=== PATIENT | male | born 1970 | race Caucasian/White ===

== ENCOUNTER 2016-12-21 15:11 | Inpatient (IN) ==
[2016-12-21] MEDS ORDERED: Naloxone 0.4 MG/ML INJ IVP PRN (16:50)
--- NOTE | 2016-12-21 17:09 | Podiatry History & Physical ---
History of Present Illness HPI: Mr. Parish is a 46 year old male who has been admitted to [facility] after being seen in wound care clinic yesterday by . Patient has a non healing ulceration to plantar distal first metatarsal left foot. Cultures were previously obtained from wound which were positive for MRSA only sensitive to linezolid and vancomycin. Patient cannot take linezolid due to SSRI use and alcohol ingestion on daily basis and therefore will be admitted for PICC placement, administration of vancomycin IV and evaluation for osteomyelitis. Patient has a medical hx sig for DM2 and states that blood glucose ranges 200- 250, CHLOE, tobacco abuse, Etoh abuse, htn, copd, neuropathy, depression, GERD, DLD, elevated LFTs. Patient presents today in stable condition. awake alert and oriented and seeking care. Patient denies any fevers, chills, n/v or flu like symptoms. Denies any pain. States there is occasionally drainage to foot. All Systems Reviewed: A 10-system review of systems was performed and is negative for pertinent findings except as documented above in the HPI. Past Med Surg Social Fam HX - Past Medical History Medical history: arthritis, COPD, diabetes, GERD, hypertension Psychiatric history: anxiety, depression - Past Surgical History Surgical History: orthopedic, other, other - Social History Smoking Status: Current every day smoker Packs per day: 1 Smokeless Tobacco Status: No Alcohol use: occasionally Drug use: none - Family History Father Living Status: Hx Family Cardiac Disorders: Yes Hx Family Respiratory Disorders: Yes Hx Family Cancer: Yes (lymphnodes) Hx Family Endocrine Disorder: Yes (DM type II) Medications and Allergies Albuterol Sulfate [Albuterol Inhaler] 2 puff IH Q4HR PRN 04/06/16 [History] Citalopram Hydrobromide [Celexa] 40 mg PO DAILY 04/06/16 [History] Metformin HCl [Glucophage] 1,000 mg PO BID 04/06/16 [History] Metoprolol Succinate 100 mg PO BID 04/06/16 [History] Multivitamin [Multi-Day Vitamins] 1 tab PO DAILY 04/06/16 [History] Pierz-3/Dha/Epa/Fish Oil [Fish Oil 1,000 mg Softgel] 2 cap PO BID 04/06/16 [ History] Omeprazole [PriLOSEC] 40 mg PO DAILY 04/06/16 [History] Quinapril HCl [Accupril] 40 mg PO DAILY 04/06/16 [History] glipiZIDE [Glipizide] 10 mg PO BID 04/06/16 [History] hydroCHLOROthiazide [Hydrochlorothiazide] 25 mg PO DAILY 04/06/16 [History] Meloxicam 15 mg PO DAILY 06/01/16 [History] Ibuprofen [Motrin] 600 mg PO BID PRN 12/21/16 [History] Ipratropium/Albuterol Neb [Duoneb] 3 ml IH Q6H PRN 12/21/16 [History] Loratadine [Claritin] 10 mg PO DAILY 12/21/16 [History] Pregabalin [Lyrica] 150 mg PO TID 12/21/16 [History] Allergies hydrocodone [From Vicodin] Adverse Reaction (Severe, Verified 04/06/16 11:59) Nausea cephalexin [From Keflex] Adverse Reaction (Verified 04/21/16 11:26) Vomiting codeine Adverse Reaction (Verified 04/21/16 11:26) Confusion morphine Adverse Reaction (Verified 04/06/16 11:59) Rash Physical Exam - Constitutional General appearance: no acute distress - Head Head exam: Present: normal inspection - Eye Eye exam: Present: PERRL Pupils: Present: normal accommodation - Neck Neck exam: Present: full ROM, normal inspection - Respiratory Additional comments: No acute distress. Breath sounds coarse to auscultation throughout. COPD and tobacco us. - Cardiovascular Cardiovascular exam: Present: +S1, +S2 - GI/Abdominal GI/Abdominal exam: Present: normal bowel sounds, soft - Extremities Exam Extremities exam: Present: full ROM, normal capillary refill, normal inspection Additional comments: There is an ulceration of the distal first met, great toe measuring 1.8cmx2.3cmx0.5cm. Diabetic full thickness wound. 20% granulation 80% fibrous tissue. Wound is surrounded by hyperkeratotic skin. There is scant serous drainage. There is pain with palpation although patient has limited sensation to entire foot due to neuropathy. There is slight erythema and edema. There is no streaking. There is mild warmth. No odor. There is no probe to bone noted. There is no sinus tracts or undermining. There is no fluctuance consistent with abscess. - Expanded Lower Extremities Exam Neuro vascular tendon exam: Present: no vascular compromise Gait: Present: antalgic, observed and normal Results - Labs Labs: All other labs normal. Assessment and Plan (1) Foot ulcer with fat layer exposed Current visit: No Status: Acute Will admit for antibiotic therapy and evaluation for osteomyelitis Orders for lab work, imaging studies and dressing changes placed Please change dressing daily - wet to dry PICC placement for administration of vancomycin per pharmacy dosing- patient positive for MRSA - placed in isolation Patient to limit ambulation- post op shoe if ambulating Diabetic diet Hospitalist services input is appreciated for medical management Will plan on sharp debridement of all hyperkeratotic skin tomorrow Will have further plan tomorrow after labwork and imaging studies have been completed Call with any issues or concerns Qualifiers: Laterality: left Qualified Code(s): L97.522 - Non-pressure chronic ulcer of other part of left foot with fat layer exposed (2) Alcohol abuse Current visit: No Status: Acute please monitor for withdrawl and possible DTs (3) Diabetes mellitus Current visit: No Status: Acute ACHS glucose monitoring Diabetic diet Strict glucose control Qualifiers: Diabetes mellitus type: type 2 Diabetes mellitus complication status: with skin complications Diabetes mellitus complication detail: with foot ulcer Diabetes mellitus nursing home insulin use: without nursing home use Qualified Code( s): E11.621 - Type 2 diabetes mellitus with foot ulcer; L97.509 - Non-pressure chronic ulcer of other part of unspecified foot with unspecified severity (4) HTN (hypertension) Current visit: No Status: Acute medical management Qualifiers: Hypertension type: essential hypertension Qualified Code(s): I10 - Essential (primary) hypertension (5) Tobacco abuse Current visit: No Status: Acute Please administer nicotine patch as requested per patient
[2016-12-21 17:40] LABS: Basophils % 0.6 %; Eosinophils # 0.1 K/mcL (0.0-0.6); Eosinophils % 0.9 %; Hematocrit 42.7 % (37.5-50.1); Hemoglobin 13.9 g/dL (12.9-16.9); Immature Granulocytes % 0.1 % (0-4); Lymphocytes # 2.2 K/mcL (0.6-4.6); Lymphocytes % 31.7 %; Mean Corpuscular HGB Conc 32.6 g/dL (31.6-35.5); Mean Corpuscular Hemoglobin 31.8 pg (28.0-33.3); Mean Corpuscular Volume 97.7 fL (83.0-100.0); Mean Platelet Volume 9.3 fL (9.4-12.4); Monocytes # 0.9 K/mcL (0.0-1.3); Monocytes % 12.7 %; Neutrophils # 3.7 K/mcL (1.6-8.9); Platelet Count 186 K/mcL (140-400); Red Blood Count 4.37 M/mcL (4.19-5.50); Red Cell Distribution Width 13.5 % (11.5-14.5)
[2016-12-21 17:57] LABS: Alanine Aminotransferase 47 Units/L (0-55); Albumin 3.2 g/dL (3.5-5.0); Albumin/Globulin Ratio 0.7 (1.1-2.2); Alkaline Phosphatase 160 Units/L (38-126); Aspartate Amino Transferase 41 Units/L (5-34); BUN/Creatinine Ratio 13 (6-26); Bilirubin,Total 0.8 mg/dL (0.2-1.2); Blood Urea Nitrogen 11 mg/dL (8-26); Calcium 9.1 mg/dL (8.6-10.8); Carbon Dioxide 27 mEq/L (19-29); Chloride 101 mEq/L (98-109); Globulin 4.5 g/dL (2.4-3.5); Glucose 144 mg/dL (70-99); Osmolality,Calculated 282 (280-300); Potassium 3.9 mEq/L (3.5-4.5); Sodium 135 mEq/L (136-145); Total Protein 7.7 g/dL (6.0-8.3); eGFR For African Americans > 60 (> 60); eGFR For Non-African Americans > 60 (> 60)
[2016-12-21] MEDS ORDERED: Vancomycin 2,000 MG in D5% in Water 250 ML IVPB SCH (18:00)
[2016-12-21] MEDS: Vancomycin 2,000 MG in D5% in Water 500 ML IVPB SCH (18:33)
[2016-12-21] MEDS ORDERED: Ipratropium/Albuterol Neb 3 ML IH PRN (18:34)
[2016-12-21] MEDS ORDERED: *HR* Dextrose 50 % in Water (Syg) 50 ML SYRINGE IVP PRN (18:35)
[2016-12-21] MEDS ORDERED: Dextrose Gel 15 GM PO PRN ×2 (18:35)
[2016-12-21] MEDS ORDERED: D5% in Water 1,000 ML IVC PRN (18:35)
--- NOTE | 2016-12-21 18:45 | Internal Medicine Consult Note ---
Date of Encounter: 12/21/16 Time of Encounter: 18:30 - Assessment and Plan (1) Foot ulcer with fat layer exposed Current Visit: No Status: Acute Assessment and plan: Chronic left foot ulcer - will need evaluation for osteomyelitis Cultures positive for MRSA - continue IV Vancomycin via PICC line Dr. Taylor is planning for debridement Plan as per primary team Thank you for the consult Qualifiers: Laterality: left Qualified Code(s): L97.522 - Non-pressure chronic ulcer of other part of left foot with fat layer exposed (2) Diabetes mellitus Current Visit: Yes Status: Chronic Assessment and plan: Diabetes mellitus type 2, [id number], hyperglycemia - with peripheral neuropathy Glucose checks, insulin sliding scale, A1c pending Hold metformin and glipizide for now Continue Lyrica Qualifiers: Diabetes mellitus type: type 2 Diabetes mellitus complication status: with skin complications Diabetes mellitus complication detail: with foot ulcer 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 Qualified Code( s): E11.621 - Type 2 diabetes mellitus with foot ulcer; L97.509 - Non-pressure chronic ulcer of other part of unspecified foot with unspecified severity (3) HTN (hypertension) Current Visit: No Status: Chronic Assessment and plan: Essential hypertension, controlled, continue home meds, monitor Qualifiers: Hypertension type: essential hypertension Qualified Code(s): I10 - Essential (primary) hypertension (4) COPD (chronic obstructive pulmonary disease) Current Visit: No Status: Chronic Assessment and plan: Stable, not in exacerbation - DuoNeb breathing treatment as needed for shortness of breath or wheezing Qualifiers: COPD type: unspecified COPD Qualified Code(s): J44.9 - Chronic obstructive pulmonary disease, unspecified (5) Tobacco abuse Current Visit: No Status: Chronic Assessment and plan: Patient smokes about half a pack of cigarettes daily and has smoked for greater than 20 years Smoking cessation counseling, nicotine patch (6) Depression with anxiety Current Visit: Yes Status: Chronic Assessment and plan: Stable, continue Celexa (7) Alcohol abuse Current Visit: No Status: Chronic Assessment and plan: Patient states he drinks about 20-30 beers daily and drinks liquor occasionally Counseled about alcohol abuse CIWA protocol, IV Ativan 1 mg as needed for withdrawal symptoms Continue IV thiamine, folic acid, multivitamin tablet (8) DVT prophylaxis Current Visit: Yes Status: Acute Assessment and plan: Continue heparin subcutaneous Internal Medicine - CN: HPI - Data of Consult Patient: new to practice Requesting Physician: Sanford Taylor, - Consult Narrative Reason for consult: Medical management History of present illness: Mr. Parish is a 46 year old male with past medical history of COPD, diabetes, GERD, hypertension, arthritis, anxiety, depression and history of alcohol abuse. Patient was admitted by podiatry today for a nonhealing ulceration to plantar distal first metatarsal of the left foot. Examined on the [facility] floor. Patient is awake and alert. Not in any distress. In provide HISTORY. No family members at bedside. Patient states he followed up with Dr. Taylor yesterday in the clinic and he had cultures positive for MRSA. This was sensitive to Zyvox and vancomycin only. Podiatry wanted to admit him for IV antibiotics, PICC line insertion and possible debridement and evaluation of osteomyelitis. Patient states he has chronic left foot pain which is been going on for almost 2 months. He states he has had surgery on debridement over his left foot and toes in the past. Patient denies fever, chills or nausea or vomiting. He denies chest pain or shortness of breath. He states there is occasional drainage of the foot. Patient states he takes all his medications regularly. He does smoke about half pack cigarettes daily and also drinks about 20-30 peers daily. Patient has a remote history of erosive drug use. Initial labs are fairly benign. Cultures as mentioned are positive for MRSA. He will require IV vancomycin. A bone scan has been ordered by podiatry which will be done in the a.m. Hospitalist service has been consulted by Dr. Taylor for medical management. Patient will be on insulin sliding scale, CIWA protocol , nicotine patch and we will continue his home medications. Patient has been explained about his condition and plan of care. He understood and agreed. No unanswered questions. CODE STATUS full code. Thank you for the consult. We will follow up on the patient. Past Med Surg Social Fam HX - Past Medical History Medical history: arthritis, COPD, diabetes, GERD, hypertension Psychiatric history: anxiety, depression - Past Surgical History Surgical History: orthopedic, other, other - Social History Smoking Status: Current every day smoker Packs per day: 1 Alcohol use: occasionally Drug use: none, cocaine (History of cocaine use about 20 years ago) Activity Level: Independent ambulation - Family History Father Living Status: Hx Family Cardiac Disorders: Yes ([place] ) Hx Family Respiratory Disorders: Yes Hx Family Cancer: Yes (lymphnodes) Hx Family Endocrine Disorder: Yes (DM type II) - Constitutional Constitutional: no fatigue, no fever(s), no weakness - EENT Eyes: no blurry vision - Cardiovascular Cardiovascular ROS IM: no chest pain, no dyspnea, no dyspnea on exertion, no orthopnea, no syncope - Respiratory Respiratory: no cough, no dyspnea, no wheezing, no chest congestion - Gastrointestinal Gastrointestinal: no abdominal pain, no belching, no bloating, no cramping, no diarrhea, no melena, no nausea, no vomiting - Genitourinary Genitourinary ROS male: no dysuria - Musculoskeletal Additional comments: Left foot pain and swelling - Neurological Neurological ROS: no abnormal gait, no dizziness, no focal weakness, no numbness , no tingling Internal Medicine - CN: Meds Albuterol Sulfate [Albuterol Inhaler] 2 puff IH Q4HR PRN 04/06/16 [History] Citalopram Hydrobromide [Celexa] 40 mg PO DAILY 04/06/16 [History] Metformin HCl [Glucophage] 1,000 mg PO BID 04/06/16 [History] Metoprolol Succinate 100 mg PO BID 04/06/16 [History] Multivitamin [Multi-Day Vitamins] 1 tab PO DAILY 04/06/16 [History] [place]-3/Dha/Epa/Fish Oil [Fish Oil 1,000 mg Softgel] 2 cap PO BID 04/06/16 [ History] Omeprazole [PriLOSEC] 40 mg PO DAILY 04/06/16 [History] Quinapril HCl [Accupril] 40 mg PO DAILY 04/06/16 [History] glipiZIDE [Glipizide] 10 mg PO BID 04/06/16 [History] hydroCHLOROthiazide [Hydrochlorothiazide] 25 mg PO DAILY 04/06/16 [History] Meloxicam 15 mg PO DAILY 06/01/16 [History] Ibuprofen [Motrin] 600 mg PO BID PRN 12/21/16 [History] Ipratropium/Albuterol Neb [Duoneb] 3 ml IH Q6H PRN 12/21/16 [History] Loratadine [Claritin] 10 mg PO DAILY 12/21/16 [History] Pregabalin [Lyrica] 150 mg PO TID 12/21/16 [History] Allergies hydrocodone [From Vicodin] Adverse Reaction (Severe, Verified 04/06/16 11:59) Nausea cephalexin [From Keflex] Adverse Reaction (Verified 04/21/16 11:26) Vomiting codeine Adverse Reaction (Verified 04/21/16 11:26) Confusion morphine Adverse Reaction (Verified 04/06/16 11:59) Rash Internal Medicine - CN: Exam - Constitutional Vitals: Temp Pulse Resp BP Pulse Ox 98.2 F 61 16 131/66 98 12/21/16 17:08 12/21/16 17:08 12/21/16 17:08 12/21/16 17:08 12/21/16 17:08 General appearance IM: Present: A&O X 3, morbidly obese, pleasant, no acute distress, answers questions appropriately - Head Head exam: Present: atraumatic - Eye Eye exam: Present: EOMI - ENT ENT exam: Present: mucous membranes moist - Neck Neck exam general surgery: Present: supple - Respiratory Respiratory exam: Present: CTAB. Absent: rales, rhonchi, stridor, wheezes, tachypnea - Cardiovascular Cardiovascular exam IM: Present: RRR, +S1, +S2 - GI/Abdominal GI/Abdominal exam IM: Present: distended (Obese ), soft. Absent: firm, guarding , rigid, tenderness - Extremities Exam Extremities exam IM: Present: radial pulses palpable and symetrical. Absent: cyanotic Additional comments: Ulceration of distal first metatarsal and great toe on the left foot, diabetic wound, no drainage, mild edema of the left lower leg and left foot - Neurological Exam Neurological exam: Present: alert, oriented X3, no focal deficits Internal Medicine - CN: Reslt - Labs CBC & Chem 7: 12/21/16 17:09 12/21/16 17:09 Labs: Short CBC 12/21/16 Range/Units 17:09 WBC 6.8 (4.3-11.1) K/mcL Hgb 13.9 (12.9-16.9) g/dL Hct 42.7 (37.5-50.1) % Plt Count 186 (140-400) K/mcL Neutrophils # 3.7 (1.6-8.9) K/mcL BMP 12/21/16 17:09 Sodium 135 L Potassium 3.9 Chloride 101 Carbon Dioxide 27 BUN 11 Creatinine 0.87 Glucose 144 H Calcium 9.1 Liver Function 12/21/16 Range/Units 17:09 Total Bilirubin 0.8 (0.2-1.2) mg/dL AST 41 H (5-34) Units/L ALT 47 (0-55) Units/L Alkaline Phosphatase 160 H (38-126) Units/L Albumin 3.2 L (3.5-5.0) g/dL - Impressions Impressions Foot X-Ray 12/21/16 17:04 IMPRESSION: Soft tissue ulceration along the plantar aspect of the forefoot likely at the level of the 1st digit. 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 Lucency in the 1st proximal phalanx increased in prominence. This may represent erosion from osteomyelitis. D/ / Delvis Mcclendon MD / Delvis Mcclendon MD Interpreting Provider: Delvis Mcclendon MD Consult Discharge Plan - Plan Referrals: Froylan Guido MD [Primary Care Provider] -
[2016-12-21] MEDS: Thiamine (B-1) 100 MG in D5% in Water 50 ML IVPB SCH (19:49)
[2016-12-21] MEDS: *HR* Heparin 5,000 UNIT/ML VIAL SQ SCH (19:50)
[2016-12-21 19:53] LABS: Hemoglobin A1C 5.4 %
[2016-12-21] MEDS: (Omega-3/Dha/Epa/Fish Oil [Fish Oil 1,000 Mg Softgel]) PO SCH (19:53)
[2016-12-21] MEDS: Folic Acid 1 MG TABLET PO SCH (19:53)
[2016-12-21] MEDS: Nicotine 21 MG PATCH.TD24 TD SCH (19:53)
[2016-12-21] MEDS: Pregabalin 75 MG CAPSULE PO SCH (19:53)
[2016-12-21] MEDS: Metoprolol XL (24 HR) Succ 50 MG TAB.ER.24H PO SCH (19:53)
[2016-12-21] MEDS: Insulin LISPRO 300 UNITS/3 ML VIAL SQ SCH (22:09)
[2016-12-21 22:47] LABS: C-Reactive Protein 15 mg/L (Less than 5)
[2016-12-22] MEDS: *HR* Heparin 5,000 UNIT/ML VIAL SQ SCH ×2 (05:49→17:34)
[2016-12-22] MEDS: Vancomycin 2,000 MG in D5% in Water 500 ML IVPB SCH ×2 (05:53→17:35)
[2016-12-22 06:44] LABS: Chol/HDL Ratio 4.9 (0-4.9)
[2016-12-22 07:06] LABS: Thyroid Stimulating Hormone 3.216 mcIU/mL (0.350-4.840)
[2016-12-22] MEDS: Loratadine 10 MG TABLET PO SCH (08:29)
[2016-12-22] MEDS: Insulin LISPRO 300 UNITS/3 ML VIAL SQ SCH ×4 (08:29→21:58)
[2016-12-22] MEDS: Pregabalin 75 MG CAPSULE PO SCH ×3 (08:30→20:19)
[2016-12-22] MEDS: Multivit/Ca/Min/Fe/FA 1 TAB TABLET PO SCH (08:30)
[2016-12-22] MEDS: Metoprolol XL (24 HR) Succ 50 MG TAB.ER.24H PO SCH ×2 (08:30→20:19)
[2016-12-22] MEDS: Nicotine 21 MG PATCH.TD24 TD SCH (08:30)
[2016-12-22] MEDS: Lisinopril 20 MG TABLET PO SCH (08:30)
[2016-12-22] MEDS: Folic Acid 1 MG TABLET PO SCH (08:30)
[2016-12-22] MEDS: hydroCHLOROthiazide 25 MG TABLET PO SCH (08:30)
[2016-12-22] MEDS: (Omega-3/Dha/Epa/Fish Oil [Fish Oil 1,000 Mg Softgel]) PO SCH ×2 (08:31→20:20)
[2016-12-22] MEDS: Thiamine (B-1) 100 MG in D5% in Water 50 ML IVPB SCH (08:47)
--- NOTE | 2016-12-22 14:01 | Podiatry Progress Note ---
Date of Encounter: 12/22/16 Time of Encounter: 12:00 - Assessment and Plan (1) Foot ulcer with fat layer exposed Current Visit: No Status: Acute Patient will remain admitted for antibiotic therapy and evaluation for osteomyelitis labs are remotely benign at this time Xray and bone scan were completed and are concerning for osteomyelitis- will order indium bone scan for further evaluation Sharp debridement of hyperkeratotic skin surrounding ulceration completed at bedside- no complications- tolerated well Please continue to change dressing daily - wet to dry powerglide was placed until blood cultures are negative, then will have PICC placement for administration of vancomycin per pharmacy dosing- patient positive for MRSA - placed in isolation Patient to limit ambulation- post op shoe if ambulating Hospitalist services input is appreciated for medical management Will plan on sharp debridement of all hyperkeratotic skin tomorrow Patient will have indium scan on sunday or sunday Bone Scan Nuclear Medicine 12/21/16 17:04 IMPRESSION: Findings concerning for osteomyelitis in the remnant proximal phalanx of the left great toe and possibly in the left distal 1st metatarsal. D/ / 12/22/2016 11:42:50 Joe Seals MD / kitty Interpreting Provider: Joe Seals MD Foot X-Ray 12/21/16 17:04 IMPRESSION: Soft tissue ulceration along the plantar aspect of the forefoot likely at the level of the 1st digit. 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 Lucency in the 1st proximal phalanx increased in prominence. This may represent erosion from osteomyelitis. D/ / Delvis Mcclendon MD / Delvis Mcclendon MD Interpreting Provider: Delvis Mcclendon MD Qualifiers: Laterality: left Qualified Code(s): L97.522 - Non-pressure chronic ulcer of other part of left foot with fat layer exposed (2) Alcohol abuse Current Visit: No Status: Chronic please monitor for withdrawl and possible DTs (3) Diabetes mellitus Current Visit: Yes Status: Chronic ACHS glucose monitoring Diabetic diet Strict glucose control Qualifiers: Diabetes mellitus type: type 2 Diabetes mellitus complication status: with skin complications Diabetes mellitus complication detail: with foot ulcer 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 Patient was admitted yesterday and started on vancomycin for MRSA which was isolated in the wound. On arrival today patient is resting comfortably. Patient underwent an xray yesterday and bone scan today. Lab work is relatively benign at this time. Patient denies any pain. Patient denies any fevers chill n/v or flu like symptoms overnight Objective - Vital Signs Vital Signs: Vital Signs Temp Pulse Resp BP Pulse Ox 12/22/16 11:08 98.4 F 52 16 129/65 96 12/22/16 07:14 98.0 F 57 18 115/66 98 12/22/16 04:39 98.2 F 57 17 122/69 96 12/21/16 22:33 23 97 12/21/16 22:32 98.3 F 58 18 121/67 97 12/21/16 20:13 98.3 F 57 18 135/84 97 12/21/16 17:08 98.2 F 61 16 131/66 98 Intake and Output 12/21/16 12/22/16 12/22/16 23:59 07:59 15:59 Intake Total 941 / 941 1031 / 1031 Output Total 0 / 0 Balance 941 / 941 1031 / 1031 Intake: IV Fluids 551 / 551 551 / 551 Vitamin B-1 100 MG In 51 / 51 51 / 51 Dextrose 5% 50 ML @ 50 mls/hr IVPB DAILY [facility] Rx# :[id number] Vancocin 2,000 MG In 500 / 500 500 / 500 Dextrose 5% 500 ML @ 250 mls/hr IVPB Q12H [facility] Rx#: [id number] Oral 390 / 390 480 / 480 Output: Urine 0 / 0 Other: Meal Breakfast Percent of Meal Consumed 75% # Voids 1 1 Weight 140.614 kg Blood Glucose* 189 167 148 - Exam Exam: Ulceration of plantar aspect of left foot distal 1st met remains, surrounded by hyperkeratosis Debrided at bedside, tolerated well, no complications Scant serous drainage No pain with palpation Pulses remain palpable bilaterally Cap refill <3 seconds Sensation intact to moderate touch No calf pain with manual compression Movement intact - Lab Result Diagrams: 12/21/16 17:09 12/21/16 17:09 Labs: Abnormal lab results MPV 9.3 fL (9.4-12.4) L 12/21/16 17:09 ESR 49 mm/hr (0-10) H 12/21/16 17:11 Sodium 135 mEq/L (136-145) L 12/21/16 17:09 Glucose 144 mg/dL (70-99) H 12/21/16 17:09 POC Glucose 148 (58-89) H 12/21/16 17:07 AST 41 Units/L (5-34) H 12/21/16 17:09 Alkaline Phosphatase 160 Units/L (38-126) H 12/21/16 17:09 C-Reactive Protein 15 mg/L (Less than 5) H 12/21/16 17:09 Albumin 3.2 g/dL (3.5-5.0) L 12/21/16 17:09 Globulin 4.5 g/dL (2.4-3.5) H 12/21/16 17:09 Albumin/Globulin Ratio 0.7 (1.1-2.2) L 12/21/16 17:09 Triglycerides 222 mg/dL (< 150) H 12/22/16 05:25 VLDL Cholesterol, Calc 44 mg/dL (< 31) H 12/22/16 05:25 HDL Cholesterol 35 mg/dL (40-59) L 12/22/16 05:25 Consult Discharge Plan - Plan Referrals: Froylan Guido MD [Primary Care Provider] -
--- NOTE | 2016-12-22 15:26 | Internal Med Progress Note ---
Date of Encounter: 12/22/16 Time of Encounter: 07:45 - Assessment and plan (1) Foot ulcer with fat layer exposed Current Visit: No Status: Acute Assessment and plan: Chronic left foot ulcer - probable osteomyelitis Cultures positive for MRSA - continue IV Vancomycin via PICC line Bone scan results pending Dr. Taylor is planning for debridement probably tomorrow, Plan as per primary team Thank you for the consult. We will follow up on the patient. Qualifiers: Laterality: left Qualified Code(s): L97.522 - Non-pressure chronic ulcer of other part of left foot with fat layer exposed (2) Diabetes mellitus Current Visit: Yes Status: Chronic Assessment and plan: Diabetes mellitus type 2, [id number], hyperglycemia - with peripheral neuropathy Glucose checks ACHS, insulin sliding scale HbA1c - 5.4 Hold metformin and glipizide for now, restart home meds when patient is discharged Continue Lyrica Qualifiers: Diabetes mellitus type: type 2 Diabetes mellitus complication status: with skin complications Diabetes mellitus complication detail: with foot ulcer Diabetes mellitus usp insulin use: without usp use Qualified Code( s): E11.621 - Type 2 diabetes mellitus with foot ulcer; L97.509 - Non-pressure chronic ulcer of other part of unspecified foot with unspecified severity (3) HTN (hypertension) Current Visit: No Status: Chronic Assessment and plan: Essential hypertension, controlled, continue home meds, monitor Qualifiers: Hypertension type: essential hypertension Qualified Code(s): I10 - Essential (primary) hypertension (4) COPD (chronic obstructive pulmonary disease) Current Visit: No Status: Chronic Assessment and plan: Stable, not in exacerbation - DuoNeb breathing treatment as needed for shortness of breath or wheezing Qualifiers: COPD type: unspecified COPD Qualified Code(s): J44.9 - Chronic obstructive pulmonary disease, unspecified (5) Tobacco abuse Current Visit: No Status: Chronic Assessment and plan: Patient smokes about half a pack of cigarettes daily and has smoked for greater than 20 years Smoking cessation counseling, nicotine patch (6) Depression with anxiety Current Visit: Yes Status: Chronic Assessment and plan: Stable, continue Celexa (7) Alcohol abuse Current Visit: No Status: Chronic Assessment and plan: Patient states he drinks about 20-30 beers daily and drinks liquor occasionally Counseled about alcohol abuse CIWA protocol, IV Ativan 1 mg as needed for withdrawal symptoms Continue IV thiamine, folic acid, multivitamin tablet (8) DVT prophylaxis Current Visit: Yes Status: Acute Assessment and plan: Continue heparin subcutaneous - Time Spent With Patient 25 - 35 minutes - Subjective Interval history: Examined this morning. Patient is awake and alert. Not in any distress. Tolerating oral diet. Denies chest pain or shortness of breath. Patient complains of left foot pain. Worse with weightbearing. Says it is sharp at times. Improves with pain meds. Patient also complains of tremors and anxiety. Patient is probably having early alcohol withdrawal symptoms. IV antibiotics continued for osteomyelitis. Debridement scheduled for tomorrow. No fever. No other acute events or complaints. - Constitutional Vitals: Temp Pulse Resp BP Pulse Ox 98.4 F 52 16 129/65 96 12/22/16 11:08 12/22/16 11:08 12/22/16 11:08 12/22/16 11:08 12/22/16 11:08 General appearance: Present: A&O X 3, morbidly obese, pleasant, no acute distress, answers questions appropriately Exam: anxiety - Head Head exam: Present: atraumatic - Eye Eye exam: Present: EOMI - ENT ENT exam: Present: mucous membranes moist - Neck Neck exam general surgery: Present: supple - Respiratory Respiratory exam: Present: CTAB. Absent: rales, rhonchi, stridor, wheezes, tachypnea - Cardiovascular Cardiovascular exam: Present: RRR, +S1, +S2 - GI/Abdominal GI/Abdominal exam: Present: distended (obese), soft. Absent: firm, guarding, rigid, tenderness - Extremities Exam Extremities exam: Present: radial pulses palpable and symetrical. Absent: cyanotic Additional comments: Ulceration of distal first metatarsal and great toe on the left foot, diabetic wound, no drainage, mild edema of the left lower leg and left foot - Neurological Exam Neurological exam: Present: alert, oriented X3, no focal deficits Internal Medicine: Result - Labs CBC & Chem 7: 12/21/16 17:09 12/21/16 17:09 Labs: Short CBC 12/21/16 Range/Units 17:09 WBC 6.8 (4.3-11.1) K/mcL Hgb 13.9 (12.9-16.9) g/dL Hct 42.7 (37.5-50.1) % Plt Count 186 (140-400) K/mcL Neutrophils # 3.7 (1.6-8.9) K/mcL BMP 12/21/16 17:09 Sodium 135 L Potassium 3.9 Chloride 101 Carbon Dioxide 27 BUN 11 Creatinine 0.87 Glucose 144 H Calcium 9.1 Liver Function 12/21/16 Range/Units 17:09 Total Bilirubin 0.8 (0.2-1.2) mg/dL AST 41 H (5-34) Units/L ALT 47 (0-55) Units/L Alkaline Phosphatase 160 H (38-126) Units/L Albumin 3.2 L (3.5-5.0) g/dL - Impressions Impressions Bone Scan Nuclear Medicine 12/21/16 17:04 IMPRESSION: Findings concerning for osteomyelitis in the remnant proximal phalanx of the left great toe and possibly in the left distal 1st metatarsal. D/ / 12/22/2016 11:42:50 Joe Seals MD / kitty Interpreting Provider: Joe Seals MD Foot X-Ray 12/21/16 17:04 IMPRESSION: Soft tissue ulceration along the plantar aspect of the forefoot likely at the level of the 1st digit. 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 Lucency in the 1st proximal phalanx increased in prominence. This may represent erosion from osteomyelitis. D/ / Delvis Mcclendon MD / Delvis Mcclendon MD Interpreting Provider: Delvis Mcclendon MD Consult Discharge Plan - Plan Referrals: Froylan Guido MD [Primary Care Provider] -
[2016-12-23 05:27] LABS: BUN/Creatinine Ratio 13 (6-26); Blood Urea Nitrogen 12 mg/dL (8-26); Calcium 9.2 mg/dL (8.6-10.8); Carbon Dioxide 28 mEq/L (19-29); Chloride 102 mEq/L (98-109); Glucose 159 mg/dL (70-99); Osmolality,Calculated 287 (280-300); Potassium 3.9 mEq/L (3.5-4.5); Sodium 137 mEq/L (136-145); eGFR For African Americans > 60 (> 60); eGFR For Non-African Americans > 60 (> 60)
[2016-12-23] MEDS ORDERED: Vancomycin 1,500 MG in D5% in Water 250 ML IVPB SCH (06:00)
[2016-12-23] MEDS: *HR* Heparin 5,000 UNIT/ML VIAL SQ SCH ×2 (06:05→16:51)
[2016-12-23] MEDS: Vancomycin 2,000 MG in D5% in Water 500 ML IVPB SCH (06:06)
[2016-12-23] MEDS: Insulin LISPRO 300 UNITS/3 ML VIAL SQ SCH ×4 (07:45→20:59)
[2016-12-23] MEDS: Loratadine 10 MG TABLET PO SCH (07:46)
[2016-12-23] MEDS: Pregabalin 75 MG CAPSULE PO SCH ×3 (07:46→19:38)
[2016-12-23] MEDS: Folic Acid 1 MG TABLET PO SCH (07:46)
[2016-12-23] MEDS: Multivit/Ca/Min/Fe/FA 1 TAB TABLET PO SCH (07:46)
[2016-12-23] MEDS: Lisinopril 20 MG TABLET PO SCH (07:46)
[2016-12-23] MEDS: hydroCHLOROthiazide 25 MG TABLET PO SCH (07:46)
[2016-12-23] MEDS: Nicotine 21 MG PATCH.TD24 TD SCH (07:47)
[2016-12-23] MEDS: Thiamine (B-1) 100 MG in D5% in Water 50 ML IVPB SCH (07:47)
[2016-12-23] MEDS: Metoprolol XL (24 HR) Succ 50 MG TAB.ER.24H PO SCH ×2 (07:47→19:38)
[2016-12-23] MEDS: (Omega-3/Dha/Epa/Fish Oil [Fish Oil 1,000 Mg Softgel]) PO SCH ×2 (07:47→19:41)
--- NOTE | 2016-12-23 09:15 | Podiatry Progress Note ---
Date of Encounter: 12/22/16 Time of Encounter: 18:00 - Assessment and Plan (1) Cellulitis of left foot due to methicillin-resistant Staphylococcus aureus Current Visit: Yes Status: Acute Assessment: #1 MRSA cellulitis associated with diabetic foot ulcer left #2 we will review 3-phase bone scan. No definitive diagnosis at this time because of the altered biomechanics due to previous surgical intervention. If the 3-phase bone scan were completely negative we would no longer need an indium labeled cell scan but due to the positive nature of these 3-phase scan will need to proceed with the indium labeled cell scan to determine if our index of suspicion of osteomyelitis is proven #3 history of diabetes with neuropathy and multiple comorbidities as outlined in history Plan: #1 continue vancomycin monitor kidney function #2 daily wound care #3 pending indium labeled white blood cell scan for Sunday, December 25 #4 showed blood cultures be negative then we can proceed with use of PICC line and IV antibiotics outpatient/vancomycin (2) Toe ulcer Current Visit: No Status: Acute Qualifiers: Laterality: left Non-pressure ulcer stage: limited to breakdown of skin Qualified Code(s): L97.521 - Non-pressure chronic ulcer of other part of left foot limited to breakdown of skin Subjective Principal diagnosis: MRSA cellulitis left foot, with diabetic foot ulcer Interval history: Patient recently underwent three-phase bone scan with impending indium labeled white cell scan on Sunday. Proven MRSA sensitive to Zyvox, vancomycin and rifampin and clindamycin. Because the patient's SSI use and alcohol abuse patient will continue on vancomycin as the antibiotic of choice. Stable no complaints of chest pain nausea vomiting fever chills Objective - Vital Signs Vital Signs: Vital Signs Temp Pulse Resp BP Pulse Ox 12/23/16 07:57 97 12/23/16 07:29 98.0 F 58 16 133/69 97 12/23/16 04:14 97.6 F 58 16 138/77 98 12/22/16 23:31 14 96 12/22/16 23:17 98.0 F 56 16 106/62 97 12/22/16 20:34 98 12/22/16 20:32 98.2 F 58 18 131/57 96 12/22/16 16:51 97.7 F 56 14 144/78 96 12/22/16 15:21 97.7 F 57 16 128/72 96 12/22/16 11:08 98.4 F 52 16 129/65 96 Intake and Output 12/22/16 12/23/16 12/23/16 23:59 07:59 15:59 Intake Total 500 / 500 0 / 0 Output Total 700 / 700 Balance 500 / 500 -700 / -700 Intake: IV Fluids 500 / 500 Vancocin 2,000 MG In 500 / 500 Dextrose 5% 500 ML @ 250 mls/hr IVPB Q12H [facility] Rx#: [id number] Oral 0 / 0 Output: Urine 700 / 700 Other: Weight 133.719 kg Blood Glucose* 147 246 Patient Weight 12/23/16 23:59 Weight 133.719 kg - Exam Exam: Slow resolution of cellulitis and edema/erythema of the right distal medial forefoot and wound without evidence of fluctuance abscess ascending cellulitis or lymphangitis at this time - Lab Result Diagrams: 12/21/16 17:09 12/23/16 04:59 Labs: Abnormal lab results MPV 9.3 fL (9.4-12.4) L 12/21/16 17:09 ESR 49 mm/hr (0-10) H 12/21/16 17:11 Glucose 159 mg/dL (70-99) H 12/23/16 04:59 POC Glucose 246 (58-89) H 12/23/16 07:34 AST 41 Units/L (5-34) H 12/21/16 17:09 Alkaline Phosphatase 160 Units/L (38-126) H 12/21/16 17:09 C-Reactive Protein 15 mg/L (Less than 5) H 12/21/16 17:09 Albumin 3.2 g/dL (3.5-5.0) L 12/21/16 17:09 Globulin 4.5 g/dL (2.4-3.5) H 12/21/16 17:09 Albumin/Globulin Ratio 0.7 (1.1-2.2) L 12/21/16 17:09 Triglycerides 222 mg/dL (< 150) H 12/22/16 05:25 VLDL Cholesterol, Calc 44 mg/dL (< 31) H 12/22/16 05:25 HDL Cholesterol 35 mg/dL (40-59) L 12/22/16 05:25 Microbiology, Last 48 Hours 12/21/16 19:22 Blood Culture - Preliminary Peripheral Venipuncture No growth. 12/21/16 19:22 Blood Culture - Preliminary Peripheral Venipuncture No growth. Consult Discharge Plan - Plan Referrals: Froylan Guido MD [Primary Care Provider] -
--- NOTE | 2016-12-23 11:22 | Internal Med Progress Note ---
Date of Encounter: 12/23/16 Time of Encounter: 11:20 - Assessment and plan (1) Cellulitis of left foot due to methicillin-resistant Staphylococcus aureus Current Visit: Yes Status: Acute Assessment and plan: Sof ar blood cx - no growth Cont continue vancomycin IV Cont close monitoring renal function Cont local daily wound care Scheduled for indium labeled white blood cell scan for December 25 (2) Osteomyelitis of toe of left foot Current Visit: Yes Status: Acute (3) Alcohol abuse Current Visit: No Status: Chronic Assessment and plan: Patient stated he drinks about 20-30 beers daily and drinks liquor occasionally Counseled about alcohol abuse [place] protocol, IV Ativan 1 mg as needed for withdrawal symptoms Continue thiamine, folic acid, multivitamin tablet Dr. Taylor started him 3 beers with each meal today (4) HTN (hypertension) Current Visit: No Status: Chronic Assessment and plan: Essential hypertension, controlled, continue home meds, monitor Qualifiers: Hypertension type: essential hypertension Qualified Code(s): I10 - Essential (primary) hypertension (5) COPD (chronic obstructive pulmonary disease) Current Visit: No Status: Chronic Assessment and plan: Stable, not in exacerbation - DuoNeb breathing treatment as needed for shortness of breath or wheezing Qualifiers: COPD type: unspecified COPD Qualified Code(s): J44.9 - Chronic obstructive pulmonary disease, unspecified (6) Tobacco abuse Current Visit: No Status: Chronic Assessment and plan: Patient smokes about half a pack of cigarettes daily and has smoked for greater than 20 years Smoking cessation counseling, nicotine patch (7) DVT prophylaxis Current Visit: Yes Status: Acute Assessment and plan: Continue heparin subcutaneous - Subjective Interval history: Mr. Parish is a 46 year old male who has been admitted to [facility] after being seen in wound care clinic by . Patient has a non healing ulceration to plantar distal first metatarsal left foot. Cultures were previously obtained from wound which were positive for MRSA only sensitive to linezolid and vancomycin. Patient cannot take linezolid due to SSRI use and alcohol ingestion on daily basis and therefore pt was admitted for PICC placement, administration of vancomycin IV and evaluation for osteomyelitis. Pt denied any CP / SOB. He does drink 12-20 beers every day. He had his last alcohol 3 days ago. today he c /o mild tremors. - Constitutional Vitals: Temp Pulse Resp BP Pulse Ox 98.0 F 58 16 133/69 97 12/23/16 07:29 12/23/16 07:29 12/23/16 07:29 12/23/16 07:29 12/23/16 07:57 General appearance: Present: A&O X 3, morbidly obese, pleasant, no acute distress, answers questions appropriately - Head Head exam: Present: atraumatic, normal inspection - Respiratory Respiratory exam: Present: decreased breath sounds, wheezes. Absent: rales, respiratory distress, rhonchi - Cardiovascular Cardiovascular exam: Present: RRR, +S1, +S2. Absent: systolic murmur - GI/Abdominal GI/Abdominal exam: Present: distended, normal bowel sounds, soft. Absent: rebound, tenderness - Extremities Exam Additional comments: non healing 1 cm size ulcer over Left great toe planter region at 1st MTP proximal base region noticed. Pulses are palpable and diminished - Psychiatric Psychiatric exam: Present: normal affect, normal mood Internal Medicine: Result - Labs CBC & Chem 7: 12/21/16 17:09 12/23/16 04:59 Labs: BMP 12/23/16 04:59 Sodium 137 Potassium 3.9 Chloride 102 Carbon Dioxide 28 BUN 12 Creatinine 0.92 Glucose 159 H Calcium 9.2 - Impressions Impressions Bone Scan Nuclear Medicine 12/21/16 17:04 IMPRESSION: Findings concerning for osteomyelitis in the remnant proximal phalanx of the left great toe and possibly in the left distal 1st metatarsal. D/ / 12/22/2016 11:42:50 Joe Seals MD / kitty Interpreting Provider: Joe Seals MD Consult Discharge Plan - Plan Referrals: Froylan Guido MD [Primary Care Provider] -
[2016-12-23] MEDS: Beer can PO SCH ×2 (11:55→16:48)
[2016-12-23] MEDS: Vancomycin 1,250 MG in D5% in Water 250 ML IVPB SCH (16:48)
[2016-12-24 03:33] LABS: BUN/Creatinine Ratio 12 (6-26); Blood Urea Nitrogen 11 mg/dL (8-26); eGFR For African Americans > 60 (> 60); eGFR For Non-African Americans > 60 (> 60)
[2016-12-24] MEDS: Vancomycin 1,250 MG in D5% in Water 250 ML IVPB SCH ×2 (05:32→18:45)
[2016-12-24] MEDS: *HR* Heparin 5,000 UNIT/ML VIAL SQ SCH ×2 (05:32→18:45)
[2016-12-24] MEDS: Pregabalin 75 MG CAPSULE PO SCH ×3 (09:28→21:04)
[2016-12-24] MEDS: Beer can PO SCH ×3 (09:28→17:30)
[2016-12-24] MEDS: Lisinopril 20 MG TABLET PO SCH (09:29)
[2016-12-24] MEDS: Loratadine 10 MG TABLET PO SCH (09:29)
[2016-12-24] MEDS: Metoprolol XL (24 HR) Succ 50 MG TAB.ER.24H PO SCH ×2 (09:29→21:11)
[2016-12-24] MEDS: hydroCHLOROthiazide 25 MG TABLET PO SCH (09:29)
[2016-12-24] MEDS: Thiamine (B-1) 100 MG in D5% in Water 50 ML IVPB SCH (09:29)
[2016-12-24] MEDS: Multivit/Ca/Min/Fe/FA 1 TAB TABLET PO SCH (09:29)
[2016-12-24] MEDS: Nicotine 21 MG PATCH.TD24 TD SCH (09:29)
[2016-12-24] MEDS: Folic Acid 1 MG TABLET PO SCH (09:30)
[2016-12-24] MEDS: (Omega-3/Dha/Epa/Fish Oil [Fish Oil 1,000 Mg Softgel]) PO SCH ×2 (09:30→21:58)
[2016-12-24] MEDS: Insulin LISPRO 300 UNITS/3 ML VIAL SQ SCH ×4 (09:31→21:11)
--- NOTE | 2016-12-24 10:30 | Internal Med Progress Note ---
Date of Encounter: 12/24/16 Time of Encounter: 10:28 - Assessment and plan (1) Cellulitis of left foot due to methicillin-resistant Staphylococcus aureus Current Visit: Yes Status: Acute Assessment and plan: So far blood cx - no growth Cont continue vancomycin IV Cont close monitoring renal function Cont local daily wound care Scheduled for indium labeled white blood cell scan for December 25 (2) Osteomyelitis of toe of left foot Current Visit: Yes Status: Acute (3) Alcohol abuse Current Visit: No Status: Chronic Assessment and plan: Patient stated he drinks about 20-30 beers daily and drinks liquor occasionally Counseled about alcohol abuse [facility] protocol, IV Ativan 1 mg as needed for withdrawal symptoms Continue thiamine, folic acid, multivitamin tablet Dr. Taylor started him 1 beer with each meal will give him librium 25mg TID (4) HTN (hypertension) Current Visit: No Status: Chronic Assessment and plan: Essential hypertension, controlled, continue home meds, monitor Qualifiers: Hypertension type: essential hypertension Qualified Code(s): I10 - Essential (primary) hypertension (5) COPD (chronic obstructive pulmonary disease) Current Visit: No Status: Chronic Assessment and plan: Stable, not in exacerbation - DuoNeb breathing treatment as needed for shortness of breath or wheezing Qualifiers: COPD type: unspecified COPD Qualified Code(s): J44.9 - Chronic obstructive pulmonary disease, unspecified (6) Tobacco abuse Current Visit: No Status: Chronic Assessment and plan: Patient smokes about half a pack of cigarettes daily and has smoked for greater than 20 years Smoking cessation counseling, nicotine patch (7) DVT prophylaxis Current Visit: Yes Status: Acute Assessment and plan: Continue heparin subcutaneous - Subjective Interval history: Mr. Parish is a 46 year old male who has been admitted to [facility] after being seen in wound care clinic by . Patient has a non healing ulceration to plantar distal first metatarsal left foot. Cultures were previously obtained from wound which were positive for MRSA only sensitive to linezolid and vancomycin. Patient cannot take linezolid due to SSRI use and alcohol ingestion on daily basis and therefore pt was admitted for PICC placement, administration of vancomycin IV and evaluation for osteomyelitis. Pt denied any CP / SOB. He does drink 20 - 30 beers every day. He had his last alcohol the night before he got admitted here. His tremors / shakiness are better today - Constitutional Vitals: Temp Pulse Resp BP Pulse Ox 97.7 F 54 16 104/58 97 12/24/16 04:30 12/24/16 04:30 12/24/16 04:30 12/24/16 04:30 12/24/16 09:00 General appearance: Present: A&O X 3, morbidly obese, pleasant, no acute distress, answers questions appropriately - Head Head exam: Present: atraumatic, normal inspection - Neck Neck exam general surgery: Present: supple. Absent: tenderness - Respiratory Respiratory exam: Present: decreased breath sounds, wheezes. Absent: rales, respiratory distress, rhonchi - Cardiovascular Cardiovascular exam: Present: RRR, +S1, +S2. Absent: diastolic murmur, gallop, rubs, systolic murmur - GI/Abdominal GI/Abdominal exam: Present: distended, normal bowel sounds, soft. Absent: rebound, rigid - Extremities Exam Extremities exam: Present: pedal edema. Absent: calf tenderness, tenderness Additional comments: non healing 1 cm size ulcer over Left great toe planter region at 1st MTP proximal base region noticed. Pulses are palpable and diminished - Neurological Exam Neurological exam: Present: alert, oriented X3 - Psychiatric Psychiatric exam: Present: normal affect, normal mood Internal Medicine: Result - Labs CBC & Chem 7: 12/21/16 17:09 12/24/16 03:10 Labs: BMP 12/24/16 03:10 BUN 11 Creatinine 0.92 Consult Discharge Plan - Plan Referrals: Froylan Guido MD [Primary Care Provider] - (web request sent on 12/23/16)
[2016-12-25] MEDS ORDERED: Acetaminophen 325 MG TABLET PO PRN (02:53)
[2016-12-25 05:52] LABS: INR 1.2
[2016-12-25 06:03] LABS: Basophils % 0.6 %; Eosinophils # 0.1 K/mcL (0.0-0.6); Eosinophils % 1.8 %; Hemoglobin 13.7 g/dL (12.9-16.9); Immature Granulocytes % 0.5 % (0-4); Lymphocytes # 2.3 K/mcL (0.6-4.6); Lymphocytes % 34.3 %; Mean Corpuscular HGB Conc 32.6 g/dL (31.6-35.5); Mean Corpuscular Hemoglobin 31.9 pg (28.0-33.3); Mean Corpuscular Volume 97.9 fL (83.0-100.0); Mean Platelet Volume 9.6 fL (9.4-12.4); Monocytes # 0.8 K/mcL (0.0-1.3); Monocytes % 12.5 %; Neutrophils # 3.4 K/mcL (1.6-8.9); Platelet Count 174 K/mcL (140-400); Red Blood Count 4.29 M/mcL (4.19-5.50); Red Cell Distribution Width 13.5 % (11.5-14.5); Segmented Neutrophils % 50.3 %
[2016-12-25 06:05] LABS: BUN/Creatinine Ratio 15 (6-26); Blood Urea Nitrogen 16 mg/dL (8-26); eGFR For African Americans > 60 (> 60); eGFR For Non-African Americans > 60 (> 60)
[2016-12-25 06:07] LABS: Alanine Aminotransferase 57 Units/L (0-55); Albumin 3.2 g/dL (3.5-5.0); Albumin/Globulin Ratio 0.8 (1.1-2.2); Alkaline Phosphatase 135 Units/L (38-126); Aspartate Amino Transferase 65 Units/L (5-34); BUN/Creatinine Ratio 14 (6-26); Bilirubin,Total 1.2 mg/dL (0.2-1.2); Blood Urea Nitrogen 15 mg/dL (8-26); Calcium 9.2 mg/dL (8.6-10.8); Carbon Dioxide 28 mEq/L (19-29); Chloride 98 mEq/L (98-109); Glucose 179 mg/dL (70-99); Magnesium 1.7 mg/dL (1.6-2.6); Osmolality,Calculated 281 (280-300); Potassium 3.8 mEq/L (3.5-4.5); Sodium 133 mEq/L (136-145); Total Protein 7.2 g/dL (6.0-8.3); eGFR For African Americans > 60 (> 60); eGFR For Non-African Americans > 60 (> 60)
[2016-12-25] MEDS: Vancomycin 1,250 MG in D5% in Water 250 ML IVPB SCH ×2 (06:07→12:32)
[2016-12-25] MEDS: *HR* Heparin 5,000 UNIT/ML VIAL SQ SCH ×2 (06:08→17:26)
[2016-12-25] MEDS: Insulin LISPRO 300 UNITS/3 ML VIAL SQ SCH ×4 (08:28→21:14)
[2016-12-25] MEDS: Beer can PO SCH ×3 (08:29→17:27)
[2016-12-25] MEDS: Pregabalin 75 MG CAPSULE PO SCH ×3 (08:29→21:13)
[2016-12-25] MEDS: Folic Acid 1 MG TABLET PO SCH (08:29)
[2016-12-25] MEDS: Metoprolol XL (24 HR) Succ 50 MG TAB.ER.24H PO SCH ×2 (08:30→21:14)
[2016-12-25] MEDS: Nicotine 21 MG PATCH.TD24 TD SCH (08:30)
[2016-12-25] MEDS: hydroCHLOROthiazide 25 MG TABLET PO SCH (08:30)
[2016-12-25] MEDS: Loratadine 10 MG TABLET PO SCH (08:30)
[2016-12-25] MEDS: Multivit/Ca/Min/Fe/FA 1 TAB TABLET PO SCH (08:30)
[2016-12-25] MEDS: Lisinopril 20 MG TABLET PO SCH (08:30)
[2016-12-25] MEDS: (Omega-3/Dha/Epa/Fish Oil [Fish Oil 1,000 Mg Softgel]) PO SCH (08:31)
[2016-12-25] MEDS: Thiamine (B-1) 100 MG in D5% in Water 50 ML IVPB SCH (11:59)
[2016-12-25] MEDS ORDERED: Lidocaine -MPF 1% 5 ML AMPUL INFILT ONE (12:14)
[2016-12-25] MEDS ORDERED: Lidocaine -MPF 1% 2 ML VIAL INFILT ONE (13:30)
--- NOTE | 2016-12-25 17:53 | Podiatry Progress Note ---
Date of Encounter: 12/25/16 Time of Encounter: 17:44 - Assessment and Plan (1) Cellulitis of left foot due to methicillin-resistant Staphylococcus aureus Current Visit: Yes Status: Acute Assessment: #1 MRSA cellulitis associated with diabetic foot ulcer left #2 we will review 3-phase bone scan. No definitive diagnosis at this time because of the altered biomechanics due to previous surgical intervention. If the 3-phase bone scan were completely negative we would no longer need an indium labeled cell scan but due to the positive nature of these 3-phase scan will need to proceed with the indium labeled cell scan to determine if our index of suspicion of osteomyelitis is proven #3 history of diabetes with neuropathy and multiple comorbidities as outlined in history Plan: #1 continue vancomycin monitor kidney function #2 daily wound care #3 pending indium labeled white blood cell scan for Sunday, #4 showed blood cultures be negative then we can proceed with use of PICC line and IV antibiotics outpatient/vancomycin Dictation for 12/25/2016 Assessment: #1 3-phase bone scan positive but nonspecific x-rays are equivocal for osteomyelitis no obvious erosion or changes #2 white blood cell scan/indium label scan performed today results pending. Results of scan, will help determine course of action either amputation of toe or debridement with placement of skin graft. #3 continue IV vancomycin for obvious MRSA infection (2) Toe ulcer Current Visit: No Status: Acute Qualifiers: Laterality: left Non-pressure ulcer stage: limited to breakdown of skin Qualified Code(s): L97.521 - Non-pressure chronic ulcer of other part of left foot limited to breakdown of skin Subjective Principal diagnosis: MRSA cellulitis left foot, with diabetic foot ulcer Interval history: Patient without fever or chills nausea vomiting. No overt symptoms of alcohol withdrawal. No chest pain shortness of breath. Patient somewhat anxious. Objective - Vital Signs Vital Signs: Vital Signs Temp Pulse Resp BP Pulse Ox 12/25/16 16:10 97.5 F L 54 17 97/50 95 12/25/16 10:55 97.4 F L 58 18 107/54 94 12/25/16 08:49 96 12/25/16 07:29 97.6 F 58 18 124/64 96 12/25/16 00:29 18 96/59 94 12/24/16 23:23 21 96/59 94 12/24/16 23:10 97.7 F 59 17 96/59 93 12/24/16 20:17 97.8 F 53 17 108/57 96 Intake and Output 12/25/16 12/25/16 12/25/16 07:59 15:59 23:59 Intake Total 0 / 0 240 / 240 Output Total 1800 / 1800 0 / 0 Balance -1800 / -1800 240 / 240 Intake: IV Fluids 0 / 0 Vancocin 1,250 MG In 0 / 0 Dextrose 5% 250 ML @ 166. 67 mls/hr IVPB Q12H [facility] Rx#:[id number] Oral 0 / 0 240 / 240 Output: Urine 1800 / 1800 0 / 0 Other: Meal Breakfast Percent of Meal Consumed 100% Blood Glucose* 157 188 166 - Exam Exam: Wound unchanged although we see significant reduction in edema and erythema as of inspection on December 24, 2016. Incision: Present: healing, inflamed, clean and dry - Lab Result Diagrams: 12/25/16 04:46 12/25/16 04:46 Labs: Abnormal lab results ESR 49 mm/hr (0-10) H 12/21/16 17:11 PT 13.0 Seconds (9.4-12.1) H 12/25/16 04:46 Sodium 133 mEq/L (136-145) L 12/25/16 04:46 Glucose 179 mg/dL (70-99) H 12/25/16 04:46 POC Glucose 188 (58-89) H 12/25/16 11:06 AST 65 Units/L (5-34) H 12/25/16 04:46 ALT 57 Units/L (0-55) H 12/25/16 04:46 Alkaline Phosphatase 135 Units/L (38-126) H 12/25/16 04:46 C-Reactive Protein 15 mg/L (Less than 5) H 12/21/16 17:09 Albumin 3.2 g/dL (3.5-5.0) L 12/25/16 04:46 Globulin 4.0 g/dL (2.4-3.5) H 12/25/16 04:46 Albumin/Globulin Ratio 0.8 (1.1-2.2) L 12/25/16 04:46 Triglycerides 222 mg/dL (< 150) H 12/22/16 05:25 VLDL Cholesterol, Calc 44 mg/dL (< 31) H 12/22/16 05:25 HDL Cholesterol 35 mg/dL (40-59) L 12/22/16 05:25 Consult Discharge Plan - Plan Referrals: Froylan Guido MD [Primary Care Provider] - 12/29/16 9:45 am (web request sent on 12/23/16)
--- NOTE | 2016-12-25 18:11 | Internal Med Progress Note ---
Date of Encounter: 12/25/16 Time of Encounter: 18:10 - Assessment and plan (1) Cellulitis of left foot due to methicillin-resistant Staphylococcus aureus Current Visit: Yes Status: Acute Assessment and plan: So far blood cx - no growth Cont continue vancomycin IV Cont close monitoring renal function Cont local daily wound care Had indium labeled white blood cell scan done today - results are pending (2) Osteomyelitis of toe of left foot Current Visit: Yes Status: Acute (3) Alcohol abuse Current Visit: No Status: Chronic Assessment and plan: Patient stated he drinks about 20-30 beers daily and drinks liquor occasionally Counseled about alcohol abuse WA protocol, IV Ativan 1 mg as needed for withdrawal symptoms Continue thiamine, folic acid, multivitamin tablet Dr. Taylor started him 1 beer with each meal Cnt librium 25mg TID PRN (4) HTN (hypertension) Current Visit: No Status: Chronic Assessment and plan: Essential hypertension, controlled, continue home meds, monitor Qualifiers: Hypertension type: essential hypertension Qualified Code(s): I10 - Essential (primary) hypertension (5) COPD (chronic obstructive pulmonary disease) Current Visit: No Status: Chronic Assessment and plan: Stable, not in exacerbation - DuoNeb breathing treatment as needed for shortness of breath or wheezing Qualifiers: COPD type: unspecified COPD Qualified Code(s): J44.9 - Chronic obstructive pulmonary disease, unspecified (6) Tobacco abuse Current Visit: No Status: Chronic Assessment and plan: Patient smokes about half a pack of cigarettes daily and has smoked for greater than 20 years Smoking cessation counseling, nicotine patch (7) DVT prophylaxis Current Visit: Yes Status: Acute Assessment and plan: Continue heparin subcutaneous - Subjective Interval history: Mr. Parish is a 46 year old male who has been admitted to [facility] after being seen in wound care clinic by . Patient has a non healing ulceration to plantar distal first metatarsal left foot. Cultures were previously obtained from wound which were positive for MRSA only sensitive to linezolid and vancomycin. Patient cannot take linezolid due to SSRI use and alcohol ingestion on daily basis and therefore pt was admitted for PICC placement, administration of vancomycin IV and evaluation for osteomyelitis. Pt denied any CP / SOB. He does drink 20 - 30 beers every day. He had his last alcohol the night before he got admitted here. His tremors / shakiness are better now. No new complaints. - Constitutional Vitals: Temp Pulse Resp BP Pulse Ox 97.5 F L 54 17 97/50 95 12/25/16 16:10 12/25/16 16:10 12/25/16 16:10 12/25/16 16:10 12/25/16 16:10 General appearance: Present: A&O X 3, morbidly obese, pleasant, no acute distress, answers questions appropriately - Head Head exam: Present: atraumatic, normal inspection - Respiratory Respiratory exam: Present: decreased breath sounds, wheezes. Absent: rales, respiratory distress, rhonchi - Cardiovascular Cardiovascular exam: Present: RRR, +S1, +S2. Absent: diastolic murmur, gallop, rubs, systolic murmur - GI/Abdominal GI/Abdominal exam: Present: normal bowel sounds, soft. Absent: distended, guarding, tenderness - Extremities Exam Extremities exam: Absent: calf tenderness, pedal edema, tenderness Additional comments: non healing 1 cm size ulcer over Left great toe planter region at 1st MTP proximal base region noticed. Pulses are palpable and diminished - Psychiatric Psychiatric exam: Present: normal affect, normal mood Internal Medicine: Result - Labs CBC & Chem 7: 12/25/16 04:46 12/25/16 04:46 Labs: Short CBC 12/25/16 Range/Units 04:46 WBC 6.7 (4.3-11.1) K/mcL Hgb 13.7 (12.9-16.9) g/dL Hct 42.0 (37.5-50.1) % Plt Count 174 (140-400) K/mcL Neutrophils # 3.4 (1.6-8.9) K/mcL BMP 12/25/16 12/25/16 04:46 04:46 Sodium 133 L Potassium 3.8 Chloride 98 Carbon Dioxide 28 BUN 16 15 Creatinine 1.04 1.06 Glucose 179 H Calcium 9.2 Liver Function 12/25/16 Range/Units 04:46 Total Bilirubin 1.2 (0.2-1.2) mg/dL AST 65 H (5-34) Units/L ALT 57 H (0-55) Units/L Alkaline Phosphatase 135 H (38-126) Units/L Albumin 3.2 L (3.5-5.0) g/dL - ABG Interpretation ABG results: PT/INR, D-dimer PT 13.0 Seconds (9.4-12.1) H 12/25/16 04:46 Consult Discharge Plan - Plan Referrals: Froylan Guido MD [Primary Care Provider] - 12/29/16 9:45 am (web request sent on 12/23/16)
[2016-12-25] MEDS: *HR* LORazepam 2 MG/ML VIAL IVP PRN (18:55)
[2016-12-26] MEDS: Vancomycin 1,250 MG in D5% in Water 250 ML IVPB SCH ×2 (00:08→12:39)
[2016-12-26] MEDS: Nicotine 21 MG PATCH.TD24 TD SCH (08:40)
[2016-12-26] MEDS: Lisinopril 20 MG TABLET PO SCH (08:41)
[2016-12-26] MEDS: Multivit/Ca/Min/Fe/FA 1 TAB TABLET PO SCH (08:41)
[2016-12-26] MEDS: Thiamine (B-1) 100 MG TABLET PO SCH (08:41)
[2016-12-26] MEDS: Beer can PO SCH ×3 (08:41→17:18)
[2016-12-26] MEDS: Pregabalin 75 MG CAPSULE PO SCH ×3 (08:41→21:56)
[2016-12-26] MEDS: Folic Acid 1 MG TABLET PO SCH (08:41)
[2016-12-26] MEDS: Loratadine 10 MG TABLET PO SCH (08:41)
[2016-12-26] MEDS: Metoprolol XL (24 HR) Succ 50 MG TAB.ER.24H PO SCH ×2 (08:41→21:58)
[2016-12-26] MEDS: hydroCHLOROthiazide 25 MG TABLET PO SCH (08:41)
[2016-12-26] MEDS: Insulin LISPRO 300 UNITS/3 ML VIAL SQ SCH ×4 (08:42→20:53)
[2016-12-26] MEDS: *HR* Heparin 5,000 UNIT/ML VIAL SQ SCH ×2 (08:42→18:01)
--- NOTE | 2016-12-26 18:12 | Internal Med Progress Note ---
Date of Encounter: 12/26/16 Time of Encounter: 18:10 - Assessment and plan (1) Cellulitis of left foot due to methicillin-resistant Staphylococcus aureus Current Visit: Yes Status: Acute Assessment and plan: So far blood cx - no growth Cont continue vancomycin IV Cont close monitoring renal function Cont local daily wound care Had indium labeled white blood cell scan done today -No signs of osteomyelitis Spoke to Dr. Taylor, planning on taking him to OR in AM (2) Osteomyelitis of toe of left foot Current Visit: Yes Status: Acute (3) Alcohol abuse Current Visit: No Status: Chronic Assessment and plan: Patient stated he drinks about 20-30 beers daily and drinks liquor occasionally Counseled about alcohol abuse CIWA protocol, IV Ativan 1 mg as needed for withdrawal symptoms Continue thiamine, folic acid, multivitamin tablet Dr. Taylor started him 1 beer with each meal Cnt librium 25mg TID PRN (4) HTN (hypertension) Current Visit: No Status: Chronic Assessment and plan: Essential hypertension, controlled, continue home meds, monitor Qualifiers: Hypertension type: essential hypertension Qualified Code(s): I10 - Essential (primary) hypertension (5) COPD (chronic obstructive pulmonary disease) Current Visit: No Status: Chronic Qualifiers: COPD type: unspecified COPD Qualified Code(s): J44.9 - Chronic obstructive pulmonary disease, unspecified (6) Tobacco abuse Current Visit: No Status: Chronic (7) DVT prophylaxis Current Visit: Yes Status: Acute - Subjective Interval history: Mr. Parish is a 46 year old male who has been admitted to [facility] after being seen in wound care clinic by . Patient has a non healing ulceration to plantar distal first metatarsal left foot. Cultures were previously obtained from wound which were positive for MRSA only sensitive to linezolid and vancomycin. Patient cannot take linezolid due to SSRI use and alcohol ingestion on daily basis and therefore pt was admitted for PICC placement, administration of vancomycin IV and evaluation for osteomyelitis. Pt denied any CP / SOB. He does drink 20 - 30 beers every day. He had his last alcohol the night before he got admitted here. His tremors / shakiness are better now. No new complaints. - Constitutional Vitals: Temp Pulse Resp BP Pulse Ox 97.7 F 57 18 124/76 97 12/26/16 12:40 12/26/16 12:40 12/26/16 12:40 12/26/16 12:40 12/26/16 12:40 General appearance: Present: A&O X 3, morbidly obese, pleasant, no acute distress, answers questions appropriately - Head Head exam: Present: atraumatic, normal inspection - Respiratory Respiratory exam: Present: CTAB. Absent: accessory muscle use, rales, rhonchi, wheezes - Cardiovascular Cardiovascular exam: Present: RRR, +S1, +S2. Absent: diastolic murmur, gallop, rubs, systolic murmur - GI/Abdominal GI/Abdominal exam: Present: normal bowel sounds, soft, no peritoneal signs. Absent: distended, tenderness - Extremities Exam Extremities exam: Absent: calf tenderness, pedal edema, tenderness - Psychiatric Psychiatric exam: Present: normal affect, normal mood Internal Medicine: Result - Labs CBC & Chem 7: 12/25/16 04:46 12/25/16 04:46 - ABG Interpretation ABG results: PT/INR, D-dimer PT 13.0 Seconds (9.4-12.1) H 12/25/16 04:46 - Impressions Impressions Bone Marrow Scan Nuclear Medicine 12/25/16 06:00 IMPRESSION: No abnormal white blood cell accumulation to localize active infection. D/ / Bernardo Valle MD / Bernardo Valle MD Interpreting Provider: Bernardo Valle MD Indium Scan Nuclear Medicine 12/25/16 06:00 IMPRESSION: No abnormal white blood cell accumulation to localize active infection. D/ / Bernardo Valle MD / Bernardo Valle MD Interpreting Provider: Bernardo Valle MD Consult Discharge Plan - Plan Referrals: Froylan Guido MD [Primary Care Provider] - 12/29/16 9:45 am (web request sent on 12/23/16)
[2016-12-26] MEDS: *HR* LORazepam 2 MG/ML VIAL IVP PRN (21:55)
[2016-12-27] MEDS: Vancomycin 1,250 MG in D5% in Water 250 ML IVPB SCH ×2 (00:52→11:51)
[2016-12-27] MEDS: *HR* Heparin 5,000 UNIT/ML VIAL SQ SCH ×2 (06:12→17:42)
[2016-12-27] MEDS: Beer can PO SCH ×3 (09:21→17:42)
[2016-12-27] MEDS: hydroCHLOROthiazide 25 MG TABLET PO SCH (09:22)
[2016-12-27] MEDS: Insulin LISPRO 300 UNITS/3 ML VIAL SQ SCH ×4 (09:22→21:13)
[2016-12-27] MEDS: Folic Acid 1 MG TABLET PO SCH (09:22)
[2016-12-27] MEDS: Pregabalin 75 MG CAPSULE PO SCH ×3 (09:23→21:06)
[2016-12-27] MEDS: Loratadine 10 MG TABLET PO SCH (09:23)
[2016-12-27] MEDS: Lisinopril 20 MG TABLET PO SCH (09:23)
[2016-12-27] MEDS: Metoprolol XL (24 HR) Succ 50 MG TAB.ER.24H PO SCH ×2 (09:23→21:06)
[2016-12-27] MEDS: Multivit/Ca/Min/Fe/FA 1 TAB TABLET PO SCH (09:23)
[2016-12-27] MEDS: Thiamine (B-1) 100 MG TABLET PO SCH (09:23)
[2016-12-27] MEDS: Nicotine 21 MG PATCH.TD24 TD SCH (09:23)
--- NOTE | 2016-12-27 10:39 | Podiatry Progress Note ---
Date of Encounter: 12/27/16 Time of Encounter: 10:35 - Assessment and Plan (1) Cellulitis of left foot due to methicillin-resistant Staphylococcus aureus Current Visit: Yes Status: Acute Assessment: #1 MRSA cellulitis associated with diabetic foot ulcer left #2 we will review 3-phase bone scan. No definitive diagnosis at this time because of the altered biomechanics due to previous surgical intervention. If the 3-phase bone scan were completely negative we would no longer need an indium labeled cell scan but due to the positive nature of these 3-phase scan will need to proceed with the indium labeled cell scan to determine if our index of suspicion of osteomyelitis is proven #3 history of diabetes with neuropathy and multiple comorbidities as outlined in history Plan: #1 continue vancomycin monitor kidney function #2 daily wound care #3 pending indium labeled white blood cell scan for Sunday, #4 showed blood cultures be negative then we can proceed with use of PICC line and IV antibiotics outpatient/vancomycin Dictation for 12/25/2016 Assessment: #1 3-phase bone scan positive but nonspecific x-rays are equivocal for osteomyelitis no obvious erosion or changes #2 white blood cell scan/indium label scan performed today results pending. Results of scan, will help determine course of action either amputation of toe or debridement with placement of skin graft. #3 continue IV vancomycin for obvious MRSA infection Dictation for 12/27/2016 Assessment: #1 indium labeled white blood cell scan negative for overt osteomyelitis of the left foot/great toe #2 we will proceed with debridement with application of graft jacket and capsulotomy tenotomy #3 continue vancomycin plan on 2 week post discharge course of vancomycin Plan: #1 surgical intervention tomorrow 12/28/2016 sedation local anesthetic #2 arrangements for 2 week course of post discharge antibiotics #3 discussed the risks versus benefits as well as alternatives to surgical intervention. Risks include but are not limited to loss of toe toes footling or life. DVT blood clots. He for further surgery. Failure procedure produce desired results. All questions are answered to his satisfaction. (2) Toe ulcer Current Visit: No Status: Acute Qualifiers: Laterality: left Non-pressure ulcer stage: limited to breakdown of skin Qualified Code(s): L97.521 - Non-pressure chronic ulcer of other part of left foot limited to breakdown of skin Subjective Principal diagnosis: MRSA cellulitis left foot, with diabetic foot ulcer Interval history: Patient in good spirits. Alert oriented calm. Patient without fever or chills nausea vomiting. No overt symptoms of alcohol withdrawal. No chest pain shortness of breath. Objective - Vital Signs Vital Signs: Vital Signs Temp Pulse Resp BP Pulse Ox 12/27/16 04:38 97.5 F L 61 17 94/53 98 12/26/16 19:35 98 F 66 16 106/60 96 12/26/16 12:40 97.7 F 57 18 124/76 97 Intake and Output 12/26/16 12/27/16 12/27/16 23:59 07:59 15:59 Intake Total 490 / 490 250 / 250 0 / 0 Output Total 0 / 0 Balance 490 / 490 250 / 250 0 / 0 Intake: IV Fluids 250 / 250 250 / 250 Vancocin 1,250 MG In 250 / 250 250 / 250 Dextrose 5% 250 ML @ 166. 67 mls/hr IVPB Q12H [facility] Rx#:[id number] Oral 240 / 240 0 / 0 Output: Urine 0 / 0 Other: Meal npo Percent of Meal Consumed 0% Weight 135.312 kg Blood Glucose* 184 215 Patient Weight 12/27/16 23:59 Weight 135.312 kg - Exam Exam: Continuing resolution of edema and erythema. Indium labeled white blood cell scan negative for overt ostial myelitis of the left great toe Incision: Present: healing, inflamed, clean and dry - Lab Result Diagrams: 12/25/16 04:46 12/25/16 04:46 Labs: Abnormal lab results ESR 49 mm/hr (0-10) H 12/21/16 17:11 PT 13.0 Seconds (9.4-12.1) H 12/25/16 04:46 Sodium 133 mEq/L (136-145) L 12/25/16 04:46 Glucose 179 mg/dL (70-99) H 12/25/16 04:46 POC Glucose 184 (58-89) H 12/26/16 20:40 AST 65 Units/L (5-34) H 12/25/16 04:46 ALT 57 Units/L (0-55) H 12/25/16 04:46 Alkaline Phosphatase 135 Units/L (38-126) H 12/25/16 04:46 C-Reactive Protein 15 mg/L (Less than 5) H 12/21/16 17:09 Albumin 3.2 g/dL (3.5-5.0) L 12/25/16 04:46 Globulin 4.0 g/dL (2.4-3.5) H 12/25/16 04:46 Albumin/Globulin Ratio 0.8 (1.1-2.2) L 12/25/16 04:46 Triglycerides 222 mg/dL (< 150) H 12/22/16 05:25 VLDL Cholesterol, Calc 44 mg/dL (< 31) H 12/22/16 05:25 HDL Cholesterol 35 mg/dL (40-59) L 12/22/16 05:25 Microbiology, Last 48 Hours 12/21/16 19:22 Blood Culture - Final Peripheral Venipuncture No growth. 12/21/16 19:22 Blood Culture - Final Peripheral Venipuncture No growth. Consult Discharge Plan - Plan Referrals: Froylan Guido MD [Primary Care Provider] - 12/29/16 9:45 am (web request sent on 12/23/16)
--- NOTE | 2016-12-27 11:47 | Internal Med Progress Note ---
Date of Encounter: 12/27/16 Time of Encounter: 11:10 - Assessment and plan (1) Cellulitis of left foot due to methicillin-resistant Staphylococcus aureus Current Visit: Yes Status: Acute Assessment and plan: So far blood cx - no growth Cont vancomycin IV Cont close monitoring renal function Cont local daily wound care Indium labeled white blood cell scan -No signs of osteomyelitis Spoke to Dr. Taylor, planning on taking him to OR in AM ( ) Need 2 more weeks of IV Vancomycin due to his soft tissue infection unable to use Linezolid due to his heavy alcoholic dependence Already had PICC line placed Pharmacy will coordinate with infusion clinic for vanco dosing and frequent renal function check up Will sign off on his care since he is medically stable. Please call us if you need any assistance for discharge planning (2) Osteomyelitis of toe of left foot Current Visit: Yes Status: Acute (3) Alcohol abuse Current Visit: No Status: Chronic Assessment and plan: Patient stated he drinks about 20-30 beers daily and drinks liquor occasionally Counseled about alcohol abuse CIWA protocol, IV Ativan 1 mg as needed for withdrawal symptoms Continue thiamine, folic acid, multivitamin tablet Dr. Taylor started him 1 beer with each meal Cnt librium 25mg TID PRN (4) HTN (hypertension) Current Visit: No Status: Chronic Assessment and plan: Essential hypertension, controlled, continue home meds, monitor Qualifiers: Hypertension type: essential hypertension Qualified Code(s): I10 - Essential (primary) hypertension (5) COPD (chronic obstructive pulmonary disease) Current Visit: No Status: Chronic Assessment and plan: Stable, not in exacerbation - DuoNeb breathing treatment as needed for shortness of breath or wheezing Qualifiers: COPD type: unspecified COPD Qualified Code(s): J44.9 - Chronic obstructive pulmonary disease, unspecified (6) Tobacco abuse Current Visit: No Status: Chronic Assessment and plan: Patient smokes about half a pack of cigarettes daily and has smoked for greater than 20 years Smoking cessation counseling, nicotine patch (7) DVT prophylaxis Current Visit: Yes Status: Acute Assessment and plan: Continue heparin subcutaneous - Subjective Interval history: Mr. Parish is a 46 year old male who has been admitted to [facility] after being seen in wound care clinic by . Patient has a non healing ulceration to plantar distal first metatarsal left foot. Cultures were previously obtained from wound which were positive for MRSA only sensitive to linezolid and vancomycin. Patient cannot take linezolid due to SSRI use and alcohol ingestion on daily basis and therefore pt was admitted for PICC placement, administration of vancomycin IV and evaluation for osteomyelitis. Pt denied any CP / SOB. He does drink 20 - 30 beers every day. He had his last alcohol the night before he got admitted here. His tremors / shakiness are better now. No new complaints. - Constitutional Vitals: Temp Pulse Resp BP Pulse Ox 97.7 F 66 16 115/66 96 12/27/16 11:10 12/27/16 11:10 12/27/16 11:10 12/27/16 11:10 12/27/16 11:10 General appearance: Present: A&O X 3, morbidly obese, pleasant, no acute distress, answers questions appropriately - Head Head exam: Present: atraumatic, normal inspection - Respiratory Respiratory exam: Present: decreased breath sounds, respiratory distress. Absent: rhonchi, wheezes - Cardiovascular Cardiovascular exam: Present: RRR, +S1, +S2. Absent: diastolic murmur, gallop, rubs, systolic murmur - GI/Abdominal GI/Abdominal exam: Present: normal bowel sounds, soft, no peritoneal signs. Absent: distended, tenderness - Extremities Exam Extremities exam: Absent: calf tenderness, pedal edema, tenderness Additional comments: nonhealing ulcer over Left great toe plantar region - Psychiatric Psychiatric exam: Present: normal affect, normal mood Internal Medicine: Result - Labs CBC & Chem 7: 12/25/16 04:46 12/25/16 04:46 - ABG Interpretation ABG results: PT/INR, D-dimer PT 13.0 Seconds (9.4-12.1) H 12/25/16 04:46 - Impressions Impressions Bone Marrow Scan Nuclear Medicine 12/25/16 06:00 IMPRESSION: No abnormal white blood cell accumulation to localize active infection. D/ / Bernardo Valle MD / Bernardo Valle MD Interpreting Provider: Bernardo Valle MD Indium Scan Nuclear Medicine 12/25/16 06:00 IMPRESSION: No abnormal white blood cell accumulation to localize active infection. D/ / Bernardo Valle MD / Bernardo Valle MD Interpreting Provider: Bernardo Valle MD Consult Discharge Plan - Plan Referrals: Froylan Guido MD [Primary Care Provider] - 12/29/16 9:45 am (web request sent on 12/23/16)
[2016-12-27] MEDS: *HR* LORazepam 2 MG/ML VIAL IVP PRN (21:08)
[2016-12-28] MEDS: Vancomycin 1,250 MG in D5% in Water 250 ML IVPB SCH ×2 (01:01→13:54)
[2016-12-28] MEDS: *HR* Heparin 5,000 UNIT/ML VIAL SQ SCH ×2 (06:27→18:07)
[2016-12-28] MEDS: Pregabalin 75 MG CAPSULE PO SCH ×2 (08:34→14:07)
[2016-12-28] MEDS: Thiamine (B-1) 100 MG TABLET PO SCH (08:34)
[2016-12-28] MEDS: Metoprolol XL (24 HR) Succ 50 MG TAB.ER.24H PO SCH (08:34)
[2016-12-28] MEDS: Lisinopril 20 MG TABLET PO SCH (08:34)
[2016-12-28] MEDS: Loratadine 10 MG TABLET PO SCH (08:35)
[2016-12-28] MEDS: hydroCHLOROthiazide 25 MG TABLET PO SCH (08:35)
[2016-12-28] MEDS: Nicotine 21 MG PATCH.TD24 TD SCH (08:35)
[2016-12-28] MEDS: Multivit/Ca/Min/Fe/FA 1 TAB TABLET PO SCH (08:35)
[2016-12-28] MEDS: Insulin LISPRO 300 UNITS/3 ML VIAL SQ SCH ×3 (08:36→17:21)
[2016-12-28] MEDS: Beer can PO SCH ×3 (11:18→22:39)
[2016-12-28] MEDS: Folic Acid 1 MG TABLET PO SCH (11:19)
[2016-12-28] MEDS: *HR* LORazepam 2 MG/ML VIAL IVP PRN (14:08)
--- NOTE | 2016-12-28 18:24 | Anesthesia Evaluation PreOp ---
Date of Encounter: 12/28/16 Time of Encounter: 18:51 - Past History Planned Operation: Left toe I&D #1, pos amputation Cardiac History: HTN, Hyperlipidemia Pulmonary History: Smoker, COPD [employer] History: Denies Any Significant HX Other Medical History: Diabetes Type II, GERD, Other (BMI 43) Anesthesia History: No Prior Anesthetic Complications Alcohol Use: occasionally Drug use: none, cocaine (History of cocaine use about 20 years ago) Medications and Allergies Albuterol Sulfate [Albuterol Inhaler] 2 puff IH Q4HR PRN 04/06/16 [History] Citalopram Hydrobromide [Celexa] 40 mg PO DAILY 04/06/16 [History] Metformin HCl [Glucophage] 1,000 mg PO BID 04/06/16 [History] Metoprolol Succinate 100 mg PO BID 04/06/16 [History] Multivitamin [Multi-Day Vitamins] 1 tab PO DAILY 04/06/16 [History] Grubbs-3/Dha/Epa/Fish Oil [Fish Oil 1,000 mg Softgel] 2 cap PO BID 04/06/16 [ History] Omeprazole [PriLOSEC] 40 mg PO DAILY 04/06/16 [History] Quinapril HCl [Accupril] 40 mg PO DAILY 04/06/16 [History] glipiZIDE [Glipizide] 10 mg PO BID 04/06/16 [History] hydroCHLOROthiazide [Hydrochlorothiazide] 25 mg PO DAILY 04/06/16 [History] Meloxicam 15 mg PO DAILY 06/01/16 [History] Ibuprofen [Motrin] 600 mg PO BID PRN 12/21/16 [History] Ipratropium/Albuterol Neb [Duoneb] 3 ml IH Q6H PRN 12/21/16 [History] Loratadine [Claritin] 10 mg PO DAILY 12/21/16 [History] Pregabalin [Lyrica] 150 mg PO TID 12/21/16 [History] Allergies hydrocodone [From Vicodin] Adverse Reaction (Severe, Verified 04/06/16 11:59) Nausea cephalexin [From Keflex] Adverse Reaction (Verified 04/21/16 11:26) Vomiting codeine Adverse Reaction (Verified 04/21/16 11:26) Confusion morphine Adverse Reaction (Verified 04/06/16 11:59) Rash - Meds/Allergy Pre-op Review Medications Reviewed: Yes Allergies Reviewed: Yes Beta Blockers on Current Med List: Yes If Beta Blockers taken, Date/Time (Last Dose taken): 12-28-16 metoprolol 8:34 Anesthesia Results - Labs 12/25/16 04:46 12/25/16 04:46 - Imaging EKG: report reviewed, image reviewed (SR) Anesthesia Exam Last Vital Signs Temp 97.6 F 12/28/16 16:55 Pulse 61 12/28/16 16:55 Resp 16 12/28/16 16:55 BP 111/67 12/28/16 16:55 Pulse Ox 94 12/28/16 16:55 Weight: 137 kg - HEENT Mallampati: III Teeth: Poor dentition - [employer] LOC: Oriented - Cardiac Rhythm: Regular Murmur: None - Pulmonary Breath Sounds: bilateral Clear Respiratory Effort: Symmetrical Anesthesia Assess/Plan ASA Score: 3 Modified Toya Scale for Level of Consciousness: Cooperative, oriented, and tranquil Anesthetic Plan: MAC Monitoring Plan: Standard Monitors Recovery Plan: PACU
[2016-12-28] MEDS ORDERED: *HR* FentaNYL (PF) 100 MCG/2 ML VIAL ONE ×2 (19:14→19:55)
[2016-12-28] MEDS ORDERED: Propofol 500 MG/50 ML INFUS..BTL ONE (19:14)
[2016-12-28] MEDS ORDERED: Famotidine 20 MG/2 ML VIAL ONE (19:18)
[2016-12-28] MEDS ORDERED: Bupivacaine/Clonidine Syringe 1 EACH SYRINGE ONE (19:22)
--- NOTE | 2016-12-28 20:53 | Orthopedic Operative Note ---
Date of procedure: 12/28/16 Pre-op diagnosis: #1 extension, deformity of toe #1 left.#2 foot ulcer plantar # 1 metatarsal Post-op diagnosis: same Procedure: 12/28/16 20:48 #1 revision capsulotomy and tenotomy MTPJ 1 left #2 surgical wound bed preparation #3 application of graft jacket Implants: None Complications: None Anesthesia: MAC, local Local Anesthetics: 0.25% Sensorcaine HCL SubQ (cc) Surgeon: Sanford Taylor Estimated blood loss (cc): 5 Tourniquet Time (Minutes): 0 Specimen: None Condition: stable Disposition: floor Procedure in Detail: 12/28/16 20:49 Details in summary of procedure: Patient brought to the surgical suite. A sign in procedure was performed. Patient was then transferred to the surgical table and placed properly safely securely with elevating the left foot on a foam block. No tourniquet was used. The left foot was then prepped with alcohol at the base of the first metatarsal. Anesthetic timeout was taken. Modified Dunn block was then carried out without difficulty or complication using local anesthetic. Left foot was then prepped and draped in usual sterile manner using Hibiclens. Surgical timeout was taken. A lazy S incision was placed over the dorsal aspect of left great toe and brought proximally along the course of the EHL tendon and obliquely at the distal aspect of the first metatarsal. Sharp dissection was continued down to the deep fascia. The capsule was of the first metatarsal joint joint was then released dorsally medially and laterally. EHL tendon was then identified and transected with a tenectomy being performed. Release of the extensor deformity was achieved. The wound was flushed with copious amounts sterile saline. Skin was then repaired with interrupted sutures of 3-0 Prolene. Attention was then turned to the plantar aspect of the first distal metatarsal where a OpSite was placed prior to making the dorsal incision the OpSite was removed the ulceration was then prepped with Hibiclens and water again and rinsed with saline. That juncture of the wound bed was prepared using an ultrasonic [employer] debrider pickup and scissors to remove all devitalized tissue leaving a 95% granular wound bed. A graft jacket was prepared properly rehydrated using warm saline and then PRP. Was then applied accordingly to the wound and sutured in place using 3-0 running lock suture of chromic. Satisfied we had corrected the deformity as well as prepared the surgical wound bed and application of the graft appropriately the wounds were dressed with multiple layers of Adaptic 4 x 4's Kerlix and Medipore tape and a stockinette. Patient tolerated the procedure well estimated blood loss less than 5 mL complications none patient was then transported to the holding room and onto the floor in good condition with vital signs stable
--- NOTE | 2016-12-28 20:54 | Anesthesia Evaluation Post Op ---
Date of Encounter: 12/28/16 Time of Encounter: 20:50 - Vital Signs Vital Signs: Vital Signs/O2 Sat/Glucose, Most Current Temp Pulse Resp BP Pulse Ox 12/28/16 16:55 97.6 F 61 16 111/67 94 - Lungs Lungs: Clear Ascult./Percussion - Airway Airway: Non-obstructed - Cardiovascular Regular Rate - Mental Status Mental Status: Alert & Oriented, Answers Appropriately - Pain Pain Scale: 0 - Nausea Vomiting Nausea Vomiting: Not Present - Hydration Hydration: NPO - Discharge PostOp Status: Transfer Patient to floor
[2016-12-28] MEDS ORDERED: Ipratropium/Albuterol Neb 3 ML IH PRN (21:02)
[2016-12-28] MEDS ORDERED: *HR* LORazepam 2 MG/ML VIAL IVP PRN (21:02)
[2016-12-28] MEDS ORDERED: Naloxone 0.4 MG/ML INJ IVP PRN (21:02)
[2016-12-28] MEDS ORDERED: *HR* Dextrose 50 % in Water (Syg) 50 ML SYRINGE IVP PRN (21:02)
[2016-12-28] MEDS ORDERED: D5% in Water 1,000 ML IVC PRN (21:02)
[2016-12-28] MEDS ORDERED: Dextrose Gel 15 GM PO PRN ×2 (21:02)
[2016-12-28] MEDS ORDERED: Beer can PO ONE (21:28)
[2016-12-28] MEDS: *HR* OxyCODONE/APAP 5/325 TABLET PO PRN (22:39)
[2016-12-29] MEDS ORDERED: *HR* LORazepam 2 MG/ML VIAL IVP PRN (00:39)
[2016-12-29] MEDS: Vancomycin 1,250 MG in D5% in Water 250 ML IVPB SCH ×2 (01:31→11:22)
[2016-12-29] MEDS ORDERED: *HR* Heparin 5,000 UNIT/ML VIAL SQ SCH (06:00)
[2016-12-29] MEDS: Beer can PO SCH ×2 (08:26→11:23)
[2016-12-29] MEDS: Insulin LISPRO 300 UNITS/3 ML VIAL SQ SCH ×2 (08:30→12:13)
[2016-12-29] MEDS: *HR* OxyCODONE/APAP 5/325 TABLET PO PRN ×2 (08:36→13:48)
--- NOTE | 2016-12-29 08:37 | Physician Discharge Referral ---
Home Health/Hosp Referral Info Attending Provider: Claudia Provider in Charge Post Discharge: PCP (Dr. Taylor) - Diagnosis (1) Cellulitis of left foot due to methicillin-resistant Staphylococcus aureus Priority: Primary Status: Acute (2) Toe ulcer Status: Acute - Respiratory Orders Smoking Cessation: Smoking cessation has been advised. For more information, call the [employer] Tobacco Quit Line at 4-396-NEKL-NOW. - Dressing/Wound Care Site: Left foot Type of Dressing/Treatments w/Frequency: Apply thin layer of Gentamician ointment on Adaptic over wound plantar 1st metatarsal left foot and then 4x4 and kerlix daily - Diet/Nutrition Diet/Nutrition Orders: No Concentrated Sweets - Activity Activity Orders: Ambulate (In diabetic boot only) - Services Needed Following services are medically necessary services: Nursing, Home Infusion Other Treatments: To wear diabetic cast boot at all times. - Transfer Medications Prescriptions: Vancomycin/0.9 % Sod Chloride [Vanco 1.25 gm/250 ml-0.9% NaCl] 1.25 gm IV Q12HR #30 plast..bag Home Medications: Albuterol Sulfate [Albuterol Inhaler] 2 puff IH Q4HR PRN 04/06/16 [History] Citalopram Hydrobromide [Celexa] 40 mg PO DAILY 04/06/16 [History] Metformin HCl [Glucophage] 1,000 mg PO BID 04/06/16 [History] Metoprolol Succinate 100 mg PO BID 04/06/16 [History] Multivitamin [Multi-Day Vitamins] 1 tab PO DAILY 04/06/16 [History] [place]-3/Dha/Epa/Fish Oil [Fish Oil 1,000 mg Softgel] 2 cap PO BID 04/06/16 [ History] Omeprazole [PriLOSEC] 40 mg PO DAILY 04/06/16 [History] Quinapril HCl [Accupril] 40 mg PO DAILY 04/06/16 [History] glipiZIDE [Glipizide] 10 mg PO BID 04/06/16 [History] hydroCHLOROthiazide [Hydrochlorothiazide] 25 mg PO DAILY 04/06/16 [History] Meloxicam 15 mg PO DAILY 06/01/16 [History] Ibuprofen [Motrin] 600 mg PO BID PRN 12/21/16 [History] Ipratropium/Albuterol Neb [Duoneb] 3 ml IH Q6H PRN 12/21/16 [History] Loratadine [Claritin] 10 mg PO DAILY 12/21/16 [History] Pregabalin [Lyrica] 150 mg PO TID 12/21/16 [History] Vancomycin/0.9 % Sod Chloride [Vanco 1.25 gm/250 ml-0.9% NaCl] 1.25 gm IV Q12HR #30 plast..bag 12/29/16 [Rx] Allergies/Adverse Reactions: Allergies hydrocodone [From Vicodin] Adverse Reaction (Severe, Verified 04/06/16 11:59) Nausea cephalexin [From Keflex] Adverse Reaction (Verified 04/21/16 11:26) Vomiting codeine Adverse Reaction (Verified 04/21/16 11:26) Confusion morphine Adverse Reaction (Verified 04/06/16 11:59) Rash Certification: Further, I certify that my clinical findings support that this patient is homebound (i.e. absences from home require considerable and taxing effort and are for medical reasons or sikh services or infrequently or short duration when for other reasons) because: Homebound Reason: Patient requires assistance of a person or device to safely leave home Attestation: My signature below is to certify that this patient is under my care and that I, or nurse practitioner, or a physician's equal opportunity assistant working with me, has a face-to -face encounter with this patient.
[2016-12-29] MEDS ORDERED: Nicotine 21 MG PATCH.TD24 TD SCH (09:00)
[2016-12-29] MEDS ORDERED: hydroCHLOROthiazide 25 MG TABLET PO SCH (09:00)
[2016-12-29] MEDS ORDERED: Multivit/Ca/Min/Fe/FA 1 TAB TABLET PO SCH (09:00)
[2016-12-29] MEDS ORDERED: Thiamine (B-1) 100 MG TABLET PO SCH (09:00)
[2016-12-29] MEDS ORDERED: Metoprolol XL (24 HR) Succ 50 MG TAB.ER.24H PO SCH (09:00)
[2016-12-29] MEDS ORDERED: Folic Acid 1 MG TABLET PO SCH (09:00)
[2016-12-29] MEDS ORDERED: Loratadine 10 MG TABLET PO SCH (09:00)
[2016-12-29] MEDS ORDERED: Pregabalin 75 MG CAPSULE PO SCH (09:00)
[2016-12-29] MEDS ORDERED: Lisinopril 20 MG TABLET PO SCH (09:00)
[2016-12-29 12:06] VITALS: BP 133/73
--- NOTE | 2016-12-29 12:50 | Discharge Summary ---
Date of Encounter: 12/29/16 Time of Encounter: 12:48 - Discharge Diagnosis (1) Cellulitis of left foot due to methicillin-resistant Staphylococcus aureus Priority: Primary Status: Acute (2) Toe ulcer Priority: Primary Status: Acute Qualifiers: Laterality: left Non-pressure ulcer stage: limited to breakdown of skin Qualified Code(s): L97.521 - Non-pressure chronic ulcer of other part of left foot limited to breakdown of skin - Discharge Medications Prescriptions: Vancomycin/0.9 % Sod Chloride [Vanco 1.25 gm/250 ml-0.9% NaCl] 1.25 gm IV Q12HR #30 plast..bag Home Medications: Albuterol Sulfate [Albuterol Inhaler] 2 puff IH Q4HR PRN 04/06/16 [History] Citalopram Hydrobromide [Celexa] 40 mg PO DAILY 04/06/16 [History] Metformin HCl [Glucophage] 1,000 mg PO BID 04/06/16 [History] Metoprolol Succinate 100 mg PO BID 04/06/16 [History] Multivitamin [Multi-Day Vitamins] 1 tab PO DAILY 04/06/16 [History] [place]-3/Dha/Epa/Fish Oil [Fish Oil 1,000 mg Softgel] 2 cap PO BID 04/06/16 [ History] Omeprazole [PriLOSEC] 40 mg PO DAILY 04/06/16 [History] Quinapril HCl [Accupril] 40 mg PO DAILY 04/06/16 [History] glipiZIDE [Glipizide] 10 mg PO BID 04/06/16 [History] hydroCHLOROthiazide [Hydrochlorothiazide] 25 mg PO DAILY 04/06/16 [History] Meloxicam 15 mg PO DAILY 06/01/16 [History] Ibuprofen [Motrin] 600 mg PO BID PRN 12/21/16 [History] Ipratropium/Albuterol Neb [Duoneb] 3 ml IH Q6H PRN 12/21/16 [History] Loratadine [Claritin] 10 mg PO DAILY 12/21/16 [History] Pregabalin [Lyrica] 150 mg PO TID 12/21/16 [History] Vancomycin/0.9 % Sod Chloride [Vanco 1.25 gm/250 ml-0.9% NaCl] 1.25 gm IV Q12HR #30 plast..bag 12/29/16 [Rx] Allergies/Adverse Reactions: Allergies hydrocodone [From Vicodin] Adverse Reaction (Severe, Verified 04/06/16 11:59) Nausea cephalexin [From Keflex] Adverse Reaction (Verified 04/21/16 11:26) Vomiting codeine Adverse Reaction (Verified 04/21/16 11:26) Confusion morphine Adverse Reaction (Verified 04/06/16 11:59) Rash Procedures and tests throughout hospitalization: #1 3-phase bone scan #2 indium labeled white blood cell scan #3 surgical intervention debridement of wound and application of graft, PICC line placement with vancomycin pharmacy dosed Labs on day of discharge: Labs from last 24 hours 12/28/16 12/28/16 12/28/16 21:32 16:56 12:11 POC Glucose 152 H 180 H 191 H 12/28/16 12/27/16 07:41 21:00 POC Glucose 209 H 236 H - Impressions ITS Impressions Bone Scan Nuclear Medicine 12/21/16 17:04 IMPRESSION: Findings concerning for osteomyelitis in the remnant proximal phalanx of the left great toe and possibly in the left distal 1st metatarsal. D/ / 12/22/2016 11:42:50 Joe Seals MD / kitty Interpreting Provider: Joe Seals MD Foot X-Ray 12/21/16 17:04 IMPRESSION: Soft tissue ulceration along the plantar aspect of the forefoot likely at the level of the 1st digit. 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 Lucency in the 1st proximal phalanx increased in prominence. This may represent erosion from osteomyelitis. D/ / Delvis Mcclendon MD / Delvis Mcclendon MD Interpreting Provider: Delvis Mcclendon MD Bone Marrow Scan Nuclear Medicine 12/25/16 06:00 IMPRESSION: No abnormal white blood cell accumulation to localize active infection. D/ / Bernardo Valle MD / Bernardo Valle MD Interpreting Provider: Bernardo Valle MD Indium Scan Nuclear Medicine 12/25/16 06:00 IMPRESSION: No abnormal white blood cell accumulation to localize active infection. D/ / Bernardo Valle MD / Bernardo Valle MD Interpreting Provider: Bernardo Valle MD Date of admission: 12/21/16 17:44 Primary care physician: Froylan Guido MD Consults: 12/21/16 16:58 Consult to Hospitalist [CONS] Routine Consulting Provider: Hospitalcinda Dutton Reason for Consult: Medical management of patient for comorbid conditions and medications Call Completed: Yes 12/21/16 17:00 Consult to Invasive Line Access Team [CONS] Routine Reason for Consult: Patient will need meterman vancomycin therapy Line Type: PICC PICC line indications: continuous churn buttermaker Med/Antibiotic 12/21/16 19:03 Consult to [place] Compounder [CONS] Routine Reason for SW Consult: Alcohol withdrawl 12/25/16 12:14 Consult to Invasive Line Access Team [CONS] Routine Reason for Consult: Picc Line Insertion Line Type: PICC Discharging clinician: Sanford Taylor Anticipated date of discharge: 12/29/16 - Patient Status Disposition: Home Health Service Condition: Good Functional capacity at discharge: uses cane/walker (Patient to wear cast boot/ diabetic boot use of crutches to offload) Overall status at discharge: patient is progressing back to baseline - Discharge Instructions Instructions: Cellulitis (DC) Follow Up With: Froylan Guido MD [Primary Care Provider] - 01/04/17 1:15 pm () Sanford Taylor DPM [Partnered Physician] - Additional Instructions: #1 Follow-up Dr. Taylor wound care clinic this January 03. Call [phone] for appointment time. #2 please draw CBC ESR and creatinine weekly - Diet and Activity Activity: other (Must use diabetic boot to ambulate with crutches) - Hospital Course Hospital course: Mr. Parish is a 46 year old male, culture positive for MRSA left foot ulceration. Patient underwent radiographic imaging to determine whether or not he had osteomyelitis. Indium white blood cell scan negative for ostial. Plain films consistent with no obvious evidence of erosion brought to myelitis of the great toe. Patient continued to slowly improve cellulitis resolving. He went to the operating room and underwent debridement of wound and application of graft and capsulotomy to correct extensor deformity of left great toe. - Time Spent with Patient Total time spent providing and/or coordinating discharge services: Greater than 30 minutes
--- NOTE | 2016-12-29 13:28 | Discharge Summary ---
Date of Encounter: 12/29/16 Time of Encounter: 13:28 - Discharge Diagnosis (1) Cellulitis of left foot due to methicillin-resistant Staphylococcus aureus Priority: Primary Status: Acute (2) Toe ulcer Priority: Primary Status: Acute Qualifiers: Laterality: left Non-pressure ulcer stage: limited to breakdown of skin Qualified Code(s): L97.521 - Non-pressure chronic ulcer of other part of left foot limited to breakdown of skin - Discharge Medications Prescriptions: Vancomycin/0.9 % Sod Chloride [Vanco 1.25 gm/250 ml-0.9% NaCl] 1.25 gm IV Q12HR #30 plast..bag Home Medications: Albuterol Sulfate [Albuterol Inhaler] 2 puff IH Q4HR PRN 04/06/16 [History] Citalopram Hydrobromide [Celexa] 40 mg PO DAILY 04/06/16 [History] Metformin HCl [Glucophage] 1,000 mg PO BID 04/06/16 [History] Metoprolol Succinate 100 mg PO BID 04/06/16 [History] Multivitamin [Multi-Day Vitamins] 1 tab PO DAILY 04/06/16 [History] [place]-3/Dha/Epa/Fish Oil [Fish Oil 1,000 mg Softgel] 2 cap PO BID 04/06/16 [ History] Omeprazole [PriLOSEC] 40 mg PO DAILY 04/06/16 [History] Quinapril HCl [Accupril] 40 mg PO DAILY 04/06/16 [History] glipiZIDE [Glipizide] 10 mg PO BID 04/06/16 [History] hydroCHLOROthiazide [Hydrochlorothiazide] 25 mg PO DAILY 04/06/16 [History] Meloxicam 15 mg PO DAILY 06/01/16 [History] Ibuprofen [Motrin] 600 mg PO BID PRN 12/21/16 [History] Ipratropium/Albuterol Neb [Duoneb] 3 ml IH Q6H PRN 12/21/16 [History] Loratadine [Claritin] 10 mg PO DAILY 12/21/16 [History] Pregabalin [Lyrica] 150 mg PO TID 12/21/16 [History] Vancomycin/0.9 % Sod Chloride [Vanco 1.25 gm/250 ml-0.9% NaCl] 1.25 gm IV Q12HR #30 plast..bag 12/29/16 [Rx] Allergies/Adverse Reactions: Allergies hydrocodone [From Vicodin] Adverse Reaction (Severe, Verified 04/06/16 11:59) Nausea cephalexin [From Keflex] Adverse Reaction (Verified 04/21/16 11:26) Vomiting codeine Adverse Reaction (Verified 04/21/16 11:26) Confusion morphine Adverse Reaction (Verified 04/06/16 11:59) Rash Labs on day of discharge: Labs from last 24 hours 12/28/16 12/28/16 12/28/16 21:32 16:56 12:11 POC Glucose 152 H 180 H 191 H 12/28/16 12/27/16 07:41 21:00 POC Glucose 209 H 236 H - Impressions ITS Impressions Bone Scan Nuclear Medicine 12/21/16 17:04 IMPRESSION: Findings concerning for osteomyelitis in the remnant proximal phalanx of the left great toe and possibly in the left distal 1st metatarsal. D/ / 12/22/2016 11:42:50 Joe Seals MD / kitty Interpreting Provider: Joe Seals MD Foot X-Ray 12/21/16 17:04 IMPRESSION: Soft tissue ulceration along the plantar aspect of the forefoot likely at the level of the 1st digit. 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 Lucency in the 1st proximal phalanx increased in prominence. This may represent erosion from osteomyelitis. D/ / Delvis Mcclendon MD / Delvis Mcclendon MD Interpreting Provider: Delvis Mcclendon MD Bone Marrow Scan Nuclear Medicine 12/25/16 06:00 IMPRESSION: No abnormal white blood cell accumulation to localize active infection. D/ / Bernardo Valle MD / Bernardo Valle MD Interpreting Provider: Bernardo Valle MD Indium Scan Nuclear Medicine 12/25/16 06:00 IMPRESSION: No abnormal white blood cell accumulation to localize active infection. D/ / Bernardo Valle MD / Bernardo Valle MD Interpreting Provider: Bernardo Valle MD Date of admission: 12/21/16 17:44 Primary care physician: Froylan Guido MD Consults: 12/21/16 16:58 Consult to Hospitalist [CONS] Routine Consulting Provider: Hospitalist Marija Reason for Consult: Medical management of patient for comorbid conditions and medications Call Completed: Yes 12/21/16 17:00 Consult to Invasive Line Access Team [CONS] Routine Reason for Consult: Patient will need terminal make up operator vancomycin therapy Line Type: PICC PICC line indications: terminal make up operator Med/Antibiotic 12/21/16 19:03 Consult to Clock Assembler [CONS] Routine Reason for SW Consult: Alcohol withdrawl 12/25/16 12:14 Consult to Invasive Line Access Team [CONS] Routine Reason for Consult: Picc Line Insertion Line Type: PICC - Patient Status Disposition: Home Health Service Condition: Good - Discharge Instructions Instructions: Cellulitis (DC) Follow Up With: Froylan Guido MD [Primary Care Provider] - 01/04/17 1:15 pm () Sanford Taylor DPM [Partnered Physician] - Additional Instructions: #1 Follow-up Dr. Taylor wound care clinic this January 03. Call for appointment time. #2 please draw CBC ESR and creatinine weekly - Hospital Course Hospital course: Mr. Parish is a 46 year old male - Time Spent with Patient Total time spent providing and/or coordinating discharge services:
[2016-12-29] MEDS ORDERED: Aminoglycoside Consult 1 EACH MC ONE (13:55)
[2016-12-29] MEDS ORDERED: Insulin LISPRO 300 UNITS/3 ML VIAL SQ SCH (21:00)
== END 2016-12-29 13:56 | disposition home health service (06) | DRG 361 ==
LOC: 3NENU → 2ANU 12-22 16:44
PROVIDERS: ADMIT Podiatrist Foot Surgery; ATTEND Podiatrist Foot Surgery

== ENCOUNTER 2018-03-13 11:12 | Inpatient (IN) ==
[2018-03-13] MEDS ORDERED: Piperacillin/Tazobactam 3.375 GM in 0.9 % Sodium Chloride Mini Bag 100 ML IVPB ONE (12:36)
[2018-03-13 12:54] LABS: Basophils % 0.2 %; Eosinophils % 0.4 %; Hematocrit 40.5 % (37.5-50.1); Hemoglobin 13.4 g/dL (12.9-16.9); Immature Granulocytes % 0.4 % (0-4); Mean Corpuscular HGB Conc 33.1 g/dL (31.6-35.5); Mean Corpuscular Hemoglobin 32.9 pg (28.0-33.3); Mean Corpuscular Volume 99.5 fL (83.0-100.0); Mean Platelet Volume 9.3 fL (9.4-12.4); Monocytes # 1.3 K/mcL (0.0-1.3); Monocytes % 13.9 %; Platelet Count 146 K/mcL (140-400); Red Blood Count 4.07 M/mcL (4.19-5.50); Red Cell Distribution Width 13.1 % (11.5-14.5); Segmented Neutrophils % 64.1 %
--- NOTE | 2018-03-13 12:58 | Emergency Department Note ---
Disposition Clinical Impression: Heel ulcer due to DM Qualifiers: Diabetes mellitus type: type 2 Laterality: left Non-pressure ulcer stage: unspecified non-pressure ulcer stage Qualified Code(s): E11.621 - Type 2 diabetes mellitus with foot ulcer Disposition: Admitted As Inpatient Condition: Fair Referrals: Froylan Guido MD [Primary Care Provider] - Forms: ED Satisfaction Letter Time of Disposition: 14:58 General Adult HPI - General Chief complaint: ED Wound/Laceration Stated complaint: Bi-lateral heel ulcers Time Seen by Provider: 03/13/18 11:39 Source: patient - History of Present Illness Pain Scale: 9 - Related Data Home Medications Medication Instructions Recorded Confirmed Albuterol Sulfate [Albuterol 2 puff IH Q4HR PRN 04/06/16 09/05/17 Inhaler] Metoprolol Succinate 100 mg PO BID 04/06/16 09/05/17 Multivitamin [Multi-Day Vitamins] 1 tab PO DAILY 04/06/16 09/05/17 [place]-3/Dha/Epa/Fish Oil [Fish Oil 2 cap PO BID 04/06/16 09/05/17 1,000 mg Softgel] Omeprazole [PriLOSEC] 40 mg PO DAILY 04/06/16 09/05/17 Quinapril HCl [Accupril] 40 mg PO DAILY 04/06/16 09/05/17 glipiZIDE [Glipizide] 10 mg PO BID 04/06/16 09/05/17 hydroCHLOROthiazide 25 mg PO DAILY 04/06/16 09/05/17 [Hydrochlorothiazide] Meloxicam 15 mg PO DAILY 06/01/16 09/05/17 Ibuprofen [Motrin] 600 mg PO BID PRN 12/21/16 09/05/17 Loratadine [Claritin] 10 mg PO DAILY 12/21/16 09/05/17 Pregabalin [Lyrica] 150 mg PO TID 12/21/16 09/05/17 diazePAM [Valium] 10 mg PO Q6HR PRN 09/05/17 09/05/17 Atorvastatin [Lipitor] 40 mg PO HS 03/13/18 03/13/18 Collagenase Oint [Santyl] 1 appl TP DAILY 03/13/18 03/13/18 DULoxetine [Cymbalta] 30 mg PO BID 03/13/18 03/13/18 Fluticasone Propionate Nasal 1 spr NS DAILY 03/13/18 03/13/18 [Flonase] metFORMIN [Glucophage] 500 mg PO BIDWM 03/13/18 03/13/18 risperiDONE [Risperdal] 2 mg PO BID 03/13/18 03/13/18 traZODone [TraZODone] 50 mg PO HS 03/13/18 03/13/18 Previous Rx's Medication Instructions Recorded OxyCODONE/APAP 5/325 [Percocet 1 each PO Q6HR PRN 2 Days #8 tablet 02/25/18 5/325 MG] Allergies Allergy/AdvReac Type Severity Reaction Status Date / Time hydrocodone [From Vicodin] AdvReac Severe Nausea Verified 02/25/18 14:08 cephalexin [From Keflex] AdvReac Vomiting Verified 02/25/18 14:08 codeine AdvReac Confusion Verified 02/25/18 14:08 morphine AdvReac Rash Verified 02/25/18 14:08 Past Medical History - Past Medical History Medical history: Reports: arthritis, COPD, diabetes, GERD, hypertension Surgical history: Reports: orthopedic, other, other Psychiatric history: Reports: anxiety, depression - Social History Smoking Status: Current every day smoker Smokeless Tobacco Status: No Alcohol use: Reports: heavy Drug use: Reports: none Physical Exam - General General appearance: alert Course Vital Signs Temperature 98 F 03/13/18 11:29 Pulse Rate 60 03/13/18 11:29 Respiratory Rate 18 03/13/18 11:29 Blood Pressure 143/84 03/13/18 11:29 O2 Sat by Pulse Oximetry 97 03/13/18 11:29 Temperature 98 F 03/13/18 11:44 Pulse Rate 64 03/13/18 13:56 Respiratory Rate 18 03/13/18 13:56 Blood Pressure 150/64 03/13/18 13:56 O2 Sat by Pulse Oximetry 96 03/13/18 13:56 Oxygen Delivery Oxygen Delivery Room Air Medical Decision Making - Lab Data Result diagrams: 03/13/18 12:35 03/13/18 12:35 Lab Results 03/13/18 03/13/18 03/13/18 Range/Units 12:35 12:35 12:35 WBC 9.4 (4.3-11.1) K/mcL RBC 4.07 L (4.19-5.50) M/mcL Hgb 13.4 (12.9-16.9) g/dL Hct 40.5 (37.5-50.1) % MCV 99.5 (83.0-100.0) fL MCH 32.9 (28.0-33.3) pg MCHC 33.1 (31.6-35.5) g/dL RDW 13.1 (11.5-14.5) % Plt Count 146 (140-400) K/mcL MPV 9.3 L (9.4-12.4) fL Immature Gran % 0.4 (0-4) % Seg Neutrophils % 64.1 % Lymphocytes % 21.0 % Monocytes % 13.9 % Eosinophils % 0.4 % Basophils % 0.2 % Neutrophils # 6.0 (1.6-8.9) K/mcL Lymphocytes # 2.0 (0.6-4.6) K/mcL Monocytes # 1.3 (0.0-1.3) K/mcL Eosinophils # 0.0 (0.0-0.6) K/mcL Basophils # 0.0 (0.0-0.2) K/mcL ESR 80 H (0-10) mm/hr Sodium (136-145) mEq/L Potassium (3.5-5.1) mEq/L Chloride (98-107) mEq/L Carbon Dioxide (23-29) mEq/L BUN (6-20) mg/dL Creatinine (0.70-1.30) mg/dL Est GFR ( Amer) (> 60) Est GFR (Non-Af Amer) (> 60) BUN/Creatinine Ratio (6-26) Glucose (70-105) mg/dL Calculated Osmolality (280-300) Calcium (8.6-10.3) mg/dL C-Reactive Protein 54 H (Less than 10) mg/L 03/13/18 Range/Units 12:35 WBC (4.3-11.1) K/mcL RBC (4.19-5.50) M/mcL Hgb (12.9-16.9) g/dL Hct (37.5-50.1) % MCV (83.0-100.0) fL MCH (28.0-33.3) pg MCHC (31.6-35.5) g/dL RDW (11.5-14.5) % Plt Count (140-400) K/mcL MPV (9.4-12.4) fL Immature Gran % (0-4) % Seg Neutrophils % % Lymphocytes % % Monocytes % % Eosinophils % % Basophils % % Neutrophils # (1.6-8.9) K/mcL Lymphocytes # (0.6-4.6) K/mcL Monocytes # (0.0-1.3) K/mcL Eosinophils # (0.0-0.6) K/mcL Basophils # (0.0-0.2) K/mcL ESR (0-10) mm/hr Sodium 139 (136-145) mEq/L Potassium 4.3 (3.5-5.1) mEq/L Chloride 103 (98-107) mEq/L Carbon Dioxide 30 H (23-29) mEq/L BUN 16 (6-20) mg/dL Creatinine 0.76 (0.70-1.30) mg/dL Est GFR ( Amer) > 60 (> 60) Est GFR (Non-Af Amer) > 60 (> 60) BUN/Creatinine Ratio 21 (6-26) Glucose 48 L (70-105) mg/dL Calculated Osmolality 286 (280-300) Calcium 9.5 (8.6-10.3) mg/dL C-Reactive Protein (Less than 10) mg/L Attestation Statement - Attestation Attestation: I, Hang Madsen DO, examined this patient [id number] and my medical decision-making was reviewed with Dr. Tasneem Young, Resident Physician. I agree with the documented findings, disposition and treatment plan as described except to the extent set forth below. Please see my progress notes for details. 47-year-old male presents emergency room at the request of podiatry for evaluation of bilateral heel ulcers. Patient does have poorly controlled diabetes. Has been managing the wound care clinic and podiatry for several weeks now. They are concerned about possible gangrene. Patient has had intermittent chills but denies chest pain shortness of breath headache vision changes nausea vomiting or diarrhea. Denies any fevers. Denies any new medications. Denies any falls trauma or injury. Patient otherwise is not a very good historian and does not take care of himself very well. Patient is resting in the bed. Lungs are clear heart is regular abdomen is soft. Vital signs are stable. Bilateral ulcers are noted on the base of the heels. There is no redness warmth or swelling noted. No crepitus to the extremities. He has full range of motion of the hips knees and ankles bilaterally with appreciable pulses in the DP and PT distribution. They are difficult to picking machine operator helper secondary to the patient's body habitus. He has no specific history of coronary artery disease or peripheral vascular disease that is noted at this time. Patient will have x-rays of the feet CBC chemistry blood cultures and cultures ESR and CRP could completed here in the emergency room. First doses of IV vancomycin and Zosyn will be given an admission process will be established. Patient is otherwise clinically stable in no distress. Appropriate consultation will podia try will be placed. Physical exam, medical intervention, medical decision- making disposition the resident physician's note. [id number] Patient found to have stable appearing bilateral heels. No visible signs of osteomyelitis or bony deterioration. No free air noted. Antibiotic regimen was started. Labs otherwise unremarkable except for elevated ESR and CRP. The certified addiction counselor Dr. Mejia was contacted and no other recommendations at this time. Patient will be admitted to the hospitalist service for continuation of care management of diabetes. Patient is otherwise clinically stable. Disposition has been established. The hospitalist Dr. Tellez reviewed the case and has no other concerns or issues. Patient is otherwise stable admission process to be established
--- NOTE | 2018-03-13 13:07 | Emergency Department Note ---
Disposition Clinical Impression: Heel ulcer due to DM Disposition: Admitted As Inpatient Condition: Good Time of Disposition: 15:08 Wound/Laceration HPI - General Chief Complaint: ED Wound/Laceration Stated Complaint: Bi-lateral heel ulcers Time Seen by Provider: 03/13/18 11:39 Source: patient Nursing Notes Reviewed: Yes Vital Signs Reviewed: Yes - History of Present Illness HPI Narrative: Patient's a 47-year-old male with history of diabetes, negative by neuropathy and diabetic foot ulcers who presents to the emergency department from wound care with complaints of bilateral heel ulcers. He states he was seen today by the nurse and was told that there is concern for gangrene. He has long history of chronic pressure ulcers and osteomyelitis. He otherwise complains of chills at home and left-sided rib pain which is been present for weeks after a fall for which he has been treated. He otherwise denies any fever, chest pain, shortness breath, abdominal pain, nausea, vomiting, diarrhea. - Related Data Home Medications Medication Instructions Recorded Confirmed Albuterol Sulfate [Albuterol 2 puff IH Q4HR PRN 04/06/16 03/13/18 Inhaler] Multivitamin [Multi-Day Vitamins] 1 tab PO DAILY 04/06/16 03/13/18 [place]-3/Dha/Epa/Fish Oil [Fish Oil 2 cap PO BID 04/06/16 03/13/18 1,000 mg Softgel] Omeprazole [PriLOSEC] 40 mg PO DAILY 04/06/16 03/13/18 Quinapril HCl [Accupril] 40 mg PO DAILY 04/06/16 03/13/18 RX: Metoprolol Succinate 100 mg PO BID 04/06/16 03/13/18 RX: glipiZIDE [Glipizide] 10 mg PO BID 04/06/16 03/13/18 RX: hydroCHLOROthiazide 25 mg PO DAILY 04/06/16 03/13/18 [Hydrochlorothiazide] RX: Meloxicam 15 mg PO DAILY 06/01/16 03/13/18 Pregabalin [Lyrica] 150 mg PO TID 12/21/16 03/13/18 RX: Ibuprofen [Motrin] 600 mg PO BID PRN 12/21/16 03/13/18 RX: Loratadine [Claritin] 10 mg PO DAILY 12/21/16 03/13/18 RX: diazePAM [Valium] 10 mg PO Q6HR PRN 09/05/17 03/13/18 Atorvastatin [Lipitor] 40 mg PO HS 03/13/18 03/13/18 Collagenase Oint [Santyl] 1 appl TP DAILY 03/13/18 03/13/18 DULoxetine [Cymbalta] 30 mg PO BID 03/13/18 03/13/18 RX: Fluticasone Propionate Nasal 1 spr NS DAILY 03/13/18 03/13/18 [Flonase] RX: traZODone [TraZODone] 50 mg PO HS 03/13/18 03/13/18 metFORMIN [Glucophage] 500 mg PO BIDWM 03/13/18 03/13/18 risperiDONE [Risperdal] 2 mg PO BID 03/13/18 03/13/18 Previous Rx's Medication Instructions Recorded RX: OxyCODONE/APAP 5/325 [Percocet 1 each PO Q6HR PRN 2 Days #8 tablet 02/25/18 5/325 MG] Allergies Allergy/AdvReac Type Severity Reaction Status Date / Time hydrocodone [From Vicodin] AdvReac Severe Nausea Verified 02/25/18 14:08 cephalexin [From Keflex] AdvReac Vomiting Verified 02/25/18 14:08 codeine AdvReac Confusion Verified 02/25/18 14:08 morphine AdvReac Rash Verified 02/25/18 14:08 Review of Systems: As Per HPI Limitations: ROS unobtainable due to patients medical condition Past Medical History - Past Medical History Medical history: Reports: arthritis, COPD, diabetes, GERD, hypertension Surgical history: Reports: orthopedic, other, other Psychiatric history: Reports: anxiety, depression - Social History Smoking Status: Current every day smoker Smokeless Tobacco Status: No Alcohol use: Reports: heavy Drug use: Reports: none Physical Exam - General Limitations: no limitations General appearance: alert, in no apparent distress, obese - Head Head exam: atraumatic, normocephalic - Eye Eye exam: Present: normal appearance - Chest Chest inspection: Present: normal inspection - Expanded Chest Exam Trauma: Present: ecchymosis (Significant area of ecchymosis on left lower chest wall, well-healing) - Respiratory Respiratory exam: Present: normal lung sounds bilaterally. Absent: respiratory distress, accessory muscle use - Cardiovascular Cardiovascular exam: Present: regular rate, normal rhythm, normal heart sounds - Abdominal Exam Abdominal exam: Present: soft, Non-Tender, normal bowel sounds - Expanded Lower Extremity Exam Lower leg exam: Present: normal inspection, full ROM. Absent: tenderness, swelling Ankle exam: Present: full ROM, tenderness Foot/toe exam: Present: swelling (Dorsum of left foot). Absent: crepitus 1 - Small 0.5 x 0.5 cm ulcer, well-healing. No purulence no erythema or warmth 1 - 3 x 3 cm stage II pressure ulcer no surrounding erythema or warmth 2 - 4 x 2 cm states she pressure ulcer with significant soft tissue swelling surrounding. No crepitus area also erythema and warmth. Small green purulent drainage at periphery of wound. Neurovascular/Tendon exam: Present: normal capillary refill. Absent: pulse deficit, pallor - Neurological Exam Neurological exam: Present: alert, oriented X3 - Psychiatric Psychiatric exam: Present: normal affect, normal mood Course Course Narrative: 47-year-old male with certain for acute worsening of chronic diabetic foot ulcers primarily on the left. We will obtain bilateral foot x-rays as well as inflammatory markers of CRP, sedimentation rate, blood cultures, wound cultures, CBC, BMP. Will likely require admission for IV antibiotics and debridement of wound. Vital Signs Temperature 98 F 03/13/18 11:29 Pulse Rate 60 03/13/18 11:29 Respiratory Rate 18 03/13/18 11:29 Blood Pressure 143/84 03/13/18 11:29 O2 Sat by Pulse Oximetry 97 03/13/18 11:29 Temperature 98 F 03/13/18 11:44 Pulse Rate 64 03/13/18 13:56 Respiratory Rate 18 03/13/18 13:56 Blood Pressure 150/64 03/13/18 13:56 O2 Sat by Pulse Oximetry 96 03/13/18 13:56 Oxygen Delivery Oxygen Delivery Room Air Wound/Laceration - MDM Narrative Medical decision making narrative: 47-year-old diabetic male with bilateral pressure ulcers now progressing to infectious ulcers primarily on the left heel. ESR elevated at 80. No evidence of leukocytosis. Bilateral foot x-rays show no evidence of gas producing organisms or osteomyelitis. Patient started on IV vancomycin and Zosyn. Patient will be admitted to internal medicine with consult to podiatry for possible debridement and continuance of antibiotic therapy - Medical Records Medical records reviewed: Yes I reviewed the patient's medical records. - Lab Data Lab results reviewed: Yes I reviewed the patient's lab results. Result diagrams: 03/13/18 12:35 03/13/18 12:35 Lab Results 03/13/18 03/13/18 03/13/18 Range/Units 12:35 12:35 12:35 WBC 9.4 (4.3-11.1) K/mcL RBC 4.07 L (4.19-5.50) M/mcL Hgb 13.4 (12.9-16.9) g/dL Hct 40.5 (37.5-50.1) % MCV 99.5 (83.0-100.0) fL MCH 32.9 (28.0-33.3) pg MCHC 33.1 (31.6-35.5) g/dL RDW 13.1 (11.5-14.5) % Plt Count 146 (140-400) K/mcL MPV 9.3 L (9.4-12.4) fL Immature Gran % 0.4 (0-4) % Seg Neutrophils % 64.1 % Lymphocytes % 21.0 % Monocytes % 13.9 % Eosinophils % 0.4 % Basophils % 0.2 % Neutrophils # 6.0 (1.6-8.9) K/mcL Lymphocytes # 2.0 (0.6-4.6) K/mcL Monocytes # 1.3 (0.0-1.3) K/mcL Eosinophils # 0.0 (0.0-0.6) K/mcL Basophils # 0.0 (0.0-0.2) K/mcL ESR 80 H (0-10) mm/hr Sodium (136-145) mEq/L Potassium (3.5-5.1) mEq/L Chloride (98-107) mEq/L Carbon Dioxide (23-29) mEq/L BUN (6-20) mg/dL Creatinine (0.70-1.30) mg/dL Est GFR ( Amer) (> 60) Est GFR (Non-Af Amer) (> 60) BUN/Creatinine Ratio (6-26) Glucose (70-105) mg/dL Calculated Osmolality (280-300) Calcium (8.6-10.3) mg/dL C-Reactive Protein 54 H (Less than 10) mg/L 03/13/18 Range/Units 12:35 WBC (4.3-11.1) K/mcL RBC (4.19-5.50) M/mcL Hgb (12.9-16.9) g/dL Hct (37.5-50.1) % MCV (83.0-100.0) fL MCH (28.0-33.3) pg MCHC (31.6-35.5) g/dL RDW (11.5-14.5) % Plt Count (140-400) K/mcL MPV (9.4-12.4) fL Immature Gran % (0-4) % Seg Neutrophils % % Lymphocytes % % Monocytes % % Eosinophils % % Basophils % % Neutrophils # (1.6-8.9) K/mcL Lymphocytes # (0.6-4.6) K/mcL Monocytes # (0.0-1.3) K/mcL Eosinophils # (0.0-0.6) K/mcL Basophils # (0.0-0.2) K/mcL ESR (0-10) mm/hr Sodium 139 (136-145) mEq/L Potassium 4.3 (3.5-5.1) mEq/L Chloride 103 (98-107) mEq/L Carbon Dioxide 30 H (23-29) mEq/L BUN 16 (6-20) mg/dL Creatinine 0.76 (0.70-1.30) mg/dL Est GFR ( Amer) > 60 (> 60) Est GFR (Non-Af Amer) > 60 (> 60) BUN/Creatinine Ratio 21 (6-26) Glucose 48 L (70-105) mg/dL Calculated Osmolality 286 (280-300) Calcium 9.5 (8.6-10.3) mg/dL C-Reactive Protein (Less than 10) mg/L - Radiology Data Radiology results reviewed: Yes I reviewed the patient's radiology results. Attestation Statement - Attestation Attestation: I, Hang Madsen DO, examined this patient [id number] and my medical decision-making was reviewed with Dr. Tasneem Young, Resident Physician. I agree with the documented findings, disposition and treatment plan as described except to the extent set forth below. Please see my progress notes for details.
[2018-03-13 13:17] LABS: BUN/Creatinine Ratio 21 (6-26); Blood Urea Nitrogen 16 mg/dL (6-20); Calcium 9.5 mg/dL (8.6-10.3); Carbon Dioxide 30 mEq/L (23-29); Chloride 103 mEq/L (98-107); Glucose 48 mg/dL (70-105); Osmolality,Calculated 286 (280-300); Potassium 4.3 mEq/L (3.5-5.1); Sodium 139 mEq/L (136-145); eGFR For Non-African Americans > 60 (> 60)
[2018-03-13] MEDS ORDERED: *HR* OxyCODONE/APAP 5/325 TABLET PO ONE (13:21)
[2018-03-13] MEDS: Nicotine 21 MG PATCH.TD24 TD SCH (13:50)
[2018-03-13] MEDS ORDERED: D5% in Water 1,000 ML IVC PRN (15:53)
[2018-03-13] MEDS ORDERED: *HR* Dextrose 50 % in Water (Syg) 50 ML SYRINGE IVP PRN (15:53)
[2018-03-13] MEDS ORDERED: Naloxone 0.4 MG/ML INJ IVP PRN (15:53)
[2018-03-13] MEDS ORDERED: Dextrose Gel 15 GM/37.5 ML TUBE PO PRN ×2 (15:53)
[2018-03-13] MEDS ORDERED: *HR* LORazepam 2 MG/ML VIAL IVP PRN ×3 (15:53)
[2018-03-13] MEDS ORDERED: Acetaminophen 325 MG TABLET PO PRN (15:53)
--- NOTE | 2018-03-13 16:11 | Internal Med History&Physical ---
Date of Encounter: 03/13/18 Time of Encounter: 15:20 Internal Medicine - H&P: HPI Chief complaint: Foot ulcer Admitted From: Home Plans for Post Hospital Care: Home History of present illness: Mr. Parish is a 47 year old male present to ER for B/L feet ulcer on the heels area. PMH is significant for DM with neuropathy, HTN, COPD, CHLOE on CPAP, GERD, tobacco abuse, alcohol abuse. Pt said he start to have b/l heel ulcer since about 2 months ago. He can see them but cannot feel them. Since about 2 weeks ago, he start to feel pain on left heel and intermittent pain on right heel, when he walks. Pt denies fever but feel chills occassionally. Pt denies headache, SOB, chest pain, abd pain, nausea or vomiting, diarrhea or urination symptoms. Pt had mechanical fall 2 weeks ago with left side rib fracture. 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 Psychiatric history: anxiety, depression - Past Surgical History Surgical History: orthopedic, other, other Additional surgical history: graft placement to left plantar foot X5 - Social History Smoking Status: Current every day smoker Smokeless Tobacco Status: No Alcohol use: heavy Drug use: none - Family History Mother Adopted: No Living Status: Still Living Hx Family Cardiac Disorders: Yes Hx Family Respiratory Disorders: Yes Hx Family Cancer: No Hx Family GI Disorders: No Hx Family Endocrine Disorder: No Hx Family Neuromuscular Disorders: No Hx Family Neurologic Disorders: No Hx Family HEENT Disorders: No Hx Family Autoimmune Disorders: No Father Adopted: No Family Member Ethnicity: Non- Living Status: Hx Family Cardiac Disorders: Yes Hx Family Respiratory Disorders: Yes Hx Family Cancer: Yes Hx Family GI Disorders: No Hx Family Endocrine Disorder: Yes Hx Family Neuromuscular Disorders: No Hx Family Neurologic Disorders: No Hx Family HEENT Disorders: No Hx Family Autoimmune Disorders: No Internal Medicine - H&P: Meds Albuterol Sulfate [Albuterol Inhaler] 2 puff IH Q4HR PRN 04/06/16 [History] Metoprolol Succinate 100 mg PO BID 04/06/16 [History] Multivitamin [Multi-Day Vitamins] 1 tab PO DAILY 04/06/16 [History] [place]-3/Dha/Epa/Fish Oil [Fish Oil 1,000 mg Softgel] 2 cap PO BID 04/06/16 [History] Omeprazole [PriLOSEC] 40 mg PO DAILY 04/06/16 [History] Quinapril HCl [Accupril] 40 mg PO DAILY 04/06/16 [History] glipiZIDE [Glipizide] 10 mg PO BID 04/06/16 [History] hydroCHLOROthiazide [Hydrochlorothiazide] 25 mg PO DAILY 04/06/16 [History] Meloxicam 15 mg PO DAILY 06/01/16 [History] Ibuprofen [Motrin] 600 mg PO BID PRN 12/21/16 [History] Loratadine [Claritin] 10 mg PO DAILY 12/21/16 [History] Pregabalin [Lyrica] 150 mg PO TID 12/21/16 [History] diazePAM [Valium] 10 mg PO Q6HR PRN 09/05/17 [History] OxyCODONE/APAP 5/325 [Percocet 5/325 MG] 1 each PO Q6HR PRN 2 Days #8 tablet 02/25/18 [Rx] Atorvastatin [Lipitor] 40 mg PO HS 03/13/18 [History] Collagenase Oint [Santyl] 1 appl TP DAILY 03/13/18 [History] DULoxetine [Cymbalta] 30 mg PO BID 03/13/18 [History] Fluticasone Propionate Nasal [Flonase] 1 spr NS DAILY 03/13/18 [History] metFORMIN [Glucophage] 500 mg PO BIDWM 03/13/18 [History] risperiDONE [Risperdal] 2 mg PO BID 03/13/18 [History] traZODone [TraZODone] 50 mg PO HS 03/13/18 [History] Allergy/AdvReac Type Severity Reaction Status Date / Time hydrocodone [From Vicodin] AdvReac Severe Nausea Verified 02/25/18 14:08 cephalexin [From Keflex] AdvReac Vomiting Verified 02/25/18 14:08 codeine AdvReac Confusion Verified 02/25/18 14:08 morphine AdvReac Rash Verified 02/25/18 14:08 All Systems PM: A 10-system review of systems was performed and is negative for pertinent findings except as documented above in the HPI. - Constitutional Vitals: Temp Pulse Resp BP Pulse Ox 98 F 69 20 132/63 96 03/13/18 11:44 03/13/18 15:06 03/13/18 15:06 03/13/18 15:06 03/13/18 13:56 General appearance: Present: A&O X 3, pleasant, no acute distress, answers questions appropriately Exam: in NAD - Head Head exam: Present: atraumatic, normocephalic - Eye Eye exam: Present: PERRL, conjuntiva pink, sclera anicteric Pupils: Present: PERRL - Neck Neck exam general surgery: Present: supple, trachea midline. Absent: lymp hadenopathy - Respiratory Respiratory exam: Present: CTAB. Absent: accessory muscle use, rales, rhonchi, wheezes - Cardiovascular Cardiovascular exam: Present: RRR, +S1, +S2. Absent: diastolic murmur, gallop, rubs, systolic murmur - GI/Abdominal GI/Abdominal exam: Present: normal bowel sounds, soft, no peritoneal signs. Absent: distended, tenderness - Extremities Exam Extremities exam: Present: warm, radial pulses palpable and symmetrical. Absent: calf tenderness, cyanotic, pedal edema Additional comments: B/L heel has big ulcer on the lateral side, around 5 x 5 cm, with black crust. - Neurological Exam Neurological exam: Present: CN II-XII intact, motor sensory deficit (Decreased sensition on b/l feet), oriented X3, no focal deficits. Absent: pronater drift, facial droop, speech deficit - Skin Skin exam: Present: dry, intact Internal Med - H&P Results - Labs CBC & Chem 7: 03/13/18 12:35 03/13/18 12:35 Labs: Short CBC 03/13/18 Range/Units 12:35 WBC 9.4 (4.3-11.1) K/mcL Hgb 13.4 (12.9-16.9) g/dL Hct 40.5 (37.5-50.1) % Plt Count 146 (140-400) K/mcL Neutrophils # 6.0 (1.6-8.9) K/mcL BMP 03/13/18 12:35 Sodium 139 Potassium 4.3 Chloride 103 Carbon Dioxide 30 H BUN 16 Creatinine 0.76 Glucose 48 L Calcium 9.5 - Impressions ITS Impressions Foot X-Ray 03/13/18 12:34 IMPRESSION: Chronic changes within the left great toe. Nonspecific soft tissue swelling about the foot and heel without definite gas collection, foreign body, or evident deep skin ulceration. Cellulitis is suspected. No plain film evidence to suggest osteomyelitis. D/ / Ryan Mai MD / Ryan Mai MD Interpreting Provider: Ryan Mai MD Foot X-Ray 03/13/18 12:35 IMPRESSION: No discrete heel ulcer is visualized and likely related to technique.. Mild dorsal soft tissue swelling. No other acute osseous abnormality. D/ / 03/13/2018 13:27:55 Vira Muhammad MD / lizeth Interpreting Provider: Vira Muhammad MD - Assessment and plan (1) CHLOE (obstructive sleep apnea) Current Visit: Yes Status: Acute Assessment and plan: Cont CPAP during night (2) Morbid obesity Current Visit: Yes Status: Acute Assessment and plan: Need lifestyle modification as outpatient. (3) Heel ulcer Current Visit: Yes Status: Acute Assessment and plan: Pt has DM neuropathy. Has b/l heels ulcer. Consider DM foot ulcer. - Pt doesn't show systemic symptoms, no fever or leukocytosis. - X-ray shows cellulitis, no gas identified. - Place pt on vanco and zosyn - Blood and wound culture seend by ER - Consult podiatry, informed by ER. - Not meet sepsis criteria now. Qualifiers: Laterality: right Non-pressure ulcer stage: limited to breakdown of skin Qualified Code(s): L97.411 - Non-pressure chronic ulcer of right heel and midfoot limited to breakdown of skin (4) DVT prophylaxis Current Visit: No Status: Acute Assessment and plan: Heparin SC (5) Fracture of three ribs of left side Current Visit: No Status: Acute Assessment and plan: Cont pain control as needed. Qualifiers: Encounter type: subsequent encounter Fracture type: closed Fracture healing: with routine healing Qualified Code(s): S22.42XD - Multiple fractures of ribs, left side, subsequent encounter for fracture with routine healing (6) Alcohol abuse Current Visit: No Status: Chronic Assessment and plan: Pt said he drinks 18-[address] pt on CIWA protocol. Closely monitor withdraw symptoms. (7) COPD (chronic obstructive pulmonary disease) Current Visit: No Status: Chronic Assessment and plan: Stable, no wheezing, cont home meds. 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 Qualifiers: Hypertension type: essential hypertension Qualified Code(s): I10 - Essent ial (primary) hypertension (10) Tobacco abuse Current Visit: No Status: Chronic Assessment and plan: Smoking cessation education. Place pt on nicotine patch. - Time Spent With Patient Total time spent is greater than 50% in coordination of care (as documented) at patient's floor/unit and/or counseling patient: 40 min Greater than 35 minutes
[2018-03-13] MEDS: Insulin LISPRO 300 UNITS/3 ML VIAL SQ SCH ×2 (17:09→20:02)
[2018-03-13] MEDS: *HR* Heparin 5,000 UNIT/ML VIAL SQ SCH (17:43)
[2018-03-13] MEDS: Thiamine (B-1) 100 MG, Folic Acid 1 MG, MVI, adult with vitamin K 10 ML in 0.9 % Sodi... IVPB SCH (17:44)
[2018-03-13] MEDS: Pregabalin 75 MG CAPSULE PO SCH (19:48)
[2018-03-13] MEDS: *HR* OxyCODONE/APAP 5/325 TABLET PO PRN (19:48)
[2018-03-13] MEDS: traZODone 50 MG TABLET PO SCH (19:48)
[2018-03-13] MEDS: risperiDONE 1 MG TABLET PO SCH (19:49)
[2018-03-13] MEDS ORDERED: NON-FORMULARY MEDICATION 1 EACH EACH (Omega-3/Dha/Epa/Fish Oil [Fish Oil 1,000 Mg Softgel] PO SCH (21:00)
[2018-03-13] MEDS: Piperacillin/Tazobactam 3.375 GM in 0.9 % Sodium Chloride Mini Bag 100 ML IVPB SCH (22:27)
[2018-03-14 04:26] LABS: Basophils % 0.4 %; Eosinophils # 0.1 K/mcL (0.0-0.6); Hematocrit 36.2 % (37.5-50.1); Immature Granulocytes % 0.4 % (0-4); Lymphocytes # 1.9 K/mcL (0.6-4.6); Lymphocytes % 23.6 %; Mean Corpuscular HGB Conc 32.6 g/dL (31.6-35.5); Mean Corpuscular Hemoglobin 32.7 pg (28.0-33.3); Mean Corpuscular Volume 100.3 fL (83.0-100.0); Mean Platelet Volume 9.4 fL (9.4-12.4); Monocytes # 1.3 K/mcL (0.0-1.3); Monocytes % 15.7 %; Neutrophils # 4.8 K/mcL (1.6-8.9); Platelet Count 119 K/mcL (140-400); Red Blood Count 3.61 M/mcL (4.19-5.50); Red Cell Distribution Width 13.1 % (11.5-14.5); Segmented Neutrophils % 58.9 %
[2018-03-14 04:32] LABS: Hemoglobin 11.8 g/dL (12.9-16.9)
[2018-03-14 04:34] LABS: INR 1.4; Prothrombin Time 15.2 Seconds (9.4-12.1)
[2018-03-14 04:41] LABS: BUN/Creatinine Ratio 20 (6-26); Blood Urea Nitrogen 15 mg/dL (6-20); Calcium 9.1 mg/dL (8.6-10.3); Carbon Dioxide 27 mEq/L (23-29); Chloride 103 mEq/L (98-107); Glucose 112 mg/dL (70-105); Magnesium 2.1 mg/dL (1.6-2.6); Osmolality,Calculated 282 (280-300); Sodium 135 mEq/L (136-145); eGFR For Non-African Americans > 60 (> 60)
[2018-03-14] MEDS: *HR* Heparin 5,000 UNIT/ML VIAL SQ SCH ×2 (04:54→17:44)
[2018-03-14] MEDS: Piperacillin/Tazobactam 3.375 GM in 0.9 % Sodium Chloride Mini Bag 100 ML IVPB SCH ×3 (04:54→20:44)
[2018-03-14] MEDS ORDERED: 0.9 % Sodium Chloride 1,000 ML IVC SCH (08:00)
[2018-03-14] MEDS: Insulin LISPRO 300 UNITS/3 ML VIAL SQ SCH ×4 (08:08→20:41)
[2018-03-14] MEDS: hydroCHLOROthiazide 25 MG TABLET PO SCH (08:19)
[2018-03-14] MEDS: risperiDONE 1 MG TABLET PO SCH ×2 (08:20→20:40)
[2018-03-14] MEDS: Lisinopril 20 MG TABLET PO SCH (08:20)
[2018-03-14] MEDS: Pregabalin 75 MG CAPSULE PO SCH ×3 (08:20→20:40)
[2018-03-14] MEDS: Fluticasone Propionate Nasal 50 MCG/SPRAY BOTTLE NS SCH (08:21)
[2018-03-14] MEDS: *HR* OxyCODONE/APAP 5/325 TABLET PO PRN ×2 (08:33→22:16)
--- NOTE | 2018-03-14 10:51 | Podiatry Consult Note ---
Date of Encounter: 03/14/18 Time of Encounter: 09:36 Assessment and Plan (1) Heel ulcer due to DM Current visit: Yes Status: Acute Bilateral heel ulcer noted Right ulcer measuring 3.3 x 4 x 0.3 cm, scar noted to wound bed, maceration noted around wound bed Left heel ulcer measuring 2.3 x 3.8 x 0.4, eschar noted to wound bed, malodorous, maceration noted around wound bed Lateral left ulcer measuring 1 x 1 x 0.4 cm X-ray evaluated, at this time no signs of osteomyelitis or gas gangrene, right foot visual limited due to d/t imaging Old dressing removed with serosanguineous drainage noted to bilateral dressings Applied Adaptic, abdominal pad, Kerlix, and tape to bilateral heel ulcers. ESR 80, CRP 54 -concerning for osteomyelitis Limited weight bearing. Plan for surgery tomorrow. NPO after midnight Qualifiers: Diabetes mellitus type: type 2 Laterality: left Non-pressure ulcer stage: unspecified non-pressure ulcer stage Qualified Code(s): E11.621 - Type 2 diabetes mellitus with foot ulcer; L97.429 - Non-pressure chronic ulcer of left heel and midfoot with unspecified severity History of Present Illness HPI: Mr. Parish is a 47 year old male is well known to the podiatry clinic. PMH of H [place], DM with neuropathy, COPD with CHLOE, arthritis, tarsal tunnel syndrome, carpal tunnel syndrome, ETOH abuse reporting 5-6 beers 2-3 times a week, and 1 PPD smoker. Patient follows in wound clinic on Wednesdays weekly for right diabetic heel ulcer and left diabetic heel ulcer. ABIs were completed on 02/28/18. PT 1.17, and right DP 1.13, left PT 1.14, left DP 1.07. TC PO2 levels on 02/28/18 consistent with wound healing, right ankle 72, right foot 70, left ankle 63, left foot 60. Was then seen on 03/02 in the ED for fall at home. Patient reports falling and bathroom on 02/28. X-ray at that time revealed nondisplaced fracture of left lateral ribs #6, 7, 8. Patient was seen in wound center yesterday 03/13 4 ulcer care, wound nurse sent patient to ED with concerns of gangrene. Again, Mr. Parish is a 47-year-old male who presented last evening to the ED, per wound care recommendations. Patient reports pain when ambulating to bilateral lateral aspects of heel. Reports worsening odor of left foot ulcer. He reports home care has been coming and changing bilateral heel ulcers daily and placing Santyl on wound bed. Reports worsening eschar to wound bed. Left foot x-ray on admission showed no gas, no osteomyelitis, but possible cellulitis. Right foot x-ray showed mild tissue swelling but unable to visualize ulcer due to imaging. Denies N/V/D, fevers, chills. 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 Psychiatric history: anxiety, depression - Past Surgical History Surgical History: orthopedic, other, other Additional surgical history: graft placement to left plantar foot X5 - Social History Smoking Status: Current every day smoker Smokeless Tobacco Status: No Alcohol use: heavy Drug use: none - Family History Mother Adopted: No Living Status: Still Living Hx Family Cardiac Disorders: Yes Hx Family Respiratory Disorders: Yes Hx Family Cancer: No Hx Family GI Disorders: No Hx Family Endocrine Disorder: No Hx Family Neuromuscular Disorders: No Hx Family Neurologic Disorders: No Hx Family HEENT Disorders: No Hx Family Autoimmune Disorders: No Father Adopted: No Family Member Ethnicity: Non- Living Status: Hx Family Cardiac Disorders: Yes Hx Family Respiratory Disorders: Yes Hx Family Cancer: Yes Hx Family GI Disorders: No Hx Family Endocrine Disorder: Yes Hx Family Neuromuscular Disorders: No Hx Family Neurologic Disorders: No Hx Family HEENT Disorders: No Hx Family Autoimmune Disorders: No Medications and Allergies Albuterol Sulfate [Albuterol Inhaler] 2 puff IH Q4HR PRN 04/06/16 [History] Metoprolol Succinate 100 mg PO BID 04/06/16 [History] Multivitamin [Multi-Day Vitamins] 1 tab PO DAILY 04/06/16 [History] [place]-3/Dha/Epa/Fish Oil [Fish Oil 1,000 mg Softgel] 2 cap PO BID 04/06/16 [History] Omeprazole [PriLOSEC] 40 mg PO DAILY 04/06/16 [History] Quinapril HCl [Accupril] 40 mg PO DAILY 04/06/16 [History] glipiZIDE [Glipizide] 10 mg PO BID 04/06/16 [History] hydroCHLOROthiazide [Hydrochlorothiazide] 25 mg PO DAILY 04/06/16 [History] Meloxicam 15 mg PO DAILY 06/01/16 [History] Ibuprofen [Motrin] 600 mg PO BID PRN 12/21/16 [History] Loratadine [Claritin] 10 mg PO DAILY 12/21/16 [History] Pregabalin [Lyrica] 150 mg PO TID 12/21/16 [History] diazePAM [Valium] 10 mg PO Q6HR PRN 09/05/17 [History] OxyCODONE/APAP 5/325 [Percocet 5/325 MG] 1 each PO Q6HR PRN 2 Days #8 tablet 02/25/18 [Rx] Atorvastatin [Lipitor] 40 mg PO HS 03/13/18 [History] Collagenase Oint [Santyl] 1 appl TP DAILY 03/13/18 [History] DULoxetine [Cymbalta] 30 mg PO BID 03/13/18 [History] Fluticasone Propionate Nasal [Flonase] 1 spr NS DAILY 03/13/18 [History] metFORMIN [Glucophage] 500 mg PO BIDWM 03/13/18 [History] risperiDONE [Risperdal] 2 mg PO BID 03/13/18 [History] traZODone [TraZODone] 50 mg PO HS 03/13/18 [History] Allergy/AdvReac Type Severity Reaction Status Date / Time hydrocodone [From Vicodin] AdvReac Severe Nausea Verified 02/25/18 14:08 cephalexin [From Keflex] AdvReac Vomiting Verified 02/25/18 14:08 codeine AdvReac Confusion Verified 02/25/18 14:08 morphine AdvReac Rash Verified 02/25/18 14:08 All Systems Reviewed: The remainder of the systems were reviewed and are negative - Constitutional Constitutional: frequent falls, no fever(s) - Cardiovascular Cardiovascular: leg edema, leg ulcers, pedal edema, no chest pain, no irregular heart rhythm - Respiratory Respiratory: as per HPI - Musculoskeletal Musculoskeletal: muscle weakness, numbness Physical Exam - Constitutional Vitals: Temp Pulse Resp BP Pulse Ox 98.5 F 80 15 158/79 92 03/14/18 06:42 03/14/18 06:42 03/14/18 06:42 03/14/18 06:42 03/14/18 06:42 Exam: Constitiutional: Alert and oriented x 3. Morbidly obese Vascular: doppler pulses DP/PT bilaterally, CFT <3 sec to all digits, warm to warm from tibia to toes bilaterally, 1/4 edema noted bilaterally Neurologic: Absent light touch and pinprick test, normal plantar response, Abnormal position sense dorsiflexion/plantar flexion Dermatologic: Left heel ulcer measuring 2.3 x 3.8 x 0.4 cm, eschar noted to wound bed, maceration noted around wound bed, right heel ulcer measuring 3.3 x 4 x 0.3 cm, eschar noted to wound bed, maceration noted around wound bed Musculoskeletal: 4/5 muscle strength and normal tone bilaterally. Results - Labs Result Diagrams: 03/14/18 03:54 03/14/18 03:54 Labs: Abnormal lab results RBC 3.61 M/mcL (4.19-5.50) L 03/14/18 03:54 Hgb 11.8 g/dL (12.9-16.9) L D 03/14/18 03:54 Hct 36.2 % (37.5-50.1) L 03/14/18 03:54 MCV 100.3 fL (83.0-100.0) H 03/14/18 03:54 Plt Count 119 K/mcL (140-400) L 03/14/18 03:54 ESR 80 mm/hr (0-10) H 03/13/18 12:35 PT 15.2 Seconds (9.4-12.1) H 03/14/18 03:54 Sodium 135 mEq/L (136-145) L 03/14/18 03:54 Glucose 112 mg/dL (70-105) H 03/14/18 03:54 POC Glucose 113 mg/dL (70-99) H 03/14/18 05:33 C-Reactive Protein 54 mg/L (Less than 10) H 03/13/18 12:35 H & H 03/13/18 03/14/18 Range/Units 12:35 03:54 Hgb 13.4 11.8 L D (12.9-16.9) g/dL Hct 40.5 36.2 L (37.5-50.1) % All other labs normal. - Diagnostic results Ankle/Foot x-ray: report reviewed Consult Discharge Plan - Plan Referrals: Froylan Guido MD [Primary Care Provider] -
--- NOTE | 2018-03-14 12:30 | Internal Med Progress Note ---
Hospitalist Progress Note - Encounter Date of Encounter: 03/14/18 Time of Encounter: 09:00 - Subjective Interval History: Pt laying on bed comfortably. C/O left rib pain. No fever. Denies headache/nausea/tremor. - Exam Vitals: Temp Pulse Resp BP Pulse Ox 98.9 F 78 15 124/71 93 03/14/18 10:07 03/14/18 10:07 03/14/18 10:07 03/14/18 10:07 03/14/18 10:07 Exam: AAO x 3, in NAD HEENT: NC/AT, PERRL Neck: Supple, no JVD Lungs: CTA b/l, left chest wall tenderness d/t rib fracture Heart: S1S2, RRR Abd: Soft, NT Ext: B/L heel ulcer Neuro: Decreased sensation on both feet. - Assessment and Plan (1) CHOLE (obstructive sleep apnea) Current Visit: Yes Status: Acute Assessment and Plan: Cont CPAP during night (2) Morbid obesity Current Visit: Yes Status: Acute Assessment and Plan: Need lifestyle modification as outpatient. (3) Heel ulcer Current Visit: Yes Status: Acute Assessment and Plan: Pt has DM neuropathy. Has b/l heels ulcer. Consider DM foot ulcer. - Pt doesn't show systemic symptoms, no fever or leukocytosis. - X-ray shows cellulitis, no gas identified. - Place pt on vanco and zosyn - Blood and wound culture send by ER - Podiatry saw pt, will follow further recommendation. - Not meet sepsis criteria now. (4) DVT prophylaxis Current Visit: No Status: Acute Assessment and Plan: Heparin SC (5) Fracture of three ribs of left side Current Visit: No Status: Acute Assessment and Plan: Cont pain control as needed. (6) Alcohol abuse Current Visit: No Status: Chronic Assessment and Plan: No signs of withdraw, cont CIWA protocol. Banana bags iv x 3 (7) COPD (chronic obstructive pulmonary disease) Current Visit: No Status: Chronic Assessment and Plan: Stable, no wheezing, cont home meds. (8) Diabetes mellitus Current Visit: No Status: Chronic Assessment and Plan: Place pt on SSI (9) HTN (hypertension) Current Visit: No Status: Chronic Assessment and Plan: Cont home meds. (10) Tobacco abuse Current Visit: No Status: Chronic Assessment and Plan: Smoking cessation education. Place pt on nicotine patch. DVT Prophylaxis: Heparin SC - Time Spent with Patient Total time spent is greater than 50% in coordination of care (as documented) at patient's floor/unit and/or counseling patient: 40 min Greater than 35 minutes Plan of Care Discussed with: patient Internal Medicine: Result - Labs CBC & Chem 7: 03/14/18 03:54 03/14/18 03:54 Labs: Short CBC 03/13/18 03/14/18 Range/Units 12:35 03:54 WBC 9.4 8.1 (4.3-11.1) K/mcL Hgb 13.4 11.8 L D (12.9-16.9) g/dL Hct 40.5 36.2 L (37.5-50.1) % Plt Count 146 119 L (140-400) K/mcL Neutrophils # 6.0 4.8 (1.6-8.9) K/mcL BMP 03/13/18 03/14/18 12:35 03:54 Sodium 139 135 L Potassium 4.3 4.0 Chloride 103 103 Carbon Dioxide 30 H 27 BUN 16 15 Creatinine 0.76 0.74 Glucose 48 L 112 H Calcium 9.5 9.1 - ABG Interpretation ABG results: PT/INR, D-dimer PT 15.2 Seconds (9.4-12.1) H 03/14/18 03:54 - Impressions Impressions Foot X-Ray 03/13/18 12:34 IMPRESSION: Chronic changes within the left great toe. Nonspecific soft tissue swelling about the foot and heel without definite gas collection, foreign body, or evident deep skin ulceration. Cellulitis is suspected. No plain film evidence to suggest osteomyelitis. D/ / Ryan Mai MD / Ryan Mai MD Interpreting Provider: Ryan Mai MD Foot X-Ray 03/13/18 12:35 IMPRESSION: No discrete heel ulcer is visualized and likely related to technique.. Mild dorsal soft tissue swelling. No other acute osseous abnormality. D/ / 03/13/2018 13:27:55 Vira Muhammad MD / lizeth Interpreting Provider: Vira Muhammad MD Consult Discharge Plan - Plan Referrals: Froylan Guido MD [Primary Care Provider] - (3) Heel ulcer Qualifiers: Laterality: right Non-pressure ulcer stage: limited to breakdown of skin Qualified Code(s): L97.411 - Non-pressure chronic ulcer of right heel and midfoot limited to breakdown of skin (5) Fracture of three ribs of left side Qualifiers: Encounter type: subsequent encounter Fracture type: closed Fracture healing: with routine healing Qualified Code(s): S22.42XD - Multiple fractures of ribs, left side, subsequent encounter for fracture with routine healing (7) COPD (chronic obstructive pulmonary disease) Qualifiers: COPD type: unspecified COPD Qualified Code(s): J44.9 - Chronic obstructive pulmonary disease, unspecified (8) Diabetes mellitus Qualifiers: Diabetes mellitus type: type 2 Diabetes mellitus sausage wrapper insulin use: without residential use Diabetes mellitus complication status: with skin complications Diabetes mellitus complication detail: with foot ulcer Qualified Code(s): E11.621 - Type 2 diabetes mellitus with foot ulcer; L97.509 - Non- pressure chronic ulcer of other part of unspecified foot with unspecified severity (9) HTN (hypertension) Qualifiers: Hypertension type: essential hypertension Qualified Code(s): I10 - Essential (primary) hypertension
[2018-03-14] MEDS: Nicotine 21 MG PATCH.TD24 TD SCH (14:37)
[2018-03-14] MEDS: Thiamine (B-1) 100 MG, Folic Acid 1 MG, MVI, adult with vitamin K 10 ML in 0.9 % Sodi... IVPB SCH (17:45)
[2018-03-14] MEDS: traZODone 50 MG TABLET PO SCH (20:39)
--- NOTE | 2018-03-14 23:15 | Anesthesia Evaluation PreOp ---
<Sue Puente - Last Filed: 03/14/18 23:13> Date of Encounter: 03/14/18 Time of Encounter: 23:13 - Past History Planned Operation: Alonso heel prep, wound vac and graft Cardiac History: HTN, Hyperlipidemia Pulmonary History: Smoker, COPD [employer] History: Denies Any Significant HX Other Medical History: Diabetes Type II, GERD, Other (BMI 44) Anesthesia History: No Prior Anesthetic Complications, Past Anesthesia (L toe I and D) Alcohol Use: heavy Drug use: none Medications and Allergies Albuterol Sulfate [Albuterol Inhaler] 2 puff IH Q4HR PRN 04/06/16 [History] Metoprolol Succinate 100 mg PO BID 04/06/16 [History] Multivitamin [Multi-Day Vitamins] 1 tab PO DAILY 04/06/16 [History] [place]-3/Dha/Epa/Fish Oil [Fish Oil 1,000 mg Softgel] 2 cap PO BID 04/06/16 [History] Omeprazole [PriLOSEC] 40 mg PO DAILY 04/06/16 [History] Quinapril HCl [Accupril] 40 mg PO DAILY 04/06/16 [History] glipiZIDE [Glipizide] 10 mg PO BID 04/06/16 [History] hydroCHLOROthiazide [Hydrochlorothiazide] 25 mg PO DAILY 04/06/16 [History] Meloxicam 15 mg PO DAILY 06/01/16 [History] Ibuprofen [Motrin] 600 mg PO BID PRN 12/21/16 [History] Loratadine [Claritin] 10 mg PO DAILY 12/21/16 [History] Pregabalin [Lyrica] 150 mg PO TID 12/21/16 [History] diazePAM [Valium] 10 mg PO Q6HR PRN 09/05/17 [History] OxyCODONE/APAP 5/325 [Percocet 5/325 MG] 1 each PO Q6HR PRN 2 Days #8 tablet 02/25/18 [Rx] Atorvastatin [Lipitor] 40 mg PO HS 03/13/18 [History] Collagenase Oint [Santyl] 1 appl TP DAILY 03/13/18 [History] DULoxetine [Cymbalta] 30 mg PO BID 03/13/18 [History] Fluticasone Propionate Nasal [Flonase] 1 spr NS DAILY 03/13/18 [History] metFORMIN [Glucophage] 500 mg PO BIDWM 03/13/18 [History] risperiDONE [Risperdal] 2 mg PO BID 03/13/18 [History] traZODone [TraZODone] 50 mg PO HS 03/13/18 [History] Allergy/AdvReac Type Severity Reaction Status Date / Time hydrocodone [From Vicodin] AdvReac Severe Nausea Verified 02/25/18 14:08 cephalexin [From Keflex] AdvReac Vomiting Verified 02/25/18 14:08 codeine AdvReac Confusion Verified 02/25/18 14:08 morphine AdvReac Rash Verified 02/25/18 14:08 - Meds/Allergy Pre-op Review Medications Reviewed: Yes Allergies Reviewed: Yes Beta Blockers on Current Med List: Yes Anesthesia Results - Labs 03/14/18 03:54 03/14/18 03:54 Anesthesia Exam Vital Signs/O2 Sat, Most Current Temp Pulse Resp BP Pulse Ox 98.1 F 84 16 109/57 93 03/14/18 19:20 03/14/18 19:20 03/14/18 19:20 03/14/18 19:20 03/14/18 19:20 Weight: 139kg NPO (# of Hours): MN - HEENT Pupil (Motor): Pupils equal, EOMI Mallampati: III Teeth: Poor dentition Oral Opening: Greater than 3 - [employer] LOC: Oriented [employer] Motor: Normal RUE, Normal LUE, Normal RLE, Normal LLE, Normal Face - Cardiac Rhythm: Regular - Pulmonary Breath Sounds: bilateral Clear Respiratory Effort: Symmetrical Anesthesia Assess/Plan ASA Score: 3 Modified Toya Scale for Level of Consciousness: Cooperative, oriented, and tranquil Anesthetic Plan: General, MAC Monitoring Plan: Standard Monitors Recovery Plan: PACU <Barron Salamanca - Last Filed: 03/15/18 14:47> - Past History Pulmonary History: CHLOE Dx (CPAP 16), Other (3 cracked ribs on right) Anesthesia Results - Labs 03/15/18 01:12 03/15/18 01:12 - Imaging EKG: report reviewed Anesthesia Exam - Cardiac Murmur: None - Pulmonary Breath Sounds: bilateral Clear Respiratory Effort: Symmetrical
[2018-03-15 01:39] LABS: Basophils % 0.5 %; Eosinophils # 0.1 K/mcL (0.0-0.6); Eosinophils % 1.1 %; Hematocrit 34.9 % (37.5-50.1); Hemoglobin 11.5 g/dL (12.9-16.9); Immature Granulocytes % 0.2 % (0-4); Lymphocytes % 24.7 %; Mean Corpuscular Hemoglobin 32.3 pg (28.0-33.3); Mean Platelet Volume 9.6 fL (9.4-12.4); Monocytes # 1.3 K/mcL (0.0-1.3); Monocytes % 16.1 %; Neutrophils # 4.7 K/mcL (1.6-8.9); Platelet Count 127 K/mcL (140-400); Red Blood Count 3.56 M/mcL (4.19-5.50); Red Cell Distribution Width 12.9 % (11.5-14.5); Segmented Neutrophils % 57.4 %
[2018-03-15 01:58] LABS: BUN/Creatinine Ratio 15 (6-26); Blood Urea Nitrogen 11 mg/dL (6-20); Calcium 8.9 mg/dL (8.6-10.3); Carbon Dioxide 27 mEq/L (23-29); Chloride 99 mEq/L (98-107); Glucose 141 mg/dL (70-105); Osmolality,Calculated 286 (280-300); Potassium 3.7 mEq/L (3.5-5.1); Sodium 137 mEq/L (136-145); eGFR For Non-African Americans > 60 (> 60)
[2018-03-15] MEDS: Piperacillin/Tazobactam 3.375 GM in 0.9 % Sodium Chloride Mini Bag 100 ML IVPB SCH ×3 (05:08→22:18)
[2018-03-15] MEDS ORDERED: Vancomycin 1,000 MG, 0.9 % Sodium Chloride 1,000 ML IR ONE ×2 (06:00→18:16)
[2018-03-15] MEDS: *HR* Heparin 5,000 UNIT/ML VIAL SQ SCH (06:12)
[2018-03-15] MEDS: Insulin LISPRO 300 UNITS/3 ML VIAL SQ SCH ×3 (07:59→21:35)
[2018-03-15] MEDS: hydroCHLOROthiazide 25 MG TABLET PO SCH (08:32)
[2018-03-15] MEDS: Pregabalin 75 MG CAPSULE PO SCH ×3 (08:32→21:34)
[2018-03-15] MEDS: risperiDONE 1 MG TABLET PO SCH ×2 (08:32→21:32)
[2018-03-15] MEDS: Lisinopril 20 MG TABLET PO SCH (08:32)
[2018-03-15] MEDS: Fluticasone Propionate Nasal 50 MCG/SPRAY BOTTLE NS SCH (08:33)
[2018-03-15] MEDS: *HR* OxyCODONE/APAP 5/325 TABLET PO PRN ×2 (08:41→18:48)
[2018-03-15] MEDS ORDERED: 0.9 % Sodium Chloride 1,000 ML IVC SCH (13:15)
[2018-03-15] MEDS: Nicotine 21 MG PATCH.TD24 TD SCH (13:47)
[2018-03-15] MEDS ORDERED: Bupivacaine/EPI 1:200k 0.25%PF 30 ML VIAL ONE (14:08)
[2018-03-15] MEDS ORDERED: *HR* FentaNYL (PF) 100 MCG/2 ML VIAL ONE (14:22)
[2018-03-15] MEDS ORDERED: *HR* Midazolam HCl 2 MG/2 ML VIAL ONE (14:22)
[2018-03-15] MEDS ORDERED: *HR* Propofol 200 MG/20 ML VIAL IVP ONE (14:23)
[2018-03-15] MEDS ORDERED: *HR* Succinylcholine 200 MG/10 ML VIAL IVP ONE (14:26)
[2018-03-15] MEDS ORDERED: Propofol 500 MG/50 ML INFUS..BTL ONE (15:02)
[2018-03-15] MEDS ORDERED: KETAMINE HCL 50 MG/ML SYRINGE IV ONE (15:09)
[2018-03-15] MEDS ORDERED: Naloxone 0.4 MG/ML INJ IVP PRN (18:16)
[2018-03-15] MEDS ORDERED: *HR* Dextrose 50 % in Water (Syg) 50 ML SYRINGE IVP PRN (18:16)
[2018-03-15] MEDS ORDERED: Dextrose Gel 15 GM/37.5 ML TUBE PO PRN ×2 (18:16)
[2018-03-15] MEDS ORDERED: *HR* LORazepam 2 MG/ML VIAL IVP PRN ×3 (18:16)
[2018-03-15] MEDS ORDERED: D5% in Water 1,000 ML IVC PRN (18:16)
[2018-03-15] MEDS ORDERED: Acetaminophen 325 MG TABLET PO PRN (18:16)
[2018-03-15] MEDS: 0.9 % Sodium Chloride 1,000 ML IVC SCH (18:48)
[2018-03-15] MEDS ORDERED: Thiamine (B-1) 100 MG, Folic Acid 1 MG, MVI, adult with vitamin K 10 ML in 0.9 % Sodi... IVPB SCH (19:00)
--- NOTE | 2018-03-15 19:20 | Podiatry Progress Note ---
Date of Encounter: 03/15/18 Time of Encounter: 06:30 - Assessment and Plan (1) Heel ulcer due to DM Current Visit: Yes Status: Acute Reviewed with patient his condition, my findings, and his treatment options. We discussed the wounds and wound healing and importance of nutrition as well as control of his diabetes and smoking cessation. Encouraged smoking cessation and discussed the detrimental effects of smoking on wound healing. Discussed longer he has open wounds the more risky is for developing infection which could get into the bone or travel up his leg and cause him to have to have an amputation of his leg. Patient wants to proceed with surgical intervention to try to help these wounds to heal. Nature of the procedure, risks versus benefits potential complications consequences of surgery and his condition discussed at length. No guarantees made as to the outcome. Patient understood he will still have a wound to heal. Patient being brought to the operating room for surgical preparation of wound bed of bilateral heels for graft placement, placement of graft possible application of wound VAC and bone biopsy of bilateral heels. All his questions have been answered and informed consent was signed patient scheduled for OR later today. Qualifiers: Diabetes mellitus type: type 2 Laterality: left Non-pressure ulcer stage: unspecified non-pressure ulcer stage Qualified Code(s): E11.621 - Type 2 diabetes mellitus with foot ulcer; L97.429 - Non-pressure chronic ulcer of left heel and midfoot with unspecified severity Subjective Interval history: 47 year old diabetic male patient known to dr. daly admitted with bilateral heel wounds. says wounds have been present for more than a month. receiving IV antibiotics. patient is reported to be alcoholic. Objective - Vital Signs Vital Signs: Vital Signs Temp Pulse Resp BP Pulse Ox 03/15/18 11:20 98.7 F 93 18 156/90 93 03/15/18 08:08 84 18 161/90 90 03/15/18 04:30 98.7 F 69 15 124/69 94 03/15/18 04:21 16 93 03/14/18 23:54 21 94 03/14/18 19:20 98.1 F 84 16 109/57 93 03/14/18 13:57 98.0 F 83 16 129/79 92 Intake and Output 03/14/18 03/15/18 03/15/18 23:59 07:59 15:59 Intake Total 840 / 840 1111.2 / 1111.2 Output Total 1000 / 1000 650 / 650 Balance -160 / -160 461.2 / 461.2 Intake: IV Fluids 600 / 600 1111.2 / 1111.2 Zosyn 3.375 GM In 0.9 % Sodium 100 / 100 100 / 100 Chloride (Mini-Bag +) 100 ML @ 25 mls/hr IVPB Q8H [facility] Rx#: [id number] Vitamin B-1 100 MG Folvite 1 MG 511.2 / 511.2 M.v.i. Adult 10 ml In 0.9 % Sodium Chloride 500 ML @ 85.2 mls/hr IVPB DAILY@1800 [facility] Rx#: [id number] Vancocin 2,000 MG In 0.9 % 500 / 500 500 / 500 Sodium Chloride 500 ML @ 250 mls/hr IVPB Q12H [facility] Rx#: [id number] Oral 240 / 240 0 / 0 Output: Urine 1000 / 1000 650 / 650 Other: Meal Dinner NPO LUNCH Percent of Meal Consumed 75% # Voids 1 Weight 139.3 kg Blood Glucose* 154 121 161 Patient Weight 03/15/18 23:59 Weight 139.3 kg - Exam Exam: b/l heel wounds with eschar. feet warm to to touch. CFT less than 3 seconds of digits on bilateral feet. pain with palpation bilateral heels. Diminished protective sensation. - Lab Result Diagrams: 03/15/18 01:12 03/15/18 01:12 Labs: Abnormal lab results RBC 3.56 M/mcL (4.19-5.50) L 03/15/18 01:12 Hgb 11.5 g/dL (12.9-16.9) L 03/15/18 01:12 Hct 34.9 % (37.5-50.1) L 03/15/18 01:12 Plt Count 127 K/mcL (140-400) L 03/15/18 01:12 ESR 80 mm/hr (0-10) H 03/13/18 12:35 PT 15.2 Seconds (9.4-12.1) H 03/14/18 03:54 Glucose 141 mg/dL (70-105) H 03/15/18 01:12 POC Glucose 154 mg/dL (70-99) H 03/14/18 20:36 C-Reactive Protein 54 mg/L (Less than 10) H 03/13/18 12:35 Vancomycin Trough 15 mcg/mL (5-10) H 03/15/18 01:12 Microbiology, Last 48 Hours 03/13/18 12:35 Blood Culture - Preliminary Peripheral Venipuncture Culture is incubating and being continuously monitored for growth. Final report to follow. 03/13/18 13:00 Blood Culture - Preliminary Peripheral Venipuncture Culture is incubating and being continuously monitored for growth. Final report to follow. Consult Discharge Plan - Plan Referrals: Froylan Guido MD [Primary Care Provider] -
--- NOTE | 2018-03-15 19:30 | Internal Med Progress Note ---
Hospitalist Progress Note - Encounter Date of Encounter: 03/15/18 Time of Encounter: 09:00 - Subjective Interval History: Pt laying on bed comfortably. C/O lmouth dry (on NPO for surgery). No fever. Denies headache/nausea/tremor. - Exam Vitals: Temp Pulse Resp BP Pulse Ox 98.7 F 93 18 156/90 93 03/15/18 11:20 03/15/18 11:20 03/15/18 11:20 03/15/18 11:20 03/15/18 11:20 Exam: AAO x 3, in NAD HEENT: NC/AT, PERRL Neck: Supple, no JVD Lungs: CTA b/l, left chest wall tenderness d/t rib fracture Heart: S1S2, RRR Abd: Soft, NT Ext: B/L heel ulcer Neuro: Decreased sensation on both feet. - Assessment and Plan (1) CHLOE (obstructive sleep apnea) Current Visit: Yes Status: Acute Assessment and Plan: Cont CPAP during night (2) Morbid obesity Current Visit: Yes Status: Acute Assessment and Plan: Need lifestyle modification as outpatient. (3) Heel ulcer Current Visit: Yes Status: Acute Assessment and Plan: Pt has DM neuropathy. Has b/l heels ulcer. Consider DM foot ulcer. - Pt doesn't show systemic symptoms, no fever or leukocytosis. - X-ray shows cellulitis, no gas identified. - Place pt on vanco and zosyn - Blood and wound culture send by ER - Podiatry saw pt, will follow further recommendation. - Not meet sepsis criteria now. (4) DVT prophylaxis Current Visit: No Status: Acute Assessment and Plan: Heparin SC (5) Fracture of three ribs of left side Current Visit: No Status: Acute Assessment and Plan: Cont pain control as needed. (6) Alcohol abuse Current Visit: No Status: Chronic Assessment and Plan: No signs of withdraw, cont CIWA protocol. Banana bags iv x 3 (7) COPD (chronic obstructive pulmonary disease) Current Visit: No Status: Chronic Assessment and Plan: Stable, no wheezing, cont home meds. (8) Diabetes mellitus Current Visit: No Status: Chronic Assessment and Plan: Place pt on SSI (9) HTN (hypertension) Current Visit: No Status: Chronic Assessment and Plan: Cont home meds. (10) Tobacco abuse Current Visit: No Status: Chronic Assessment and Plan: Smoking cessation education. Place pt on nicotine patch. DVT Prophylaxis: Heparin SC - Time Spent with Patient Total time spent is greater than 50% in coordination of care (as documented) at patient's floor/unit and/or counseling patient: 40 min Greater than 35 minutes Plan of Care Discussed with: patient Internal Medicine: Result - Labs CBC & Chem 7: 03/15/18 01:12 03/15/18 01:12 Labs: Short CBC 03/15/18 Range/Units 01:12 WBC 8.3 (4.3-11.1) K/mcL Hgb 11.5 L (12.9-16.9) g/dL Hct 34.9 L (37.5-50.1) % Plt Count 127 L (140-400) K/mcL Neutrophils # 4.7 (1.6-8.9) K/mcL BMP 03/15/18 01:12 Sodium 137 Potassium 3.7 Chloride 99 Carbon Dioxide 27 BUN 11 Creatinine 0.71 Glucose 141 H Calcium 8.9 - ABG Interpretation ABG results: PT/INR, D-dimer PT 15.2 Seconds (9.4-12.1) H 03/14/18 03:54 Consult Discharge Plan - Plan Referrals: Froylan Guido MD [Primary Care Provider] - (3) Heel ulcer Qualifiers: Laterality: right Non-pressure ulcer stage: limited to breakdown of skin Qualified Code(s): L97.411 - Non-pressure chronic ulcer of right heel and midfoot limited to breakdown of skin (5) Fracture of three ribs of left side Qualifiers: Encounter type: subsequent encounter Fracture type: closed Fracture healing: with routine healing Qualified Code(s): S22.42XD - Multiple fractures of ribs, left side, subsequent encounter for fracture with routine healing (7) COPD (chronic obstructive pulmonary disease) Qualifiers: COPD type: unspecified COPD Qualified Code(s): J44.9 - Chronic obstructive pulmonary disease, unspecified (8) Diabetes mellitus Qualifiers: Diabetes mellitus type: type 2 Diabetes mellitus fdc insulin use: without fdc use Diabetes mellitus complication status: with skin complications Diabetes mellitus complication detail: with foot ulcer Qualified Code(s): E11.621 - Type 2 diabetes mellitus with foot ulcer; L97.509 - Non- pressure chronic ulcer of other part of unspecified foot with unspecified severity (9) HTN (hypertension) Qualifiers: Hypertension type: essential hypertension Qualified Code(s): I10 - Essential (primary) hypertension
--- NOTE | 2018-03-15 19:35 | Operative Note ---
Date of procedure: 03/15/18 Pre-op diagnosis: bilateral heel wounds Post-op diagnosis: same Procedure: surgical preparation of bilateral heel wounds for graft application of graft bone biopsy bilateral calcaneus application of PRP Implants: PuraPly 5x5cm graft x 2 Complications: none Anesthesia: GETA Local Anesthetics: 1% Lidocaine HCL SubQ (cc) Surgeon: Tomas Bower Was there an social services assistant present: No Estimated blood loss (cc): 100 Specimen: micro- right and left heel ulcer and bone, path- Condition: stable Disposition: PACU Procedure in Detail: Indications: 47-year-old alcoholic diabetic male with bilateral heel wounds with cellulitis admitted to the hospital, the left measuring 7 cm x 4 cm x 0.4 cm and the right measuring 5 cm x 4 cm x 0.4 cm. At the time of the surgery and cellulitis had significantly decreased. Patient being brought to the operating room for preparation of wounds for graft and graft placement as well as bone biopsy. Patient refused wound VAC at the time of the surgery and preoperative holding. Nature of the above procedures, risks versus benefits potential complications consequences of surgery and his condition were discussed at length. The effusion team obtain the patient's blood preoperatively in the holding area and was spun to PRP to be utilized on the wounds. All of his questions have been answered and the informed consent was signed. Patient was brought [facility] operating room placed on operating room table in the supine position. Feet were appropriately bumped and scrubbed prepped and draped in the usual sterile fashion. 1% lidocaine plain was injected into the right and left foot. Following procedures then began. Surgical preparation of wound bed for graft and application of graft right and left foot. Attention was directed to the patient's left lateral heel are #15 blade was used to sharply excise the eschar and prepare the wound bed for graft. A curet and Misonex was also utilized to prepare the wound bed for the graft u ntil all the eschar was removed and the base was without any devitalized tissue and all tissue at the wound base was viable. There was adequate hemostasis present. The same preparation for the graft was used for the right heel wound removing eschar and nonviable tissue until healthy viable tissue was present in the wound was adequately prepared for graft placement. Tissue removed from the right and left heel ulcerations was sent to microbiology. The pulse lavage with vancomycin was utilized to irrigate the prepared wound bed sites. Next 5 x 5 cm PuraPly graft was applied to the left and right heel wounds and PRP applied to the wounds as well. Adequate hemostasis was present at the time of application of the graft. The graft was anchored with Steri-Strips to the wound and covered with Adaptic. The graft was in excellent approximation with the wound bed. Bone biopsy right and left calcaneus. The [facility] needle was inserted at a site dorsal to the wound in an area where no cellulitis was present 3 small stab incision and bone from the calcaneus was obtained and sent to microbiology and pathology. Adequate hemostasis was present. Postoperative bandaging included 4 x 4 gauze Kerlix and Ranjit wraps on both heels. Continue with heel protector offloading boots. A she will return to the floor where he will continue IV antibiotics.
[2018-03-15] MEDS ORDERED: Metoprolol XL (24 HR) Succ 50 MG TAB.ER.24H PO SCH (21:00)
[2018-03-15] MEDS: traZODone 50 MG TABLET PO SCH (21:33)
[2018-03-15] MEDS: Metoprolol XL (24 HR) Succ 50 MG TAB.ER.24H PO SCH (21:33)
[2018-03-16 04:09] LABS: Basophils % 0.4 %; Eosinophils # 0.1 K/mcL (0.0-0.6); Hematocrit 33.1 % (37.5-50.1); Immature Granulocytes % 0.3 % (0-4); Lymphocytes # 1.6 K/mcL (0.6-4.6); Lymphocytes % 17.7 %; Mean Corpuscular HGB Conc 33.2 g/dL (31.6-35.5); Mean Corpuscular Hemoglobin 32.8 pg (28.0-33.3); Mean Corpuscular Volume 98.8 fL (83.0-100.0); Mean Platelet Volume 9.6 fL (9.4-12.4); Monocytes # 1.5 K/mcL (0.0-1.3); Monocytes % 16.6 %; Neutrophils # 5.8 K/mcL (1.6-8.9); Platelet Count 116 K/mcL (140-400); Red Blood Count 3.35 M/mcL (4.19-5.50)
[2018-03-16 04:33] LABS: Calcium 8.4 mg/dL (8.6-10.3); Potassium 4.1 mEq/L (3.5-5.1)
[2018-03-16] MEDS: 0.9 % Sodium Chloride 1,000 ML IVC SCH (05:58)
[2018-03-16] MEDS: Piperacillin/Tazobactam 3.375 GM in 0.9 % Sodium Chloride Mini Bag 100 ML IVPB SCH ×2 (05:59→17:32)
[2018-03-16] MEDS: *HR* Heparin 5,000 UNIT/ML VIAL SQ SCH ×3 (06:00→17:34)
[2018-03-16] MEDS ORDERED: Aminoglycoside Consult 1 EACH MC ONE (07:16)
[2018-03-16] MEDS: *HR* OxyCODONE/APAP 5/325 TABLET PO PRN ×3 (08:11→21:22)
[2018-03-16] MEDS: Insulin LISPRO 300 UNITS/3 ML VIAL SQ SCH ×5 (08:12→22:37)
[2018-03-16] MEDS: Pregabalin 75 MG CAPSULE PO SCH ×3 (08:13→21:21)
[2018-03-16] MEDS: risperiDONE 1 MG TABLET PO SCH ×2 (08:13→21:21)
[2018-03-16] MEDS: Metoprolol XL (24 HR) Succ 50 MG TAB.ER.24H PO SCH ×2 (08:13→21:21)
[2018-03-16] MEDS: Multivit/Ca/Min/Fe/FA 1 TAB TABLET PO SCH (08:13)
[2018-03-16] MEDS: Fluticasone Propionate Nasal 50 MCG/SPRAY BOTTLE NS SCH (08:14)
[2018-03-16] MEDS ORDERED: hydroCHLOROthiazide 25 MG TABLET PO SCH (09:00)
[2018-03-16] MEDS ORDERED: Lisinopril 20 MG TABLET PO SCH (09:00)
[2018-03-16] MEDS ORDERED: Multivit/Ca/Min/Fe/FA 1 TAB TABLET PO SCH (09:00)
--- NOTE | 2018-03-16 14:15 | Internal Med Progress Note ---
Hospitalist Progress Note - Encounter Date of Encounter: 03/16/18 Time of Encounter: 09:00 - Subjective Interval History: Pt sitting in chair comfortably. Had grafting/biopsy by podiatry yesterday. Low fever 99.9 in the morning. Denies headache/nausea/tremor. - Exam Vitals: Temp Pulse Resp BP Pulse Ox 98.4 F 74 18 107/65 92 03/16/18 11:00 03/16/18 11:00 03/16/18 11:00 03/16/18 11:00 03/16/18 11:00 Exam: AAO x 3, in NAD HEENT: NC/AT, PERRL Neck: Supple, no JVD Lungs: CTA b/l, left chest wall tenderness d/t rib fracture Heart: S1S2, RRR Abd: Soft, NT Ext: B/L heel ulcer Neuro: Decreased sensation on both feet. - Assessment and Plan (1) CHLOE (obstructive sleep apnea) Current Visit: Yes Status: Acute Assessment and Plan: Cont CPAP during night (2) Morbid obesity Current Visit: Yes Status: Acute Assessment and Plan: Need lifestyle modification as outpatient. (3) Heel ulcer Current Visit: Yes Status: Acute Assessment and Plan: Pt has DM neuropathy. Has b/l heels ulcer. Consider DM foot ulcer. - Pt doesn't show systemic symptoms, no fever or leukocytosis. - X-ray shows cellulitis, no gas identified. - Cont zosyn, change vanco to linezolid as renal function getting worse. - Blood and wound culture send by ER - Bone biopsy sent by podiatry - Podiatry saw pt, will follow further recommendation. - Not meet sepsis criteria now. (4) DVT prophylaxis Current Visit: No Status: Acute Assessment and Plan: Heparin SC (5) Fracture of three ribs of left side Current Visit: No Status: Acute Assessment and Plan: Cont pain control as needed. (6) Alcohol abuse Current Visit: No Status: Chronic Assessment and Plan: No signs of withdraw, cont CIWA protocol. Banana bags iv x 3 (7) COPD (chronic obstructive pulmonary disease) Current Visit: No Status: Chronic Assessment and Plan: Stable, no wheezing, cont home meds. (8) Diabetes mellitus Current Visit: No Status: Chronic Assessment and Plan: Place pt on SSI (9) HTN (hypertension) Current Visit: No Status: Chronic Assessment and Plan: Cont home meds. Hold lisinopril and HCTZ b/o BETH (10) Tobacco abuse Current Visit: No Status: Chronic Assessment and Plan: Smoking cessation education. Place pt on nicotine patch. (11) Acute renal failure Current Visit: Yes Status: Acute Assessment and Plan: Increased Cr to 2.13. Possibly multiple factorial including vanco use, infection, on ACEI and HCTZ. - Hold vanco, change to linezolid - Dosing zosyn per renal function. - Hold lisinopril and HCTZ - Cont ivf with NS at 100ml per hour. - Avoid nephrotoxic medications. - Closely follow up renal function, if no improve or getting worse, consider n ephro consult. - Strict I/O DVT Prophylaxis: Heparin SC - Time Spent with Patient Total time spent is greater than 50% in coordination of care (as documented) at patient's floor/unit and/or counseling patient: 30 min 25 - 35 minutes Plan of Care Discussed with: patient Internal Medicine: Result - Labs CBC & Chem 7: 03/16/18 03:38 03/16/18 03:38 Labs: Short CBC 03/16/18 Range/Units 03:38 WBC 9.0 (4.3-11.1) K/mcL Hgb 11.0 L (12.9-16.9) g/dL Hct 33.1 L (37.5-50.1) % Plt Count 116 L (140-400) K/mcL Neutrophils # 5.8 (1.6-8.9) K/mcL BMP 03/16/18 03:38 Sodium 136 Potassium 4.1 Chloride 104 Carbon Dioxide 25 BUN 20 Creatinine 2.13 H Glucose 139 H Calcium 8.4 L - ABG Interpretation ABG results: PT/INR, D-dimer PT 15.2 Seconds (9.4-12.1) H 03/14/18 03:54 - Impressions Impressions Foot X-Ray 03/13/18 12:35 IMPRESSION: No discrete heel ulcer is visualized and likely related to technique.. Mild dorsal soft tissue swelling. No other acute osseous abnormality. D/ / 03/13/2018 13:27:55 Vira Muhammad MD / lizeth Interpreting Provider: Vira Muhammad MD Consult Discharge Plan - Plan Referrals: Froylan Guido MD [Primary Care Provider] - (3) Heel ulcer Qualifiers: Laterality: unspecified laterality Non-pressure ulcer stage: limited to breakdown of skin Qualified Code(s): L97.401 - Non-pressure chronic ulcer of unspecified heel and midfoot limited to breakdown of skin (5) Fracture of three ribs of left side Qualifiers: Encounter type: subsequent encounter Fracture type: closed Fracture healing: with routine healing Qualified Code(s): S22.42XD - Multiple fractures of ribs, left side, subsequent encounter for fracture with routine healing (7) COPD (chronic obstructive pulmonary disease) Qualifiers: COPD type: unspecified COPD Qualified Code(s): J44.9 - Chronic obstructive pulmonary disease, unspecified (8) Diabetes mellitus Qualifiers: Diabetes mellitus type: type 2 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 mellitus terminal operations manager insulin use: without long-term use Diabetes mellitus complication status: with skin complications Diabetes mellitus complication detail: with foot ulcer Qualified Code(s): E11.621 - Type 2 diabetes mellitus with foot ulcer; L97.509 - Non- pressure chronic ulcer of other part of unspecified foot with unspecified kiana rity (9) HTN (hypertension) Qualifiers: Hypertension type: essential hypertension Qualified Code(s): I10 - Essential (primary) hypertension (11) Acute renal failure Qualifiers: Acute renal failure type: with other specified pathological lesion Qualified Code(s): N17.8 - Other acute kidney failure
[2018-03-16] MEDS: Nicotine 21 MG PATCH.TD24 TD SCH (14:48)
[2018-03-16] MEDS: Thiamine (B-1) 100 MG, Folic Acid 1 MG, MVI, adult with vitamin K 10 ML in 0.9 % Sodi... IVPB SCH (15:29)
[2018-03-16] MEDS: traZODone 50 MG TABLET PO SCH (21:21)
[2018-03-17 04:50] LABS: Basophils % 0.4 %; Eosinophils # 0.2 K/mcL (0.0-0.6); Eosinophils % 1.9 %; Hematocrit 33.9 % (37.5-50.1); Hemoglobin 11.2 g/dL (12.9-16.9); Mean Corpuscular Hemoglobin 32.7 pg (28.0-33.3); Mean Corpuscular Volume 99.1 fL (83.0-100.0); Mean Platelet Volume 9.9 fL (9.4-12.4); Monocytes # 1.6 K/mcL (0.0-1.3); Monocytes % 17.1 %; Neutrophils # 5.2 K/mcL (1.6-8.9); Platelet Count 118 K/mcL (140-400); Red Blood Count 3.42 M/mcL (4.19-5.50); Red Cell Distribution Width 13.2 % (11.5-14.5); Segmented Neutrophils % 57.6 %
[2018-03-17 05:00] LABS: Calcium 8.5 mg/dL (8.6-10.3); Potassium 4.8 mEq/L (3.5-5.1)
[2018-03-17] MEDS: Piperacillin/Tazobactam 3.375 GM in 0.9 % Sodium Chloride Mini Bag 100 ML IVPB SCH ×2 (05:43→17:48)
[2018-03-17] MEDS: 0.9 % Sodium Chloride 1,000 ML IVC SCH ×4 (05:45→20:31)
[2018-03-17] MEDS: *HR* Heparin 5,000 UNIT/ML VIAL SQ SCH ×2 (05:46→17:49)
[2018-03-17] MEDS: *HR* OxyCODONE/APAP 5/325 TABLET PO PRN ×2 (08:18→16:07)
[2018-03-17] MEDS: Pregabalin 75 MG CAPSULE PO SCH (08:19)
[2018-03-17] MEDS: Multivit/Ca/Min/Fe/FA 1 TAB TABLET PO SCH (08:19)
[2018-03-17] MEDS: risperiDONE 1 MG TABLET PO SCH ×2 (08:19→20:32)
[2018-03-17] MEDS: Metoprolol XL (24 HR) Succ 50 MG TAB.ER.24H PO SCH ×2 (08:19→20:32)
[2018-03-17] MEDS: Insulin LISPRO 300 UNITS/3 ML VIAL SQ SCH ×4 (08:25→20:33)
[2018-03-17] MEDS: Fluticasone Propionate Nasal 50 MCG/SPRAY BOTTLE NS SCH (09:12)
--- NOTE | 2018-03-17 13:09 | Nephrology Consult Note ---
Date of Encounter: 03/17/18 Time of Encounter: 12:15 Assessment and Plan (1) Acute renal failure Current Visit: Yes Status: Acute Nonoliguric rapid BETH with most likely etiology being a nephrotoxicity with vanco, in the setting of b/l heal wounds, recent fall/rib fractures, obesity, alcohoholism, diabetes. Recommend checking retroperitoneal U/S, starting a renal work up including UA with micro to screen for ATN. Ideally avoid vanco as able, and I also recommend following a renal protective strategy by dosing renally cleared Rx by GFR/CrCl, strict I/Os, daily weights. No urgent HD needed today (Sunday). Will continue to follow with you. Thank you for consulting the [facility]. My colleague Dr. Marin will be on-call starting tomorrow, and I'll be sure to provide a thorough sign-out. Thank you. Qualifiers: Acute renal failure type: with other specified pathological lesion Quali fied Code(s): N17.8 - Other acute kidney failure (2) Cellulitis of left foot due to methicillin-resistant Staphylococcus aureus Current Visit: No Status: Acute per podiatry team (3) Alcohol abuse Current Visit: No Status: Chronic per primary team. He may need an alcohol WD protocol, but I'll defer to the primary team. (4) Diabetes mellitus Current Visit: No Status: Chronic Qualifiers: Diabetes mellitus type: type 2 Diabetes mellitus fpc insulin use: without long term care pharmacist use Diabetes mellitus complication status: with skin complications Diabetes mellitus complication detail: with foot ulcer Qualified Code(s): E11.621 - Type 2 diabetes mellitus with foot ulcer; L97.509 - Non-pressure chronic ulcer of other part of unspecified foot with unspecified severity (5) HTN (hypertension) Current Visit: No Status: Chronic Hold any MARIS or ARB d/t the BETH. Qualifiers: Hypertension type: essential hypertension Qualified Code(s): I10 - Essential (primary) hypertension History of Present Illness - Reason for Consult Consult date: 03/17/18 Acute Kidney Injury Requesting physician: Jewel Russ - Chief Complaint BETH - History of Present Illness Ryan Parish is a 47 y/o morbidly obese WM with a pmh of chronic heavy / daily beer consumption who presented earlier in the week. He has been treated with broad spectrum Abx for his wounds and also has been suffered pain from a recent set of rib fractures s/p fall in a wet bathroom. Nephrology was consulted on Sunday for rapidly worsening SCr. 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 He affirmed that he does drink most beer about "12-15" per day. He denied taking OTC NSAIDs on routine basis. He did not not affirm having a new tremor and has denied N/V/D or dysuria or confusion. FHx: he denied having relatives with ESRD. 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 Psychiatric history: anxiety, depression - Past Surgical History Surgical History: orthopedic, other, other Additional surgical history: graft placement to left plantar foot X5 - Social History Smoking Status: Current every day smoker Smokeless Tobacco Status: No Alcohol use: heavy Drug use: none - Family History Mother Adopted: No Living Status: Still Living Hx Family Cardiac Disorders: Yes Hx Family Respiratory Disorders: Yes Hx Family Cancer: No Hx Family GI Disorders: No Hx Family Endocrine Disorder: No Hx Family Neuromuscular Disorders: No Hx Family Neurologic Disorders: No Hx Family HEENT Disorders: No Hx Family Autoimmune Disorders: No Father Adopted: No Family Member Ethnicity: Non- Living Status: Hx Family Cardiac Disorders: Yes Hx Family Respiratory Disorders: Yes Hx Family Cancer: Yes Hx Family GI Disorders: No Hx Family Endocrine Disorder: Yes Hx Family Neuromuscular Disorders: No Hx Family Neurologic Disorders: No Hx Family HEENT Disorders: No Hx Family Autoimmune Disorders: No Medications and Allergies Albuterol Sulfate [Albuterol Inhaler] 2 puff IH Q4HR PRN 04/06/16 [History] Metoprolol Succinate 100 mg PO BID 04/06/16 [History] Multivitamin [Multi-Day Vitamins] 1 tab PO DAILY 04/06/16 [History] [place]-3/Dha/Epa/Fish Oil [Fish Oil 1,000 mg Softgel] 2 cap PO BID 04/06/16 [History] Omeprazole [PriLOSEC] 40 mg PO DAILY 04/06/16 [History] Quinapril HCl [Accupril] 40 mg PO DAILY 04/06/16 [History] glipiZIDE [Glipizide] 10 mg PO BID 04/06/16 [History] hydroCHLOROthiazide [Hydrochlorothiazide] 25 mg PO DAILY 04/06/16 [History] Meloxicam 15 mg PO DAILY 06/01/16 [History] Ibuprofen [Motrin] 600 mg PO BID PRN 12/21/16 [History] Loratadine [Claritin] 10 mg PO DAILY 12/21/16 [History] Pregabalin [Lyrica] 150 mg PO TID 12/21/16 [History] diazePAM [Valium] 10 mg PO Q6HR PRN 09/05/17 [History] OxyCODONE/APAP 5/325 [Percocet 5/325 MG] 1 each PO Q6HR PRN 2 Days #8 tablet 02/25/18 [Rx] Atorvastatin [Lipitor] 40 mg PO HS 03/13/18 [History] Collagenase Oint [Santyl] 1 appl TP DAILY 03/13/18 [History] DULoxetine [Cymbalta] 30 mg PO BID 03/13/18 [History] Fluticasone Propionate Nasal [Flonase] 1 spr NS DAILY 03/13/18 [History] metFORMIN [Glucophage] 500 mg PO BIDWM 03/13/18 [History] risperiDONE [Risperdal] 2 mg PO BID 03/13/18 [History] traZODone [TraZODone] 50 mg PO HS 03/13/18 [History] Allergy/AdvReac Type Severity Reaction Status Date / Time hydrocodone [From Vicodin] AdvReac Severe Nausea Verified 02/25/18 14:08 cephalexin [From Keflex] AdvReac Vomiting Verified 02/25/18 14:08 codeine AdvReac Confusion Verified 02/25/18 14:08 morphine AdvReac Rash Verified 02/25/18 14:08 Review of Systems All Systems: reviewed and no additional remarkable complaints except as stated Exam - Vital Signs Vital signs: Initial Vital Signs Temp Pulse Resp BP Pulse Ox 98 F 60 18 143/84 97 03/13/18 11:29 03/13/18 11:29 03/13/18 11:29 03/13/18 11:29 03/13/18 11:29 Vital Signs - Last 8 Hours Temp Pulse Resp BP Pulse Ox 03/17/18 10:12 98.2 F 75 16 102/64 90 03/17/18 07:37 98.3 F 84 18 135/64 92 Intake and Output 03/16/18 03/17/18 03/17/18 23:59 07:59 15:59 Intake Total 880 / 880 1711.2 / 1711.2 810 / 810 Output Total 0 / 0 200 / 200 Balance 880 / 880 1511.2 / 1511.2 810 / 810 Intake: IV Fluids 400 / 400 1711.2 / 1711.2 400 / 400 Zyvox Premix 600mg/300mL 600 mg 300 / 300 300 / 300 In 300 ml @ 150 mls/hr IVPB Q12HR [facility] Rx#:[id number] Zosyn 3.375 GM In 0.9 % Sodium 100 / 100 100 / 100 Chloride (Mini-Bag +) 100 ML @ 25 mls/hr IVPB Q12H [facility] Rx#: [id number] Oral 480 / 480 0 / 0 410 / 410 Output: Urine 0 / 0 200 / 200 Other: Meal Dinner Breakfast Percent of Meal Consumed 75% 100% # Voids 1 1 # Bowel Movements 0 0 0 Weight 140.2 kg Blood Glucose* 136 197 185 Patient Weight 03/17/18 23:59 Weight 140.2 kg - General Appearance General appearance: well-developed, well-nourished, appears started age, obese, fatigue EENT: ATNC, PERRL, mucous membranes moist Neck: supple Respiratory: course breath sounds Cardiology: no murmurs, edema (trace ankle edema b/l), regular rate, regular rhythm, normal S1, normal S2 Gastrointestinal: normoactive bowel sounds, no tenderness, no guarding, obese Integumentary: warm and dry Neurologic: no focal deficit, alert and oriented x3 (but slowed thinking) Musculoskeletal: no deformities, no erythema, no cyanosis, no clubbing Psychiatric: mood/affect appropriate, cooperative Results - Lab Results 03/18/18 05:35 03/18/18 05:35 Most recent lab results Calcium 8.5 mg/dL (8.6-10.3) L 03/17/18 04:28 Magnesium 2.1 mg/dL (1.6-2.6) 03/14/18 03:54 I reviewed the labs, vitals, progress notes, imaging and med list. Consult Discharge Plan - Plan Additional Instructions: Follow with Dr. Taylor in wound center. Please call and make appointment prior to D/C. Referrals: Froylan Guido MD [Primary Care Provider] - Sanford Taylor DPM [Partnered Physician] -
--- NOTE | 2018-03-17 13:27 | Internal Med Progress Note ---
Hospitalist Progress Note - Encounter Date of Encounter: 03/17/18 Time of Encounter: 09:00 - Subjective Interval History: Pt sitting in chair comfortably. C/O left rib pain. Had grafting/biopsy by podiatry. No fever overnight. Denies headache/nausea/tremor. - Exam Vitals: Temp Pulse Resp BP Pulse Ox 98.2 F 75 16 102/64 90 03/17/18 10:12 03/17/18 10:12 03/17/18 10:12 03/17/18 10:12 03/17/18 10:12 Exam: AAO x 3, in NAD HEENT: NC/AT, PERRL Neck: Supple, no JVD Lungs: CTA b/l, left chest wall tenderness d/t rib fracture Heart: S1S2, RRR Abd: Soft, NT Ext: B/L heel ulcer, mild leg edema Neuro: Decreased sensation on both feet. - Assessment and Plan (1) CHLOE (obstructive sleep apnea) Current Visit: Yes Status: Acute Assessment and Plan: Cont CPAP during night (2) Morbid obesity Current Visit: Yes Status: Acute Assessment and Plan: Need lifestyle modification as outpatient. (3) Heel ulcer Current Visit: Yes Status: Acute Assessment and Plan: Pt has DM neuropathy. Has b/l heels ulcer. Consider DM foot ulcer. - Pt doesn't show systemic symptoms, no fever or leukocytosis. - X-ray shows cellulitis, no gas identified. - Cont zosyn, change vanco to linezolid as renal function getting worse. - Blood and wound culture send by ER - Bone biopsy sent by podiatry - Podiatry saw pt, will follow further recommendation. - Not meet sepsis criteria now. - Consider consult ID on Sunday for terminal supervisor abx plan (4) DVT prophylaxis Current Visit: No Status: Acute Assessment and Plan: Heparin SC (5) Fracture of three ribs of left side Current Visit: No Status: Acute Assessment and Plan: Cont pain control as needed. (6) Alcohol abuse Current Visit: No Status: Chronic Assessment and Plan: No signs of withdraw, cont CIWA protocol. (7) COPD (chronic obstructive pulmonary disease) Current Visit: No Status: Chronic Assessment and Plan: Stable, no wheezing, cont home meds. (8) Diabetes mellitus Current Visit: No Status: Chronic Assessment and Plan: Place pt on SSI (9) HTN (hypertension) Current Visit: No Status: Chronic Assessment and Plan: Cont home meds. Hold lisinopril and HCTZ b/o BETH. BP is not high. (10) Tobacco abuse Current Visit: No Status: Chronic Assessment and Plan: Smoking cessation education. Place pt on nicotine patch. (11) Acute renal failure Current Visit: Yes Status: Acute Assessment and Plan: Increased Cr to 3.13. Possibly multiple factorial including vanco use, infecti on, on ACEI and HCTZ. - Hold vanco, change to linezolid - Dosing zosyn per renal function. Dose lyrica and risperidone as well per renal function - Hold lisinopril and HCTZ - Cont ivf with NS at 100ml per hour. - Avoid nephrotoxic medications. - Closely follow up renal function. - Strict I/O - Nephro consult appreciated. DVT Prophylaxis: Heparin SC - Time Spent with Patient Total time spent is greater than 50% in coordination of care (as documented) at patient's floor/unit and/or counseling patient: 30 min 25 - 35 minutes Plan of Care Discussed with: patient Internal Medicine: Result - Labs CBC & Chem 7: 03/17/18 04:28 03/17/18 04:28 Labs: Short CBC 03/17/18 Range/Units 04:28 WBC 9.1 (4.3-11.1) K/mcL Hgb 11.2 L (12.9-16.9) g/dL Hct 33.9 L (37.5-50.1) % Plt Count 118 L (140-400) K/mcL Neutrophils # 5.2 (1.6-8.9) K/mcL BMP 03/17/18 04:28 Sodium 138 Potassium 4.8 Chloride 107 Carbon Dioxide 23 BUN 25 H Creatinine 3.13 H Glucose 112 H Calcium 8.5 L - ABG Interpretation ABG results: PT/INR, D-dimer PT 15.2 Seconds (9.4-12.1) H 03/14/18 03:54 Consult Discharge Plan - Plan Referrals: Froylan Guido MD [Primary Care Provider] - (3) Heel ulcer Qualifiers: Laterality: unspecified laterality Non-pressure ulcer stage: limited to breakdown of skin Qualified Code(s): L97.401 - Non-pressure chronic ulcer of unspecified heel and midfoot limited to breakdown of skin (5) Fracture of three ribs of left side Qualifiers: Encounter type: subsequent encounter Fracture type: closed Fracture healing: with routine healing Qualified Code(s): S22.42XD - Multiple fractures of ribs, left side, subsequent encounter for fracture with routine healing (7) COPD (chronic obstructive pulmonary disease) Qualifiers: COPD type: unspecified COPD Qualified Code(s): J44.9 - Chronic obstructive pulmonary disease, unspecified (8) Diabetes mellitus Qualifiers: Diabetes mellitus type: type 2 Diabetes mellitus long-term insulin use: without terminal supervisor use Diabetes mellitus complication status: with skin complications Diabetes mellitus complication detail: with foot ulcer Qualified Code(s): E11.621 - Type 2 diabetes mellitus with foot ulcer; L97.509 - Non- pressure chronic ulcer of other part of unspecified foot with unspecified severity (9) HTN (hypertension) Qualifiers: Hypertension type: essential hypertension Qualified Code(s): I10 - Essential (primary) hypertension (11) Acute renal failure Qualifiers: Acute renal failure type: with other specified pathological lesion Qualified Code(s): N17.8 - Other acute kidney failure
[2018-03-17] MEDS: Nicotine 21 MG PATCH.TD24 TD SCH (16:06)
[2018-03-17] MEDS: traZODone 50 MG TABLET PO SCH (20:34)
[2018-03-18] MEDS: 0.9 % Sodium Chloride 1,000 ML IVC SCH (05:39)
[2018-03-18] MEDS: Piperacillin/Tazobactam 3.375 GM in 0.9 % Sodium Chloride Mini Bag 100 ML IVPB SCH ×2 (05:40→18:34)
[2018-03-18] MEDS: *HR* Heparin 5,000 UNIT/ML VIAL SQ SCH ×2 (05:40→18:34)
[2018-03-18] MEDS: *HR* OxyCODONE/APAP 5/325 TABLET PO PRN ×3 (06:39→20:57)
[2018-03-18 06:42] LABS: Basophils % 0.4 %; Eosinophils # 0.1 K/mcL (0.0-0.6); Eosinophils % 1.7 %; Hematocrit 31.6 % (37.5-50.1); Hemoglobin 10.4 g/dL (12.9-16.9); Immature Granulocytes % 0.4 % (0-4); Lymphocytes # 1.6 K/mcL (0.6-4.6); Lymphocytes % 21.5 %; Mean Corpuscular HGB Conc 32.9 g/dL (31.6-35.5); Mean Corpuscular Hemoglobin 32.9 pg (28.0-33.3); Monocytes # 1.2 K/mcL (0.0-1.3); Monocytes % 16.4 %; Neutrophils # 4.3 K/mcL (1.6-8.9); Platelet Count 129 K/mcL (140-400); Red Blood Count 3.16 M/mcL (4.19-5.50); Red Cell Distribution Width 12.9 % (11.5-14.5); Segmented Neutrophils % 59.6 %
[2018-03-18 06:49] LABS: INR 1.4; Prothrombin Time 15.5 Seconds (9.4-12.1)
[2018-03-18 07:01] LABS: Albumin 2.9 g/dL (3.5-5.7); Calcium 8.7 mg/dL (8.6-10.3); Magnesium 1.9 mg/dL (1.6-2.6); Phosphorous 3.6 mg/dL (2.7-4.5); Potassium 4.6 mEq/L (3.5-5.1); Uric Acid 7.1 mg/dL (2.3-7.6)
[2018-03-18] MEDS: Pregabalin 75 MG CAPSULE PO SCH (08:42)
[2018-03-18] MEDS: risperiDONE 1 MG TABLET PO SCH ×2 (08:43→20:57)
[2018-03-18] MEDS: Metoprolol XL (24 HR) Succ 50 MG TAB.ER.24H PO SCH ×2 (08:43→20:56)
[2018-03-18] MEDS: Multivit/Ca/Min/Fe/FA 1 TAB TABLET PO SCH (08:43)
[2018-03-18] MEDS: Insulin LISPRO 300 UNITS/3 ML VIAL SQ SCH ×4 (08:46→22:46)
--- NOTE | 2018-03-18 11:03 | Nephrology Progress Note ---
Addendum entered and electronically signed by Kody Marin MD 03/18/18 23:18: I examined this patient and discussed the medical decision-making with CLEMENTINE Teague. I agree with the documented findings, disposition and treatment plan as described except to the extent set forth below. Patient is interested in a nicotine patch whenever he is discharged home. He also is interested in signing up for AA. Consider reconsult again social work for counseling regarding alcohol dependence. Original Note: Date of Encounter: 03/18/18 Time of Encounter: 10:58 - Assessment and Plan (1) Acute renal failure Current Visit: Yes Status: Acute BETH with most likely etiology being a nephrotoxicity with vanco, in the setting of b/l heal wounds, recent fall/rib fractures, obesity, alcohoholism, diabetes. Scr 3.42, GFR 19 Renal ultrasound and labs pending for BETH workup Agree with holding Lisinopril, HCTZ, and Vanco (held yesterday) UOP only 200ml however patient states he is peeing a lot and filled up a 1 liter canister--suspect UOP not being recorded correctly Qualifiers: Acute renal failure type: with other specified pathological lesion Qualified Code(s): N17.8 - Other acute kidney failure (2) Alcohol abuse Current Visit: No Status: Chronic per primary team (3) Cellulitis of left foot due to methicillin-resistant Staphylococcus aureus Current Visit: No Status: Acute per podiatry team Subjective Principal diagnosis: BETH, cellulitis of left foot Interval history: Patient seen and examined, sitting up in chair at bedside; states he is feeling 'ok'. Objective - Vital Signs Vital signs: Vital Signs Temp Pulse Resp BP Pulse Ox 03/18/18 06:29 98.0 F 93 16 133/70 91 03/18/18 04:36 97.6 F 87 16 127/72 92 03/18/18 00:14 12 156/82 94 03/18/18 00:12 97.8 F 78 16 105/57 99 03/17/18 20:31 90 03/17/18 19:20 98.7 F 98 14 156/82 90 03/17/18 15:19 98.3 F 90 18 159/78 92 Intake and Output 03/17/18 03/18/18 03/18/18 23:59 07:59 15:59 Intake Total 1400 / 1400 1000 / 1000 0 / 0 Output Total 0 / 0 0 / 0 Balance 1400 / 1400 1000 / 1000 0 / 0 Intake: IV Fluids 1400 / 1400 1000 / 1000 0.9 % Sodium Chloride 1,000 ML 1000 / 1000 1000 / 1000 @ 100 mls/hr IVC .Q10H [facility] Rx#: [id number] Zyvox Premix 600mg/300mL 600 mg 300 / 300 In 300 ml @ 150 mls/hr IVPB Q12HR [facility] Rx#:[id number] Zosyn 3.375 GM In 0.9 % Sodium 100 / 100 Chloride (Mini-Bag +) 100 ML @ 25 mls/hr IVPB Q12H [facility] Rx#: [id number] Oral 0 / 0 0 / 0 0 / 0 Output: Urine 0 / 0 0 / 0 Other: Meal Dinner Breakfast Percent of Meal Consumed 5% 10% Stool Size Large Stool Consistency formed Stool Color Brown # Voids 1 # Bowel Movements 1 Weight 97.6 kg Blood Glucose* 146 180 Patient Weight 03/18/18 23:59 Weight 97.6 kg - General Appearance General appearance: Present: obese EENT: Present: ATNC, mucous membranes moist, hearing intact, vision intact Neck: Present: supple Respiratory: Present: clear Cardiology: Present: edema, normal S1, normal S2 Gastrointestinal: Present: no tenderness, no guarding, obese Integumentary: Present: warm and dry (jaundice) Neurologic: Present: alert and oriented x3 Psychiatric: Present: mood/affect appropriate, cooperative - Lab 03/18/18 05:35 03/18/18 05:35 Most recent lab results Calcium 8.7 mg/dL (8.6-10.3) 03/18/18 05:35 Phosphorus 3.6 mg/dL (2.7-4.5) 03/18/18 05:35 Magnesium 1.9 mg/dL (1.6-2.6) 03/18/18 05:35 Consult Discharge Plan - Plan Referrals: Froylan Guido MD [Primary Care Provider] -
[2018-03-18] MEDS ORDERED: Ipratropium/Albuterol Neb 3 ML IH PRN (12:04)
--- NOTE | 2018-03-18 13:34 | Podiatry Progress Note ---
Date of Encounter: 03/18/18 Time of Encounter: 09:50 - Assessment and Plan (1) Heel ulcer due to DM Current Visit: Yes Status: Acute Bilateral heel ulcer noted Right ulcer measuring 3.3 x 4 x 0.3 cm, Right lateral calcaneous with dressing in place. Removed with large amount of serosanguineous drainage noted. Puraply graft noted to wound bed. Surgicel noted to proximal wound bed. Maceration noted to outer edges. Expected postop erythema and edema noted to outlying wound bed. Applied Adaptic, 4 x 4 dry gauze, Kerlix, and Ranjit bandage. Reapplied surgical shoe. Left heel ulcer measuring 2.3 x 3.8 x 0.4, Left lateral calcaneous with dressing in place. Removed old dressing with large amount of serosanguineous drainage noted. Puraply graft noted to wound bed. Expected postop erythema and edema noted to outlying area. Applied Adaptic, 4 x 4 dry gauze, Kerlix, and Ranjit bandage. Reapplied diabetic shoe. Lateral left ulcer measuring 1 x 1 x 0.4 cm, Left dorsal lateral ulcer noted with red beefy wound bed. Applied Adaptic, 4 x 4 dry gauze, Kerlix and Ranjit bandage. Reapplied diabetic shoe. Pathology from OR pending. Tissue cultures from the OR pending. Blood cultures pending. Consider ID consult if cultures come back positive. Qualifiers: Diabetes mellitus type: type 2 Laterality: left Non-pressure ulcer stage: unspecified non-pressure ulcer stage Qualified Code(s): E11.621 - Type 2 diabetes mellitus with foot ulcer; L97.429 - Non-pressure chronic ulcer of left heel and midfoot with unspecified severity (2) Diabetes mellitus type 2 in obese Current Visit: Yes Status: Acute Last hemoglobin A1c in 2013 6.7 Currently on sliding-scale insulin and hospital. Blood glucose levels 160s. Diabetic diet Continue to control blood glucose to promote wound healing. Primary following Subjective Principal diagnosis: BETH, cellulitis of left foot Interval history: Patient sitting up in chair. Alert and oriented 3. Wearing surgical shoe and diabetic boot. Able to ambulate to bed without difficulty. Denies any overnight events. Objective - Vital Signs Vital Signs: Vital Signs Temp Pulse Resp BP Pulse Ox 03/18/18 10:58 98.4 F 75 16 111/53 92 10/29/18 06:29 98.0 F 93 16 133/70 91 03/18/18 04:36 97.6 F 87 16 127/72 92 03/18/18 00:14 12 156/82 94 03/18/18 00:12 97.8 F 78 16 105/57 99 03/17/18 20:31 90 03/17/18 19:20 98.7 F 98 14 156/82 90 03/17/18 15:19 98.3 F 90 18 159/78 92 Intake and Output 03/17/18 03/18/18 03/18/18 23:59 07:59 15:59 Intake Total 1400 / 1400 1000 / 1000 480 / 480 Output Total 0 / 0 0 / 0 Balance 1400 / 1400 1000 / 1000 480 / 480 Intake: IV Fluids 1400 / 1400 1000 / 1000 0.9 % Sodium Chloride 1,000 ML 1000 / 1000 1000 / 1000 @ 100 mls/hr IVC .Q10H [facility] Rx#: [id number] Zyvox Premix 600mg/300mL 600 mg 300 / 300 In 300 ml @ 150 mls/hr IVPB Q12HR [facility] Rx#:[id number] Zosyn 3.375 GM In 0.9 % Sodium 100 / 100 Chloride (Mini-Bag +) 100 ML @ 25 mls/hr IVPB Q12H [facility] Rx#: [id number] Oral 0 / 0 0 / 0 480 / 480 Output: Urine 0 / 0 0 / 0 Other: Meal Dinner Lunch Percent of Meal Consumed 5% 100% Stool Size Large Stool Consistency formed Stool Color Brown # Voids 1 # Bowel Movements 1 Weight 97.6 kg Blood Glucose* 146 180 165 Patient Weight 03/18/18 23:59 Weight 97.6 kg - Exam Exam: Constitiutional: Alert and oriented x 3. Vascular: 1/4 DP/PT bilaterally, CFT <3 sec to all digits, warm to warm from tibia to toes bilaterally, 2+/4 edema noted bilaterally Neurologic: Diminished sensation to touch, normal plantar response Dermatologic: Right lateral calcaneous with dressing in place. Removed. Puraply graft noted to wound bed. Surgicel noted to proximal wound bed. Maceration noted to outer edges. Expected postop erythema and edema noted to outlying wound bed. Left lateral calcaneous with Puraply graft noted to wound bed. Expected postop erythema and edema noted to outlying area. Left dorsal lateral ulcer noted with red beefy wound bed. Musculoskeletal: 3/5 muscle strength and normal tone bilaterally. - Lab Result Diagrams: 03/18/18 05:35 03/18/18 05:35 Labs: Abnormal lab results RBC 3.16 M/mcL (4.19-5.50) L 03/18/18 05:35 Hgb 10.4 g/dL (12.9-16.9) L 03/18/18 05:35 Hct 31.6 % (37.5-50.1) L 03/18/18 05:35 Plt Count 129 K/mcL (140-400) L 03/18/18 05:35 ESR 80 mm/hr (0-10) H 03/13/18 12:35 PT 15.5 Seconds (9.4-12.1) H 03/18/18 05:35 Carbon Dioxide 22 mEq/L (23-29) L 03/18/18 05:35 BUN 26 mg/dL (6-20) H 03/18/18 05:35 Creatinine 3.42 mg/dL (0.70-1.30) H 03/18/18 05:35 Est GFR ( Amer) 23 (> 60) L 03/18/18 05:35 Est GFR (Non-Af Amer) 19 (> 60) L 03/18/18 05:35 Glucose 119 mg/dL (70-105) H 03/18/18 05:35 POC Glucose 165 mg/dL (70-99) H 03/18/18 10:53 Creatine Kinase 17 Units/L (30-223) L 03/18/18 05:35 C-Reactive Protein 54 mg/L (Less than 10) H 03/13/18 12:35 Albumin 2.9 g/dL (3.5-5.7) L 03/18/18 05:35 Vancomycin Trough 15 mcg/mL (5-10) H 03/15/18 01:12 Consult Discharge Plan - Plan Additional Instructions: Follow with Dr. Taylor in wound center. Please call and make appointment prior to D/C. Referrals: Froylan Guido MD [Primary Care Provider] - Sanford Taylor DPM [Partnered Physician] -
[2018-03-18] MEDS: Ipratropium/Albuterol Neb 3 ML IH SCH ×2 (15:41→22:10)
--- NOTE | 2018-03-18 15:44 | Infectious Disease Consult ---
Date of Encounter: 03/18/18 Time of Encounter: 10:25 Assessment and Plan (1) Heel ulcer due to DM Status: Acute Assessment and plan: - Patient meant 0/4 sirs criteria on admission - Has been afebrile with no leukocytosis, WBC of 7.2 this morning with normal differentiation - Postoperative day #3 from bilateral heel surgical graft - Clinically patient is complaining of no pain, discharge, erythema - ESR 80, CRP 54 on 03/13 - Creatinine kinase 17 - Wound cultures from OR pending - Tissue cultures from OR pending - Blood cultures from 03/13 no growth 2 final - Patient does have a past history of wound cultures of left first toe including positive growth for Pseudomonas, MRSA, MSSA, group B strep - X-ray of bilateral foot on 03/13 shows mild soft tissue swelling and likely cellulitis with no obvious osteomyelitis findings. - Was initially started on vancomycin and Zosyn in the emergency department. Vancomycin was stopped on 03/15 due to acute kidney injury after 3 day course. - Current regimen includes Zosyn, day 6 and Zyvox, day 3 Plan - Change Zyvox to daptomycin 500 mg q48 hours (day1) due to interactions with trazodone as well as potential duration of treatment for up to 6 weeks. - Monitor CK - Continue Zosyn, day 6 - Await culture and pathology results from OR - If culture results return negative, we will consider oral versus discontinuing antibiotics. This will be discussed with Dr. Bower -At this time, there is no indication for repeating CRP/ESR or MRI as they will likely be positive given recent surgical procedure Qualifiers: Diabetes mellitus type: type 2 Laterality: left Non-pressure ulcer stage: unspecified non-pressure ulcer stage Qualified Code(s): E11.621 - Type 2 diabetes mellitus with foot ulcer; L97.429 - Non-pressure chronic ulcer of left heel and midfoot with unspecified severity (2) Acute renal failure Status: Acute Assessment and plan: - BUNs/creatinine of /3.42 - Baseline creatinine appears to be around 0.7-1.0 - Possibly secondary to vancomycin use - Continue to monitor renal function, renally dose antibiotics - Further management per primary team, nephrology following Qualifiers: Acute renal failure type: with other specified pathological lesion Qualified Code(s): N17.8 - Other acute kidney failure (3) Diabetes mellitus type 2 in obese Status: Chronic Assessment and plan: Well-controlled diabetes with most recent A1c of 5.4% in October 2017 Blood sugars have been well-controlled since admission Further management per primary team (4) Alcohol abuse Status: Chronic Assessment and plan: Patient is on CIWA protocol Discussed with nursing staff Infectious Disease HPI - Data of Consult Patient: new to practice Consult date: 03/18/18 Requesting Physician: Barbie Tellez Primary Care Provider: Froylan Guido MD - Consult Narrative Reason for consult: Diabetic Foot ulcer History of present illness: Mr. Parish is a 47 year old male who presents to [place] ED with wound laceration on 03/13 as well as fall resulting in left-sided chest wall pain. Infectious diseases was consulted on 03/18 for "diabetic foot ulcer ". Patient has a past medical history of type 2 diabetes with neuropathy, hyperte nsion, COPD, CHLOE on CPAP, GERD, tobacco and alcohol abuse, left-sided rib fracture, and bilateral heel ulcers for which he is a patient of Dr. Taylor. Upon coming to [facility] ED patient had normal vitals and had a WBC of 9.4 with normal differential. ESR and CRP are 80 and 54 respectively on 03/13. B UN/creatinine of 26/3.42 which is increased from admission from 16/0.76. He was initially started on vancomycin and Zosyn in the emergency department. Vancomycin was changed to Zyvox due to acute kidney injury. We will culture obtained on is negative. X-rays of bilateral foot were obtained emergency department. X-ray of left foot showed nonspecific soft tissue swelling with no evidence of osteomyelitis. X-ray of right foot showed mild soft tissue swelling no osteomyelitis. Surgery was performed on 03/15 including bilateral heel graft, bone biopsy of bilateral calcaneus. Intraoperative cultures and pathology are still pending. Patient was seen and examined up at since morning. Overall, he states he is doing well with no complaints. He describes that he presented to the emergency department after a fall and having left chest wall pain. He is also noticed for the past week he has had some serosanguineous drainage from his left heel as well as a foul smell. He had followed up with his cupola man in the last week prior to admission. Today, he states he is having no symptoms of nausea, vomiting, diarrhea, abdominal pain as well as no fevers, chills, fatigue, night sweats. He denies any symptoms shortness breath but does admit to a nonproductive wet sounding cough. He does state that he is a chronic diabetic and does check his blood sugars at home. He normally runs between 125 and 190 and has had a well-controlled A1c since then of 5.9%. CC: Barbie Tellez 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 Psychiatric history: anxiety, depression - Past Surgical History Surgical History: orthopedic, other, other Additional surgical history: graft placement to left plantar foot X5 - Social History Smoking Status: Current every day smoker Smokeless Tobacco Status: No Alcohol use: heavy Drug use: none - Family History Father Adopted: No Family Member Ethnicity: Non- Living Status: Hx Family Cardiac Disorders: Yes Hx Family Respiratory Disorders: Yes Hx Family Cancer: Yes Hx Family GI Disorders: No Hx Family Endocrine Disorder: Yes Hx Family Neuromuscular Disorders: No Hx Family Neurologic Disorders: No Hx Family HEENT Disorders: No Hx Family Autoimmune Disorders: No Mother Adopted: No Living Status: Still Living Hx Family Cardiac Disorders: Yes Hx Family Respiratory Disorders: Yes Hx Family Cancer: No Hx Family GI Disorders: No Hx Family Endocrine Disorder: No Hx Family Neuromuscular Disorders: No Hx Family Neurologic Disorders: No Hx Family HEENT Disorders: No Hx Family Autoimmune Disorders: No Infectious Disease-CN:Meds Albuterol Sulfate [Albuterol Inhaler] 2 puff IH Q4HR PRN 04/06/16 [History] Multivitamin [Multi-Day Vitamins] 1 tab PO DAILY 04/06/16 [History] [place]-3/Dha/Epa/Fish Oil [Fish Oil 1,000 mg Softgel] 2 cap PO BID 04/06/16 [History] Omeprazole [PriLOSEC] 40 mg PO DAILY 04/06/16 [History] Quinapril HCl [Accupril] 40 mg PO DAILY 04/06/16 [History] RX: Metoprolol Succinate 100 mg PO BID 04/06/16 [History] RX: glipiZIDE [Glipizide] 10 mg PO BID 04/06/16 [History] RX: hydroCHLOROthiazide [Hydrochlorothiazide] 25 mg PO DAILY 04/06/16 [History] RX: Meloxicam 15 mg PO DAILY 06/01/16 [History] Pregabalin [Lyrica] 150 mg PO TID 12/21/16 [History] RX: Ibuprofen [Motrin] 600 mg PO BID PRN 12/21/16 [History] RX: Loratadine [Claritin] 10 mg PO DAILY 12/21/16 [History] RX: diazePAM [Valium] 10 mg PO Q6HR PRN 09/05/17 [History] RX: OxyCODONE/APAP 5/325 [Percocet 5/325 MG] 1 each PO Q6HR PRN 2 Days #8 tablet 02/25/18 [Rx] Atorvastatin [Lipitor] 40 mg PO HS 03/13/18 [History] Collagenase Oint [Santyl] 1 appl TP DAILY 03/13/18 [History] DULoxetine [Cymbalta] 30 mg PO BID 03/13/18 [History] RX: Fluticasone Propionate Nasal [Flonase] 1 spr NS DAILY 03/13/18 [History] RX: traZODone [TraZODone] 50 mg PO HS 03/13/18 [History] metFORMIN [Glucophage] 500 mg PO BIDWM 03/13/18 [History] risperiDONE [Risperdal] 2 mg PO BID 03/13/18 [History] Allergy/AdvReac Type Severity Reaction Status Date / Time hydrocodone [From Vicodin] AdvReac Severe Nausea Verified 02/25/18 14:08 cephalexin [From Keflex] AdvReac Vomiting Verified 02/25/18 14:08 codeine AdvReac Confusion Verified 02/25/18 14:08 morphine AdvReac Rash Verified 02/25/18 14:08 Review of systems: - Constitutional: Denies fevers, chills, weight loss, generalized fatigue - CVS: Admits to pleuritic chest pain over left chest wall. Denies palpitations, SOLIMAN, orthopnea, edema, PND, - Pulm: Admits to non productive cough. Denies SOB, hematemesis, wheezing - GI: Denies abdominal pain, anorexia, nausea, vomiting, diarrhea, constipation, melena - MSK: Admits to serosanguineous drainage from left heel. Denies joint pain, limited ROM - Skin: Admits to bilateral heel ulcers with foul smelling discharge, chronic. Denies rashes, color changes, - Neuro: Admits to chronic paresthesias of bilateral lower extremities. Denies ENGL[place], paresthesias, focal deficits, ataxia, Exam - Constitutional Vitals: Temp Pulse Resp BP Pulse Ox 98.0 F 84 16 108/67 94 03/18/18 14:14 03/18/18 14:14 03/18/18 14:14 03/18/18 14:14 03/18/18 14:14 Exam: Gen.: Vitals noted. No acute distress. AAOx3, resting comfortably at bedside chair HEENT: PERRL/EOMI, oropharynx clear, Normocephalic, atraumatic, MMM Cardiac: RRR, no murmur, +S1/S2 Pulmonary: CTA bilaterally, no wheezes, rales or rhonchi, equal chest expansion Abdomen: soft, nontender, BS noted, no guarding, no rebound, mildly distended MSK: ROM intact, no joint swelling noted Extremities: Bilateral lower extremities with soft cast and Ranjit bandaging. Right leg with 1+ pitting edema and what appears to be chronic venous stasis with surgical stroke covering wound. Left leg with surgical boot to knee. No obvious signs of spreading infection including erythema, discharge, foul smell Neuro: A&Ox3, moves all extremities, no focal deficits Psych: Appropriate mood and behavior Infectious Disease CN: Results - Labs CBC & Chem 7: 03/18/18 05:35 03/18/18 05:35 Cultures: Cultures 03/13/18 12:35 Blood Culture - Final Peripheral Venipuncture No growth. Final report. 03/13/18 13:00 Blood Culture - Final Peripheral Venipuncture No growth. Final report. Serology: Serology 03/17/18 Range/Units 18:00 Ur Eosinophil Smear 0 (None Seen) % Consult Discharge Plan - Plan Additional Instructions: Follow with Dr. Taylor in wound center. Please call and make appointment prior to D/C. Referrals: Froylan Guido MD [Primary Care Provider] - Sanford Taylor DPM [Partnered Physician] - - Attending Attestation I examined this patient and my medical decision-making was reviewed with the Resident Physician. I agree with the documented findings, disposition and treatment plan as described except to the extent set forth below. This is an addendum to original report dictated by resident physician. Please refer to resident's note for full detail. Patient is a 47-year-old gentleman with past medical history mentioned below presented to [facility] on 03/13/2018 with a fall resulting in left-sided chest wall pain. We were consult at for diabetic foot ulcer. On further questions patient apparently is a heavy drinker and drinks almost a 6 pack per day. Patient's review of system is positive only for lower extremity pain. Otherwise he denies any headache no chest pain or shortness of breath no nausea or vomiting diarrhea constipation or urinary symptoms. Patient underwent surgery on 03/15/2018 including bone biopsy of the bilateral calcanei. Pathology and Intra-Op cultures were all no growth to date. I did speak with Dr. Bower who did the procedure and he stated that there was significant foul-smelling purulence. Was also cellulitis-like picture. He did not think there was any osteomyelitis. Assessment and plan: Diabetic heel ulcer with grossly infected. Concern for osteomyelitis is there but less likely. Await pathology report to finalize. Causative organism still not clear. The patient is on broad-spectrum ant ibiotics. Patient had multiple organisms grown the past including pseudomonas aeruginosa, MRSA, MSSA, group B streptococcus and Enterobacter in the past. Patient's also had Peptostreptococcus and multiple anaerobes in the past. Patient was started on vancomycin and Zosyn but it looks like patient went acute kidney injury likely secondary to vancomycin toxicity Patient was switched to Zyvox. Recommendations: DC Zyvox since patient is on trazodone and if he needs a prolonged treatment course I would be concerned for Zyvox toxicity Start Daptomycin about 6 mg/kg every 8 hours based on the creatinine clearance less than 30 Continue Zosyn for now until cultures finalize If the pathology report is nonconclusive we might have to consider doing an MRI Monitor labs and for drug toxicity Duration of treatment depends on the clinical picture but at least 2 weeks
[2018-03-18] MEDS: Nicotine 21 MG PATCH.TD24 TD SCH (16:04)
--- NOTE | 2018-03-18 16:31 | Internal Med Progress Note ---
Hospitalist Progress Note - Encounter Date of Encounter: 03/18/18 Time of Encounter: 09:00 - Subjective Interval History: Pt sitting in chair comfortably. C/O left rib pain. Had grafting/biopsy by podiatry. No fever overnight. Denies headache/nausea/tremor. Denies SOB, mild cough. - Exam Vitals: Temp Pulse Resp BP Pulse Ox 98.0 F 84 16 108/67 94 03/18/18 14:14 03/18/18 14:14 03/18/18 15:41 03/18/18 14:14 03/18/18 15:41 Exam: AAO x 3, in NAD HEENT: NC/AT, PERRL Neck: Supple, no JVD Lungs: CTA b/l, left chest wall tenderness d/t rib fracture, scattered wheezes b/l Heart: S1S2, RRR Abd: Soft, NT Ext: B/L heel ulcer, mild leg edema Neuro: Decreased sensation on both feet. - Assessment and Plan (1) CHLOE (obstructive sleep apnea) Current Visit: Yes Status: Acute Assessment and Plan: Cont CPAP during night (2) Morbid obesity Current Visit: Yes Status: Acute Assessment and Plan: Need lifestyle modification as outpatient. (3) Heel ulcer Current Visit: Yes Status: Acute Assessment and Plan: Pt has DM neuropathy. Has b/l heels ulcer. Consider DM foot ulcer. - Pt doesn't show systemic symptoms, no fever or leukocytosis. - X-ray shows cellulitis, no gas identified. - Cont zosyn, change linezolid to daptomycin per ID. - Blood and wound culture send by ER - Bone biopsy sent by podiatry - ID consult appreciated. (4) DVT prophylaxis Current Visit: No Status: Acute Assessment and Plan: Heparin SC (5) Fracture of three ribs of left side Current Visit: No Status: Acute Assessment and Plan: Cont pain control as needed. (6) Alcohol abuse Current Visit: No Status: Chronic Assessment and Plan: No signs of withdraw, cont CIWA protocol. (7) COPD (chronic obstructive pulmonary disease) Current Visit: No Status: Chronic Assessment and Plan: Stable, scatter wheezing, cont home meds, add scheduled and PRN duoneb, dc IVF.. (8) Diabetes mellitus Current Visit: No Status: Chronic Assessment and Plan: Place pt on SSI (9) HTN (hypertension) Current Visit: No Status: Chronic Assessment and Plan: Cont home meds. Hold lisinopril and HCTZ b/o BETH. BP is not high. (10) Tobacco abuse Current Visit: No Status: Chronic Assessment and Plan: Smoking cessation education. Place pt on nicotine patch. (11) Acute renal failure Current Visit: Yes Status: Acute Assessment and Plan: Increased Cr to 3.42 today. Possibly multiple factorial including vanco use, infection, on ACEI and HCTZ. - Hold vanco, change to daptomycin now. - Dosing zosyn per renal function. Dose lyrica and risperidone as well per renal function - Hold lisinopril and HCTZ - Hold ivf now as pt has increased wheezes. Pt eat and drinking well - Avoid nephrotoxic medications. - Closely follow up renal function. - Strict I/O - Nephro consult appreciated. Retroperitoneal US pending DVT Prophylaxis: Heparin SC - Time Spent with Patient Total time spent is greater than 50% in coordination of care (as documented) at patient's floor/unit and/or counseling patient: 25 - 35 minutes Plan of Care Discussed with: patient Internal Medicine: Result - Labs CBC & Chem 7: 03/18/18 05:35 03/18/18 05:35 Labs: Short CBC 03/18/18 Range/Units 05:35 WBC 7.2 (4.3-11.1) K/mcL Hgb 10.4 L (12.9-16.9) g/dL Hct 31.6 L (37.5-50.1) % Plt Count 129 L (140-400) K/mcL Neutrophils # 4.3 (1.6-8.9) K/mcL BMP 03/18/18 05:35 Sodium 137 Potassium 4.6 Chloride 107 Carbon Dioxide 22 L BUN 26 H Creatinine 3.42 H Glucose 119 H Calcium 8.7 Liver Function 03/18/18 Range/Units 05:35 Albumin 2.9 L (3.5-5.7) g/dL - ABG Interpretation ABG results: PT/INR, D-dimer PT 15.5 Seconds (9.4-12.1) H 03/18/18 05:35 Consult Discharge Plan - Plan Additional Instructions: Follow with Dr. Taylor in wound center. Please call and make appointment prior to D/C. Referrals: Froylan Guido MD [Primary Care Provider] - Sanford Taylor DPM [Partnered Physician] - (3) Heel ulcer Qualifiers: Laterality: unspecified laterality Non-pressure ulcer stage: limited to breakdown of skin Qualified Code(s): L97.401 - Non-pressure chronic ulcer of unspecified heel and midfoot limited to breakdown of skin (5) Fracture of three ribs of left side Qualifiers: Encounter type: subsequent encounter Fracture type: closed Fracture healing: with routine healing Qualified Code(s): S22.42XD - Multiple fractures of ribs, left side, subsequent encounter for fracture with routine healing (7) COPD (chronic obstructive pulmonary disease) Qualifiers: COPD type: unspecified COPD Qualified Code(s): J44.9 - Chronic obstructive pulmonary disease, unspecified (8) Diabetes mellitus Qualifiers: Diabetes mellitus type: type 2 Diabetes mellitus rail layer insulin use: without rail layer use Diabetes mellitus complication status: with skin complications Diabetes mellitus complication detail: with foot ulcer Qualified Code(s): E11.621 - Type 2 diabetes mellitus with foot ulcer; L97.509 - Non- pressure chronic ulcer of other part of unspecified foot with unspecified severity (9) HTN (hypertension) Qualifiers: Hypertension type: essential hypertension Qualified Code(s): I10 - Essential (primary) hypertension (11) Acute renal failure Qualifiers: Acute renal failure type: with other specified pathological lesion Qualified Code(s): N17.8 - Other acute kidney failure
[2018-03-18] MEDS: Fluticasone Propionate Nasal 50 MCG/SPRAY BOTTLE NS SCH (18:27)
[2018-03-18] MEDS: DAPTOmycin 500 MG in 0.9 % Sodium Chloride 100 ML IVPB SCH (18:35)
[2018-03-18] MEDS: traZODone 50 MG TABLET PO SCH (20:57)
[2018-03-19] MEDS: *HR* OxyCODONE/APAP 5/325 TABLET PO PRN ×5 (02:20→21:57)
[2018-03-19 04:22] LABS: Basophils % 0.4 %; Eosinophils # 0.1 K/mcL (0.0-0.6); Eosinophils % 1.9 %; Hematocrit 33.9 % (37.5-50.1); Hemoglobin 10.8 g/dL (12.9-16.9); Immature Granulocytes % 0.3 % (0-4); Lymphocytes # 1.4 K/mcL (0.6-4.6); Lymphocytes % 21.3 %; Mean Corpuscular HGB Conc 31.9 g/dL (31.6-35.5); Mean Corpuscular Hemoglobin 32.3 pg (28.0-33.3); Mean Corpuscular Volume 101.5 fL (83.0-100.0); Mean Platelet Volume 10.1 fL (9.4-12.4); Monocytes % 14.5 %; Neutrophils # 4.1 K/mcL (1.6-8.9); Red Blood Count 3.34 M/mcL (4.19-5.50); Red Cell Distribution Width 12.9 % (11.5-14.5); Segmented Neutrophils % 61.6 %
[2018-03-19] MEDS: Ipratropium/Albuterol Neb 3 ML IH SCH ×4 (04:28→21:45)
[2018-03-19 04:30] LABS: Calcium 8.7 mg/dL (8.6-10.3); Potassium 4.4 mEq/L (3.5-5.1)
[2018-03-19] MEDS: Piperacillin/Tazobactam 3.375 GM in 0.9 % Sodium Chloride Mini Bag 100 ML IVPB SCH ×2 (05:02→16:49)
[2018-03-19] MEDS: *HR* Heparin 5,000 UNIT/ML VIAL SQ SCH ×2 (05:14→16:49)
[2018-03-19 05:23] LABS: Platelet Count 120 K/mcL (140-400)
[2018-03-19] MEDS: Fluticasone Propionate Nasal 50 MCG/SPRAY BOTTLE NS SCH (08:00)
[2018-03-19] MEDS: Insulin LISPRO 300 UNITS/3 ML VIAL SQ SCH ×4 (08:02→22:00)
[2018-03-19] MEDS: risperiDONE 1 MG TABLET PO SCH ×2 (08:03→21:58)
[2018-03-19] MEDS: Metoprolol XL (24 HR) Succ 50 MG TAB.ER.24H PO SCH ×2 (08:04→21:58)
[2018-03-19] MEDS: Pregabalin 75 MG CAPSULE PO SCH (08:04)
[2018-03-19] MEDS: Multivit/Ca/Min/Fe/FA 1 TAB TABLET PO SCH (08:04)
[2018-03-19] MEDS: Nicotine 21 MG PATCH.TD24 TD SCH (12:39)
--- NOTE | 2018-03-19 15:00 | Infectious Disease Progress No ---
Date of Encounter: 03/19/18 Time of Encounter: 15:47 - Assessment and Plan (1) Heel ulcer due to DM Current Visit: Yes Status: Acute - Patient meant 0/4 sirs criteria on admission - Has been afebrile with no leukocytosis, WBC of 6.7 this morning with normal differentiation - Postoperative day #4 from bilateral heel surgical graft - Clinically patient is complaining of no pain, discharge, erythema - ESR 80, CRP 54 on 03/13 - Creatinine kinase 17 - Blood cultures from 03/13 no growth 2 final - Patient does have a past history of wound cultures of left first toe including positive growth for Pseudomonas, MRSA, MSSA, group B strep - X-ray of bilateral foot on 03/13 shows mild soft tissue swelling and likely cellulitis with no obvious osteomyelitis findings. - Was initially started on vancomycin and Zosyn in the emergency department. Vancomycin was stopped on 03/15 due to acute kidney injury after 3 day course. Zyvox was stopped due to interactions with trazodone as well as potential duration of treament possibly 6 weeks. Left foot culture wounds have come back positive for gram negative rods and gram positive cocci. Right foot culture wounds have come back positive for gram positive cocci. Bone Biopsy taken on 03/15 still pending. Plan: -Continue antibiotic treatment of Zoysn (day 7) and daptomycin (day 2) for coverage of the foot wounds bilaterally -monitor CK -At this time, there is no indication for repeating CRP/ESR or MRI as they will likely be positive given recent surgical procedure -Podiatry following, appreciate recommendations Qualifiers: Diabetes mellitus type: type 2 Laterality: left Non-pressure ulcer stage: unspecified non-pressure ulcer stage Qualified Code(s): E11.621 - Type 2 diabetes mellitus with foot ulcer; L97.429 - Non-pressure chronic ulcer of left heel and midfoot with unspecified severity (2) Acute renal failure Current Visit: Yes Status: Acute BUN today is 27 and Creatnine is 3.5 which is similar to yesterday 26/3.42 respectively. Baseline creatinine is around 0.7-1.0 Could possibly be secondary to vancomycin treatment. Continue to monitor renal function, renally dose antibiotics. Managment per primary team, nephorology is following Qualifiers: Acute renal failure type: with other specified pathological lesion Qualified Code(s): N17.8 - Other acute kidney failure (3) Diabetes mellitus Current Visit: No Status: Chronic well-controlled diabetes with most recent A1C of 5.4% on October 2017. blood sugars are under control since admission further management per primary team Qualifiers: Diabetes mellitus type: type 2 Diabetes mellitus residential insulin use: without terminal operator use Diabetes mellitus complication status: with skin complications Diabetes mellitus complication detail: with foot ulcer Qualified Code(s): E11.621 - Type 2 diabetes mellitus with foot ulcer; L97.509 - Non-pressure chronic ulcer of other part of unspecified foot with unspecified severity (4) Alcohol abuse Current Visit: No Status: Chronic Patient is on CIWA protocol. Discussed with nursing staff. - Subjective Interval history: Patient is seen. Appears comfortable and in no acute distress. Upon questioning denies fever, chills, night sweats and myalgia's. Denies SOB and chest pain. Admits to productive cough with brown sputum which he states is normal for him. Denies hemoptysis. Denies nausea, vomiting, diarrhea or abdom inal pain. Denies other joint pain. Denies pain in left and right legs, most likely due to pain medications. Denies Radiation of pain. Reports no other skin lesions or oral thrush. Infect Dis PN-Objective Data - Labs CBC & Chem 7: 03/19/18 04:04 03/19/18 04:04 Labs: Laboratory Results - last 24 hr 03/19/18 03/19/18 04:04 04:04 WBC 6.7 RBC 3.34 L Hgb 10.8 L Hct 33.9 L MCV 101.5 H MCH 32.3 MCHC 31.9 RDW 12.9 Plt Count 120 L MPV 10.1 Immature Gran % 0.3 Seg Neutrophils % 61.6 Lymphocytes % 21.3 Monocytes % 14.5 Eosinophils % 1.9 Basophils % 0.4 Neutrophils # 4.1 Lymphocytes # 1.4 Monocytes # 1.0 Eosinophils # 0.1 Basophils # 0.0 Sodium 139 Potassium 4.4 Chloride 106 Carbon Dioxide 23 BUN 27 H Creatinine 3.50 H Est GFR ( Amer) 23 L Est GFR (Non-Af Amer) 19 L BUN/Creatinine Ratio 8 Glucose 143 H Calculated Osmolality 296 Calcium 8.7 Cultures: Cultures 03/15/18 15:43 Wound Culture - Preliminary Left Foot Gram Negative Roosevelt Gram Positive Cocci 03/15/18 15:30 Wound Culture - Preliminary Right Foot Gram Positive Cocci 03/15/18 15:43 Surgical Biopsy Culture - Preliminary Left Foot 03/15/18 15:43 Surgical Biopsy Culture - Preliminary Right Foot 03/13/18 12:35 Blood Culture - Final Peripheral Venipuncture No growth. Final report. 03/13/18 13:00 Blood Culture - Final Peripheral Venipuncture No growth. Final report. Serology 03/17/18 Range/Units 18:00 Ur Eosinophil Smear 0 (None Seen) % - Impressions Impressions Retroperitoneum Ultrasound 03/18/18 15:00 IMPRESSION: Normal renal echotexture in size. Simple cyst in the upper pole the left kidney. D/ / Cm Aleman MD / Cm Aleman MD Interpreting Provider: Cm Aleman MD Exam - Constitutional Vitals: Temp Pulse Resp BP Pulse Ox 98 F 79 16 146/66 93 03/19/18 12:30 03/19/18 12:30 03/19/18 12:30 03/19/18 12:30 03/19/18 12:30 General appearance: no acute distress Exam: alert and oriented x3 - Head Head exam: Present: atraumatic, normocephalic - ENT ENT exam: Present: normal exam - Respiratory Respiratory exam: Present: CTAB. Absent: rhonchi, wheezes - Cardiovascular Cardiovascular exam: Present: RRR - GI/Abdominal GI/Abdominal exam: Present: normal bowel sounds, soft - Expanded Lower Extremity Exam Lower Leg exam: Present: swelling (Bilateral lower extremities with soft cast and sherine bandaging to protect heel ulcers bilaterally. Right leg with +2 pitting edema and chronic venous stasis appearance. Left leg has boot up to knee. No signs of crepitus or foul smelling discharge.) - Skin Skin exam: Present: normal color Consult Discharge Plan - Plan Additional Instructions: Follow with Dr. Taylor in wound center. Please call and make appointment prior to D/C. Referrals: Froylan Guido MD [Primary Care Provider] - Sanford Taylor DPM [Partnered Physician] - - Attending Attestation I examined this patient and my medical decision-making was reviewed with the Resident Physician. I agree with the documented findings, disposition and tr eatment plan as described except to the extent set forth below.
--- NOTE | 2018-03-19 16:21 | Podiatry Progress Note ---
Date of Encounter: 03/19/18 Time of Encounter: 14:25 - Assessment and Plan (1) Heel ulcer due to DM Current Visit: Yes Status: Acute Bilateral heel ulcer noted with surgical shoe and diabetic boot in place. Pathology from OR negative for OM bilaterally. Wound culture left calcaneous positive for gram - rods and gram + cocci, right calcaneous positive for gram + cocci Blood cultures pending. ID following for ATB treatment. Do not change dressing until seen in wound clinic. Will continue to follow. Patient to follow in the wound clinic with Dr. Taylor upon D/C. Qualifiers: Diabetes mellitus type: type 2 Laterality: left Non-pressure ulcer stage: unspecified non-pressure ulcer stage Qualified Code(s): E11.621 - Type 2 diabetes mellitus with foot ulcer; L97.429 - Non-pressure chronic ulcer of left heel and midfoot with unspecified severity (2) Diabetes mellitus type 2 in obese Current Visit: Yes Status: Chronic Last hemoglobin A1c in 2013 6.7 Currently on sliding-scale insulin and hospital. Blood glucose levels 140s. Diabetic diet Continue to control blood glucose to promote wound healing. Primary following Subjective Principal diagnosis: BETH, cellulitis of left foot Interval history: Patient asleep upon entering room. Objective - Vital Signs Vital Signs: Vital Signs Temp Pulse Resp BP Pulse Ox 03/19/18 16:09 18 94 03/19/18 15:30 98.6 F 72 18 127/75 94 03/19/18 12:30 98 F 79 16 146/66 93 03/19/18 10:56 16 95 03/19/18 07:30 96.5 F L 75 16 150/93 95 03/19/18 04:28 12 97 03/19/18 04:23 97.5 F L 73 13 110/66 97 03/18/18 22:10 15 94 03/18/18 21:05 92 03/18/18 18:25 98.0 F 82 16 144/81 92 Intake and Output 03/19/18 03/19/18 03/19/18 07:59 15:59 23:59 Intake Total 0 / 0 480 / 480 Output Total 1500 / 1500 Balance 0 / 0 -1020 / -1020 Intake: Oral 0 / 0 480 / 480 Output: Urine 1500 / 1500 Other: Meal Lunch Percent of Meal Consumed 100% # Voids 2 # Bowel Movements 0 Weight 142 kg Blood Glucose* 227 Patient Weight 03/19/18 23:59 Weight 142 kg - Lab Result Diagrams: 03/19/18 04:04 03/19/18 04:04 Labs: Abnormal lab results RBC 3.34 M/mcL (4.19-5.50) L 03/19/18 04:04 Hgb 10.8 g/dL (12.9-16.9) L 03/19/18 04:04 Hct 33.9 % (37.5-50.1) L 03/19/18 04:04 MCV 101.5 fL (83.0-100.0) H 03/19/18 04:04 Plt Count 120 K/mcL (140-400) L 03/19/18 04:04 ESR 80 mm/hr (0-10) H 03/13/18 12:35 PT 15.5 Seconds (9.4-12.1) H 03/18/18 05:35 BUN 27 mg/dL (6-20) H 03/19/18 04:04 Creatinine 3.50 mg/dL (0.70-1.30) H 03/19/18 04:04 Est GFR ( Amer) 23 (> 60) L 03/19/18 04:04 Est GFR (Non-Af Amer) 19 (> 60) L 03/19/18 04:04 Glucose 143 mg/dL (70-105) H 03/19/18 04:04 POC Glucose 165 mg/dL (70-99) H 03/18/18 10:53 Creatine Kinase 17 Units/L (30-223) L 03/18/18 05:35 C-Reactive Protein 54 mg/L (Less than 10) H 03/13/18 12:35 Albumin 2.9 g/dL (3.5-5.7) L 03/18/18 05:35 Vancomycin Trough 15 mcg/mL (5-10) H 03/15/18 01:12 Microbiology, Last 48 Hours 03/15/18 15:43 Wound Culture - Preliminary Left Foot Gram Negative Roosevelt Gram Positive Cocci 03/15/18 15:30 Wound Culture - Preliminary Right Foot Gram Positive Cocci 03/15/18 15:43 Surgical Biopsy Culture - Preliminary Left Foot 03/15/18 15:43 Surgical Biopsy Culture - Preliminary Right Foot 03/13/18 12:35 Blood Culture - Final Peripheral Venipuncture No growth. Final report. 03/13/18 13:00 Blood Culture - Final Peripheral Venipuncture No growth. Final report. Consult Discharge Plan - Plan Additional Instructions: Follow with Dr. Taylro in wound center. Please call and make appointment prior to D/C. Referrals: Froylan Guido MD [Primary Care Provider] - Sanford Taylor DPM [Partnered Physician] -
--- NOTE | 2018-03-19 16:54 | Internal Med Progress Note ---
Hospitalist Progress Note - Encounter Date of Encounter: 03/19/18 Time of Encounter: 16:51 - Subjective Interval History: Pt denies fever, chills, N/V, abdominal pain or diarrhea. She denies CP or SOB. - Exam Vitals: Temp Pulse Resp BP Pulse Ox 98.6 F 72 18 127/75 94 03/19/18 15:30 03/19/18 15:30 03/19/18 16:09 03/19/18 15:30 03/19/18 16:09 Exam: AAO x 3, in NAD HEENT: NC/AT, PERRL Neck: Supple, no JVD Lungs: CTA b/l, left chest wall tenderness d/t rib fracture, scattered wheezes b/l Heart: S1S2, RRR Abd: Soft, NT Ext: B/L heel ulcer, mild leg edema Neuro: Decreased sensation on both feet. - Assessment and Plan (1) Heel ulcer Current Visit: Yes Status: Acute Assessment and Plan: Pt has DM neuropathy. Has b/l heels ulcer. - Pt seen by podiatry and s/p bone bx B/L calcaneus - X-ray shows cellulitis, no gas identified. - Cont Zosyn, change linezolid to daptomycin per ID. - Blood no growth. Wound culture so far growing Gram neg venu and gram + cocci. - Bone biopsy sent by podiatry and results pending. - ID consulting and awaiting on final culture results to aide in appropriate antibiotic therapy at discharge. (2) HTN (hypertension) Current Visit: No Status: Chronic Assessment and Plan: Cont home meds. Holding lisinopril and HCTZ due to BETH. BP stable (3) Diabetes mellitus Current Visit: No Status: Chronic Assessment and Plan: Placed pt on SSI and glucose stable (4) COPD (chronic obstructive pulmonary disease) Current Visit: No Status: Chronic Assessment and Plan: Stable, cont home meds, add scheduled and PRN duoneb, dc IVF.. (5) Fracture of three ribs of left side Current Visit: No Status: Acute Assessment and Plan: Cont pain control as needed. (6) CHLOE (obstructive sleep apnea) Current Visit: Yes Status: Acute Assessment and Plan: Cont CPAP during night (7) Morbid obesity Current Visit: Yes Status: Acute Assessment and Plan: Need lifestyle modification such as diet and exercise as outpatient. (8) Acute renal failure Current Visit: Yes Status: Acute Assessment and Plan: Increased Cr to 3.42 today. Possibly multiple factorial including vanco use, in fection, on ACEI and HCTZ. - Vancomycin changed to daptomycin. - Dosing Zosyn per renal function. Dose Lyrica and Risperidone as well per renal function - Holding lisinopril and HCTZ - Fluids held as pt has increased wheezes. - Avoid nephrotoxic medications. - Closely follow up renal function. - Strict I/O - Nephro consulting. Retroperitoneal US normal (9) Tobacco abuse Current Visit: No Status: Chronic Assessment and Plan: Smoking cessation education. Place pt on nicotine patch. (10) Alcohol abuse Current Visit: No Status: Chronic Assessment and Plan: No signs of withdraw, CIWA protocol ordered on admission but had been asymptomatic. DVT Prophylaxis: Heparin SC - Summary of Assessment and Plan Summary of Assessment and Plan: Mr. Parish is a 47 year old male present to ER for B/L feet ulcer on the heels area. PMH is significant for DM with neuropathy, HTN, COPD, CHLOE on CPAP, GERD, tobacco abuse, alcohol abuse. Pt said he start to have b/l heel ulcer since about 2 months ago. He can see them but cannot feel them. Since about 2 weeks ago, he start to feel pain on left heel and intermittent pain on right heel, when he walks. Pt denies fever but feel chills occassionally. Pt denies headache, SOB, chest pain, abd pain, nausea or vomiting, diarrhea or urination symptoms. Pt had mechanical fall 2 weeks ago with left side rib fracture. - Time Spent with Patient Total time spent is greater than 50% in coordination of care (as documented) at patient's floor/unit and/or counseling patient: less than 15 minutes Plan of Care Discussed with: patient Internal Medicine: Result - Labs CBC & Chem 7: 03/19/18 04:04 03/19/18 04:04 Labs: Short CBC 03/19/18 Range/Units 04:04 WBC 6.7 (4.3-11.1) K/mcL Hgb 10.8 L (12.9-16.9) g/dL Hct 33.9 L (37.5-50.1) % Plt Count 120 L (140-400) K/mcL Neutrophils # 4.1 (1.6-8.9) K/mcL BMP 03/19/18 04:04 Sodium 139 Potassium 4.4 Chloride 106 Carbon Dioxide 23 BUN 27 H Creatinine 3.50 H Glucose 143 H Calcium 8.7 - ABG Interpretation ABG results: PT/INR, D-dimer PT 15.5 Seconds (9.4-12.1) H 03/18/18 05:35 Consult Discharge Plan - Plan Additional Instructions: Follow with Dr. Taylor in wound center. Please call and make appointment prior to D/C. Referrals: Froylan Guido MD [Primary Care Provider] - Sanford Taylor DPM [Partnered Physician] - (1) Heel ulcer Qualifiers: Laterality: unspecified laterality Non-pressure ulcer stage: limited to breakdown of skin Qualified Code(s): L97.401 - Non-pressure chronic ulcer of unspecified heel and midfoot limited to breakdown of skin (2) HTN (hypertension) Qualifiers: Hypertension type: essential hypertension Qualified Code(s): I10 - Essential (primary) hypertension (3) Diabetes mellitus Qualifiers: Diabetes mellitus type: type 2 Diabetes mellitus prison insulin use: without prison use Diabetes mellitus complication status: with skin complications Diabetes mellitus complication detail: with foot ulcer Qualified Code(s): E11.621 - Type 2 diabetes mellitus with foot ulcer; L97.509 - Non- pressure chronic ulcer of other part of unspecified foot with unspecified severity (4) COPD (chronic obstructive pulmonary disease) Qualifiers: COPD type: unspecified COPD Qualified Code(s): J44.9 - Chronic obstructive pulmonary disease, unspecified (5) Fracture of three ribs of left side Qualifiers: Encounter type: subsequent encounter Fracture type: closed Fracture healing: with routine healing Qualified Code(s): S22.42XD - Multiple fractures of ribs, left side, subsequent encounter for fracture with routine healing (8) Acute renal failure Qualifiers: Acute renal failure type: with other specified pathological lesion Qualified Code(s): N17.8 - Other acute kidney failure
[2018-03-19] MEDS: traZODone 50 MG TABLET PO SCH (21:57)
[2018-03-20] MEDS: Ipratropium/Albuterol Neb 3 ML IH SCH ×4 (03:25→22:32)
[2018-03-20] MEDS: Piperacillin/Tazobactam 3.375 GM in 0.9 % Sodium Chloride Mini Bag 100 ML IVPB SCH ×2 (05:37→17:25)
[2018-03-20] MEDS: *HR* Heparin 5,000 UNIT/ML VIAL SQ SCH ×2 (05:38→17:26)
[2018-03-20] MEDS: *HR* OxyCODONE/APAP 5/325 TABLET PO PRN ×3 (07:04→18:32)
[2018-03-20] MEDS: Insulin LISPRO 300 UNITS/3 ML VIAL SQ SCH ×4 (08:12→21:42)
[2018-03-20] MEDS: risperiDONE 1 MG TABLET PO SCH ×2 (08:13→21:50)
[2018-03-20] MEDS: Metoprolol XL (24 HR) Succ 50 MG TAB.ER.24H PO SCH ×2 (08:13→21:50)
[2018-03-20] MEDS: Pregabalin 75 MG CAPSULE PO SCH (08:13)
[2018-03-20] MEDS: Multivit/Ca/Min/Fe/FA 1 TAB TABLET PO SCH (08:14)
[2018-03-20] MEDS: Fluticasone Propionate Nasal 50 MCG/SPRAY BOTTLE NS SCH (08:14)
--- NOTE | 2018-03-20 10:19 | Infectious Disease Progress No ---
Date of Encounter: 03/20/18 Time of Encounter: 10:16 - Assessment and Plan (1) Heel ulcer due to DM Current Visit: Yes Status: Acute - Patient has meant 0/4 sirs criteria on admission -CBC not completed today - Postoperative day #5 from bilateral heel surgical graft - Clinically patient is complaining of no pain, discharge, erythema - ESR 80, CRP 54 on 03/13 - Creatinine kinase 17 on 03/18 - Blood cultures from 03/13 no growth 2 final - Patient does have a past history of wound cultures of left first toe including positive growth for Pseudomonas, MRSA, MSSA, group B strep - X-ray of bilateral foot on 03/13 shows mild soft tissue swelling and likely cellulitis with no obvious osteomyelitis findings. - Was initially started on vancomycin and Zosyn in the emergency department. Vancomycin was stopped on 03/15 due to acute kidney injury after 3 day course. Zyvox was stopped due to interactions with trazodone as well as potential duration of treament possibly 6 weeks. Left foot culture wounds have come back positive for gram positive cocci and psuedomonas fluorescens. The psuedomonas fluorescens is susceptible to cefepime, ceftazidime, ciprofloxacin, gentamicin, and zoysn amongst others. Right foot culture wounds have come back positive for gram positive cocci. Surgical Bone Biopsy taken on 03/15 has come back for gram positive rods, awaiting susceptibility report. Surgical pathology report has come back with the following results: Right foot bone biopsy shows benign bone, cartilage, adipose tissue and negative for osteomyelitis. Left bone biospy: portion of benign bone and negative for osteomyelitis Plan: -Continue antibiotic treatment of Zoysn (day 8) and daptomycin (day 3) for coverage of the foot wounds bilaterally -monitor CK -Podiatry following, appreciate recommendations Qualifiers: Diabetes mellitus type: type 2 Laterality: left Non-pressure ulcer stage: unspecified non-pressure ulcer stage Qualified Code(s): E11.621 - Type 2 diabetes mellitus with foot ulcer; L97.429 - Non-pressure chronic ulcer of left heel and midfoot with unspecified severity (2) Acute renal failure Current Visit: Yes Status: Acute BMP ordered and in process. Baseline creatinine is around 0.7-1.0 Could possibly be secondary to vancomycin treatment. Continue to monitor renal function, renally dose antibiotics. Managment per primary team, nephorology is following Qualifiers: Acute renal failure type: with other specified pathological lesion Qualified Code(s): N17.8 - Other acute kidney failure (3) Diabetes mellitus Current Visit: No Status: Chronic well-controlled diabetes with most recent A1C of 5.4% on October 2017. blood sugars are under control since admission further management per primary team Qualifiers: Diabetes mellitus type: type 2 Diabetes mellitus rat exterminator insulin use: without rat exterminator use Diabetes mellitus complication status: with skin complications Diabetes mellitus complication detail: with foot ulcer Qualified Code(s): E11.621 - Type 2 diabetes mellitus with foot ulcer; L97.509 - Non-pressure chronic ulcer of other part of unspecified foot with unspecified severity (4) Alcohol abuse Current Visit: No Status: Chronic Patient is on CIWA protocol. Discussed with nursing staff. - Subjective Interval history: Patient is seen. Appears comfortable and in no acute distress. Upon questioning denies fever, chills, night sweats and myalgia's. Denies SOB and chest pain. Denies hemoptysis. Denies nausea, vomiting, diarrhea or abdominal pain. Admits to left sided flank pain which is expected due to left rib fracture. Denies other joint pain. Denies pain in left and right legs, most likely due to pain medications. Denies Radiation of pain. Reports no other skin lesions or oral thrush. Infect Dis PN-Objective Data - Labs CBC & Chem 7: 03/22/18 03:30 03/22/18 03:30 Labs: Laboratory Results - last 24 hr 03/17/18 03/17/18 03/18/18 12:03 16:10 16:14 POC Glucose 185 H 167 H 173 H 03/18/18 03/19/18 03/19/18 20:17 16:11 20:07 POC Glucose 171 H 184 H 151 H 03/20/18 07:46 POC Glucose 171 H Cultures: Cultures 03/15/18 15:43 Surgical Biopsy Culture - Preliminary Left Foot Gram Positive Rods 03/15/18 15:43 Wound Culture - Preliminary Left Foot Pseudomonas fluorescens Gram Positive Cocci 03/15/18 15:30 Wound Culture - Preliminary Right Foot Gram Positive Cocci 03/15/18 15:43 Surgical Biopsy Culture - Preliminary Right Foot 03/13/18 12:35 Blood Culture - Final Peripheral Venipuncture No growth. Final report. 03/13/18 13:00 Blood Culture - Final Peripheral Venipuncture No growth. Final report. Serology 03/17/18 Range/Units 18:00 Ur Eosinophil Smear 0 (None Seen) % Exam - Constitutional Vitals: Temp Pulse Resp BP Pulse Ox 98.7 F 84 16 134/78 93 03/20/18 06:25 03/20/18 06:25 03/20/18 06:25 03/20/18 06:25 03/20/18 06:25 General appearance: no acute distress, obese - Head Head exam: Present: normal inspection, normocephalic - ENT ENT exam: Present: normal exam - Respiratory Respiratory exam: Present: CTAB - Cardiovascular Cardiovascular exam: Present: RRR - GI/Abdominal GI/Abdominal exam: Present: normal bowel sounds, soft. Absent: tenderness - Expanded Lower Extremity Exam Hip exam: Absent: swelling (wer) Lower Leg exam: Present: swelling (swelling (Bilateral lower extremities with soft cast and sherine bandaging to protect heel ulcers bilaterally. Right leg with +2 pitting edema and chronic venous stasis appearance. Left leg has boot up to knee. No signs of crepitus or foul smelling discharge.) - Skin Skin exam: Present: normal color Consult Discharge Plan - Plan Instructions: Acute Kidney Injury (DC), Diabetes Mellitus Type 2 in Adults (DC) Additional Instructions: Follow with Dr. Taylor in wound center on Sunday. Please call and make appointment prior to D/C. Follow up with ID and Nephrology Referrals: Froylan Guido MD [Primary Care Provider] - Sanford Taylor DPM [Partnered Physician] - Prescriptions: OxyCODONE/APAP 5/325 [Percocet 5/325 MG] 1 each PO Q6HR PRN 5 Days #15 tablet PRN Reason: Pain RX: GlipiZIDE XL (24 HR) [Glucotrol XL] 2.5 mg PO DAILY #30 tab.er.[id number] Cdeutirvfluo-Aegd-Neogdmym,Iso [Zosyn 4.5 gm/100 ml Galaxy Bag] 4.5 gm IV Q8H #42 [email or web address] - Attending Attestation I examined this patient and my medical decision-making was reviewed with the Resident Physician. I agree with the documented findings, disposition and treatment plan as described except to the extent set forth below.
--- NOTE | 2018-03-20 11:56 | Podiatry Progress Note ---
Date of Encounter: 03/20/18 Time of Encounter: 10:15 - Assessment and Plan (1) Heel ulcer due to DM Current Visit: Yes Status: Acute Bilateral heel ulcer noted with surgical shoe and diabetic boot in place. Pathology from OR negative for OM bilaterally. Wound culture left calcaneous positive for psuedomonas and gram + cocci, right calcaneous positive for gram + cocci Surgical culture left foot positive for gram + cocci, right foot preliminary negative Blood cultures pending. ID following for ATB treatment. Do not change dressing until seen in wound clinic. OK to D/C once cleared with ID and Internal Medicine. Patient to follow in the wound clinic with Dr. Taylor upon D/C. Qualifiers: Diabetes mellitus type: type 2 Laterality: left Non-pressure ulcer stage: unspecified non-pressure ulcer stage Qualified Code(s): E11.621 - Type 2 diabe chago mellitus with foot ulcer; L97.429 - Non-pressure chronic ulcer of left heel and midfoot with unspecified severity (2) Diabetes mellitus type 2 in obese Current Visit: Yes Status: Chronic Last hemoglobin A1c in 2013 6.7 Currently on sliding-scale insulin and hospital. Blood glucose levels 190s. Diabetic diet Continue to control blood glucose to promote wound healing. Instructed the patient to continue blood glucose control at home to promote wound healing Primary following (3) Tobacco abuse Current Visit: No Status: Chronic Educated patient on risks of tobacco abuse. Educated patient of impaired wound healing due to tobacco abuse. Patient states he would like nicotine patches to go home with upon discharge. Internal med to evaluate Subjective Principal diagnosis: BETH, cellulitis of left foot Interval history: Patient asleep upon entering room. Awakens to voice. Reports wanting to go home today. Denies pain. Objective - Vital Signs Vital Signs: Vital Signs Temp Pulse Resp BP Pulse Ox 03/20/18 06:25 98.7 F 84 16 134/78 93 03/20/18 03:26 13 98 03/20/18 02:54 98.3 F 75 13 118/68 98 03/19/18 22:14 92 03/19/18 21:45 18 92 03/19/18 18:21 98.5 F 89 16 162/79 93 03/19/18 16:09 18 94 03/19/18 15:30 98.6 F 72 18 127/75 94 03/19/18 12:30 98 F 79 16 146/66 93 Intake and Output 03/19/18 03/20/18 03/20/18 23:59 07:59 15:59 Intake Total 100 / 100 0 / 0 220 / 220 Output Total 600 / 600 Balance -500 / -500 0 / 0 220 / 220 Intake: IV Fluids 100 / 100 100 / 100 Zosyn 3.375 GM In 0.9 % Sodium 100 / 100 100 / 100 Chloride (Mini-Bag +) 100 ML @ 25 mls/hr IVPB Q12H [facility] Rx#: [id number] Oral 0 / 0 120 / 120 Output: Urine 600 / 600 Other: Meal Breakfast Percent of Meal Consumed 25% # Voids 2 Weight 143.2 kg Blood Glucose* 151 171 Patient Weight 03/20/18 23:59 Weight 143.2 kg - Exam Exam: Constitiutional: Alert and oriented x 3. Vascular: 1/4 DP/PT bilaterally, CFT <3 sec to all digits, warm to warm from tibia to toes bilaterally, 2+/4 edema noted bilaterally Neurologic: Diminished sensation to touch, normal plantar response Dermatologic: Right lateral calcaneous with dressing in place and surgical shoe. Left lateral calcaneous with dressing in place with diabetic boot in place. Musculoskeletal: 3/5 muscle strength and normal tone bilaterally. - Lab Result Diagrams: 03/19/18 04:04 03/19/18 04:04 Labs: Abnormal lab results RBC 3.34 M/mcL (4.19-5.50) L 03/19/18 04:04 Hgb 10.8 g/dL (12.9-16.9) L 03/19/18 04:04 Hct 33.9 % (37.5-50.1) L 03/19/18 04:04 MCV 101.5 fL (83.0-100.0) H 03/19/18 04:04 Plt Count 120 K/mcL (140-400) L 03/19/18 04:04 ESR 80 mm/hr (0-10) H 03/13/18 12:35 PT 15.5 Seconds (9.4-12.1) H 03/18/18 05:35 BUN 27 mg/dL (6-20) H 03/19/18 04:04 Creatinine 3.50 mg/dL (0.70-1.30) H 03/19/18 04:04 Est GFR ( Amer) 23 (> 60) L 03/19/18 04:04 Est GFR (Non-Af Amer) 19 (> 60) L 03/19/18 04:04 Glucose 143 mg/dL (70-105) H 03/19/18 04:04 POC Glucose 171 mg/dL (70-99) H 03/20/18 07:46 Creatine Kinase 17 Units/L (30-223) L 03/18/18 05:35 C-Reactive Protein 54 mg/L (Less than 10) H 03/13/18 12:35 Albumin 2.9 g/dL (3.5-5.7) L 03/18/18 05:35 Vancomycin Trough 15 mcg/mL (5-10) H 03/15/18 01:12 Microbiology, Last 48 Hours 03/15/18 15:43 Surgical Biopsy Culture - Preliminary Left Foot Gram Positive Rods 03/15/18 15:43 Wound Culture - Preliminary Left Foot Pseudomonas fluorescens Gram Positive Cocci 03/15/18 15:30 Wound Culture - Preliminary Right Foot Gram Positive Cocci 03/15/18 15:43 Surgical Biopsy Culture - Preliminary Right Foot 03/13/18 12:35 Blood Culture - Final Peripheral Venipuncture No growth. Final report. 03/13/18 13:00 Blood Culture - Final Peripheral Venipuncture No growth. Final report. Consult Discharge Plan - Plan Additional Instructions: Follow with Dr. Taylor in wound center on Sunday. Please call and make appointment prior to D/C. Referrals: Froylan Guido MD [Primary Care Provider] - Sanford Taylor DPM [Partnered Physician] -
[2018-03-20] MEDS: Nicotine 21 MG PATCH.TD24 TD SCH (12:39)
[2018-03-20 12:42] LABS: Calcium 8.7 mg/dL (8.6-10.3); Potassium 4.6 mEq/L (3.5-5.1)
[2018-03-20 14:08] LABS: Kappa Qnt Free Light Chains 14.2 mg/dL (0.33-1.94); Lambda Qnt Free Light Chains 8.56 mg/dL (0.57-2.63)
[2018-03-20] MEDS: DAPTOmycin 500 MG in 0.9 % Sodium Chloride 100 ML IVPB SCH (15:12)
--- NOTE | 2018-03-20 16:32 | Internal Med Progress Note ---
Hospitalist Progress Note - Encounter Date of Encounter: 03/20/18 Time of Encounter: 16:28 - Subjective Interval History: Pt denies fever, chills, N/V, abdominal pain or diarrhea. She denies CP or SOB. - Exam Vitals: Temp Pulse Resp BP Pulse Ox 98.2 F 79 18 116/69 93 03/20/18 11:58 03/20/18 11:58 03/20/18 11:58 03/20/18 11:58 03/20/18 11:58 Exam: Physical exam: AAO x 3, in NAD HEENT: NC/AT, PERRL Neck: Supple, no JVD Lungs: CTA b/l, left chest wall tenderness d/t rib fracture, scattered wheezes b/l Heart: S1S2, RRR Abd: Soft, NT Ext: B/L heel ulcer, mild leg edema Neuro: Decreased sensation on both feet. - Assessment and Plan (1) Heel ulcer Current Visit: Yes Status: Acute Assessment and Plan: Pt has DM neuropathy. Has b/l heels ulcer. - Pt seen by podiatry and s/p bone bx B/L calcaneus - X-ray shows cellulitis, no gas identified. - Cont Zosyn, change linezolid to daptomycin per ID. - Blood no growth. Wound culture so far growing Gram neg venu and gram + cocci. - Bone biopsy sent by podiatry and results pending. - ID consulting and final culture results still pending but so far showing pseudomonas and gram positive cocci. - ID recommending continue antibiotic treatment of Zoysn (day 8) and daptomycin (day 3) for coverage of the foot wounds bilaterally -monitor CK. - Pt would probably DC in am once [facility] set up for IV antibiotic infusion management. (2) HTN (hypertension) Current Visit: No Status: Chronic Assessment and Plan: Cont home meds. Holding lisinopril and HCTZ due to BETH. BP stable. Nephrology on board (3) Diabetes mellitus Current Visit: No Status: Chronic Assessment and Plan: Placed pt on SSI and glucose stable (4) COPD (chronic obstructive pulmonary disease) Current Visit: No Status: Chronic Assessment and Plan: Stable, cont home meds, add scheduled and PRN duoneb, DC IVF. (5) Fracture of three ribs of left side Current Visit: No Status: Acute Assessment and Plan: Cont pain control as needed. (6) CHLOE (obstructive sleep apnea) Current Visit: Yes Status: Acute Assessment and Plan: Cont CPAP during night (7) Morbid obesity Current Visit: Yes Status: Acute Assessment and Plan: Need lifestyle modification such as diet and exercise as outpatient. (8) Acute renal failure Current Visit: Yes Status: Acute Assessment and Plan: Increased Cr to 3.42 today. Possibly multiple factorial including vanco use, infection, on ACEI and HCTZ. - Vancomycin changed to daptomycin. - Dosing Zosyn per renal function. Dose Lyrica and Risperidone as well per renal function - Holding lisinopril and HCTZ - Fluids held as pt has increased wheezes. - Avoid nephrotoxic medications. - Closely follow up renal function. - Strict I/O - Nephro consulting. Retroperitoneal US normal (9) Tobacco abuse Current Visit: No Status: Chronic Assessment and Plan: Smoking cessation education. Place pt on nicotine patch. (10) Alcohol abuse Current Visit: No Status: Chronic Assessment and Plan: No signs of withdraw, CIWA protocol ordered on admission but had been asymptomatic. DVT Prophylaxis: Heparin SC - Summary of Assessment and Plan Summary of Assessment and Plan: Mr. Parish is a 47 year old male present to ER for B/L feet ulcer on the heels area. PMH is significant for DM with neuropathy, HTN, COPD, CHLOE on CPAP, GERD, tobacco abuse, alcohol abuse. Pt said he start to have b/l heel ulcer since about 2 months ago. He can see them but cannot feel them. Since about 2 weeks ago, he start to feel pain on left heel and intermittent pain on right heel, when he walks. Pt denies fever but feel chills occassionally. Pt denies headache, SOB, chest pain, abd pain, nausea or vomiting, diarrhea or urination symptoms. Pt had mechanical fall 2 weeks ago with left side rib fracture. - Time Spent with Patient Total time spent is greater than 50% in coordination of care (as documented) at patient's floor/unit and/or counseling patient: less than 15 minutes Internal Medicine: Result - Labs CBC & Chem 7: 03/19/18 04:04 03/20/18 09:26 Labs: BMP 03/20/18 09:26 Sodium 139 Potassium 4.6 Chloride 108 H Carbon Dioxide 21 L BUN 27 H Creatinine 3.54 H Glucose 176 H Calcium 8.7 - ABG Interpretation ABG results: PT/INR, D-dimer PT 15.5 Seconds (9.4-12.1) H 03/18/18 05:35 Consult Discharge Plan - Plan Additional Instructions: Follow with Dr. Taylor in wound center on Sunday. Please call and make appointment prior to D/C. Referrals: Froylan Guido MD [Primary Care Provider] - Sanford Taylor DPM [Partnered Physician] - (1) Heel ulcer Qualifiers: Laterality: unspecified laterality Non-pressure ulcer stage: limited to breakdown of skin Qualified Code(s): L97.401 - Non-pressure chronic ulcer of unspecified heel and midfoot limited to breakdown of skin (2) HTN (hypertension) Qualifiers: Hypertension type: essential hypertension Qualified Code(s): I10 - Essential (primary) hypertension (3) Diabetes mellitus Qualifiers: Diabetes mellitus type: type 2 Diabetes mellitus group home insulin use: without color control operator use Diabetes mellitus complication status: with skin complications Diabetes mellitus complication detail: with foot ulcer Qualified Code(s): E11.621 - Type 2 diabetes mellitus with foot ulcer; L97.509 - Non- pressure chronic ulcer of other part of unspecified foot with unspecified severity (4) COPD (chronic obstructive pulmonary disease) Qualifiers: COPD type: unspecified COPD Qualified Code(s): J44.9 - Chronic obstructive pulmonary disease, unspecified (5) Fracture of three ribs of left side Qualifiers: Encounter type: subsequent encounter Fracture type: closed Fracture healing: with routine healing Qualified Code(s): S22.42XD - Multiple fractures of ribs, left side, subsequent encounter for fracture with routine healing (8) Acute renal failure Qualifiers: Acute renal failure type: with other specified pathological lesion Qualified Code(s): N17.8 - Other acute kidney failure
[2018-03-20] MEDS: traZODone 50 MG TABLET PO SCH (21:50)
--- NOTE | 2018-03-20 23:08 | Nephrology Progress Note ---
Date of Encounter: 03/20/18 Time of Encounter: 23:08 - Assessment and Plan (1) Diabetes mellitus Current Visit: No Status: Chronic Qualifiers: Diabetes mellitus type: type 2 Diabetes mellitus prison insulin use: without petroleum terminal plant operator use Diabetes mellitus complication status: with skin complications Diabetes mellitus complication detail: with foot ulcer Qualified Code(s): E11.621 - Type 2 diabetes mellitus with foot ulcer; L97.509 - Non-pressure chronic ulcer of other part of unspecified foot with unspecified severity (2) HTN (hypertension) Current Visit: No Status: Chronic Qualifiers: Hypertension type: essential hypertension Qualified Code(s): I10 - Essential (primary) hypertension (3) Alcohol abuse Current Visit: No Status: Chronic (4) Cellulitis of left foot due to methicillin-resistant Staphylococcus aureus Current Visit: No Status: Acute (5) Acute renal failure Current Visit: Yes Status: Acute Qualifiers: Acute renal failure type: with other specified pathological lesion Qualified Code(s): N17.8 - Other acute kidney failure Subjective Principal diagnosis: BETH, cellulitis of left foot Objective - Vital Signs Vital signs: Vital Signs Temp Pulse Resp BP Pulse Ox 03/20/18 22:32 12 98 03/20/18 20:39 97 03/20/18 20:38 16 97 03/20/18 19:35 98.6 F 79 15 166/85 91 03/20/18 17:07 97.9 F 80 16 148/81 94 03/20/18 11:58 98.2 F 79 18 116/69 93 03/20/18 11:05 72 92 03/20/18 06:25 98.7 F 84 16 134/78 93 03/20/18 03:26 13 98 03/20/18 02:54 98.3 F 75 13 118/68 98 Intake and Output 03/20/18 03/20/18 03/20/18 07:59 15:59 23:59 Intake Total 0 / 0 220 / 220 100 / 100 Output Total 550 / 550 0 / 0 Balance 0 / 0 -330 / -330 100 / 100 Intake: IV Fluids 100 / 100 100 / 100 Cubicin 500 MG In 0.9 % Sodium 100 / 100 Chloride 100 ML @ 200 mls/hr IVPB Q48H [facility] Rx#:[id number] Zosyn 3.375 GM In 0.9 % Sodium 100 / 100 Chloride (Mini-Bag +) 100 ML @ 25 mls/hr IVPB Q12H [facility] Rx#: [id number] Oral 0 / 0 120 / 120 0 / 0 Output: Urine 550 / 550 0 / 0 Other: Meal Breakfast Percent of Meal Consumed 25% # Voids 2 Weight 143.2 kg Blood Glucose* 171 191 165 Patient Weight 03/20/18 23:59 Weight 143.2 kg - Lab 03/19/18 04:04 03/20/18 09:26 Most recent lab results Calcium 8.7 mg/dL (8.6-10.3) 03/20/18 09:26 Phosphorus 3.6 mg/dL (2.7-4.5) 03/18/18 05:35 Magnesium 1.9 mg/dL (1.6-2.6) 03/18/18 05:35 Consult Discharge Plan - Plan Additional Instructions: Follow with Dr. Taylor in wound center on Sunday. Please call and make appoint ment prior to D/C. Referrals: Froylan Guido MD [Primary Care Provider] - Sanford Taylor DPM [Partnered Physician] -
[2018-03-20] MEDS ORDERED: Sodium Bicarbonate 75 MEQ in 0.45 % Sodium Chloride 1,000 ML IVC SCH (23:15)
[2018-03-21] MEDS: *HR* OxyCODONE/APAP 5/325 TABLET PO PRN ×5 (00:45→22:26)
[2018-03-21 01:18] LABS: Hematocrit 32.6 % (37.5-50.1); Hemoglobin 10.7 g/dL (12.9-16.9); Mean Corpuscular HGB Conc 32.8 g/dL (31.6-35.5); Mean Corpuscular Hemoglobin 32.6 pg (28.0-33.3); Mean Corpuscular Volume 99.4 fL (83.0-100.0); Red Blood Count 3.28 M/mcL (4.19-5.50); Red Cell Distribution Width 12.9 % (11.5-14.5)
[2018-03-21 01:19] LABS: Basophils % 0.4 %; Eosinophils # 0.1 K/mcL (0.0-0.6); Eosinophils % 1.9 %; Immature Granulocytes % 0.3 % (0-4); Lymphocytes # 1.6 K/mcL (0.6-4.6); Lymphocytes % 23.6 %; Mean Platelet Volume 9.4 fL (9.4-12.4); Monocytes # 0.9 K/mcL (0.0-1.3); Neutrophils # 4.1 K/mcL (1.6-8.9); Platelet Count 156 K/mcL (140-400); Segmented Neutrophils % 60.8 %
[2018-03-21] MEDS: Ipratropium/Albuterol Neb 3 ML IH SCH ×4 (05:09→22:49)
[2018-03-21] MEDS: Piperacillin/Tazobactam 3.375 GM in 0.9 % Sodium Chloride Mini Bag 100 ML IVPB SCH ×2 (05:16→17:59)
[2018-03-21] MEDS: *HR* Heparin 5,000 UNIT/ML VIAL SQ SCH ×2 (05:16→17:59)
[2018-03-21 06:08] LABS: Alpha 2 Globulin (PEP) 0.73 g/dL (0.48-1.05); Beta Globulin (PEP) 1.01 g/dL (0.48-1.10)
[2018-03-21 06:13] LABS: Calcium 8.9 mg/dL (8.6-10.3); Phosphorous 4.1 mg/dL (2.7-4.5); Potassium 4.6 mEq/L (3.5-5.1)
[2018-03-21 08:12] LABS: Complement Component 3 129 mg/dL (88-201)
[2018-03-21 08:13] LABS: Complement Component 4 22 mg/dL (10-40)
[2018-03-21] MEDS: Insulin LISPRO 300 UNITS/3 ML VIAL SQ SCH ×4 (08:13→21:47)
[2018-03-21 08:20] LABS: IFE Reflexed NOT DONE; Myeloperoxidase Ab 0 AU/mL (0-19); Serine Protease-3 Antibody 1 AU/mL (0-19)
[2018-03-21] MEDS: risperiDONE 1 MG TABLET PO SCH ×2 (08:21→21:46)
[2018-03-21] MEDS: Metoprolol XL (24 HR) Succ 50 MG TAB.ER.24H PO SCH ×2 (08:21→21:46)
[2018-03-21] MEDS: Fluticasone Propionate Nasal 50 MCG/SPRAY BOTTLE NS SCH (08:21)
[2018-03-21] MEDS: Multivit/Ca/Min/Fe/FA 1 TAB TABLET PO SCH (08:21)
[2018-03-21] MEDS: Pregabalin 75 MG CAPSULE PO SCH (08:21)
[2018-03-21] MEDS: Nicotine 21 MG PATCH.TD24 TD SCH (12:30)
--- NOTE | 2018-03-21 13:00 | Nephrology Progress Note ---
Date of Encounter: 03/21/18 Time of Encounter: 12:58 - Assessment and Plan (1) Acute renal failure Current Visit: Yes Status: Acute Scr 3.57, GFR 18-slowing trending worse UOP 550ml recorded however patient states his is urinating a lot; yesterday he had 2100ml urine output Patient is wanting to be discharged today Will obtain the following labs: UA, urine culture, BARBARA, ANCA, urine sodium, urine creatinine, urine eosinophils, CPK, uric acid, protein/creatinine ratio, rheumatoid factor, PT, PTT. Consider getting a biopsy tomorrow if patient refuses to stay in hospital; may need to go on temp dialysis. Recommend patient stay in hospital until kidney function improved. If patient leaves hospital he needs very close follow up. Qualifiers: Acute renal failure type: with other specified pathological lesion Qualified Code(s): N17.8 - Other acute kidney failure (2) Alcohol abuse Current Visit: No Status: Chronic per primary team (3) Cellulitis of left foot due to methicillin-resistant Staphylococcus aureus Current Visit: No Status: Acute per podiatry team Subjective Principal diagnosis: BETH, cellulitis of left foot Interval history: Patient seen and examined, sitting up on side of bed eating lunch, wants to go home today Objective - Vital Signs Vital signs: Vital Signs Temp Pulse Resp BP Pulse Ox 03/21/18 10:39 14 94 03/21/18 10:07 97.7 F 75 16 132/73 95 03/21/18 07:10 98.7 F 75 14 131/75 92 03/21/18 03:28 98.6 F 68 15 109/67 98 03/20/18 22:32 12 98 03/20/18 20:39 97 03/20/18 20:38 16 97 03/20/18 19:35 98.6 F 79 15 166/85 91 03/20/18 17:07 97.9 F 80 16 148/81 94 Intake and Output 03/20/18 03/21/18 03/21/18 23:59 07:59 15:59 Intake Total 200 / 200 0 / 0 220 / 220 Output Total 0 / 0 350 / 350 Balance 200 / 200 -350 / -350 220 / 220 Intake: IV Fluids 200 / 200 100 / 100 Cubicin 500 MG In 0.9 % Sodium 100 / 100 Chloride 100 ML @ 200 mls/hr IVPB Q48H [facility] Rx#:[id number] Zosyn 3.375 GM In 0.9 % Sodium 100 / 100 100 / 100 Chloride (Mini-Bag +) 100 ML @ 25 mls/hr IVPB Q12H [facility] Rx#: [id number] Oral 0 / 0 0 / 0 120 / 120 Output: Urine 0 / 0 350 / 350 Other: Meal Breakfast Percent of Meal Consumed 25% # Voids 1 Weight 143.3 kg Blood Glucose* 165 123 181 Patient Weight 03/21/18 23:59 Weight 143.3 kg - General Appearance General appearance: Present: well-developed, well-nourished, obese EENT: Present: ATNC, mucous membranes moist, hearing intact, vision intact Neck: Present: supple Respiratory: Present: clear Cardiology: Present: edema, normal S1, normal S2 Gastrointestinal: Present: no tenderness, no guarding, obese Integumentary: Present: warm and dry Neurologic: Present: alert and oriented x3 Psychiatric: Present: mood/affect appropriate, cooperative - Lab 03/21/18 00:58 03/21/18 05:25 Most recent lab results Calcium 8.9 mg/dL (8.6-10.3) 03/21/18 05:25 Phosphorus 4.1 mg/dL (2.7-4.5) 03/21/18 05:25 Magnesium 1.9 mg/dL (1.6-2.6) 03/18/18 05:35 Consult Discharge Plan - Plan Additional Instructions: Follow with Dr. Taylor in wound center on Sunday. Please call and make a ppointment prior to D/C. Referrals: Froylan Guido MD [Primary Care Provider] - Sanford Taylor DPM [Partnered Physician] -
--- NOTE | 2018-03-21 14:13 | Internal Med Progress Note ---
Hospitalist Progress Note - Encounter Date of Encounter: 03/21/18 Time of Encounter: 13:00 - Subjective Interval History: Pt was seen and examined at bed side. he is resting comfortably. Wants to go home today. Denied any CP / SOB. No fever / chills. - Exam Vitals: Temp Pulse Resp BP Pulse Ox 98.2 F 72 17 125/73 92 03/21/18 14:04 03/21/18 14:04 03/21/18 14:04 03/21/18 14:04 03/21/18 14:04 Exam: Gen: Alert, awake, Oriented to time,place and person Chest: Diminished breath sounds B/L, No wheezing, No crackles, No rales Heart: S1S2+ RRR No murmurs Abd: Soft, NT, BS +, No organomegaly Ext: No calf tenderness, dressing placed on both heels.. No tenderness noticed. JASON boot on Rt foot Neuro : Benign findings Skin: No rash. - Assessment and Plan (1) Heel ulcer Current Visit: Yes Status: Acute Assessment and Plan: s/p bone bx B/L calcaneus X-ray shows cellulitis, no gas identified. Wound cx - Pesudomonas, Enterococcus and G+ve rods still waiting on final susceptibility Cont Zosyn # 9 daptomycin # 4 Appreicate ID recommendations Bone biopsy sent by podiatry and results pending. Pt would probably DC in am once [facility] set up for IV antibiotic infusion management Talked to pt about this plan (2) Acute renal failure Current Visit: Yes Status: Acute Assessment and Plan: Cr still trending high .. Today @ 3.57 Mostly due to Abx induced ATN / AIN Non oliguric cont close monitoring avoid nephro toxic meds Appreciate Nephrology recommendations Urine out put 550 CC y/d strict I & O (3) Fracture of three ribs of left side Current Visit: No Status: Acute Assessment and Plan: Cont pain control as needed. (4) Diabetes mellitus Current Visit: No Status: Chronic Assessment and Plan: ADA diet HbA1C 5.4 from 11/05 Cont ISS (5) HTN (hypertension) Current Visit: No Status: Chronic Assessment and Plan: Stable with current regimen Holding lisinopril and HCTZ due to BETH. (6) COPD (chronic obstructive pulmonary disease) Current Visit: No Status: Chronic Assessment and Plan: Not in exacerbation cont current INH regimen (7) Tobacco abuse Current Visit: No Status: Chronic Assessment and Plan: Smoking cessation education. on nicotine patch. (8) Alcohol abuse Current Visit: No Status: Chronic Assessment and Plan: No signs of withdraw, CIWA protocol ordered on admission but had been asymptomatic. (9) CHLOE (obstructive sleep apnea) Current Visit: Yes Status: Acute Assessment and Plan: Cont CPAP during night (10) Morbid obesity Current Visit: Yes Status: Acute Assessment and Plan: Need lifestyle modification such as diet and exercise as outpatient. - Time Spent with Patient Total time spent is greater than 50% in coordination of care (as documented) at patient's floor/unit and/or counseling patient: Internal Medicine: Result - Labs CBC & Chem 7: 03/21/18 00:58 03/21/18 05:25 Labs: Short CBC 03/21/18 Range/Units 00:58 WBC 6.8 (4.3-11.1) K/mcL Hgb 10.7 L (12.9-16.9) g/dL Hct 32.6 L (37.5-50.1) % Plt Count 156 (140-400) K/mcL Neutrophils # 4.1 (1.6-8.9) K/mcL BMP 03/21/18 05:25 Sodium 138 Potassium 4.6 Chloride 107 Carbon Dioxide 22 L BUN 25 H Creatinine 3.57 H Glucose 106 H Calcium 8.9 Liver Function 03/21/18 Range/Units 05:25 Albumin 3.0 L (3.5-5.7) g/dL - ABG Interpretation ABG results: PT/INR, D-dimer PT 15.5 Seconds (9.4-12.1) H 03/18/18 05:35 - Impressions Impressions Chest X-Ray 03/21/18 23:57 IMPRESSION: Bilateral patchy interstitial and alveolar opacities which could represent mild edema or multifocal pneumonia. D/ : / 03/21/2018 07:26:43 Alexandru Kiser MD / popeye Interpreting Provider: Alexandru Kiser MD Consult Discharge Plan - Plan Additional Instructions: Follow with Dr. Taylor in wound center on Wednesday. Please call and make appointment prior to D/C. Referrals: Froylan Guido MD [Primary Care Provider] - Sanford Taylor DPM [Partnered Physician] - (1) Heel ulcer Qualifiers: Laterality: unspecified laterality Non-pressure ulcer stage: limited to breakdown of skin Qualified Code(s): L97.401 - Non-pressure chronic ulcer of unspecified heel and midfoot limited to breakdown of skin (2) Acute renal failure Qualifiers: Acute renal failure type: with other specified pathological lesion Qualified Code(s): N17.8 - Other acute kidney failure (3) Fracture of three ribs of left side Qualifiers: Encounter type: subsequent encounter Fracture type: closed Fracture healing: with routine healing Qualified Code(s): S22.42XD - Multiple fractures of ribs, left side, subsequent encounter for fracture with routine healing (4) Diabetes mellitus Qualifiers: Diabetes mellitus type: type 2 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: without remote computer terminal operator use Diabetes mellitus complication status: with skin complications Diabetes mellitus complication detail: with foot ulcer Qualified Code(s): E11.621 - Type 2 diabetes mellitus with foot ulcer; L97.509 - Non-pressure chronic ulcer of other part of unspecified foot with unspecified severity (5) HTN (hypertension) Qualifiers: Hypertension type: essential hypertension Qualified Code(s): I10 - Essential (primary) hypertension (6) COPD (chronic obstructive pulmonary disease) Qualifiers: COPD type: unspecified COPD Qualified Code(s): J44.9 - Chronic obstructive pulmonary disease, unspecified
[2018-03-21 14:28] LABS: Adenovirus Not Detected (Not Detect); Bordetella Pertussis Not Detected (Not Detect); Chlamydophila pneumoniae Not Detected (Not Detect); Coronavirus 229E Not Detected (Not Detect); Coronavirus HKU1 Not Detected (Not Detect); Coronavirus NL63 Not Detected (Not Detect); Coronavirus OC43 Not Detected (Not Detect); Human Metapneumovirus Not Detected (Not Detect); Human Rhinovirus/Enterovirus Not Detected (Not Detect); Influenza A Subtype 2009 H1 Not Detected (Not Detect); Influenza A Untypeable Not Detected (Not Detect); Influenza B Not Detected (Not Detect); Mycoplasma pneumoniae Not Detected (Not Detect); Parainfluenza Virus 1 Not Detected (Not Detect); Parainfluenza Virus 2 Not Detected (Not Detect); Parainfluenza Virus 3 Not Detected (Not Detect); Parainfluenza Virus 4 Not Detected (Not Detect); Respiratory Syncytial Virus Not Detected (Not Detect)
--- NOTE | 2018-03-21 14:31 | Infectious Disease Progress No ---
Date of Encounter: 03/20/18 Time of Encounter: 12:30 - Assessment and Plan (1) Heel ulcer due to DM Current Visit: Yes Status: Acute - Patient has meant 0/4 sirs criteria on admission -WBC is 6.8 with normal differentiation - Postoperative day #6 from bilateral heel surgical graft - Clinically patient is complaining of no pain, discharge, erythema - ESR 80, CRP 54 on 03/13 - Creatinine kinase 17 on 03/18 - Blood cultures from 03/13 no growth 2 final - Patient does have a past history of wound cultures of left first toe including positive growth for Pseudomonas, MRSA, MSSA, group B strep - X-ray of bilateral foot on 03/13 shows mild soft tissue swelling and likely cellulitis with no obvious osteomyelitis findings. - Was initially started on vancomycin and Zosyn in the emergency department. Vancomycin was stopped on 03/15 due to acute kidney injury after 3 day course. Zyvox was stopped due to interactions with trazodone as well as potential duration of treament possibly 6 weeks. Left foot culture wounds have come back positive for enterococcus avium, awaiting susceptiblity and psuedomonas fluorescens. The psuedomonas fluorescens is susceptible to cefepime, ceftazidime, ciprofloxacin, gentamicin, and zoysn amongst others. Right foot culture wounds have come back positive for Enterococcus avium, awaiting susceptibility. Surgical Bone Biopsy taken on 03/15 has come back for gram positive rods, awaiting susceptibility report. Surgical pathology report has come back with the following results: Right foot bone biopsy shows benign bone, cartilage, adipose tissue and negative for osteomyelitis. Left bone biospy: portion of benign bone and negative for osteomyelitis Plan: -Continue antibiotic treatment of Zoysn (day 9) and daptomycin (day 4) for coverage of the foot wounds bilaterally -monitor CK -Podiatry following, appreciate recommendations Qualifiers: Diabetes mellitus type: type 2 Laterality: left Non-pressure ulcer stage: unspecified non-pressure ulcer stage Qualified Code(s): E11.621 - Type 2 diabetes mellitus with foot ulcer; L97.429 - Non-pressure chronic ulcer of left heel and midfoot with unspecified severity (2) Acute renal failure Current Visit: Yes Status: Acute BUN/ Cr is 25/3.57 respectively Baseline creatinine is around 0.7-1.0 Could possibly be secondary to vancomycin treatment. Continue to monitor renal function, renally dose antibiotics. Managment per primary team, nephorology is following Qualifiers: Acute renal failure type: with other specified pathological lesion Qualified Code(s): N17.8 - Other acute kidney failure (3) Diabetes mellitus Current Visit: No Status: Chronic well-controlled diabetes with most recent A1C of 5.4% on October 2017. blood sugars are under control since admission further management per primary team Qualifiers: Diabetes mellitus type: type 2 Diabetes mellitus custodial insulin use: without custodial use Diabetes mellitus complication status: with skin complications Diabetes mellitus complication detail: with foot ulcer Qualified Code(s): E11.621 - Type 2 diabetes mellitus with foot ulcer; L97.509 - Non-pressure chronic ulcer of other part of unspecified foot with unspecified severity (4) Alcohol abuse Current Visit: No Status: Chronic Patient is on CIWA protocol. Discussed with nursing staff. - Subjective Interval history: Patient is seen. Appears comfortable and in no acute distress. Upon questioning denies fever, chills, night sweats and myalgia's. Denies SOB and ch est pain. Admits to cough with brown sputum discharge. Admits to a small amount of pain upon coughing. Denies hemoptysis. Denies nausea, vomiting, diarrhea or abdominal pain. Admits to left sided flank pain which is expected due to left rib fracture. Denies other joint pain. Denies pain in left and right legs, most likely due to pain medications. Denies Radiation of pain. Reports no other skin lesions or oral thrush. -CXR done on 03/21/18 is indefinite. Urinary antigen test for strep pneumo and legionella as well as sputum culture ordered for further testing. Infect Dis PN-Objective Data - Labs CBC & Chem 7: 03/22/18 03:30 03/22/18 03:30 Labs: Laboratory Results - last 24 hr 03/17/18 03/17/18 03/17/18 13:52 13:52 13:52 WBC RBC Hgb Hct MCV MCH MCHC RDW Plt Count MPV Immature Gran % Seg Neutrophils % Lymphocytes % Monocytes % Eosinophils % Basophils % Neutrophils # Lymphocytes # Monocytes # Eosinophils # Basophils # Sodium Potassium Chloride Carbon Dioxide BUN Creatinine Est GFR ( Amer) Est GFR (Non-Af Amer) BUN/Creatinine Ratio Glucose POC Glucose Calculated Osmolality Calcium Phosphorus Prot Electrophor EER SEE NOTE Total Protein (PEP) 6.70 Albumin Albumin (PEP) 2.98 L Rckez-9-Acknvxxyd 0.44 Olcst-5-Oqqlmjhur 0.73 Beta Globulins 1.01 Gamma Globulins 1.54 H PEP Interpretation SEE NOTE Serum Immunofix Reflex NOT DONE IgG TNP IgA TNP IgM TNP Myeloperoxidase Ab Serine Protease 3 Ab Complement C3 129 Complement C4 22 Free [place] LC, Quant 14.20 H Free Lambda LC, Quant 8.56 H Free [place]/Lambda Ratio 1.66 H Chlamy pneumoniae PCR Adenovirus (PCR) B. pertussis DNA (PCR) B.parapertussis DNA PCR Coronavirus OC43 (PCR) Coronavirus HKU1 (PCR) Coronavirus 229E (PCR) Coronavirus NL63 (PCR) Human Metapneumovir PCR Influenza A (H1) PCR Influ A (H1N1/) PCR Influenza A (H3) PCR Influenza A Untype (PCR) Influenza Type B (PCR) M.pneumoniae DNA (PCR) Parainfluenza 1 (PCR) Parainfluenza 2 (PCR) Parainfluenza 3 (PCR) Parainfluenza 4 (PCR) RSV (PCR) Entero/Rhino (PCR) 03/17/18 03/19/18 03/19/18 13:52 07:58 12:25 WBC RBC Hgb Hct MCV MCH MCHC RDW Plt Count MPV Immature Gran % Seg Neutrophils % Lymphocytes % Monocytes % Eosinophils % Basophils % Neutrophils # Lymphocytes # Monocytes # Eosinophils # Basophils # Sodium Potassium Chloride Carbon Dioxide BUN Creatinine Est GFR ( Amer) Est GFR (Non-Af Amer) BUN/Creatinine Ratio Glucose POC Glucose 138 H 227 H Calculated Osmolality Calcium Phosphorus Prot Electrophor EER Total Protein (PEP) Albumin Albumin (PEP) Lfrsa-7-Nyaekmwkt Bywab-2-Gqmdrifff Beta Globulins Gamma Globulins PEP Interpretation Serum Immunofix Reflex IgG IgA IgM Myeloperoxidase Ab 0 Serine Protease 3 Ab 1 Complement C3 Complement C4 Free [place] LC, Quant Free Lambda LC, Quant Free [place]/Lambda Ratio Chlamy pneumoniae PCR Adenovirus (PCR) B. pertussis DNA (PCR) B.parapertussis DNA PCR Coronavirus OC43 (PCR) Coronavirus HKU1 (PCR) Coronavirus 229E (PCR) Coronavirus NL63 (PCR) Human Metapneumovir PCR Influenza A (H1) PCR Influ A (H1N1/09) PCR Influenza A (H3) PCR Influenza A Untype (PCR) Influenza Type B (PCR) M.pneumoniae DNA (PCR) Parainfluenza 1 (PCR) Parainfluenza 2 (PCR) Parainfluenza 3 (PCR) Parainfluenza 4 (PCR) RSV (PCR) Entero/Rhino (PCR) 03/20/18 03/20/18 03/21/18 17:07 21:18 00:58 WBC 6.8 RBC 3.28 L Hgb 10.7 L Hct 32.6 L MCV 99.4 MCH 32.6 MCHC 32.8 RDW 12.9 Plt Count 156 MPV 9.4 Immature Gran % 0.3 Seg Neutrophils % 60.8 Lymphocytes % 23.6 Monocytes % 13.0 Eosinophils % 1.9 Basophils % 0.4 Neutrophils # 4.1 Lymphocytes # 1.6 Monocytes # 0.9 Eosinophils # 0.1 Basophils # 0.0 Sodium Potassium Chloride Carbon Dioxide BUN Creatinine Est GFR ( Amer) Est GFR (Non-Af Amer) BUN/Creatinine Ratio Glucose POC Glucose 176 H 165 H Calculated Osmolality Calcium Phosphorus Prot Electrophor EER Total Protein (PEP) Albumin Albumin (PEP) Zkrrm-2-Tfjyfffwa Btvpq-9-Lcpyylftp Beta Globulins Gamma Globulins PEP Interpretation Serum Immunofix Reflex IgG IgA IgM Myeloperoxidase Ab Serine Protease 3 Ab Complement C3 Complement C4 Free [place] LC, Quant Free Lambda LC, Quant Free [place]/Lambda Ratio Chlamy pneumoniae PCR Adenovirus (PCR) B. pertussis DNA (PCR) B.parapertussis DNA PCR Coronavirus OC43 (PCR) Coronavirus HKU1 (PCR) Coronavirus 229E (PCR) Coronavirus NL63 (PCR) Human Metapneumovir PCR Influenza A (H1) PCR Influ A (H1N1/09) PCR Influenza A (H3) PCR Influenza A Untype (PCR) Influenza Type B (PCR) M.pneumoniae DNA (PCR) Parainfluenza 1 (PCR) Parainfluenza 2 (PCR) Parainfluenza 3 (PCR) Parainfluenza 4 (PCR) RSV (PCR) Entero/Rhino (PCR) 03/21/18 03/21/18 03/21/18 05:25 07:15 12:22 WBC RBC Hgb Hct MCV MCH MCHC RDW Plt Count MPV Immature Gran % Seg Neutrophils % Lymphocytes % Monocytes % Eosinophils % Basophils % Neutrophils # Lymphocytes # Monocytes # Eosinophils # Basophils # Sodium 138 Potassium 4.6 Chloride 107 Carbon Dioxide 22 L BUN 25 H Creatinine 3.57 H Est GFR ( Amer) 22 L Est GFR (Non-Af Amer) 18 L BUN/Creatinine Ratio 7 Glucose 106 H POC Glucose 123 H Calculated Osmolality 291 Calcium 8.9 Phosphorus 4.1 Prot Electrophor EER Total Protein (PEP) Albumin 3.0 L Albumin (PEP) Nvzru-5-Alihnidec Rvedy-7-Wjpwyujqi Beta Globulins Gamma Globulins PEP Interpretation Serum Immunofix Reflex IgG IgA IgM Myeloperoxidase Ab Serine Protease 3 Ab Complement C3 Complement C4 Free [place] LC, Quant Free Lambda LC, Quant Free [place]/Lambda Ratio Chlamy pneumoniae PCR Not Detected Adenovirus (PCR) Not Detected B. pertussis DNA (PCR) Not Detected B.parapertussis DNA PCR Not Detected Coronavirus OC43 (PCR) Not Detected Coronavirus HKU1 (PCR) Not Detected Coronavirus 229E (PCR) Not Detected Coronavirus NL63 (PCR) Not Detected Human Metapneumovir PCR Not Detected Influenza A (H1) PCR Not Detected Influ A (H1N1/09) PCR Not Detected Influenza A (H3) PCR Not Detected Influenza A Untype (PCR) Not Detected Influenza Type B (PCR) Not Detected M.pneumoniae DNA (PCR) Not Detected Parainfluenza 1 (PCR) Not Detected Parainfluenza 2 (PCR) Not Detected Parainfluenza 3 (PCR) Not Detected Parainfluenza 4 (PCR) Not Detected RSV (PCR) Not Detected Entero/Rhino (PCR) Not Detected Cultures: Cultures 03/15/18 15:43 Wound Culture - Preliminary Left Foot Pseudomonas fluorescens Enterococcus avium 03/15/18 15:30 Wound Culture - Preliminary Right Foot Enterococcus avium 03/15/18 15:43 Surgical Biopsy Culture - Final Right Foot 03/15/18 15:43 Surgical Biopsy Culture - Preliminary Left Foot Gram Positive Rods 03/13/18 12:35 Blood Culture - Final Peripheral Venipuncture No growth. Final report. 03/13/18 13:00 Blood Culture - Final Peripheral Venipuncture No growth. Final report. Serology 03/21/18 03/17/18 Range/Units 12:22 18:00 Ur Eosinophil Smear 0 (None Seen) % Chlamy pneumoniae PCR Not Detected (Not Detect) Adenovirus (PCR) Not Detected (Not Detect) B. pertussis DNA (PCR) Not Detected (Not Detect) B.parapertussis DNA PCR Not Detected (Not Detect) Coronavirus OC43 (PCR) Not Detected (Not Detect) Coronavirus HKU1 (PCR) Not Detected (Not Detect) Coronavirus 229E (PCR) Not Detected (Not Detect) Coronavirus NL63 (PCR) Not Detected (Not Detect) Human Metapneumovir PCR Not Detected (Not Detect) Influenza A (H1) PCR Not Detected (Not Detect) Influ A (H1N1/09) PCR Not Detected (Not Detect) Influenza A (H3) PCR Not Detected (Not Detect) Influenza A Untype (PCR) Not Detected (Not Detect) Influenza Type B (PCR) Not Detected (Not Detect) M.pneumoniae DNA (PCR) Not Detected (Not Detect) Parainfluenza 1 (PCR) Not Detected (Not Detect) Parainfluenza 2 (PCR) Not Detected (Not Detect) Parainfluenza 3 (PCR) Not Detected (Not Detect) Parainfluenza 4 (PCR) Not Detected (Not Detect) RSV (PCR) Not Detected (Not Detect) Entero/Rhino (PCR) Not Detected (Not Detect) - Impressions Impressions Chest X-Ray 03/21/18 23:57 IMPRESSION: Bilateral patchy interstitial and alveolar opacities which could represent mild edema or multifocal pneumonia. D/ : / 03/21/2018 07:26:43 Alexandru Kiser MD / popeye Interpreting Provider: Alexandru Kiser MD Exam - Constitutional Vitals: Temp Pulse Resp BP Pulse Ox 98.2 F 72 17 125/73 92 03/21/18 14:04 03/21/18 14:04 03/21/18 14:04 03/21/18 14:04 03/21/18 14:04 General appearance: no acute distress, obese - Head Head exam: Present: normal inspection, normocephalic - Respiratory Respiratory exam: Present: CTAB. Absent: rales, respiratory distress, rhonchi - Cardiovascular Cardiovascular exam: Present: RRR - GI/Abdominal GI/Abdominal exam: Present: normal bowel sounds, soft. Absent: tenderness - Extremities Exam Extremities exam: Present: pedal edema Additional comments: Bilateral lower extremities with soft cast and sherine bandaging to protect heel ulcers bilaterally. Right leg with +2 pitting edema and chronic venous stasis appearance. Left leg has boot up to knee. No signs of crepitus or foul smelling discharge - Neurological Exam Neurological exam: Present: alert, oriented X3 - Psychiatric Psychiatric exam: Present: normal affect, normal mood - Skin Skin exam: Present: normal color Consult Discharge Plan - Plan Instructions: Acute Kidney Injury (DC), Diabetes Mellitus Type 2 in Adults (DC) Additional Instructions: Follow with Dr. Taylor in wound center on Sunday. Please call and make appointment prior to D/C. Follow up with ID and Nephrology Referrals: Froylan Guido MD [Primary Care Provider] - Sanford Taylor DPM [Partnered Physician] - Prescriptions: OxyCODONE/APAP 5/325 [Percocet 5/325 MG] 1 each PO Q6HR PRN 5 Days #15 tablet PRN Reason: Pain RX: GlipiZIDE XL (24 HR) [Glucotrol XL] 2.5 mg PO DAILY #30 tab.er.24 Ckymtecotrqo-Xogi-Cidyictm,Iso [Zosyn 4.5 gm/100 ml Galaxy Bag] 4.5 gm IV Q8H #42 [email or web address] - Attending Attestation I examined this patient and my medical decision-making was reviewed with the Resident Physician. I agree with the documented findings, disposition and treatment plan as described except to the extent set forth below. I spoke with microbiology myself and the cultures susceptibility for the enterococcus not back to see if we can stop the daptomycin. Patient very eager to go home I explained to him that we need the culture susceptibility to know what antibiotics send him home on. He stated that he is willing to wait another 24 hours. Other than that patient clinically is doing okay. Continue current antibiotics with daptomycin and Zosyn. Monitor labs closely. Continue to watch kidney function. Most recent creatinine clearance around 30. Last pharmacy to dose adjust antibiotics.
[2018-03-21 15:29] LABS: Uric Acid 7.2 mg/dL (2.3-7.6)
[2018-03-21 15:35] LABS: Bilirubin,Urine Negative (Negative); Blood,Urine Negative (Negative); Clarity,Urine Clear (Clear); Color,Urine Yellow (Yellow); Glucose,Urine (UA) Normal (Normal); Ketones,Urine Negative (Negative); Leukocyte Esterase,Urine Trace (Negative); Nitrite,Urine Negative (Negative); Protein,Urine Negative (Neg-Trace); Specific Gravity,Urine < 1.005 (1.010-1.025); Urobilinogen,Urine Normal (Normal)
[2018-03-21 15:37] LABS: INR 1.3; Prothrombin Time 14.5 Seconds (9.4-12.1)
[2018-03-21 15:38] LABS: Bacteria,Urine None Seen per hpf (None-Few); Hyaline Casts,Urine None Seen per lpf (None-Few); RBC,Urine 0-3 per hpf (0-3); Squamous Epithelial Cell,Urine Moderate per lpf (None-Few)
[2018-03-21 15:39] LABS: Activated Partial Thrombo Time 59.7 Seconds (26.0-36.0)
[2018-03-21 15:57] LABS: Protein/Creatinine Ratio,Urine 0.47 mg/mg (0.00-0.20)
[2018-03-21] MEDS: traZODone 50 MG TABLET PO SCH (21:46)
[2018-03-22 03:53] LABS: Basophils % 0.4 %; Eosinophils # 0.1 K/mcL (0.0-0.6); Eosinophils % 2.1 %; Hematocrit 30.8 % (37.5-50.1); Hemoglobin 9.9 g/dL (12.9-16.9); Immature Granulocytes % 0.3 % (0-4); Lymphocytes # 1.5 K/mcL (0.6-4.6); Lymphocytes % 22.3 %; Mean Corpuscular HGB Conc 32.1 g/dL (31.6-35.5); Mean Corpuscular Hemoglobin 32.1 pg (28.0-33.3); Mean Platelet Volume 9.1 fL (9.4-12.4); Monocytes % 14.7 %; Neutrophils # 4.1 K/mcL (1.6-8.9); Platelet Count 157 K/mcL (140-400); Red Blood Count 3.08 M/mcL (4.19-5.50); Red Cell Distribution Width 12.8 % (11.5-14.5); Segmented Neutrophils % 60.2 %
[2018-03-22 04:12] LABS: Calcium 8.8 mg/dL (8.6-10.3); Potassium 4.5 mEq/L (3.5-5.1)
[2018-03-22] MEDS: Ipratropium/Albuterol Neb 3 ML IH SCH ×2 (05:16→10:25)
[2018-03-22] MEDS: Piperacillin/Tazobactam 3.375 GM in 0.9 % Sodium Chloride Mini Bag 100 ML IVPB SCH (06:17)
[2018-03-22] MEDS: *HR* Heparin 5,000 UNIT/ML VIAL SQ SCH (06:23)
[2018-03-22] MEDS: Insulin LISPRO 300 UNITS/3 ML VIAL SQ SCH ×2 (07:29→11:47)
[2018-03-22] MEDS: *HR* OxyCODONE/APAP 5/325 TABLET PO PRN ×2 (07:57→12:30)
[2018-03-22] MEDS: Multivit/Ca/Min/Fe/FA 1 TAB TABLET PO SCH (07:58)
[2018-03-22] MEDS: Pregabalin 75 MG CAPSULE PO SCH (07:58)
[2018-03-22] MEDS: Fluticasone Propionate Nasal 50 MCG/SPRAY BOTTLE NS SCH (07:58)
[2018-03-22] MEDS: Metoprolol XL (24 HR) Succ 50 MG TAB.ER.24H PO SCH (07:58)
[2018-03-22] MEDS: risperiDONE 1 MG TABLET PO SCH (07:58)
--- NOTE | 2018-03-22 08:37 | Nephrology Progress Note ---
Date of Encounter: 03/22/18 Time of Encounter: 10:00 - Assessment and Plan (1) Acute renal failure Status: Acute Stable BETH with eGFR in the upper teens that most likely ATN but not severe enough for dialysis. He has decline renal biopsy at this time, though if he continues to fail to recover while being monitored as an outpt, then renal biopsy should be re- considered. Given his stability, it is reasonable to arrange discharge from a Nephrology perspective and to have weekly BMPs checked and cc'd to me and I'd be happy to see him in clinic. I do not recommend that he stay just to daily monitor/watch SCr that has now demonstrated to be stable. I describe the pros/cons and Red Flags to monitor for as an outpt. I counseled him for >50% of the approx 30-35 min encounter to avoid all NSAIDs (he was taking not just IBU, but also Mobic and a powered NSAID called BC Powder), adequate water, to cut back on alcohol and to be sure to have weekly labs checked to monitor his ATN. Discussed in detail with the pt and the floor RN. I also had my team work in my clinic to arrange a hospital follow up appt in about 2-4 weeks. Thank you. Qualifiers: Acute renal failure type: with other specified pathological lesion Qualified Code(s): N17.8 - Other acute kidney failure (2) Alcohol abuse Status: Chronic per primary team, and I also helped associate professor of counseling him to cut back (see above) (3) Cellulitis of left foot due to methicillin-resistant Staphylococcus aureus Status: Acute per podiatry team. The Vanco likely contributed to the BETH. (4) Morbid obesity Status: Chronic I counseled him on lifestyle modifications (see above) (5) Diabetes mellitus Status: Chronic He should not be treated with metformin until his eGFR improves to >30 (or safer when >45, if he were to ever see this much renal recovery). Qualifiers: Diabetes mellitus type: type 2 Diabetes mellitus ep tech insulin use: without ep tech use Diabetes mellitus complication status: with skin complications Diabetes mellitus complication detail: with foot ulcer Qualified Code(s): E11.621 - Type 2 diabetes mellitus with foot ulcer; L97.509 - Non-pressure chronic ulcer of other part of unspecified foot with unspecified severity Subjective Principal diagnosis: BETH, cellulitis of left foot Interval history: The patient was seen and examined in his 3A room. He was wearing history close and sitting upright on the side of the bed. He did not affirm nausea, vomiting, diminished appetite, or other uremic symptoms. He said that he could very easily undergo frequent blood work to monitor his kidneys and promised to follow up in the clinic; and he voiced that he strongly wants to discharge today and did not want to leave AMA. He also reported recently consuming more NSAIDs than he had told me earlier in this admission. In addition to the Mobic and ibuprofen, he was taking a powdered NSAID called BC powders. I suspect the NSAIDs strongly contributed to this BETH. Objective - Vital Signs Vital signs: Vital Signs Temp Pulse Resp BP Pulse Ox 03/22/18 07:01 97.6 F 71 15 137/75 94 03/22/18 03:56 97.4 F L 73 16 132/69 95 03/21/18 22:49 12 96 03/21/18 19:03 98.5 F 78 15 131/71 95 03/21/18 15:39 16 94 03/21/18 14:04 98.2 F 72 17 125/73 92 03/21/18 10:39 14 94 03/21/18 10:07 97.7 F 75 16 132/73 95 Intake and Output 03/21/18 03/22/18 03/22/18 23:59 07:59 15:59 Intake Total 100 / 100 0 / 0 Output Total 0 / 0 500 / 500 Balance 100 / 100 -500 / -500 Intake: IV Fluids 100 / 100 Zosyn 3.375 GM In 0.9 % Sodium 100 / 100 Chloride (Mini-Bag +) 100 ML @ 25 mls/hr IVPB Q12H [facility] Rx#: [id number] Oral 0 / 0 0 / 0 Output: Urine 0 / 0 500 / 500 Other: Meal Dinner Percent of Meal Consumed 10% # Voids 1 Weight 143.5 kg Blood Glucose* 148 118 Patient Weight 03/22/18 23:59 Weight 143.5 kg - General Appearance General appearance: Present: well-developed, well-nourished, obese EENT: Present: ATNC, PERRL, mucous membranes moist Neck: Present: supple Respiratory: Present: clear Cardiology: Present: no edema, regular rate, regular rhythm, normal S1, normal S2 Gastrointestinal: Present: normoactive bowel sounds, no tenderness, no guarding, obese Integumentary: Present: no rash, warm and dry Neurologic: Present: no focal deficit, no asterixis, alert and oriented x3 Additional Comments: left foot in a medical boot. Psychiatric: Present: mood/affect appropriate, cooperative - Lab 03/22/18 03:30 03/22/18 03:30 Most recent lab results Calcium 8.8 mg/dL (8.6-10.3) 03/22/18 03:30 Phosphorus 4.1 mg/dL (2.7-4.5) 03/21/18 05:25 Magnesium 1.9 mg/dL (1.6-2.6) 03/18/18 05:35 Urine Creatinine 43 mg/dL 03/21/18 15:09 Urine Total Protein 20 mg/dL (1-14) H 03/21/18 15:09 Consult Discharge Plan - Plan Instructions: Acute Kidney Injury (DC), Diabetes Mellitus Type 2 in Adults (DC) Additional Instructions: Follow with Dr. Taylor in wound center on Sunday. Please call and make appointment prior to D/C. Follow up with ID and Nephrology Referrals: Froylan Guido MD [Primary Care Provider] - (Web-requested, will call patient to schedule. ) Sanford Taylor DPM [Partnered Physician] - (Web-requested, will call patient to schedule ) Umer Sanz DO [Partnered Physician] - (Web-requested, will call patient to schedule. ) Prescriptions: OxyCODONE/APAP 5/325 [Percocet 5/325 MG] 1 each PO Q6HR PRN 5 Days #15 tablet PRN Reason: Pain GlipiZIDE XL (24 HR) [Glucotrol XL] 2.5 mg PO DAILY #30 tab.er.24 Igyjrljaiqxh-Hdhx-Ouzlsbqz,Iso [Zosyn 4.5 gm/100 ml Galaxy Bag] 4.5 gm IV Q8H #42 [email or web address]
--- NOTE | 2018-03-22 09:33 | Infectious Disease Progress No ---
Date of Encounter: 03/22/18 Time of Encounter: 09:30 - Assessment and Plan (1) Heel ulcer due to DM Status: Acute - Patient has meant 0/4 sirs criteria on admission -WBC is 6.7 with normal differentiation - Postoperative day #7 from bilateral heel surgical graft - Clinically patient is complaining of no pain, discharge, erythema - ESR 80, CRP 54 on 03/13 - Creatinine kinase 17 on 03/18 - Blood cultures from 03/13 no growth 2 final - Patient does have a past history of wound cultures of left first toe including positive growth for Pseudomonas, MRSA, MSSA, group B strep - X-ray of bilateral foot on 03/13 shows mild soft tissue swelling and likely cellulitis with no obvious osteomyelitis findings. - Was initially started on vancomycin and Zosyn in the emergency department. Vancomycin was stopped on 03/15 due to acute kidney injury after 3 day course. Zyvox was stopped due to interactions with trazodone as well as potential duration of treament possibly 6 weeks. Left foot culture wounds have come back positive for enterococcus avium and psuedomonas fluorescens. The enterococcus avium is susceptible to ampicillin, ciprofloxacin, linezolid and vancomycin. The psuedomonas fluorescens is susceptible to cefepime, ceftazidime, ciprofloxacin, gentamicin, and zoysn amongst others. Right foot culture wounds have come back positive for Enterococcus avium, susceptible to ampicillin, ciprofloxacin, linezolid and vancomycin. Surgical Bone Biopsy taken on 03/15 has come back for gram positive rods on left heel, awaiting susceptibility report. Right heel has come back negative for growth, final. Surgical pathology report has come back with the following results: Right foot bone biopsy shows benign bone, cartilage, adipose tissue and negative for osteomyelitis. Left bone biospy: portion of benign bone and negative for osteomyelitis Plan: -Upon discharge patient is to remain on zoysn 4.5g q8 for 2 weeks for coverage of the foot wounds bilaterally -Patient is to see Dr. Becerra in office for follow up on antibiotics on 04/02/18 at 10:30 am Qualifiers: Diabetes mellitus type: type 2 Laterality: left Non-pressure ulcer stage: unspecified non-pressure ulcer stage Qualified Code(s): E11.621 - Type 2 diabetes mellitus with foot ulcer; L97.429 - Non-pressure chronic ulcer of left heel and midfoot with unspecified severity (2) Acute renal failure Status: Acute BUN/ Cr is 23/3.41 today respectively Baseline creatinine is around 0.7-1.0 Could possibly be secondary to vancomycin treatment. Continue to monitor renal function, renally dose antibiotics. Managment per primary team, nephorology is following Qualifiers: Acute renal failure type: with other specified pathological lesion Qualified Code(s): N17.8 - Other acute kidney failure (3) Diabetes mellitus Status: Chronic well-controlled diabetes with most recent A1C of 5.4% on October 2017. blood sugars are under control since admission further management per primary team Qualifiers: Diabetes mellitus type: type 2 Diabetes mellitus keno terminal operator insulin use: without fci use Diabetes mellitus complication status: with skin complications Diabetes mellitus complication detail: with foot ulcer Qualified Code(s): E11.621 - Type 2 diabetes mellitus with foot ulcer; L97.509 - Non-pressure chronic ulcer of other part of unspecified foot with unspecified severity (4) Alcohol abuse Status: Chronic Patient is on CIWA protocol. Discussed with nursing staff. - Subjective Interval history: Patient is seen. Appears comfortable sitting up in bedside chair. Upon questioning denies fever, chills, night sweats and myalgia's. Denies SOB and chest pain. Admits to cough with brown sputum discharge. Admits to a small amount of pain upon coughing. Denies hemoptysis. Denies nausea, vomiting, diarrhea or abdominal pain. Admits to left sided flank pain which is expected due to left rib fracture. Denies other joint pain. Denies pain in left and right legs, most likely due to pain medications. Denies Radiation of pain. Reports no other skin lesions or oral thrush. -Urinary antigen test for strep pneumo and legionella has come back negative for both organisms. -sputum culture from yesterday is still pending. Infect Dis PN-Objective Data - Labs CBC & Chem 7: 03/22/18 03:30 03/22/18 03:30 Labs: Laboratory Results - last 24 hr 03/17/18 03/17/18 03/21/18 13:52 13:52 12:22 WBC RBC Hgb Hct MCV MCH MCHC RDW Plt Count MPV Immature Gran % Seg Neutrophils % Lymphocytes % Monocytes % Eosinophils % Basophils % Neutrophils # Lymphocytes # Monocytes # Eosinophils # Basophils # PT INR APTT Sodium Potassium Chloride Carbon Dioxide BUN Creatinine Est GFR ( Amer) Est GFR (Non-Af Amer) BUN/Creatinine Ratio Glucose POC Glucose Calculated Osmolality Uric Acid Calcium Creatine Kinase Prot Electrophor EER SEE NOTE Total Protein (PEP) 6.70 Albumin (PEP) 2.98 L Sfunr-1-Ylawsgwbn 0.44 Inrig-9-Esgzqxpjp 0.73 Beta Globulins 1.01 Gamma Globulins 1.54 H PEP Interpretation SEE NOTE Serum Immunofix Reflex NOT DONE Urine Color Urine Clarity Urine pH Ur Specific [place] Urine Protein Urine Glucose (UA) Urine Ketones Urine Blood Urine Nitrite Urine Bilirubin Urine Urobilinogen Ur Leukocyte Esterase Urine Microscopic RBC Urine Microscopic WBC Ur Eosinophil Smear Ur Squamous Epith Cells Urine Bacteria Hyaline Casts Urine Creatinine Protein/Creatinin Ratio Urine Total Protein IgG TNP IgA TNP IgM TNP Rheumatoid Factor BARBARA Titer 1:160 H Chlamy pneumoniae PCR Not Detected Adenovirus (PCR) Not Detected B. pertussis DNA (PCR) Not Detected B.parapertussis DNA PCR Not Detected Coronavirus OC43 (PCR) Not Detected Coronavirus HKU1 (PCR) Not Detected Coronavirus 229E (PCR) Not Detected Coronavirus NL63 (PCR) Not Detected Human Metapneumovir PCR Not Detected Influenza A (H1) PCR Not Detected Influ A (H1N1/09) PCR Not Detected Influenza A (H3) PCR Not Detected Influenza A Untype (PCR) Not Detected Influenza Type B (PCR) Not Detected M.pneumoniae DNA (PCR) Not Detected Parainfluenza 1 (PCR) Not Detected Parainfluenza 2 (PCR) Not Detected Parainfluenza 3 (PCR) Not Detected Parainfluenza 4 (PCR) Not Detected RSV (PCR) Not Detected Entero/Rhino (PCR) Not Detected 03/21/18 03/21/18 03/21/18 14:58 14:58 14:58 WBC RBC Hgb Hct MCV MCH MCHC RDW Plt Count MPV Immature Gran % Seg Neutrophils % Lymphocytes % Monocytes % Eosinophils % Basophils % Neutrophils # Lymphocytes # Monocytes # Eosinophils # Basophils # PT 14.5 H INR 1.3 APTT 59.7 H Sodium Potassium Chloride Carbon Dioxide BUN Creatinine Est GFR ( Amer) Est GFR (Non-Af Amer) BUN/Creatinine Ratio Glucose POC Glucose Calculated Osmolality Uric Acid 7.2 Calcium Creatine Kinase 19 L Prot Electrophor EER Total Protein (PEP) Albumin (PEP) Bplnc-9-Yhqsmadnl Axpdy-3-Ykdbgkaep Beta Globulins Gamma Globulins PEP Interpretation Serum Immunofix Reflex Urine Color Urine Clarity Urine pH Ur Specific [place] Urine Protein Urine Glucose (UA) Urine Ketones Urine Blood Urine Nitrite Urine Bilirubin Urine Urobilinogen Ur Leukocyte Esterase Urine Microscopic RBC Urine Microscopic WBC Ur Eosinophil Smear Ur Squamous Epith Cells Urine Bacteria Hyaline Casts Urine Creatinine Protein/Creatinin Ratio Urine Total Protein IgG IgA IgM Rheumatoid Factor < 10 BARBARA Titer Chlamy pneumoniae PCR Adenovirus (PCR) B. pertussis DNA (PCR) B.parapertussis DNA PCR Coronavirus OC43 (PCR) Coronavirus HKU1 (PCR) Coronavirus 229E (PCR) Coronavirus NL63 (PCR) Human Metapneumovir PCR Influenza A (H1) PCR Influ A (H1N1/09) PCR Influenza A (H3) PCR Influenza A Untype (PCR) Influenza Type B (PCR) M.pneumoniae DNA (PCR) Parainfluenza 1 (PCR) Parainfluenza 2 (PCR) Parainfluenza 3 (PCR) Parainfluenza 4 (PCR) RSV (PCR) Entero/Rhino (PCR) 03/21/18 03/21/18 03/21/18 15:09 15:09 15:09 WBC RBC Hgb Hct MCV MCH MCHC RDW Plt Count MPV Immature Gran % Seg Neutrophils % Lymphocytes % Monocytes % Eosinophils % Basophils % Neutrophils # Lymphocytes # Monocytes # Eosinophils # Basophils # PT INR APTT Sodium Potassium Chloride Carbon Dioxide BUN Creatinine Est GFR ( Amer) Est GFR (Non-Af Amer) BUN/Creatinine Ratio Glucose POC Glucose Calculated Osmolality Uric Acid Calcium Creatine Kinase Prot Electrophor EER Total Protein (PEP) Albumin (PEP) Yekio-5-Bgnehzsls Stgso-1-Mickaetzq Beta Globulins Gamma Globulins PEP Interpretation Serum Immunofix Reflex Urine Color Yellow Urine Clarity Clear Urine pH 6.0 Ur Specific [place] < 1.005 L Urine Protein Negative Urine Glucose (UA) Normal Urine Ketones Negative Urine Blood Negative Urine Nitrite Negative Urine Bilirubin Negative Urine Urobilinogen Normal Ur Leukocyte Esterase Trace H Urine Microscopic RBC 0-3 Urine Microscopic WBC 3-5 H Ur Eosinophil Smear 0 Ur Squamous Epith Cells Moderate H Urine Bacteria None Seen Hyaline Casts None Seen Urine Creatinine 43 Protein/Creatinin Ratio 0.47 H Urine Total Protein 20 H IgG IgA IgM Rheumatoid Factor BARBARA Titer Chlamy pneumoniae PCR Adenovirus (PCR) B. pertussis DNA (PCR) B.parapertussis DNA PCR Coronavirus OC43 (PCR) Coronavirus HKU1 (PCR) Coronavirus 229E (PCR) Coronavirus NL63 (PCR) Human Metapneumovir PCR Influenza A (H1) PCR Influ A (H1N1) PCR Influenza A (H3) PCR Influenza A Untype (PCR) Influenza Type B (PCR) M.pneumoniae DNA (PCR) Parainfluenza 1 (PCR) Parainfluenza 2 (PCR) Parainfluenza 3 (PCR) Parainfluenza 4 (PCR) RSV (PCR) Entero/Rhino (PCR) 03/21/18 03/22/18 03/22/18 16:46 03:30 03:30 WBC 6.7 RBC 3.08 L Hgb 9.9 L Hct 30.8 L MCV 100.0 MCH 32.1 MCHC 32.1 RDW 12.8 Plt Count 157 MPV 9.1 L Immature Gran % 0.3 Seg Neutrophils % 60.2 Lymphocytes % 22.3 Monocytes % 14.7 Eosinophils % 2.1 Basophils % 0.4 Neutrophils # 4.1 Lymphocytes # 1.5 Monocytes # 1.0 Eosinophils # 0.1 Basophils # 0.0 PT INR APTT Sodium 138 Potassium 4.5 Chloride 106 Carbon Dioxide 25 BUN 23 H Creatinine 3.41 H Est GFR ( Amer) 23 L Est GFR (Non-Af Amer) 19 L BUN/Creatinine Ratio 7 Glucose 102 POC Glucose 120 H Calculated Osmolality 290 Uric Acid Calcium 8.8 Creatine Kinase Prot Electrophor EER Total Protein (PEP) Albumin (PEP) Ykmyu-6-Dxuphekjf Tefgz-4-Sdtrixxmj Beta Globulins Gamma Globulins PEP Interpretation Serum Immunofix Reflex Urine Color Urine Clarity Urine pH Ur Specific [place] Urine Protein Urine Glucose (UA) Urine Ketones Urine Blood Urine Nitrite Urine Bilirubin Urine Urobilinogen Ur Leukocyte Esterase Urine Microscopic RBC Urine Microscopic WBC Ur Eosinophil Smear Ur Squamous Epith Cells Urine Bacteria Hyaline Casts Urine Creatinine Protein/Creatinin Ratio Urine Total Protein IgG IgA IgM Rheumatoid Factor BARBARA Titer Chlamy pneumoniae PCR Adenovirus (PCR) B. pertussis DNA (PCR) B.parapertussis DNA PCR Coronavirus OC43 (PCR) Coronavirus HKU1 (PCR) Coronavirus 229E (PCR) Coronavirus NL63 (PCR) Human Metapneumovir PCR Influenza A (H1) PCR Influ A (H1N1) PCR Influenza A (H3) PCR Influenza A Untype (PCR) Influenza Type B (PCR) M.pneumoniae DNA (PCR) Parainfluenza 1 (PCR) Parainfluenza 2 (PCR) Parainfluenza 3 (PCR) Parainfluenza 4 (PCR) RSV (PCR) Entero/Rhino (PCR) Cultures: Cultures 03/15/18 15:30 Wound Culture - Final Right Foot Enterococcus avium 03/15/18 15:43 Wound Culture - Final Left Foot Pseudomonas fluorescens Enterococcus avium 03/22/18 01:12 Sputum Culture - Preliminary Sputum 03/21/18 15:09 Legionella Antigen - Final Urine,Clean Catch Streptococcus pneumoniae Antigen (M - Final 03/15/18 15:43 Surgical Biopsy Culture - Final Right Foot 03/15/18 15:43 Surgical Biopsy Culture - Preliminary Left Foot Gram Positive Rods 03/13/18 12:35 Blood Culture - Final Peripheral Venipuncture No growth. Final report. 03/13/18 13:00 Blood Culture - Final Peripheral Venipuncture No growth. Final report. Serology 03/21/18 03/21/18 03/21/18 Range/Units 15:09 15:09 15:09 Urine Color Yellow (Yellow) Urine Clarity Clear (Clear) Urine pH 6.0 (5.0-8.0) pH Units Ur Specific [place] < 1.005 L (1.010-1.025) Urine Protein Negative (Neg-Trace) mg/dL Urine Glucose (UA) Normal (Normal) mg/dL Urine Ketones Negative (Negative) mg/dL Urine Blood Negative (Negative) Urine Nitrite Negative (Negative) Urine Bilirubin Negative (Negative) Urine Urobilinogen Normal (Normal) mg/dL Ur Leukocyte Esterase Trace H (Negative) Urine Microscopic RBC 0-3 (0-3) per hpf Urine Microscopic WBC 3-5 H (0-3) per hpf Ur Eosinophil Smear 0 (None Seen) % Ur Squamous Epith Cells Moderate H (None-Few) per lpf Urine Bacteria None Seen (None-Few) per hpf Hyaline Casts None Seen (None-Few) per lpf Urine Creatinine 43 mg/dL Protein/Creatinin Ratio 0.47 H (0.00-0.20) mg/mg Urine Total Protein 20 H (1-14) mg/dL Chlamy pneumoniae PCR (Not Detect) Adenovirus (PCR) (Not Detect) B. pertussis DNA (PCR) (Not Detect) B.parapertussis DNA PCR (Not Detect) Coronavirus OC43 (PCR) (Not Detect) Coronavirus HKU1 (PCR) (Not Detect) Coronavirus 229E (PCR) (Not Detect) Coronavirus NL63 (PCR) (Not Detect) Human Metapneumovir PCR (Not Detect) Influenza A (H1) PCR (Not Detect) Influ A (H1N1/09) PCR (Not Detect) Influenza A (H3) PCR (Not Detect) Influenza A Untype (PCR) (Not Detect) Influenza Type B (PCR) (Not Detect) M.pneumoniae DNA (PCR) (Not Detect) Parainfluenza 1 (PCR) (Not Detect) Parainfluenza 2 (PCR) (Not Detect) Parainfluenza 3 (PCR) (Not Detect) Parainfluenza 4 (PCR) (Not Detect) RSV (PCR) (Not Detect) Entero/Rhino (PCR) (Not Detect) 03/21/18 03/17/18 Range/Units 12:22 18:00 Urine Color (Yellow) Urine Clarity (Clear) Urine pH (5.0-8.0) pH Units Ur Specific [place] (1.010-1.025) Urine Protein (Neg-Trace) mg/dL Urine Glucose (UA) (Normal) mg/dL Urine Ketones (Negative) mg/dL Urine Blood (Negative) Urine Nitrite (Negative) Urine Bilirubin (Negative) Urine Urobilinogen (Normal) mg/dL Ur Leukocyte Esterase (Negative) Urine Microscopic RBC (0-3) per hpf Urine Microscopic WBC (0-3) per hpf Ur Eosinophil Smear 0 (None Seen) % Ur Squamous Epith Cells (None-Few) per lpf Urine Bacteria (None-Few) per hpf Hyaline Casts (None-Few) per lpf Urine Creatinine mg/dL Protein/Creatinin Ratio (0.00-0.20) mg/mg Urine Total Protein (1-14) mg/dL Chlamy pneumoniae PCR Not Detected (Not Detect) Adenovirus (PCR) Not Detected (Not Detect) B. pertussis DNA (PCR) Not Detected (Not Detect) B.parapertussis DNA PCR Not Detected (Not Detect) Coronavirus OC43 (PCR) Not Detected (Not Detect) Coronavirus HKU1 (PCR) Not Detected (Not Detect) Coronavirus 229E (PCR) Not Detected (Not Detect) Coronavirus NL63 (PCR) Not Detected (Not Detect) Human Metapneumovir PCR Not Detected (Not Detect) Influenza A (H1) PCR Not Detected (Not Detect) Influ A (H1N1/09) PCR Not Detected (Not Detect) Influenza A (H3) PCR Not Detected (Not Detect) Influenza A Untype (PCR) Not Detected (Not Detect) Influenza Type B (PCR) Not Detected (Not Detect) M.pneumoniae DNA (PCR) Not Detected (Not Detect) Parainfluenza 1 (PCR) Not Detected (Not Detect) Parainfluenza 2 (PCR) Not Detected (Not Detect) Parainfluenza 3 (PCR) Not Detected (Not Detect) Parainfluenza 4 (PCR) Not Detected (Not Detect) RSV (PCR) Not Detected (Not Detect) Entero/Rhino (PCR) Not Detected (Not Detect) - Impressions Impressions Chest X-Ray 03/21/18 23:57 IMPRESSION: Bilateral patchy interstitial and alveolar opacities which could represent mild edema or multifocal pneumonia. D/ : / 03/21/2018 07:26:43 Alexandru Kiser MD / popeye Interpreting Provider: Alexandru Kiser MD Exam - Constitutional Vitals: Temp Pulse Resp BP Pulse Ox 97.6 F 71 15 137/75 94 03/22/18 07:01 03/22/18 07:01 03/22/18 07:01 03/22/18 07:01 03/22/18 07:01 General appearance: no acute distress, obese - Head Head exam: Present: normal inspection, normocephalic - Respiratory Respiratory exam: Present: CTAB, wheezes - Cardiovascular Cardiovascular exam: Present: RRR - GI/Abdominal GI/Abdominal exam: Present: normal bowel sounds, soft. Absent: tenderness - Extremities Exam Extremities exam: Present: pedal edema Additional comments: Bilateral lower extremities with soft cast and sherine bandaging to protect heel ulcers bilaterally. Right leg with +2 pitting edema and chronic venous stasis appearance. Left leg has boot up to knee. No signs of crepitus or foul smelling discharge - Psychiatric Psychiatric exam: Present: normal affect, normal mood - Skin Skin exam: Present: normal color Consult Discharge Plan - Plan Instructions: Acute Kidney Injury (DC), Diabetes Mellitus Type 2 in Adults (DC) Additional Instructions: Follow with Dr. Taylor in wound center on Sunday. Please call and make appointment prior to D/C. Follow up with ID and Nephrology Referrals: Froylan Guido MD [Primary Care Provider] - (Web-requested, will call patient to schedule. ) Sanford Taylor DPM [Partnered Physician] - (Web-requested, will call patient to schedule ) Umer Sanz DO [Partnered Physician] - (Web-requested, will call patient to schedule. ) Prescriptions: OxyCODONE/APAP 5/325 [Percocet 5/325 MG] 1 each PO Q6HR PRN 5 Days #15 tablet PRN Reason: Pain RX: GlipiZIDE XL (24 HR) [Glucotrol XL] 2.5 mg PO DAILY #30 tab.er.24 Rwuylpkxhdqx-Mvzf-Fvqfhaja,Iso [Zosyn 4.5 gm/100 ml Galaxy Bag] 4.5 gm IV Q8H #42 [email or web address] - Attending Attestation I examined this patient and my medical decision-making was reviewed with the Resident Physician. I agree with the documented findings, disposition and treatment plan as described except to the extent set forth below.
[2018-03-22 10:38] VITALS: BP 159/87
[2018-03-22] MEDS: Nicotine 21 MG PATCH.TD24 TD SCH (12:30)
--- NOTE | 2018-03-22 13:18 | Discharge Summary ---
- NOTES TO OUTPATIENT PROVIDER Notes to Outpatient Provider: Patient was admitted for bilateral heel ulcers. Wound culture growing P. fluorescens and Enterococcus avium. Treated with zosyn/daptomycin and will be discharged on zosyn with home health. Bone bx done by podiatry and prelim was growing GPR at the time of discharge. Of note, he also developed non-oliguric BETH, likely due to abx. He was offered kidney bx for definitive dx but declined. He will need close follow up with ID and nephrology. Due to BETH, lisinopril, HCTZ, and metformin were d/nely. Glipizide dosing was adjusted to 2.5mg daily to avoid hypoglycemia. 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 mellitus hydraulic jack adjuster insulin use: without hydraulic jack adjuster use Diabetes mellitus complication status: with skin complications Diabetes mellitus complication detail: with foot ulcer Qualified Code(s): E11.621 - Type 2 diabetes mellitus with foot ulcer; L97.509 - Non-pressure chronic ulcer of other part of unspecified foot with unspecified severity (2) HTN (hypertension) Priority: Secondary Status: Chronic Qualifiers: Hypertension type: essential hypertension Qualified Code(s): I10 - Essential (primary) hypertension (3) COPD (chronic obstructive pulmonary disease) Priority: Secondary Status: Chronic Qualifiers: COPD type: unspecified COPD Qualified Code(s): J44.9 - Chronic obstructive pulmonary disease, unspecified (4) Tobacco abuse Priority: Secondary Status: Chronic (5) Alcohol abuse Priority: Secondary Status: Chronic (6) Heel ulcer Priority: Primary Status: Acute Qualifiers: Laterality: unspecified laterality Non-pressure ulcer stage: limited to breakdown of skin Qualified Code(s): L97.401 - Non-pressure chronic ulcer of unspecified heel and midfoot limited to breakdown of skin (7) Fracture of three ribs of left side Priority: Secondary Status: Acute Qualifiers: Encounter type: subsequent encounter Fracture type: closed Fracture healing: with routine healing Qualified Code(s): S22.42XD - Multiple fractures of ribs, left side, subsequent encounter for fracture with routine healing (8) CHLOE (obstructive sleep apnea) Priority: Secondary Status: Acute (9) Morbid obesity Priority: Secondary Status: Acute (10) Acute renal failure Priority: Secondary Status: Acute Qualifiers: Acute renal failure type: with other specified pathological lesion Qualified Code(s): N17.8 - Other acute kidney failure Hospital course: Mr. Parish is a 47 year old male with his tory of DM was admitted for bilateral heel ulcers. Wound culture growing P. fluorescens and Enterococcus avium. Treated with zosyn/daptomycin and will be discharged on zosyn with home health. Bone bx done by podiatry and prelim was growing GPR at the time of discharge. Of note, he also developed non-oliguric BETH, likely due to abx. He was offered kidney bx for definitive dx but declined. He will need close follow up with ID and nephrology. Due to BETH, lisinopril, HCTZ, and metformin were d/nely. Glipizide dosing was adjusted to 2.5mg daily to avoid hypoglycemia. - Time Spent with Patient Total time spent providing and/or coordinating discharge services: - Discharge Medications Prescriptions: OxyCODONE/APAP 5/325 [Percocet 5/325 MG] 1 each PO Q6HR PRN 2 Days #8 tablet PRN Reason: Pain GlipiZIDE XL (24 HR) [Glucotrol XL] 2.5 mg PO DAILY #30 tab.er.24 Lcaodbjcyntj-Zgui-Djewfdke,Iso [Zosyn 3.375 gm/50 ml Galaxy] 3.375 gm IV Q8H #42 froz.piggy Home Medications: Albuterol Sulfate [Albuterol Inhaler] 2 puff IH Q4HR PRN 04/06/16 [History] Metoprolol Succinate 100 mg PO BID 04/06/16 [History] Multivitamin [Multi-Day Vitamins] 1 tab PO DAILY 04/06/16 [History] [employer]-3/Dha/Epa/Fish Oil [Fish Oil 1,000 mg Softgel] 2 cap PO BID 04/06/16 [History] Omeprazole [PriLOSEC] 40 mg PO DAILY 04/06/16 [History] Loratadine [Claritin] 10 mg PO DAILY 12/21/16 [History] Pregabalin [Lyrica] 150 mg PO TID 12/21/16 [History] diazePAM [Valium] 10 mg PO Q6HR PRN 09/05/17 [History] Atorvastatin [Lipitor] 40 mg PO HS 03/13/18 [History] Collagenase Oint [Santyl] 1 appl TP DAILY 03/13/18 [History] DULoxetine [Cymbalta] 30 mg PO BID 03/13/18 [History] Fluticasone Propionate Nasal [Flonase] 1 spr NS DAILY 03/13/18 [History] risperiDONE [Risperdal] 2 mg PO BID 03/13/18 [History] traZODone [TraZODone] 50 mg PO HS 03/13/18 [History] GlipiZIDE XL (24 HR) [Glucotrol XL] 2.5 mg PO DAILY #30 tab.er.24 03/22/18 [Rx] OxyCODONE/APAP 5/325 [Percocet 5/325 MG] 1 each PO Q6HR PRN 2 Days #8 tablet 03/22/18 [Rx] Wkblztdcxmvv-Msqt-Zoljpryr,Iso [Zosyn 3.375 gm/50 ml Galaxy] 3.375 gm IV Q8H #42 froz.piggy 03/22/18 [Rx] Allergies/Adverse Reactions: Allergy/AdvReac Type Severity Reaction Status Date / Time hydrocodone [From Vicodin] AdvReac Severe Nausea Verified 02/25/18 14:08 cephalexin [From Keflex] AdvReac Vomiting Verified 02/25/18 14:08 codeine AdvReac Confusion Verified 02/25/18 14:08 morphine AdvReac Rash Verified 02/25/18 14:08 Date of admission: 03/16/18 10:59 Primary care physician: Froylan Guido MD Consults: 03/13/18 14:53 Consult to Podiatry [CONS] Stat Consulting Provider: [facility] Reason for Consult: diabetic foot ulcer Call Completed: Yes 03/13/18 15:53 Consult to Broth Setter [CONS] Routine Reason for SW Consult: Alcoholism 03/17/18 07:53 Consult to Nephrology [CONS] Routine Consulting Provider: [facility]IMITIVO/MANDO/DIGNA Reason for Consult: BETH, possibly due to vanco use Call Completed: No 03/17/18 15:24 Consult to Infectious Diseases [CONS] Routine Consulting Provider: [facility] [place] Reason for Consult: DM foot ulcer Call Completed: No - Constitutional Vitals: Temp Pulse Resp BP Pulse Ox 98.0 F 77 15 159/87 95 03/22/18 10:00 03/22/18 10:00 03/22/18 10:25 03/22/18 10:00 03/22/18 10:25 General appearance: Present: A&O X 3, pleasant, no acute distress, answers questions appropriately Exam: Gen: Alert, awake, Oriented to time,place and person Chest: Diminished breath sounds B/L, No wheezing, No crackles, No rales Heart: S1S2+ RRR No murmurs Abd: Soft, NT, BS +, No organomegaly Ext: No calf tenderness, boots on both feet Neuro :non-focal Skin: No rash. - Patient Status Disposition: Home Health Service Condition: Good Overall status at discharge: patient is progressing back to baseline - Discharge Instructions Instructions: Acute Kidney Injury (DC), Diabetes Mellitus Type 2 in Adults (DC) Follow Up With: Froylan Guido MD [Primary Care Provider] - Sanford Taylor DPM [Partnered Physician] - Additional Instructions: Follow with Dr. Taylor in wound center on Sunday. Please call and make appointment prior to D/C. Follow up with ID and Nephrology - Diet and Activity Activity: as per physical therapy Diet: diabetic diet
--- NOTE | 2018-03-22 13:31 | Physician Discharge Referral ---
Home Health/Hosp Referral Info Transfer to: Home Health - Diagnosis (1) Diabetes mellitus Priority: Secondary Status: Chronic (2) HTN (hypertension) Priority: Secondary Status: Chronic (3) COPD (chronic obstructive pulmonary disease) Priority: Secondary Status: Chronic (4) Tobacco abuse Priority: Secondary Status: Chronic (5) Alcohol abuse Priority: Secondary Status: Chronic (6) Heel ulcer Priority: Primary Status: Acute (7) Fracture of three ribs of left side Priority: Secondary Status: Acute (8) CHLOE (obstructive sleep apnea) Priority: Secondary Status: Acute (9) Morbid obesity Priority: Secondary Status: Acute (10) Acute renal failure Priority: Secondary Status: Acute - Respiratory Orders Smoking Cessation: Smoking cessation has been advised. For more information, call the [place] Tobacco Quit Line at 2-909-[facility]-NOW. Other Treatments: zosyn q8 - Transfer Medications Prescriptions: OxyCODONE/APAP 5/325 [Percocet 5/325 MG] 1 each PO Q6HR PRN 2 Days #8 tablet PRN Reason: Pain GlipiZIDE XL (24 HR) [Glucotrol XL] 2.5 mg PO DAILY #30 tab.er.24 Xsuswzkjkjyx-Nrxp-Touekcph,Iso [Zosyn 4.5 gm/100 ml Galaxy Bag] 4.5 gm IV Q8H #42 froz.piggy Home Medications: Albuterol Sulfate [Albuterol Inhaler] 2 puff IH Q4HR PRN 04/06/16 [History] Metoprolol Succinate 100 mg PO BID 04/06/16 [History] Multivitamin [Multi-Day Vitamins] 1 tab PO DAILY 04/06/16 [History] [place]-3/Dha/Epa/Fish Oil [Fish Oil 1,000 mg Softgel] 2 cap PO BID 04/06/16 [History] Omeprazole [PriLOSEC] 40 mg PO DAILY 04/06/16 [History] Loratadine [Claritin] 10 mg PO DAILY 12/21/16 [History] Pregabalin [Lyrica] 150 mg PO TID 12/21/16 [History] diazePAM [Valium] 10 mg PO Q6HR PRN 09/05/17 [History] Atorvastatin [Lipitor] 40 mg PO HS 03/13/18 [History] Collagenase Oint [Santyl] 1 appl TP DAILY 03/13/18 [History] DULoxetine [Cymbalta] 30 mg PO BID 03/13/18 [History] Fluticasone Propionate Nasal [Flonase] 1 spr NS DAILY 03/13/18 [History] risperiDONE [Risperdal] 2 mg PO BID 03/13/18 [History] traZODone [TraZODone] 50 mg PO HS 03/13/18 [History] GlipiZIDE XL (24 HR) [Glucotrol XL] 2.5 mg PO DAILY #30 tab.er.24 03/22/18 [Rx] OxyCODONE/APAP 5/325 [Percocet 5/325 MG] 1 each PO Q6HR PRN 2 Days #8 tablet 03/22/18 [Rx] Fccoqywajuoq-Ioxk-Yvutiugc,Iso [Zosyn 4.5 gm/100 ml Galaxy Bag] 4.5 gm IV Q8H #42 froz.piggy 03/22/18 [Rx] Allergies/Adverse Reactions: Allergy/AdvReac Type Severity Reaction Status Date / Time hydrocodone [From Vicodin] AdvReac Severe Nausea Verified 02/25/18 14:08 cephalexin [From Keflex] AdvReac Vomiting Verified 02/25/18 14:08 codeine AdvReac Confusion Verified 02/25/18 14:08 morphine AdvReac Rash Verified 02/25/18 14:08 Certification: Further, I certify that my clinical findings support that this patient is homebound (i.e. absences from home require considerable and taxing effort and are for medical reasons or [employer] services or infrequently or short duration when for other reasons) because: Homebound Reason: Patient requires assistance of a person or device to safely leave home Attestation: My signature below is to certify that this patient is under my care and that I, or nurse practitioner, or a physician's high school assistant football coach working with me, has a cejw-hy-egio encounter with this patient.
[2018-03-25 13:53] LABS: ANA IgG by ELISA NONE DETECTED (None Detected); Myeloperoxidase Ab 0 AU/mL (0-19); Serine Protease-3 Antibody 3 AU/mL (0-19)
== END 2018-03-22 14:35 | disposition home health service (06) | DRG 361 ==
LOC: 3ANU 11:12 → EMEROOARM 11:12 → 3ANU 17:18 → SUATTDRO 03-16 10:59
PROVIDERS: ADMIT Internal Medicine Nephrology; ATTEND Internal Medicine

== ENCOUNTER 2018-10-07 14:33 | Inpatient (IN) ==
[2018-10-07] MEDS ORDERED: *HR* FentaNYL (PF) 100 MCG/2 ML VIAL IVP ONE ×2 (15:15→18:35)
--- NOTE | 2018-10-07 15:18 | Emergency Department Note ---
Disposition Clinical Impression: Leg wound, left Qualifiers: Encounter type: initial encounter Qualified Code(s): S81.802A - Unspecified open wound, left lower leg, initial encounter Disposition: Admitted As Inpatient Condition: Fair Referrals: Froylan Guido MD [Primary Care Provider] - Forms: ED Satisfaction Letter Time of Disposition: 16:48 General Adult HPI - General Chief complaint: ED Wound/Laceration Stated complaint: Wound Infected from Wound Care Time Seen by Provider: 10/07/18 14:41 Source: patient Limitations: no limitations - History of Present Illness Pain Scale: 9 - Related Data Home Medications Medication Instructions Recorded Confirmed Albuterol Sulfate [Albuterol 2 puff IH Q4HR PRN 04/06/16 03/13/18 Inhaler] Metoprolol Succinate 100 mg PO BID 04/06/16 03/13/18 Multivitamin [Multi-Day Vitamins] 1 tab PO DAILY 04/06/16 03/13/18 [place]-3/Dha/Epa/Fish Oil [Fish Oil 2 cap PO BID 04/06/16 03/13/18 1,000 mg Softgel] Omeprazole [PriLOSEC] 40 mg PO DAILY 04/06/16 03/13/18 Loratadine [Claritin] 10 mg PO DAILY 12/21/16 03/13/18 Pregabalin [Lyrica] 150 mg PO TID 12/21/16 03/13/18 diazePAM [Valium] 10 mg PO Q6HR PRN 09/05/17 03/13/18 Atorvastatin [Lipitor] 40 mg PO HS 03/13/18 03/13/18 Collagenase Oint [Santyl] 1 appl TP DAILY 03/13/18 03/13/18 DULoxetine [Cymbalta] 30 mg PO BID 03/13/18 03/13/18 Fluticasone Propionate Nasal 1 spr NS DAILY 03/13/18 03/13/18 [Flonase] risperiDONE [Risperdal] 2 mg PO BID 03/13/18 03/13/18 traZODone [TraZODone] 50 mg PO HS 03/13/18 03/13/18 Previous Rx's Medication Instructions Recorded GlipiZIDE XL (24 HR) [Glucotrol XL] 2.5 mg PO DAILY #30 tab.er.24 03/22/18 Allergies Allergy/AdvReac Type Severity Reaction Status Date / Time hydrocodone [From Vicodin] AdvReac Severe Nausea Verified 02/25/18 14:08 cephalexin [From Keflex] AdvReac Vomiting Verified 02/25/18 14:08 codeine AdvReac Confusion Verified 02/25/18 14:08 morphine AdvReac Rash Verified 02/25/18 14:08 Past Medical History - Past Medical History Medical history: Reports: arthritis, COPD, diabetes, GERD, hypertension Surgical history: Reports: orthopedic, other, other Psychiatric history: Reports: anxiety, depression - Social History Smoking Status: Current every day smoker Smokeless Tobacco Status: No Alcohol use: Reports: heavy Drug use: Reports: none Physical Exam - General Limitations: no limitations General appearance: alert, in no apparent distress Course Vital Signs Temperature 97.4 F L 10/07/18 14:34 Pulse Rate 72 10/07/18 14:34 Respiratory Rate 18 10/07/18 14:34 Blood Pressure 118/75 10/07/18 14:34 O2 Sat by Pulse Oximetry 97 10/07/18 14:34 Temperature 97.4 F L 10/07/18 14:34 Pulse Rate 72 10/07/18 14:34 Respiratory Rate 18 10/07/18 14:34 Blood Pressure 118/75 10/07/18 14:34 O2 Sat by Pulse Oximetry 97 10/07/18 14:34 Oxygen Delivery Oxygen Delivery Room Air Medical Decision Making - Lab Data Result diagrams: 10/07/18 15:22 10/07/18 15:22 Lab Results 10/07/18 10/07/18 10/07/18 Range/Units 15:22 15:22 15:22 WBC 5.7 (4.3-11.1) K/mcL RBC 3.97 L (4.19-5.50) M/mcL Hgb 12.7 L (12.9-16.9) g/dL Hct 37.5 (37.5-50.1) % MCV 94.5 (83.0-100.0) fL MCH 32.0 (28.0-33.3) pg MCHC 33.9 (31.6-35.5) g/dL RDW 13.2 (11.5-14.5) % Plt Count 123 L (140-400) K/mcL MPV 9.5 (9.4-12.4) fL Immature Gran % 0.3 (0-4) % Seg Neutrophils % 58.0 % Lymphocytes % 27.1 % Monocytes % 13.1 % Eosinophils % 1.2 % Basophils % 0.3 % Neutrophils # 3.3 (1.6-8.9) K/mcL Lymphocytes # 1.6 (0.6-4.6) K/mcL Monocytes # 0.8 (0.0-1.3) K/mcL Eosinophils # 0.1 (0.0-0.6) K/mcL Basophils # 0.0 (0.0-0.2) K/mcL Sodium 136 (136-145) mEq/L Potassium 4.7 (3.5-5.1) mEq/L Chloride 102 (98-107) mEq/L Carbon Dioxide 26 (23-29) mEq/L BUN 23 H (6-20) mg/dL Creatinine 0.82 (0.70-1.30) mg/dL Est GFR ( Amer) > 60 (> 60) Est GFR (Non-Af Amer) > 60 (> 60) BUN/Creatinine Ratio 28 H (6-26) Glucose 130 H (70-105) mg/dL Calculated Osmolality 287 (280-300) Lactic Acid 1.5 (0.5-2.2) mmol/L Calcium 9.3 (8.6-10.3) mg/dL Attestation Statement - Attestation Attestation: I examined this patient and my medical decision-making was reviewed with the Resident Physician. I agree with the documented findings, disposition and treatment plan as described except to the extent set forth below. Patient presents to the ED with a chief complaint of leg when. Onset last week. He has been seen by wound care. He has been taking Levaquin and clindamycin. He followed up today and was sent to the ED. No fevers. No vomiting. He was either one of the bottom of his foot that is healing nicely. On examination the patient has an open wound to the left lateral leg distally. There is visualized tendon. Plan. Cultures were sent from wound care. Septic workup. IV antibiotics. X-ray and admit. No fever. Normal white count. Patient is admitted for IV antibiotics. Dr. Tellez accepts.. Tibia/Fibula X-Ray 10/07/18 15:06 IMPRESSION: Deep soft tissue ulcer along the distal lateral calf, without radiographic evidence of osteomyelitis. A bone scan or MRI would be a more sensitive exam. D/ / Sinan Arredondo MD / Sinan Arredondo MD Interpreting Provider: Sinan Arredondo MD
[2018-10-07 15:36] LABS: Basophils % 0.3 %; Eosinophils # 0.1 K/mcL (0.0-0.6); Eosinophils % 1.2 %; Hematocrit 37.5 % (37.5-50.1); Hemoglobin 12.7 g/dL (12.9-16.9); Immature Granulocytes % 0.3 % (0-4); Lymphocytes # 1.6 K/mcL (0.6-4.6); Lymphocytes % 27.1 %; Mean Corpuscular HGB Conc 33.9 g/dL (31.6-35.5); Mean Corpuscular Volume 94.5 fL (83.0-100.0); Mean Platelet Volume 9.5 fL (9.4-12.4); Monocytes # 0.8 K/mcL (0.0-1.3); Monocytes % 13.1 %; Neutrophils # 3.3 K/mcL (1.6-8.9); Platelet Count 123 K/mcL (140-400); Red Blood Count 3.97 M/mcL (4.19-5.50); Red Cell Distribution Width 13.2 % (11.5-14.5)
[2018-10-07 15:58] LABS: BUN/Creatinine Ratio 28 (6-26); Blood Urea Nitrogen 23 mg/dL (6-20); Calcium 9.3 mg/dL (8.6-10.3); Carbon Dioxide 26 mEq/L (23-29); Chloride 102 mEq/L (98-107); Glucose 130 mg/dL (70-105); Osmolality,Calculated 287 (280-300); Potassium 4.7 mEq/L (3.5-5.1); Sodium 136 mEq/L (136-145); eGFR For Non-African Americans > 60 (> 60)
[2018-10-07] MEDS ORDERED: Piperacillin/Tazobactam 3.375 GM in 0.9 % Sodium Chloride Mini Bag 100 ML IVPB ONE (16:02)
[2018-10-07] MEDS ORDERED: Naloxone 0.4 MG/ML INJ IVP PRN (16:51)
[2018-10-07] MEDS ORDERED: Dextrose Gel 15 GM/37.5 ML TUBE PO PRN ×2 (16:52)
[2018-10-07] MEDS ORDERED: *HR* Dextrose 50 % in Water (Syg) 50 ML SYRINGE IVP PRN (16:52)
[2018-10-07] MEDS ORDERED: D5% in Water 1,000 ML IVC PRN (16:52)
--- NOTE | 2018-10-07 17:15 | Emergency Department Note ---
Disposition Clinical Impression: Leg wound, left Qualifiers: Encounter type: initial encounter Qualified Code(s): S81.802A - Unspecified open wound, left lower leg, initial encounter Disposition: Admitted As Inpatient Condition: Fair Time of Disposition: 16:30 General Adult HPI - General Chief complaint: ED Wound/Laceration Stated complaint: Wound Infected from Wound Care Time Seen by Provider: 10/07/18 14:41 Source: patient Mode of arrival: ambulatory Limitations: no limitations Nursing Notes Reviewed: Yes Vital Signs Reviewed: Yes - History of Present Illness HPI Narrative: Patient is a 48-year-old male with past medical history of diabetes as well as chronic foot ulcers that are followed by wound clinic presents to the ED for evaluation of a worsening left sided foot wound. He was sent here by the wound. Clinic after there is concern for exposed tendon on the left lateral portion of his lower leg. Patient himself denies any fevers, chills, nausea, vomiting or any drainage from the affected area. Pain Scale: 9 - Related Data Home Medications Medication Instructions Recorded Confirmed Albuterol Sulfate [Albuterol 2 puff IH Q4HR PRN 04/06/16 03/13/18 Inhaler] Metoprolol Succinate 100 mg PO BID 04/06/16 03/13/18 Multivitamin [Multi-Day Vitamins] 1 tab PO DAILY 04/06/16 03/13/18 [place]-3/Dha/Epa/Fish Oil [Fish Oil 2 cap PO BID 04/06/16 03/13/18 1,000 mg Softgel] Omeprazole [PriLOSEC] 40 mg PO DAILY 04/06/16 03/13/18 Loratadine [Claritin] 10 mg PO DAILY 12/21/16 03/13/18 Pregabalin [Lyrica] 150 mg PO TID 12/21/16 03/13/18 diazePAM [Valium] 10 mg PO Q6HR PRN 09/05/17 03/13/18 Atorvastatin [Lipitor] 40 mg PO HS 03/13/18 03/13/18 Collagenase Oint [Santyl] 1 appl TP DAILY 03/13/18 03/13/18 DULoxetine [Cymbalta] 30 mg PO BID 03/13/18 03/13/18 Fluticasone Propionate Nasal 1 spr NS DAILY 03/13/18 03/13/18 [Flonase] risperiDONE [Risperdal] 2 mg PO BID 03/13/18 03/13/18 traZODone [TraZODone] 50 mg PO HS 03/13/18 03/13/18 Previous Rx's Medication Instructions Recorded GlipiZIDE XL (24 HR) [Glucotrol XL] 2.5 mg PO DAILY #30 tab.er.24 03/22/18 Allergies Allergy/AdvReac Type Severity Reaction Status Date / Time hydrocodone [From Vicodin] AdvReac Severe Nausea Verified 02/25/18 14:08 cephalexin [From Keflex] AdvReac Vomiting Verified 02/25/18 14:08 codeine AdvReac Confusion Verified 02/25/18 14:08 morphine AdvReac Rash Verified 02/25/18 14:08 All systems ED: reviewed and negative except as stated. Review of Systems: As Per HPI Constitutional: Denies: fever, chills Integumentary: Reports: other (Wounds to bilateral lower extremities.). Denies: rash Past Medical History - Past Medical History Attestation: Yes The following information was validated with the patient. Medical history: Reports: arthritis, COPD, diabetes, GERD, hypertension Surgical history: Reports: orthopedic, other, other Psychiatric history: Reports: anxiety, depression - Social History Smoking Status: Current every day smoker Smokeless Tobacco Status: No Alcohol use: Reports: heavy Drug use: Reports: none Physical Exam - General Limitations: no limitations General appearance: alert, in no apparent distress - Head Head exam: atraumatic, normocephalic, normal inspection - Eye Eye exam: Present: normal appearance, PERRL, EOMI - ENT ENT exam: normal exam, normal oropharynx, mucous membranes moist - Neck Neck exam: Present: normal inspection, full ROM, trachea midline - Chest Chest inspection: Present: normal inspection, symmetric chest wall rise - Respiratory Respiratory exam: Present: normal lung sounds bilaterally - Cardiovascular Cardiovascular exam: Present: regular rate, normal rhythm, normal heart sounds, +S1, +S2 - Abdominal Exam Abdominal exam: Present: soft, Non-Tender. Absent: tenderness, distention, guarding, rebound, rigidity - Expanded Lower Extremity Exam Foot/toe exam: Present: other (Multiple ulcers of the left lower extremity including a well healing ulcer on the posterior aspect of the ankle. Patient has a 3 x 5 cm ulceration to the left lateral lower leg that does have exposed tendon but no surrounding erythema or drainage at this time. No crepitance.) - Skin Skin exam: Present: warm, dry, normal color, other (Refer to lower extremity exam) Course Course Narrative: Patient was sent in by the wound clinic for admission for IV antibiotics. I discussed the patient's case with the foreign policy officer, Dr. Mancia and he agrees to see the patient in consultation with admission to the hospitalist. He states that the patient will need an MRI on admission. Recommended vancomycin. Vital Signs Temperature 97.4 F L 10/07/18 14:34 Pulse Rate 72 10/07/18 14:34 Respiratory Rate 18 10/07/18 14:34 Blood Pressure 118/75 10/07/18 14:34 O2 Sat by Pulse Oximetry 97 10/07/18 14:34 Temperature 97.4 F L 10/07/18 14:34 Pulse Rate 72 10/07/18 14:34 Respiratory Rate 18 10/07/18 14:34 Blood Pressure 118/75 10/07/18 14:34 O2 Sat by Pulse Oximetry 97 10/07/18 14:34 Oxygen Delivery Oxygen Delivery Room Air Medical Decision Making - Medical Records Medical records reviewed: Yes I reviewed the patient's medical records. - Lab Data Lab results reviewed: Yes I reviewed the patient's lab results. Result diagrams: 10/07/18 15:22 10/07/18 15:22 Lab Results 10/07/18 10/07/18 10/07/18 Range/Units 15:22 15:22 15:22 WBC 5.7 (4.3-11.1) K/mcL RBC 3.97 L (4.19-5.50) M/mcL Hgb 12.7 L (12.9-16.9) g/dL Hct 37.5 (37.5-50.1) % MCV 94.5 (83.0-100.0) fL MCH 32.0 (28.0-33.3) pg MCHC 33.9 (31.6-35.5) g/dL RDW 13.2 (11.5-14.5) % Plt Count 123 L (140-400) K/mcL MPV 9.5 (9.4-12.4) fL Immature Gran % 0.3 (0-4) % Seg Neutrophils % 58.0 % Lymphocytes % 27.1 % Monocytes % 13.1 % Eosinophils % 1.2 % Basophils % 0.3 % Neutrophils # 3.3 (1.6-8.9) K/mcL Lymphocytes # 1.6 (0.6-4.6) K/mcL Monocytes # 0.8 (0.0-1.3) K/mcL Eosinophils # 0.1 (0.0-0.6) K/mcL Basophils # 0.0 (0.0-0.2) K/mcL Sodium 136 (136-145) mEq/L Potassium 4.7 (3.5-5.1) mEq/L Chloride 102 (98-107) mEq/L Carbon Dioxide 26 (23-29) mEq/L BUN 23 H (6-20) mg/dL Creatinine 0.82 (0.70-1.30) mg/dL Est GFR ( Amer) > 60 (> 60) Est GFR (Non-Af Amer) > 60 (> 60) BUN/Creatinine Ratio 28 H (6-26) Glucose 130 H (70-105) mg/dL Calculated Osmolality 287 (280-300) Lactic Acid 1.5 (0.5-2.2) mmol/L Calcium 9.3 (8.6-10.3) mg/dL - Radiology Data Radiology results reviewed: Yes I reviewed the patient's radiology results. Tibia/Fibula X-Ray 10/07/18 15:06 IMPRESSION: Deep soft tissue ulcer along the distal lateral calf, without radiographic evidence of osteomyelitis. A bone scan or MRI would be a more sensitive exam. D/ / Sinan Arredondo MD / Sinan Arredondo MD Interpreting Provider: Sinan Arredondo MD
[2018-10-07] MEDS ORDERED: *HR* LORazepam 2 MG/ML VIAL IVP PRN ×3 (17:36)
[2018-10-07] MEDS ORDERED: Nicotine 2 MG GUM BC PRN (17:37)
[2018-10-07] MEDS ORDERED: OXYCODONE Oral CONC 10 MG/0.5 ML ORAL.SYG SL PRN (17:39)
--- NOTE | 2018-10-07 17:46 | Internal Med History&Physical ---
Date of Encounter: 10/07/18 Time of Encounter: 17:30 Internal Medicine - H&P: HPI Chief complaint: Left leg wound infection Admitted From: Emergency Dept Plans for Post Hospital Care: Home History of present illness: Mr. Parish is a 48 year old male patient with history of diabetes and chronic heel ulcers in both lower extremities feet, diabetes who presented to the ER from wound care clinic for infection involving an ulcer on his left lower extremity just above the lateral malleolus with an exposed tendon. Patient has been having worsening pain. His symptoms began 2 months back at this site. During that time he was being treated with the wound VAC for an ulcer on his left heel. He states due to pressure on the wound VAC he developed a blister which then transition to an ulcer. This was also being managed with a wound VAC but was removed recently. During a follow-up to the wound care clinic today, he was advised to come to the ER for further management due to worsening infection. He denies any fevers or chills. Patient is a chronic alcoholic and drinks up to 20-24 drinks every day. He is also a chronic smoker. Past Med Surg Social Fam HX - Past Medical History Attestation: Yes The following information was validated with the patient. Source: patient Medical history: arthritis, COPD, diabetes, GERD, hypertension Additional medical history: history of MRSA in left foot Psychiatric history: anxiety, depression - Past Surgical History Surgical History: orthopedic, other, other Additional surgical history: graft placement to left plantar foot X5 - Social History Smoking Status: Current every day smoker Smokeless Tobacco Status: No Alcohol use: heavy Drug use: none - Family History Mother Adopted: No Living Status: Still Living Hx Family Cardiac Disorders: Yes Hx Family Respiratory Disorders: Yes Hx Family Cancer: No Hx Family GI Disorders: No Hx Family Endocrine Disorder: No Hx Family Neuromuscular Disorders: No Hx Family Neurologic Disorders: No Hx Family HEENT Disorders: No Hx Family Autoimmune Disorders: No Father Adopted: No Family Member Ethnicity: Non- Living Status: Hx Family Cardiac Disorders: Yes Hx Family Respiratory Disorders: Yes Hx Family Cancer: Yes Hx Family GI Disorders: No Hx Family Endocrine Disorder: Yes Hx Family Neuromuscular Disorders: No Hx Family Neurologic Disorders: No Hx Family HEENT Disorders: No Hx Family Autoimmune Disorders: No Internal Medicine - H&P: Meds Albuterol Sulfate [Albuterol Inhaler] 2 puff IH Q4HR PRN 04/06/16 [History] Metoprolol Succinate 100 mg PO BID 04/06/16 [History] Multivitamin [Multi-Day Vitamins] 1 tab PO DAILY 04/06/16 [History] [place]-3/Dha/Epa/Fish Oil [Fish Oil 1,000 mg Softgel] 2 cap PO BID 04/06/16 [History] Omeprazole [PriLOSEC] 40 mg PO DAILY 04/06/16 [History] Loratadine [Claritin] 10 mg PO DAILY 12/21/16 [History] Pregabalin [Lyrica] 150 mg PO TID 12/21/16 [History] diazePAM [Valium] 10 mg PO Q6HR PRN 09/05/17 [History] Atorvastatin [Lipitor] 40 mg PO HS 03/13/18 [History] Collagenase Oint [Santyl] 1 appl TP DAILY 03/13/18 [History] DULoxetine [Cymbalta] 30 mg PO BID 03/13/18 [History] Fluticasone Propionate Nasal [Flonase] 1 spr NS DAILY 03/13/18 [History] risperiDONE [Risperdal] 2 mg PO BID 03/13/18 [History] traZODone [TraZODone] 50 mg PO HS 03/13/18 [History] GlipiZIDE XL (24 HR) [Glucotrol XL] 2.5 mg PO DAILY #30 tab.er.24 03/22/18 [Rx] Allergy/AdvReac Type Severity Reaction Status Date / Time hydrocodone [From Vicodin] AdvReac Severe Nausea Verified 02/25/18 14:08 cephalexin [From Keflex] AdvReac Vomiting Verified 02/25/18 14:08 codeine AdvReac Confusion Verified 02/25/18 14:08 morphine AdvReac Rash Verified 02/25/18 14:08 All Systems PM: A 10-system review of systems was performed and is negative for pertinent findings except as documented above in the HPI. - Constitutional Constitutional: no chills, no fever(s), no night sweats - EENT Eyes: no change in vision, no discharge, no pain, no photophobia Ears: no ear discharge, no ear pain, no tinnitus Nose, mouth and throat: no dysphagia, no nasal discharge, no neck pain, no sore throat - Cardiovascular Cardiovascular ROS IM: no chest pain, no diaphoresis, no dyspnea, no lightheadedness, no palpitations, no syncope - Respiratory Respiratory: no cough, no dyspnea, no wheezing, no excessive phlegm production - Gastrointestinal Gastrointestinal: no abdominal pain, no diarrhea, no hematemesis, no hematochezia, no melena, no nausea, no vomiting - Musculoskeletal Musculoskeletal ROS IM: no numbness, no tingling - Integumentary Integumentary IM: rash, skin ulcer, no unusual bruising - Neurological Neurological ROS: no confusion, no convulsions, no focal weakness, no numbness, no tingling, no tremor(s) - Hematologic/Lymphatic Hematologic/Lymphatic: no easy bruising - Constitutional Vitals: Temp Pulse Resp BP Pulse Ox 97.4 F L 72 18 118/75 97 10/07/18 14:34 10/07/18 14:34 10/07/18 14:34 10/07/18 14:34 10/07/18 14:34 General appearance: Present: cooperative, A&O X 3, pleasant, answers questions appropriately Exam: General: Patient is alert, no acute distress, oriented x 3 Head: atraumatic, normocephalic, ENT: Mucous membranes moist Eye: normal appearance, PERRL, no scleral icterus, no conjunctival injection Neck: normal inspection, trachea midline, full ROM, no carotid bruits Chest: normal inspection, symmetric chest rise Respiratory: Good respiratory effort. Normal breath sounds. No wheezing or crackles. Cardiovascular: Regular rate and rhythm. s1 and s2 normal No clicks, rubs, gallops, or murmurs. No pedal edema Abdomen: Abdomen is soft, nontender. Bowel sounds are present Musculoskeletal: Spontaneously moving all extremities; patient has an ulcer over his lateral lower leg with visible tendon measuring 3 x 5 cm in size. Patient also has a healing ulcer on the left heel. There is another ulcer on the right heel with bandage on top. Skin: warm, dry, intact. Neuro: Alert oriented x 3 normal cranial nerves, no focal deficits Psych: Patient's affect is normal Internal Med - H&P Results - Labs CBC & Chem 7: 10/07/18 15:22 10/07/18 15:22 Labs: Short CBC 10/07/18 Range/Units 15:22 WBC 5.7 (4.3-11.1) K/mcL Hgb 12.7 L (12.9-16.9) g/dL Hct 37.5 (37.5-50.1) % Plt Count 123 L (140-400) K/mcL Neutrophils # 3.3 (1.6-8.9) K/mcL BMP 10/07/18 15:22 Sodium 136 Potassium 4.7 Chloride 102 Carbon Dioxide 26 BUN 23 H Creatinine 0.82 Glucose 130 H Calcium 9.3 - Impressions ITS Impressions Tibia/Fibula X-Ray 10/07/18 15:06 IMPRESSION: Deep soft tissue ulcer along the distal lateral calf, without radiographic evidence of osteomyelitis. A bone scan or MRI would be a more sensitive exam. D/ / Sinan Arredondo MD / Sinan Arredondo MD Interpreting Provider: Sinan Arredondo MD - Assessment and Plan (1) Leg wound, left Current Visit: Yes Status: Acute Assessment and plan: Patient with acute infection involving the left lower extremity with open wound and visible tendon. Will treat patient with intravenous IV antibiotics. Obtain MRI to look for tenosynovitis and underlying osteomyelitis. Consult podiatry for evaluation as patient may need debridement. Follow wound cultures that were sent recently. Follow blood cultures. Most recent wound cultures grew Proteus which was ESBL. Will place patient on ertapenem and also add Flagyl for anaerobic coverage. Consult infectious disease for evaluation and recommenda tion of antibiotics. High risk for complications. Qualifiers: Encounter type: initial encounter Qualified Code(s): S81.802A - Unspecified open wound, left lower leg, initial encounter (2) Diabetes mellitus Current Visit: Yes Status: Chronic Assessment and plan: Monitor blood sugars. Sliding scale insulin. Diabetic diet when patient is able to eat. Qualifiers: Diabetes mellitus type: type 2 Diabetes mellitus jail insulin use: without intermodal customer service use Diabetes mellitus complication status: with skin complications Diabetes mellitus complication detail: with foot ulcer Qualified Code(s): E11.621 - Type 2 diabetes mellitus with foot ulcer; L97.509 - Non-pressure chronic ulcer of other part of unspecified foot with unspecified severity (3) COPD (chronic obstructive pulmonary disease) Current Visit: Yes Status: Chronic Assessment and plan: Will place patient on bronchodilators as needed. Currently not in acute exacerbation. Qualifiers: COPD type: unspecified COPD Qualified Code(s): J44.9 - Chronic obstructive pulmonary disease, unspecified (4) Heel ulcer Current Visit: Yes Status: Acute Assessment and plan: Bilateral heel ulcers. Will consult podiatry for evaluation. Qualifiers: Laterality: unspecified laterality Non-pressure ulcer stage: with fat layer exposed Qualified Code(s): L97.402 - Non-pressure chronic ulcer of unspecified heel and midfoot with fat layer exposed (5) HTN (hypertension) Current Visit: Yes Status: Chronic Assessment and plan: Monitor blood pressure. Resume home medications. Qualifiers: Hypertension type: essential hypertension Qualified Code(s): I10 - Essential (primary) hypertension (6) Tobacco abuse Current Visit: Yes Status: Acute Assessment and plan: Patient with chronic smoking history. We will place him on nicotine patch. (7) Alcohol abuse Current Visit: Yes Status: Chronic Assessment and plan: Operative for withdrawal. We will place patient on CIWA protocol. - Time Spent With Patient Total time spent is greater than 50% in coordination of care (as documented) at patient's floor/unit and/or counseling patient:
[2018-10-07] MEDS ORDERED: Vancomycin 0 MG in 0.9 % Sodium Chloride 250 ML IVPB SCH (18:00)
[2018-10-07] MEDS ORDERED: Ertapenem 1,000 MG in 0.9 % Sodium Chloride Mini Bag 100 ML IVPB SCH (19:00)
[2018-10-07] MEDS: Metoprolol XL (24 HR) Succ 50 MG TAB.ER.24H PO SCH (23:32)
[2018-10-07] MEDS: OXYCODONE Oral CONC 10 MG/0.5 ML ORAL.SYG SL PRN (23:32)
[2018-10-07] MEDS: *HR* Heparin 5,000 UNIT/ML VIAL SQ SCH (23:33)
[2018-10-07] MEDS: Nicotine 21 MG PATCH.TD24 TD SCH (23:33)
[2018-10-07] MEDS: Insulin LISPRO 300 UNITS/3 ML VIAL SQ SCH (23:49)
[2018-10-08] MEDS ORDERED: Piperacillin/Tazobactam 3.375 GM in 0.9 % Sodium Chloride Mini Bag 100 ML IVPB SCH
[2018-10-08] MEDS: MetroNIDAZOLE 500 MG/100 ML 500 MG/100 ML BAG IVPB SCH ×2 (00:09→08:25)
[2018-10-08] MEDS: OXYCODONE Oral CONC 10 MG/0.5 ML ORAL.SYG SL PRN ×5 (03:55→20:58)
[2018-10-08 05:50] LABS: Basophils % 0.6 %; Eosinophils # 0.1 K/mcL (0.0-0.6); Eosinophils % 1.2 %; Hematocrit 35.3 % (37.5-50.1); Hemoglobin 11.5 g/dL (12.9-16.9); Immature Granulocytes % 0.4 % (0-4); Lymphocytes # 0.7 K/mcL (0.6-4.6); Lymphocytes % 13.8 %; Mean Corpuscular HGB Conc 32.6 g/dL (31.6-35.5); Mean Corpuscular Hemoglobin 31.3 pg (28.0-33.3); Mean Corpuscular Volume 96.2 fL (83.0-100.0); Mean Platelet Volume 9.4 fL (9.4-12.4); Monocytes # 0.8 K/mcL (0.0-1.3); Monocytes % 16.5 %; Neutrophils # 3.3 K/mcL (1.6-8.9); Platelet Count 119 K/mcL (140-400); Red Blood Count 3.67 M/mcL (4.19-5.50); Red Cell Distribution Width 13.3 % (11.5-14.5); Segmented Neutrophils % 67.5 %
[2018-10-08] MEDS: *HR* Heparin 5,000 UNIT/ML VIAL SQ SCH ×2 (06:05→17:25)
[2018-10-08 06:11] LABS: BUN/Creatinine Ratio 25 (6-26); Blood Urea Nitrogen 20 mg/dL (6-20); Carbon Dioxide 25 mEq/L (23-29); Chloride 104 mEq/L (98-107); Glucose 97 mg/dL (70-105); Osmolality,Calculated 287 (280-300); Potassium 4.4 mEq/L (3.5-5.1); Sodium 137 mEq/L (136-145); eGFR For Non-African Americans > 60 (> 60)
[2018-10-08] MEDS: Insulin LISPRO 300 UNITS/3 ML VIAL SQ SCH ×4 (07:20→20:50)
[2018-10-08] MEDS: Thiamine (B-1) 100 MG TABLET PO SCH (08:25)
[2018-10-08] MEDS: Folic Acid 1 MG TABLET PO SCH (08:25)
[2018-10-08] MEDS: Metoprolol XL (24 HR) Succ 50 MG TAB.ER.24H PO SCH ×2 (08:26→20:51)
[2018-10-08] MEDS: Nicotine 21 MG PATCH.TD24 TD SCH (08:26)
--- NOTE | 2018-10-08 09:44 | Podiatry Consult Note ---
Date of Encounter: 10/08/18 Time of Encounter: 09:00 Assessment and Plan (1) Ulcer of right heel and midfoot with fat layer exposed Current visit: Yes Status: Acute Assessment: -Antonio stage II ulcer noted right lateral calncaneus with granular and fibrin tissue noted to wound base. Some erythema is noted around the ulcer. Minimal serosangineous drainage. No odor. No lympangitis. -2/4 PT/DP pulse noted -WBC 4.9 -ESR 6, CRP pending -Blood cultures pending -Patient receiving IV Vancomysin, Zosyn, Ertapenem, and Flagyl, ID consulted Plan: -Area cleaned with sterile saline and pat dry -Covered with adaptic, 4x4, and Kerlix, secured with medipore tape -Patient may eat today -NPO after midnight -Patient to OR tomorrow with Dr. Bower for preparation of bilateral wounds for graft, application of graft, removal of non-viable tissue left leg wound -Nature of the procedure, risk versus benefits, potential complications, consequences of surgery, and condition discussed. All questions and concerns addressed. Consent signed and placed in chart (2) Leg wound, left Current visit: Yes Status: Acute Assessment -Antonio stage IV ulcer noted left lateral distal extremity measuring 5 x 3.7 cm and tendon exposed. Wound base with necrotic tissue. Minimal serosangineous drainage -2/4 PT/DP pulse noted -WBC 4.9 -ESR 6, CRP pending -Blood cultures pending -Final wound cultures from 10/03/2018 Proteus mirabilis -Patient receiving IV Vancomysin, Zosyn, Ertapenem, and Flagyl, ID consulted -MRI showed evidence of a wound on the lateral aspect of the distal left leg measures 3 x 2.7 cm exposing the peroneus longus and brevis tendons. Extensive myositis throughout the peroneal compartment with tenosynovitis of the peroneal tendons in the retromalleolar region. Extensive myositis in the anterior compartment throughout the leg. Mild myositis in the posterior tibialis and flexor hallucis longus musculature of the mid-distal leg. No soft tissue abscess. No change of acute osteomyelitis. Plan: -Area cleaned with sterile saline and pat dry -Covered with adaptic, 4x4, and Kerlix, secured with medipore tape -Scabbed area to left foot covered with 4x4 and Kerlix and healing ulcer to left calcaneus covered with adaptic, 4x4, and Kerlix -Patient may eat today -NPO after midnight -Patient to OR tomorrow with Dr. Bower for preparation of bilateral wounds for graft, application of graft, removal of non-viable tissue left leg wound -Nature of the procedure, risk versus benefits, potential complications, consequences of surgery, and condition discussed. All questions and concerns addressed. Consent signed and placed in chart. Qualifiers: Encounter type: initial encounter Qualified Code(s): S81.802A - Unspecified open wound, left lower leg, initial encounter (3) Diabetes mellitus Current visit: Yes Status: Chronic Assessment: -Blood sugar 97 -Hgb A1c 5.3 on 09/02/2018 Plan: -Tight glycemic control to prevent further complication and promote healing - primary managing Qualifiers: Diabetes mellitus type: type 2 Diabetes mellitus custodial insulin use: without termite control representative use Diabetes mellitus complication status: with skin complications Diabetes mellitus complication detail: with foot ulcer Qualified Code(s): E11.621 - Type 2 diabetes mellitus with foot ulcer; L97.509 - Non-pressure chronic ulcer of other part of unspecified foot with unspecified severity (4) Tobacco abuse Current visit: No Status: Chronic Assessment: -Patient does report chronic tobacco use Plan: -Smoking cessation to promote wound healing and prevent further complication History of Present Illness HPI: Mr. Parish is a 48 year old male who presents to the hospital with an infected ulcer left lower extremity and ulcer right heel. Patient does have a past medical history that includes arthritis, COPD, diabetes, GERD, and hypertension. Patient reports that he developed the ulcer to his left lateral lower extremity 2-3 months ago and it started as a small blister that was caused from the tubing being used in conjunction with his wound vac. He reports the right heel ulcer started in February. Patient has been receiving treatment for the ulcers [facility] by [facility] and was told to go to the Emergency Room yesterday due to the worsening of the infection and ulcer. Patient does report that Dr. Taylor saw him last and debrided the area on his left lower extremity, took cultures, and recommended he have surgery. Wound cultures from 10/03/2018 are final for Proteus mirabilis. While in the ER he did have labs drawn and CBC showed a WBC of 5.7 and ESR of 66. He underwent an MRI of the left ankle and lower extremity that showed evidence of a wound on the lateral aspect of the distal left leg measures 3 x 2.7 cm exposing the peroneus longus and brevis tendons. Extensive myositis throughout the peroneal compartment with tenosynovitis of the peroneal tendons in the retromalleolar region. Extensive myositis in the anterior compartment throughout the leg. Mild myositis in the posterior tibialis and flexor hallucis longus musculature of the mid-distal leg. No soft tissue abscess. No change of acute osteomyelitis. Upon meeting with patient is an alert and oriented x 3 male sitting in bed with no acute distress noted. He does report pain to the left lower extremity that he rates as a 9.5. Patient denies any fever, chills, n/v/d. He denies any chest pain or shortness of breath. Patient does report occasional calf tenderness left calf. Patient reports he drinks 24-30 beers per day and is a smoker. He denies any illicit drug use except states he does take a Percocet that has not been prescribed for him occasionally for pain. 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 Psychiatric history: anxiety, depression - Past Surgical History Surgical History: orthopedic, other, other Additional surgical history: graft placement to left plantar foot X5 - Social History Smoking Status: Current every day smoker Smokeless Tobacco Status: No Alcohol use: heavy Drug use: none - Family History Mother Adopted: No Living Status: Still Living Hx Family Cardiac Disorders: Yes Hx Family Respiratory Disorders: Yes Hx Family Cancer: No Hx Family GI Disorders: No Hx Family Endocrine Disorder: No Hx Family Neuromuscular Disorders: No Hx Family Neurologic Disorders: No Hx Family HEENT Disorders: No Hx Family Autoimmune Disorders: No Father Adopted: No Family Member Ethnicity: Non- Living Status: Hx Family Cardiac Disorders: Yes Hx Family Respiratory Disorders: Yes Hx Family Cancer: Yes Hx Family GI Disorders: No Hx Family Endocrine Disorder: Yes Hx Family Neuromuscular Disorders: No Hx Family Neurologic Disorders: No Hx Family HEENT Disorders: No Hx Family Autoimmune Disorders: No Medications and Allergies Albuterol Sulfate [Albuterol Inhaler] 2 puff IH Q4HR PRN 04/06/16 [History] [place]-3/Dha/Epa/Fish Oil [Fish Oil 1,000 mg Softgel] 2,000 mg PO BID 04/06/16 [History] Omeprazole [PriLOSEC] 40 mg PO DAILY 04/06/16 [History] Loratadine [Claritin] 10 mg PO DAILY 12/21/16 [History] Pregabalin [Lyrica] 150 mg PO TID 12/21/16 [History] diazePAM [Valium] 10 mg PO 2-3XD PRN 09/05/17 [History] Atorvastatin [Lipitor] 40 mg PO HS 03/13/18 [History] Collagenase Oint [Santyl] 1 appl TP BID 03/13/18 [History] Fluticasone Propionate Nasal [Flonase] 1 spr NS BID 03/13/18 [History] risperiDONE [Risperdal] 2 mg PO QAM 03/13/18 [History] Clindamycin HCl 300 mg PO QID 10/08/18 [History] Ibuprofen [Motrin] 600 mg PO BID PRN 10/08/18 [History] Meloxicam [Mobic] 15 mg PO DAILY 10/08/18 [History] Metformin HCl 500 mg PO BIDWM 10/08/18 [History] Metoprolol Succinate [Toprol Xl] 100 mg PO BID 10/08/18 [History] Multivitamin [One Daily] 1 tab PO QAM 10/08/18 [History] Quinapril HCl [Accupril] 40 mg PO DAILY 10/08/18 [History] Sennosides/Docusate Sodium [Senna Plus] 1 tab PO DAILY PRN 10/08/18 [History] glipiZIDE [Glipizide] 10 mg PO BID 10/08/18 [History] hydroCHLOROthiazide [Hydrochlorothiazide] 25 mg PO DAILY 10/08/18 [History] levoFLOXacin [Levofloxacin] 500 mg PO DAILY 10/08/18 [History] risperiDONE [Risperdal] 3 mg PO HS 10/08/18 [History] Allergy/AdvReac Type Severity Reaction Status Date / Time hydrocodone [From Vicodin] AdvReac Severe Nausea Verified 10/08/18 12:59 cephalexin [From Keflex] AdvReac Vomiting Verified 10/08/18 12:59 codeine AdvReac Confusion Verified 10/08/18 12:59 morphine AdvReac Rash Verified 10/08/18 12:59 All Systems Reviewed: The remainder of the systems were reviewed and are negative Review of systems: As per HPI. - Constitutional Constitutional: no fever(s) - Cardiovascular Cardiovascular: no chest pain - Respiratory Respiratory: no dyspnea Physical Exam - Constitutional Vitals: Temp Pulse Resp BP Pulse Ox 98.1 F 78 15 105/72 96 10/08/18 07:09 10/08/18 07:09 10/08/18 07:09 10/08/18 07:09 10/08/18 07:09 Exam: Constitutional: Alert and oriented male, no acute distress noted, well nourished Vascular: 2/4 PT/DP pulse noted bilaterally, cap refill less than 3 seconds to all digits, no pain with calf squeeze bilaterally, skin warm from tibia to toes Neurological: Absent protective sensation, abnormal prioproception, abnormal dorsal reflex Dermatological: Antonio stage IV ulcer noted left lateral distal extremity measuring 5 x 3.7 cm and tendon exposed. Wound base with necrotic tissue. Minimal serosangineous drainage. Healing ulcer noted to left lateral calcaneus, wound base granular and pink and edges pink with scaly skin around area. No lympangitis, no cellulitis, no drainage. Small scabbed area noted to left plantar asect of proximal midfoot that is healing. Antonio stage II ulcer noted right lateral calncaneus with granular and fibrin tissue noted to wound base. Some erythema is noted around the ulcer. Minimal serosangineous drainage. No od or. No lympangitis. Musculoskeletal: 4/5 muscle strength, normal tone Results - Labs Result Diagrams: 10/08/18 05:07 10/08/18 05:07 Labs: Abnormal lab results RBC 3.67 M/mcL (4.19-5.50) L 10/08/18 05:07 Hgb 11.5 g/dL (12.9-16.9) L 10/08/18 05:07 Hct 35.3 % (37.5-50.1) L 10/08/18 05:07 Plt Count 119 K/mcL (140-400) L 10/08/18 05:07 ESR 66 mm/hr (0-10) H 10/08/18 05:07 BUN 23 mg/dL (6-20) H 10/07/18 15:22 28 (6-26) H 10/07/18 15:22 Glucose 130 mg/dL (70-105) H 10/07/18 15:22 H & H 10/07/18 10/08/18 Range/Units 15:22 05:07 Hgb 12.7 L 11.5 L (12.9-16.9) g/dL Hct 37.5 35.3 L (37.5-50.1) % All other labs normal. Consult Discharge Plan - Plan Referrals: Froylan Guido MD [Primary Care Provider] -
[2018-10-08 11:03] LABS: C-Reactive Protein 22 mg/L (Less than 10)
--- NOTE | 2018-10-08 11:49 | Internal Med Progress Note ---
Hospitalist Progress Note - Encounter Date of Encounter: 10/08/18 Time of Encounter: 09:35 - Subjective Interval History: Patient is awake and alert. Lying down in bed. He reports that he has continued to have pain in his left leg especially overnight. The current pain medication regimen has been helping him but he does need more frequent dosing at night. Denies any fevers or chills. No nausea or vomiting. He did develop some tremors from alcohol withdrawal earlier today but feels better now. - Exam Vitals: Temp Pulse Resp BP Pulse Ox 97.9 F 75 15 116/74 94 10/08/18 10:04 10/08/18 10:04 10/08/18 10:04 10/08/18 10:04 10/08/18 10:04 Exam: General: Patient is alert, mild distress, oriented x 3 ENT: Mucous membranes moist Respiratory: Good respiratory effort. Normal breath sounds. No wheezing or crackles. Cardiovascular: Regular rate and rhythm. s1 and s2 normal No clicks, rubs, gallops, or murmurs. No pedal edema Abdomen: Abdomen is soft, nontender. Bowel sounds are present Musculoskeletal: Spontaneously moving all extremities Skin: Ulcers on both feet and in the left lower lateral leg bandaged. Neuro: Alert oriented x 3 normal cranial nerves, no focal deficits - Assessment and Plan (1) Leg wound, left Current Visit: Yes Status: Acute Assessment and Plan: Acute left lower extremity wound infection with tenosynovitis involving the peroneal compartment. No signs of osteomyelitis. Continue IV antibiotics. Prior wound cultures were positive for multidrug resistant Proteus. As such patient has been on ertapenem in addition to vancomycin and Flagyl. Podiatry consulted. Plan to take patient to the OR tomorrow. Moderate risk for complications. (2) Diabetes mellitus Current Visit: Yes Status: Chronic Assessment and Plan: Blood sugars are well controlled. Continue current insulin regimen. (3) COPD (chronic obstructive pulmonary disease) Current Visit: Yes Status: Chronic Assessment and Plan: Not in acute exacerbation. Continue bronchodilators as needed. (4) Heel ulcer Current Visit: Yes Status: Acute Assessment and Plan: Continue follow-up with podiatry. (5) HTN (hypertension) Current Visit: Yes Status: Chronic Assessment and Plan: Blood pressure is well controlled (6) Tobacco abuse Current Visit: Yes Status: Acute Assessment and Plan: Continue nicotine patch. (7) Alcohol abuse Current Visit: Yes Status: Chronic Assessment and Plan: Continue to monitor for withdrawal symptoms. On CIWA protocol - Time Spent with Patient Total time spent is greater than 50% in coordination of care (as documented) at patient's floor/unit and/or counseling patient: Internal Medicine: Result - Labs CBC & Chem 7: 10/08/18 05:07 10/08/18 05:07 Labs: Short CBC 10/07/18 10/08/18 Range/Units 15:22 05:07 WBC 5.7 4.9 (4.3-11.1) K/mcL Hgb 12.7 L 11.5 L (12.9-16.9) g/dL Hct 37.5 35.3 L (37.5-50.1) % Plt Count 123 L 119 L (140-400) K/mcL Neutrophils # 3.3 3.3 (1.6-8.9) K/mcL BMP 10/07/18 10/08/18 15:22 05:07 Sodium 136 137 Potassium 4.7 4.4 Chloride 102 104 Carbon Dioxide 26 25 BUN 23 H 20 Creatinine 0.82 0.79 Glucose 130 H 97 Calcium 9.3 9.0 - Impressions Impressions Foreign Body Localization X-Ray 10/07/18 00:00 IMPRESSION: No evidence of metallic foreign body within the orbits. D/ / Flash Pinon MD / Flash Pinon MD Interpreting Provider: Flash Pinon MD Lower Extremity MRI 10/07/18 00:00 IMPRESSION: 1. Wound on the lateral aspect of the distal left leg measures 3 x 2.7 cm exposing the peroneus longus and brevis tendons. 2. Extensive myositis throughout the peroneal compartment with tenosynovitis of the peroneal tendons in the retromalleolar region. 3. Extensive myositis in the anterior compartment throughout the leg. 4. Mild myositis in the posterior tibialis and flexor hallucis longus musculature of the mid-distal leg. 5. No soft tissue abscess. 6. No changes of acute osteomyelitis. D/ /07/2018 21:40:33 Joe Seals MD / heaven Interpreting Provider: Joe Seals MD Tibia/Fibula X-Ray 10/07/18 15:06 IMPRESSION: Deep soft tissue ulcer along the distal lateral calf, without radiographic evidence of osteomyelitis. A bone scan or MRI would be a more sensitive exam. D/ / Sinan Arredondo MD / Sinan Arrdeondo MD Interpreting Provider: Sinan Arredondo MD Ankle MRI 10/07/18 17:40 IMPRESSION: 1. Wound on the lateral aspect of the distal left leg measures 3 x 2.7 cm exposing the peroneus longus and brevis tendons. 2. Extensive myositis throughout the peroneal compartment with tenosynovitis of the peroneal tendons in the retromalleolar region. 3. Extensive myositis in the anterior compartment throughout the leg. 4. Mild myositis in the posterior tibialis and flexor hallucis longus musculature of the mid-distal leg. 5. No soft tissue abscess. 6. No changes of acute osteomyelitis. 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 insulin use: without fpc use Diabetes mellitus complication status: with skin complications Diabetes mellitus complication detail: with foot ulcer Qualified Code(s): E11.621 - Type 2 diabetes mellitus with foot ulcer; L97.509 - Non- pressure chronic ulcer of other part of unspecified foot with unspecified severity (3) COPD (chronic obstructive pulmonary disease) Qualifiers: COPD type: unspecified COPD Qualified Code(s): J44.9 - Chronic obstructive pulmonary disease, unspecified (4) Heel ulcer Qualifiers: Laterality: unspecified laterality Non-pressure ulcer stage: with fat layer exposed Qualified Code(s): L97.402 - Non-pressure chronic ulcer of unspecified heel and midfoot with fat layer exposed (5) HTN (hypertension) Qualifiers: Hypertension type: essential hypertension Qualified Code(s): I10 - Essential (primary) hypertension
[2018-10-08] MEDS ORDERED: Ipratropium/Albuterol Neb 3 ML IH PRN (12:02)
[2018-10-08] MEDS ORDERED: OXYCODONE Oral CONC 10 MG/0.5 ML ORAL.SYG SL PRN (12:05)
--- NOTE | 2018-10-08 12:52 | Infectious Disease Consult ---
Infectious Disease-Consult - Encounter Date/Time Date of Encounter: 10/08/18 Time of Encounter: 12:28 - Data of Consult Patient: known to practice within the last 3 years Reason for consult: Left ankle infection Consult date: 10/08/18 Requesting Physician: Barbie Tellez Primary Care Provider: Froylan Guido MD - HPI HPI: Mr. Parish is a 48 year old male with a past medical history of knee, diabetes, GERD, hypertension, chronic diabetic foot ulcers bilateral feet. The patient was admitted to the hospital 10/07/18 for left ankle infection. We are consulted 10/08/18 for antibiotic recommendations for left ankle infection. Briefly, the patient is a 48-year-old male, known to the infectious disease service as we have been consulted on this case in the past at which time he had bilateral foot ulcer infections. He completed a prolonged course of IV Zosyn and has continued to follow-up in the wound clinic with Dr. Mancia. He tells me that his bilateral heel ulcers started back in February. He states the left heel ulcer is nearly healed, but the right one persists. He states the left ankle ulceration developed 2-3 months ago after had a wound VAC to the left heel and he is not sure if the tubing rubbed or how exactly it happened. He has been following with Dr. Mancia in the wound clinic and was advised to come to the ER yesterday when he went for a nurse visit and there was concern for worsening infection. He states he does not know if it was more red or had any drainage, but eats it did appear somewhat black. Upon arrival to the ER, he was afebrile hemodynamically stable. CBC, lactic acid, and renal function were normal. Tib- fib x-ray was negative for abscess or osteoarthritis. MRI of the left lower extremity showed the wound on the lateral aspect of the distal left leg exposing the peroneal longus and previous tendons with extensive myositis throughout the peroneal compartment with tenosynovitis of the peroneal tendons in the retromalleolar region. There is extensive myositis in the anterior compartment throughout the left leg with mild myositis in the posterior tibialis and flexor hallucis longus musculature of the mid to distal leg. There is no soft tissue abscess or osteomyelitis. Blood cultures were obtained x 2 sets and are pending. He was started on Vanc, Zosyn, and Flagyl and was admitted to the hospital for further evaluation. Since admission, the patient has been afebrile and hemodynamically stable. He has no SIRS criteria. ESR is elevated at 66, CRP 22. Podiatry was consulted and is planning operative debridement tomorrow. Previous wound cultures obtained 10/03/18 are positive for P. mirabilis, sensitive for carbapenems, Zosyn, Gentamicin, and Tobramycin.Currently, the patient is on IV Ertapenem, IV Vancomycin, and Flagyl. We have been consulted to evaluate and make further recommendations. During my exam today, the patient endorses a history as stated above. He denies any fevers, chills, rigors. Denies headache or neck pain. Denies congestion, earache, or sore throat. Denies chest pain, shortness of breath, or cough. Denies nausea, vomiting, diarrhea, constipation. Denies abdominal pain or urinary complaints. Denies oral thrush or skin rashes. States he was on oral antibiotics for about a week prior to admission, but he is unsure which ones. According to the records, it appears she was on oral clindamycin and Levaquin. He reports chronic pain to the bilateral lower extremities that as a baseline. The patient was at home with family. He does not work outside the home. He drinks 24-30 beers per day. Reports a remote history of illicit drug use, but nothing in the past 20 years. States he smokes 1-1/2-2 packs of cigarettes per day. Denies recent travel. Denies pet or animal exposures. Denies chronic infectious diseases. - ROS Review of Systems: All systems reviewed and no additional remarkable complaints except as stated. - Results CBC & Chem 7: 10/09/18 03:06 10/09/18 03:06 - Exam Vitals: Temp Pulse Resp BP Pulse Ox 97.9 F 75 15 116/74 94 10/08/18 10:04 10/08/18 10:04 10/08/18 10:04 10/08/18 10:04 10/08/18 10:04 Exam: Head: Atraumatic, normal inspection, normocephalic. Eye: EOMI, PERRLA, no scleral icterus noted. ENT: Mucous membranes moist. No odontogenic infection noted. Neck: Normal inspection, no meningismus. Respiratory: Clear to auscultation. No rales, respiratory distress, rhonchi, or wheezes noted. Cardiovascular: Regular rate and rhythm, S1 and S2 audible. No murmurs, rubs, or gallops. GI: Soft, obese, normal bowel sounds. Extremities: Venous stasis dermatitis noted bilateral lower extremities. 1+ delilah ma noted to the bilateral lower extremities. Bilateral feet and ankle dressings are clean, dry, and intact. Back: Normal inspection. No vertebral tenderness noted. Neurological: Alert, oriented 3, no focal deficits. Psychiatric: normal affect, normal mood. Skin: Dry, intact, warm. Normal color. No rashes. Albuterol Sulfate [Albuterol Inhaler] 2 puff IH Q4HR PRN 04/06/16 [History] [place]-3/Dha/Epa/Fish Oil [Fish Oil 1,000 mg Softgel] 2,000 mg PO BID 04/06/16 [History] Omeprazole [PriLOSEC] 40 mg PO DAILY 04/06/16 [History] Loratadine [Claritin] 10 mg PO DAILY 12/21/16 [History] Pregabalin [Lyrica] 150 mg PO TID 12/21/16 [History] diazePAM [Valium] 10 mg PO 2-3XD PRN 09/05/17 [History] Atorvastatin [Lipitor] 40 mg PO HS 03/13/18 [History] Collagenase Oint [Santyl] 1 appl TP BID 03/13/18 [History] Fluticasone Propionate Nasal [Flonase] 1 spr NS BID 03/13/18 [History] risperiDONE [Risperdal] 2 mg PO QAM 03/13/18 [History] Clindamycin HCl 300 mg PO QID 10/08/18 [History] Ibuprofen [Motrin] 600 mg PO BID PRN 10/08/18 [History] Meloxicam [Mobic] 15 mg PO DAILY 10/08/18 [History] Metformin HCl 500 mg PO BIDWM 10/08/18 [History] Metoprolol Succinate [Toprol Xl] 100 mg PO BID 10/08/18 [History] Multivitamin [One Daily] 1 tab PO QAM 10/08/18 [History] Quinapril HCl [Accupril] 40 mg PO DAILY 10/08/18 [History] Sennosides/Docusate Sodium [Senna Plus] 1 tab PO DAILY PRN 10/08/18 [History] glipiZIDE [Glipizide] 10 mg PO BID 10/08/18 [History] hydroCHLOROthiazide [Hydrochlorothiazide] 25 mg PO DAILY 10/08/18 [History] levoFLOXacin [Levofloxacin] 500 mg PO DAILY 10/08/18 [History] risperiDONE [Risperdal] 3 mg PO HS 10/08/18 [History] Allergy/AdvReac Type Severity Reaction Status Date / Time hydrocodone [From Vicodin] AdvReac Severe Nausea Verified 10/08/18 12:59 cephalexin [From Keflex] AdvReac Vomiting Verified 10/08/18 12:59 codeine AdvReac Confusion Verified 10/08/18 12:59 morphine AdvReac Rash Verified 10/08/18 12:59 - Assessment and Plan (1) Leg wound, left Current Visit: Yes Status: Acute Location: Left lateral ankle. Etiology: Unclear. Patient states that he noticed a blister there are 2-3 months ago and thinks it might be related to wound VAC tubing from his left heel dressing. Has been following with wound clinic 2 times a week and had regression of the wounds and was advised to come to the ER for evaluation. MRI of the left lower extremity shows findings consistent with myositis and tenosynovitis, but no osteomyelitis or abscess. ESR 66, CRP 22. Previous wound cultures obtained 10/03/18 were positive for Proteus mirabilis. Podiatry consult it. Planning surgical debridement tomorrow. Currently on ertapenem, Flagyl, and vancomycin. Qualifiers: Encounter type: initial encounter Qualified Code(s): S81.802A - Unspecified open wound, left lower leg, initial encounter SNOMED Code(s): 740050606, 461757592 (2) Foot ulcer, limited to breakdown of skin Current Visit: No Status: Acute Location: Left heel. Ongoing since February. Clinically does not appear infected. Podiatry consult and following. Qualifiers: Laterality: left Qualified Code(s): L97.521 - Non-pressure chronic ulcer of other part of left foot limited to breakdown of skin SNOMED Code(s): 95502477, 63581329, 818143165 (3) Foot ulcer with fat layer exposed Current Visit: No Status: Acute Location: Right heel. Chronic and ongoing since February. Clinically does not appear infected. Podiatry consult and following. Qualifiers: Laterality: right Qualified Code(s): L97.512 - Non-pressure chronic ulcer of other part of right foot with fat layer exposed SNOMED Code(s): 25374386, 87667342 (4) Morbid obesity Current Visit: No Status: Chronic SNOMED Code(s): 046419825 (5) Diabetes mellitus Current Visit: Yes Status: Chronic Recommend aggressive glucose monitoring and control to promote wound healing and prevent reinfection. Management per the primary team. Qualifiers: Diabetes mellitus type: type 2 Diabetes mellitus terminologist insulin use: without terminologist use Diabetes mellitus complication status: with skin complications Diabetes mellitus complication detail: with foot ulcer Qualified Code(s): E11.621 - Type 2 diabetes mellitus with foot ulcer; L97.509 - Non-pressure chronic ulcer of other part of unspecified foot with unspecified severity SNOMED Code(s): 90028198 (6) HTN (hypertension) Current Visit: Yes Status: Chronic Qualifiers: Hypertension type: essential hypertension Qualified Code(s): I10 - Essential (primary) hypertension SNOMED Code(s): 95164886 (7) Alcohol abuse Current Visit: Yes Status: Chronic The patient states he drinks 24-30 beers per day. CIWA protocol per the primary team. SNOMED Code(s): 24129716 (8) COPD (chronic obstructive pulmonary disease) Current Visit: Yes Status: Chronic Qualifiers: COPD type: unspecified COPD Qualified Code(s): J44.9 - Chronic obstructive pulmonary disease, unspecified SNOMED Code(s): 76246312 (9) Tobacco abuse Current Visit: No Status: Chronic NRT per the primary team. SNOMED Code(s): 080508652 - Recommendations Recommendations: Await intraoperative findings and cultures. Wound care per the podiatry team. No sepsis criteria and the patient does not appear toxic. Discontinue antibiotics for now until cultures can be obtained intra-op. Postop, restart IV vancomycin, pharmacy to dose, goal trough approximately 15 and Zosyn 3.375 g IV every 8 hours. Duration of treatment depends on the clinical picture. Monitor renal function for drug toxicity and dose adjust antibiotics. Contact precautions per hospital policy for multidrug resistant Proteus. 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 Psychiatric history: anxiety, depression - Past Surgical History Surgical History: orthopedic, other, other Additional surgical history: graft placement to left plantar foot X5 - Social History Smoking Status: Current every day smoker Smokeless Tobacco Status: No Alcohol use: heavy Drug use: none - Family History Mother Adopted: No Living Status: Still Living Hx Family Cardiac Disorders: Yes Hx Family Respiratory Disorders: Yes Hx Family Cancer: No Hx Family GI Disorders: No Hx Family Endocrine Disorder: No Hx Family Neuromuscular Disorders: No Hx Family Neurologic Disorders: No Hx Family HEENT Disorders: No Hx Family Autoimmune Disorders: No Father Adopted: No Family Member Ethnicity: Non- Living Status: Hx Family Cardiac Disorders: Yes Hx Family Respiratory Disorders: Yes Hx Family Cancer: Yes Hx Family GI Disorders: No Hx Family Endocrine Disorder: Yes Hx Family Neuromuscular Disorders: No Hx Family Neurologic Disorders: No Hx Family HEENT Disorders: No Hx Family Autoimmune Disorders: No Consult Discharge Plan - Plan Referrals: Froylan Guido MD [Primary Care Provider] - - Attending Attestation I have personally performed a face to face evaluation on this patient. I have reviewed and agree with the care plan. History and Exam by me shows: Assessment and plan: 1.Leg wound on the left with no osteomyelitis or abscess on the MRI findings consistent with myositis and 15 no synovitis. Cultures from 10/03/2018 positive for Proteus mirabilis 2.Foot ulcer left heel ongoing since February treated by me for 11 weeks with Zosyn. Causative organism was Pseudomonas fluorescence, enterococcus avium and corynebacterium species 3.Diabetes mellitus type 2 4.Hypertension 5.Morbid obesity 6.Tobacco abuse 7.EtOH abuse drinks about 24 cans of beer daily Recommendations: I will stop all antibiotics until we see what Intra-Op cultures reveal Post op we will start empiric vancomycin and ertapenem Patient might need plastic surgery to evaluate Patient really has a nicotine patch on On CIWA protocol and he's doing fine blood sugar adequately controlled
[2018-10-08] MEDS ORDERED: Aminoglycoside Consult 1 EACH MC ONE (16:59)
--- NOTE | 2018-10-08 18:02 | Anesthesia Evaluation PreOp ---
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 Heel prep. for wound graft, L toe I and D) Alcohol Use: heavy Drug use: none Medications and Allergies Albuterol Sulfate [Albuterol Inhaler] 2 puff IH Q4HR PRN 04/06/16 [History] [place]-3/Dha/Epa/Fish Oil [Fish Oil 1,000 mg Softgel] 2,000 mg PO BID 04/06/16 [History] Omeprazole [PriLOSEC] 40 mg PO DAILY 04/06/16 [History] Loratadine [Claritin] 10 mg PO DAILY 12/21/16 [History] Pregabalin [Lyrica] 150 mg PO TID 12/21/16 [History] diazePAM [Valium] 10 mg PO 2-3XD PRN 09/05/17 [History] Atorvastatin [Lipitor] 40 mg PO HS 03/13/18 [History] Collagenase Oint [Santyl] 1 appl TP BID 03/13/18 [History] Fluticasone Propionate Nasal [Flonase] 1 spr NS BID 03/13/18 [History] risperiDONE [Risperdal] 2 mg PO QAM 03/13/18 [History] Clindamycin HCl 300 mg PO QID 10/08/18 [History] Ibuprofen [Motrin] 600 mg PO BID PRN 10/08/18 [History] Meloxicam [Mobic] 15 mg PO DAILY 10/08/18 [History] Metformin HCl 500 mg PO BIDWM 10/08/18 [History] Metoprolol Succinate [Toprol Xl] 100 mg PO BID 10/08/18 [History] Multivitamin [One Daily] 1 tab PO QAM 10/08/18 [History] Quinapril HCl [Accupril] 40 mg PO DAILY 10/08/18 [History] Sennosides/Docusate Sodium [Senna Plus] 1 tab PO DAILY PRN 10/08/18 [History] glipiZIDE [Glipizide] 10 mg PO BID 10/08/18 [History] hydroCHLOROthiazide [Hydrochlorothiazide] 25 mg PO DAILY 10/08/18 [History] levoFLOXacin [Levofloxacin] 500 mg PO DAILY 10/08/18 [History] risperiDONE [Risperdal] 3 mg PO HS 10/08/18 [History] Allergy/AdvReac Type Severity Reaction Status Date / Time hydrocodone [From Vicodin] AdvReac Severe Nausea Verified 10/08/18 12:59 cephalexin [From Keflex] AdvReac Vomiting Verified 10/08/18 12:59 codeine AdvReac Confusion Verified 10/08/18 12:59 morphine AdvReac Rash Verified 10/08/18 12:59 - Meds/Allergy Pre-op Review Medications Reviewed: Yes Allergies Reviewed: Yes Beta Blockers on Current Med List: Yes Anesthesia Results - Labs 10/08/18 05:07 10/08/18 05:07 - Imaging EKG: report reviewed (SR) Anesthesia Exam Vital Signs/O2 Sat, Most Current Temp Pulse Resp BP Pulse Ox 98.1 F 78 15 105/68 95 10/08/18 14:27 10/08/18 14:27 10/08/18 14:27 10/08/18 14:27 10/08/18 14:27 NPO (# of Hours): > 8 hrs Pain Scale: 0 Pain Scale Used: Numeric (1 - 10) - HEENT Pupil (Motor): Pupils equal, EOMI Mallampati: III Teeth: Poor dentition Oral Opening: Greater than 3 - CHILLER OPERATOR LOC: Oriented CHILLER OPERATOR Motor: Normal RUE, Normal LUE, Normal RLE, Normal LLE, Normal Face CHILLER OPERATOR Sensory: Normal: RUE, LUE, RLE, LLE, Face - Cardiac Rhythm: Regular Murmur: None JVD: No Carotid Bruit: No - Pulmonary Breath Sounds: bilateral Clear Respiratory Effort: Symmetrical Anesthesia Assess/Plan ASA Score: 3 Level of consciousness: Cooperative Anesthetic Plan: General Autologous Blood: Yes Monitoring Plan: Standard Monitors Recovery Plan: PACU
[2018-10-08] MEDS: Fluticasone Propionate Nasal 50 MCG/SPRAY BOTTLE NS SCH (20:51)
[2018-10-08] MEDS: Pregabalin 75 MG CAPSULE PO SCH (20:51)
[2018-10-08] MEDS ORDERED: RisperiDAL 3 MG TABLET PO SCH (21:00)
[2018-10-09 03:22] LABS: Basophils % 0.6 %; Eosinophils # 0.2 K/mcL (0.0-0.6); Eosinophils % 2.8 %; Hematocrit 34.9 % (37.5-50.1); Hemoglobin 11.5 g/dL (12.9-16.9); Immature Granulocytes % 0.4 % (0-4); Lymphocytes # 1.4 K/mcL (0.6-4.6); Lymphocytes % 25.6 %; Mean Corpuscular Hemoglobin 31.6 pg (28.0-33.3); Mean Corpuscular Volume 95.9 fL (83.0-100.0); Mean Platelet Volume 9.3 fL (9.4-12.4); Monocytes # 0.7 K/mcL (0.0-1.3); Monocytes % 13.8 %; Neutrophils # 3.1 K/mcL (1.6-8.9); Platelet Count 107 K/mcL (140-400); Red Blood Count 3.64 M/mcL (4.19-5.50); Red Cell Distribution Width 13.3 % (11.5-14.5); Segmented Neutrophils % 56.8 %
[2018-10-09 03:39] LABS: BUN/Creatinine Ratio 18 (6-26); Blood Urea Nitrogen 12 mg/dL (6-20); Calcium 9.2 mg/dL (8.6-10.3); Carbon Dioxide 27 mEq/L (23-29); Chloride 104 mEq/L (98-107); Glucose 121 mg/dL (70-105); Osmolality,Calculated 283 (280-300); Potassium 4.3 mEq/L (3.5-5.1); Sodium 136 mEq/L (136-145); eGFR For Non-African Americans > 60 (> 60)
[2018-10-09] MEDS: *HR* Heparin 5,000 UNIT/ML VIAL SQ SCH ×2 (05:32→17:32)
[2018-10-09] MEDS: OXYCODONE Oral CONC 10 MG/0.5 ML ORAL.SYG SL PRN ×3 (05:38→17:30)
[2018-10-09] MEDS ORDERED: Vancomycin 1,000 MG, Sodium Chloride IRRigation 1,000 ML IR ONE ×2 (06:00→14:46)
[2018-10-09] MEDS: Insulin LISPRO 300 UNITS/3 ML VIAL SQ SCH ×4 (08:35→21:12)
[2018-10-09] MEDS: Nicotine 21 MG PATCH.TD24 TD SCH (08:49)
[2018-10-09] MEDS: Folic Acid 1 MG TABLET PO SCH (08:50)
[2018-10-09] MEDS: Thiamine (B-1) 100 MG TABLET PO SCH (08:50)
[2018-10-09] MEDS: Pregabalin 75 MG CAPSULE PO SCH ×3 (08:50→21:11)
[2018-10-09] MEDS: Metoprolol XL (24 HR) Succ 50 MG TAB.ER.24H PO SCH ×2 (08:50→21:11)
[2018-10-09] MEDS: Fluticasone Propionate Nasal 50 MCG/SPRAY BOTTLE NS SCH ×2 (08:54→21:10)
[2018-10-09] MEDS ORDERED: hydroCHLOROthiazide 25 MG TABLET PO SCH (09:00)
[2018-10-09] MEDS ORDERED: risperiDONE 1 MG TABLET PO SCH (09:00)
[2018-10-09] MEDS ORDERED: Lisinopril 20 MG TABLET PO SCH (09:00)
--- NOTE | 2018-10-09 10:04 | Infectious Disease Progress No ---
ID Progress Note Date of Encounter: 10/09/18 Time of Encounter: 09:00 - Subjective Subjective: Patient seen and examined. No acute events noted overnight. Patient states overall he feels well. Reports pain side of the left ankle ulceration. Denies fevers, chills, rigors. Denies chest pain, shortness of breath, or cough. Denies nausea, vomiting, diarrhea, or constipation. Denies abdominal pain or urinary complaints. States his appetite is good, but he does not like the food here. Denies oral thrush or new skin lesions. - Objective CBC & Chem 7: 10/09/18 03:06 10/09/18 03:06 - Exam Vitals: Temp Pulse Resp BP Pulse Ox 98.2 F 72 12 106/68 94 10/09/18 06:29 10/09/18 06:29 10/09/18 06:29 10/09/18 06:29 10/09/18 06:29 Exam: Head: Atraumatic, normal inspection, normocephalic. Eye: EOMI, PERRLA, no scleral icterus noted. ENT: Mucous membranes moist. No odontogenic infection noted. Neck: Normal inspection, no meningismus. Respiratory: Clear to auscultation. No rales, respiratory distress, rhonchi, or wheezes noted. Cardiovascular: Regular rate and rhythm, S1 and S2 audible. No murmurs, rubs, or gallops. GI: Soft, obese, normal bowel sounds. Extremities: Venous stasis dermatitis noted bilateral lower extremities. 1+ edema noted to the bilateral lower extremities. Bilateral feet and ankle dressings are clean, dry, and intact. Back: Normal inspection. No vertebral tenderness noted. Neurological: Alert, oriented 3, no focal deficits. Psychiatric: normal affect, normal mood. Skin: Dry, intact, warm. Normal color. No rashes. - Assessment and Plan (1) Leg wound, left Current Visit: Yes Status: Acute Location: Left lateral ankle. Etiology: Unclear. Patient states that he noticed a blister there are 2-3 months ago and thinks it might be related to wound VAC tubing from his left heel dressing. Has been following with wound clinic 2 times a week and had regression of the wounds and was advised to come to the ER for evaluation. MRI of the left lower extremity shows findings consistent with myositis and tenosynovitis, but no osteomyelitis or abscess. ESR 66, CRP 22. Previous wound cultures obtained 10/03/18 were positive for Proteus mirabilis. Podiatry consult it. Planning surgical debridement later today. Antibiotics currently on hold. Qualifiers: Encounter type: initial encounter Qualified Code(s): S81.802A - Unspecified open wound, left lower leg, initial encounter SNOMED Code(s): 565957087, 667683440 (2) Foot ulcer, limited to breakdown of skin Current Visit: No Status: Acute Location: Left heel. Ongoing since February. Clinically does not appear infected. Podiatry consult and following. Qualifiers: Laterality: left Qualified Code(s): L97.521 - Non-pressure chronic ulcer of other part of left foot limited to breakdown of skin SNOMED Code(s): 25195984, 17585215, 990392961 (3) Foot ulcer with fat layer exposed Current Visit: No Status: Acute Location: Right heel. Chronic and ongoing since February. Clinically does not appear infected. Podiatry consult and following. Qualifiers: Laterality: right Qualified Code(s): L97.512 - Non-pressure chronic ulcer of other part of right foot with fat layer exposed SNOMED Code(s): 37826554, 07373091 (4) Morbid obesity Current Visit: No Status: Chronic SNOMED Code(s): 054467386 (5) Diabetes mellitus Current Visit: Yes Status: Chronic Recommend aggressive glucose monitoring and control to promote wound healing and prevent reinfection. Management per the primary team. 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 bale stacker use Diabetes mellitus complication status: with skin complications Diabetes mellitus complication detail: with foot ulcer Qualified Code(s): E11.621 - Type 2 diabetes mellitus with foot ulcer; L97.509 - Non-pressure chronic ulcer of other part of unspecified foot with unspecified severity SNOMED Code(s): 23841475 (6) HTN (hypertension) Current Visit: Yes Status: Chronic Qualifiers: Hypertension type: essential hypertension Qualified Code(s): I10 - Essential (primary) hypertension SNOMED Code(s): 55601950 (7) Alcohol abuse Current Visit: Yes Status: Chronic The patient states he drinks 24-30 beers per day. CIWA protocol per the primary team. SNOMED Code(s): 81308412 (8) COPD (chronic obstructive pulmonary disease) Current Visit: Yes Status: Chronic Qualifiers: COPD type: unspecified COPD Qualified Code(s): J44.9 - Chronic obstructive pulmonary disease, unspecified SNOMED Code(s): 75021073 (9) Tobacco abuse Current Visit: No Status: Chronic NRT per the primary team. SNOMED Code(s): 196639631 - Recommendations Recommendations: Await intraoperative findings and cultures. Wound care per the podiatry team. No sepsis criteria and the patient does not appear toxic. Continue to hold antibiotics until after surgery. Postop, restart IV vancomycin, pharmacy to dose, goal trough approximately 15 and Zosyn 3.375 g IV every 8 hours. Duration of treatment depends on the clinical picture. Monitor renal function for drug toxicity and dose adjust antibiotics. Contact precautions per hospital policy for multidrug resistant Proteus. Consult Discharge Plan - Plan Referrals: Froylan Guido MD [Primary Care Provider] - - Attending Attestation I have personally performed a face to face evaluation on this patient. I have reviewed and agree with the care plan. History and Exam by me shows: Assessment and plan: 1.Leg wound on the left with no osteomyelitis or abscess on the MRI findings consistent with myositis and 15 no synovitis. Cultures from 10/03/2018 positive for Proteus mirabilis 2.Foot ulcer left heel ongoing since February treated by me for 11 weeks with Zosyn. Causative organism was Pseudomonas fluorescence, enterococcus avium and corynebacterium species 3.Diabetes mellitus type 2 4.Hypertension 5.Morbid obesity 6.Tobacco abuse 7.EtOH abuse drinks about 24 cans of beer daily
[2018-10-09] MEDS ORDERED: *HR* Rocuronium Bromide 50 MG/5 ML VIAL ONE (10:25)
[2018-10-09] MEDS ORDERED: *HR* Midazolam HCl 2 MG/2 ML VIAL ONE (10:25)
[2018-10-09] MEDS ORDERED: *HR* FentaNYL (PF) 100 MCG/2 ML VIAL ONE (10:25)
[2018-10-09] MEDS ORDERED: Ondansetron 4 MG/2 ML VIAL ONE (10:25)
[2018-10-09] MEDS ORDERED: *HR* Succinylcholine 200 MG/10 ML VIAL IVP ONE (10:25)
[2018-10-09] MEDS ORDERED: Lidocaine -MPF 2% 2 ML VIAL ONE (10:25)
[2018-10-09] MEDS ORDERED: Dexamethasone 4 MG/ML VIAL ONE (10:25)
[2018-10-09] MEDS ORDERED: *HR* Propofol 200 MG/20 ML VIAL IVP ONE (10:26)
[2018-10-09] MEDS ORDERED: Bupivacaine/EPI 1:200k 0.25%PF 10 ML VIAL INFILT ONE (10:57)
--- NOTE | 2018-10-09 12:54 | Operative Note ---
Date of procedure: 10/09/18 Pre-op diagnosis: bilateral heel ulcerations, left lateral leg ulceration Post-op diagnosis: same Procedure: preparation of right heel wound for graft application of graft to right heel wound excisional debridement left foot wound into subq left lateral leg wound Implants: amniox graft Complications: none Anesthesia: GETA Local Anesthetics: 0.25% Sensorcaine HCL with Epinephrine 1:200,000 SubQ (cc) Surgeon: Tomas Bower Was there an respiratory therapy assistant present: No Estimated blood loss (cc): 10 Specimen: none Condition: stable Disposition: PACU Procedure in Detail: Indications: 48-year-old diabetic alcoholic male with neuropathy and wounds on bilateral lower extremities big brought to the operating room for the above procedures after having the nature of the procedures, risks first benefits potential complications consequences of surgery and his condition discussed at length. No guarantees made as to the outcome of any procedure he understood that he could end up with an amputation of the leg. All of his questions were answered and informed consent was signed patient understood he is at risk for limb loss. It was also explained to him that he will likely need multiple procedures if his legs are even salvageable. Wound measurements are as follows: Left lateral leg 5 cm x 3.5 cm x 0.5 cm with exposed tendon and necrotic tissue left lateral heel for 0.2 cm x 1 cm x 0.3 cm and right lateral heel 4.6 cm x 3.5 cm x 0.3 cm. The right lower extremity was scrubbed prepped and draped in the usual sterile fashion no tourniquet was utilized during the entire procedure. 0.25% Marcaine with epinephrine was given into the common peroneal and posterior tibial nerve. Right foot preparation of wound bed for graft, application of graft. Attention was directed to the patient's right heel where sharp instrumentation was utilized to prepare the right foot wound for graft. At the conclusion wound base is completely granular with adequate hemostasis. There were no signs of erythema fluctuance or signs of infection. Amniotic graft was thawed and 15 blade used to fenestrate the graft and the amniox 5ipx5bm graft was applied to the right foot wound. The graft was anchored into place with lizabeth. Wound bed and graft had been sprayed with PRP. Dressing was applied and the graft was in excellent apposition to the wound bed. Excisional debridement left lateral foot wound into subcutaneous tissue. The Misonex debridement was used to excisionally debride the wound into subcutaneous tissue until the wound base was completely granular. Adequate hemostasis was present. PRP was applied. Attention was then directed to the lateral leg. Excisional debridement of left leg wound muscle/tendon. Attention was directed to the lateral aspect of the patient's left leg and a #15 blade was used to excisionally debride fibrotic and necrotic tissue from the wound which had exposed tendon and peroneal muscle. Misonex debridement wand was also utilized her remove fibronecrotic tissue from the lateral wound until a bone base was more granular. The site was flushed with normal sterile saline no fibronecrotic tissue was present at the conclusion and adequate hemostasis was present after pressure was held for a couple of minutes. PRP was applied to the wound followed by Adaptic 4 x 4 gauze Kerlix and an Ranjit wrap. Patient tolerated the anesthesia and the procedure well escorted the recovery room vital signs stable and vascular status intact to both feet. Patient will return to the floor.
[2018-10-09] MEDS ORDERED: *HR* PHENYLEPHRINE 1,000 MCG/10 ML SYRINGE IVP ONE (13:18)
[2018-10-09] MEDS ORDERED: *HR* Promethazine 25 MG/ML VIAL IVP PRN ×2 (13:19→14:46)
[2018-10-09] MEDS ORDERED: *HR* OxyCODONE Immed Rel 5 MG TABLET PO PRN (13:19)
[2018-10-09] MEDS ORDERED: *HR* HYDROmorphone (PF) 1 MG/ML SYRINGE IVP PRN (13:19)
[2018-10-09] MEDS ORDERED: Albuterol 2.5 MG/3 ML NEBULIZER IH ONE ×2 (13:19→14:46)
[2018-10-09] MEDS ORDERED: Ondansetron 4 MG/2 ML VIAL IVP ONE ×2 (13:19→14:46)
[2018-10-09] MEDS ORDERED: Lacri-Lube 3.5 GM TUBE ONE (13:51)
--- NOTE | 2018-10-09 14:37 | Anesthesia Evaluation Post Op ---
Date of Encounter: 10/09/18 Time of Encounter: 14:25 - Discharge PostOp Status: Transfer Patient to floor (Patient's vital signs have been reviewed. Patient is stable postoperatively and has adequately recovered from anesthesia. Patient is determined to have stable airway patency and respiratory function including respiratory rate and oxygen saturation. Patient has a stable heart rate, blood pressure and adequate hydration. Patients mental status is acceptable. Patients temperature is appropriate. Pain and nausea are adequately controlled.)
[2018-10-09] MEDS ORDERED: Dextrose Gel 15 GM/37.5 ML TUBE PO PRN ×2 (14:46)
[2018-10-09] MEDS ORDERED: *HR* LORazepam 2 MG/ML VIAL IVP PRN ×3 (14:46)
[2018-10-09] MEDS ORDERED: Ipratropium/Albuterol Neb 3 ML IH PRN (14:46)
[2018-10-09] MEDS ORDERED: Nicotine 2 MG GUM BC PRN (14:46)
[2018-10-09] MEDS ORDERED: Naloxone 0.4 MG/ML INJ IVP PRN (14:46)
[2018-10-09] MEDS ORDERED: *HR* Dextrose 50 % in Water (Syg) 50 ML SYRINGE IVP PRN (14:46)
[2018-10-09] MEDS ORDERED: OXYCODONE Oral CONC 10 MG/0.5 ML ORAL.SYG SL PRN (14:46)
[2018-10-09] MEDS ORDERED: D5% in Water 1,000 ML IVC PRN (14:46)
--- NOTE | 2018-10-09 16:33 | Internal Med Progress Note ---
Hospitalist Progress Note - Encounter Date of Encounter: 10/09/18 Time of Encounter: 16:00 - Subjective Interval History: Patient is a 48-year-old male past medical history significant for diabetes and chronic heel ulcer to both lower extremities who presented to the ER from wound clinic due to concerns for infection involving all started in the left lower extremity just above the lateral malleolus with an exposed tendon. Patient has returned today and is postop day 0 for preparation of bilateral wounds for graft, application of graft, removal of non-viable tissue left leg wound - Exam Vitals: Temp Pulse Resp BP Pulse Ox 98.2 F 63 18 123/80 96 10/09/18 16:01 10/09/18 16:01 10/09/18 16:01 10/09/18 16:01 10/09/18 16:01 Exam: Gen.: Nonacute distress, alert and oriented 3 ENT: Mucosal membranes moist Respiratory: Lungs are clear to auscultation bilaterally without any wheezing rhonchi or rales Cardiovascular: Normal S1 and S2 regular rate rhythm no murmurs rubs or gallops Abdomen: Soft, nontender and nondistended with positive bowel sounds Extremities: No lower extremity edema Skin: Normal color - Assessment and Plan (1) Ulcer of right heel and midfoot with fat layer exposed Current Visit: Yes Status: Acute Assessment and Plan: Patient noted to have stage II ulcer noted right lateral calncaneus with granular and fibrin tissue noted to wound base. Patient postop day 0 for preparation of bilateral wounds for graft, application of graft, removal of non-viable tissue left leg wound Patient infectious disease following with recommendations for IV antibiotics with IV vancomycin and IV Zosyn (2) Leg wound, left Current Visit: Yes Status: Acute Assessment and Plan: Podiatry following and patient noted to have documented stage IV ulcer noted left lateral distal extremity measuring 5 x 3.7 cm and tendon exposed with necrotic tissue at wound base. Final wound cultures from 10/03/2018 Proteus mirabilis MRI showed evidence of a wound on the lateral aspect of the distal left leg measures 3 x 2.7 cm exposing the peroneus longus and brevis tendons in adddition to extensive myositis throughout the peroneal compartment with tenosynovitis of the peroneal tendons in the retromalleolar region. Patient postop day 0 for preparation of bilateral wounds for graft, application of graft, removal of non-viable tissue left leg wound (3) Diabetes mellitus Current Visit: Yes Status: Chronic Assessment and Plan: Blood sugars are well controlled. Continue current insulin regimen. (4) HTN (hypertension) Current Visit: Yes Status: Chronic Assessment and Plan: Continue home dose of hydrochlorothiazide, lisinopril and metoprolol (5) COPD (chronic obstructive pulmonary disease) Current Visit: Yes Status: Chronic Assessment and Plan: Not in acute exacerbation. Continue bronchodilators as needed. (6) Alcohol abuse Current Visit: Yes Status: Chronic Assessment and Plan: Continue to monitor for withdrawal symptoms. On CIWA protocol (7) Tobacco abuse Current Visit: Yes Status: Acute Assessment and Plan: Continue nicotine patch. DVT Prophylaxis: Subcutaneous heparin - Time Spent with Patient Total time spent is greater than 50% in coordination of care (as documented) at patient's floor/unit and/or counseling patient: Internal Medicine: Result - Labs CBC & Chem 7: 10/09/18 03:06 10/09/18 03:06 Labs: Short CBC 10/09/18 Range/Units 03:06 WBC 5.4 (4.3-11.1) K/mcL Hgb 11.5 L (12.9-16.9) g/dL Hct 34.9 L (37.5-50.1) % Plt Count 107 L (140-400) K/mcL Neutrophils # 3.1 (1.6-8.9) K/mcL BMP 10/09/18 03:06 Sodium 136 Potassium 4.3 Chloride 104 Carbon Dioxide 27 BUN 12 Creatinine 0.68 L Glucose 121 H Calcium 9.2 - Impressions Impressions Lower Extremity MRI 10/07/18 00:00 IMPRESSION: 1. Wound on the lateral aspect of the distal left leg measures 3 x 2.7 cm exposing the peroneus longus and brevis tendons. 2. Extensive myositis throughout the peroneal compartment with tenosynovitis of the peroneal tendons in the retromalleolar region. 3. Extensive myositis in the anterior compartment throughout the leg. 4. Mild myositis in the posterior tibialis and flexor hallucis longus musculature of the mid-distal leg. 5. No soft tissue abscess. 6. No changes of acute osteomyelitis. D/ / 10/07/2018 21:40:33 Joe Seals MD / [facility] Interpreting Provider: Joe Seals MD Ankle MRI 10/07/18 17:40 IMPRESSION: 1. Wound on the lateral aspect of the distal left leg measures 3 x 2.7 cm exposing the peroneus longus and brevis tendons. 2. Extensive myositis throughout the peroneal compartment with tenosynovitis of the peroneal tendons in the retromalleolar region. 3. Extensive myositis in the anterior compartment throughout the leg. 4. Mild myositis in the posterior tibialis and flexor hallucis longus musculature of the mid-distal leg. 5. No soft tissue abscess. 6. No changes of acute osteomyelitis. 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
[2018-10-09] MEDS: Piperacillin/Tazobactam 3.375 GM in 0.9 % Sodium Chloride Mini Bag 100 ML IVPB SCH (17:31)
[2018-10-09] MEDS ORDERED: Vancomycin 1 EACH in 0.9 % Sodium Chloride 250 ML IVPB SCH (18:00)
[2018-10-09] MEDS ORDERED: Piperacillin/Tazobactam 3.375 GM in 0.9 % Sodium Chloride Mini Bag 100 ML IVPB SCH (18:00)
[2018-10-09] MEDS: RisperiDAL 3 MG TABLET PO SCH (21:11)
[2018-10-10] MEDS: Piperacillin/Tazobactam 3.375 GM in 0.9 % Sodium Chloride Mini Bag 100 ML IVPB SCH ×3 (03:16→18:05)
[2018-10-10] MEDS: OXYCODONE Oral CONC 10 MG/0.5 ML ORAL.SYG SL PRN ×3 (05:20→14:38)
[2018-10-10] MEDS: *HR* Heparin 5,000 UNIT/ML VIAL SQ SCH ×2 (05:22→18:05)
[2018-10-10] MEDS: Lisinopril 20 MG TABLET PO SCH (09:02)
[2018-10-10] MEDS: hydroCHLOROthiazide 25 MG TABLET PO SCH (09:02)
[2018-10-10] MEDS: risperiDONE 1 MG TABLET PO SCH (09:02)
[2018-10-10] MEDS: Pregabalin 75 MG CAPSULE PO SCH ×3 (09:02→20:11)
[2018-10-10] MEDS: Thiamine (B-1) 100 MG TABLET PO SCH (09:02)
[2018-10-10] MEDS: Metoprolol XL (24 HR) Succ 50 MG TAB.ER.24H PO SCH ×2 (09:02→20:11)
[2018-10-10] MEDS: Folic Acid 1 MG TABLET PO SCH (09:03)
[2018-10-10] MEDS: Fluticasone Propionate Nasal 50 MCG/SPRAY BOTTLE NS SCH ×2 (09:03→20:12)
[2018-10-10] MEDS: Insulin LISPRO 300 UNITS/3 ML VIAL SQ SCH ×4 (09:03→20:55)
[2018-10-10] MEDS: Nicotine 21 MG PATCH.TD24 TD SCH (09:04)
--- NOTE | 2018-10-10 09:37 | Infectious Disease Progress No ---
ID Progress Note Date of Encounter: 10/10/18 Time of Encounter: 09:35 - Subjective Subjective: Patient seen and examined. No acute events noted overnight. POD #1. Patient states overall he feels well. Reports pain side of the left ankle ulceration. Denies fevers, chills, rigors. Denies chest pain, shortness of breath, or cough. Denies nausea, vomiting, diarrhea, or constipation. Denies abdominal pain or urinary complaints. States his appetite is good, but he does not like the food here. Denies oral thrush or new skin lesions. - Objective CBC & Chem 7: 10/11/18 02:46 10/11/18 02:46 - Exam Vitals: Temp Pulse Resp BP Pulse Ox 97.9 F 72 17 112/70 92 10/10/18 06:24 10/10/18 06:24 10/10/18 06:24 10/10/18 06:24 10/10/18 06:24 Exam: Head: Atraumatic, normal inspection, normocephalic. Eye: EOMI, PERRLA, no scleral icterus noted. ENT: Mucous membranes moist. No odontogenic infection noted. Neck: Normal inspection, no meningismus. Respiratory: Clear to auscultation. No rales, respiratory distress, rhonchi, or wheezes noted. Cardiovascular: Regular rate and rhythm, S1 and S2 audible. No murmurs, rubs, or gallops. GI: Soft, obese, normal bowel sounds. Extremities: Venous stasis dermatitis noted bilateral lower extremities. 1+ edema noted to the bilateral lower extremities. Bilateral feet and ankle dressings are clean, dry, and intact. Back: Normal inspection. No vertebral tenderness noted. Neurological: Alert, oriented 3, no focal deficits. Psychiatric: normal affect, normal mood. Skin: Dry, intact, warm. Normal color. No rashes. - Assessment and Plan (1) Leg wound, left Current Visit: Yes Status: Acute Location: Left lateral ankle. Etiology: Unclear. Patient states that he noticed a blister there are 2-3 months ago and thinks it might be related to wound VAC tubing from his left heel dressing. Has been following with wound clinic 2 times a week and had regression of the wounds and was advised to come to the ER for evaluation. MRI of the left lower extremity shows findings consistent with myositis and tenosynovitis, but no osteomyelitis or abscess. ESR 66, CRP 22. Previous wound cultures obtained 10/03/18 were positive for Proteus mirabilis. Podiatry consulted. At his post-perforation of right heel wound for graft, application of graft to right heel wound, excisional debridement left foot wound to subcutaneous tissue, and left lateral leg wound 10/09/[address] Mancia. Operative note reviewed. No cultures were sent. Currently on Vanco and Zosyn. Qualifiers: Encounter type: initial encounter Qualified Code(s): S81.802A - Unspecified open wound, left lower leg, initial encounter SNOMED Code(s): 188255545, 028306951 (2) Foot ulcer, limited to breakdown of skin Current Visit: No Status: Acute Location: Left heel. Ongoing since February. Clinically does not appear infected. Podiatry consult and following. Qualifiers: Laterality: left Qualified Code(s): L97.521 - Non-pressure chronic ulcer of other part of left foot limited to breakdown of skin SNOMED Code(s): 16505378, 56319222, 637037343 (3) Foot ulcer with fat layer exposed Current Visit: No Status: Acute Location: Right heel. Chronic and ongoing since February. Clinically does not appear infected. Podiatry consult and following. Status post preparation right wound for graft, and application of right heel wound graft 10/09/[address] Mancia. Qualifiers: Laterality: right Qualified Code(s): L97.512 - Non-pressure chronic ulcer of other part of right foot with fat layer exposed SNOMED Code(s): 00396382, 27690111 (4) Morbid obesity Current Visit: No Status: Chronic SNOMED Code(s): 083410007 (5) Diabetes mellitus Current Visit: Yes Status: Chronic Recommend aggressive glucose monitoring and control to promote wound healing and prevent reinfection. Management per the primary team. 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 Diabetes mellitus complication status: with skin complications Diabetes mellitus complication detail: with foot ulcer Qualified Code(s): E11.621 - Type 2 diabetes mellitus with foot ulcer; L97.509 - Non-pressure chronic ulcer of other part of unspecified foot with unspecified severity SNOMED Code(s): 37800613 (6) HTN (hypertension) Current Visit: Yes Status: Chronic Qualifiers: Hypertension type: essential hypertension Qualified Code(s): I10 - Essential (primary) hypertension SNOMED Code(s): 73256681 (7) Alcohol abuse Current Visit: Yes Status: Chronic The patient states he drinks 24-30 beers per day. CIWA protocol per the primary team. SNOMED Code(s): 50179684 (8) COPD (chronic obstructive pulmonary disease) Current Visit: Yes Status: Chronic Qualifiers: COPD type: unspecified COPD Qualified Code(s): J44.9 - Chronic obstructive pulmonary disease, unspecified SNOMED Code(s): 53003658 (9) Tobacco abuse Current Visit: No Status: Chronic NRT per the primary team. SNOMED Code(s): 319654685 - Recommendations Recommendations: Wound care per the podiatry team. No sepsis criteria and the patient does not appear toxic. Continue vancomycin IV. Pharmacy to dose. Goal Approximately 15. Continue Zosyn 3.375 g IV every 8 hours. Duration of treatment depends on the clinical picture. We will discuss with the podiatry team. Monitor renal function for drug toxicity and dose adjust antibiotics. Contact precautions per hospital policy for multidrug resistant Proteus. Consult Discharge Plan - Plan Referrals: Froylan Guido MD [Primary Care Provider] - Cristina Avila CNP [Advanced Practice Nurse] - 10/29/18 2:00 pm Prescriptions: Ertapenem [INVanz] 1,000 mg IVPB DAILY #28 vial - Attending Attestation I have personally performed a face to face evaluation on this patient. I have reviewed and agree with the care plan. History and Exam by me shows: Assessment and plan: 1.Leg wound on the left with no osteomyelitis or abscess on the MRI findings consistent with myositis and 15 no synovitis. Cultures from 10/03/2018 positive for Proteus mirabilis 2.Foot ulcer left heel ongoing since February treated by me for 11 weeks with Zosyn. Causative organism was Pseudomonas fluorescence, enterococcus avium and corynebacterium species 3.Diabetes mellitus type 2 4.Hypertension 5.Morbid obesity 6.Tobacco abuse 7.EtOH abuse drinks about 24 cans of beer daily Recommendations: Continue to observe off antibiotics until surgery Patient itching to go home and he is threatening to sign out AMA I told him that we would like to get cultures back before we make further recommendations
--- NOTE | 2018-10-10 10:16 | Internal Med Progress Note ---
Hospitalist Progress Note - Encounter Date of Encounter: 10/10/18 Time of Encounter: 11:00 - Subjective Interval History: Patient is a 48-year-old male past medical history significant for diabetes and chronic heel ulcer to both lower extremities who presented to the ER from wound clinic due to concerns for infection involving all started in the left lower extremity just above the lateral malleolus with an exposed tendon. Patient has returned today and is postop day 1 for preparation of bilateral wounds for graft, application of graft, removal of non-viable tissue left leg wound - Exam Vitals: Temp Pulse Resp BP Pulse Ox 97.9 F 72 17 112/70 92 10/10/18 06:24 10/10/18 06:24 10/10/18 06:24 10/10/18 06:24 10/10/18 06:24 Exam: Gen.: Nonacute distress, alert and oriented 3 ENT: Mucosal membranes moist Respiratory: Lungs are clear to auscultation bilaterally without any wheezing rhonchi or rales Cardiovascular: Normal S1 and S2 regular rate rhythm no murmurs rubs or gallops Abdomen: Soft, nontender and nondistended with positive bowel sounds Extremities: No lower extremity edema Skin: Normal color - Assessment and Plan (1) Ulcer of right heel and midfoot with fat layer exposed Current Visit: Yes Status: Acute Assessment and Plan: Patient noted to have stage II ulcer noted right lateral calncaneus with granular and fibrin tissue noted to wound base. Patient postop day 1 for preparation of bilateral wounds for graft, application of graft, removal of non-viable tissue left leg wound Patient infectious disease following with recommendations for IV antibiotics with IV vancomycin and IV Zosyn (2) Leg wound, left Current Visit: Yes Status: Acute Assessment and Plan: Podiatry following and patient noted to have documented stage IV ulcer noted left lateral distal extremity measuring 5 x 3.7 cm and tendon exposed with necrotic tissue at wound base. Final wound cultures from 10/03/2018 Proteus mirabilis MRI showed evidence of a wound on the lateral aspect of the distal left leg measures 3 x 2.7 cm exposing the peroneus longus and brevis tendons in adddition to extensive myositis throughout the peroneal compartment with tenosynovitis of the peroneal tendons in the retromalleolar region. Patient postop day 1 for preparation of bilateral wounds for graft, application of graft, removal of non-viable tissue left leg wound (3) Diabetes mellitus Current Visit: Yes Status: Chronic Assessment and Plan: Blood sugars are well controlled. Continue current insulin regimen. (4) HTN (hypertension) Current Visit: Yes Status: Chronic Assessment and Plan: Continue home dose of hydrochlorothiazide, lisinopril and metoprolol (5) COPD (chronic obstructive pulmonary disease) Current Visit: Yes Status: Chronic Assessment and Plan: Not in acute exacerbation. Continue bronchodilators as needed. (6) Alcohol abuse Current Visit: Yes Status: Chronic Assessment and Plan: Continue to monitor for withdrawal symptoms. On CIWA protocol (7) Tobacco abuse Current Visit: Yes Status: Acute Assessment and Plan: Continue nicotine patch. DVT Prophylaxis: Subcutaneous heparin - Time Spent with Patient Total time spent is greater than 50% in coordination of care (as documented) at patient's floor/unit and/or counseling patient: Internal Medicine: Result - Labs CBC & Chem 7: 10/10/18 12:08 10/10/18 12:08 Consult Discharge Plan - Plan Referrals: Froylan Guido MD [Primary Care Provider] - (2) Leg wound, left Qualifiers: Encounter type: initial encounter Qualified Code(s): S81.802A - Unspecified open wound, left lower leg, initial encounter (3) Diabetes mellitus Qualifiers: Diabetes mellitus type: type 2 Diabetes mellitus senior living insulin use: without senior living use Diabetes mellitus complication status: with skin complications Diabetes mellitus complication detail: with foot ulcer Qualified Code(s): E11.621 - Type 2 diabetes mellitus with foot ulcer; L97.509 - Non- pressure chronic ulcer of other part of unspecified foot with unspecified severity (4) HTN (hypertension) Qualifiers: Hypertension type: essential hypertension Qualified Code(s): I10 - Essential (primary) hypertension (5) COPD (chronic obstructive pulmonary disease) Qualifiers: COPD type: unspecified COPD Qualified Code(s): J44.9 - Chronic obstructive pulmonary disease, unspecified
--- NOTE | 2018-10-10 10:55 | Podiatry Progress Note ---
Date of Encounter: 10/10/18 Time of Encounter: 09:40 - Assessment and Plan (1) Ulcer of right heel and midfoot with fat layer exposed Current Visit: Yes Status: Acute Assessment: -Post op day #1: Preparation of right heel wound for graft, application of graft to right heel wound, excisional debridement left foot wound into subq left lateral leg wound by Dr. Bower on 09/09/2018 -2/4 PT/DP pulse noted -WBC 5.4 -ESR 66, CRP 22 -Blood cultures pending -Patient receiving IV Vancomysin, Zosyn Plan: -Area flushed thoroughly with sterile saline and pat dry -Wound vac placed. Adaptic was placed over the graft and black granulofoam was placed, draped with tegaderm in usual fashion, bridge to medial aspect of leg. The tubing was off loaded using ABD pads and Kerlix, secured with MARIS. Tubing connected to y-connector for KCI vac. Good seal was noted and suction was at 150 mmHG high intensity continuous. -Limited weight bearing, use post op surgical shoe for ambulation -Please make arrangements for patient to be evaluated in [facility] Sunday, Sunday, and Sunday for wound vac dressing changes -Follow up with Dr. Bower in [facility] one week after discharge, schedule appointment prior to discharge -Will continue to monitor (2) Leg wound, left Current Visit: Yes Status: Acute Assessment -Post op day #1: Preparation of right heel wound for graft, application of graft to right heel wound, excisional debridement left foot wound into subq left lateral leg wound by Dr. Bower on 09/09/2018 -2/4 PT/DP pulse noted -WBC 5.4 -ESR 66, CRP 22 -Blood cultures pending -Patient receiving IV Vancomysin, Zosyn - ID following Plan: -Area flushed thoroughly with sterile saline and pat dry -Wound cultures and anaerobic cultures obtained -Wound vac placed. White foam was placed over the site and covered with black granulofoam, draped with tegaderm in usual fashion, bridge to lateral aspect of leg. The tubing was off loaded using ABD pads and Kerlix, secured with MARIS. Tubing connected to y-connector for KCI vac. Good seal was noted and suction was at 150 mmHG high intensity continuous. -Limited weight bearing, use post op surgical shoe for ambulation -Please make arrangements for patient to be evaluated in [facility] Sunday, Sunday, and Sunday for wound vac dressing changes -Follow up with Dr. Bower in [facility] one week after discharge, schedule appointment prior to discharge Qualifiers: Encounter type: initial encounter Qualified Code(s): S81.802A - Unspecified open wound, left lower leg, initial encounter (3) Diabetes mellitus Current Visit: Yes Status: Chronic Assessment: -Blood sugar 121 -Hgb A1c 5.3 on 09/02/2018 Plan: -Tight glycemic control to prevent further complication and promote healing - primary managing Qualifiers: Diabetes mellitus type: type 2 Diabetes mellitus intermediate accountant insulin use: without longterm use Diabetes mellitus complication status: with skin complications Diabetes mellitus complication detail: with foot ulcer Qualified Code(s): E11.621 - Type 2 diabetes mellitus with foot ulcer; L97.509 - Non-pressure chronic ulcer of other part of unspecified foot with unspecified severity (4) Tobacco abuse Current Visit: No Status: Chronic Assessment: -Patient does report chronic tobacco use Plan: -Smoking cessation to promote wound healing and prevent further complication Subjective Interval history: Post op day #1: Preparation of right heel wound for graft, application of graft to right heel wound, excisional debridement left foot wound into subq left lateral leg wound by Dr. Bower on 09/09/2018 Patient is alert and oriented, sitting on side of bed insistent that he walks to the restroom. No acute distress noted. Discussed with patient that it is best he remain NWB and he is adamant that he walks and states he is going to anyway. He denies any chest pain, shortness of breath, or calf pain. Patient denies any fever, chills, n/v/d. He does report some mild discomfort to left lower leg. No acute overnight events reported. Objective - Vital Signs Vital Signs: Vital Signs Temp Pulse Resp BP Pulse Ox 10/10/18 06:24 97.9 F 72 17 112/70 92 10/10/18 03:55 97.9 F 81 17 102/66 90 10/10/18 00:08 98.5 F 86 16 107/68 91 10/09/18 17:10 98.1 F 79 14 117/80 96 10/09/18 16:01 98.2 F 63 18 123/80 96 10/09/18 15:25 98.0 F 84 16 123/76 95 10/09/18 14:50 97.5 F L 83 14 149/83 94 10/09/18 14:27 97.5 F L 77 12 144/78 96 10/09/18 14:17 77 12 132/71 93 10/09/18 14:07 81 16 140/78 93 10/09/18 13:57 97.3 F L 78 16 132/74 100 Intake and Output 10/09/18 10/10/18 10/10/18 23:59 07:59 15:59 Intake Total 350 / 350 460 / 460 Output Total 550 / 550 Balance 350 / -885 -550 / -90 460 / -90 Intake: IV Fluids 350 / 350 100 / 100 Zosyn 3.375 GM In 0.9 % Sodium 100 / 100 100 / 100 Chloride (Mini-Bag +) 100 ML @ 25 mls/hr IVPB Q8H [facility] Rx#: [id number] Vancocin 1,500 MG In 0.9 % 250 / 250 Sodium Chloride 250 ML @ 166.67 mls/hr IVPB Q12H [facility] Rx#: [id number] Oral 360 / 360 Output: Urine 550 / 550 Other: Meal Dinner Percent of Meal Consumed 80% Weight 126.2 kg Blood Glucose* 240 145 Patient Weight 10/10/18 23:59 Weight 126.2 kg - Exam Exam: Constitutional: Alert and oriented male, no acute distress noted, well nourished Vascular: 2/4 PT/DP pulse noted bilaterally, cap refill less than 3 seconds to all digits, no pain with calf squeeze bilaterally, skin warm from tibia to toes Neurological: Absent protective sensation, abnormal prioproception, abnormal dorsal reflex Dermatological: Surgical wound to left lateral lower extremity with tendon exposed. No drainage noted. Healing ulcer noted to left lateral calcaneus, wound base granular and pink and edges pink. No lympangitis, no cellulitis, no drainage. Small scabbed area noted to left dorsal aspect of proximal midfoot that is healing. Surgical wound to right calcaneus with graft in place and lizabeth intact. No drainage. No odor. No lympangitis. Musculoskeletal: 4/5 muscle strength, normal tone - Lab Result Diagrams: 10/10/18 12:08 10/10/18 12:08 Labs: Abnormal lab results RBC 3.64 M/mcL (4.19-5.50) L 10/09/18 03:06 Hgb 11.5 g/dL (12.9-16.9) L 10/09/18 03:06 Hct 34.9 % (37.5-50.1) L 10/09/18 03:06 Plt Count 107 K/mcL (140-400) L 10/09/18 03:06 MPV 9.3 fL (9.4-12.4) L 10/09/18 03:06 ESR 66 mm/hr (0-10) H 10/08/18 05:07 BUN 23 mg/dL (6-20) H 10/07/18 15:22 0.68 mg/dL (0.70-1.30) L 10/09/18 03:06 28 (6-26) H 10/07/18 15:22 Glucose 121 mg/dL (70-105) H 10/09/18 03:06 POC Glucose 214 mg/dL (70-99) H 10/09/18 15:51 22 mg/L (Less than 10) H 10/08/18 05:07 Consult Discharge Plan - Plan Referrals: Froylan Guido MD [Primary Care Provider] -
[2018-10-10 12:28] LABS: Basophils % 0.2 %; Eosinophils % 0.2 %; Hematocrit 38.8 % (37.5-50.1); Hemoglobin 12.6 g/dL (12.9-16.9); Immature Granulocytes % 0.3 % (0-4); Lymphocytes # 1.2 K/mcL (0.6-4.6); Lymphocytes % 14.3 %; Mean Corpuscular HGB Conc 32.5 g/dL (31.6-35.5); Mean Corpuscular Hemoglobin 31.7 pg (28.0-33.3); Mean Corpuscular Volume 97.7 fL (83.0-100.0); Mean Platelet Volume 9.4 fL (9.4-12.4); Monocytes % 11.3 %; Neutrophils # 6.4 K/mcL (1.6-8.9); Platelet Count 114 K/mcL (140-400); Red Blood Count 3.97 M/mcL (4.19-5.50); Segmented Neutrophils % 73.7 %
[2018-10-10 12:47] LABS: BUN/Creatinine Ratio 13 (6-26); Blood Urea Nitrogen 11 mg/dL (6-20); Calcium 9.4 mg/dL (8.6-10.3); Carbon Dioxide 28 mEq/L (23-29); Chloride 102 mEq/L (98-107); Glucose 158 mg/dL (70-105); Osmolality,Calculated 287 (280-300); Potassium 4.2 mEq/L (3.5-5.1); Sodium 137 mEq/L (136-145); eGFR For Non-African Americans > 60 (> 60)
[2018-10-10] MEDS ORDERED: *HR* OxyCODONE Immed Rel 5 MG TABLET PO PRN (15:53)
[2018-10-10] MEDS: *HR* OxyCODONE Immed Rel 5 MG TABLET PO PRN ×2 (18:10→22:30)
[2018-10-10] MEDS: RisperiDAL 3 MG TABLET PO SCH (20:11)
[2018-10-11] MEDS: Piperacillin/Tazobactam 3.375 GM in 0.9 % Sodium Chloride Mini Bag 100 ML IVPB SCH ×2 (01:38→09:12)
[2018-10-11 03:58] LABS: Basophils % 0.5 %; Eosinophils # 0.1 K/mcL (0.0-0.6); Eosinophils % 1.7 %; Hematocrit 36.1 % (37.5-50.1); Hemoglobin 11.6 g/dL (12.9-16.9); Immature Granulocytes % 0.4 % (0-4); Lymphocytes # 1.5 K/mcL (0.6-4.6); Mean Corpuscular HGB Conc 32.1 g/dL (31.6-35.5); Mean Corpuscular Hemoglobin 31.4 pg (28.0-33.3); Mean Corpuscular Volume 97.8 fL (83.0-100.0); Mean Platelet Volume 9.7 fL (9.4-12.4); Monocytes # 1.1 K/mcL (0.0-1.3); Monocytes % 14.5 %; Neutrophils # 4.9 K/mcL (1.6-8.9); Platelet Count 134 K/mcL (140-400); Red Blood Count 3.69 M/mcL (4.19-5.50); Red Cell Distribution Width 13.2 % (11.5-14.5); Segmented Neutrophils % 62.9 %
[2018-10-11 04:06] LABS: BUN/Creatinine Ratio 19 (6-26); Blood Urea Nitrogen 17 mg/dL (6-20); Calcium 9.2 mg/dL (8.6-10.3); Carbon Dioxide 27 mEq/L (23-29); Chloride 102 mEq/L (98-107); Glucose 116 mg/dL (70-105); Osmolality,Calculated 293 (280-300); Potassium 3.9 mEq/L (3.5-5.1); Sodium 140 mEq/L (136-145); eGFR For Non-African Americans > 60 (> 60)
[2018-10-11] MEDS: *HR* Heparin 5,000 UNIT/ML VIAL SQ SCH (05:11)
[2018-10-11] MEDS: Nicotine 21 MG PATCH.TD24 TD SCH (09:08)
[2018-10-11] MEDS: Metoprolol XL (24 HR) Succ 50 MG TAB.ER.24H PO SCH (09:08)
[2018-10-11] MEDS: Thiamine (B-1) 100 MG TABLET PO SCH (09:08)
[2018-10-11] MEDS: Pregabalin 75 MG CAPSULE PO SCH ×2 (09:08→15:17)
[2018-10-11] MEDS: *HR* OxyCODONE Immed Rel 5 MG TABLET PO PRN ×2 (09:09→13:29)
[2018-10-11] MEDS: Lisinopril 20 MG TABLET PO SCH (09:09)
[2018-10-11] MEDS: Folic Acid 1 MG TABLET PO SCH (09:09)
[2018-10-11] MEDS: risperiDONE 1 MG TABLET PO SCH (09:10)
[2018-10-11] MEDS: hydroCHLOROthiazide 25 MG TABLET PO SCH (09:10)
[2018-10-11] MEDS: Fluticasone Propionate Nasal 50 MCG/SPRAY BOTTLE NS SCH (09:10)
[2018-10-11] MEDS: Insulin LISPRO 300 UNITS/3 ML VIAL SQ SCH ×2 (09:11→13:05)
--- NOTE | 2018-10-11 10:08 | Podiatry Progress Note ---
Date of Encounter: 10/11/18 Time of Encounter: 08:30 - Assessment and Plan (1) Ulcer of right heel and midfoot with fat layer exposed Current Visit: Yes Status: Acute Assessment: -Post op day #2: Preparation of right heel wound for graft, application of graft to right heel wound, excisional debridement left foot wound into subq left lateral leg wound by Dr. Bower on 09/09/2018 -2/4 PT/DP pulse noted -WBC 7.7 -ESR 66, CRP 22 -Blood cultures pending -Patient receiving IV Vancomysin, Zosyn Plan: -Dressing to lower extremity dry and intact. -Wound vac working properly, less than 50cc of serosanguineous drainage noted. -Orders to for wound vac changes placed for every Sunday, , and Sunday -Limited weight bearing, use post op surgical shoe for ambulation -Please make arrangements for patient to be evaluated in [facility] , Sunday, and Sunday for wound vac dressing changes -Follow up with Dr. Bower in [facility] one week after discharge, schedule appointment prior to discharge (2) Leg wound, left Current Visit: Yes Status: Acute Assessment -Post op day #2: Preparation of right heel wound for graft, application of graft to right heel wound, excisional debridement left foot wound into subq left lateral leg wound by Dr. Bower on 09/09/2018 -2/4 PT/DP pulse noted -WBC 7.7 -ESR 66, CRP 22 -Blood cultures pending -Wound cultures pending -Patient receiving IV Vancomysin, Zosyn - ID following Plan: -Dressing to lower extremity dry and intact. -Wound vac working properly, less than 50cc of serosanguineous drainage noted. -Orders to for wound vac changes placed for every Sunday, , and Sunday -Limited weight bearing, use post op surgical shoe for ambulation -Please make arrangements for patient to be evaluated in [facility] Sunday, Sunday, and Sunday for wound vac dressing changes -Follow up with Dr. Bower in [facility] one week after discharge, schedule appointment prior to discharge Qualifiers: Encounter type: initial encounter Qualified Code(s): S81.802A - Unspecified open wound, left lower leg, initial encounter (3) Diabetes mellitus Current Visit: Yes Status: Chronic Assessment: -Blood sugar 116 -Hgb A1c 5.3 on 09/02/2018 Plan: -Tight glycemic control to prevent further complication and promote healing - primary managing Qualifiers: Diabetes mellitus type: type 2 Diabetes mellitus terminal worker insulin use: without terminal worker use Diabetes mellitus complication status: with skin complications Diabetes mellitus complication detail: with foot ulcer Qualified Code(s): E11.621 - Type 2 diabetes mellitus with foot ulcer; L97.509 - Non-pressure chronic ulcer of other part of unspecified foot with unspecified severity (4) Tobacco abuse Current Visit: No Status: Chronic Assessment: -Patient does report chronic tobacco use Plan: -Smoking cessation to promote wound healing and prevent further complication Subjective Interval history: Post op day #2: Preparation of right heel wound for graft, application of graft to right heel wound, excisional debridement left foot wound into subq left lateral leg wound by Dr. Bower on 09/09/2018 Patient is alert and oriented, no acute distress noted. No acute overnight events noted. Patient denies any chest pain, shortness of breath, or calf pain. He denies any fever, chills, n/v/d. . Objective - Vital Signs Vital Signs: Vital Signs Temp Pulse Resp BP Pulse Ox 10/11/18 07:23 98.1 F 72 16 124/78 97 10/11/18 03:50 97.7 F 57 16 103/65 93 10/11/18 00:45 97.8 F 60 15 106/62 95 10/10/18 18:27 98.1 F 76 16 132/75 93 10/10/18 14:18 97.3 F L 73 15 115/74 92 10/10/18 10:57 97.8 F 73 16 124/75 94 Intake and Output 10/10/18 10/11/18 10/11/18 23:59 07:59 15:59 Intake Total 830 / 1640 950 / 950 Output Total 0 / 1360 0 / 0 Balance 830 / 280 950 / 950 Intake: IV Fluids 350 / 800 350 / 350 Zosyn 3.375 GM In 0.9 % Sodium 100 / 300 100 / 100 Chloride (Mini-Bag +) 100 ML @ 25 mls/hr IVPB Q8H [facility] Rx#: [id number] Vancocin 1,250 MG In 0.9 % 250 / 500 250 / 250 Sodium Chloride 250 ML @ 166.67 mls/hr IVPB Q12H [facility] Rx#: [id number] Oral 480 / 840 600 / 600 Output: Urine 0 / 1350 0 / 0 Other: # Voids 1 # Bowel Movements 0 0 Weight 126.8 kg Blood Glucose* 155 144 Patient Weight 10/11/18 23:59 Weight 126.8 kg - Exam Exam: Constitutional: Alert and oriented male, no acute distress noted, well nourished Vascular: 2/4 PT/DP pulse noted bilaterally, cap refill less than 3 seconds to all digits, no pain with calf squeeze bilaterally, skin warm from tibia to toes Neurological: Absent protective sensation, abnormal prioproception, abnormal dorsal reflex Dermatological: Dressings dry and intact, no sttrike through noted. No swelling above or below dressing. Musculoskeletal: Movement of toes noted, normal tone - Lab Result Diagrams: 10/11/18 02:46 10/11/18 02:46 Labs: Abnormal lab results RBC 3.69 M/mcL (4.19-5.50) L 10/11/18 02:46 Hgb 11.6 g/dL (12.9-16.9) L 10/11/18 02:46 Hct 36.1 % (37.5-50.1) L 10/11/18 02:46 Plt Count 134 K/mcL (140-400) L 10/11/18 02:46 MPV 9.3 fL (9.4-12.4) L 10/09/18 03:06 ESR 66 mm/hr (0-10) H 10/08/18 05:07 BUN 23 mg/dL (6-20) H 10/07/18 15:22 0.68 mg/dL (0.70-1.30) L 10/09/18 03:06 28 (6-26) H 10/07/18 15:22 Glucose 116 mg/dL (70-105) H 10/11/18 02:46 POC Glucose 155 mg/dL (70-99) H 10/10/18 20:22 22 mg/L (Less than 10) H 10/08/18 05:07 Vancomycin Trough 20 mcg/mL (5-10) H 10/11/18 02:46 Microbiology, Last 48 Hours 10/10/18 09:55 Wound Culture - Preliminary Left Leg Culture is incubating. 10/10/18 09:55 Anaerobic Culture - Preliminary Left Leg Culture is incubating. Consult Discharge Plan - Plan Referrals: Froylan Guido MD [Primary Care Provider] -
--- NOTE | 2018-10-11 13:06 | Infectious Disease Progress No ---
ID Progress Note Date of Encounter: 10/11/18 Time of Encounter: 11:30 - Subjective Subjective: Patient seen and examined. No acute events noted overnight. POD #2. Patient states overall he feels well. Reports pain side of the left ankle ulceration. Denies fevers, chills, rigors. Denies chest pain, shortness of breath, or cough. Denies nausea, vomiting, diarrhea, or constipation. Reports stool is a little loose this morning. Denies abdominal pain or urinary complaints. States his appetite is good, but he does not like the food here. Denies oral thrush or new skin lesions. - Objective CBC & Chem 7: 10/11/18 02:46 10/11/18 02:46 - Exam Vitals: Temp Pulse Resp BP Pulse Ox 98.3 F 70 16 120/74 93 10/11/18 10:14 10/11/18 10:14 10/11/18 10:14 10/11/18 10:14 10/11/18 10:14 Exam: Head: Atraumatic, normal inspection, normocephalic. Eye: EOMI, PERRLA, no scleral icterus noted. ENT: Mucous membranes moist. No odontogenic infection noted. Neck: Normal inspection, no meningismus. Respiratory: Clear to auscultation. No rales, respiratory distress, rhonchi, or wheezes noted. Cardiovascular: Regular rate and rhythm, S1 and S2 audible. No murmurs, rubs, or gallops. GI: Soft, obese, normal bowel sounds. Extremities: Venous stasis dermatitis noted bilateral lower extremities. 1+ edema noted to the bilateral lower extremities. Bilateral feet and ankle wound VAC dressings are clean, dry, and intact. Scant drainage noted in the canister. Back: Normal inspection. No vertebral tenderness noted. Neurological: Alert, oriented 3, no focal deficits. Psychiatric: normal affect, normal mood. Skin: Dry, intact, warm. Normal color. No rashes. - Assessment and Plan (1) Leg wound, left Current Visit: Yes Status: Acute Location: Left lateral ankle. Etiology: Unclear. Patient states that he noticed a blister there are 2-3 months ago and thinks it might be related to wound VAC tubing from his left heel dressing. Has been following with wound clinic 2 times a week and had regression of the wounds and was advised to come to the ER for evaluation. MRI of the left lower extremity shows findings consistent with myositis and tenosynovitis, but no osteomyelitis or abscess. ESR 66, CRP 22. Previous wound cultures obtained 10/03/18 were positive for Proteus mirabilis. Podiatry consulted. Status post-perforation of right heel wound for graft, application of graft to right heel wound, excisional debridement left foot wound to subcutaneous tissue, and left lateral leg wound 10/09/[address] Bower. Operative note reviewed. No cultures were sent. Currently on Vanco and Zosyn. Qualifiers: Encounter type: initial encounter Qualified Code(s): S81.802A - Unspecified open wound, left lower leg, initial encounter SNOMED Code(s): 018331676, 440939940 (2) Foot ulcer, limited to breakdown of skin Current Visit: No Status: Acute Location: Left heel. Ongoing since February. Clinically does not appear infected. Podiatry consult and following. Qualifiers: Laterality: left Qualified Code(s): L97.521 - Non-pressure chronic ulcer of other part of left foot limited to breakdown of skin SNOMED Code(s): 78317832, 81419811, 977786468 (3) Foot ulcer with fat layer exposed Current Visit: No Status: Acute Location: Right heel. Chronic and ongoing since February. Clinically does not appear infected. Podiatry consult and following. Qualifiers: Laterality: right Qualified Code(s): L97.512 - Non-pressure chronic ulcer of other part of right foot with fat layer exposed SNOMED Code(s): 32686338, 74970429 (4) Morbid obesity Current Visit: No Status: Chronic SNOMED Code(s): 436132093 (5) Diabetes mellitus Current Visit: Yes Status: Chronic Recommend aggressive glucose monitoring and control to promote wound healing and prevent reinfection. Management per the primary team. 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 insulin use: without penitentiary use Diabetes mellitus complication status: with skin complications Diabetes mellitus complication detail: with foot ulcer Qualified Code(s): E11.621 - Type 2 diabetes mellitus with foot ulcer; L97.509 - Non-pressure chronic ulcer of other part of unspecified foot with unspecified severity SNOMED Code(s): 26232982 (6) HTN (hypertension) Current Visit: Yes Status: Chronic Qualifiers: Hypertension type: essential hypertension Qualified Code(s): I10 - Essential (primary) hypertension SNOMED Code(s): 51249325 (7) Alcohol abuse Current Visit: Yes Status: Chronic The patient states he drinks 24-30 beers per day. CIWA protocol per the primary team. SNOMED Code(s): 31852540 (8) COPD (chronic obstructive pulmonary disease) Current Visit: Yes Status: Chronic Qualifiers: COPD type: unspecified COPD Qualified Code(s): J44.9 - Chronic obstructive pulmonary disease, unspecified SNOMED Code(s): 99305512 (9) Tobacco abuse Current Visit: No Status: Chronic NRT per the primary team. SNOMED Code(s): 861450281 - Recommendations Recommendations: Wound care per the podiatry team. No sepsis criteria and the patient does not appear toxic. Discontinue Vanc and Zosyn. Start Ertapenem 1 gram IV daily. Duration of treatment depends on the clinical picture, but likely 2-4 weeks. Monitor renal function for drug toxicity and dose adjust antibiotics. Contact precautions per hospital policy for multidrug resistant Proteus. VAT consult for midline placement. Will need weekly CBC, BUN/Cr, ESR, CRP. Will need weekly midline care per protocol. Follow up with ID 10/29/18 at 1400. Consult Discharge Plan - Plan Referrals: Froylan Guido MD [Primary Care Provider] - Cristina Avila CNP [Advanced Practice Nurse] - 10/29/18 2:00 pm Prescriptions: Ertapenem [INVanz] 1,000 mg IVPB DAILY #28 vial OxyCODONE Immed Rel [Roxicodone 5 MG] 5 mg PO Q8H PRN 7 Days #21 tablet PRN Reason: Mild To Moderate Pain - Attending Attestation I have personally performed a face to face evaluation on this patient. I have reviewed and agree with the care plan. History and Exam by me shows: Assessment and plan: 1.Leg wound on the left with no osteomyelitis or abscess on the MRI findings consistent with myositis and 15 no synovitis. Cultures from 10/03/2018 positive for Proteus mirabilis 2.Foot ulcer left heel ongoing since February treated by me for 11 weeks with Zosyn. Causative organism was Pseudomonas fluorescence, enterococcus avium and corynebacterium species 3.Diabetes mellitus type 2 4.Hypertension 5.Morbid obesity 6.Tobacco abuse 7.EtOH abuse drinks about 24 cans of beer daily Recommendations: Wound care per the podiatry team. No sepsis criteria and the patient does not appear toxic. Discontinue Vanc and Zosyn. Start Ertapenem 1 gram IV daily. Duration of treatment depends on the clinical picture, but likely 2-4 weeks. Monitor renal function for drug toxicity and dose adjust antibiotics. Contact precautions per hospital policy for multidrug resistant Proteus. VAT consult for midline placement. Will need weekly CBC, BUN/Cr, ESR, CRP. Will need weekly midline care per protocol. Follow up with ID 10/29/18 at 1400.
[2018-10-11 13:30] LABS: C-Reactive Protein 23 mg/L (Less than 10)
[2018-10-11] MEDS ORDERED: Ertapenem 1,000 MG in 0.9 % Sodium Chloride Mini Bag 100 ML IVPB SCH (14:00)
[2018-10-11 14:39] VITALS: BP 122/76
--- NOTE | 2018-10-11 15:23 | Discharge Summary ---
Orders not resulted at time of discharge: Pending orders 10/07/18 15:44 Culture,Blood [BC] Stat 10/10/18 09:55 Culture,Anaerobic [RM] Routine Culture,Wound [RM] Routine 10/12/18 04:00 Basic Metabolic Panel AM 0400 Complete Blood Count [HEME] AM 0400 10/13/18 04:00 Basic Metabolic Panel AM 0400 Complete Blood Count [HEME] AM 0400 10/14/18 04:00 Basic Metabolic Panel AM 0400 Complete Blood Count [HEME] AM 0400 10/15/18 04:00 Basic Metabolic Panel AM 0400 Complete Blood Count [HEME] AM 0400 Date of Encounter: 10/11/18 Time of Encounter: 11:00 - Discharge Diagnosis (1) Ulcer of right heel and midfoot with fat layer exposed Priority: Primary Status: Acute (2) Leg wound, left Priority: Secondary Status: Acute Qualifiers: Encounter type: initial encounter Qualified Code(s): S81.802A - Unspecified open wound, left lower leg, initial encounter (3) Diabetes mellitus Priority: Secondary Status: Chronic Qualifiers: Diabetes mellitus type: type 2 Diabetes mellitus longterm insulin use: without terminal gauger supervisor use Diabetes mellitus complication status: with skin complications Diabetes mellitus complication detail: with foot ulcer Qualified Code(s): E11.621 - Type 2 diabetes mellitus with foot ulcer; L97.509 - Non-pressure chronic ulcer of other part of unspecified foot with unspecified severity (4) HTN (hypertension) Priority: Secondary Status: Chronic Qualifiers: Hypertension type: essential hypertension Qualified Code(s): I10 - Essential (primary) hypertension (5) COPD (chronic obstructive pulmonary disease) Priority: Secondary Status: Chronic Qualifiers: COPD type: unspecified COPD Qualified Code(s): J44.9 - Chronic obstructive pulmonary disease, unspecified (6) Alcohol abuse Priority: Secondary Status: Chronic (7) Tobacco abuse Priority: Secondary Status: Acute Hospital course: Patient is a 48-year-old male past medical history significant for diabetes and chronic heel ulcer to both lower extremities who presented to the ER from wound clinic due to concerns for infection involving all started in the left lower extremity just above the lateral malleolus with an exposed tendon. During patients hospital stay podiatry was consulted for bilateral wounds for graft, application of graft, removal of non-viable tissue left leg wound. Infectious disease is also consulted with recommendations for IV antibiotics with ertapenem - Time Spent with Patient Total time spent providing and/or coordinating discharge services: Time spent: Less than 30 minutes - Discharge Medications Prescriptions: New Ertapenem [INVanz] 1,000 mg IVPB DAILY #28 vial OxyCODONE Immed Rel [Roxicodone 5 MG] 5 mg PO Q8H PRN 7 Days #21 tablet PRN Reason: Mild To Moderate Pain Continued Omeprazole [PriLOSEC] 40 mg PO DAILY [place]-3/Dha/Epa/Fish Oil [Fish Oil 1,000 mg Softgel] 2,000 mg PO BID Albuterol Sulfate [Albuterol Inhaler] 2 puff IH Q4HR PRN PRN Reason: Shortness Of Breath Pregabalin [Lyrica] 150 mg PO TID Loratadine [Claritin] 10 mg PO DAILY diazePAM [Valium] 10 mg PO 2-3XD PRN PRN Reason: Anxiety. Atorvastatin [Lipitor] 40 mg PO HS Collagenase Oint [Santyl] 1 appl TP BID Fluticasone Propionate Nasal [Flonase] 1 spr NS BID risperiDONE [Risperdal] 2 mg PO QAM Meloxicam [Mobic] 15 mg PO DAILY glipiZIDE [Glipizide] 10 mg PO BID hydroCHLOROthiazide [Hydrochlorothiazide] 25 mg PO DAILY Ibuprofen [Motrin] 600 mg PO BID PRN PRN Reason: Pain Metformin HCl 500 mg PO BIDWM Metoprolol Succinate [Toprol Xl] 100 mg PO BID Multivitamin [One Daily] 1 tab PO QAM Quinapril HCl [Accupril] 40 mg PO DAILY risperiDONE [Risperdal] 3 mg PO HS Sennosides/Docusate Sodium [Senna Plus] 1 tab PO DAILY PRN PRN Reason: Constipation Discontinued Clindamycin HCl 300 mg PO QID levoFLOXacin [Levofloxacin] 500 mg PO DAILY Home Medications: Albuterol Sulfate [Albuterol Inhaler] 2 puff IH Q4HR PRN 04/06/16 [History] [place]-3/Dha/Epa/Fish Oil [Fish Oil 1,000 mg Softgel] 2,000 mg PO BID 04/06/16 [History] Omeprazole [PriLOSEC] 40 mg PO DAILY 04/06/16 [History] Loratadine [Claritin] 10 mg PO DAILY 12/21/16 [History] Pregabalin [Lyrica] 150 mg PO TID 12/21/16 [History] diazePAM [Valium] 10 mg PO 2-3XD PRN 09/05/17 [History] Atorvastatin [Lipitor] 40 mg PO HS 03/13/18 [History] Collagenase Oint [Santyl] 1 appl TP BID 03/13/18 [History] Fluticasone Propionate Nasal [Flonase] 1 spr NS BID 03/13/18 [History] risperiDONE [Risperdal] 2 mg PO QAM 03/13/18 [History] Ibuprofen [Motrin] 600 mg PO BID PRN 10/08/18 [History] Meloxicam [Mobic] 15 mg PO DAILY 10/08/18 [History] Metformin HCl 500 mg PO BIDWM 10/08/18 [History] Metoprolol Succinate [Toprol Xl] 100 mg PO BID 10/08/18 [History] Multivitamin [One Daily] 1 tab PO QAM 10/08/18 [History] Quinapril HCl [Accupril] 40 mg PO DAILY 10/08/18 [History] Sennosides/Docusate Sodium [Senna Plus] 1 tab PO DAILY PRN 10/08/18 [History] glipiZIDE [Glipizide] 10 mg PO BID 10/08/18 [History] hydroCHLOROthiazide [Hydrochlorothiazide] 25 mg PO DAILY 10/08/18 [History] risperiDONE [Risperdal] 3 mg PO HS 10/08/18 [History] Ertapenem [INVanz] 1,000 mg IVPB DAILY #28 vial 10/11/18 [Rx] OxyCODONE Immed Rel [Roxicodone 5 MG] 5 mg PO Q8H PRN 7 Days #21 tablet 10/11/18 [Rx] Allergies/Adverse Reactions: Allergy/AdvReac Type Severity Reaction Status Date / Time hydrocodone [From Vicodin] AdvReac Severe Nausea Verified 10/08/18 12:59 cephalexin [From Keflex] AdvReac Vomiting Verified 10/08/18 12:59 codeine AdvReac Confusion Verified 10/08/18 12:59 morphine AdvReac Rash Verified 10/08/18 12:59 Date of admission: 10/07/18 16:57 Primary care physician: Froylan Guido MD Consults: 10/07/18 16:48 Consult to Podiatry [CONS] Stat Consulting Provider: [facility] Reason for Consult: leg wound Time Notified: 16:48 Call Completed: Yes 10/07/18 17:36 Consult to [place] [CONS] Routine Reason for SW Consult: Alcohol abuse 10/07/18 18:15 Consult to Infectious Diseases [CONS] Routine Consulting Provider: Infectious Disease [facility] Reason for Consult: Left leg wound infecction concern for tenosynovitits/ osteomyelitis Time Notified: 18:15 Call Completed: Yes 10/08/18 00:48 Consult to Nutrition [CONS] Routine Comment: Consulting Provider: NUTRITION Reason for Dietary Consult: MST Score - Constitutional Vitals: Temp Pulse Resp BP Pulse Ox 98.1 F 68 16 122/76 93 10/11/18 14:38 10/11/18 14:38 10/11/18 14:38 10/11/18 14:38 10/11/18 14:38 General appearance: Present: cooperative, A&O X 3, pleasant, answers questions appropriately Exam: Gen.: Nonacute distress, alert and oriented 3 Skin: Normal color - Patient Status Disposition: Home Health Service Condition: Fair - Discharge Instructions Instructions: Oxycodone, Rapid Release (By mouth), Ertapenem (Injection) Follow Up With: Froylan Guido MD [Primary Care Provider] - (Office will call with appointment.) Cristina Avila, ETCH OPERATOR [employer] [Advanced Practice Nurse] - 10/29/18 2:00 pm
--- NOTE | 2018-10-11 15:24 | Physician Discharge Referral ---
Home Health/Hosp Referral Info Transfer to: Home Health - Diagnosis (1) Ulcer of right heel and midfoot with fat layer exposed Status: Acute (2) Leg wound, left Status: Acute (3) Diabetes mellitus Status: Chronic (4) HTN (hypertension) Status: Chronic (5) COPD (chronic obstructive pulmonary disease) Status: Chronic (6) Alcohol abuse Status: Chronic (7) Tobacco abuse Status: Acute - Respiratory Orders Smoking Cessation: Smoking cessation has been advised. For more information, call the [place] Tobacco Quit Line at 9-636-MLRD-NOW. - Services Needed Following services are medically necessary services: Nursing, Home Health Aide, Home Infusion - Transfer Medications Prescriptions: Ertapenem [INVanz] 1,000 mg IVPB DAILY #28 vial OxyCODONE Immed Rel [Roxicodone 5 MG] 5 mg PO Q8H PRN 7 Days #21 tablet PRN Reason: Mild To Moderate Pain Home Medications: Albuterol Sulfate [Albuterol Inhaler] 2 puff IH Q4HR PRN 04/06/16 [History] [place]-3/Dha/Epa/Fish Oil [Fish Oil 1,000 mg Softgel] 2,000 mg PO BID 04/06/16 [History] Omeprazole [PriLOSEC] 40 mg PO DAILY 04/06/16 [History] Loratadine [Claritin] 10 mg PO DAILY 12/21/16 [History] Pregabalin [Lyrica] 150 mg PO TID 12/21/16 [History] diazePAM [Valium] 10 mg PO 2-3XD PRN 09/05/17 [History] Atorvastatin [Lipitor] 40 mg PO HS 03/13/18 [History] Collagenase Oint [Santyl] 1 appl TP BID 03/13/18 [History] Fluticasone Propionate Nasal [Flonase] 1 spr NS BID 03/13/18 [History] risperiDONE [Risperdal] 2 mg PO QAM 03/13/18 [History] Ibuprofen [Motrin] 600 mg PO BID PRN 10/08/18 [History] Meloxicam [Mobic] 15 mg PO DAILY 10/08/18 [History] Metformin HCl 500 mg PO BIDWM 10/08/18 [History] Metoprolol Succinate [Toprol Xl] 100 mg PO BID 10/08/18 [History] Multivitamin [One Daily] 1 tab PO QAM 10/08/18 [History] Quinapril HCl [Accupril] 40 mg PO DAILY 10/08/18 [History] Sennosides/Docusate Sodium [Senna Plus] 1 tab PO DAILY PRN 10/08/18 [History] glipiZIDE [Glipizide] 10 mg PO BID 10/08/18 [History] hydroCHLOROthiazide [Hydrochlorothiazide] 25 mg PO DAILY 10/08/18 [History] risperiDONE [Risperdal] 3 mg PO HS 10/08/18 [History] Ertapenem [INVanz] 1,000 mg IVPB DAILY #28 vial 10/11/18 [Rx] OxyCODONE Immed Rel [Roxicodone 5 MG] 5 mg PO Q8H PRN 7 Days #21 tablet 10/11/18 [Rx] Allergies/Adverse Reactions: Allergy/AdvReac Type Severity Reaction Status Date / Time hydrocodone [From Vicodin] AdvReac Severe Nausea Verified 10/08/18 12:59 cephalexin [From Keflex] AdvReac Vomiting Verified 10/08/18 12:59 codeine AdvReac Confusion Verified 10/08/18 12:59 morphine AdvReac Rash Verified 10/08/18 12:59 Certification: Further, I certify that my clinical findings support that this patient is homebound (i.e. absences from home require considerable and taxing effort and are for medical reasons or alevism services or infrequently or short duration when for other reasons) because: Homebound Reason: Patient requires assistance of a person or device to safely leave home Attestation: My signature below is to certify that this patient is under my care and that I, or nurse practitioner, or a physician's events and promotions assistant working with me, has a [id number] encounter with this patient.
[2018-10-11] MEDS ORDERED: Aminoglycoside Consult 1 EACH MC ONE (16:59)
== END 2018-10-11 17:00 | disposition home health service (06) | DRG 361 ==
LOC: 3ANU 14:33 → EMEROOARM 14:33 → SUATTDRO 16:57 → 3ANU 19:12
PROVIDERS: ADMIT Internal Medicine Nephrology; ATTEND Hospitalist

== ENCOUNTER 2018-12-09 11:05 | Inpatient (IN) ==
--- NOTE | 2018-12-09 11:32 | Emergency Department Note ---
Disposition Clinical Impression: Diabetic ulcer of left lower leg Diabetic ulcer of right heel Qualifiers: Diabetes mellitus type: type 2 Non-pressure ulcer stage: unspecified non- pressure ulcer stage Qualified Code(s): E11.621 - Type 2 diabetes mellitus with foot ulcer; L97.419 - Non-pressure chronic ulcer of right heel and midfoot with unspecified severity Disposition: Admitted As Inpatient Condition: Good Referrals: Froylan Guido MD [Primary Care Provider] - Time of Disposition: 13:24 General Adult HPI - General Chief complaint: ED General Medical Stated complaint: BLE necrosis Time Seen by Provider: 12/09/18 11:18 Source: patient Limitations: no limitations Nursing Notes Reviewed: Yes Vital Signs Reviewed: Yes - History of Present Illness HPI Narrative: 48yo male presents from wound clinic for continued evaluation. Patient had surgery 3d ago on LLE lateral aspect, wound vac was in place until removed today by the wound clinic. Since surgery, he has had progressive LLE pain, worse today. He presented to the outpatient wound clinic for evaluation who referred him to the ED for IV antibiotics, admission, and surgical debridement. Patient has history of difficulties with wound healing previously requiring PICC line for outpatient IV antibodies. PMH: DM, BLE chronic wounds. Hx LLE MRSA. Wound care physician: Dr. Bower ROS: Positive: Pain in the left lateral lower extremity Negative: Fever, chills, nausea, vomiting, chest pain, palpitations, dyspnea, diaphoresis, trauma to the wound Pain Scale: 9 - Related Data Home Medications Medication Instructions Recorded Confirmed Albuterol Sulfate [Proventil 2 puff IH Q4HR PRN 04/06/16 12/05/18 Inhaler] [place]-3/Dha/Epa/Fish Oil [Fish Oil 2,000 mg PO BID 04/06/16 12/05/18 1,000 mg Softgel] Omeprazole [PriLOSEC] 40 mg PO DAILY 04/06/16 12/05/18 Loratadine [Claritin] 10 mg PO DAILY 12/21/16 12/05/18 Pregabalin [Lyrica] 150 mg PO TID 12/21/16 12/05/18 diazePAM [Valium] 10 mg PO 2-3XD PRN 09/05/17 12/05/18 Atorvastatin [Lipitor] 40 mg PO HS 03/13/18 12/05/18 Collagenase Oint [Santyl] 1 appl TP BID 03/13/18 11/06/18 Fluticasone Propionate Nasal 1 spr NS BID 03/13/18 12/05/18 [Flonase] risperiDONE [Risperdal] 2 mg PO QAM 03/13/18 12/05/18 Ibuprofen [Motrin] 600 mg PO BID PRN 10/08/18 12/05/18 Meloxicam [Mobic] 15 mg PO DAILY 10/08/18 12/05/18 Metformin HCl 500 mg PO BIDWM 10/08/18 12/05/18 Metoprolol Succinate [Toprol Xl] 100 mg PO BID 10/08/18 12/05/18 Multivitamin [One Daily] 1 tab PO QAM 10/08/18 12/05/18 Quinapril HCl [Accupril] 40 mg PO DAILY 10/08/18 12/05/18 Sennosides/Docusate Sodium [Senna 1 tab PO DAILY PRN 10/08/18 12/05/18 Plus] glipiZIDE [Glipizide] 10 mg PO BID 10/08/18 12/05/18 hydroCHLOROthiazide 25 mg PO DAILY 10/08/18 12/05/18 [Hydrochlorothiazide] risperiDONE [Risperdal] 3 mg PO HS 10/08/18 12/05/18 Previous Rx's Medication Instructions Recorded Ertapenem [INVanz] 1,000 mg IVPB DAILY #28 vial 10/11/18 Ondansetron ODT [Zofran ODT] 4 mg SL Q8HR PRN #12 tab.rapdis 12/05/18 Oxycodone HCl/Acetaminophen 1 each PO Q4-6H PRN 2 Days #8 12/05/18 [Percocet 5-325 mg Tablet] tablet Allergies Allergy/AdvReac Type Severity Reaction Status Date / Time hydrocodone [From Vicodin] AdvReac Severe Nausea, Verified 11/06/18 12:51 Vomiting, Hives Amoxicillin AdvReac Vomiting Verified 11/06/18 12:51 cephalexin [From Keflex] AdvReac Vomiting Verified 11/06/18 12:51 codeine AdvReac Confusion, Verified 11/06/18 12:51 GI Upset morphine AdvReac Rash, Verified 11/05/18 11:09 Hives, Vomiting All systems ED: reviewed and negative except as stated. Review of Systems: As Per HPI Past Medical History - Past Medical History Medical history: Reports: arthritis, COPD, diabetes, GERD, hypertension Surgical history: Reports: orthopedic, other, other Psychiatric history: Reports: anxiety, depression - Social History Smoking Status: Current every day smoker Smokeless Tobacco Status: No Alcohol use: Reports: heavy Drug use: Reports: none Physical Exam Vital Signs Reviewed General: Patient is alert, oriented, and in no acute distress. Head: atraumatic, normocephalic Eye: normal appearance, PERRL, EOMI, no scleral icterus, no conjunctival injection ENT: mucous membranes moist, normal external ear exam Neck: normal inspection, trachea midline, full ROM Chest: normal inspection, symmetric chest rise Respiratory: Good respiratory effort. Bilateral breath sounds are clear without wheezing, crackles, or rhonchi. Cardiovascular: Regular rate and rhythm. No clicks, rubs, gallops, or murmors. Normal heart sounds. Bilateral dorsalis pedis pulses 2/4 equal. Brisk capillary refill in bilateral toes. Abdomen: Bowel sounds present normoactive. Abdomen is soft, nondistended, and nontender. No guarding or rebound. No organomegaly noted. Musculoskeletal: Spontaneously moving all extremities. Skin: warm. Right heel has approximate 5 cm diameter ulcer with central necrosis. Left lateral mid to distal leg has approximate 6 x 10 cm ulceration with central necrosis, foul odor. Neuro: GCS 15. No focal neurologic deficits observed. Psych: Patient's affect is appropriate for situation. - General Limitations: no limitations General appearance: alert, in no apparent distress Course Course Narrative: Operative note from 12/05/18 for excisional debridement of left wound with debridement of peroneal tendon with application of graft and neox pham/PRP injection, performed by Dr. Bower. Discharged home with percocet 5/235 and zofran. Discussed the patient with application systems engineer Podiatry, Dr. Gilliam. He will speak with Dr. Bower. Consult placed. I do not know if there surgical debridement planned for today. Will place NPO with maintenance fluids to protect the option for OR today. Serum hematology shows no leukocytosis or leukocytopenia. Serum chemistry shows normal renal function. Patient has mild elevation in ESR and CRP. X-ray right foot and left tib-fib show no suspicion for osteomyelitis and no subcutaneous gas. Patient has received fentanyl 50 g followed by fentanyl 100 g for pain control. He received empiric antibiotics of vancomycin and Zosyn; concern for MRSA, pseudomonas, anaerobes I discussed the above with the admitting physician, Dr. Potter, who agrees to accept the patient with continued evaluation with podiatry following. Foot X-Ray 12/09/18 12:02 IMPRESSION: No acute bony abnormality. If there is high clinical concern for acute osteomyelitis, consider further evaluation with MRI. D/ / Bryan Fuentes / Bryan Fuentes Interpreting Provider: Bryan Fuentes Tibia/Fibula X-Ray 12/09/18 12:02 IMPRESSION: No osteomyelitis is identified. Degenerative changes seen at the ankle joint with calcaneal spurring noted. Degenerative changes in the knees as well. D/ / Cm Aleman MD / Cm Aleman MD Interpreting Provider: Cm Aleman MD Vital Signs Temperature 98.5 F 12/09/18 11:13 Pulse Rate 95 12/09/18 11:13 Respiratory Rate 20 12/09/18 11:13 Blood Pressure 122/80 12/09/18 11:13 O2 Sat by Pulse Oximetry 95 12/09/18 11:13 Temperature 98.5 F 12/09/18 11:13 Pulse Rate 64 12/09/18 13:20 Respiratory Rate 14 12/09/18 13:20 Blood Pressure 127/61 12/09/18 13:20 O2 Sat by Pulse Oximetry 100 12/09/18 13:20 Oxygen Delivery Oxygen Delivery Room Air Medical Decision Making - Lab Data Result diagrams: 12/09/18 11:34 12/09/18 11:34 Lab Results 12/09/18 12/09/18 12/09/18 Range/Units 11:34 11:34 11:55 WBC 7.7 (4.3-11.1) K/mcL RBC 3.54 L (4.19-5.50) M/mcL Hgb 11.6 L (12.9-16.9) g/dL Hct 35.5 L (37.5-50.1) % MCV 100.3 H (83.0-100.0) fL MCH 32.8 (28.0-33.3) pg MCHC 32.7 (31.6-35.5) g/dL RDW 13.9 (11.5-14.5) % Plt Count 121 L (140-400) K/mcL MPV 9.7 (9.4-12.4) fL Immature Gran % 0.3 (0-4) % Seg Neutrophils % 61.5 % Lymphocytes % 23.2 % Monocytes % 13.2 % Eosinophils % 1.4 % Basophils % 0.4 % Neutrophils # 4.7 (1.6-8.9) K/mcL Lymphocytes # 1.8 (0.6-4.6) K/mcL Monocytes # 1.0 (0.0-1.3) K/mcL Eosinophils # 0.1 (0.0-0.6) K/mcL Basophils # 0.0 (0.0-0.2) K/mcL ESR 55 H (0-10) mm/hr Sodium 139 (136-145) mEq/L Potassium 4.1 (3.5-5.1) mEq/L Chloride 106 (98-107) mEq/L Carbon Dioxide 28 (23-29) mEq/L BUN 14 (6-20) mg/dL Creatinine 0.89 (0.70-1.30) mg/dL Est GFR ( Amer) > 60 (> 60) Est GFR (Non-Af Amer) > 60 (> 60) BUN/Creatinine Ratio 16 (6-26) Glucose 110 H (70-105) mg/dL Calculated Osmolality 289 (280-300) Lactic Acid (0.5-2.2) mmol/L Calcium 8.8 (8.6-10.3) mg/dL C-Reactive Protein 34 H (Less than 10) mg/L 12/09/18 Range/Units 11:55 WBC (4.3-11.1) K/mcL RBC (4.19-5.50) M/mcL Hgb (12.9-16.9) g/dL Hct (37.5-50.1) % MCV (83.0-100.0) fL MCH (28.0-33.3) pg MCHC (31.6-35.5) g/dL RDW (11.5-14.5) % Plt Count (140-400) K/mcL MPV (9.4-12.4) fL Immature Gran % (0-4) % Seg Neutrophils % % Lymphocytes % % Monocytes % % Eosinophils % % Basophils % % Neutrophils # (1.6-8.9) K/mcL Lymphocytes # (0.6-4.6) K/mcL Monocytes # (0.0-1.3) K/mcL Eosinophils # (0.0-0.6) K/mcL Basophils # (0.0-0.2) K/mcL ESR (0-10) mm/hr Sodium (136-145) mEq/L Potassium (3.5-5.1) mEq/L Chloride (98-107) mEq/L Carbon Dioxide (23-29) mEq/L BUN (6-20) mg/dL Creatinine (0.70-1.30) mg/dL Est GFR ( Amer) (> 60) Est GFR (Non-Af Amer) (> 60) BUN/Creatinine Ratio (6-26) Glucose (70-105) mg/dL Calculated Osmolality (280-300) Lactic Acid 1.4 (0.5-2.2) mmol/L Calcium (8.6-10.3) mg/dL C-Reactive Protein (Less than 10) mg/L
[2018-12-09] MEDS ORDERED: *HR* FentaNYL (PF) 100 MCG/2 ML VIAL IVP ONE ×2 (11:34→12:50)
--- NOTE | 2018-12-09 12:07 | Emergency Department Note ---
Disposition Clinical Impression: Diabetic ulcer of left lower leg Diabetic ulcer of right heel Qualifiers: Diabetes mellitus type: type 2 Non-pressure ulcer stage: unspecified non- pressure ulcer stage Qualified Code(s): E11.621 - Type 2 diabetes mellitus with foot ulcer Disposition: Admitted As Inpatient Condition: Good Referrals: Froylan Guido MD [Primary Care Provider] - Time of Disposition: 13:11 General Adult HPI - General Chief complaint: ED General Medical Stated complaint: BLE necrosis Time Seen by Provider: 12/09/18 11:18 Source: patient Limitations: no limitations - History of Present Illness Pain Scale: 9 - Related Data Home Medications Medication Instructions Recorded Confirmed Albuterol Sulfate [Proventil 2 puff IH Q4HR PRN 04/06/16 12/09/18 Inhaler] [place]-3/Dha/Epa/Fish Oil [Fish Oil 2,000 mg PO BID 04/06/16 12/09/18 1,000 mg Softgel] Omeprazole [PriLOSEC] 40 mg PO DAILY 04/06/16 12/09/18 Loratadine [Claritin] 10 mg PO DAILY 12/21/16 12/09/18 Pregabalin [Lyrica] 150 mg PO TID 12/21/16 12/09/18 diazePAM [Valium] 10 mg PO 2-3XD PRN 09/05/17 12/09/18 Atorvastatin [Lipitor] 40 mg PO HS 03/13/18 12/09/18 Collagenase Oint [Santyl] 1 appl TP BID 03/13/18 12/09/18 Fluticasone Propionate Nasal 1 spr NS BID 03/13/18 12/09/18 [Flonase] risperiDONE [Risperdal] 2 mg PO QAM 03/13/18 12/09/18 Ibuprofen [Motrin] 600 mg PO BID PRN 10/08/18 12/09/18 Meloxicam [Mobic] 15 mg PO DAILY 10/08/18 12/09/18 Metformin HCl 500 mg PO BIDWM PRN 10/08/18 12/09/18 Metoprolol Succinate [Toprol Xl] 100 mg PO BID 10/08/18 12/09/18 Multivitamin [One Daily] 1 tab PO QAM 10/08/18 12/09/18 Quinapril HCl [Accupril] 40 mg PO DAILY 10/08/18 12/09/18 Sennosides/Docusate Sodium [Senna 1 tab PO DAILY PRN 10/08/18 12/09/18 Plus] glipiZIDE [Glipizide] 10 mg PO BID 10/08/18 12/09/18 hydroCHLOROthiazide 25 mg PO DAILY 10/08/18 12/09/18 [Hydrochlorothiazide] risperiDONE [Risperdal] 3 mg PO HS 10/08/18 12/09/18 Previous Rx's Medication Instructions Recorded Ertapenem [INVanz] 1,000 mg IVPB DAILY #28 vial 10/11/18 Ondansetron ODT [Zofran ODT] 4 mg SL Q8HR PRN #12 tab.rapdis 12/05/18 Oxycodone HCl/Acetaminophen 1 each PO Q4-6H PRN 2 Days #8 12/05/18 [Percocet 5-325 mg Tablet] tablet Allergies Allergy/AdvReac Type Severity Reaction Status Date / Time hydrocodone [From Vicodin] AdvReac Severe Nausea, Verified 11/06/18 12:51 Vomiting, Hives Amoxicillin AdvReac Vomiting Verified 11/06/18 12:51 cephalexin [From Keflex] AdvReac Vomiting Verified 11/06/18 12:51 codeine AdvReac Confusion, Verified 11/06/18 12:51 GI Upset morphine AdvReac Rash, Verified 11/05/18 11:09 Hives, Vomiting Past Medical History - Past Medical History Medical history: Reports: arthritis, COPD, diabetes, GERD, hypertension Surgical history: Reports: orthopedic, other, other Psychiatric history: Reports: anxiety, depression - Social History Smoking Status: Current every day smoker Smokeless Tobacco Status: No Alcohol use: Reports: heavy Drug use: Reports: none Physical Exam - General Limitations: no limitations General appearance: alert, in no apparent distress Course Vital Signs Temperature 98.5 F 12/09/18 11:13 Pulse Rate 95 12/09/18 11:13 Respiratory Rate 20 12/09/18 11:13 Blood Pressure 122/80 12/09/18 11:13 O2 Sat by Pulse Oximetry 95 12/09/18 11:13 Temperature 98.5 F 12/09/18 11:13 Pulse Rate 64 12/09/18 13:20 Respiratory Rate 14 12/09/18 13:20 Blood Pressure 127/61 12/09/18 13:20 O2 Sat by Pulse Oximetry 100 12/09/18 13:20 Oxygen Delivery Oxygen Delivery Room Air Medical Decision Making - Lab Data Result diagrams: 12/09/18 11:34 12/09/18 11:34 Lab Results 12/09/18 12/09/18 12/09/18 Range/Units 11:34 11:34 11:55 WBC 7.7 (4.3-11.1) K/mcL RBC 3.54 L (4.19-5.50) M/mcL Hgb 11.6 L (12.9-16.9) g/dL Hct 35.5 L (37.5-50.1) % MCV 100.3 H (83.0-100.0) fL MCH 32.8 (28.0-33.3) pg MCHC 32.7 (31.6-35.5) g/dL RDW 13.9 (11.5-14.5) % Plt Count 121 L (140-400) K/mcL MPV 9.7 (9.4-12.4) fL Immature Gran % 0.3 (0-4) % Seg Neutrophils % 61.5 % Lymphocytes % 23.2 % Monocytes % 13.2 % Eosinophils % 1.4 % Basophils % 0.4 % Neutrophils # 4.7 (1.6-8.9) K/mcL Lymphocytes # 1.8 (0.6-4.6) K/mcL Monocytes # 1.0 (0.0-1.3) K/mcL Eosinophils # 0.1 (0.0-0.6) K/mcL Basophils # 0.0 (0.0-0.2) K/mcL ESR 55 H (0-10) mm/hr Sodium 139 (136-145) mEq/L Potassium 4.1 (3.5-5.1) mEq/L Chloride 106 (98-107) mEq/L Carbon Dioxide 28 (23-29) mEq/L BUN 14 (6-20) mg/dL Creatinine 0.89 (0.70-1.30) mg/dL Est GFR ( Amer) > 60 (> 60) Est GFR (Non-Af Amer) > 60 (> 60) BUN/Creatinine Ratio 16 (6-26) Glucose 110 H (70-105) mg/dL Calculated Osmolality 289 (280-300) Lactic Acid (0.5-2.2) mmol/L Calcium 8.8 (8.6-10.3) mg/dL C-Reactive Protein 34 H (Less than 10) mg/L 12/09/18 Range/Units 11:55 WBC (4.3-11.1) K/mcL RBC (4.19-5.50) M/mcL Hgb (12.9-16.9) g/dL Hct (37.5-50.1) % MCV (83.0-100.0) fL MCH (28.0-33.3) pg MCHC (31.6-35.5) g/dL RDW (11.5-14.5) % Plt Count (140-400) K/mcL MPV (9.4-12.4) fL Immature Gran % (0-4) % Seg Neutrophils % % Lymphocytes % % Monocytes % % Eosinophils % % Basophils % % Neutrophils # (1.6-8.9) K/mcL Lymphocytes # (0.6-4.6) K/mcL Monocytes # (0.0-1.3) K/mcL Eosinophils # (0.0-0.6) K/mcL Basophils # (0.0-0.2) K/mcL ESR (0-10) mm/hr Sodium (136-145) mEq/L Potassium (3.5-5.1) mEq/L Chloride (98-107) mEq/L Carbon Dioxide (23-29) mEq/L BUN (6-20) mg/dL Creatinine (0.70-1.30) mg/dL Est GFR ( Amer) (> 60) Est GFR (Non-Af Amer) (> 60) BUN/Creatinine Ratio (6-26) Glucose (70-105) mg/dL Calculated Osmolality (280-300) Lactic Acid 1.4 (0.5-2.2) mmol/L Calcium (8.6-10.3) mg/dL C-Reactive Protein (Less than 10) mg/L Attestation Statement - Attestation Attestation: I examined this patient and my medical decision-making was reviewed with the Resident Physician. I agree with the documented findings, disposition and treatment plan as described except to the extent set forth below. Patient presents to the ED with a chief complaint leg wounds. Patient has a burn to the left lateral malhotra. He had a private performed last . Become more painful. He went to wound care today and they took the wound VAC off. They sent him to the ED for admission. On examination is a large open wound to the left inferior, lateral malhotra. Purulent drainage and necrotic tissue. Foul-smelling. Plan. Wound culture sent. An aerobic culture sent. IV antibiotics. Basic labs. X-ray to rule out subcutaneous gas. Admit. Imaging shows no osteomyelitis or subcutaneous gas. Sedimentation rate in the 50s. IV antibiotics started. He is admitted to medicine with a podiatry consult. Foot X-Ray 12/09/18 12:02 IMPRESSION: No acute bony abnormality. If there is high clinical concern for acute osteomyelitis, consider further evaluation with MRI. D/ / Bryan Fuentes / Bryan Fuentes Interpreting Provider: Bryan Fuentes Tibia/Fibula X-Ray 12/09/18 12:02 IMPRESSION: No osteomyelitis is identified. Degenerative changes seen at the ankle joint with calcaneal spurring noted. Degenerative changes in the knees as well. D/ / Cm Aleman MD / Cm Aleman MD Interpreting Provider: Cm Aleman MD
[2018-12-09 12:27] LABS: BUN/Creatinine Ratio 16 (6-26); Blood Urea Nitrogen 14 mg/dL (6-20); C-Reactive Protein 34 mg/L (Less than 10); Calcium 8.8 mg/dL (8.6-10.3); Carbon Dioxide 28 mEq/L (23-29); Chloride 106 mEq/L (98-107); Glucose 110 mg/dL (70-105); Osmolality,Calculated 289 (280-300); Potassium 4.1 mEq/L (3.5-5.1); Sodium 139 mEq/L (136-145); eGFR For African Americans > 60 (> 60); eGFR For Non-African Americans > 60 (> 60)
[2018-12-09 12:29] LABS: Basophils % 0.4 %; Eosinophils # 0.1 K/mcL (0.0-0.6); Eosinophils % 1.4 %; Hematocrit 35.5 % (37.5-50.1); Hemoglobin 11.6 g/dL (12.9-16.9); Immature Granulocytes % 0.3 % (0-4); Lymphocytes # 1.8 K/mcL (0.6-4.6); Lymphocytes % 23.2 %; Mean Corpuscular HGB Conc 32.7 g/dL (31.6-35.5); Mean Corpuscular Hemoglobin 32.8 pg (28.0-33.3); Mean Corpuscular Volume 100.3 fL (83.0-100.0); Mean Platelet Volume 9.7 fL (9.4-12.4); Monocytes % 13.2 %; Neutrophils # 4.7 K/mcL (1.6-8.9); Platelet Count 121 K/mcL (140-400); Red Blood Count 3.54 M/mcL (4.19-5.50); Red Cell Distribution Width 13.9 % (11.5-14.5); Segmented Neutrophils % 61.5 %; White Blood Count 7.7 K/mcL (4.3-11.1)
[2018-12-09] MEDS ORDERED: Piperacillin/Tazobactam 3.375 GM in 0.9 % Sodium Chloride Mini Bag 100 ML IVPB ONE (13:00)
[2018-12-09] MEDS: 0.9 % Sodium Chloride 1,000 ML IVC SCH (13:19)
[2018-12-09] MEDS ORDERED: Naloxone 0.4 MG/ML INJ IVP PRN (14:46)
[2018-12-09] MEDS ORDERED: Ondansetron 4 MG/2 ML VIAL IVP PRN (14:51)
[2018-12-09] MEDS ORDERED: Acetaminophen 325 MG TABLET PO PRN (14:51)
[2018-12-09] MEDS ORDERED: Sennosides/Docusate Sodium TABLET PO PRN (14:58)
[2018-12-09] MEDS ORDERED: Gadolinium Contrast Agent (WT Based) IV PRN (15:04)
--- NOTE | 2018-12-09 15:17 | Internal Med History&Physical ---
<Valentino Stewart - Last Filed: 12/09/18 16:31> Date of Encounter: 12/09/18 Internal Medicine - H&P: HPI History of present illness: Mr. Parish is a 48 year old male Internal Medicine - H&P: Meds Albuterol Sulfate [Proventil Inhaler] 2 puff IH Q4HR PRN 04/06/16 [History] [place]-3/Dha/Epa/Fish Oil [Fish Oil 1,000 mg Softgel] 2,000 mg PO BID 04/06/16 [History] Omeprazole [PriLOSEC] 40 mg PO DAILY 04/06/16 [History] Loratadine [Claritin] 10 mg PO DAILY 12/21/16 [History] Pregabalin [Lyrica] 150 mg PO TID 12/21/16 [History] diazePAM [Valium] 10 mg PO 2-3XD PRN 09/05/17 [History] Atorvastatin [Lipitor] 40 mg PO HS 03/13/18 [History] Collagenase Oint [Santyl] 1 appl TP BID 03/13/18 [History] Fluticasone Propionate Nasal [Flonase] 1 spr NS BID 03/13/18 [History] risperiDONE [Risperdal] 2 mg PO QAM 03/13/18 [History] Ibuprofen [Motrin] 600 mg PO BID PRN 10/08/18 [History] Meloxicam [Mobic] 15 mg PO DAILY 10/08/18 [History] Metformin HCl 500 mg PO BIDWM PRN 10/08/18 [History] Metoprolol Succinate [Toprol Xl] 100 mg PO BID 10/08/18 [History] Multivitamin [One Daily] 1 tab PO QAM 10/08/18 [History] Quinapril HCl [Accupril] 40 mg PO DAILY 10/08/18 [History] Sennosides/Docusate Sodium [Senna Plus] 1 tab PO DAILY PRN 10/08/18 [History] glipiZIDE [Glipizide] 10 mg PO BID 10/08/18 [History] hydroCHLOROthiazide [Hydrochlorothiazide] 25 mg PO DAILY 10/08/18 [History] risperiDONE [Risperdal] 3 mg PO HS 10/08/18 [History] Ertapenem [INVanz] 1,000 mg IVPB DAILY #28 vial 10/11/18 [Rx] Ondansetron ODT [Zofran ODT] 4 mg SL Q8HR PRN #12 tab.rapdis 12/05/18 [Rx] Oxycodone HCl/Acetaminophen [Percocet 5-325 mg Tablet] 1 each PO Q4-6H PRN 2 Days #8 tablet 12/05/18 [Rx] Allergy/AdvReac Type Severity Reaction Status Date / Time hydrocodone [From Vicodin] AdvReac Severe Nausea, Verified 11/06/18 12:51 Vomiting, Hives Amoxicillin AdvReac Vomiting Verified 11/06/18 12:51 cephalexin [From Keflex] AdvReac Vomiting Verified 11/06/18 12:51 codeine AdvReac Confusion, Verified 11/06/18 12:51 GI Upset morphine AdvReac Rash, Verified 11/05/18 11:09 Hives, Vomiting All Systems PM: A 10-system review of systems was performed and is negative for pertinent findings except as documented above in the HPI. - Constitutional Vitals: Temp Pulse Resp BP Pulse Ox 98.5 F 64 14 127/61 100 12/09/18 11:13 12/09/18 13:20 12/09/18 13:20 12/09/18 13:20 12/09/18 13:20 Internal Med - H&P Results - Labs CBC & Chem 7: 12/09/18 11:34 12/09/18 11:34 Labs: Short CBC 12/09/18 Range/Units 11:34 WBC 7.7 (4.3-11.1) K/mcL Hgb 11.6 L (12.9-16.9) g/dL Hct 35.5 L (37.5-50.1) % Plt Count 121 L (140-400) K/mcL Neutrophils # 4.7 (1.6-8.9) K/mcL BMP 12/09/18 11:34 Sodium 139 Potassium 4.1 Chloride 106 Carbon Dioxide 28 BUN 14 Creatinine 0.89 Glucose 110 H Calcium 8.8 - Impressions ITS Impressions Foot X-Ray 12/09/18 12:02 IMPRESSION: No acute bony abnormality. If there is high clinical concern for acute osteomyelitis, consider further evaluation with MRI. D/ / Bryan Fuentes / Bryan Fuentes Interpreting Provider: Bryan Fuentes Tibia/Fibula X-Ray 12/09/18 12:02 IMPRESSION: No osteomyelitis is identified. Degenerative changes seen at the ankle joint with calcaneal spurring noted. Degenerative changes in the knees as well. D/ / Cm Aleman MD / Cm Aleman MD Interpreting Provider: Cm Aleman MD - Time Spent With Patient Total time spent is greater than 50% in coordination of care (as documented) at patient's floor/unit and/or counseling patient: - Attending Attestation I have seen and independently assessed this patient ad I agree with plan as documented Plan Foot ulcer r/o ostepmyelitis. ER and CRP elevated. Obtain foot MRI to r/o osteomyelitis. Continue vanc and zosyn. Obtain blood and wound cultures Alcohol abuse. [facility] protocol <Jerry Drummond L - Last Filed: 12/09/18 18:23> Date of Encounter: 12/09/18 Time of Encounter: 15:11 (\) Internal Medicine - H&P: HPI Chief complaint: Diabetic foot ulcer History of present illness: Mr. Parish is a 48 year old male with a past medical history of diabetes, hypertension, GERD. Presented today from wound clinic for continued evaluation. Patient had surgery on his left lower extremity, lateral aspect of his ankle on 12/05/18. Surgery was for a nonhealing diabetic ankle ulcer. After surgery he was sent home with wound VAC in place. He reports that pain increased in his ankle from time of surgery until today. He presented to outpatient clinic earlier today where he was evaluated and sent to the emergency room to be admitted for further treatment. He has had multiple issues with poorly healing ulcers on both feet and left ankle in the past. Previously requiring PICC line for outpatient IV antibiotics, and skin grafts for poorly healing ulcers. He de nies any systemic symptoms such as fever or chills. When seen in the emergency department patient was sitting comfortably in bed. States that he is still able to ambulate on his own. 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 Psychiatric history: anxiety, depression - Past Surgical History Surgical History: orthopedic, other, other Additional surgical history: graft placement to left plantar foot X5 - Social History Smoking Status: Current every day smoker Smokeless Tobacco Status: No Alcohol use: heavy Drug use: none - Family History Mother Adopted: No Living Status: Still Living Hx Family Cardiac Disorders: Yes Hx Family Respiratory Disorders: Yes Hx Family Cancer: No Hx Family GI Disorders: No Hx Family Endocrine Disorder: No Hx Family Neuromuscular Disorders: No Hx Family Neurologic Disorders: No Hx Family HEENT Disorders: No Hx Family Autoimmune Disorders: No Father Adopted: No Family Member Ethnicity: Non- Living Status: Hx Family Cardiac Disorders: Yes Hx Family Respiratory Disorders: Yes Hx Family Cancer: Yes Hx Family GI Disorders: No Hx Family Endocrine Disorder: Yes Hx Family Neuromuscular Disorders: No Hx Family Neurologic Disorders: No Hx Family HEENT Disorders: No Hx Family Autoimmune Disorders: No All Systems PM: A 10-system review of systems was performed and is negative for pertinent findings except as documented above in the HPI. Review of systems: Constitutional: Denies fevers, chills, weight loss, generalized fatigue Head/Neck: Denies [place], neck stiffness EENT: Denies vision changes/blurriness, rhinorrhea, congestion, sore throat CVS: Denies chest pain, palpitations, [place], orthopnea, edema, PND Pulm: Denies SOB, cough, sputum, hemoptysis, wheezing GI: Denies abdominal pain, nausea, vomiting, diarrhea, constipation, melena, hematemasis : Denies dysuria, increased frequency, urgency, hematuria Heme: Denies ease of bleeding or bruising MSK: Denies joint pain, limited ROM Skin: Reports dry scaly skin below the knee, multiple ulcers on his feet Neuro: Denies [place], paresthesias, focal deficits, ataxia - Constitutional Vitals: Temp Pulse Resp BP Pulse Ox 98.5 F 64 14 127/61 100 12/09/18 11:13 12/09/18 13:20 12/09/18 13:20 12/09/18 13:20 12/09/18 13:20 Exam: Gen: Vitals noted. No acute distress. Eyes: anicteric sclerae, moist conjunctivae; no lid-lag; Pupils equal and reactive to light HENT: Atraumatic, normocephalic; oropharynx clear with moist mucous membranes and no mucosal ulcerations Neck: Trachea midline; supple, no thyromegaly or lymphadenopathy Cardiac: RRR, no murmurs, rubs or gallops, S1/S2 Pulmonary: CTA bilaterally, no wheezes, rales or rhonchi, equal chest expansion Abdomen: soft, nontender, no rigidity or guarding. No masses or hepatosplenomegaly MSK: ROM intact, no joint swelling noted Extremities: no BLE edema, nontender calf, no cyanosis or clubbing. L ankle, lateral side: 10x3 cm open ulcer, sunken, erythemtous, some black tissue, foul- smelling. R heel: 3-4cm round, slwoly healing ulcer, erythemetous edges, black center. Skin: Normal temperature, turgor and texture; no rash, ulcers or subcutaneous nodules. Multiple spider angiomata noted on chest. Neuro: moves all extremities, no focal deficits. Psych: Appropriate mood and behavior. A&Ox3 Internal Med - H&P Results - Labs CBC & Chem 7: 12/09/18 11:34 12/09/18 11:34 Labs: Short CBC 12/09/18 Range/Units 11:34 WBC 7.7 (4.3-11.1) K/mcL Hgb 11.6 L (12.9-16.9) g/dL Hct 35.5 L (37.5-50.1) % Plt Count 121 L (140-400) K/mcL Neutrophils # 4.7 (1.6-8.9) K/mcL BMP 12/09/18 11:34 Sodium 139 Potassium 4.1 Chloride 106 Carbon Dioxide 28 BUN 14 Creatinine 0.89 Glucose 110 H Calcium 8.8 - Impressions ITS Impressions Foot X-Ray 12/09/18 12:02 IMPRESSION: No acute bony abnormality. If there is high clinical concern for acute osteomyelitis, consider further evaluation with MRI. D/ / Bryan Fuentes / Bryan Fuentes Interpreting Provider: Bryan Fuentes Tibia/Fibula X-Ray 12/09/18 12:02 IMPRESSION: No osteomyelitis is identified. Degenerative changes seen at the ankle joint with calcaneal spurring noted. Degenerative changes in the knees as well. D/ / Cm Aleman MD / Cm Aleman MD Interpreting Provider: Cm Aleman MD - Assessment and Plan (1) Osteomyelitis Current Visit: Yes Status: Suspected Assessment and plan: Unhealing Ulcer on L ankle - Hx of diabetes - Surgery on 12/05/18 - Wound vac removed today - Foul smell - ESR 55 - C-reactive protein: 34 Plan: - MRI pending - Podiatry consult Qualifiers: Osteomyelitis type: unspecified type Osteomyelitis location: tibia Laterality: left Qualified Code(s): M86.9 - Osteomyelitis, unspecified (2) Diabetic ulcer of left lower leg Current Visit: Yes Status: Acute Assessment and plan: Unhealing diabetic foot ulcer - L Lateral ankle - Debridement on 12/05/18 - Went home with wound vac - Sent in from wound clinic Plan: - podiatry consult - MRI l foot pending - astrid Hamlin and joelle (3) Alcohol abuse Current Visit: Yes Status: Chronic Assessment and plan: Pt reports alcohol heavy alcohol use - 12-24 cans daily Plan: - Monitor via CIWA protocol - Lorazepam 2mg q4 PRN for CIWA 10-21 (4) Diabetes mellitus Current Visit: No Status: Chronic Assessment and plan: Hx of Diabetes - Controlled with glipizide - A1C 5.2 11/05/18 Plan - Monitor glucose Qualifiers: Diabetes mellitus type: type 2 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 - surgical debridement performed on 12/05/18 - discharged home with wound-vac - Elevated ESR and CRP - Blood and wound cultures pending Plan: - MRI for possible Osteomyelitis - Podiatry consulted - Physical therapy consulted - Astrid lemus - Time Spent With Patient Total time spent is greater than 50% in coordination of care (as documented) at patient's floor/unit and/or counseling patient:
[2018-12-09] MEDS: Pregabalin 75 MG CAPSULE PO SCH ×2 (16:34→21:24)
[2018-12-09] MEDS: *HR* OxyCODONE/APAP 5/325 TABLET PO PRN ×2 (16:35→21:24)
[2018-12-09] MEDS ORDERED: *HR* LORazepam 2 MG/ML VIAL IVP PRN (17:59)
[2018-12-09] MEDS: *HR* Heparin 5,000 UNIT/ML VIAL SQ SCH (18:30)
[2018-12-09] MEDS: Nicotine 21 MG PATCH.TD24 TD SCH (18:31)
[2018-12-09] MEDS ORDERED: NON-FORMULARY MEDICATION 1 EACH EACH (Metoprolol Succinate [Toprol Xl] 100 MG) PO SCH (21:00)
[2018-12-09] MEDS: RisperiDAL 3 MG TABLET PO SCH (21:24)
[2018-12-09] MEDS: Fluticasone Propionate Nasal 50 MCG/SPRAY BOTTLE NS SCH (21:25)
[2018-12-09] MEDS: Metoprolol XL (24 HR) Succ 50 MG TAB.ER.24H PO SCH (23:56)
[2018-12-10] MEDS: 0.9 % Sodium Chloride 1,000 ML IVC SCH ×4 (01:30→23:09)
[2018-12-10 05:40] LABS: Basophils % 0.8 %; Eosinophils # 0.2 K/mcL (0.0-0.6); Eosinophils % 3.8 %; Hematocrit 33.5 % (37.5-50.1); Hemoglobin 10.8 g/dL (12.9-16.9); Immature Granulocytes % 0.2 % (0-4); Lymphocytes # 0.9 K/mcL (0.6-4.6); Lymphocytes % 19.1 %; Mean Corpuscular HGB Conc 32.2 g/dL (31.6-35.5); Mean Corpuscular Hemoglobin 32.3 pg (28.0-33.3); Mean Corpuscular Volume 100.3 fL (83.0-100.0); Monocytes # 0.5 K/mcL (0.0-1.3); Neutrophils # 3.1 K/mcL (1.6-8.9); Platelet Count 114 K/mcL (140-400); Red Blood Count 3.34 M/mcL (4.19-5.50); Segmented Neutrophils % 65.1 %; White Blood Count 4.7 K/mcL (4.3-11.1)
[2018-12-10 05:59] LABS: Alanine Aminotransferase 17 Units/L (7-52); Albumin/Globulin Ratio 0.9 (1.1-2.2); Alkaline Phosphatase 165 Units/L (34-104); Aspartate Amino Transferase 23 Units/L (13-39); BUN/Creatinine Ratio 14 (6-26); Bilirubin,Total 1.1 mg/dL (0.3-1.0); Blood Urea Nitrogen 11 mg/dL (6-20); Calcium 8.8 mg/dL (8.6-10.3); Carbon Dioxide 27 mEq/L (23-29); Chloride 105 mEq/L (98-107); Chol/HDL Ratio 3.4 (0-4.9); Cholesterol 109 mg/dL (< 200); Globulin 3.3 g/dL (2.4-3.5); Glucose 92 mg/dL (70-105); HDL Cholesterol 32 mg/dL (40-59); LDL Cholesterol,Calculated 31 mg/dL (0-99); Magnesium 2.2 mg/dL (1.6-2.6); Osmolality,Calculated 285 (280-300); Phosphorous 3.6 mg/dL (2.7-4.5); Potassium 3.9 mEq/L (3.5-5.1); Sodium 138 mEq/L (136-145); Total Protein 6.3 g/dL (6.4-8.9); Triglycerides 229 mg/dL (< 150); eGFR For African Americans > 60 (> 60); eGFR For Non-African Americans > 60 (> 60)
[2018-12-10] MEDS: *HR* Heparin 5,000 UNIT/ML VIAL SQ SCH ×2 (06:04→19:01)
[2018-12-10] MEDS: *HR* OxyCODONE/APAP 5/325 TABLET PO PRN ×2 (06:04→10:20)
[2018-12-10 06:08] LABS: INR 1.3; Prothrombin Time 14.4 Seconds (9.4-12.1)
[2018-12-10 06:10] LABS: Activated Partial Thrombo Time 53.3 Seconds (26.0-36.0)
--- NOTE | 2018-12-10 07:33 | Internal Med Progress Note ---
<Valentino Stewart - Last Filed: 12/10/18 13:02> Hospitalist Progress Note - Encounter Date of Encounter: 12/10/18 - Exam Vitals: Temp Pulse Resp BP Pulse Ox 98.7 F 76 16 119/72 94 12/10/18 11:12 12/10/18 11:12 12/10/18 11:12 12/10/18 11:12 12/10/18 11:12 - Time Spent with Patient Total time spent is greater than 50% in coordination of care (as documented) at patient's floor/unit and/or counseling patient: Internal Medicine: Result - Labs CBC & Chem 7: 12/10/18 04:03 12/10/18 04:03 Labs: Short CBC 12/10/18 Range/Units 04:03 WBC 4.7 (4.3-11.1) K/mcL Hgb 10.8 L (12.9-16.9) g/dL Hct 33.5 L (37.5-50.1) % Plt Count 114 L (140-400) K/mcL Neutrophils # 3.1 (1.6-8.9) K/mcL BMP 12/10/18 04:03 Sodium 138 Potassium 3.9 Chloride 105 Carbon Dioxide 27 BUN 11 Creatinine 0.77 Glucose 92 Calcium 8.8 Liver Function 12/10/18 Range/Units 04:03 Total Bilirubin 1.1 H (0.3-1.0) mg/dL AST 23 (13-39) Units/L ALT 17 (7-52) Units/L Alkaline Phosphatase 165 H (34-104) Units/L Albumin 3.0 L (3.5-5.7) g/dL - ABG Interpretation ABG results: PT/INR, D-dimer PT 14.4 Seconds (9.4-12.1) H 12/10/18 04:03 Consult Discharge Plan - Plan Referrals: Froylan Guido MD [Primary Care Provider] - - Attending Attestation I have seen and independently assessed this patient ad I agree with plan as documented Plan Non healing Foot ulcer . EsR and CRP elevated. Foot xray showed no evidence of osteomyelitis. Podiatry do not plan for surgical intervention. Continue antibiotics, await cultures. ID recs appreciated for duration of antibiotics Alcohol abuse. CIWA protocol <Bhanu,Jerry L - Last Filed: 12/10/18 16:49> Hospitalist Progress Note - Encounter Date of Encounter: 12/10/18 Time of Encounter: 07:31 - Subjective Interval History: Patient seen and examined. Overnight events. Patient says he did not sleep well because hospital but is comfortable. Really hungry. While. Denies headache, chest pain, shortness of breath, abdominal pain, fever, chills, constipation, diarrhea, change in urination. - Exam Vitals: Temp Pulse Resp BP Pulse Ox 98.5 F 67 16 124/76 95 12/10/18 07:28 12/10/18 07:28 12/10/18 07:28 12/10/18 07:28 12/10/18 07:28 Exam: Gen: Vitals noted. No acute distress. Eyes: anicteric sclerae, moist conjunctivae. Pupils equal, round, and reactive to light HENT: Atraumatic, normocephalic; oropharynx clear with moist mucous membranes and no mucosal ulcerations Neck: Trachea midline; supple, no thyromegaly or lymphadenopathy Cardiac: RRR, no murmurs, rubs or gallops, S1/S2 Pulmonary: CTA bilaterally, no wheezes, rales or rhonchi, equal chest expansion Abdomen: soft, nontender, no rigidity or guarding. No masses or hepatosplenomegaly MSK: ROM intact, no joint swelling noted Extremities: no BLE edema, nontender calf, no cyanosis or clubbing. R and L feet/ankles wrapped in bandages. Clean and dry Skin: Normal temperature, turgor and texture; no rash, ulcers or subcutaneous nodules. Multiple spider angiomata noted on chest. Neuro: moves all extremities, no focal deficits. Psych: Appropriate mood and behavior. A&Ox3 - Assessment and Plan (1) Diabetic ulcer of left lower leg Current Visit: Yes Status: Acute Assessment and Plan: Unhealing diabetic foot ulcer - L Lateral ankle - Debridement on 12/05/18 - Went home with wound vac - Sent in from wound clinic - Podiatry: No surgical intervention at this time, local wound care - Cultures pending Plan: - emperic Vanc and zosyn - ID consult - Wound care consult (2) Osteomyelitis Current Visit: Yes Status: Suspected Assessment and Plan: Unhealing Ulcer on L ankle - Suspected due to unhealing wound - Hx of diabetes - Surgery on 12/05/18 - Wound vac removed today - Foul smell - ESR 55 - C-reactive protein: 34 - No osteomyelitis on X-ray - Podiatry: Local wound care, no surgical intervention at this time Plan: - MRI contraindicated due to lizabeth - Continue to monitor - Infectious disease consult - Wound care consult (3) Alcohol abuse Current Visit: Yes Status: Chronic Assessment and Plan: Pt reports alcohol heavy alcohol use - 12-24 cans daily - CIWA scores trending at 4 Plan: - Monitor via CIWA protocol - Lorazepam 2mg q4 PRN for CIWA 10-21 (4) Diabetes mellitus Current Visit: No Status: Chronic Assessment and Plan: Hx of Diabetes - Controlled with glipizide - A1C 5.2 11/05/18 Plan - Monitor glucose (5) Sleep apnea Current Visit: Yes Status: Acute Assessment and Plan: Hx of sleep apnea - CPAP at night DVT Prophylaxis: Sub Q Heparin - Time Spent with Patient Total time spent is greater than 50% in coordination of care (as documented) at patient's floor/unit and/or counseling patient: Internal Medicine: Result - Labs CBC & Chem 7: 12/10/18 04:03 12/10/18 04:03 Labs: Short CBC 12/09/18 12/10/18 Range/Units 11:34 04:03 WBC 7.7 4.7 (4.3-11.1) K/mcL Hgb 11.6 L 10.8 L (12.9-16.9) g/dL Hct 35.5 L 33.5 L (37.5-50.1) % Plt Count 121 L 114 L (140-400) K/mcL Neutrophils # 4.7 3.1 (1.6-8.9) K/mcL BMP 12/09/18 12/10/18 11:34 04:03 Sodium 139 138 Potassium 4.1 3.9 Chloride 106 105 Carbon Dioxide 28 27 BUN 14 11 Creatinine 0.89 0.77 Glucose 110 H 92 Calcium 8.8 8.8 Liver Function 12/10/18 Range/Units 04:03 Total Bilirubin 1.1 H (0.3-1.0) mg/dL AST 23 (13-39) Units/L ALT 17 (7-52) Units/L Alkaline Phosphatase 165 H (34-104) Units/L Albumin 3.0 L (3.5-5.7) g/dL - ABG Interpretation ABG results: PT/INR, D-dimer PT 14.4 Seconds (9.4-12.1) H 12/10/18 04:03 - Impressions Impressions Foot X-Ray 12/09/18 12:02 IMPRESSION: No acute bony abnormality. If there is high clinical concern for acute osteomyelitis, consider further evaluation with MRI. D/ / Bryan Fuentes / Bryan Fuentes Interpreting Provider: Bryan Fuentes Tibia/Fibula X-Ray 12/09/18 12:02 IMPRESSION: No osteomyelitis is identified. Degenerative changes seen at the ankle joint with calcaneal spurring noted. Degenerative changes in the knees as well. D/ / Cm Aleman MD / Cm Aleman MD Interpreting Provider: Cm Aleman MD <BhanuJerry L - Last Filed: 12/10/18 16:49> (2) Osteomyelitis Qualifiers: Osteomyelitis type: unspecified type Osteomyelitis location: tibia Laterality: left Qualified Code(s): M86.9 - Osteomyelitis, unspecified (4) Diabetes mellitus Qualifiers: Diabetes mellitus type: type 2 Diabetes mellitus skilled nursing insulin use: without skilled nursing use Diabetes mellitus complication status: with skin complications Diabetes mellitus complication detail: with foot ulcer Qualified Code(s): E11.621 - Type 2 diabetes mellitus with foot ulcer; L97.509 - Non- pressure chronic ulcer of other part of unspecified foot with unspecified severity
[2018-12-10] MEDS: hydroCHLOROthiazide 25 MG TABLET PO SCH (10:19)
[2018-12-10] MEDS: Pregabalin 75 MG CAPSULE PO SCH ×3 (10:19→20:32)
[2018-12-10] MEDS: Nicotine 21 MG PATCH.TD24 TD SCH (10:19)
[2018-12-10] MEDS: Metoprolol XL (24 HR) Succ 50 MG TAB.ER.24H PO SCH ×2 (10:20→20:32)
[2018-12-10] MEDS: Lisinopril 20 MG TABLET PO SCH (10:20)
[2018-12-10] MEDS: risperiDONE 1 MG TABLET PO SCH (10:20)
[2018-12-10] MEDS: Fluticasone Propionate Nasal 50 MCG/SPRAY BOTTLE NS SCH ×2 (10:21→20:34)
[2018-12-10] MEDS: Piperacillin/Tazobactam 3.375 GM in 0.9 % Sodium Chloride Mini Bag 100 ML IVPB SCH ×3 (10:21→23:02)
--- NOTE | 2018-12-10 11:08 | Podiatry Consult Note ---
Date of Encounter: 12/10/18 Time of Encounter: 10:59 Assessment and Plan (1) Diabetic ulcer of left lower leg Current visit: Yes Status: Acute Assessment: S/P excisional debridement of left leg, debridement of peroneal tendon, and amniox graft placement with Dr. Bower on 12/05/18 [place] noted to surrounding tissue Necrosis noted to left lateral calf wound bed Malodorous, no active drainage noted WBC 4.7, afebrile ESR 55, CRP 34 XR negative for OM Blood cultures, anaerobic cultures, and wound cultures pending ABIs pending Plan: Discussed with physician, no plan for surgical intervention at this time Local wound care, orders placed, nursing to change Ok to eat, diabetic diet placed Will consider vascular consultation to evaluate if any improvement in blood flow can be made to help improve wound healing once vascular studies return Will continue to follow Impression: XR/XR tibia fibula LT IMPRESSION: No osteomyelitis is identified. Degenerative changes seen at the ankle joint with calcaneal spurring noted. Degenerative changes in the knees as well. D/ / Cm Aleman MD / Cm Aleman MD Interpreting Provider: Cm Aleman MD (2) Diabetic ulcer of right heel Current visit: Yes Status: Acute Assessment: Unstageable diabetic ulcer noted to right lateral calcaneous Necrosis noted to proximal wound bed Distal portion of wound bed beefy red Periwound erythematous WBC 4.7, afebrile, ESR 54, CRP 34 Plan: Discussed with surgeon, no plans for surgical intervention at this time Local wound care, orders placed, nursing to change Will continue to follow Impression: XR/XR foot 3V RT IMPRESSION: No acute bony abnormality. If there is high clinical concern for acute osteomyelitis, consider further evaluation with MRI. D/ / Bryan Fuentes / Bryan Fuentes Interpreting Provider: Bryan Fuentes Qualifiers: Diabetes mellitus type: type 2 Non-pressure ulcer stage: with necrosis of muscle Qualified Code(s): E11.621 - Type 2 diabetes mellitus with foot ulcer; L97.413 - Non-pressure chronic ulcer of right heel and midfoot with necrosis of muscle History of Present Illness Chief complaint: Necrotic ulcerations HPI: Mr. Parish is a 48 year old male who was admitted from wound care through the ER for necrosis of left calf ulcer and right foot ulcer. Patient is known to the podiatry group, follows with Dr. Bower. PMH of COPD, DM II, G GERD, HTN, arthritis, anxiety, depression, and chronic diabetic ulcers. Patient reports smoking half a pack a day, reports drinking 8-9 beers a day. Denies any illicit drug use. Briefly, patient has chronic diabetic ulcers that he has been following in the wound care center for since February of last year. Patient had left lower extremity surgery on 12/05/18 with debridement of left peroneal tendon and application of amniox graft and wound VAC with Dr. Bower. Upon arriving to wound care center on Sunday patient was found to have necrosis of left calf u lceration and right calcaneal ulcer. That time patient was instructed to go to ER for further evaluation. Again, Mr. Parish is a 48 year old male who is consulted to the podiatry group for management of chronic diabetic ulcers. Blood cultures pending, wound cultures pending, anaerobic cultures pending, MR of left lower extremity pending. X-ray of left tib-fib negative for any osteomyelitis. X-ray of right foot negative for any osteomyelitis. WBC 5.2, afebrile. Denies any fevers, chills, nausea, vomiting, or diarrhea. Denies any calf pain, chest pain, or shortness of breath. Reports pain to left lower extremity rating 7 out of 10. No other questions or concerns at this time. 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 Psychiatric history: anxiety, depression - Past Surgical History Surgical History: orthopedic, other, other Additional surgical history: graft placement to left plantar foot X5 - Social History Smoking Status: Current every day smoker Smokeless Tobacco Status: No Alcohol use: heavy, recent Drug use: none - Family History Mother Adopted: No Living Status: Still Living Hx Family Cardiac Disorders: Yes Hx Family Respiratory Disorders: Yes Hx Family Cancer: No Hx Family GI Disorders: No Hx Family Endocrine Disorder: No Hx Family Neuromuscular Disorders: No Hx Family Neurologic Disorders: No Hx Family HEENT Disorders: No Hx Family Autoimmune Disorders: No Father Adopted: No Family Member Ethnicity: Non- Living Status: Hx Family Cardiac Disorders: Yes Hx Family Respiratory Disorders: Yes Hx Family Cancer: Yes Hx Family GI Disorders: No Hx Family Endocrine Disorder: Yes Hx Family Neuromuscular Disorders: No Hx Family Neurologic Disorders: No Hx Family HEENT Disorders: No Hx Family Autoimmune Disorders: No Medications and Allergies Albuterol Sulfate [Proventil Inhaler] 2 puff IH Q4HR PRN 04/06/16 [History] [place]-3/Dha/Epa/Fish Oil [Fish Oil 1,000 mg Softgel] 2,000 mg PO BID 04/06/16 [History] Omeprazole [PriLOSEC] 40 mg PO DAILY 04/06/16 [History] Loratadine [Claritin] 10 mg PO DAILY 12/21/16 [History] Pregabalin [Lyrica] 150 mg PO TID 12/21/16 [History] diazePAM [Valium] 10 mg PO 2-3XD PRN 09/05/17 [History] Atorvastatin [Lipitor] 40 mg PO HS 03/13/18 [History] Collagenase Oint [Santyl] 1 appl TP BID 03/13/18 [History] Fluticasone Propionate Nasal [Flonase] 1 spr NS BID 03/13/18 [History] risperiDONE [Risperdal] 2 mg PO QAM 03/13/18 [History] Ibuprofen [Motrin] 600 mg PO BID PRN 10/08/18 [History] Meloxicam [Mobic] 15 mg PO DAILY 10/08/18 [History] Metformin HCl 500 mg PO BIDWM PRN 10/08/18 [History] Metoprolol Succinate [Toprol Xl] 100 mg PO BID 10/08/18 [History] Multivitamin [One Daily] 1 tab PO QAM 10/08/18 [History] Quinapril HCl [Accupril] 40 mg PO DAILY 10/08/18 [History] Sennosides/Docusate Sodium [Senna Plus] 1 tab PO DAILY PRN 10/08/18 [History] glipiZIDE [Glipizide] 10 mg PO BID 10/08/18 [History] hydroCHLOROthiazide [Hydrochlorothiazide] 25 mg PO DAILY 10/08/18 [History] risperiDONE [Risperdal] 3 mg PO HS 10/08/18 [History] Ertapenem [INVanz] 1,000 mg IVPB DAILY #28 vial 10/11/18 [Rx] Ondansetron ODT [Zofran ODT] 4 mg SL Q8HR PRN #12 tab.rapdis 12/05/18 [Rx] Oxycodone HCl/Acetaminophen [Percocet 5-325 mg Tablet] 1 each PO Q4-6H PRN 2 Days #8 tablet 12/05/18 [Rx] Allergy/AdvReac Type Severity Reaction Status Date / Time hydrocodone [From Vicodin] AdvReac Severe Nausea, Verified 11/06/18 12:51 Vomiting, Hives Amoxicillin AdvReac Vomiting Verified 11/06/18 12:51 cephalexin [From Keflex] AdvReac Vomiting Verified 11/06/18 12:51 codeine AdvReac Confusion, Verified 11/06/18 12:51 GI Upset morphine AdvReac Rash, Verified 11/05/18 11:09 Hives, Vomiting All Systems Reviewed: The remainder of the systems were reviewed and are negative - Constitutional Constitutional: no fever(s) - Cardiovascular Cardiovascular: leg edema, leg ulcers, pedal edema, other (pedal ulcer), no chest pain - Respiratory Respiratory: no cough, no dyspnea - Musculoskeletal Musculoskeletal: numbness, tingling Physical Exam - Constitutional Vitals: Temp Pulse Resp BP Pulse Ox 98.5 F 67 16 124/76 95 12/10/18 07:28 12/10/18 07:28 12/10/18 07:28 12/10/18 07:28 12/10/18 07:28 Exam: Constitiutional: Alert and oriented x 3. Well nourished. No acute distress noted Vascular: 1/4 DP/PT bilaterally, CFT <3 sec to all digits, warm to warm from tibia to toes bilaterally Neurologic: Diminished sensation to touch, normal plantar response Dermatologic: Left lateral calf ulceration with necrosis noted to wound bed, tendon exposed, foul odor noted, no active drainage noted, right calcaneous ulceration with necrosis noted to proximal wound bed, distal wound bed red and beefy, foul odor noted Musculoskeletal: 3/5 muscle strength and normal tone bilaterally. Results - Labs Result Diagrams: 12/10/18 04:03 12/10/18 04:03 Labs: Abnormal lab results RBC 3.34 M/mcL (4.19-5.50) L 12/10/18 04:03 Hgb 10.8 g/dL (12.9-16.9) L 12/10/18 04:03 Hct 33.5 % (37.5-50.1) L 12/10/18 04:03 MCV 100.3 fL (83.0-100.0) H 12/10/18 04:03 Plt Count 114 K/mcL (140-400) L 12/10/18 04:03 ESR 55 mm/hr (0-10) H 12/09/18 11:55 PT 14.4 Seconds (9.4-12.1) H 12/10/18 04:03 APTT 53.3 Seconds (26.0-36.0) H 12/10/18 04:03 Glucose 110 mg/dL (70-105) H 12/09/18 11:34 POC Glucose 117 mg/dL (70-99) H 12/10/18 05:28 Total Bilirubin 1.1 mg/dL (0.3-1.0) H 12/10/18 04:03 Alkaline Phosphatase 165 Units/L (34-104) H 12/10/18 04:03 C-Reactive Protein 34 mg/L (Less than 10) H 12/09/18 11:34 Serum Total Protein 6.3 g/dL (6.4-8.9) L 12/10/18 04:03 Albumin 3.0 g/dL (3.5-5.7) L 12/10/18 04:03 Albumin/Globulin Ratio 0.9 (1.1-2.2) L 12/10/18 04:03 Triglycerides 229 mg/dL (< 150) H 12/10/18 04:03 VLDL Cholesterol, Calc 46 mg/dL (< 31) H 12/10/18 04:03 HDL Cholesterol 32 mg/dL (40-59) L 12/10/18 04:03 H & H 12/09/18 12/10/18 Range/Units 11:34 04:03 Hgb 11.6 L 10.8 L (12.9-16.9) g/dL Hct 35.5 L 33.5 L (37.5-50.1) % All other labs normal. - Diagnostic results Ankle/Foot x-ray: report reviewed Consult Discharge Plan - Plan Referrals: Froylan Guido MD [Primary Care Provider] -
[2018-12-10] MEDS ORDERED: *HR* LORazepam 2 MG/ML VIAL IVP PRN ×2 (14:28)
[2018-12-10] MEDS: *HR* OxyCODONE/APAP 10/325 TABLET PO PRN ×2 (15:14→20:33)
[2018-12-10] MEDS: RisperiDAL 3 MG TABLET PO SCH (20:37)
[2018-12-11 04:25] LABS: Basophils % 0.4 %; Eosinophils # 0.2 K/mcL (0.0-0.6); Eosinophils % 4.3 %; Hematocrit 32.5 % (37.5-50.1); Hemoglobin 10.7 g/dL (12.9-16.9); Immature Granulocytes % 0.4 % (0-4); Lymphocytes # 0.9 K/mcL (0.6-4.6); Lymphocytes % 19.4 %; Mean Corpuscular HGB Conc 32.9 g/dL (31.6-35.5); Mean Corpuscular Volume 100.3 fL (83.0-100.0); Mean Platelet Volume 9.5 fL (9.4-12.4); Monocytes # 0.7 K/mcL (0.0-1.3); Monocytes % 14.9 %; Neutrophils # 2.8 K/mcL (1.6-8.9); Platelet Count 118 K/mcL (140-400); Red Blood Count 3.24 M/mcL (4.19-5.50); Red Cell Distribution Width 13.6 % (11.5-14.5); Segmented Neutrophils % 60.6 %; White Blood Count 4.7 K/mcL (4.3-11.1)
[2018-12-11 04:50] LABS: BUN/Creatinine Ratio 10 (6-26); Blood Urea Nitrogen 8 mg/dL (6-20); Calcium 8.6 mg/dL (8.6-10.3); Carbon Dioxide 25 mEq/L (23-29); Chloride 108 mEq/L (98-107); Glucose 101 mg/dL (70-105); Osmolality,Calculated 284 (280-300); Potassium 3.9 mEq/L (3.5-5.1); Sodium 138 mEq/L (136-145); eGFR For African Americans > 60 (> 60); eGFR For Non-African Americans > 60 (> 60)
[2018-12-11] MEDS: *HR* Heparin 5,000 UNIT/ML VIAL SQ SCH ×2 (05:39→17:51)
[2018-12-11] MEDS: *HR* OxyCODONE/APAP 10/325 TABLET PO PRN ×4 (07:25→20:31)
[2018-12-11] MEDS: 0.9 % Sodium Chloride 1,000 ML IVC SCH ×2 (07:26→16:01)
[2018-12-11] MEDS: hydroCHLOROthiazide 25 MG TABLET PO SCH (08:41)
[2018-12-11] MEDS: risperiDONE 1 MG TABLET PO SCH (08:41)
[2018-12-11] MEDS: Pregabalin 75 MG CAPSULE PO SCH ×3 (08:41→20:29)
[2018-12-11] MEDS: Metoprolol XL (24 HR) Succ 50 MG TAB.ER.24H PO SCH ×2 (08:41→20:29)
[2018-12-11] MEDS: Nicotine 21 MG PATCH.TD24 TD SCH (08:41)
[2018-12-11] MEDS: Piperacillin/Tazobactam 3.375 GM in 0.9 % Sodium Chloride Mini Bag 100 ML IVPB SCH ×2 (08:42→16:00)
[2018-12-11] MEDS: Lisinopril 20 MG TABLET PO SCH (08:42)
[2018-12-11] MEDS: Fluticasone Propionate Nasal 50 MCG/SPRAY BOTTLE NS SCH ×2 (08:52→20:33)
--- NOTE | 2018-12-11 14:21 | Internal Med Progress Note ---
Hospitalist Progress Note - Encounter Date of Encounter: 12/11/18 Time of Encounter: 09:00 - Subjective Interval History: Seen and examined. Afebrile. No overnight events. Patient denies headache, fever, chills, chest pain, shortness of breath, abdominal pain, constipation, diarrhea, changes in urination, difficulty with ambulation. - Exam Vitals: Temp Pulse Resp BP Pulse Ox 98.1 F 66 16 114/70 95 12/11/18 10:15 12/11/18 10:15 12/11/18 10:15 12/11/18 10:15 12/11/18 10:15 Exam: Gen: Vitals noted. No acute distress. Eyes: anicteric sclerae, moist conjunctivae. Pupils equal, round, and reactive to light HENT: Atraumatic, normocephalic; oropharynx clear with moist mucous membranes and no mucosal ulcerations Neck: Trachea midline; supple, no thyromegaly or lymphadenopathy Cardiac: RRR, no murmurs, rubs or gallops, S1/S2 Pulmonary: CTA bilaterally, no wheezes, rales or rhonchi, equal chest expansion Abdomen: soft, nontender, no rigidity or guarding. No masses or hepatosplenomegaly MSK: ROM intact, no joint swelling noted Extremities: no BLE edema, nontender calf, no cyanosis or clubbing. R and L feet/ankles wrapped in bandages. Clean and dry Skin: Normal temperature, turgor and texture; no rash, ulcers or subcutaneous nodules. Multiple spider angiomata noted on chest. Neuro: moves all extremities, no focal deficits. Psych: Appropriate mood and behavior. A&Ox3 - Assessment and Plan (1) Diabetic ulcer of left lower leg Current Visit: Yes Status: Acute Assessment and Plan: Unhealing diabetic foot ulcer - L Lateral ankle - Debridement on 12/05/18 - Went home with wound vac - Sent in from wound clinic - Cultures: Proteus mirabilis Plan: - zosyn - ID consult - Wound care consult - Podiatry: Surgery tomorrow, for debridement (2) Alcohol abuse Current Visit: Yes Status: Chronic Assessment and Plan: Pt reports alcohol heavy alcohol use - 12-24 cans daily - CIWA scores trending at 4 Plan: - Monitor via CIWA protocol - Lorazepam 2mg q4 PRN for CIWA 10-21 (3) Diabetes mellitus Current Visit: No Status: Chronic Assessment and Plan: Hx of Diabetes - Controlled with glipizide - A1C 5.2 11/05/18 Plan - Diabetes well-managed. No need to monitor (4) Sleep apnea Current Visit: Yes Status: Acute Assessment and Plan: Hx of sleep apnea - CPAP at night DVT Prophylaxis: Sub Q Heparin - Time Spent with Patient Total time spent is greater than 50% in coordination of care (as documented) at patient's floor/unit and/or counseling patient: Internal Medicine: Result - Labs CBC & Chem 7: 12/11/18 03:52 12/11/18 03:52 Labs: Short CBC 12/11/18 Range/Units 03:52 WBC 4.7 (4.3-11.1) K/mcL Hgb 10.7 L (12.9-16.9) g/dL Hct 32.5 L (37.5-50.1) % Plt Count 118 L (140-400) K/mcL Neutrophils # 2.8 (1.6-8.9) K/mcL BMP 12/11/18 03:52 Sodium 138 Potassium 3.9 Chloride 108 H Carbon Dioxide 25 BUN 8 Creatinine 0.84 Glucose 101 Calcium 8.6 - ABG Interpretation ABG results: PT/INR, D-dimer PT 14.4 Seconds (9.4-12.1) H 12/10/18 04:03 - Impressions Impressions Lower Extremity MRI 12/09/18 00:00 IMPRESSION: 1. Deep surgical wound along the lateral aspect of the distal left leg which again is seen to expose the peroneus longus and brevis tendons which are also likely discontinuous at the site of the wound. 2. Redemonstration of extensive myositis throughout the lateral compartment of the leg and to a lesser extent within the anterior and deep posterior compartments. 3. No evidence for osteomyelitis. 4. No organized drainable fluid collections identified. D/ / Kirt Marte MD / Kirt Marte MD Interpreting Provider: Kirt Marte MD Consult Discharge Plan - Plan Referrals: Froylan Guido MD [Primary Care Provider] - (3) Diabetes mellitus Qualifiers: Diabetes mellitus type: type 2 Diabetes mellitus intermodal customer service insulin use: without intermodal customer service use Diabetes mellitus complication status: with skin complications Diabetes mellitus complication detail: with foot ulcer Qualified Code(s): E11.621 - Type 2 diabetes mellitus with foot ulcer; L97.509 - Non- pressure chronic ulcer of other part of unspecified foot with unspecified severity
[2018-12-11] MEDS ORDERED: Aminoglycoside Consult 1 EACH MC ONE (14:31)
--- NOTE | 2018-12-11 14:34 | Infectious Disease Consult ---
Infectious Disease-Consult - Encounter Date/Time Date of Encounter: 12/11/18 Time of Encounter: 14:26 - Data of Consult Patient: known to practice within the last 3 years Reason for consult: "L lower extremity Unhealing ulcer" Consult date: 12/11/18 Requesting Physician: Jayme Coto Primary Care Provider: Froylan Guido MD - HPI HPI: Mr. Parish is a 48-year-old male with a past medical history of COPD, diabetes, GERD, hypertension, alcohol abuse, and chronic bilateral foot nonhealing ulcers. The patient was admitted to the hospital 12/09/18 for left lower extremity diabetic foot ulcer and diabetic foot ulcer to the right heel. We are consulted 12/11/18 for further workup and treatment recommendations for nonhealing ulcer to the left lower leg. Briefly, the patient is a 48-year-old male with past medical history as stated above. The patient is well-known to the infectious disease service as we have in consult on his case in the past. Initially, we were following the patient last year for bilateral foot ulcer infections. He completed a prolonged course of IV Zosyn and continue to follow up with him in the wound clinic with Dr. Mancia. He reported that his left heel ulcer was nearly healed, but the right one persisted. He developed a left ankle ulceration earlier this year after foy ving a wound VAC to the left heel and he is not sure if the tubing rather exactly how it happened. He had been following with Dr. Mancia. Apparently, he had regression of the wounds per the wound clinic and was advised to come to the ER for admission. At that time, wound cultures were obtained and were positive for Proteus mirabilis. He had an MRI that showed extensive myositis throughout the peroneal compartment with tenosynovitis of the peroneal tendons in the retro-malleoli region with extensive myositis and anterior compartment throughout the left leg with mild myositis the posterior tibialis and flexor hallucis longus musculature of the mid to distal leg. There is no soft tissue abscess or ostium myelitis noted. He was taken to the operating room 10/09/18 where he underwent preparation of the right heel for wound graft, application of graft to the right heel wound, excisional debridement of left foot wound to subcutaneous tissue, and left lateral leg wound. Postop, he was discharged home on Ertapenem. He completed a 5 week course of IV antibiotics and clinically was doing well. He was seen in ID clinic on 11/12/18 and stated he wanted to discontinue his IV antibiotics. Oral options were limited based on susceptibilities, but we opted to try Augmentin for 2 weeks. He was supposed to be evaluated by ID when he came back to the wound clinic, but we were not notified of his appointment. Apparently, the patient was taken to the operating room 12/06/18 for excisional debridement of the left wound with debridement of the peroneal tendon with application of graft by Dr. Mancia. He had a wound VAC placed and when he was seen in the wound clinic on the day of admission he was noted to have necrosis of the wound and was advised to come to the ER for evaluation. Upon arrival, he was tachycardic, but was afebrile and otherwise hemodynamically stable. WBC was normal. Lactic acid and renal function were normal. ESR is mildly elevated at 655 and a CRP of 34. X-rays of the left foot and tib-fib were negative. Cultures were obtained 2 sets. Wound culture was obtained as well. He was started empirically on vancomycin and Zosyn and admitted to the hospital for further evaluation. Since admission, the patient has undergone an MRI of the left flexure me that sh owed a deep surgical wound along the lateral aspect of the distal left leg which again is seen to expose the peroneal longus and brevis tendons which are also likely discontinuous at the site of the wound. There was redemonstration of extensive myositis throughout the lateral compartment of the leg and to a lesser extent within the anterior and deep posterior compartments. There is no evidence of osteo-myelitis or organized drainable fluid collection. Wound cultures obtained in the emergency department are positive for Proteus mirabilis, sensitive to carb ertapenem, gentamicin, tobramycin, and Zosyn. Blood cultures obtained in the emergency department are no growth to date. He has been evaluated by podiatry who is planning operative debridement tomorrow. He underwent JEREMY studies that were normal bilaterally. Bilateral lower extremity TCP O2 monitoring levels are consistent with healing. Currently, he is on vancomycin and Zosyn. We have asked to evaluate and make further recomm endations. During my exam today, the patient states that last week after surgery, the wound was looking nice and pink. He states that the day after surgery he developed pain, but did not say anything to anybody. On Sunday when he went to wound care, there is necrosis of the wound. He denies fevers, chills, rigors. Denies chest pain or shortness of breath. Reports a chronic smoker's cough. Denies nausea, vomiting, diarrhea, or constipation. Denies abdominal pain or urinary complaints. Denies oral thrush or skin rashes. Complains of pain in the bilateral feet at this time. The patient lives at home with his family. He does not work outside the home. He denies any chronic infectious diseases. He states he is smoking a pack to a pack and half of cigarettes per day. States he is drinking 8-12 beers per day. Denies pet or animal exposures. - ROS Review of Systems: All systems reviewed and no additional remarkable complaints except as stated. - Results CBC & Chem 7: 12/11/18 03:52 12/11/18 03:52 - Exam Vitals: Temp Pulse Resp BP Pulse Ox 97.7 F 71 17 135/77 96 12/11/18 14:23 12/11/18 14:23 12/11/18 14:23 12/11/18 14:23 12/11/18 14:23 Exam: Head: Atraumatic, normal inspection, normocephalic. Eye: EOMI, PERRLA, no scleral icterus noted. ENT: Mucous membranes moist. No odontogenic infection noted. Neck: Normal inspection, no meningismus. Respiratory: Clear to auscultation. No rales, respiratory distress, rhonchi, or wheezes noted. Cardiovascular: Regular rate and rhythm, S1 and S2 audible. No murmurs, rubs, or gallops. GI: Soft, nondistended, normal bowel sounds. Extremities: Foul-smelling wound noted to the lateral aspect of the left ankle and calf with fibrinous loss noted to the wound bed. No surrounding erythema noted. Ulceration noted to the right posterior lateral aspect of the heel with fibrinous loss in the wound bed. Foul odor noted. No surrounding erythema. Back: Normal inspection. No vertebral tenderness noted. Neurological: Alert, oriented 3, no focal deficits. Psychiatric: normal affect, normal mood. Skin: Dry, intact, warm. Normal color. No rashes. Albuterol Sulfate [Proventil Inhaler] 2 puff IH Q4HR PRN 04/06/16 [History] [place]-3/Dha/Epa/Fish Oil [Fish Oil 1,000 mg Softgel] 2,000 mg PO BID 04/06/16 [History] Omeprazole [PriLOSEC] 40 mg PO DAILY 04/06/16 [History] Loratadine [Claritin] 10 mg PO DAILY 12/21/16 [History] Pregabalin [Lyrica] 150 mg PO TID 12/21/16 [History] diazePAM [Valium] 10 mg PO 2-3XD PRN 09/05/17 [History] Atorvastatin [Lipitor] 40 mg PO HS 03/13/18 [History] Collagenase Oint [Santyl] 1 appl TP DAILY 03/13/18 [History] Fluticasone Propionate Nasal [Flonase] 1 spr NS BID 03/13/18 [History] risperiDONE [Risperdal] 2 mg PO QAM 03/13/18 [History] Ibuprofen [Motrin] 600 mg PO BID PRN 10/08/18 [History] Meloxicam [Mobic] 15 mg PO DAILY 10/08/18 [History] Metformin HCl 500 mg PO BIDWM PRN 10/08/18 [History] Metoprolol Succinate [Toprol Xl] 100 mg PO BID 10/08/18 [History] Multivitamin [One Daily] 1 tab PO QAM 10/08/18 [History] Quinapril HCl [Accupril] 40 mg PO DAILY 10/08/18 [History] Sennosides/Docusate Sodium [Senna Plus] 1 tab PO DAILY PRN 10/08/18 [History] glipiZIDE [Glipizide] 10 mg PO BID 10/08/18 [History] hydroCHLOROthiazide [Hydrochlorothiazide] 25 mg PO DAILY 10/08/18 [History] risperiDONE [Risperdal] 3 mg PO HS 10/08/18 [History] Ondansetron ODT [Zofran ODT] 4 mg SL Q8HR PRN #12 tab.rapdis 12/05/18 [Rx] Oxycodone HCl/Acetaminophen [Percocet 5-325 mg Tablet] 1 each PO Q4-6H PRN 2 Days #8 tablet 12/05/18 [Rx] Allergy/AdvReac Type Severity Reaction Status Date / Time hydrocodone [From Vicodin] AdvReac Severe Nausea, Verified 12/10/18 20:19 Vomiting, Hives Amoxicillin AdvReac Vomiting Verified 12/10/18 20:19 cephalexin [From Keflex] AdvReac Vomiting Verified 12/10/18 20:19 codeine AdvReac Confusion, Verified 12/10/18 20:19 GI Upset morphine AdvReac Rash, Verified 12/10/18 20:19 Hives, Vomiting - Assessment and Plan (1) Nonhealing surgical wound Current Visit: No Status: Acute Location: Left lateral ankle. Etiology: Likely secondary to poor vasculature plus tobacco abuse plus for nutrition secondary to heavy alcohol use. Status post excisional debridement left foot wound into the subcutaneous tissue 10/09/[address] Mancia. Developed postop wound infection. Causative organism was Proteus mirabilis. Treated with 5 weeks of IV ertapenem. Status post perforation of left leg wound for grafting harvesting of split- thickness graft from left thigh and application of graft 11/06/[address] Bower. Status post excisional debridement of left leg wound with debridement of peroneal tendon and application of graft 12/05/[address] Mancia. Developed postop necrosis of the wound. Swab cultures of the wound are positive for Proteus mirabilis. Foul odor noted, but no surrounding cellulitis. MRI shows extensive myositis throughout the lateral compartment, but no osteo- myelitis or abscess. Currently on vancomycin and Zosyn. Qualifiers: Encounter type: initial encounter Qualified Code(s): T81.89XA - Other complications of procedures, not elsewhere classified, initial encounter SNOMED Code(s): 079214309 (2) Heel ulcer Current Visit: No Status: Acute Location: Right heel. Chronic. Podiatry consult and following. Clinically does not appear infected. Qualifiers: Laterality: unspecified laterality Non-pressure ulcer stage: with fat layer exposed Qualified Code(s): L97.402 - Non-pressure chronic ulcer of unspecified heel and midfoot with fat layer exposed SNOMED Code(s): 761857906 (3) COPD (chronic obstructive pulmonary disease) Current Visit: No Status: Chronic Qualifiers: COPD type: unspecified COPD Qualified Code(s): J44.9 - Chronic obstructive pulmonary disease, unspecified SNOMED Code(s): 61204391 (4) Tobacco abuse Current Visit: No Status: Chronic States he smokes 1-1-1/2 packs of cigarettes per day. Nicotine replacement therapy per the primary team. SNOMED Code(s): 314753539 (5) Alcohol abuse Current Visit: Yes Status: Chronic States he is down from drinking 30 beers per day to 8-12 beers per day. Discussed the importance of cessation of all alcohol to aid in improvement in his nutritional status and increase wound healing. SNOMED Code(s): 60982642 (6) Depression with anxiety Current Visit: No Status: Chronic SNOMED Code(s): 031864385 (7) CHLOE (obstructive sleep apnea) Current Visit: No Status: Chronic SNOMED Code(s): 09321874 (8) Morbid obesity Current Visit: No Status: Chronic SNOMED Code(s): 600790782 (9) Diabetes mellitus Current Visit: No Status: Chronic Hemoglobin A1c 5.2%. Recommend aggressive glucose monitoring and control to promote healing and prevent reinfection. Management per the primary team. Qualifiers: Diabetes mellitus type: type 2 Diabetes mellitus [facility] insulin use: without [facility] use Diabetes mellitus complication status: with skin complications Diabetes mellitus complication detail: with foot ulcer Qualified Code(s): E11.621 - Type 2 diabetes mellitus with foot ulcer; L97.509 - Non-pressure chronic ulcer of other part of unspecified foot with unspecified severity SNOMED Code(s): 17801533 (10) HTN (hypertension) Current Visit: No Status: Chronic Qualifiers: Hypertension type: essential hypertension Qualified Code(s): I10 - Essential (primary) hypertension SNOMED Code(s): 99348375 - Recommendations Recommendations: Await blood cultures to finalize. Await intraoperative cultures and findings. Wound care per podiatry recommendations. Continue vancomycin IV. Pharmacy to dose. Goal trough approximately 15. Continue Zosyn 3.375 g IV every 8 hours for now. Duration of treatment depends on the clinical picture. Monitor renal function for drug toxicity and dose-adjust antibiotics. 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 Psychiatric history: anxiety, depression - Past Surgical History Surgical History: orthopedic, other, other Additional surgical history: graft placement to left plantar foot X5 - Social History Smoking Status: Current every day smoker Smokeless Tobacco Status: No Alcohol use: heavy, recent Drug use: none - Family History Mother Adopted: No Living Status: Still Living Hx Family Cardiac Disorders: Yes Hx Family Respiratory Disorders: Yes Hx Family Cancer: No Hx Family GI Disorders: No Hx Family Endocrine Disorder: No Hx Family Neuromuscular Disorders: No Hx Family Neurologic Disorders: No Hx Family HEENT Disorders: No Hx Family Autoimmune Disorders: No Father Adopted: No Family Member Ethnicity: Non- Living Status: Hx Family Cardiac Disorders: Yes Hx Family Respiratory Disorders: Yes Hx Family Cancer: Yes Hx Family GI Disorders: No Hx Family Endocrine Disorder: Yes Hx Family Neuromuscular Disorders: No Hx Family Neurologic Disorders: No Hx Family HEENT Disorders: No Hx Family Autoimmune Disorders: No Consult Discharge Plan - Plan Referrals: Froylan Guido MD [Primary Care Provider] - - Attending Attestation I have personally performed a face to face evaluation on this patient. I have re viewed and agree with the care plan. History and Exam by me shows: This is an addendum to original report dictated by Cristina Avila CNP. Please refer to Cristina's note for full detail. I agree with above history of present illness, review of systems and physical exam findings. Assessment and plan: Nonhealing surgical wound of the left lateral ankle likely secondary to poor vasculature, heavy alcohol use and tobacco abuse. Heel ulcer on the right COPD Diabetes mellitus type 2 Multiple antibiotic allergies Recommendations await blood cultures and intra op cultures to finalize Continue vancomycin with goal Vanco trough of 15 Continue Zosyn Duration of treatment depends on clinical picture Patient very eager to go home Discussed with Dr. Mancia
[2018-12-11] MEDS ORDERED: *HR* OxyCODONE/APAP 5/325 TABLET PO PRN (15:02)
[2018-12-11] MEDS: RisperiDAL 3 MG TABLET PO SCH (20:29)
[2018-12-12] MEDS: 0.9 % Sodium Chloride 1,000 ML IVC SCH ×4 (00:17→21:29)
[2018-12-12] MEDS: Piperacillin/Tazobactam 3.375 GM in 0.9 % Sodium Chloride Mini Bag 100 ML IVPB SCH ×3 (00:18→16:55)
--- NOTE | 2018-12-12 02:03 | Anesthesia Evaluation PreOp ---
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) Other Medical History: Diabetes Type II, GERD, Other (obesity) Anesthesia History: No Prior Anesthetic Complications, Past Anesthesia (Left leg debridement) Alcohol Use: heavy, recent Drug use: none Medications and Allergies Albuterol Sulfate [Proventil Inhaler] 2 puff IH Q4HR PRN 04/06/16 [History] [place]-3/Dha/Epa/Fish Oil [Fish Oil 1,000 mg Softgel] 2,000 mg PO BID 04/06/16 [History] Omeprazole [PriLOSEC] 40 mg PO DAILY 04/06/16 [History] Loratadine [Claritin] 10 mg PO DAILY 12/21/16 [History] Pregabalin [Lyrica] 150 mg PO TID 12/21/16 [History] diazePAM [Valium] 10 mg PO 2-3XD PRN 09/05/17 [History] Atorvastatin [Lipitor] 40 mg PO HS 03/13/18 [History] Collagenase Oint [Santyl] 1 appl TP DAILY 03/13/18 [History] Fluticasone Propionate Nasal [Flonase] 1 spr NS BID 03/13/18 [History] risperiDONE [Risperdal] 2 mg PO QAM 03/13/18 [History] Ibuprofen [Motrin] 600 mg PO BID PRN 10/08/18 [History] Meloxicam [Mobic] 15 mg PO DAILY 10/08/18 [History] Metformin HCl 500 mg PO BIDWM PRN 10/08/18 [History] Metoprolol Succinate [Toprol Xl] 100 mg PO BID 10/08/18 [History] Multivitamin [One Daily] 1 tab PO QAM 10/08/18 [History] Quinapril HCl [Accupril] 40 mg PO DAILY 10/08/18 [History] Sennosides/Docusate Sodium [Senna Plus] 1 tab PO DAILY PRN 10/08/18 [History] glipiZIDE [Glipizide] 10 mg PO BID 10/08/18 [History] hydroCHLOROthiazide [Hydrochlorothiazide] 25 mg PO DAILY 10/08/18 [History] risperiDONE [Risperdal] 3 mg PO HS 10/08/18 [History] Ondansetron ODT [Zofran ODT] 4 mg SL Q8HR PRN #12 tab.rapdis 12/05/18 [Rx] Oxycodone HCl/Acetaminophen [Percocet 5-325 mg Tablet] 1 each PO Q4-6H PRN 2 Days #8 tablet 12/05/18 [Rx] Allergy/AdvReac Type Severity Reaction Status Date / Time hydrocodone [From Vicodin] AdvReac Severe Nausea, Verified 12/10/18 20:19 Vomiting, Hives Amoxicillin AdvReac Vomiting Verified 12/10/18 20:19 cephalexin [From Keflex] AdvReac Vomiting Verified 12/10/18 20:19 codeine AdvReac Confusion, Verified 12/10/18 20:19 GI Upset morphine AdvReac Rash, Verified 12/10/18 20:19 Hives, Vomiting - Meds/Allergy Pre-op Review Medications Reviewed: Yes Allergies Reviewed: Yes Beta Blockers on Current Med List: Yes Anesthesia Results - Labs 12/11/18 03:52 12/11/18 03:52 - Imaging EKG: report reviewed ( Interpretive Statements SINUS RHYTHM Electronically Signed On 11-06-2018 18:27:27 EDT by Peter Henry) Anesthesia Exam Vital Signs/O2 Sat, Most Current Temp Pulse Resp BP Pulse Ox 97.7 F 70 12 135/75 98 12/11/18 23:11 12/11/18 23:11 12/11/18 23:48 12/11/18 23:11 12/11/18 23:48 Weight: 129kg - HEENT Pupil (Motor): Pupils equal, EOMI Mallampati: III Teeth: Normal - 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
[2018-12-12] MEDS: *HR* OxyCODONE/APAP 10/325 TABLET PO PRN ×4 (05:57→20:15)
[2018-12-12] MEDS: *HR* Heparin 5,000 UNIT/ML VIAL SQ SCH ×2 (05:58→16:55)
--- NOTE | 2018-12-12 07:41 | Internal Med Progress Note ---
Hospitalist Progress Note - Encounter Date of Encounter: 12/12/18 Time of Encounter: 07:40 - Subjective Interval History: Seen and examined. Afebrile. No overnight events. Patient denies headache, fever, chills, shortness of breath, chest pain, abdominal pain, constipation, diarrhea, changes in urination. Going for surgery with podiatry this a.m. - Exam Vitals: Temp Pulse Resp BP Pulse Ox 97.8 F 63 16 117/73 93 12/12/18 07:26 12/12/18 07:26 12/12/18 07:26 12/12/18 07:26 12/12/18 07:26 Exam: Gen: Vitals noted. No acute distress. Eyes: anicteric sclerae, moist conjunctivae. Pupils equal, round, and reactive to light HENT: Atraumatic, normocephalic; oropharynx clear with moist mucous membranes and no mucosal ulcerations Neck: Trachea midline; supple, no thyromegaly or lymphadenopathy Cardiac: RRR, no murmurs, rubs or gallops, S1/S2 Pulmonary: CTA bilaterally, no wheezes, rales or rhonchi, equal chest expansion Abdomen: soft, nontender, no rigidity or guarding. No masses or hepatosplenomegaly MSK: ROM intact, no joint swelling noted Extremities: no BLE edema, nontender calf, no cyanosis or clubbing. R and L feet/ankles wrapped in bandages. Clean and dry Skin: Normal temperature, turgor and texture; no rash, ulcers or subcutaneous no dules. Multiple spider angiomata noted on chest. Neuro: moves all extremities, no focal deficits. Psych: Appropriate mood and behavior. A&Ox3 - Assessment and Plan (1) Diabetic ulcer of left lower leg Current Visit: Yes Status: Acute Assessment and Plan: Unhealing diabetic foot ulcer - L Lateral ankle - Debridement on 12/05/18 - Went home with wound vac - Sent in from wound clinic - Cultures: Proteus mirabilis Plan: - zosyn - ID consult - Wound care consult - Podiatry: Surgery today, for debridement - Will likely need midline for IV antibiotics (2) Alcohol abuse Current Visit: Yes Status: Chronic Assessment and Plan: Pt reports alcohol heavy alcohol use - 12-24 cans daily - CIWA scores trending at 4 Plan: - Monitor via CIWA protocol - Lorazepam 2mg q4 PRN for CIWA 10-21 (3) Diabetes mellitus Current Visit: No Status: Chronic Assessment and Plan: Hx of Diabetes - Controlled with glipizide - A1C 5.2 11/05/18 Plan - Diabetes well-managed. No need to monitor (4) Sleep apnea Current Visit: Yes Status: Acute Assessment and Plan: Hx of sleep apnea - CPAP at night - Time Spent with Patient Total time spent is greater than 50% in coordination of care (as documented) at patient's floor/unit and/or counseling patient: Internal Medicine: Result - Labs CBC & Chem 7: 12/11/18 03:52 12/11/18 03:52 - ABG Interpretation ABG results: PT/INR, D-dimer PT 14.4 Seconds (9.4-12.1) H 12/10/18 04:03 Consult Discharge Plan - Plan Referrals: Froylan Guido MD [Primary Care Provider] - (3) Diabetes mellitus Qualifiers: Diabetes mellitus type: type 2 Diabetes mellitus 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
[2018-12-12] MEDS: Lisinopril 20 MG TABLET PO SCH (08:46)
[2018-12-12] MEDS: Nicotine 21 MG PATCH.TD24 TD SCH (08:46)
[2018-12-12] MEDS: risperiDONE 1 MG TABLET PO SCH (08:47)
[2018-12-12] MEDS: Metoprolol XL (24 HR) Succ 50 MG TAB.ER.24H PO SCH ×2 (08:47→20:15)
[2018-12-12] MEDS: hydroCHLOROthiazide 25 MG TABLET PO SCH (08:47)
[2018-12-12] MEDS: Pregabalin 75 MG CAPSULE PO SCH ×3 (08:47→20:15)
[2018-12-12] MEDS: Fluticasone Propionate Nasal 50 MCG/SPRAY BOTTLE NS SCH ×3 (08:52→21:33)
[2018-12-12] MEDS ORDERED: Calcium Gluconate 1,000 MG/10 ML VIAL ONE (08:58)
--- NOTE | 2018-12-12 09:39 | Infectious Disease Progress No ---
ID Progress Note Date of Encounter: 12/12/18 Time of Encounter: 09:37 - Subjective Subjective: Patient seen and examined. No acute events noted overnight. Patient complains of pain in the bilateral feet. Denies fevers, chills, rigors. Denies chest pain, shortness of breath, or cough. Denies nausea, vomiting, or constipation. Reports some loose stool this morning. Denies abdominal pain or urinary complaints. Denies oral thrush or skin rashes. States appetite is good, but is nothing by mouth for surgery later today. - Objective CBC & Chem 7: 12/11/18 03:52 12/11/18 03:52 - Exam Vitals: Temp Pulse Resp BP Pulse Ox 97.8 F 63 16 117/73 93 12/12/18 07:26 12/12/18 07:26 12/12/18 07:26 12/12/18 07:26 12/12/18 07:26 Exam: Head: Atraumatic, normal inspection, normocephalic. Eye: EOMI, PERRLA, no scleral icterus noted. ENT: Mucous membranes moist. No odontogenic infection noted. Neck: Normal inspection, no meningismus. Respiratory: Clear to auscultation. No rales, respiratory distress, rhonchi, or wheezes noted. Cardiovascular: Regular rate and rhythm, S1 and S2 audible. No murmurs, rubs, or gallops. GI: Soft, nondistended, normal bowel sounds. Extremities: 2+ edema noted to the LLE. Left ankle dressing C/D/I. Right foot d ressing C/D/I. Avulsion of the nail right toe #2 noted. Neurological: Alert, oriented 3, no focal deficits. Psychiatric: normal affect, normal mood. Skin: Dry, intact, warm. Normal color. No rashes. - Assessment and Plan (1) Nonhealing surgical wound Current Visit: No Status: Acute Location: Left lateral ankle. Etiology: Likely secondary to poor vasculature plus tobacco abuse plus for nutrition secondary to heavy alcohol use. Status post excisional debridement left foot wound into the subcutaneous tissue 10/09/[address] Mancia. Developed postop wound infection. Causative organism was Proteus mirabilis. Treated with 5 weeks of IV ertapenem. Status post perforation of left leg wound for grafting harvesting of split- thickness graft from left thigh and application of graft 6/19/[address] Bower. Status post excisional debridement of left leg wound with debridement of peroneal tendon and application of graft 12/05/[address] Mancia. Developed postop necrosis of the wound. Swab cultures of the wound are positive for Proteus mirabilis. Foul odor noted, but no surrounding cellulitis. MRI shows extensive myositis throughout the lateral compartment, but no osteo- myelitis or abscess. Podiatry consulted. Planning operative debridement later today. ESR and CRP elevated. Currently on vancomycin and Zosyn. Qualifiers: Encounter type: initial encounter Qualified Code(s): T81.89XA - Other complications of procedures, not elsewhere classified, initial encounter SNOMED Code(s): 469621515 (2) Heel ulcer Current Visit: No Status: Acute Location: Right heel. Chronic. Podiatry consult and following. Planning operative debridement later today. Clinically does not appear infected. Qualifiers: Laterality: unspecified laterality Non-pressure ulcer stage: with fat layer exposed Qualified Code(s): L97.402 - Non-pressure chronic ulcer of unspecified heel and midfoot with fat layer exposed SNOMED Code(s): 211820704 (3) COPD (chronic obstructive pulmonary disease) Current Visit: No Status: Chronic Qualifiers: COPD type: unspecified COPD Qualified Code(s): J44.9 - Chronic obstructive pulmonary disease, unspecified SNOMED Code(s): 65827927 (4) Tobacco abuse Current Visit: No Status: Chronic States he smokes 1-1-1/2 packs of cigarettes per day. Nicotine replacement therapy per the primary team. SNOMED Code(s): 459964950 (5) Alcohol abuse Current Visit: Yes Status: Chronic States he is down from drinking 30 beers per day to 8-12 beers per day. CIWA per primary team. Discussed the importance of cessation of all alcohol to aid in improvement in his nutritional status and increase wound healing. SNOMED Code(s): 10762029 (6) Depression with anxiety Current Visit: No Status: Chronic SNOMED Code(s): 874671891 (7) CHLOE (obstructive sleep apnea) Current Visit: No Status: Chronic SNOMED Code(s): 01951683 (8) Morbid obesity Current Visit: No Status: Chronic SNOMED Code(s): 592055123 (9) Diabetes mellitus Current Visit: No Status: Chronic Hemoglobin A1c 5.2%. Recommend aggressive glucose monitoring and control to promote healing and prevent reinfection. Management per the primary team. Qualifiers: Diabetes mellitus type: type 2 Diabetes mellitus group home insulin use: without group home use Diabetes mellitus complication status: with skin complications Diabetes mellitus complication detail: with foot ulcer Qualified Code(s): E11.621 - Type 2 diabetes mellitus with foot ulcer; L97.509 - Non-pressure chronic ulcer of other part of unspecified foot with unspecified severity SNOMED Code(s): 66054286 (10) HTN (hypertension) Current Visit: No Status: Chronic Qualifiers: Hypertension type: essential hypertension Qualified Code(s): I10 - Essential (primary) hypertension SNOMED Code(s): 32749912 - Recommendations Recommendations: Await blood cultures to finalize. Await intraoperative cultures and findings. Wound care per podiatry recommendations. Continue vancomycin IV. Pharmacy to dose. Goal trough approximately 15. Continue Zosyn 3.375 g IV every 8 hours for now. Duration of treatment depends on the clinical picture. Monitor renal function for drug toxicity and dose-adjust antibiotics. Consult Discharge Plan - Plan Additional Instructions: Follow up in wound care center on Sunday Change right heel dressing daily. Cleanse with warm water and mild soap daily. Place santyl, nickel thick, to wound bed. Cover with 4x4 dry gauze, kerlix, and medipore tape Leave wound vac in place until Sunday Referrals: Froylan Guido MD [Primary Care Provider] - Cristina Avila CNP [Advanced Practice Nurse] - 01/09/19 2:00 pm - Attending Attestation I have personally performed a face to face evaluation on this patient. I have reviewed and agree with the care plan. History and Exam by me shows: Assessment and plan: 1.Nonhealing surgical wound of the left lateral ankle likely secondary to poor vasculature, heavy alcohol use and tobacco abuse. 2.Heel ulcer on the right 3.COPD 4.Diabetes mellitus type 2 5.Multiple antibiotic allergies Recommendations Continue vancomycin IV. Pharmacy to dose. Continue Zosyn 3.375 g IV every 8 hours for now. Will tailor antibiotics according to culture results Clinical vancomycin trough around 15 Monitor labs and for drug toxicity Duration of treatment depends on the clinical picture.
[2018-12-12] MEDS ORDERED: *HR* FentaNYL (PF) 100 MCG/2 ML VIAL ONE ×2 (10:06→10:27)
[2018-12-12] MEDS ORDERED: *HR* Midazolam HCl 2 MG/2 ML VIAL ONE ×3 (10:06→10:52)
[2018-12-12] MEDS ORDERED: Lidocaine -MPF 2% 2 ML VIAL ONE ×2 (10:06→10:54)
[2018-12-12] MEDS ORDERED: *HR* Propofol 200 MG/20 ML VIAL IVP ONE (10:27)
[2018-12-12] MEDS ORDERED: Propofol 500 MG/50 ML INFUS..BTL ONE (10:29)
[2018-12-12] MEDS ORDERED: Albuterol 2.5 MG/3 ML NEBULIZER IH ONE ×2 (10:33→12:38)
[2018-12-12] MEDS ORDERED: Bupivacaine/EPI 1:200k 0.25%PF 10 ML VIAL INFILT ONE (10:53)
[2018-12-12] MEDS ORDERED: Dexamethasone 4 MG/ML VIAL ONE (10:54)
[2018-12-12] MEDS ORDERED: Ondansetron 4 MG/2 ML VIAL ONE (10:54)
[2018-12-12] MEDS ORDERED: Acetaminophen IV 1,000 MG/100 ML INFUS..BTL ONE (10:55)
[2018-12-12] MEDS ORDERED: Famotidine 20 MG/2 ML VIAL ONE (10:55)
[2018-12-12] MEDS ORDERED: Vancomycin 1,000 MG, 0.9 % Sodium Chloride 1,000 ML IR ONE ×2 (11:00→12:38)
--- NOTE | 2018-12-12 11:24 | Operative Note ---
Date of procedure: 12/12/18 Pre-op diagnosis: left leg wound [id number] and right foot 3.7zwi7pvp7.3cm Post-op diagnosis: same Procedure: excisional debridement left leg wound down to tendon/deep fascia excisonal debridement right foot wound into subcutaneous tissue Implants: none Complications: none Anesthesia: MAC Local Anesthetics: 1% Lidocaine HCL SubQ (cc) Surgeon: Tomas Bower Was there an social service assistant present: No Estimated blood loss (cc): 10 Specimen: left leg tissue Condition: stable Disposition: PACU Procedure in Detail: Indications: 48-year-old male who is a chronic alcoholic and 2 pack per day smoker comes in with necrosis of his wounds on the right foot and the left leg. Iron discussion was had with the patient if he does not change his drinking habits and stopped smoking and the real food to improve his nutrition he is going to end up with amputation of his legs as the wounds will become infected and ultimately get into the bone and there is nothing that I can do or anyone else can do to prevent this and it is upon him to change his habits and try to help himself as well. Risks versus benefits potential complications consequences of surgery and his condition were discussed at length. No guarantees were made as to the outcome of any procedure was discussed with him that his tendons have necrosis tendon or nonviable and they would be debrided he could develop deformity or loss of functionality of the left extremity. All questions were answered informed consent was signed. Bilateral lower extremities were scrubbed prepped and draped in the usual sterile fashion. Excisional debridement left leg wound and to deep fascia/tendon. Attention was directed lateral aspect of the patient's wound were #15 blade was used to excise necrotic tissue and the devitalized peroneal tendon. This devitalized tissue was sent to microbiology. Misonex debridement wand was also utilized. All devitalized tissue was excised and the wound that remained did have some granula r tissue and there was no further necrotic tissue. Site was irrigated with normal sterile saline which contained vancomycin. Excisional debridement of right foot wound into subcutaneous tissue. Attention was directed lateral aspect of the patient's right heel where a #15 blade was used to excisionally debride the necrotic patch as well as the Misonex debridement wand until there was healthy bleeding granular tissue. Adequate hemostasis was present. Sterile bandages were applied to both extremities consisting of Adaptic, 4 x 4 gauze Kerlix and Ranjit wraps. Patient tolerated anesthesia and the procedure well escorted recovery room vital signs stable and vascular status intact and adequate hemostasis to both lower extremities. Patient's blood had been obtained by the perfusion team and spun into PRP which was applied to the wounds on the right and left lower extremities. Patient's did have an injury to his right second toenail as he said it got snagged on his sock and the toenail did come off during prep of the right foot.
[2018-12-12] MEDS ORDERED: Sennosides/Docusate Sodium TABLET PO PRN (12:38)
[2018-12-12] MEDS ORDERED: Ondansetron 4 MG/2 ML VIAL IVP PRN (12:38)
[2018-12-12] MEDS ORDERED: *HR* OxyCODONE/APAP 5/325 TABLET PO PRN (12:38)
[2018-12-12] MEDS ORDERED: *HR* LORazepam 2 MG/ML VIAL IVP PRN ×3 (12:38)
[2018-12-12] MEDS ORDERED: Naloxone 0.4 MG/ML INJ IVP PRN (12:38)
[2018-12-12] MEDS ORDERED: Acetaminophen 325 MG TABLET PO PRN (12:38)
--- NOTE | 2018-12-12 19:19 | Podiatry Progress Note ---
Date of Encounter: 12/12/18 Time of Encounter: 19:15 Subjective Interval history: discussed with patient his surgical procedure findings and again with him yen if he smokes, drinks does not elevate his legs and does not eat food and only drinks that he will develop necrosis again and ultimately bone infection and he will need to have his leg cut off. he says he understands and will do it. racheal root we did discuss if his wound looks granular and not turning black wound vac can go on and be changed in wound (his wound vac is currently in wound care)- will need white foam or adaptic then black foam, will have wound vac on one or both sides. if any of the wounds look kumar or starting to turn necrotic will use adaptic and santyl. Cristina the podiatry SENIOR PROGRAM ANALYST will be around to see him. If he does not have his antibiotics set up, I discussed with him not leaving although he says he is going to leave AMA. patient will f/u sunday in wound care. patient says he understands what I told him and thanked me. Objective - Vital Signs Vital Signs: Vital Signs Temp Pulse Resp BP Pulse Ox 12/12/18 19:05 97.2 F L 75 17 146/75 96 12/12/18 13:11 98.0 F 71 16 118/72 96 12/12/18 12:40 97.8 F 68 15 122/78 97 12/12/18 07:26 97.8 F 63 16 117/73 93 12/12/18 03:14 98 F 60 18 118/73 96 12/11/18 23:48 12 98 12/11/18 23:11 97.7 F 70 135/75 99 Intake and Output 12/12/18 12/12/18 12/12/18 07:59 15:59 23:59 Intake Total 1099 / 2099 1000 / 2099 Output Total Balance 1099 / 2089 99 / 2089 Intake: IV Fluids 1099 / 2099 0.9 % Sodium Chloride 1,000 ML 999 / 1999 999 / 1999 @ 125 mls/hr IVC .Q8H [facility] Rx#: [id number] Zosyn 3.375 GM In 0.9 % Sodium 100 / 100 Chloride (Mini-Bag +) 100 ML @ 25 mls/hr IVPB Q8HR [facility] Rx#: [id number] Output: Estimated Blood Loss Other: # Voids 1 1 Weight 129.3 kg Blood Glucose* 106 171 Patient Weight 12/12/18 23:59 Weight 129.3 kg - Lab Result Diagrams: 12/11/18 03:52 12/11/18 03:52 Labs: Abnormal lab results RBC 3.24 M/mcL (4.19-5.50) L 12/11/18 03:52 Hgb 10.7 g/dL (12.9-16.9) L 12/11/18 03:52 Hct 32.5 % (37.5-50.1) L 12/11/18 03:52 MCV 100.3 fL (83.0-100.0) H 12/11/18 03:52 Plt Count 118 K/mcL (140-400) L 12/11/18 03:52 ESR 55 mm/hr (0-10) H 12/09/18 11:55 PT 14.4 Seconds (9.4-12.1) H 12/10/18 04:03 APTT 53.3 Seconds (26.0-36.0) H 12/10/18 04:03 Chloride 108 mEq/L (98-107) H 12/11/18 03:52 Glucose 110 mg/dL (70-105) H 12/09/18 11:34 POC Glucose 171 mg/dL (70-99) H 12/12/18 15:33 Total Bilirubin 1.1 mg/dL (0.3-1.0) H 12/10/18 04:03 Alkaline Phosphatase 165 Units/L (34-104) H 12/10/18 04:03 C-Reactive Protein 34 mg/L (Less than 10) H 12/09/18 11:34 Serum Total Protein 6.3 g/dL (6.4-8.9) L 12/10/18 04:03 Albumin 3.0 g/dL (3.5-5.7) L 12/10/18 04:03 Albumin/Globulin Ratio 0.9 (1.1-2.2) L 12/10/18 04:03 Triglycerides 229 mg/dL (< 150) H 12/10/18 04:03 VLDL Cholesterol, Calc 46 mg/dL (< 31) H 12/10/18 04:03 HDL Cholesterol 32 mg/dL (40-59) L 12/10/18 04:03 Vancomycin Trough 15 mcg/mL (5-10) H 12/11/18 03:52 Microbiology, Last 48 Hours 12/12/18 12:41 Anaerobic Culture - Preliminary Left Ankle Culture is incubating. 12/09/18 12:00 Anaerobic Culture - Final Left Leg 12/09/18 12:00 Wound Culture - Final Left Leg Proteus mirabilis Consult Discharge Plan - Plan Referrals: Froylan Guido MD [Primary Care Provider] -
[2018-12-12] MEDS ORDERED: RisperiDAL 3 MG TABLET PO SCH (21:00)
[2018-12-13] MEDS: Piperacillin/Tazobactam 3.375 GM in 0.9 % Sodium Chloride Mini Bag 100 ML IVPB SCH ×2 (00:23→10:21)
[2018-12-13] MEDS: *HR* Heparin 5,000 UNIT/ML VIAL SQ SCH (05:27)
[2018-12-13] MEDS: 0.9 % Sodium Chloride 1,000 ML IVC SCH (05:29)
[2018-12-13] MEDS: *HR* OxyCODONE/APAP 10/325 TABLET PO PRN ×3 (05:31→14:39)
[2018-12-13] MEDS ORDERED: risperiDONE 1 MG TABLET PO SCH (09:00)
[2018-12-13] MEDS ORDERED: Lisinopril 20 MG TABLET PO SCH (09:00)
[2018-12-13] MEDS ORDERED: Nicotine 21 MG PATCH.TD24 TD SCH (09:00)
[2018-12-13] MEDS ORDERED: hydroCHLOROthiazide 25 MG TABLET PO SCH (09:00)
--- NOTE | 2018-12-13 10:06 | Infectious Disease Progress No ---
ID Progress Note Date of Encounter: 12/13/18 Time of Encounter: 10:04 - Subjective Subjective: Patient seen and examined. No acute events noted overnight. Patient complains of pain in the left ankle all the time and worse with dressing changes and states right foot only painful with dressing changes. Denies fevers, chills, rigors. Denies chest pain, shortness of breath, or cough. Denies nausea, vomiting, or constipation. Reports some loose stool last night and this morni ng. Denies abdominal pain or urinary complaints. Denies oral thrush or skin rashes. Seen with Podiatry at bedside. - Objective CBC & Chem 7: 12/11/18 03:52 12/11/18 03:52 - Exam Vitals: Temp Pulse Resp BP Pulse Ox 98.3 F 64 18 125/73 95 12/13/18 07:00 12/13/18 07:00 12/13/18 07:00 12/13/18 07:00 12/13/18 07:00 Exam: Head: Atraumatic, normal inspection, normocephalic. Eye: EOMI, PERRLA, no scleral icterus noted. ENT: Mucous membranes moist. No odontogenic infection noted. Neck: Normal inspection, no meningismus. Respiratory: Clear to auscultation. No rales, respiratory distress, rhonchi, or wheezes noted. Cardiovascular: Regular rate and rhythm, S1 and S2 audible. No murmurs, rubs, or gallops. GI: Soft, obese, normal bowel sounds. Non-tender. Extremities: 2+ edema noted to the LLE. Left ankle surgical site with large skin defect with beefy red wound bed. No surrounding erythema or foul odor noted. Bone is exposed. Right foot dressing C/D/I. Neurological: Alert, oriented 3, no focal deficits. Psychiatric: normal affect, normal mood. Skin: Dry, intact, warm. Normal color. No rashes. - Assessment and Plan (1) Nonhealing surgical wound Status: Acute Location: Left lateral ankle. Etiology: Likely secondary to poor vasculature plus tobacco abuse plus for nutrition secondary to heavy alcohol use. Status post excisional debridement left foot wound into the subcutaneous tissue 10/09/[address] Mancia. Developed postop wound infection. Causative organism was Proteus mirabilis. Treated with 5 weeks of IV ertapenem. Status post perforation of left leg wound for grafting harvesting of split- thickness graft from left thigh and application of graft 11/06/[address] Bower. Status post excisional debridement of left leg wound with debridement of peroneal tendon and application of graft 12/05/[address] Mancia. Developed postop necrosis of the wound. Swab cultures of the wound are positive for Proteus mirabilis. Foul odor noted, but no surrounding cellulitis. MRI shows extensive myositis throughout the lateral compartment, but no osteo- myelitis or abscess. Podiatry consulted. Status post excisional debridement of the left ankle and right foot 12/12/[address] Bower. Intra-op cultures obtained and pending. ESR and CRP elevated. Currently on vancomycin and Zosyn. Qualifiers: Encounter type: initial encounter Qualified Code(s): T81.89XA - Other complications of procedures, not elsewhere classified, initial encounter SNOMED Code(s): 306499003 (2) Heel ulcer Status: Acute Location: Right heel. Chronic. Podiatry consult and following. Status post excisional debridement 12/12/[address] Bower. Clinically does not appear infected. Qualifiers: Laterality: unspecified laterality Non-pressure ulcer stage: with fat layer exposed Qualified Code(s): L97.402 - Non-pressure chronic ulcer of unspecified heel and midfoot with fat layer exposed SNOMED Code(s): 785514183 (3) COPD (chronic obstructive pulmonary disease) Status: Chronic Qualifiers: COPD type: unspecified COPD Qualified Code(s): J44.9 - Chronic obstructive pulmonary disease, unspecified SNOMED Code(s): 46470888 (4) Tobacco abuse Status: Chronic States he smokes 1-1-1/2 packs of cigarettes per day. Nicotine replacement therapy per the primary team. SNOMED Code(s): 585005045 (5) Alcohol abuse Status: Chronic States he is down from drinking 30 beers per day to 8-12 beers per day. Discussed the importance of cessation of all alcohol to aid in improvement in his nutritional status and increase wound healing. SNOMED Code(s): 11983460 (6) Depression with anxiety Status: Chronic SNOMED Code(s): 381946150 (7) CHLOE (obstructive sleep apnea) Status: Chronic SNOMED Code(s): 12303865 (8) Morbid obesity Status: Chronic SNOMED Code(s): 563333350 (9) Diabetes mellitus Status: Chronic Hemoglobin A1c 5.2%. Recommend aggressive glucose monitoring and control to promote healing and prevent reinfection. Management per the primary team. Qualifiers: Diabetes mellitus type: type 2 Diabetes mellitus assisted insulin use: without assisted use Diabetes mellitus complication status: with skin complications Diabetes mellitus complication detail: with foot ulcer Qualified Code(s): E11.621 - Type 2 diabetes mellitus with foot ulcer; L97.509 - Non-pressure chronic ulcer of other part of unspecified foot with unspecified severity SNOMED Code(s): 80508672 (10) HTN (hypertension) Status: Chronic Qualifiers: Hypertension type: essential hypertension Qualified Code(s): I10 - Essential (primary) hypertension SNOMED Code(s): 20656037 (11) Diarrhea Status: Acute Likely secondary to antibiotics. Low index of suspicion for C. diff. Start probiotics. Qualifiers: Diarrhea type: unspecified type Qualified Code(s): R19.7 - Diarrhea, unspecified SNOMED Code(s): 02987629 - Recommendations Recommendations: Await blood cultures to finalize. Await intraoperative cultures. Wound care per podiatry recommendations. Discontinue Vancomycin and Zosyn. Start Ertapenem 1 gram IV daily based on susceptibilities and ease of doing in the home. Duration of treatment depends on the clinical picture, but likely 4-6 weeks since the bone is exposed. Will plan to follow how the patient does clinically a nd his inflammatory markers and base duration of treatment on that. Continue IV antibiotics until seen in the ID clinic. Monitor renal function for drug toxicity and dose-adjust antibiotics. Consult VAT for midline placement. Will need weekly CBC, BUN/Cr, ESR, CRP. Will need weekly midline care per protocol. Follow up with ID 01/09/19 at 1400. Consult Discharge Plan - Plan Instructions: Diabetes Mellitus Type 2 in Adults (DC) Additional Instructions: Follow up in wound care center on Sunday Change right heel dressing daily. Cleanse with warm water and mild soap daily. Place santyl, nickel thick, to wound bed. Cover with 4x4 dry gauze, kerlix, and medipore tape Leave wound vac in place until Sunday Referrals: [facility] [Other] (Appointment Saturday, December 16 @ 3:30 PM) Froylan Guido MD [Primary Care Provider] - Cristina Avila CNP [Advanced Practice Nurse] - 01/09/19 2:00 pm Prescriptions: Ertapenem [INVanz] 1,000 mg IM DAILY #42 vial - Attending Attestation I have personally performed a face to face evaluation on this patient. I have reviewed and agree with the care plan. History and Exam by me shows: Assessment and plan: 1.Nonhealing surgical wound of the left lateral ankle likely secondary to poor vasculature, heavy alcohol use and tobacco abuse. 2.Heel ulcer on the right 3.COPD 4.Diabetes mellitus type 2 5.Multiple antibiotic allergies Recommendations Continue vancomycin IV. Pharmacy to dose. Continue Zosyn 3.375 g IV every 8 hours for now. Will tailor antibiotics according to culture results Clinical vancomycin trough around 15 Monitor labs and for drug toxicity Duration of treatment depends on the clinical picture.
--- NOTE | 2018-12-13 10:16 | Podiatry Progress Note ---
Date of Encounter: 12/13/18 Time of Encounter: 10:14 - Assessment and Plan (1) Diabetic ulcer of left lower leg Current Visit: Yes Status: Acute Assessment: S/P excisional debridement of left leg, debridement of peroneal tendon, and amniox graft placement with Dr. Bower on 12/05/18 S/P excisional debridement left leg wound down to tendon/deep fascia and excisonal debridement right foot wound into subcutaneous tissue with Dr. Bower on 12/12/18 Bone exposure noted to left lateral wound, wound bed red and beefy No odor, no active drainage noted WBC 4.7, afebrile, no labs since 12/11 ESR 55, CRP 34 XR negative for OM Blood cultures, anaerobic cultures, and surgical cultures pending ABIs showed normal hemodynamics TCPO2 consistent with healing Plan: Wound vac placed to left lateral lower extremity, see below Nursing to get patient home wound vac from wound care center, nurse and staff notified Follow up in wound care center on Sunday, patient aware Leave vac in place until wound care appointment Cleansed with 0.9 NS. Prepped skin with skin prep. Placed 4x4 dry gauze to periwound area, proximally. Placed tegaderm drape in window pane fashion. Placed white foam to bone and black granulafoam to wound bed. Covered with tegaderm drape. Placed to suction at -125 mmHG. Good seal noted. Secured with drain sponge, kerlix, and medipore tape. Impression: XR/XR tibia fibula LT IMPRESSION: No osteomyelitis is identified. Degenerative changes seen at the ankle joint with calcaneal spurring noted. Degenerative changes in the knees as well. D/ / Cm Aleman MD / Cm Aleman MD Interpreting Provider: Cm Aleman MD (2) Diabetic ulcer of right heel Current Visit: Yes Status: Acute Assessment: S/P excisional debridement left leg wound down to tendon/deep fascia and exci brianna debridement right foot wound into subcutaneous tissue with Dr. Bower on 12/12/18 Yellow brown slough noted to wound bed as well as red, beefy areas Periwound erythematous WBC 4.7, afebrile, ESR 54, CRP 3 Blood cultures pending Plan: Dressing changed, see below Continue daily dressing changes, orders placed Follow up in wound care on Sunday, patient aware Cleansed with 0.9 NS, placed santyl, nickel thick, to wound bed, covered with 4x4 dry gauze, kerlix, and medipore tape Impression: XR/XR foot 3V RT IMPRESSION: No acute bony abnormality. If there is high clinical concern for acute osteomyelitis, consider further evaluation with MRI. D/ / Bryan Fuentes / Bryan Fuentes Interpreting Provider: Bryan Fuentes Qualifiers: Diabetes mellitus type: type 2 Non-pressure ulcer stage: with necrosis of muscle Qualified Code(s): E11.621 - Type 2 diabetes mellitus with foot ulcer; L97.413 - Non-pressure chronic ulcer of right heel and midfoot with necrosis of muscle Subjective Principal diagnosis: Necrosis Interval history: Patient awake in bed. Alert and oriented x 3. Patient states he is going home today. Awaiting IV placement as well as dressing changes. Discussed with patient need for wound vac to left lower extremity. Discussed not placing wound vac to right heel as tissue appears dark, instead will continue placing santyl to right heel. Patient verbalized understanding. States he is leaving today so that he can see his grandchildren. Home wound vac in wound care center, nurse and staff notified to place prior to leaving hospital. Patient denies fevers, chills, nausea, vomiting. Reports diarrhea x 2 episodes. Denies calf pain, chest pain, or shortness of breath. Reports general pain to left calf d/t wound, nothing worse than normal. No other questions or concerns at this time. Objective - Vital Signs Vital Signs: Vital Signs Temp Pulse Resp BP Pulse Ox 12/13/18 07:00 98.3 F 64 18 125/73 95 12/13/18 03:20 9 96 12/13/18 03:08 97.6 F 62 19 110/68 95 12/13/18 00:18 9 99 12/12/18 22:17 21 98 12/12/18 22:03 97.7 F 68 19 124/74 97 12/12/18 19:05 97.2 F L 75 17 146/75 96 12/12/18 13:11 98.0 F 71 16 118/72 96 12/12/18 12:40 97.8 F 68 15 122/78 97 Intake and Output 12/12/18 12/13/18 12/13/18 23:59 07:59 15:59 Intake Total 1100 / 3200 1100 / 1100 Balance 1100 / 3190 1100 / 1100 Intake: IV Fluids 1100 / 3200 1100 / 1100 0.9 % Sodium Chloride 1,000 ML 1000 / 1000 1000 / 1000 @ 125 mls/hr IVC .Q8H [facility] Rx#: [id number] Zosyn 3.375 GM In 0.9 % Sodium 100 / 100 100 / 100 Chloride (Mini-Bag +) 100 ML @ 25 mls/hr IVPB Q8HR [facility] Rx#: [id number] Other: # Voids 1 Blood Glucose* 139 127 - Exam Exam: Constitiutional: Alert and oriented x 3. Well nourished. No acute distress noted Vascular: 1/4 DP/PT bilaterally, CFT <3 sec to all digits, warm to warm from tibia to toes bilaterally, no calf pain with squeeze BLE, reports general pain to left calf Neurologic: Diminished sensation to touch, normal plantar response Dermatologic: Left lateral calf ulceration with bone exposed, wound bed red and beefy, moderate sanginous drainage noted, right calcaneous ulceration with ye llow brown slough noted to wound bed, as well as areas of red, beefy tissue. Musculoskeletal: 3/5 muscle strength and normal tone bilaterally. - Lab Result Diagrams: 12/11/18 03:52 12/11/18 03:52 Labs: Abnormal lab results RBC 3.24 M/mcL (4.19-5.50) L 12/11/18 03:52 Hgb 10.7 g/dL (12.9-16.9) L 12/11/18 03:52 Hct 32.5 % (37.5-50.1) L 12/11/18 03:52 MCV 100.3 fL (83.0-100.0) H 12/11/18 03:52 Plt Count 118 K/mcL (140-400) L 12/11/18 03:52 ESR 55 mm/hr (0-10) H 12/09/18 11:55 PT 14.4 Seconds (9.4-12.1) H 12/10/18 04:03 APTT 53.3 Seconds (26.0-36.0) H 12/10/18 04:03 Chloride 108 mEq/L (98-107) H 12/11/18 03:52 Glucose 110 mg/dL (70-105) H 12/09/18 11:34 POC Glucose 171 mg/dL (70-99) H 12/12/18 15:33 Total Bilirubin 1.1 mg/dL (0.3-1.0) H 12/10/18 04:03 Alkaline Phosphatase 165 Units/L (34-104) H 12/10/18 04:03 C-Reactive Protein 34 mg/L (Less than 10) H 12/09/18 11:34 Serum Total Protein 6.3 g/dL (6.4-8.9) L 12/10/18 04:03 Albumin 3.0 g/dL (3.5-5.7) L 12/10/18 04:03 Albumin/Globulin Ratio 0.9 (1.1-2.2) L 12/10/18 04:03 Triglycerides 229 mg/dL (< 150) H 12/10/18 04:03 VLDL Cholesterol, Calc 46 mg/dL (< 31) H 12/10/18 04:03 HDL Cholesterol 32 mg/dL (40-59) L 12/10/18 04:03 Vancomycin Trough 15 mcg/mL (5-10) H 12/11/18 03:52 Microbiology, Last 48 Hours 12/12/18 12:41 Anaerobic Culture - Preliminary Left Ankle Culture is incubating. 12/09/18 12:00 Anaerobic Culture - Final Left Leg 12/09/18 12:00 Wound Culture - Final Left Leg Proteus mirabilis Consult Discharge Plan - Plan Additional Instructions: Follow up in wound care center on Sunday Change right heel dressing daily. Cleanse with warm water and mild soap daily. Place santyl, nickel thick, to wound bed. Cover with 4x4 dry gauze, kerlix, and medipore tape Leave wound vac in place until Sunday Referrals: Froylan Guido MD [Primary Care Provider] - Cristina Avila CNP [Advanced Practice Nurse] - 01/09/19 2:00 pm
[2018-12-13] MEDS: Fluticasone Propionate Nasal 50 MCG/SPRAY BOTTLE NS SCH (10:22)
[2018-12-13] MEDS: Pregabalin 75 MG CAPSULE PO SCH ×2 (10:23→14:38)
[2018-12-13] MEDS: Metoprolol XL (24 HR) Succ 50 MG TAB.ER.24H PO SCH (10:23)
[2018-12-13 12:20] VITALS: BP 128/76
--- NOTE | 2018-12-13 13:26 | Discharge Summary ---
- NOTES TO OUTPATIENT PROVIDER Notes to Outpatient Provider: Pt admitted and treated for left lower extremity diabetic foot ulcer. Patient had surgical debridement on 12/12/18. Patient will be discharged with wound VAC in place on left ankle and IV midline in place. He will receive IV ertapenem for at least 4 weeks. He will follow-up with infectious disease and podiatry outpatient. Wound cultures grew Proteus mirabilis. Orders not resulted at time of discharge: Pending orders 12/09/18 11:55 Culture,Blood [BC] Stat 12/12/18 12:41 Culture,Anaerobic [RM] Routine 12/13/18 08:23 Culture,Wound [RM] Routine Date of Encounter: 12/13/18 Time of Encounter: 13:24 - Discharge Diagnosis (1) Diabetic ulcer of left lower leg Priority: Primary Status: Acute (2) Alcohol abuse Priority: Secondary Status: Chronic (3) Diabetes mellitus Priority: Secondary Status: Chronic Qualifiers: Diabetes mellitus type: type 2 Diabetes mellitus nursing home insulin use: without nursing home use Diabetes mellitus complication status: with skin complications Diabetes mellitus complication detail: with foot ulcer Qualified Code(s): E11.621 - Type 2 diabetes mellitus with foot ulcer; L97.509 - Non-pressure chronic ulcer of other part of unspecified foot with unspecified severity (4) Sleep apnea Priority: Secondary Status: Chronic Qualifiers: Sleep apnea type: unspecified type Qualified Code(s): G47.30 - Sleep apnea, unspecified Hospital course: Mr. Parish is a 48 year old male with a past medical history diabetes, hypertension, GERD, alcohol abuse, and history of diabetic foot ulcers. Presented to the emergency room from wound clinic for continued evaluation. He had surgery on his lateral aspect of his left ankle on 12/05/18. Surgery was a d ebridement of nonhealing diabetic ulcer. Following surgery he was sent home with wound VAC in place. He reported increased pain since her surgery. Denied fevers, chills, or increased difficulty with ambulation. He had presented to outpatient clinic on 12/09/18. He was told to go to the emergency room for further treatment. He has had multiple issues in the past with poorly healing ulcers on both feet and ankles. Previously requiring PICC line for outpatient IV antibiotics, and skin grafts. When seen in the emergency room he was sitting comfortably in bed, only complaint was some mild pain in his left ankle. Podiatry was consulted. Cultures of wound on left ankle were obtained. Cultures grew Proteus mirabilis. Surgical debridements of left ankle and right heel was performed on 12/12/18. Infectious disease was consulted for antibiotic recommendations. Wound VAC was placed on left ankle and PICC line was placed before discharge. Patient was discharged with IV ertapenem to be taken for at least 4 weeks. He will follow-up on 12/16/18 in wound care clinic. He will follow-up with infectious disease outpatient. DX: Diabetic ulcer of the left ankle Consults: - Podiatry - Infectious disease Tests/Reults: - Wound culture: Proteus mirabilis - Left lower extremity MRI: Extensive myositis, no evidence of osteomyelitis Follow-up: - Primary care - Wound care - Infectious disease - Time Spent with Patient Total time spent providing and/or coordinating discharge services: - Discharge Medications Prescriptions: New Ertapenem [INVanz] 1,000 mg IM DAILY #42 vial Continued Omeprazole [PriLOSEC] 40 mg PO DAILY [place]-3/Dha/Epa/Fish Oil [Fish Oil 1,000 mg Softgel] 2,000 mg PO BID Albuterol Sulfate [Proventil Inhaler] 2 puff IH Q4HR PRN PRN Reason: Shortness Of Breath Pregabalin [Lyrica] 150 mg PO TID Loratadine [Claritin] 10 mg PO DAILY diazePAM [Valium] 10 mg PO 2-3XD PRN PRN Reason: Anxiety. Atorvastatin [Lipitor] 40 mg PO HS Collagenase Oint [Santyl] 1 appl TP DAILY Fluticasone Propionate Nasal [Flonase] 1 spr NS BID risperiDONE [Risperdal] 2 mg PO QAM Meloxicam [Mobic] 15 mg PO DAILY glipiZIDE [Glipizide] 10 mg PO BID hydroCHLOROthiazide [Hydrochlorothiazide] 25 mg PO DAILY Ibuprofen [Motrin] 600 mg PO BID PRN PRN Reason: Pain Metformin HCl 500 mg PO BIDWM PRN PRN Reason: Blood Sugar - High Metoprolol Succinate [Toprol Xl] 100 mg PO BID Multivitamin [One Daily] 1 tab PO QAM Quinapril HCl [Accupril] 40 mg PO DAILY risperiDONE [Risperdal] 3 mg PO HS Sennosides/Docusate Sodium [Senna Plus] 1 tab PO DAILY PRN PRN Reason: Constipation Oxycodone HCl/Acetaminophen [Percocet 5-325 mg Tablet] 1 each PO Q4-6H PRN 2 Days #8 tablet PRN Reason: Pain Ondansetron ODT [Zofran ODT] 4 mg SL Q8HR PRN #12 tab.rapdis PRN Reason: Nausea Home Medications: Albuterol Sulfate [Proventil Inhaler] 2 puff IH Q4HR PRN 04/06/16 [History] [place]-3/Dha/Epa/Fish Oil [Fish Oil 1,000 mg Softgel] 2,000 mg PO BID 04/06/16 [History] Omeprazole [PriLOSEC] 40 mg PO DAILY 04/06/16 [History] Loratadine [Claritin] 10 mg PO DAILY 12/21/16 [History] Pregabalin [Lyrica] 150 mg PO TID 12/21/16 [History] diazePAM [Valium] 10 mg PO 2-3XD PRN 09/05/17 [History] Atorvastatin [Lipitor] 40 mg PO HS 03/13/18 [History] Collagenase Oint [Santyl] 1 appl TP DAILY 03/13/18 [History] Fluticasone Propionate Nasal [Flonase] 1 spr NS BID 03/13/18 [History] risperiDONE [Risperdal] 2 mg PO QAM 03/13/18 [History] Ibuprofen [Motrin] 600 mg PO BID PRN 10/08/18 [History] Meloxicam [Mobic] 15 mg PO DAILY 10/08/18 [History] Metformin HCl 500 mg PO BIDWM PRN 10/08/18 [History] Metoprolol Succinate [Toprol Xl] 100 mg PO BID 10/08/18 [History] Multivitamin [One Daily] 1 tab PO QAM 10/08/18 [History] Quinapril HCl [Accupril] 40 mg PO DAILY 10/08/18 [History] Sennosides/Docusate Sodium [Senna Plus] 1 tab PO DAILY PRN 10/08/18 [History] glipiZIDE [Glipizide] 10 mg PO BID 10/08/18 [History] hydroCHLOROthiazide [Hydrochlorothiazide] 25 mg PO DAILY 10/08/18 [History] risperiDONE [Risperdal] 3 mg PO HS 10/08/18 [History] Ondansetron ODT [Zofran ODT] 4 mg SL Q8HR PRN #12 tab.rapdis 12/05/18 [Rx] Oxycodone HCl/Acetaminophen [Percocet 5-325 mg Tablet] 1 each PO Q4-6H PRN 2 Days #8 tablet 12/05/18 [Rx] Ertapenem [INVanz] 1,000 mg IM DAILY #42 vial 12/13/18 [Rx] Allergies/Adverse Reactions: Allergy/AdvReac Type Severity Reaction Status Date / Time hydrocodone [From Vicodin] AdvReac Severe Nausea, Verified 12/10/18 20:19 Vomiting, Hives cephalexin [From Keflex] AdvReac Vomiting Verified 12/10/18 20:19 codeine AdvReac Confusion, Verified 12/10/18 20:19 GI Upset morphine AdvReac Rash, Verified 12/10/18 20:19 Hives, Vomiting Date of admission: 12/12/18 16:40 Primary care physician: Froylan Guido MD Consults: 12/09/18 13:10 Consult to Podiatry [CONS] Stat Consulting Provider: Podiatry [facility] Reason for Consult: Left leg wound Time Notified: 13:11 Call Completed: Yes 12/09/18 17:59 Consult to Employee Benefits Director [CONS] Routine Reason for SW Consult: Chronic alcohol abuse 12/10/18 11:37 Consult to Infectious Diseases [CONS] Routine Consulting Provider: [facility] Reason for Consult: L lower extremity Unhealing ulcer Call Completed: No Consult to Wound Care [CONS] Routine Reason for Consult: L lower extremity unhealing ulcer Call Completed: No 12/13/18 08:42 Consult to PICC team [Consult to Invasive Line Access Team] [CONS] Routine Reason for Consult: PICC placement for IV antibiotics * Midline for IV antibiotics. Not PICC Line Type: PICC - Constitutional Vitals: Temp Pulse Resp BP Pulse Ox 98.0 F 60 18 128/76 96 12/13/18 12:19 12/13/18 12:19 12/13/18 12:19 12/13/18 12:19 12/13/18 12:19 Exam: Gen: Vitals noted. No acute distress. Eyes: anicteric sclerae, moist conjunctivae. Pupils equal, round, and reactive to light HENT: Atraumatic, normocephalic; oropharynx clear with moist mucous membranes and no mucosal ulcerations Neck: Trachea midline; supple, no thyromegaly or lymphadenopathy Cardiac: RRR, no murmurs, rubs or gallops, S1/S2 Pulmonary: CTA bilaterally, no wheezes, rales or rhonchi, equal chest expansion Abdomen: soft, nontender, no rigidity or guarding. No masses or hepatosplenomegaly MSK: ROM intact, no joint swelling noted Extremities: no BLE edema, nontender calf, no cyanosis or clubbing. R and L feet/ankles wrapped in bandages. Clean and dry Skin: Normal temperature, turgor and texture; no rash, ulcers or subcutaneous nodules. Multiple spider angiomata noted on chest. Neuro: moves all extremities, no focal deficits. Psych: Appropriate mood and behavior. A&Ox3 - Patient Status Disposition: Home Health Service Condition: Good - Discharge Instructions Instructions: Diabetes Mellitus Type 2 in Adults (DC) Follow Up With: Wound Care Clinic [Other] (Appointment Saturday, December 16 @ 3:30 PM) Froylan Guido MD [Primary Care Provider] - Cristina Avila CNP [Advanced Practice Nurse] - 01/09/19 2:00 pm Forms: ED Satisfaction Letter, Work/School Release Additional Instructions: Follow up in wound care center on Sunday Change right heel dressing daily. Cleanse with warm water and mild soap daily. Place santyl, nickel thick, to wound bed. Cover with 4x4 dry gauze, kerlix, and medipore tape Leave wound vac in place until Sunday
[2018-12-13] MEDS ORDERED: Lactobacillus 1 EACH CAP.SPRINK PO SCH (14:00)
[2018-12-13] MEDS ORDERED: Ertapenem 1,000 MG in 0.9 % Sodium Chloride Mini Bag 100 ML IVPB SCH (14:00)
--- NOTE | 2018-12-13 14:13 | Physician Discharge Referral ---
Home Health/Hosp Referral Info Transfer to: Home Health - Diagnosis (1) Diabetic ulcer of left lower leg Priority: Primary Status: Acute (2) Alcohol abuse Priority: Secondary Status: Chronic (3) Diabetes mellitus Priority: Secondary Status: Chronic (4) Sleep apnea Priority: Secondary Status: Chronic - Respiratory Orders None Smoking Cessation: Smoking cessation has been advised. For more information, call the [place] Tobacco Quit Line at 5-558-FILN-NOW. - Services Needed Following services are medically necessary services: Nursing, Home Health Aide Other Treatments: Need for daily wound/wound vac care. Need for IV antibiotic administration. - Transfer Medications Prescriptions: Ertapenem [INVanz] 1,000 mg IM DAILY #42 vial Home Medications: Albuterol Sulfate [Proventil Inhaler] 2 puff IH Q4HR PRN 04/06/16 [History] [place]-3/Dha/Epa/Fish Oil [Fish Oil 1,000 mg Softgel] 2,000 mg PO BID 04/06/16 [History] Omeprazole [PriLOSEC] 40 mg PO DAILY 04/06/16 [History] Loratadine [Claritin] 10 mg PO DAILY 12/21/16 [History] Pregabalin [Lyrica] 150 mg PO TID 12/21/16 [History] diazePAM [Valium] 10 mg PO 2-3XD PRN 09/05/17 [History] Atorvastatin [Lipitor] 40 mg PO HS 03/13/18 [History] Collagenase Oint [Santyl] 1 appl TP DAILY 03/13/18 [History] Fluticasone Propionate Nasal [Flonase] 1 spr NS BID 03/13/18 [History] risperiDONE [Risperdal] 2 mg PO QAM 03/13/18 [History] Ibuprofen [Motrin] 600 mg PO BID PRN 10/08/18 [History] Meloxicam [Mobic] 15 mg PO DAILY 10/08/18 [History] Metformin HCl 500 mg PO BIDWM PRN 10/08/18 [History] Metoprolol Succinate [Toprol Xl] 100 mg PO BID 10/08/18 [History] Multivitamin [One Daily] 1 tab PO QAM 10/08/18 [History] Quinapril HCl [Accupril] 40 mg PO DAILY 10/08/18 [History] Sennosides/Docusate Sodium [Senna Plus] 1 tab PO DAILY PRN 10/08/18 [History] glipiZIDE [Glipizide] 10 mg PO BID 10/08/18 [History] hydroCHLOROthiazide [Hydrochlorothiazide] 25 mg PO DAILY 10/08/18 [History] risperiDONE [Risperdal] 3 mg PO HS 10/08/18 [History] Ondansetron ODT [Zofran ODT] 4 mg SL Q8HR PRN #12 tab.rapdis 12/05/18 [Rx] Oxycodone HCl/Acetaminophen [Percocet 5-325 mg Tablet] 1 each PO Q4-6H PRN 2 Days #8 tablet 12/05/18 [Rx] Ertapenem [INVanz] 1,000 mg IM DAILY #42 vial 12/13/18 [Rx] Allergies/Adverse Reactions: Allergy/AdvReac Type Severity Reaction Status Date / Time hydrocodone [From Vicodin] AdvReac Severe Nausea, Verified 12/10/18 20:19 Vomiting, Hives cephalexin [From Keflex] AdvReac Vomiting Verified 12/10/18 20:19 codeine AdvReac Confusion, Verified 12/10/18 20:19 GI Upset morphine AdvReac Rash, Verified 12/10/18 20:19 Hives, Vomiting Certification: Further, I certify that my clinical findings support that this patient is homebound (i.e. absences from home require considerable and taxing effort and are for medical reasons or islam services or infrequently or short duration when for other reasons) because: Homebound Reason: Patient requires assistance of a person or device to safely leave home Attestation: My signature below is to certify that this patient is under my care and that I, or nurse practitioner, or a physician's quality assistant working with me, has a [id number] encounter with this patient.
== END 2018-12-13 16:41 | disposition home health service (06) | DRG 711 ==
LOC: 3ANU 11:05 → EMEROOARM 11:05 → SUATTDRO 14:30 → 3ANU 15:41
PROVIDERS: ADMIT Student in an Organized Health Care Education/Training Program; ATTEND Internal Medicine

== ENCOUNTER 2019-01-15 19:53 | Observation (INO) ==
[2019-01-15] MEDS ORDERED: *HR* OxyCODONE/APAP 10/325 TABLET PO STA (20:38)
[2019-01-15 21:01] LABS: Basophils % 0.5 %; Eosinophils # 0.2 K/mcL (0.0-0.6); Eosinophils % 2.6 %; Hematocrit 37.5 % (37.5-50.1); Hemoglobin 12.4 g/dL (12.9-16.9); Immature Granulocytes % 0.3 % (0-4); Lymphocytes % 30.6 %; Mean Corpuscular HGB Conc 33.1 g/dL (31.6-35.5); Mean Corpuscular Volume 96.6 fL (83.0-100.0); Mean Platelet Volume 9.2 fL (9.4-12.4); Monocytes # 0.7 K/mcL (0.0-1.3); Monocytes % 10.7 %; Neutrophils # 3.6 K/mcL (1.6-8.9); Platelet Count 154 K/mcL (140-400); Red Blood Count 3.88 M/mcL (4.19-5.50); Red Cell Distribution Width 12.4 % (11.5-14.5); Segmented Neutrophils % 55.3 %; White Blood Count 6.5 K/mcL (4.3-11.1)
[2019-01-15 21:21] LABS: BUN/Creatinine Ratio 16 (6-26); Blood Urea Nitrogen 12 mg/dL (6-20); Calcium 9.1 mg/dL (8.6-10.3); Carbon Dioxide 21 mEq/L (23-29); Chloride 102 mEq/L (98-107); Glucose 114 mg/dL (70-105); Osmolality,Calculated 283 (280-300); Potassium 3.8 mEq/L (3.5-5.1); Sodium 136 mEq/L (136-145); eGFR For African Americans > 60 (> 60); eGFR For Non-African Americans > 60 (> 60)
[2019-01-15] MEDS ORDERED: Sennosides/Docusate Sodium TABLET PO PRN (22:28)
[2019-01-15] MEDS ORDERED: Ondansetron ODT 4 MG TAB.RAPDIS SL PRN (22:28)
[2019-01-15] MEDS ORDERED: diazePAM 10 MG TABLET PO PRN (22:28)
[2019-01-15] MEDS ORDERED: *HR* Dextrose 50 % in Water (Syg) 50 ML SYRINGE IVP PRN (22:35)
[2019-01-15] MEDS ORDERED: Dextrose Gel 15 GM/37.5 ML TUBE PO PRN ×2 (22:35)
--- NOTE | 2019-01-15 22:40 | Emergency Department Note ---
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 from WoundCare" Time Seen by Provider: 01/15/19 20:20 Source: patient Limitations: physical limitation Nursing Notes Reviewed: Yes Vital Signs Reviewed: Yes - History of Present Illness Pain Scale: 0 - Related Data Home Medications Medication Instructions Recorded Confirmed Albuterol Sulfate [Proventil 2 puff IH Q4HR PRN 04/06/16 01/15/19 Inhaler] [place]-3/Dha/Epa/Fish Oil [Fish Oil 2,000 mg PO BID 04/06/16 01/15/19 1,000 mg Softgel] Omeprazole [PriLOSEC] 40 mg PO DAILY 04/06/16 01/15/19 Loratadine [Claritin] 10 mg PO DAILY 12/21/16 01/15/19 Pregabalin [Lyrica] 150 mg PO TID 12/21/16 01/15/19 diazePAM [Valium] 10 mg PO 2-3XD PRN 09/05/17 01/15/19 Atorvastatin [Lipitor] 40 mg PO HS 03/13/18 01/15/19 Collagenase Oint [Santyl] 1 appl TP DAILY 03/13/18 01/15/19 Fluticasone Propionate Nasal 1 spr NS BID 03/13/18 01/15/19 [Flonase] risperiDONE [Risperdal] 2 mg PO QAM 03/13/18 01/15/19 Meloxicam [Mobic] 15 mg PO DAILY 10/08/18 01/15/19 Metoprolol Succinate [Toprol Xl] 100 mg PO BID 10/08/18 01/15/19 Multivitamin [One Daily] 1 tab PO QAM 10/08/18 01/15/19 Quinapril HCl [Accupril] 40 mg PO DAILY 10/08/18 01/15/19 Sennosides/Docusate Sodium [Senna 1 tab PO DAILY PRN 10/08/18 01/15/19 Plus] risperiDONE [Risperdal] 3 mg PO HS 10/08/18 01/15/19 Previous Rx's Medication Instructions Recorded Ondansetron ODT [Zofran ODT] 4 mg SL Q8HR PRN #12 tab.rapdis 12/05/18 Oxycodone HCl/Acetaminophen 1 each PO Q4-6H PRN 2 Days #8 12/05/18 [Percocet 5-325 mg Tablet] tablet Allergies Allergy/AdvReac Type Severity Reaction Status Date / Time hydrocodone [From Vicodin] AdvReac Severe Nausea, Verified 01/15/19 20:01 Vomiting, Hives cephalexin [From Keflex] AdvReac Vomiting Verified 01/15/19 20:01 codeine AdvReac Confusion, Verified 01/15/19 20:01 GI Upset morphine AdvReac Rash, Verified 01/15/19 20:01 Hives, Vomiting Past Medical History - Past Medical History Medical history: Reports: arthritis, COPD, diabetes, GERD, hypertension Surgical history: Reports: orthopedic, other, other Psychiatric history: Reports: anxiety, depression - Social History Smoking Status: Current every day smoker Smokeless Tobacco Status: No Alcohol use: Reports: heavy, recent Drug use: Reports: none Physical Exam - General Limitations: physical limitation General appearance: alert Course Vital Signs Temperature 97.9 F 01/15/19 19:55 Pulse Rate 75 01/15/19 19:55 Respiratory Rate 20 01/15/19 19:55 Blood Pressure 151/78 01/15/19 19:55 O2 Sat by Pulse Oximetry 96 01/15/19 19:55 Temperature 97.9 F 01/15/19 19:55 Pulse Rate 82 01/15/19 20:51 Respiratory Rate 20 01/15/19 22:29 Blood Pressure 128/66 01/15/19 22:29 O2 Sat by Pulse Oximetry 98 01/15/19 20:51 Oxygen Delivery Oxygen Delivery Room Air Medical Decision Making - Lab Data Lab results reviewed: Yes I reviewed the patient's lab results. Result diagrams: 01/15/19 20:48 01/15/19 20:48 Lab Results 01/15/19 01/15/19 Range/Units 20:48 20:48 WBC 6.5 (4.3-11.1) K/mcL RBC 3.88 L (4.19-5.50) M/mcL Hgb 12.4 L (12.9-16.9) g/dL Hct 37.5 (37.5-50.1) % MCV 96.6 (83.0-100.0) fL MCH 32.0 (28.0-33.3) pg MCHC 33.1 (31.6-35.5) g/dL RDW 12.4 (11.5-14.5) % Plt Count 154 (140-400) K/mcL MPV 9.2 L (9.4-12.4) fL Immature Gran % 0.3 (0-4) % Seg Neutrophils % 55.3 % Lymphocytes % 30.6 % Monocytes % 10.7 % Eosinophils % 2.6 % Basophils % 0.5 % Neutrophils # 3.6 (1.6-8.9) K/mcL Lymphocytes # 2.0 (0.6-4.6) K/mcL Monocytes # 0.7 (0.0-1.3) K/mcL Eosinophils # 0.2 (0.0-0.6) K/mcL Basophils # 0.0 (0.0-0.2) K/mcL Sodium 136 (136-145) mEq/L Potassium 3.8 (3.5-5.1) mEq/L Chloride 102 (98-107) mEq/L Carbon Dioxide 21 L (23-29) mEq/L BUN 12 (6-20) mg/dL Creatinine 0.76 (0.70-1.30) mg/dL Est GFR ( Amer) > 60 (> 60) Est GFR (Non-Af Amer) > 60 (> 60) BUN/Creatinine Ratio 16 (6-26) Glucose 114 H (70-105) mg/dL Calculated Osmolality 283 (280-300) Calcium 9.1 (8.6-10.3) mg/dL Attestation Statement - Attestation Attestation: I, Pancho Lee MD, personally evaluated this patient and discussed their management with the resident physician. I reviewed the resident's note and agree with the documented findings, medical decision making, and plan of care. 48-year-old male with history of diabetic ulcers to the right heel and left lower leg was referred to the emergency department from the [facility] to be admitted at the request of Dr. Bower, podiatry. Patient denies any fever. He was scheduled to have debridement of his wounds next week. He does have a PICC line and has been receiving IV antibiotics daily. On examination patient is a well-developed well-nourished male in no acute distress. He is alert and oriented 3. There is no cyanosis or diaphoresis. Breath sounds are clear and equal bilaterally. Heart regular rate and rhythm. Abdomen soft and nontender with normal bowel sounds. Patient has a large open wound to the lateral aspect of the left lower leg from about mid malhotra down to the ankle. This has a wound VAC in place. There is an ulceration to the right heel also with some drainage and foul odor. Labs reviewed. Blood cultures obtained. The hospitalist, Dr. Germain, was consulted and accepted admission of the patient.
--- NOTE | 2019-01-15 22:40 | Emergency Department Note ---
Disposition Clinical Impression: Osteomyelitis Qualifiers: Osteomyelitis type: unspecified type Osteomyelitis location: unspecified site Qualified Code(s): M86.9 - Osteomyelitis, unspecified Leg ulcer, left Qualifiers: Non-pressure ulcer stage: unspecified non-pressure ulcer stage Qualified Code(s): L97.929 - Non-pressure chronic ulcer of unspecified part of left lower leg with unspecified severity Heel ulcer Qualifiers: Laterality: right Non-pressure ulcer stage: with necrosis of muscle Qualified Code(s): L97.413 - Non-pressure chronic ulcer of right heel and midfoot with necrosis of muscle Disposition: Admitted As Inpatient Time of Disposition: 22:43 Extremity Problem HPI - General Chief complaint: ED Extremity Problem,Nontraumatic Stated complaint: BLE (Foot) Wound, "Ref. from WoundCare" Time Seen by Provider: 01/15/19 20:20 Source: patient Mode of arrival: ambulatory Limitations: physical limitation Nursing Notes Reviewed: Yes Vital Signs Reviewed: Yes - History of Present Illness HPI Narrative: 48M with past medical history of diabetes and lower extremity wounds, currently seeing wound care and Dr. Bower, presents to the ED for admission for debridement and continuation of antibiotic treatment for his leg wounds. Patient had a PICC line placed approximately a month ago and has been receiving IV antibiotics through the PICC line since that time for his lower extremity wounds. He does have a wound VAC on his left lower extremity. When he was at when care today pictures were sent to Dr. Bower and after reviewing these images Dr. Mancia told the patient come to the emergency department for admission. Patient denies fever, chills, chest pain, shortness of breath, abdominal pain, nausea and vomiting. Both of his feet hurt but he denies any pain anywhere. Patient states he has been compliant with his medications. Pain Scale: 0 - Related Data Home Medications Medication Instructions Recorded Confirmed Albuterol Sulfate [Proventil 2 puff IH Q4HR PRN 04/06/16 12/10/18 Inhaler] [place]-3/Dha/Epa/Fish Oil [Fish Oil 2,000 mg PO BID 04/06/16 12/10/18 1,000 mg Softgel] Omeprazole [PriLOSEC] 40 mg PO DAILY 04/06/16 12/10/18 Loratadine [Claritin] 10 mg PO DAILY 12/21/16 12/10/18 Pregabalin [Lyrica] 150 mg PO TID 12/21/16 12/10/18 diazePAM [Valium] 10 mg PO 2-3XD PRN 09/05/17 12/10/18 Atorvastatin [Lipitor] 40 mg PO HS 03/13/18 12/10/18 Collagenase Oint [Santyl] 1 appl TP DAILY 03/13/18 12/10/18 Fluticasone Propionate Nasal 1 spr NS BID 03/13/18 12/10/18 [Flonase] risperiDONE [Risperdal] 2 mg PO QAM 03/13/18 12/10/18 Meloxicam [Mobic] 15 mg PO DAILY 10/08/18 12/10/18 Metoprolol Succinate [Toprol Xl] 100 mg PO BID 10/08/18 12/10/18 Multivitamin [One Daily] 1 tab PO QAM 10/08/18 12/10/18 Quinapril HCl [Accupril] 40 mg PO DAILY 10/08/18 12/10/18 Sennosides/Docusate Sodium [Senna 1 tab PO DAILY PRN 10/08/18 12/10/18 Plus] risperiDONE [Risperdal] 3 mg PO HS 10/08/18 12/10/18 Previous Rx's Medication Instructions Recorded Ondansetron ODT [Zofran ODT] 4 mg SL Q8HR PRN #12 tab.rapdis 12/05/18 Oxycodone HCl/Acetaminophen 1 each PO Q4-6H PRN 2 Days #8 12/05/18 [Percocet 5-325 mg Tablet] tablet Allergies Allergy/AdvReac Type Severity Reaction Status Date / Time hydrocodone [From Vicodin] AdvReac Severe Nausea, Verified 01/15/19 20:01 Vomiting, Hives cephalexin [From Keflex] AdvReac Vomiting Verified 01/15/19 20:01 codeine AdvReac Confusion, Verified 01/15/19 20:01 GI Upset morphine AdvReac Rash, Verified 01/15/19 20:01 Hives, Vomiting All systems ED: reviewed and negative except as stated. Review of Systems: As Per HPI Constitutional: Denies: fever, chills, weakness Cardiovascular: Denies: chest pain, palpitations, dyspnea on exertion Respiratory: Denies: cough, dyspnea, wheezes Gastrointestinal: Denies: abdominal pain, nausea, vomiting Musculoskeletal: Reports: other (foot pain). Denies: back pain, neck pain Neurological: Denies: headache Past Medical History - Past Medical History Attestation: Yes The following information was validated with the patient. Source: patient Medical history: Reports: arthritis, COPD, diabetes, GERD, hypertension Surgical history: Reports: orthopedic, other, other Psychiatric history: Reports: anxiety, depression - Social History Smoking Status: Current every day smoker Smokeless Tobacco Status: No Alcohol use: Reports: heavy, recent Drug use: Reports: none Physical Exam - General Limitations: physical limitation General appearance: alert, in no apparent distress - Head Head exam: atraumatic, normocephalic - Eye Eye exam: Present: normal appearance, EOMI - Chest Chest inspection: Present: normal inspection. Absent: tenderness - Respiratory Respiratory exam: Present: normal lung sounds bilaterally. Absent: wheezes - Cardiovascular Cardiovascular exam: Present: regular rate, normal rhythm - Abdominal Exam Abdominal exam: Present: soft, Non-Tender. Absent: distention, guarding, rebound, rigidity - Extremities Exam Extremities exam: Present: other (Wound VAC in place on left lower extremity covering wound that is approximately 12 inches in length. Right heel wound with foul-smelling discharge. Wounds on bilateral big toes that do not appear to have any active drainage.) - Neurological Exam Neurological exam: Present: alert, oriented X3 - Psychiatric Psychiatric exam: Present: normal affect, normal mood - Skin Skin exam: Present: warm, dry Course Vital Signs Temperature 97.9 F 01/15/19 19:55 Pulse Rate 75 01/15/19 19:55 Respiratory Rate 20 01/15/19 19:55 Blood Pressure 151/78 01/15/19 19:55 O2 Sat by Pulse Oximetry 96 01/15/19 19:55 Temperature 97.9 F 01/15/19 19:55 Pulse Rate 82 01/15/19 20:51 Respiratory Rate 20 01/15/19 22:29 Blood Pressure 128/66 01/15/19 22:29 O2 Sat by Pulse Oximetry 98 01/15/19 20:51 Oxygen Delivery Oxygen Delivery Room Air Extremity Problem, Nontraumati - MDM Narrative Medical decision making narrative: Patient presents from wound care with the need for admission. We will obtain basic labs, blood cultures and plan on admission to the hospital with a consult to podiatry. [id number] - patient has been accepted by Dr. Germain for admission to the hospital. - Medical Records Medical records reviewed: Yes I reviewed the patient's medical records. - Lab Data Lab results reviewed: Yes I reviewed the patient's lab results. Result diagrams: 01/15/19 20:48 01/15/19 20:48 Lab Results 01/15/19 01/15/19 Range/Units 20:48 20:48 WBC 6.5 (4.3-11.1) K/mcL RBC 3.88 L (4.19-5.50) M/mcL Hgb 12.4 L (12.9-16.9) g/dL Hct 37.5 (37.5-50.1) % MCV 96.6 (83.0-100.0) fL MCH 32.0 (28.0-33.3) pg MCHC 33.1 (31.6-35.5) g/dL RDW 12.4 (11.5-14.5) % Plt Count 154 (140-400) K/mcL MPV 9.2 L (9.4-12.4) fL Immature Gran % 0.3 (0-4) % Seg Neutrophils % 55.3 % Lymphocytes % 30.6 % Monocytes % 10.7 % Eosinophils % 2.6 % Basophils % 0.5 % Neutrophils # 3.6 (1.6-8.9) K/mcL Lymphocytes # 2.0 (0.6-4.6) K/mcL Monocytes # 0.7 (0.0-1.3) K/mcL Eosinophils # 0.2 (0.0-0.6) K/mcL Basophils # 0.0 (0.0-0.2) K/mcL Sodium 136 (136-145) mEq/L Potassium 3.8 (3.5-5.1) mEq/L Chloride 102 (98-107) mEq/L Carbon Dioxide 21 L (23-29) mEq/L BUN 12 (6-20) mg/dL Creatinine 0.76 (0.70-1.30) mg/dL Est GFR ( Amer) > 60 (> 60) Est GFR (Non-Af Amer) > 60 (> 60) BUN/Creatinine Ratio 16 (6-26) Glucose 114 H (70-105) mg/dL Calculated Osmolality 283 (280-300) Calcium 9.1 (8.6-10.3) mg/dL
--- NOTE | 2019-01-15 22:44 | Internal Med History&Physical ---
Date of Encounter: 01/15/19 Time of Encounter: 22:43 Internal Medicine - H&P: HPI Chief complaint: leg ulcer Admitted From: Home Plans for Post Hospital Care: Home History of present illness: Ryan Parish is a 48 year old man with multiple comorbidities including tobacco use, mood disorder, hypertension, hyperlipidemia, peripheral vascular disease and diabetes complicated by peripheral neuropathy and multiple lower extremity ulcers requiring surgical intervention, last admitted here 1 month ago for an infected post-surgical wound on his left lower leg and was discharged with a PICC to continue receiving ertapenem. He continues to undergo wound care as an outpatient, with dressing and wound VAC changes done today but reportedly was referred to the ED for admission upon recommendation of Dr. Bower. He offers no complaints at this time. He says he has a home infusion company bring his medications and he infuses it himself. He has had no difficulty with the PICC. He does not have fever or chills. Vitals: Reviewed General: Obese man who appears unkempt and disheveled lying in bed in NAD Skin: Warm and dry. HEENT: Moist mucous membranes. No conjunctivae pallor. Neck: No lymphadenopathy. No JVD. No carotid bruits. No palpable thyroid. Chest: Normal thoracic expansion. Normal breath sounds. Clear to auscultation. Heart: Normal S1 & S2; rhythmic. No rubs or murmurs. Abdomen: Non-distended, soft and non-tender to palpation. No peritoneal reaction. Extremities: Right heel with a necrotic ulcer covered with dressing. Lateral aspect of the left leg with a large, deep soft tissue defect with a wound vac in place draining dark fluid. Neurological: Awake, alert and oriented to person, place and time. No focal deficits. Psych: Affect appropriate. Assessment/Plan 1. Diabetic ulcers of the lower extremities: He has a chronic non-healing ulcer of the right heel and a postoperative left leg infection seen to have P.mirabilis on cultures for which he is currently on ertapenem. It appears that the wound healing process has not been adequate and there may be need for further excisional debridement and local wound care however I am unable to ascertain what the exact plans are. Will have Dr. Bower paged to clarify the plan of care but in the interim will send basic blood work, continue ertapenem and resume home medications. Podiatry consult requested. 2. Diabetes: Improved glycemic control has been noted over the past year. Will keep him on insulin sliding scale for now. 3. Hypertension: On ACEI and well controlled. 4. DVT prophylaxis: SubQ heparin ordered. 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 - Social History Smoking Status: Current every day smoker Smokeless Tobacco Status: No Alcohol use: heavy, recent Drug use: none - Family History Mother Adopted: No Living Status: Still Living Hx Family Cardiac Disorders: Yes Hx Family Respiratory Disorders: Yes Hx Family Cancer: No Hx Family GI Disorders: No Hx Family Endocrine Disorder: No Hx Family Neuromuscular Disorders: No Hx Family Neurologic Disorders: No Hx Family HEENT Disorders: No Hx Family Autoimmune Disorders: No Father Adopted: No Family Member Ethnicity: Non- Living Status: Hx Family Cardiac Disorders: Yes Hx Family Respiratory Disorders: Yes Hx Family Cancer: Yes Hx Family GI Disorders: No Hx Family Endocrine Disorder: Yes Hx Family Neuromuscular Disorders: No Hx Family Neurologic Disorders: No Hx Family HEENT Disorders: No Hx Family Autoimmune Disorders: No Internal Medicine - H&P: Meds Albuterol Sulfate [Proventil Inhaler] 2 puff IH Q4HR PRN 04/06/16 [History] [place]-3/Dha/Epa/Fish Oil [Fish Oil 1,000 mg Softgel] 2,000 mg PO BID 04/06/16 [History] Omeprazole [PriLOSEC] 40 mg PO DAILY 04/06/16 [History] Loratadine [Claritin] 10 mg PO DAILY 12/21/16 [History] Pregabalin [Lyrica] 150 mg PO TID 12/21/16 [History] diazePAM [Valium] 10 mg PO 2-3XD PRN 09/05/17 [History] Atorvastatin [Lipitor] 40 mg PO HS 03/13/18 [History] Collagenase Oint [Santyl] 1 appl TP DAILY 03/13/18 [History] Fluticasone Propionate Nasal [Flonase] 1 spr NS BID 03/13/18 [History] risperiDONE [Risperdal] 2 mg PO QAM 03/13/18 [History] Meloxicam [Mobic] 15 mg PO DAILY 10/08/18 [History] Metoprolol Succinate [Toprol Xl] 100 mg PO BID 10/08/18 [History] Multivitamin [One Daily] 1 tab PO QAM 10/08/18 [History] Quinapril HCl [Accupril] 40 mg PO DAILY 10/08/18 [History] Sennosides/Docusate Sodium [Senna Plus] 1 tab PO DAILY PRN 10/08/18 [History] risperiDONE [Risperdal] 3 mg PO HS 10/08/18 [History] Ondansetron ODT [Zofran ODT] 4 mg SL Q8HR PRN #12 tab.rapdis 12/05/18 [Rx] Oxycodone HCl/Acetaminophen [Percocet 5-325 mg Tablet] 1 each PO Q4-6H PRN 2 Days #8 tablet 12/05/18 [Rx] Allergy/AdvReac Type Severity Reaction Status Date / Time hydrocodone [From Vicodin] AdvReac Severe Nausea, Verified 01/15/19 20:01 Vomiting, Hives cephalexin [From Keflex] AdvReac Vomiting Verified 01/15/19 20:01 codeine AdvReac Confusion, Verified 01/15/19 20:01 GI Upset morphine AdvReac Rash, Verified 01/15/19 20:01 Hives, Vomiting All Systems PM: A 10-system review of systems was performed and is negative for pertinent findings except as documented above in the HPI. - Constitutional Vitals: Temp Pulse Resp BP Pulse Ox 97.9 F 82 20 128/66 98 01/15/19 19:55 01/15/19 20:51 01/15/19 22:29 01/15/19 22:29 01/15/19 20:51 Exam: . Internal Med - H&P Results - Labs CBC & Chem 7: 01/15/19 20:48 01/15/19 20:48 Labs: Short CBC 01/15/19 Range/Units 20:48 WBC 6.5 (4.3-11.1) K/mcL Hgb 12.4 L (12.9-16.9) g/dL Hct 37.5 (37.5-50.1) % Plt Count 154 (140-400) K/mcL Neutrophils # 3.6 (1.6-8.9) K/mcL BMP 01/15/19 20:48 Sodium 136 Potassium 3.8 Chloride 102 Carbon Dioxide 21 L BUN 12 Creatinine 0.76 Glucose 114 H Calcium 9.1 - Time Spent With Patient Total time spent is greater than 50% in coordination of care (as documented) at patient's floor/unit and/or counseling patient:
[2019-01-16] MEDS: RisperiDAL 3 MG TABLET PO SCH ×2 (01:25→22:34)
[2019-01-16 05:38] LABS: INR 1.2; Prothrombin Time 13.2 Seconds (9.4-12.1)
[2019-01-16 05:41] LABS: Activated Partial Thrombo Time 59.6 Seconds (26.0-36.0)
[2019-01-16] MEDS: *HR* Heparin 5,000 UNIT/ML VIAL SQ SCH ×2 (06:00→17:44)
[2019-01-16] MEDS: *HR* OxyCODONE/APAP 5/325 TABLET PO PRN ×3 (06:22→18:23)
[2019-01-16] MEDS: Insulin LISPRO 300 UNITS/3 ML VIAL SQ SCH ×3 (07:50→17:02)
[2019-01-16] MEDS: Fluticasone Propionate Nasal 50 MCG/SPRAY BOTTLE NS SCH ×2 (07:57→22:34)
[2019-01-16] MEDS: Pregabalin 75 MG CAPSULE PO SCH ×3 (07:57→22:34)
[2019-01-16] MEDS: Metoprolol XL (24 HR) Succ 50 MG TAB.ER.24H PO SCH ×2 (07:59→22:34)
[2019-01-16] MEDS ORDERED: Multivit/Ca/Min/Fe/FA 1 TAB TABLET PO SCH (09:00)
[2019-01-16] MEDS ORDERED: NON-FORMULARY MEDICATION 1 EACH EACH (Omega-3/Dha/Epa/Fish Oil [Fish Oil 1,000 Mg Softgel] PO SCH (09:00)
[2019-01-16] MEDS ORDERED: Lisinopril 20 MG TABLET PO SCH (09:00)
[2019-01-16] MEDS ORDERED: risperiDONE 1 MG TABLET PO SCH (09:00)
[2019-01-16] MEDS ORDERED: Ertapenem 1,000 MG in 0.9 % Sodium Chloride Mini Bag 100 ML IVPB SCH (09:00)
[2019-01-16] MEDS ORDERED: Loratadine 10 MG TABLET PO SCH (09:00)
--- NOTE | 2019-01-16 09:28 | Podiatry Consult Note ---
Date of Encounter: 01/16/19 Time of Encounter: 09:27 Assessment and Plan (1) Leg ulcer, left Current visit: Yes Status: Chronic Assessment: Left lower extremity ulceration with bone exposure, 90 % granulation tissue with slough noted to proximal edge WBC 6.5, afebrile Previous wound cultures returned proteus mirabilis and anaerobic culture returend gram negative venu on 12/12/18 Previous ABIs bilaterally within normal limits 12/10/18 Previous TCP02 right ankle 52, right foot 42, left ankle 53, left foot 48 on 12/10/18 Plan: XR of left tib/fib ordered ESR, CRP ordered NPO Plan for surgery later today, informed consent signed Local wound care, dressing changed Discussed plan for debridement, Nature of the procedure, risks versus benefits, potential complications, consequences of surgery, and condition discussed. All questions and concerns addressed. Consent signed and placed in chart. Cleansed left lateral wound with 0.9 [address] santyl to slough, placed adaptic to exposed bone, covered with wet 4x4 gauze, dry 4x4 gauze, and kerlix Secured with medipore tape Qualifiers: Non-pressure ulcer stage: with fat layer exposed Qualified Code(s): L97.922 - Non-pressure chronic ulcer of unspecified part of left lower leg with fat layer exposed (2) Diabetic ulcer of right heel Current visit: No Status: Chronic Assessment: Antonio stage II ulceration to right calcenous with necorsis noted WBC 6.5, afebrile Previous wound cultures returned proteus mirabilis and anaerobic culture reture nd gram negative venu on 12/12/18 Previous ABIs bilaterally within normal limits 12/10/18 Previous TCP02 right ankle 52, right foot 42, left ankle 53, left foot 48 on 12/10/18 Plan: Plan for surgery today for debridement NPO Local wound care placed XR ordered Keep heel elevated at all times to prevent further ulceration, heel medix boots ordered Cleansed with 0.9 NS Placed santyl to wound bed, nickel thick, covered with wet 4x4 gauze, dry 4x4 gauze, kerlix, and secured with medipore tape Qualifiers: Diabetes mellitus type: type 2 Non-pressure ulcer stage: with necrosis of muscle Qualified Code(s): E11.621 - Type 2 diabetes mellitus with foot ulcer; L97.413 - Non-pressure 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 Parish is a 48-year-old male who was admitted from wound care through the ER for necrosis of right heel ulcer. PMH of GERD, HTN, arthritis, anxiety, depression, and chronic diabetic ulcers. Patient reports smoking half a pack a day, reports drinking 8-9 beers a day. Ethyl alcohol 42 upon admission. Denies any illicit drug use. Briefly, patient has chronic diabetic ulcers following in the wound care center for since February of last year. Patient had left lower extremity surgery on 12/05/18 with debridement of left peroneal tendon and application of amniotic scrapped and wound VAC with Dr. Bower. Patient was seen again and had excisional debridement of left leg wound down to tendon/deep fascia, excisional debridement right foot wound into subcutaneous tissue on 12/12/[address] Bower. Patient was seen in the wound care center yesterday at which time wound vac was removed and he was instructed to go to ER for necrotic right calcaneous. That time patient was instructed to the ER for further evaluation. Mr. Parish is a 48-year-old male who is consulted to the podiatry group for management of chronic diabetic ulcers. ABIs performed on 12/10/18 returned right ankle 52, right foot 42, left ankle 53, left foot 48. ABIs on 12/10/18 were bilaterally within normal limits. Wound cultures performed on 12/12/18 returned proteus mirabilis and anaerobic cultures returned gram-negative venu. WBC 6.5, afebrile. Discussed plan for surgical intervention. Patient agreeable. Consent obtained and placed in chart. Denies any fevers, chills, nausea, vomiting, or diarrhea. Denies any chest pain, calf pain, or shortness of breath. No other questions or concerns at this time. 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 - Social History Smoking Status: Current every day smoker Smokeless Tobacco Status: No Alcohol use: heavy, recent Drug use: none - Family History Mother Adopted: No Living Status: Still Living Hx Family Cardiac Disorders: Yes Hx Family Respiratory Disorders: Yes Hx Family Cancer: No Hx Family GI Disorders: No Hx Family Endocrine Disorder: No Hx Family Neuromuscular Disorders: No Hx Family Neurologic Disorders: No Hx Family HEENT Disorders: No Hx Family Autoimmune Disorders: No Father Adopted: No Family Member Ethnicity: Non- Living Status: Hx Family Cardiac Disorders: Yes Hx Family Respiratory Disorders: Yes Hx Family Cancer: Yes Hx Family GI Disorders: No Hx Family Endocrine Disorder: Yes Hx Family Neuromuscular Disorders: No Hx Family Neurologic Disorders: No Hx Family HEENT Disorders: No Hx Family Autoimmune Disorders: No Medications and Allergies Albuterol Sulfate [Proventil Inhaler] 2 puff IH Q4HR PRN 04/06/16 [History] [place]-3/Dha/Epa/Fish Oil [Fish Oil 1,000 mg Softgel] 2,000 mg PO BID 04/06/16 [History] Omeprazole [PriLOSEC] 40 mg PO DAILY 04/06/16 [History] Loratadine [Claritin] 10 mg PO DAILY 12/21/16 [History] Pregabalin [Lyrica] 150 mg PO TID 12/21/16 [History] diazePAM [Valium] 10 mg PO 2-3XD PRN 09/05/17 [History] Atorvastatin [Lipitor] 40 mg PO HS 03/13/18 [History] Collagenase Oint [Santyl] 1 appl TP DAILY 03/13/18 [History] Fluticasone Propionate Nasal [Flonase] 1 spr NS BID 03/13/18 [History] risperiDONE [Risperdal] 2 mg PO QAM 03/13/18 [History] Meloxicam [Mobic] 15 mg PO DAILY 10/08/18 [History] Metoprolol Succinate [Toprol Xl] 100 mg PO BID 10/08/18 [History] Multivitamin [One Daily] 1 tab PO QAM 10/08/18 [History] Quinapril HCl [Accupril] 40 mg PO DAILY 10/08/18 [History] Sennosides/Docusate Sodium [Senna Plus] 1 tab PO DAILY PRN 10/08/18 [History] risperiDONE [Risperdal] 3 mg PO HS 10/08/18 [History] Ondansetron ODT [Zofran ODT] 4 mg SL Q8HR PRN #12 tab.rapdis 12/05/18 [Rx] Oxycodone HCl/Acetaminophen [Percocet 5-325 mg Tablet] 1 each PO Q4-6H PRN 2 Days #8 tablet 12/05/18 [Rx] Allergy/AdvReac Type Severity Reaction Status Date / Time hydrocodone [From Vicodin] AdvReac Severe Nausea, Verified 01/15/19 20:01 Vomiting, Hives cephalexin [From Keflex] AdvReac Vomiting Verified 01/15/19 20:01 codeine AdvReac Confusion, Verified 01/15/19 20:01 GI Upset morphine AdvReac Rash, Verified 01/15/19 20:01 Hives, Vomiting All Systems Reviewed: The remainder of the systems were reviewed and are negative - Constitutional Constitutional: no fever(s) - Cardiovascular Cardiovascular: leg ulcers, no chest pain - Respiratory Respiratory: no dyspnea - Musculoskeletal Musculoskeletal: muscle weakness, numbness, tingling Physical Exam - Constitutional Vitals: Temp Pulse Resp BP Pulse Ox 98.0 F 76 16 108/68 95 01/16/19 07:18 01/16/19 07:18 01/16/19 07:18 01/16/19 07:18 01/16/19 07:30 Exam: Constitiutional: Alert and oriented x 3. Well nourished. No acute distress noted Vascular: 1/4 DP/PT bilaterally, CFT <3 sec to all digits, warm to warm from tibia to toes bilaterally, bilaterally Neurologic: Absent sensation to touch, normal plantar response Dermatologic: Antonio stage II ulceration to right calcaneous, necrosis noted, left lateral lower extremity ulceration with bone exposure, slough noted to proximal portion of wound, 90% granulation tissue noted Musculoskeletal: 3/5 muscle strength and normal tone bilaterally. Results - Labs Result Diagrams: 01/15/19 20:48 01/15/19 20:48 Labs: Abnormal lab results RBC 3.88 M/mcL (4.19-5.50) L 01/15/19 20:48 Hgb 12.4 g/dL (12.9-16.9) L 01/15/19 20:48 MPV 9.2 fL (9.4-12.4) L 01/15/19 20:48 PT 13.2 Seconds (9.4-12.1) H 01/16/19 04:57 APTT 59.6 Seconds (26.0-36.0) H 01/16/19 04:57 Carbon Dioxide 21 mEq/L (23-29) L 01/15/19 20:48 Glucose 114 mg/dL (70-105) H 01/15/19 20:48 Ethyl Alcohol 46 mg/dL (Less than 10) H 01/15/19 23:15 H & H 01/15/19 Range/Units 20:48 Hgb 12.4 L (12.9-16.9) g/dL Hct 37.5 (37.5-50.1) % All other labs normal. Consult Discharge Plan - Plan Referrals: Froylan Guido MD [Primary Care Provider] -
--- NOTE | 2019-01-16 13:14 | Internal Med Progress Note ---
Hospitalist Progress Note - Encounter Date of Encounter: 01/16/19 Time of Encounter: 10:00 - Subjective Interval History: Seen at bedside, denies any pain at this point. Denies fever, chills, rigors. Currently nothing by mouth. He is being taken for debridement today. On cardiac rehab nurse for unclear reasons. Denies chest pain or shortness of breath. No other overnight events. - Exam Vitals: Temp Pulse Resp BP Pulse Ox 98.5 F 75 16 119/74 92 01/16/19 11:33 01/16/19 11:33 01/16/19 11:33 01/16/19 11:33 01/16/19 11:33 Exam: General: Alert and oriented, no physical distress, able to follow commands. HEENT: No thyromegaly, no lymphadenopathy, no discharge. Eyes: No discharge. Normal conjuctiva, no icterus Respiratory: Normal vesicular breathing, no added sounds, breathing equal in both sides. CVS: Normal heart sounds, no murmurs, regular rhthm, no edema Extremities: No peripheral edema, peripheral pulses intact. Right heel with a necrotic ulcer covered with a dressing. Lateral aspect of the left leg with a large, deep soft tissue defect with a wound VAC in place draining dark fluid. Lymph nodes: No lymphadenopathy Gastrointestinal: Soft, nontender abdomen, normal abdominal sounds. No distention noted. Genitourinary: No paravertebral tenderness. Skin: No rash, ulcers or wound. Neurological: Alert and oriented. No focal deficits. Cranial nerves II-XII intact. - Assessment and Plan (1) Chronic ulcer of left foot with necrosis of muscle Current Visit: No Status: Acute Assessment and Plan: Left lower extremity ulceration and bone exposure. WBC count normal. Patient is afebrile. Previous wound cultures returned proteus mirabilis and anaerobic culture returend gram negative venu on 12/12/18 Previous ABIs bilaterally within normal limits 12/10/18 Podiatry on board. Nothing by mouth today for surgical intervention. ESR and CRP have been ordered. Continue on Entrapenem. 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 No leukocytosis. Patient is afebrile. Plan for surgery and debridement today. Currently nothing by mouth. Wound care consult placed. (3) DVT prophylaxis Current Visit: No Status: Acute Assessment and Plan: SUbQ heparin (4) Type 2 diabetes mellitus with foot ulcer Current Visit: No Status: Acute Assessment and Plan: Patient is currently on low-dose insulin sliding scale for diabetes mellitus. Continue. (5) HTN (hypertension) Current Visit: No Status: Chronic Assessment and Plan: Continue home medication. Blood pressure currently stable. (6) Sleep apnea Current Visit: No Status: Chronic Assessment and Plan: CPAP ordered. - Time Spent with Patient Total time spent is greater than 50% in coordination of care (as documented) at patient's floor/unit and/or counseling patient: Internal Medicine: Result - Labs CBC & Chem 7: 01/15/19 20:48 01/15/19 20:48 Labs: Short CBC 01/15/19 Range/Units 20:48 WBC 6.5 (4.3-11.1) K/mcL Hgb 12.4 L (12.9-16.9) g/dL Hct 37.5 (37.5-50.1) % Plt Count 154 (140-400) K/mcL Neutrophils # 3.6 (1.6-8.9) K/mcL BMP 01/15/19 20:48 Sodium 136 Potassium 3.8 Chloride 102 Carbon Dioxide 21 L BUN 12 Creatinine 0.76 Glucose 114 H Calcium 9.1 - ABG Interpretation ABG results: PT/INR, D-dimer PT 13.2 Seconds (9.4-12.1) H 01/16/19 04:57 Consult Discharge Plan - Plan Referrals: Froylan Guido MD [Primary Care Provider] - (4) Type 2 diabetes mellitus with foot ulcer 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
[2019-01-16] MEDS ORDERED: Insulin LISPRO 300 UNITS/3 ML VIAL SQ SCH (21:00)
--- NOTE | 2019-01-17 01:36 | Anesthesia Evaluation PreOp ---
Date of Encounter: 01/17/19 Time of Encounter: 01:35 - Past History Planned Operation: I and D Bilat Feet Cardiac History: HTN, Hyperlipidemia Pulmonary History: CHLOE Dx TECHNICAL TRAINER History: Denies Any Significant HX Other Medical History: Diabetes Type II, Other (Obese) Anesthesia History: No Prior Anesthetic Complications Alcohol Use: heavy, recent Drug use: none Medications and Allergies Albuterol Sulfate [Proventil Inhaler] 2 puff IH Q4HR PRN 04/06/16 [History] [place]-3/Dha/Epa/Fish Oil [Fish Oil 1,000 mg Softgel] 2,000 mg PO BID 04/06/16 [History] Omeprazole [PriLOSEC] 40 mg PO DAILY 04/06/16 [History] Loratadine [Claritin] 10 mg PO DAILY 12/21/16 [History] Pregabalin [Lyrica] 150 mg PO TID 12/21/16 [History] diazePAM [Valium] 10 mg PO 2-3XD PRN 09/05/17 [History] Atorvastatin [Lipitor] 40 mg PO HS 03/13/18 [History] Collagenase Oint [Santyl] 1 appl TP DAILY 03/13/18 [History] Fluticasone Propionate Nasal [Flonase] 1 spr NS BID 03/13/18 [History] risperiDONE [Risperdal] 2 mg PO QAM 03/13/18 [History] Meloxicam [Mobic] 15 mg PO DAILY 10/08/18 [History] Metoprolol Succinate [Toprol Xl] 100 mg PO BID 10/08/18 [History] Multivitamin [One Daily] 1 tab PO QAM 10/08/18 [History] Quinapril HCl [Accupril] 40 mg PO DAILY 10/08/18 [History] Sennosides/Docusate Sodium [Senna Plus] 1 tab PO DAILY PRN 10/08/18 [History] risperiDONE [Risperdal] 3 mg PO HS 10/08/18 [History] Ondansetron ODT [Zofran ODT] 4 mg SL Q8HR PRN #12 tab.rapdis 12/05/18 [Rx] Oxycodone HCl/Acetaminophen [Percocet 5-325 mg Tablet] 1 each PO Q4-6H PRN 2 Days #8 tablet 12/05/18 [Rx] Allergy/AdvReac Type Severity Reaction Status Date / Time hydrocodone [From Vicodin] AdvReac Severe Nausea, Verified 01/15/19 20:01 Vomiting, Hives cephalexin [From Keflex] AdvReac Vomiting Verified 01/15/19 20:01 codeine AdvReac Confusion, Verified 01/15/19 20:01 GI Upset morphine AdvReac Rash, Verified 01/15/19 20:01 Hives, Vomiting - Meds/Allergy Pre-op Review Medications Reviewed: Yes Allergies Reviewed: Yes Beta Blockers on Current Med List: Yes Anesthesia Results - Labs 01/15/19 20:48 01/15/19 20:48 Anesthesia Exam O2 Sat O2 Sat by Pulse Oximetry 93 O2 Sat by Pulse Oximetry 93 O2 Sat by Pulse Oximetry 93 O2 Sat by Pulse Oximetry 93 O2 Sat by Pulse Oximetry 92 O2 Sat by Pulse Oximetry 92 O2 Sat by Pulse Oximetry 95 O2 Sat by Pulse Oximetry 95 O2 Sat by Pulse Oximetry 93 Vital Signs Temp Pulse Resp BP Pulse Ox 97.9 F 75 20 151/78 96 01/15/19 19:55 01/15/19 19:55 01/15/19 19:55 01/15/19 19:55 01/15/19 19:55 Height: 5'10 Weight: 280 lbs NPO (# of Hours): MN Pain Scale: 0 - HEENT Pupil (Motor): Pupils equal, EOMI Mallampati: II Teeth: Normal Oral Opening: Greater than 3 - TECHNICAL TRAINER LOC: Oriented TECHNICAL TRAINER Motor: Normal RUE, Normal LUE, Normal RLE, Normal LLE, Normal Face TECHNICAL TRAINER Sensory: Normal: RUE, LUE, Face, Deficit: RLE, LLE (neuropathic) - Cardiac Rhythm: Regular Murmur: None JVD: No Carotid Bruit: No - Pulmonary Breath Sounds: bilateral Clear Respiratory Effort: Symmetrical Anesthesia Assess/Plan ASA Score: 3 (HTN CHLOE Obesity DM) Level of consciousness: Cooperative, Oriented Anesthetic Plan: MAC Autologous Blood: No Monitoring Plan: Standard Monitors Recovery Plan: PACU (Discussed MAC, possible GA, agrees to proceed)
--- NOTE | 2019-01-17 01:39 | Operative Note ---
Date of procedure: 01/17/19 Pre-op diagnosis: chronic left leg wound , left heel wound Post-op diagnosis: same Procedure: preparation of wounds for graft application of graft bilateral lower extremities Implants: [place] wound matrix Complications: none Anesthesia: MAC Local Anesthetics: 1% Lidocaine HCL SubQ (cc) Surgeon: Tomas Bower Was there an cook's assistant present: No Estimated blood loss (cc): 20 Specimen: none Condition: stable Disposition: PACU Procedure in Detail: Indications: 48-year-old diabetic alcoholic male with chronic wounds and is not every day smoker who refuses to quit is being brought to the operating room for the above procedures in an effort to try to salvage his legs. Patient currently has been treated with antibiotics followed by infectious disease. Nature the above procedures, risks versus benefits potential complications consequences of surgery and his condition discussed at length including but not limited to persistent infection loss of limb was heart attack blood clot pulmonary embolism and etc. No guarantees were made as to the outcome of any procedure and it was explained to him that he would still have wounds to heal and if he does not stop smoking and not optimistic that he is going to keep his legs. All of his questions have been answered and informed consent was signed. Patient was taken to the operating room placed on the table in the supine position. 1% lidocaine plain was injected into bilateral lower extremity. The patient's blood was obtained by the perfusion team and spun and PRP and sprayed onto the wounds. The following procedures then began. Preparation of wounds for application of graft, application of graft. Attention was directed to the lateral aspect of the patient's left leg where a wound was present measuring approximately 10 cm x 3.5 cm x 2 cm. The Misonex debridement wand was utilized to remove nonviable tissue down to healthy bleeding tissue down into deep fascia and tendon. The site was irrigated and the [place] wound matrix was applied to the wound after it had been sprayed with PRP and the wound matrix soaked in PRP. Attention was then directed to the right lateral heel (measuring [id number]) where the misonex was utilized to debride nonviable tissue until there was healthy bleeding tissue and some of this wound was debrided down to the level of the bone. The [place] wound matrix was soaked in PRP and wound was sprayed with PRP and applied to the wound bed. The grafts were anchored with Steri-Strips. Postoperative bandaging included Adaptic, 4 x 4 gauze and ABDs, Kerlix and an Ranjit wrap. Patient tolerated the anesthesia procedure well escorted to the recovery room with vital signs stable and vascular status intact to the left and right lower extremity noted by brisk capillary refill time to all digits. Patient will return to the floor where he will continue antibiotics.
[2019-01-17] MEDS ORDERED: Lidocaine 1% 20 ML MDV ONE (01:56)
[2019-01-17] MEDS ORDERED: Calcium Gluconate 1,000 MG/10 ML VIAL ONE (02:04)
[2019-01-17] MEDS ORDERED: *HR* Propofol 200 MG/20 ML VIAL IVP ONE (02:07)
[2019-01-17] MEDS ORDERED: *HR* FentaNYL (PF) 100 MCG/2 ML VIAL ONE (02:18)
[2019-01-17] MEDS ORDERED: *HR* Dextrose 50 % in Water (Syg) 50 ML SYRINGE IVP PRN (02:59)
[2019-01-17] MEDS ORDERED: Ondansetron ODT 4 MG TAB.RAPDIS SL PRN (02:59)
[2019-01-17] MEDS ORDERED: Dextrose Gel 15 GM/37.5 ML TUBE PO PRN ×2 (02:59)
[2019-01-17] MEDS ORDERED: *HR* OxyCODONE/APAP 5/325 TABLET PO PRN (02:59)
--- NOTE | 2019-01-17 03:09 | Anesthesia Evaluation Post Op ---
Date of Encounter: 01/17/19 Time of Encounter: 03:10 - Vital Signs Vital Signs: Vital Signs/O2 Sat/Glucose, Most Current Temp Pulse Resp BP Pulse Ox 01/16/19 23:15 98.1 F 66 16 124/78 93 - Lungs Lungs: Clear Ascult./Percussion - Airway Airway: Non-obstructed - Cardiovascular Regular Rate - Mental Status Mental Status: Alert & Oriented, Answers Appropriately - Pain Pain Scale: 0 - Nausea Vomiting Nausea Vomiting: Not Present - Hydration Hydration: NPO - Discharge PostOp Status: Transfer Patient to floor
[2019-01-17] MEDS ORDERED: Sennosides/Docusate Sodium TABLET PO PRN (03:15)
[2019-01-17] MEDS ORDERED: *HR* Heparin 5,000 UNIT/ML VIAL SQ SCH (06:00)
[2019-01-17] MEDS ORDERED: Insulin LISPRO 300 UNITS/3 ML VIAL SQ SCH ×2 (07:30→21:00)
[2019-01-17 08:29] LABS: Basophils # 0.1 K/mcL (0.0-0.2); Basophils % 0.8 %; Eosinophils # 0.2 K/mcL (0.0-0.6); Eosinophils % 3.3 %; Hematocrit 36.3 % (37.5-50.1); Hemoglobin 11.5 g/dL (12.9-16.9); Immature Granulocytes % 0.2 % (0-4); Lymphocytes # 1.8 K/mcL (0.6-4.6); Lymphocytes % 29.4 %; Mean Corpuscular HGB Conc 31.7 g/dL (31.6-35.5); Mean Corpuscular Hemoglobin 31.7 pg (28.0-33.3); Mean Platelet Volume 10.2 fL (9.4-12.4); Monocytes # 0.8 K/mcL (0.0-1.3); Monocytes % 12.2 %; Platelet Count 137 K/mcL (140-400); Red Blood Count 3.63 M/mcL (4.19-5.50); Red Cell Distribution Width 12.3 % (11.5-14.5); Segmented Neutrophils % 54.1 %; White Blood Count 6.2 K/mcL (4.3-11.1)
[2019-01-17 08:30] LABS: Neutrophils # 3.4 K/mcL (1.6-8.9)
[2019-01-17 08:34] LABS: BUN/Creatinine Ratio 16 (6-26); Blood Urea Nitrogen 9 mg/dL (6-20); Calcium 9.2 mg/dL (8.6-10.3); Carbon Dioxide 24 mEq/L (23-29); Chloride 104 mEq/L (98-107); Glucose 101 mg/dL (70-105); Osmolality,Calculated 287 (280-300); Potassium 4.2 mEq/L (3.5-5.1); Sodium 139 mEq/L (136-145); eGFR For African Americans > 60 (> 60); eGFR For Non-African Americans > 60 (> 60)
[2019-01-17] MEDS ORDERED: *HR* OxyCODONE/APAP 5/325 TABLET PO ONE (08:45)
[2019-01-17] MEDS ORDERED: Pregabalin 75 MG CAPSULE PO SCH (09:00)
[2019-01-17] MEDS ORDERED: risperiDONE 1 MG TABLET PO SCH (09:00)
[2019-01-17] MEDS ORDERED: Ertapenem 1,000 MG in 0.9 % Sodium Chloride Mini Bag 100 ML IVPB SCH (09:00)
[2019-01-17] MEDS ORDERED: diazePAM 10 MG TABLET PO PRN (09:00)
[2019-01-17] MEDS ORDERED: Metoprolol XL (24 HR) Succ 50 MG TAB.ER.24H PO SCH (09:00)
[2019-01-17] MEDS ORDERED: Lisinopril 20 MG TABLET PO SCH (09:00)
[2019-01-17] MEDS ORDERED: Loratadine 10 MG TABLET PO SCH (09:00)
[2019-01-17] MEDS ORDERED: Multivit/Ca/Min/Fe/FA 1 TAB TABLET PO SCH (09:00)
[2019-01-17] MEDS ORDERED: Fluticasone Propionate Nasal 50 MCG/SPRAY BOTTLE NS SCH (09:00)
[2019-01-17 10:41] VITALS: BP 151/80
--- NOTE | 2019-01-17 12:11 | Discharge Summary ---
- NOTES TO OUTPATIENT PROVIDER Notes to Outpatient Provider: Presented for the debridement of the wound. Being discharged back on the IV antibiotics. Orders not resulted at time of discharge: Pending orders 01/15/19 20:48 Culture,Blood [BC] Stat Date of Encounter: 01/17/19 Time of Encounter: 09:45 - Discharge Diagnosis (1) Chronic ulcer of left foot with necrosis of muscle Priority: Primary Status: Acute (2) Chronic ulcer of right foot with necrosis of muscle Priority: Secondary Status: Acute (3) DVT prophylaxis Priority: Secondary Status: Acute (4) Type 2 diabetes mellitus with foot ulcer Priority: Secondary Status: Acute Qualifiers: Diabetes mellitus terminal supervisor insulin use: without terminal supervisor use Qualified C ode(s): E11.621 - Type 2 diabetes mellitus with foot ulcer; L97.509 - Non- pressure chronic ulcer of other part of unspecified foot with unspecified severity (5) HTN (hypertension) Priority: Secondary Status: Chronic Qualifiers: Hypertension type: essential hypertension Qualified Code(s): I10 - Essential (primary) hypertension (6) Sleep apnea Priority: Secondary Status: Chronic Qualifiers: Sleep apnea type: unspecified type Qualified Code(s): G47.30 - Sleep apnea, unspecified Hospital course: Mr. Parish is a 48 year old male with a past medical history significant for tobacco abuse, mood disorder, hypertension, diabetes mellitus, was sent from the wound clinic for the debridement and application of graft of his chronic right and the left lower extremities ulcers. Patient left lower extremity infection was found to be growing Proteus mirabilis from the cultures on 12/12/2018, sensitive to enterapenem and he is supposed to be on enterapenem until 01/25. Patient was continued on IV antibiotics. Was taken for the surgery yesterday, had application of graft on bilateral lower extremities by the podiatry. Patient tolerated the procedure well. No postop complications. He is getting wound VAC and is being discharged back to home with home health. He supposed to be continued on the IV antibiotics at home until the completion of the course which is until 01/25. He is to follow-up with the podiatry as an outpatient. He is being discharged in stable condition. - Time Spent with Patient Total time spent providing and/or coordinating discharge services: 45 minutes - Discharge Medications Prescriptions: Continued Omeprazole [PriLOSEC] 40 mg PO DAILY Zanoni-3/Dha/Epa/Fish Oil [Fish Oil 1,000 mg Softgel] 2,000 mg PO BID Albuterol Sulfate [Proventil Inhaler] 2 puff IH Q4HR PRN PRN Reason: Shortness Of Breath Pregabalin [Lyrica] 150 mg PO TID Loratadine [Claritin] 10 mg PO DAILY diazePAM [Valium] 10 mg PO HS PRN PRN Reason: Anxiety Atorvastatin [Lipitor] 40 mg PO HS Collagenase Oint [Santyl] 1 appl TP DAILY Fluticasone Propionate Nasal [Flonase] 1 spr NS BID risperiDONE [Risperdal] 2 mg PO QAM Meloxicam [Mobic] 15 mg PO DAILY Metoprolol Succinate [Toprol Xl] 100 mg PO BID Multivitamin [One Daily] 1 tab PO QAM Quinapril HCl [Accupril] 40 mg PO DAILY risperiDONE [Risperdal] 3 mg PO HS Sennosides/Docusate Sodium [Senna Plus] 1 tab PO DAILY PRN PRN Reason: Constipation glipiZIDE [Glipizide] 10 mg PO BID HYDROcodone/Acet 5/325 mg [[place] 5-325 mg] 1 tab PO TID PRN PRN Reason: Pain Ibuprofen [Motrin] 600 mg PO BID PRN PRN Reason: Mild To Moderate Pain Metformin HCl 500 mg PO BID hydroCHLOROthiazide [Hydrochlorothiazide] 25 mg PO DAILY L.rhamn A-191/L.ac/B.joselin/B.tarah [[facility] Probiotic 20 Alonso Cell Caps] 1 cap PO BID Home Medications: Albuterol Sulfate [Proventil Inhaler] 2 puff IH Q4HR PRN 04/06/16 [History] Zanoni-3/Dha/Epa/Fish Oil [Fish Oil 1,000 mg Softgel] 2,000 mg PO BID 04/06/16 [History] Omeprazole [PriLOSEC] 40 mg PO DAILY 04/06/16 [History] Loratadine [Claritin] 10 mg PO DAILY 12/21/16 [History] Pregabalin [Lyrica] 150 mg PO TID 12/21/16 [History] diazePAM [Valium] 10 mg PO HS PRN 09/05/17 [History] Atorvastatin [Lipitor] 40 mg PO HS 03/13/18 [History] Collagenase Oint [Santyl] 1 appl TP DAILY 03/13/18 [History] Fluticasone Propionate Nasal [Flonase] 1 spr NS BID 03/13/18 [History] risperiDONE [Risperdal] 2 mg PO QAM 03/13/18 [History] Meloxicam [Mobic] 15 mg PO DAILY 10/08/18 [History] Metoprolol Succinate [Toprol Xl] 100 mg PO BID 10/08/18 [History] Multivitamin [One Daily] 1 tab PO QAM 10/08/18 [History] Quinapril HCl [Accupril] 40 mg PO DAILY 10/08/18 [History] Sennosides/Docusate Sodium [Senna Plus] 1 tab PO DAILY PRN 10/08/18 [History] risperiDONE [Risperdal] 3 mg PO HS 10/08/18 [History] HYDROcodone/Acet 5/325 mg [[place] 5-325 mg] 1 tab PO TID PRN 01/17/19 [History] Ibuprofen [Motrin] 600 mg PO BID PRN 01/17/19 [History] L.rhamn A-191/L.ac/B.joselin/B.tarah [[facility]vs Probiotic 20 Alonso Cell Caps] 1 cap PO BID 01/17/19 [History] Metformin HCl 500 mg PO BID 01/17/19 [History] glipiZIDE [Glipizide] 10 mg PO BID 01/17/19 [History] hydroCHLOROthiazide [Hydrochlorothiazide] 25 mg PO DAILY 01/17/19 [History] Allergies/Adverse Reactions: Allergy/AdvReac Type Severity Reaction Status Date / Time hydrocodone [From Vicodin] AdvReac Severe Nausea, Verified 01/15/19 20:01 Vomiting, Hives cephalexin [From Keflex] AdvReac Vomiting Verified 01/15/19 20:01 codeine AdvReac Confusion, Verified 01/15/19 20:01 GI Upset morphine AdvReac Rash, Verified 01/15/19 20:01 Hives, Vomiting Date of admission: 01/15/19 22:13 Primary care physician: Froylan Guido MD Consults: 01/15/19 20:38 Consult to Podiatry [CONS] Stat Consulting Provider: Pod[facility] Reason for Consult: LE wounds Call Completed: No - Constitutional Vitals: Temp Pulse Resp BP Pulse Ox 98.2 F 81 17 151/80 94 01/17/19 10:40 01/17/19 10:40 01/17/19 10:40 01/17/19 10:40 01/17/19 10:40 Exam: General: Alert and oriented, no physical distress, able to follow commands. Respiratory: Normal vesicular breathing, no added sounds, breathing equal in both sides. CVS: Normal heart sounds, no murmurs, regular rhthm, no edema Extremities: No peripheral edema, peripheral pulses intact. Right and the left foot in boot and dressed. Gastrointestinal: Soft, nontender abdomen, normal abdominal sounds. No distention noted. Genitourinary: No paravertebral tenderness. Skin: No rash, ulcers or wound. Neurological: Alert and oriented. No focal deficits. Cranial nerves II-XII intact. - Patient Status Disposition: Home Health Service Condition: Good - Discharge Instructions Follow Up With: Froylan Guido MD [Primary Care Provider] - Forms: ED Satisfaction Letter - Diet and Activity Activity: increase activity as tolerated Diet: diabetic diet
--- NOTE | 2019-01-17 12:19 | Physician Discharge Referral ---
Home Health/Hosp Referral Info Transfer to: Home Health Provider in Charge Post Discharge: PCP - Diagnosis (1) Chronic ulcer of left foot with necrosis of muscle Priority: Primary Status: Acute (2) Chronic ulcer of right foot with necrosis of muscle Priority: Secondary Status: Acute (3) DVT prophylaxis Priority: Secondary Status: Acute (4) Type 2 diabetes mellitus with foot ulcer Priority: Secondary Status: Acute (5) HTN (hypertension) Priority: Secondary Status: Chronic (6) Sleep apnea Priority: Secondary Status: Chronic - Respiratory Orders Smoking Cessation: Smoking cessation has been advised. For more information, call the [place] Tobacco Quit Line at 5-386-FISM-NOW. - Services Needed Following services are medically necessary services: Nursing, Physical Therapy, Home Infusion - Transfer Medications Home Medications: Albuterol Sulfate [Proventil Inhaler] 2 puff IH Q4HR PRN 04/06/16 [History] Fletcher-3/Dha/Epa/Fish Oil [Fish Oil 1,000 mg Softgel] 2,000 mg PO BID 04/06/16 [History] Omeprazole [PriLOSEC] 40 mg PO DAILY 04/06/16 [History] Loratadine [Claritin] 10 mg PO DAILY 12/21/16 [History] Pregabalin [Lyrica] 150 mg PO TID 12/21/16 [History] diazePAM [Valium] 10 mg PO HS PRN 09/05/17 [History] Atorvastatin [Lipitor] 40 mg PO HS 03/13/18 [History] Collagenase Oint [Santyl] 1 appl TP DAILY 03/13/18 [History] Fluticasone Propionate Nasal [Flonase] 1 spr NS BID 03/13/18 [History] risperiDONE [Risperdal] 2 mg PO QAM 03/13/18 [History] Meloxicam [Mobic] 15 mg PO DAILY 10/08/18 [History] Metoprolol Succinate [Toprol Xl] 100 mg PO BID 10/08/18 [History] Multivitamin [One Daily] 1 tab PO QAM 10/08/18 [History] Quinapril HCl [Accupril] 40 mg PO DAILY 10/08/18 [History] Sennosides/Docusate Sodium [Senna Plus] 1 tab PO DAILY PRN 10/08/18 [History] risperiDONE [Risperdal] 3 mg PO HS 10/08/18 [History] HYDROcodone/Acet 5/325 mg [[place] 5-325 mg] 1 tab PO TID PRN 01/17/19 [History] Ibuprofen [Motrin] 600 mg PO BID PRN 01/17/19 [History] L.rhamn A-191/L.ac/B.joselin/B.tarah [[facility]vs Probiotic 20 Alonso Cell Caps] 1 cap PO BID 01/17/19 [History] Metformin HCl 500 mg PO BID 01/17/19 [History] glipiZIDE [Glipizide] 10 mg PO BID 01/17/19 [History] hydroCHLOROthiazide [Hydrochlorothiazide] 25 mg PO DAILY 01/17/19 [History] Allergies/Adverse Reactions: Allergy/AdvReac Type Severity Reaction Status Date / Time hydrocodone [From Vicodin] AdvReac Severe Nausea, Verified 01/15/19 20:01 Vomiting, Hives cephalexin [From Keflex] AdvReac Vomiting Verified 01/15/19 20:01 codeine AdvReac Confusion, Verified 01/15/19 20:01 GI Upset morphine AdvReac Rash, Verified 01/15/19 20:01 Hives, Vomiting Certification: Further, I certify that my clinical findings support that this patient is homebound (i.e. absences from home require considerable and taxing effort and are for medical reasons or temple services or infrequently or short duration when for other reasons) because: Homebound Reason: Patient requires assistance of a person or device to safely leave home Attestation: My signature below is to certify that this patient is under my care and that I, or nurse practitioner, or a physician's respiratory therapy assistant working with me, has a [id number] encounter with this patient.
--- NOTE | 2019-01-17 16:06 | Podiatry Progress Note ---
Date of Encounter: 01/17/19 Time of Encounter: 13:20 - Assessment and Plan (1) Leg ulcer, left Status: Chronic Assessment: S/P preparation of wounds for graft and application of graft bilateral lower extremities with Dr. Bower on 01/16/19 WBC 6.2, afebrile ESR 73, CRP 26 Previous wound cultures returned proteus mirabilis and anaerobic culture returend gram negative venu on 12/12/18 Previous ABIs bilaterally within normal limits 12/10/18 Previous TCP02 right ankle 52, right foot 42, left ankle 53, left foot 48 on 12/10/18 Plan: Wound vac placed, suction at 125 mmHG OK to d/c Follow up in wound care center, keep regular scheduled appointment Cleansed with 0.9 NS. Prepped periwound with skin prep. Placed tegaderm drape in window pane fashion. Placed white foam to exposed bone and black granulafoam to wound bed. Covered with tegaderm drape. Placed to suction at -125 mmHG. Good seal noted. Secured with drain sponge, kerlix, and MARIS wrap. Qualifiers: Non-pressure ulcer stage: with fat layer exposed Qualified Code(s): L97.922 - Non-pressure chronic ulcer of unspecified part of left lower leg with fat layer exposed (2) Diabetic ulcer of right heel Status: Chronic Assessment: S/P preparation of wounds for graft and application of graft bilateral lower extremities with Dr. Bower on 01/16/19 WBC 6.2, afebrile Previous wound cultures returned proteus mirabilis and anaerobic culture returend gram negative venu on 12/12/18 Previous ABIs bilaterally within normal limits 12/10/18 Previous TCP02 right ankle 52, right foot 42, left ankle 53, left foot 48 on 12/10/18 Plan: Wound vac placed, MWF vac changes Keep heel elevated at all times to prevent further ulceration, heel medix boots ordered Follow up in wound care, keep regular scheduled appointment \Cleansed with 0.9 NS. Prepped skin with skin prep.. Placed tegaderm drape in window pane fashion. Placed adaptic, black granulafoam to wound bed. Covered with tegaderm drape. Placed to suction at -125 mmHG. Good seal noted. Secured with drain sponge, kerlix, and MARIS wrap. Qualifiers: Diabetes mellitus type: type 2 Non-pressure ulcer stage: with necrosis of muscle Qualified Code(s): E11.621 - Type 2 diabetes mellitus with foot ulcer; L97.413 - Non-pressure chronic ulcer of right heel and midfoot with necrosis of muscle Subjective Interval history: Patient alert and oriented x 3. States is leaving after vac placement. Denies any fevers, chill, nausea, vomiting, or diarrhea. Denies any calf pain, chest pain, or shortness of breath. No other questions or concerns at this time Objective - Vital Signs Vital Signs: Vital Signs Temp Pulse Resp BP Pulse Ox 01/17/19 10:40 98.2 F 81 17 151/80 94 01/17/19 09:07 96 01/17/19 06:59 98.2 F 63 17 122/69 96 01/17/19 04:31 12 98 01/17/19 04:20 98.2 F 70 16 130/78 99 01/17/19 03:16 97.8 F 70 16 137/81 94 01/16/19 23:15 98.1 F 66 16 124/78 93 01/16/19 22:18 14 93 01/16/19 21:52 97.6 F 75 18 128/73 93 01/16/19 16:08 98.4 F 69 16 113/73 92 Intake and Output 01/17/19 01/17/19 01/17/19 07:59 15:59 23:59 Output Total Balance -15 / -15 Output: Urine 0 / 0 Estimated Blood Loss Other: # Voids 1 Blood Glucose* 102 152 - Exam Exam: Constitiutional: Alert and oriented x 3. Well nourished. No acute distress noted Vascular: 1/4 DP/PT bilaterally, CFT <3 sec to all digits, warm to warm from tibia to toes bilaterally, bilaterally Neurologic: Absent sensation to touch, normal plantar response Dermatologic: Antonio stage II ulceration to right calcaneous, left lateral lower extremity ulceration with bone exposure, 100% granulation tissue noted Musculoskeletal: 3/5 muscle strength and normal tone bilaterally. - Lab Result Diagrams: 01/17/19 08:02 01/17/19 08:02 Labs: Abnormal lab results RBC 3.63 M/mcL (4.19-5.50) L 01/17/19 08:02 Hgb 11.5 g/dL (12.9-16.9) L 01/17/19 08:02 Hct 36.3 % (37.5-50.1) L 01/17/19 08:02 Plt Count 137 K/mcL (140-400) L 01/17/19 08:02 MPV 9.2 fL (9.4-12.4) L 01/15/19 20:48 ESR 73 mm/hr (0-10) H 01/16/19 12:01 PT 13.2 Seconds (9.4-12.1) H 01/16/19 04:57 APTT 59.6 Seconds (26.0-36.0) H 01/16/19 04:57 Carbon Dioxide 21 mEq/L (23-29) L 01/15/19 20:48 Creatinine 0.56 mg/dL (0.70-1.30) L 01/17/19 08:02 Glucose 114 mg/dL (70-105) H 01/15/19 20:48 POC Glucose 111 mg/dL (70-99) H 01/16/19 22:30 C-Reactive Protein 26 mg/L (Less than 10) H 01/16/19 12:01 Ethyl Alcohol 46 mg/dL (Less than 10) H 01/15/19 23:15 Microbiology, Last 48 Hours 01/15/19 20:48 Blood Culture - Preliminary Peripheral Venipuncture Culture is incubating and being continuously monitored for growth. Final report to follow. 01/15/19 20:48 Blood Culture - Preliminary Peripheral Venipuncture Culture is incubating and being continuously monitored for growth. Final report to follow. Consult Discharge Plan - Plan Referrals: [facility] [Other] - 01/21/19 3:30 pm Froylan Guido MD [Primary Care Provider] -
[2019-01-17] MEDS ORDERED: RisperiDAL 3 MG TABLET PO SCH (21:00)
== END 2019-01-17 14:05 | disposition home health service (06) ==
LOC: 3ANU 19:53 → EMEROOARM 19:53 → SUATTDRO 22:13 → 3ANU 22:33
PROVIDERS: ADMIT Internal Medicine; ATTEND Internal Medicine

== ENCOUNTER 2019-04-02 14:19 | Inpatient (IN) ==
[2019-04-02 15:46] LABS: Basophils % 0.5 %; Eosinophils # 0.1 K/mcL (0.0-0.6); Hematocrit 35.2 % (37.5-50.1); Hemoglobin 11.6 g/dL (12.9-16.9); Immature Granulocytes % 0.3 % (0-4); Lymphocytes # 1.4 K/mcL (0.6-4.6); Lymphocytes % 23.6 %; Mean Corpuscular Hemoglobin 31.8 pg (28.0-33.3); Mean Corpuscular Volume 96.4 fL (83.0-100.0); Mean Platelet Volume 9.3 fL (9.4-12.4); Monocytes # 0.8 K/mcL (0.0-1.3); Monocytes % 12.9 %; Neutrophils # 3.8 K/mcL (1.6-8.9); Platelet Count 150 K/mcL (140-400); Red Blood Count 3.65 M/mcL (4.19-5.50); Red Cell Distribution Width 13.2 % (11.5-14.5); Segmented Neutrophils % 61.7 %; White Blood Count 6.1 K/mcL (4.3-11.1)
[2019-04-02] MEDS ORDERED: 0.9 % Sodium Chloride 1,000 ML IVC ONE (15:51)
[2019-04-02] MEDS ORDERED: Piperacillin/Tazobactam 3.375 GM in 0.9 % Sodium Chloride Mini Bag 100 ML IVPB ONE (15:51)
[2019-04-02 16:07] LABS: BUN/Creatinine Ratio 18 (6-26); Blood Urea Nitrogen 19 mg/dL (6-20); Calcium 9.2 mg/dL (8.6-10.3); Carbon Dioxide 28 mEq/L (23-29); Chloride 104 mEq/L (98-107); Glucose 140 mg/dL (70-105); Osmolality,Calculated 289 (280-300); Potassium 5.2 mEq/L (3.5-5.1); Sodium 137 mEq/L (136-145); eGFR For African Americans > 60 (> 60); eGFR For Non-African Americans > 60 (> 60)
[2019-04-02] MEDS ORDERED: *HR* OxyCODONE Immed Rel 5 MG TABLET PO STA (16:50)
[2019-04-02] MEDS ORDERED: Naloxone 0.4 MG/ML INJ IVP PRN (17:07)
[2019-04-02] MEDS ORDERED: Acetaminophen 325 MG TABLET PO PRN (17:07)
[2019-04-02] MEDS ORDERED: Ondansetron 4 MG/2 ML VIAL IVP PRN (17:07)
[2019-04-02] MEDS ORDERED: *HR* Promethazine 25 MG/ML VIAL IVP PRN (17:07)
[2019-04-02] MEDS ORDERED: MOM Conc 10 ML UD.LIQ PO PRN (17:07)
[2019-04-02] MEDS ORDERED: Mag Hydrox/Al Hydrox/Simeth 30 ML UDC PO PRN (17:07)
[2019-04-02] MEDS ORDERED: *HR* Dextrose 50 % in Water (Syg) 50 ML SYRINGE IVP PRN (17:10)
[2019-04-02] MEDS ORDERED: Dextrose Gel 15 GM/37.5 ML TUBE PO PRN ×2 (17:10)
[2019-04-02] MEDS ORDERED: D5% in Water 1,000 ML IVC PRN (17:10)
[2019-04-02] MEDS: *HR* Heparin 5,000 UNIT/ML VIAL SQ SCH (22:38)
[2019-04-02] MEDS: Insulin LISPRO 300 UNITS/3 ML VIAL SQ SCH (22:38)
[2019-04-03] MEDS: Piperacillin/Tazobactam 3.375 GM in 0.9 % Sodium Chloride Mini Bag 100 ML IVPB SCH ×4 (00:30→23:30)
[2019-04-03 05:06] LABS: Basophils % 0.4 %; Eosinophils # 0.1 K/mcL (0.0-0.6); Eosinophils % 1.7 %; Hematocrit 34.1 % (37.5-50.1); Hemoglobin 10.9 g/dL (12.9-16.9); Immature Granulocytes % 0.2 % (0-4); Lymphocytes # 0.6 K/mcL (0.6-4.6); Lymphocytes % 10.9 %; Mean Corpuscular Hemoglobin 31.6 pg (28.0-33.3); Mean Corpuscular Volume 98.8 fL (83.0-100.0); Mean Platelet Volume 9.5 fL (9.4-12.4); Monocytes # 0.6 K/mcL (0.0-1.3); Monocytes % 11.3 %; Neutrophils # 3.9 K/mcL (1.6-8.9); Platelet Count 140 K/mcL (140-400); Red Blood Count 3.45 M/mcL (4.19-5.50); Red Cell Distribution Width 13.4 % (11.5-14.5); Segmented Neutrophils % 75.5 %; White Blood Count 5.2 K/mcL (4.3-11.1)
[2019-04-03] MEDS ORDERED: Acetaminophen IV 500 MG/50 ML INFUS..BTL IVPB ONE (05:06)
[2019-04-03 05:28] LABS: BUN/Creatinine Ratio 17 (6-26); Blood Urea Nitrogen 15 mg/dL (6-20); Carbon Dioxide 26 mEq/L (23-29); Chloride 107 mEq/L (98-107); Glucose 88 mg/dL (70-105); Osmolality,Calculated 288 (280-300); Potassium 4.5 mEq/L (3.5-5.1); Sodium 139 mEq/L (136-145); eGFR For African Americans > 60 (> 60); eGFR For Non-African Americans > 60 (> 60)
[2019-04-03] MEDS: *HR* Heparin 5,000 UNIT/ML VIAL SQ SCH ×2 (06:06→16:26)
[2019-04-03] MEDS: Insulin LISPRO 300 UNITS/3 ML VIAL SQ SCH ×4 (07:43→20:55)
[2019-04-03] MEDS ORDERED: diazePAM 10 MG TABLET PO PRN (08:45)
[2019-04-03] MEDS ORDERED: Vancomycin (wt based) 1,000 MG VIAL IVPB SCH (09:00)
[2019-04-03] MEDS ORDERED: Collagenase Oint 1 APPL GRAM TP SCH (09:00)
[2019-04-03] MEDS ORDERED: NON-FORMULARY MEDICATION 1 EACH EACH (Omega-3/Dha/Epa/Fish Oil [Fish Oil 1,000 Mg Softgel] PO SCH (09:00)
[2019-04-03] MEDS: Metoprolol XL (24 HR) Succ 50 MG TAB.ER.24H PO SCH ×2 (09:56→20:55)
[2019-04-03] MEDS: Lisinopril 20 MG TABLET PO SCH (09:57)
[2019-04-03] MEDS: Pregabalin 75 MG CAPSULE PO SCH ×3 (09:57→20:55)
[2019-04-03] MEDS: Loratadine 10 MG TABLET PO SCH (09:57)
[2019-04-03] MEDS: hydroCHLOROthiazide 25 MG TABLET PO SCH (09:58)
[2019-04-03] MEDS: Multivit/Ca/Min/Fe/FA 1 TAB TABLET PO SCH (09:58)
[2019-04-03 09:59] LABS: C-Reactive Protein 32 mg/L (Less than 10)
[2019-04-03] MEDS: Fluticasone Propionate Nasal 50 MCG/SPRAY BOTTLE NS SCH ×2 (10:00→20:55)
[2019-04-03] MEDS: risperiDONE 1 MG TABLET PO SCH (10:02)
[2019-04-03] MEDS: *HR* HYDROcodone/Acet 5/325 mg TABLET PO PRN ×2 (10:32→17:52)
[2019-04-03] MEDS: Nicotine 21 MG PATCH.TD24 TD SCH (16:34)
[2019-04-03] MEDS ORDERED: *HR* LORazepam 2 MG/ML VIAL IVP PRN ×2 (17:21)
[2019-04-03] MEDS: RisperiDAL 3 MG TABLET PO SCH (20:55)
[2019-04-04] MEDS: *HR* HYDROcodone/Acet 5/325 mg TABLET PO PRN (03:19)
[2019-04-04] MEDS: *HR* Heparin 5,000 UNIT/ML VIAL SQ SCH ×2 (05:18→17:00)
[2019-04-04] MEDS: Insulin LISPRO 300 UNITS/3 ML VIAL SQ SCH ×4 (07:46→20:32)
[2019-04-04] MEDS: risperiDONE 1 MG TABLET PO SCH (07:53)
[2019-04-04] MEDS: Metoprolol XL (24 HR) Succ 50 MG TAB.ER.24H PO SCH ×2 (07:55→20:40)
[2019-04-04] MEDS: Piperacillin/Tazobactam 3.375 GM in 0.9 % Sodium Chloride Mini Bag 100 ML IVPB SCH ×3 (07:55→23:00)
[2019-04-04] MEDS: Nicotine 21 MG PATCH.TD24 TD SCH (07:55)
[2019-04-04] MEDS: Lisinopril 20 MG TABLET PO SCH (07:55)
[2019-04-04] MEDS: Folic Acid 1 MG TABLET PO SCH (07:55)
[2019-04-04] MEDS: Loratadine 10 MG TABLET PO SCH (07:55)
[2019-04-04] MEDS: Fluticasone Propionate Nasal 50 MCG/SPRAY BOTTLE NS SCH ×2 (07:55→20:32)
[2019-04-04] MEDS: Multivit/Ca/Min/Fe/FA 1 TAB TABLET PO SCH (07:55)
[2019-04-04] MEDS: hydroCHLOROthiazide 25 MG TABLET PO SCH (07:55)
[2019-04-04] MEDS: Pregabalin 75 MG CAPSULE PO SCH ×3 (07:55→20:40)
[2019-04-04] MEDS: Thiamine (B-1) 100 MG TABLET PO SCH (07:57)
[2019-04-04 10:54] LABS: BUN/Creatinine Ratio 13 (6-26); Blood Urea Nitrogen 13 mg/dL (6-20); eGFR For African Americans > 60 (> 60); eGFR For Non-African Americans > 60 (> 60)
[2019-04-04] MEDS: *HR* OxyCODONE/APAP 5/325 TABLET PO PRN ×2 (12:50→20:40)
[2019-04-04] MEDS: RisperiDAL 3 MG TABLET PO SCH (20:40)
[2019-04-05] MEDS: *HR* Heparin 5,000 UNIT/ML VIAL SQ SCH ×2 (05:34→18:54)
[2019-04-05] MEDS: *HR* OxyCODONE/APAP 5/325 TABLET PO PRN ×3 (06:37→18:54)
[2019-04-05 06:40] LABS: Basophils % 0.9 %; Eosinophils # 0.1 K/mcL (0.0-0.6); Eosinophils % 3.2 %; Hematocrit 31.8 % (37.5-50.1); Hemoglobin 10.6 g/dL (12.9-16.9); Immature Granulocytes % 0.2 % (0-4); Lymphocytes # 1.3 K/mcL (0.6-4.6); Lymphocytes % 28.5 %; Mean Corpuscular HGB Conc 33.3 g/dL (31.6-35.5); Mean Corpuscular Hemoglobin 31.9 pg (28.0-33.3); Mean Corpuscular Volume 95.8 fL (83.0-100.0); Mean Platelet Volume 9.6 fL (9.4-12.4); Monocytes # 0.8 K/mcL (0.0-1.3); Monocytes % 17.4 %; Neutrophils # 2.2 K/mcL (1.6-8.9); Platelet Count 132 K/mcL (140-400); Red Blood Count 3.32 M/mcL (4.19-5.50); Red Cell Distribution Width 13.4 % (11.5-14.5); Segmented Neutrophils % 49.8 %; White Blood Count 4.4 K/mcL (4.3-11.1)
[2019-04-05 06:56] LABS: BUN/Creatinine Ratio 14 (6-26); Blood Urea Nitrogen 13 mg/dL (6-20); Calcium 9.1 mg/dL (8.6-10.3); Carbon Dioxide 26 mEq/L (23-29); Chloride 105 mEq/L (98-107); Glucose 107 mg/dL (70-105); Osmolality,Calculated 285 (280-300); Potassium 4.3 mEq/L (3.5-5.1); Sodium 137 mEq/L (136-145); eGFR For African Americans > 60 (> 60); eGFR For Non-African Americans > 60 (> 60)
[2019-04-05] MEDS: Insulin LISPRO 300 UNITS/3 ML VIAL SQ SCH ×4 (08:28→21:32)
[2019-04-05] MEDS ORDERED: Bupivacaine/Clonidine Syringe 20 ML, Syringe LUER-LOK 1 EACH TP ONE (09:20)
[2019-04-05] MEDS: Pregabalin 75 MG CAPSULE PO SCH ×3 (10:14→21:46)
[2019-04-05] MEDS: Metoprolol XL (24 HR) Succ 50 MG TAB.ER.24H PO SCH ×2 (10:14→21:46)
[2019-04-05] MEDS: Multivit/Ca/Min/Fe/FA 1 TAB TABLET PO SCH (10:15)
[2019-04-05] MEDS: Lisinopril 20 MG TABLET PO SCH (10:15)
[2019-04-05] MEDS: Loratadine 10 MG TABLET PO SCH (10:15)
[2019-04-05] MEDS: Nicotine 21 MG PATCH.TD24 TD SCH (10:15)
[2019-04-05] MEDS: hydroCHLOROthiazide 25 MG TABLET PO SCH (10:15)
[2019-04-05] MEDS: Thiamine (B-1) 100 MG TABLET PO SCH (10:15)
[2019-04-05] MEDS: Folic Acid 1 MG TABLET PO SCH (10:15)
[2019-04-05] MEDS: risperiDONE 1 MG TABLET PO SCH (10:15)
[2019-04-05] MEDS: Piperacillin/Tazobactam 3.375 GM in 0.9 % Sodium Chloride Mini Bag 100 ML IVPB SCH ×3 (10:16→23:58)
[2019-04-05] MEDS: Fluticasone Propionate Nasal 50 MCG/SPRAY BOTTLE NS SCH ×2 (10:16→21:44)
[2019-04-05] MEDS: RisperiDAL 3 MG TABLET PO SCH (21:46)
[2019-04-06] MEDS: *HR* OxyCODONE/APAP 5/325 TABLET PO PRN ×3 (04:34→22:13)
[2019-04-06] MEDS: *HR* Heparin 5,000 UNIT/ML VIAL SQ SCH ×2 (05:48→18:22)
[2019-04-06] MEDS: Insulin LISPRO 300 UNITS/3 ML VIAL SQ SCH ×4 (07:47→20:55)
[2019-04-06] MEDS ORDERED: *HR* Propofol 200 MG/20 ML VIAL IVP ONE (08:36)
[2019-04-06] MEDS ORDERED: *HR* FentaNYL (PF) 100 MCG/2 ML VIAL ONE (08:36)
[2019-04-06] MEDS ORDERED: *HR* Midazolam HCl 2 MG/2 ML VIAL ONE (08:36)
[2019-04-06] MEDS ORDERED: Lidocaine -MPF 2% 2 ML VIAL ONE (08:39)
[2019-04-06] MEDS ORDERED: *HR* Succinylcholine 200 MG/10 ML VIAL IVP ONE (08:41)
[2019-04-06] MEDS: Folic Acid 1 MG TABLET PO SCH (08:54)
[2019-04-06] MEDS: Thiamine (B-1) 100 MG TABLET PO SCH (08:54)
[2019-04-06] MEDS: risperiDONE 1 MG TABLET PO SCH (08:54)
[2019-04-06] MEDS: hydroCHLOROthiazide 25 MG TABLET PO SCH (08:54)
[2019-04-06] MEDS: Metoprolol XL (24 HR) Succ 50 MG TAB.ER.24H PO SCH ×2 (08:54→20:53)
[2019-04-06] MEDS: Pregabalin 75 MG CAPSULE PO SCH ×3 (08:54→20:52)
[2019-04-06] MEDS: Multivit/Ca/Min/Fe/FA 1 TAB TABLET PO SCH (08:54)
[2019-04-06] MEDS: Loratadine 10 MG TABLET PO SCH (08:54)
[2019-04-06] MEDS: Nicotine 21 MG PATCH.TD24 TD SCH (08:55)
[2019-04-06] MEDS: Lisinopril 20 MG TABLET PO SCH (08:55)
[2019-04-06] MEDS: Fluticasone Propionate Nasal 50 MCG/SPRAY BOTTLE NS SCH ×2 (08:56→20:47)
[2019-04-06] MEDS: Piperacillin/Tazobactam 3.375 GM in 0.9 % Sodium Chloride Mini Bag 100 ML IVPB SCH ×3 (08:56→23:14)
[2019-04-06] MEDS ORDERED: *HR* Promethazine 25 MG/ML VIAL IVP PRN ×3 (10:10→12:03)
[2019-04-06] MEDS ORDERED: Ondansetron 4 MG/2 ML VIAL IVP ONE ×2 (10:10→12:03)
[2019-04-06] MEDS ORDERED: *HR* OxyCODONE Immed Rel 5 MG TABLET PO PRN ×2 (10:10→11:42)
[2019-04-06] MEDS ORDERED: Acetaminophen IV 1,000 MG/100 ML INFUS..BTL IVPB ONE ×2 (10:14→12:03)
[2019-04-06] MEDS ORDERED: Lidocaine 1% 20 ML MDV ONE (10:20)
[2019-04-06] MEDS ORDERED: Dexamethasone 4 MG/ML VIAL ONE (10:32)
[2019-04-06] MEDS ORDERED: Ondansetron 4 MG/2 ML VIAL ONE (10:32)
[2019-04-06] MEDS ORDERED: *HR* PHENYLEPHRINE 1,000 MCG/10 ML SYRINGE IVP ONE (10:41)
[2019-04-06] MEDS ORDERED: EPHEDrine 50 MG/ML VIAL ONE (10:59)
[2019-04-06] MEDS: *HR* HYDROmorphone (PF) 1 MG/ML SYRINGE IVP PRN ×2 (11:19→11:31)
[2019-04-06] MEDS ORDERED: Naloxone 0.4 MG/ML INJ IVP PRN (12:03)
[2019-04-06] MEDS ORDERED: *HR* Dextrose 50 % in Water (Syg) 50 ML SYRINGE IVP PRN (12:03)
[2019-04-06] MEDS ORDERED: *HR* HYDROmorphone (PF) 1 MG/ML SYRINGE IVP PRN (12:03)
[2019-04-06] MEDS ORDERED: Dextrose Gel 15 GM/37.5 ML TUBE PO PRN ×2 (12:03)
[2019-04-06] MEDS ORDERED: Acetaminophen 325 MG TABLET PO PRN (12:03)
[2019-04-06] MEDS ORDERED: MOM Conc 10 ML UD.LIQ PO PRN (12:03)
[2019-04-06] MEDS ORDERED: *HR* LORazepam 2 MG/ML VIAL IVP PRN ×2 (12:03)
[2019-04-06] MEDS ORDERED: D5% in Water 1,000 ML IVC PRN (12:03)
[2019-04-06] MEDS ORDERED: Mag Hydrox/Al Hydrox/Simeth 30 ML UDC PO PRN (12:03)
[2019-04-06] MEDS ORDERED: Ondansetron 4 MG/2 ML VIAL IVP PRN (12:03)
[2019-04-06 14:47] LABS: Blood Urea Nitrogen 12 mg/dL (6-20)
[2019-04-06 14:48] LABS: eGFR For African Americans > 60 (> 60); eGFR For Non-African Americans > 60 (> 60)
[2019-04-06] MEDS: RisperiDAL 3 MG TABLET PO SCH (20:53)
[2019-04-07 02:43] LABS: Hematocrit 31.3 % (37.5-50.1); Hemoglobin 10.5 g/dL (12.9-16.9); Mean Corpuscular HGB Conc 33.5 g/dL (31.6-35.5); Mean Corpuscular Hemoglobin 31.9 pg (28.0-33.3); Mean Corpuscular Volume 95.1 fL (83.0-100.0); Mean Platelet Volume 9.9 fL (9.4-12.4); Platelet Count 130 K/mcL (140-400); Red Blood Count 3.29 M/mcL (4.19-5.50); White Blood Count 6.2 K/mcL (4.3-11.1)
[2019-04-07 02:55] LABS: BUN/Creatinine Ratio 13 (6-26); Blood Urea Nitrogen 13 mg/dL (6-20); Calcium 9.3 mg/dL (8.6-10.3); Carbon Dioxide 26 mEq/L (23-29); Chloride 104 mEq/L (98-107); Glucose 166 mg/dL (70-105); Osmolality,Calculated 290 (280-300); Potassium 4.2 mEq/L (3.5-5.1); Sodium 138 mEq/L (136-145); eGFR For African Americans > 60 (> 60); eGFR For Non-African Americans > 60 (> 60)
[2019-04-07] MEDS: *HR* Heparin 5,000 UNIT/ML VIAL SQ SCH ×2 (06:58→16:49)
[2019-04-07] MEDS: Pregabalin 75 MG CAPSULE PO SCH ×3 (08:13→21:06)
[2019-04-07] MEDS: Lisinopril 20 MG TABLET PO SCH (08:13)
[2019-04-07] MEDS: Nicotine 21 MG PATCH.TD24 TD SCH (08:13)
[2019-04-07] MEDS: hydroCHLOROthiazide 25 MG TABLET PO SCH (08:13)
[2019-04-07] MEDS: Loratadine 10 MG TABLET PO SCH (08:16)
[2019-04-07] MEDS: Fluticasone Propionate Nasal 50 MCG/SPRAY BOTTLE NS SCH ×2 (08:16→20:54)
[2019-04-07] MEDS: Folic Acid 1 MG TABLET PO SCH (08:16)
[2019-04-07] MEDS: Metoprolol XL (24 HR) Succ 50 MG TAB.ER.24H PO SCH ×2 (08:16→21:05)
[2019-04-07] MEDS: risperiDONE 1 MG TABLET PO SCH (08:17)
[2019-04-07] MEDS: Thiamine (B-1) 100 MG TABLET PO SCH (08:17)
[2019-04-07] MEDS: Multivit/Ca/Min/Fe/FA 1 TAB TABLET PO SCH (08:17)
[2019-04-07] MEDS: Piperacillin/Tazobactam 3.375 GM in 0.9 % Sodium Chloride Mini Bag 100 ML IVPB SCH ×3 (08:17→23:09)
[2019-04-07] MEDS: Insulin LISPRO 300 UNITS/3 ML VIAL SQ SCH ×4 (08:21→20:54)
[2019-04-07] MEDS: *HR* OxyCODONE/APAP 5/325 TABLET PO PRN ×3 (08:31→21:05)
[2019-04-07] MEDS: RisperiDAL 3 MG TABLET PO SCH (21:06)
[2019-04-08] MEDS: *HR* OxyCODONE/APAP 5/325 TABLET PO PRN ×2 (05:25→12:16)
[2019-04-08] MEDS: *HR* Heparin 5,000 UNIT/ML VIAL SQ SCH (05:53)
[2019-04-08] MEDS: Insulin LISPRO 300 UNITS/3 ML VIAL SQ SCH ×2 (07:47→12:17)
[2019-04-08] MEDS: Thiamine (B-1) 100 MG TABLET PO SCH (09:47)
[2019-04-08] MEDS: Loratadine 10 MG TABLET PO SCH (09:47)
[2019-04-08] MEDS: risperiDONE 1 MG TABLET PO SCH (09:47)
[2019-04-08] MEDS: Multivit/Ca/Min/Fe/FA 1 TAB TABLET PO SCH (09:47)
[2019-04-08] MEDS: Piperacillin/Tazobactam 3.375 GM in 0.9 % Sodium Chloride Mini Bag 100 ML IVPB SCH (09:48)
[2019-04-08] MEDS: Nicotine 21 MG PATCH.TD24 TD SCH (09:48)
[2019-04-08] MEDS: Metoprolol XL (24 HR) Succ 50 MG TAB.ER.24H PO SCH (09:48)
[2019-04-08] MEDS: Lisinopril 20 MG TABLET PO SCH (09:48)
[2019-04-08] MEDS: Folic Acid 1 MG TABLET PO SCH (09:48)
[2019-04-08] MEDS: hydroCHLOROthiazide 25 MG TABLET PO SCH (09:48)
[2019-04-08] MEDS: Pregabalin 75 MG CAPSULE PO SCH ×2 (09:48→14:12)
[2019-04-08] MEDS: Fluticasone Propionate Nasal 50 MCG/SPRAY BOTTLE NS SCH (09:49)
[2019-04-08 11:57] VITALS: BP 114/77
[2019-04-08] MEDS ORDERED: Lidocaine -MPF 1% 5 ML AMPUL INFILT ONE (12:35)
[2019-04-08 12:47] LABS: BUN/Creatinine Ratio 15 (6-26); Blood Urea Nitrogen 16 mg/dL (6-20); eGFR For African Americans > 60 (> 60); eGFR For Non-African Americans > 60 (> 60)
[2019-04-08] MEDS ORDERED: Ertapenem 1,000 MG in 0.9 % Sodium Chloride Mini Bag 100 ML IVPB SCH (13:15)
[2019-04-08] MEDS ORDERED: Aminoglycoside Consult 1 EACH MC ONE (16:33)
== END 2019-04-08 16:34 | disposition home health service (06) | DRG 711 ==
LOC: 3BNU 14:19 → EMEROOARM 14:19 → 3BNU 19:51
PROVIDERS: ADMIT Internal Medicine; ATTEND Internal Medicine

== ENCOUNTER 2020-04-20 14:05 | Observation (INO) ==
[2020-04-20] MEDS ORDERED: *HR* HYDROmorphone (PF) 1 MG/ML SYRINGE IVP ONE ×2 (15:24→17:29)
[2020-04-20] MEDS ORDERED: Ondansetron 4 MG/2 ML VIAL IVP ONE (15:24)
[2020-04-20 15:58] LABS: Basophils # 0.1 K/mcL (0.0-0.2); Basophils % 0.7 %; Eosinophils # 0.1 K/mcL (0.0-0.6); Eosinophils % 1.8 %; Hematocrit 39.6 % (37.5-50.1); Hemoglobin 12.7 g/dL (12.9-16.9); Immature Granulocytes % 1.6 % (0-4); Lymphocytes # 1.5 K/mcL (0.6-4.6); Lymphocytes % 20.6 %; Mean Corpuscular HGB Conc 32.1 g/dL (31.6-35.5); Mean Corpuscular Hemoglobin 31.1 pg (28.0-33.3); Mean Corpuscular Volume 96.8 fL (83.0-100.0); Monocytes # 1.2 K/mcL (0.0-1.3); Monocytes % 16.9 %; Neutrophils # 4.1 K/mcL (1.6-8.9); Platelet Count 193 K/mcL (140-400); Red Blood Count 4.09 M/mcL (4.19-5.50); Red Cell Distribution Width 13.9 % (11.5-14.5); Segmented Neutrophils % 58.4 %; White Blood Count 7.1 K/mcL (4.3-11.1)
[2020-04-20 16:18] LABS: Alanine Aminotransferase 33 Units/L (7-52); Albumin 2.9 g/dL (3.5-5.7); Albumin/Globulin Ratio 0.6 (1.1-2.2); Alkaline Phosphatase 247 Units/L (34-104); Aspartate Amino Transferase 44 Units/L (13-39); BUN/Creatinine Ratio 19 (6-26); Bilirubin,Total 1.9 mg/dL (0.3-1.0); Blood Urea Nitrogen 20 mg/dL (6-20); C-Reactive Protein 75 mg/L (Less than 10); Calcium 8.5 mg/dL (8.6-10.3); Carbon Dioxide 25 mEq/L (23-29); Chloride 99 mEq/L (98-107); Globulin 4.6 g/dL (2.4-3.5); Glucose 274 mg/dL (70-105); Osmolality,Calculated 280 (280-300); Potassium 4.7 mEq/L (3.5-5.1); Sodium 129 mEq/L (136-145); Total Protein 7.5 g/dL (6.4-8.9); eGFR For African Americans > 60 (> 60); eGFR For Non-African Americans > 60 (> 60)
[2020-04-20] MEDS ORDERED: Ampicillin/Sulbactam 3,000 MG in 0.9 % Sodium Chloride 100 ML IVPB ONE (16:47)
[2020-04-20] MEDS ORDERED: Vancomycin 2,000 MG/520 ML IV.SOLN IVPB STA ×2 (16:52→17:46)
[2020-04-20] MEDS ORDERED: Ampicillin/Sulbactam 3,000 MG in 0.9 % Sodium Chloride Mini Bag 100 ML IVPB ONE (17:00)
[2020-04-20] MEDS ORDERED: *HR* HYDROmorphone 2 MG TABLET PO ONE (17:52)
[2020-04-20] MEDS ORDERED: D5% in Water 1,000 ML IVC PRN (17:56)
[2020-04-20] MEDS ORDERED: Dextrose Gel 15 GM/37.5 ML TUBE PO PRN ×2 (17:56)
[2020-04-20] MEDS ORDERED: *HR* Dextrose 50 % in Water (Vial) 50 ML VIAL IVP PRN (17:56)
[2020-04-20] MEDS ORDERED: *HR* LORazepam 2 MG/ML VIAL IVP PRN ×3 (17:57)
[2020-04-20] MEDS: Nicotine 21 MG PATCH.TD24 TD SCH (18:11)
[2020-04-20] MEDS ORDERED: Naloxone 0.4 MG/ML INJ IVP PRN (18:16)
[2020-04-20] MEDS ORDERED: Ondansetron 4 MG/2 ML VIAL IVP PRN (18:16)
[2020-04-20 18:25] LABS: Amylase 63 Units/L (29-103); Ethanol < 10 mg/dL (Less than 10); Lipase 252 Units/L (11-82)
[2020-04-20] MEDS: *HR* HYDROcodone/Acet 5/325 mg TABLET PO PRN (20:56)
[2020-04-20] MEDS: Pregabalin 75 MG CAPSULE PO SCH (20:57)
[2020-04-20] MEDS: *HR* Heparin 5,000 UNIT/ML VIAL SQ SCH (20:58)
[2020-04-20] MEDS: RisperiDAL 3 MG TABLET PO SCH (20:58)
[2020-04-20] MEDS: Insulin LISPRO 300 UNITS/3 ML VIAL SQ SCH (20:59)
[2020-04-20] MEDS: Piperacillin/Tazobactam 3.375 GM in 0.9 % Sodium Chloride Mini Bag 100 ML IVPB SCH (23:56)
[2020-04-21 04:56] LABS: Hematocrit 37.3 % (37.5-50.1); Mean Corpuscular HGB Conc 32.2 g/dL (31.6-35.5); Mean Corpuscular Hemoglobin 31.3 pg (28.0-33.3); Mean Corpuscular Volume 97.4 fL (83.0-100.0); Mean Platelet Volume 9.8 fL (9.4-12.4); Platelet Count 176 K/mcL (140-400); Red Blood Count 3.83 M/mcL (4.19-5.50); Red Cell Distribution Width 13.9 % (11.5-14.5); White Blood Count 4.9 K/mcL (4.3-11.1)
[2020-04-21 05:16] LABS: BUN/Creatinine Ratio 17 (6-26); Blood Urea Nitrogen 18 mg/dL (6-20); Calcium 8.4 mg/dL (8.6-10.3); Carbon Dioxide 23 mEq/L (23-29); Chloride 104 mEq/L (98-107); Chol/HDL Ratio 6.5 (0-4.9); Cholesterol 85 mg/dL (< 200); Glucose 202 mg/dL (70-105); HDL Cholesterol 13 mg/dL (40-59); LDL Cholesterol,Calculated 30 mg/dL (< 100); Osmolality,Calculated 280 (280-300); Phosphorous 3.6 mg/dL (2.7-4.5); Potassium 4.3 mEq/L (3.5-5.1); Sodium 131 mEq/L (136-145); Triglycerides 212 mg/dL (< 150); eGFR For African Americans > 60 (> 60); eGFR For Non-African Americans > 60 (> 60)
[2020-04-21] MEDS ORDERED: Vancomycin 2,000 MG/520 ML IV.SOLN IVPB SCH (06:00)
[2020-04-21] MEDS: *HR* Heparin 5,000 UNIT/ML VIAL SQ SCH ×3 (06:18→22:34)
[2020-04-21] MEDS: Piperacillin/Tazobactam 3.375 GM in 0.9 % Sodium Chloride Mini Bag 100 ML IVPB SCH ×2 (08:45→16:24)
[2020-04-21] MEDS: Thiamine (B-1) 100 MG TABLET PO SCH (08:46)
[2020-04-21] MEDS: Folic Acid 1 MG TABLET PO SCH (08:46)
[2020-04-21] MEDS: Pregabalin 75 MG CAPSULE PO SCH ×3 (08:46→22:33)
[2020-04-21] MEDS: Vitamin B Complex/Vit C/Vit E 1 EACH TABLET PO SCH (08:46)
[2020-04-21] MEDS: risperiDONE 1 MG TABLET PO SCH (08:47)
[2020-04-21] MEDS: *HR* HYDROcodone/Acet 5/325 mg TABLET PO PRN (08:47)
[2020-04-21] MEDS: Loratadine 10 MG TABLET PO SCH (08:47)
[2020-04-21] MEDS: Insulin LISPRO 300 UNITS/3 ML VIAL SQ SCH ×4 (08:48→22:32)
[2020-04-21 09:55] LABS: Estimated Average Glucose 220 mg/dl
[2020-04-21] MEDS: Metoprolol XL (24 HR) Succ 50 MG TAB.ER.24H PO SCH ×2 (13:48→22:33)
[2020-04-21] MEDS: *HR* LORazepam 0.5 MG TABLET PO SCH ×2 (13:48→22:34)
[2020-04-21] MEDS: Nicotine 21 MG PATCH.TD24 TD SCH (16:22)
[2020-04-21] MEDS: *HR* OxyCODONE/APAP 7.5/325 TABLET PO PRN ×2 (16:47→22:37)
[2020-04-21] MEDS ORDERED: Vancomycin 1,500 MG/265 ML IV.SOLN IVPB SCH (18:00)
[2020-04-21] MEDS: RisperiDAL 3 MG TABLET PO SCH (22:33)
[2020-04-22] MEDS: Piperacillin/Tazobactam 3.375 GM in 0.9 % Sodium Chloride Mini Bag 100 ML IVPB SCH ×3 (01:09→17:14)
[2020-04-22 05:13] LABS: Basophils % 0.8 %; Eosinophils # 0.1 K/mcL (0.0-0.6); Eosinophils % 2.2 %; Hematocrit 34.8 % (37.5-50.1); Hemoglobin 11.5 g/dL (12.9-16.9); Immature Granulocytes % 1.2 % (0-4); Lymphocytes % 19.3 %; Mean Corpuscular Volume 96.9 fL (83.0-100.0); Monocytes # 0.9 K/mcL (0.0-1.3); Monocytes % 17.6 %; Platelet Count 190 K/mcL (140-400); Red Blood Count 3.59 M/mcL (4.19-5.50); Red Cell Distribution Width 13.8 % (11.5-14.5); Segmented Neutrophils % 58.9 %; White Blood Count 5.1 K/mcL (4.3-11.1)
[2020-04-22 05:23] LABS: Alanine Aminotransferase 27 Units/L (7-52); Albumin 2.7 g/dL (3.5-5.7); Albumin/Globulin Ratio 0.6 (1.1-2.2); Alkaline Phosphatase 249 Units/L (34-104); Aspartate Amino Transferase 36 Units/L (13-39); BUN/Creatinine Ratio 13 (6-26); Bilirubin,Direct 0.7 mg/dL (0.0-0.2); Bilirubin,Indirect 0.8 mg/dL (0.0-1.0); Bilirubin,Total 1.5 mg/dL (0.3-1.0); Blood Urea Nitrogen 13 mg/dL (6-20); Calcium 8.4 mg/dL (8.6-10.3); Carbon Dioxide 24 mEq/L (23-29); Chloride 104 mEq/L (98-107); Globulin 4.2 g/dL (2.4-3.5); Glucose 259 mg/dL (70-105); Magnesium 2.1 mg/dL (1.6-2.6); Osmolality,Calculated 281 (280-300); Potassium 4.9 mEq/L (3.5-5.1); Sodium 131 mEq/L (136-145); Total Protein 6.9 g/dL (6.4-8.9); eGFR For African Americans > 60 (> 60); eGFR For Non-African Americans > 60 (> 60)
[2020-04-22] MEDS: *HR* Heparin 5,000 UNIT/ML VIAL SQ SCH ×3 (06:27→21:37)
[2020-04-22] MEDS ORDERED: Vancomycin 1,250 MG/262.5 ML IV.SOLN IVPB SCH (08:00)
[2020-04-22] MEDS: Insulin LISPRO 300 UNITS/3 ML VIAL SQ SCH ×4 (09:02→21:37)
[2020-04-22] MEDS: Pregabalin 75 MG CAPSULE PO SCH ×3 (09:03→21:36)
[2020-04-22] MEDS: Folic Acid 1 MG TABLET PO SCH (09:04)
[2020-04-22] MEDS: *HR* LORazepam 0.5 MG TABLET PO SCH ×3 (09:04→21:36)
[2020-04-22] MEDS: Loratadine 10 MG TABLET PO SCH (09:04)
[2020-04-22] MEDS: Metoprolol XL (24 HR) Succ 50 MG TAB.ER.24H PO SCH ×2 (09:04→21:36)
[2020-04-22] MEDS: risperiDONE 1 MG TABLET PO SCH (09:04)
[2020-04-22] MEDS: Thiamine (B-1) 100 MG TABLET PO SCH (09:04)
[2020-04-22] MEDS: Multivit/Ca/Min/Fe/FA 1 TAB TABLET PO SCH (09:04)
[2020-04-22] MEDS: Vitamin B Complex/Vit C/Vit E 1 EACH TABLET PO SCH (09:04)
[2020-04-22] MEDS: *HR* OxyCODONE/APAP 7.5/325 TABLET PO PRN ×3 (09:05→21:36)
[2020-04-22] MEDS: Nicotine 21 MG PATCH.TD24 TD SCH (17:14)
[2020-04-22] MEDS: RisperiDAL 3 MG TABLET PO SCH (21:36)
[2020-04-23] MEDS: Piperacillin/Tazobactam 3.375 GM in 0.9 % Sodium Chloride Mini Bag 100 ML IVPB SCH ×2 (00:56→08:26)
[2020-04-23] MEDS: *HR* OxyCODONE/APAP 7.5/325 TABLET PO PRN ×2 (01:37→09:35)
[2020-04-23] MEDS: *HR* Heparin 5,000 UNIT/ML VIAL SQ SCH (06:54)
[2020-04-23 07:14] LABS: Basophils # 0.1 K/mcL (0.0-0.2); Basophils % 0.8 %; Eosinophils # 0.1 K/mcL (0.0-0.6); Eosinophils % 1.6 %; Hematocrit 35.4 % (37.5-50.1); Hemoglobin 11.1 g/dL (12.9-16.9); Immature Granulocytes % 0.8 % (0-4); Lymphocytes # 1.1 K/mcL (0.6-4.6); Lymphocytes % 17.7 %; Mean Corpuscular HGB Conc 31.4 g/dL (31.6-35.5); Mean Corpuscular Hemoglobin 30.8 pg (28.0-33.3); Mean Corpuscular Volume 98.3 fL (83.0-100.0); Mean Platelet Volume 9.6 fL (9.4-12.4); Monocytes % 16.1 %; Neutrophils # 3.9 K/mcL (1.6-8.9); Platelet Count 188 K/mcL (140-400); Red Cell Distribution Width 13.9 % (11.5-14.5); White Blood Count 6.2 K/mcL (4.3-11.1)
[2020-04-23 07:36] LABS: BUN/Creatinine Ratio 12 (6-26); Blood Urea Nitrogen 12 mg/dL (6-20); Calcium 8.6 mg/dL (8.6-10.3); Carbon Dioxide 26 mEq/L (23-29); Chloride 102 mEq/L (98-107); Glucose 173 mg/dL (70-105); Osmolality,Calculated 276 (280-300); Potassium 4.9 mEq/L (3.5-5.1); Sodium 131 mEq/L (136-145); eGFR For African Americans > 60 (> 60); eGFR For Non-African Americans > 60 (> 60)
[2020-04-23] MEDS ORDERED: Piperacillin/Tazobactam 3.375 GM VIAL ONE (08:22)
[2020-04-23] MEDS: Insulin LISPRO 300 UNITS/3 ML VIAL SQ SCH ×2 (08:25→12:40)
[2020-04-23] MEDS: Thiamine (B-1) 100 MG TABLET PO SCH (08:26)
[2020-04-23] MEDS: Pregabalin 75 MG CAPSULE PO SCH (08:26)
[2020-04-23] MEDS: Loratadine 10 MG TABLET PO SCH (08:27)
[2020-04-23] MEDS: Folic Acid 1 MG TABLET PO SCH (08:27)
[2020-04-23] MEDS: *HR* LORazepam 0.5 MG TABLET PO SCH (08:27)
[2020-04-23] MEDS: Multivit/Ca/Min/Fe/FA 1 TAB TABLET PO SCH (08:27)
[2020-04-23] MEDS: risperiDONE 1 MG TABLET PO SCH (08:27)
[2020-04-23] MEDS: Vitamin B Complex/Vit C/Vit E 1 EACH TABLET PO SCH (08:27)
[2020-04-23] MEDS: Metoprolol XL (24 HR) Succ 50 MG TAB.ER.24H PO SCH (08:27)
[2020-04-23] MEDS ORDERED: Insulin DETEMIR 100 UNIT/ML X5UNITS SQ SCH (09:00)
[2020-04-23] MEDS ORDERED: Vancomycin 1,500 MG/265 ML IV.SOLN IVPB SCH (09:00)
[2020-04-23 11:38] VITALS: BP 128/71
== END 2020-04-23 14:29 | disposition home or self-care (01) ==
LOC: EMEROOARM 14:05 → 3ANU 14:05 → SUATTDRO 17:38 → 3ANU 18:53
PROVIDERS: ADMIT Internal Medicine; ATTEND Pharmacist

== ENCOUNTER 2020-09-22 15:31 | Observation (INO) ==
[2020-09-22] MEDS ORDERED: Piperacillin/Tazobactam 3.375 GM in Water for inj. (sterile) 20 ML IVP ONE (17:05)
[2020-09-22] MEDS ORDERED: *HR* FentaNYL (PF) 100 MCG/2 ML VIAL IVP ONE (17:08)
[2020-09-22] MEDS ORDERED: Vancomycin 2,000 MG/520 ML IV.SOLN IVPB ONE (17:15)
[2020-09-22 17:29] LABS: Basophils % 0.6 %; Eosinophils # 0.1 K/mcL (0.0-0.6); Eosinophils % 1.9 %; Hematocrit 35.9 % (37.5-50.1); Hemoglobin 11.7 g/dL (12.9-16.9); Immature Granulocytes % 0.3 % (0-4); Lymphocytes # 1.1 K/mcL (0.6-4.6); Lymphocytes % 16.5 %; Mean Corpuscular HGB Conc 32.6 g/dL (31.6-35.5); Mean Corpuscular Hemoglobin 31.8 pg (28.0-33.3); Mean Corpuscular Volume 97.6 fL (83.0-100.0); Mean Platelet Volume 10.4 fL (9.4-12.4); Monocytes # 0.9 K/mcL (0.0-1.3); Monocytes % 13.1 %; Neutrophils # 4.6 K/mcL (1.6-8.9); Platelet Count 141 K/mcL (140-400); Red Blood Count 3.68 M/mcL (4.19-5.50); Red Cell Distribution Width 13.6 % (11.5-14.5); Segmented Neutrophils % 67.6 %; White Blood Count 6.9 K/mcL (4.3-11.1)
[2020-09-22 19:14] LABS: BUN/Creatinine Ratio 13 (6-26); Blood Urea Nitrogen 14 mg/dL (6-20); Calcium 8.3 mg/dL (8.6-10.3); Carbon Dioxide 21 mEq/L (23-29); Chloride 105 mEq/L (98-107); Glucose 210 mg/dL (70-105); Osmolality,Calculated 281 (280-300); Potassium 6.4 mEq/L (3.5-5.1); Sodium 132 mEq/L (136-145); eGFR For African Americans > 60 (> 60); eGFR For Non-African Americans > 60 (> 60)
[2020-09-22] MEDS ORDERED: Acetaminophen 325 MG TABLET PO PRN (19:56)
[2020-09-22] MEDS ORDERED: *HR* HYDROcodone/Acet 5/325 mg TABLET PO PRN (19:56)
[2020-09-22] MEDS ORDERED: Naloxone 0.4 MG/ML INJ IVP PRN (19:56)
[2020-09-22] MEDS ORDERED: Ondansetron 4 MG/2 ML VIAL IVP PRN (20:04)
[2020-09-22 20:06] LABS: C-Reactive Protein 47 mg/L (Less than 10)
[2020-09-22] MEDS ORDERED: Calcium Gluconate 1gm/50mL 1 GM/50 ML BAG IVPB ONE ×2 (20:07→23:30)
[2020-09-22] MEDS ORDERED: 0.9 % Sodium Chloride 500 ML IVC PRN (20:07)
[2020-09-22] MEDS: *HR* OxyCODONE Immed Rel 5 MG TABLET PO PRN (20:21)
[2020-09-22] MEDS ORDERED: D5% in Water 1,000 ML IVC PRN (21:56)
[2020-09-22] MEDS ORDERED: *HR* Dextrose 50 % in Water (Vial) 50 ML VIAL IVP PRN (21:56)
[2020-09-22] MEDS ORDERED: Dextrose Gel 15 GM/37.5 ML TUBE PO PRN ×2 (21:56)
[2020-09-22] MEDS ORDERED: Nicotine 21 MG PATCH.TD24 TD SCH (23:30)
[2020-09-22] MEDS: *HR* Heparin 5,000 UNIT/ML VIAL SQ SCH (23:58)
[2020-09-23] MEDS: Insulin LISPRO 300 UNITS/3 ML VIAL SUBQ SCH ×2 (00:22→07:42)
[2020-09-23 00:38] LABS: BUN/Creatinine Ratio 13 (6-26); Blood Urea Nitrogen 12 mg/dL (6-20); Calcium 8.4 mg/dL (8.6-10.3); Carbon Dioxide 20 mEq/L (23-29); Chloride 104 mEq/L (98-107); Glucose 220 mg/dL (70-105); Osmolality,Calculated 283 (280-300); Potassium 4.2 mEq/L (3.5-5.1); Sodium 133 mEq/L (136-145); eGFR For African Americans > 60 (> 60); eGFR For Non-African Americans > 60 (> 60)
[2020-09-23] MEDS ORDERED: *HR* LORazepam 2 MG/ML VIAL IVP PRN ×2 (01:22)
[2020-09-23 04:47] LABS: Basophils % 0.6 %; Eosinophils # 0.2 K/mcL (0.0-0.6); Eosinophils % 4.2 %; Hematocrit 33.9 % (37.5-50.1); Hemoglobin 11.1 g/dL (12.9-16.9); Immature Granulocytes % 0.2 % (0-4); Lymphocytes # 0.5 K/mcL (0.6-4.6); Lymphocytes % 11.4 %; Mean Corpuscular HGB Conc 32.7 g/dL (31.6-35.5); Mean Corpuscular Hemoglobin 31.6 pg (28.0-33.3); Mean Corpuscular Volume 96.6 fL (83.0-100.0); Mean Platelet Volume 9.4 fL (9.4-12.4); Monocytes # 0.5 K/mcL (0.0-1.3); Monocytes % 10.9 %; Neutrophils # 3.5 K/mcL (1.6-8.9); Platelet Count 115 K/mcL (140-400); Red Blood Count 3.51 M/mcL (4.19-5.50); Red Cell Distribution Width 13.7 % (11.5-14.5); Segmented Neutrophils % 72.7 %; White Blood Count 4.8 K/mcL (4.3-11.1)
[2020-09-23 04:53] LABS: INR 1.3; Prothrombin Time 15.2 Seconds (9.4-12.1)
[2020-09-23] MEDS ORDERED: Vancomycin 2,000 MG/520 ML IV.SOLN IVPB SCH (05:00)
[2020-09-23 05:12] LABS: BUN/Creatinine Ratio 13 (6-26); Blood Urea Nitrogen 11 mg/dL (6-20); Calcium 8.4 mg/dL (8.6-10.3); Carbon Dioxide 23 mEq/L (23-29); Chloride 106 mEq/L (98-107); Glucose 127 mg/dL (70-105); Osmolality,Calculated 279 (280-300); Potassium 4.2 mEq/L (3.5-5.1); Sodium 134 mEq/L (136-145); eGFR For African Americans > 60 (> 60); eGFR For Non-African Americans > 60 (> 60)
[2020-09-23] MEDS: *HR* Heparin 5,000 UNIT/ML VIAL SQ SCH (05:43)
[2020-09-23] MEDS ORDERED: Piperacillin/Tazobactam 3.375 GM in 0.9 % Sodium Chloride Mini Bag 100 ML IVPB SCH ×2 (06:00→16:00)
[2020-09-23] MEDS: *HR* OxyCODONE Immed Rel 5 MG TABLET PO PRN ×2 (06:29→13:17)
[2020-09-23] MEDS ORDERED: Ipratropium/Albuterol Neb 3 ML IH SCH (10:00)
[2020-09-23 11:39] VITALS: BP 118/73
[2020-09-23] MEDS ORDERED: *HR* Metoprolol 5 MG/5 ML VIAL IVP SCH (12:00)
[2020-09-23] MEDS ORDERED: Doxycycline 100 MG CAPSULE PO SCH (18:00)
[2020-09-23] MEDS ORDERED: Thiamine (B-1) 100 MG, Folic Acid 1 MG, MVI, adult with vitamin K 10 ML in 0.9 % Sodi... IVPB SCH (18:00)
[2020-09-23] MEDS ORDERED: Insulin LISPRO 300 UNITS/3 ML VIAL SUBQ SCH (21:00)
[2020-09-24] MEDS ORDERED: Vancomycin 2,000 MG/520 ML IV.SOLN IVPB SCH (05:00)
[2020-09-24] MEDS ORDERED: levoFLOXacin 750 MG TABLET PO SCH (09:00)
== END 2020-09-23 14:18 | disposition home or self-care (01) ==
LOC: 3NENU 15:31 → EMEROOARM 15:31 → SUATTDRO 18:55 → 3NENU 22:15
PROVIDERS: ADMIT Student in an Organized Health Care Education/Training Program; ATTEND General Practice

== ENCOUNTER 2021-01-28 00:39 | Inpatient (IN) ==
[2021-01-28 01:21] LABS: Basophils % 0.2 %; Hematocrit 36.5 % (37.5-50.1); Hemoglobin 12.1 g/dL (12.9-16.9); Immature Granulocytes % 4.4 % (0-4); Immature Platelets 3.6 % (1.1-6.1); Lymphocytes # 0.4 K/mcL (0.6-4.6); Mean Corpuscular HGB Conc 33.2 g/dL (31.6-35.5); Mean Corpuscular Hemoglobin 32.1 pg (28.0-33.3); Mean Corpuscular Volume 96.8 fL (83.0-100.0); Mean Platelet Volume 10.4 fL (9.4-12.4); Monocytes # 1.5 K/mcL (0.0-1.3); Monocytes % 10.3 %; Neutrophils # 11.7 K/mcL (1.6-8.9); Red Blood Count 3.77 M/mcL (4.19-5.50); Red Cell Distribution Width 15.8 % (11.5-14.5); Segmented Neutrophils % 82.1 %; White Blood Count 14.2 K/mcL (4.3-11.1)
[2021-01-28 01:22] LABS: Platelet Count 99 K/mcL (140-400)
[2021-01-28 01:42] LABS: Alanine Aminotransferase 19 Units/L (7-52); Albumin 2.9 g/dL (3.5-5.7); Albumin/Globulin Ratio 0.5 (1.1-2.2); Alkaline Phosphatase 149 Units/L (34-104); Aspartate Amino Transferase 39 Units/L (13-39); BUN/Creatinine Ratio 15 (6-26); Bilirubin,Indirect 1.8 mg/dL (0.0-1.0); Bilirubin,Total 3.8 mg/dL (0.3-1.0); Blood Urea Nitrogen 20 mg/dL (6-20); Calcium 8.4 mg/dL (8.6-10.3); Carbon Dioxide 18 mEq/L (23-29); Chloride 101 mEq/L (98-107); Globulin 5.5 g/dL (2.4-3.5); Glucose 212 mg/dL (70-105); Magnesium 1.4 mg/dL (1.6-2.6); Osmolality,Calculated 275 (280-300); Phosphorous 1.6 mg/dL (2.7-4.5); Potassium 4.6 mEq/L (3.5-5.1); Sodium 128 mEq/L (136-145); Total Protein 8.4 g/dL (6.4-8.9); Troponin I 0.06 ng/mL (< 0.04); eGFR For African Americans > 60 (> 60); eGFR For Non-African Americans 57 (> 60)
[2021-01-28 02:14] LABS: INR 1.9; Prothrombin Time 21.4 Seconds (9.4-12.1)
[2021-01-28 02:16] LABS: Activated Partial Thrombo Time 66.8 Seconds (26.0-36.0)
[2021-01-28 03:00] LABS: Adenovirus Not Detected (Not Detect)
[2021-01-28 03:01] LABS: Coronavirus 229E Not Detected (Not Detect); Coronavirus HKU1 Not Detected (Not Detect); Coronavirus NL63 Not Detected (Not Detect); Coronavirus OC43 Not Detected (Not Detect); Human Metapneumovirus Not Detected (Not Detect); Human Rhinovirus/Enterovirus Not Detected (Not Detect); Influenza A Subtype 2009 H1 Not Detected (Not Detect); SARS-CoV-2 Not Detected (Not Detect)
[2021-01-28 03:02] LABS: Bordetella Pertussis Not Detected (Not Detect); Chlamydophila pneumoniae Not Detected (Not Detect); Influenza B Not Detected (Not Detect); Mycoplasma pneumoniae Not Detected (Not Detect); Parainfluenza Virus 1 Not Detected (Not Detect); Parainfluenza Virus 2 Not Detected (Not Detect); Parainfluenza Virus 3 Not Detected (Not Detect); Parainfluenza Virus 4 Not Detected (Not Detect); Respiratory Syncytial Virus Not Detected (Not Detect)
[2021-01-28] MEDS ORDERED: Furosemide 40 MG/4 ML VIAL IVP ONE (03:22)
[2021-01-28] MEDS ORDERED: Vancomycin 2,000 MG/520 ML IV.SOLN IVPB ONE ×2 (04:29→18:00)
[2021-01-28] MEDS ORDERED: Piperacillin/Tazobactam 3.375 GM in 0.9 % Sodium Chloride Mini Bag 100 ML IVPB ONE (04:29)
[2021-01-28] MEDS ORDERED: Azithromycin 500 MG in 0.9 % Sodium Chloride 250 ML IVPB ONE (04:31)
[2021-01-28] MEDS ORDERED: Ondansetron 4 MG/2 ML VIAL IVP PRN (05:00)
[2021-01-28] MEDS ORDERED: Naloxone 0.4 MG/ML INJ IVP PRN (05:00)
[2021-01-28] MEDS ORDERED: Acetaminophen 325 MG TABLET PO PRN (05:00)
[2021-01-28] MEDS ORDERED: 0.9 % Sodium Chloride 500 ML IVC PRN (05:04)
[2021-01-28] MEDS ORDERED: Perflutren Lipid Microsphere 1.3 ML in 0.9 % Sodium Chloride 8.7 ML IVP PRN (05:08)
[2021-01-28] MEDS ORDERED: *HR* Dextrose 50 % in Water (Vial) 50 ML VIAL IVP PRN (05:56)
[2021-01-28] MEDS ORDERED: Dextrose Gel 15 GM/37.5 ML TUBE PO PRN ×2 (05:56)
[2021-01-28] MEDS ORDERED: D5% in Water 1,000 ML IVC PRN (05:56)
[2021-01-28] MEDS ORDERED: *HR* LORazepam 2 MG/ML VIAL IVP PRN ×3 (06:03→10:33)
[2021-01-28] MEDS ORDERED: Pantoprazole 40 MG VIAL IVP SCH (09:00)
[2021-01-28] MEDS ORDERED: *HR* HYDROmorphone (PF) 1 MG/ML SYRINGE IVP STA (10:20)
[2021-01-28] MEDS: Insulin LISPRO 300 UNITS/3 ML VIAL SUBQ SCH ×4 (10:32→23:46)
[2021-01-28] MEDS: Thiamine (B-1) 100 MG TABLET PO SCH (10:32)
[2021-01-28] MEDS: Folic Acid 1 MG TABLET PO SCH (10:32)
[2021-01-28] MEDS: Metoprolol XL (24 HR) Succ 50 MG TAB.ER.24H PO SCH (10:54)
[2021-01-28] MEDS: Aspirin 81 MG TAB.CHEW PO SCH (10:54)
[2021-01-28] MEDS: Furosemide 20 MG/2 ML VIAL IVP SCH ×2 (11:15→19:55)
[2021-01-28 11:20] LABS: Troponin I 0.17 ng/mL (< 0.04)
[2021-01-28] MEDS: Piperacillin/Tazobactam 3.375 GM in 0.9 % Sodium Chloride Mini Bag 100 ML IVPB SCH ×2 (13:11→19:55)
[2021-01-28 13:56] LABS: Magnesium 1.7 mg/dL (1.6-2.6)
[2021-01-28] MEDS ORDERED: *HR* Heparin 5,000 UNIT/ML VIAL SQ SCH (14:00)
[2021-01-28 16:27] LABS: Acinetobacter baumannii by PCR Not Detected (Not Detect); Candida albicans by PCR Not Detected (Not Detect); Candida glabrata by PCR Not Detected (Not Detect); Candida krusei by PCR Not Detected (Not Detect); Candida parapsilosis by PCR Not Detected (Not Detect); Candida tropicalis by PCR Not Detected (Not Detect); Enterobacter cloacae Cmplx PCR Not Detected (Not Detect); Enterobacteriaceae by PCR Not Detected (Not Detect); Enterococcus by PCR Not Detected (Not Detect); Escherichia coli by PCR Not Detected (Not Detect); Klebsiella oxytoca by PCR Not Detected (Not Detect); Klebsiella pneumoniae by PCR Not Detected (Not Detect); Proteus by PCR Not Detected (Not Detect); Pseudomonas aeruginosa by PCR Not Detected (Not Detect); Serratia marcescens by PCR Not Detected (Not Detect); Staphylococcus aureus by PCR DETECTED (Not Detect); Streptococcus agalactiae(B)PCR Not Detected (Not Detect); Streptococcus by PCR Not Detected (Not Detect); Streptococcus pneumoniae PCR Not Detected (Not Detect); Streptococcus pyogenes (A) PCR Not Detected (Not Detect); mecA Methicillin-Resist Gene Not Detected (Not Detect)
[2021-01-28] MEDS ORDERED: *HR* Heparin 5,000 UNIT/ML VIAL IVP PRN (20:20)
[2021-01-28 21:02] LABS: Hemoglobin 11.2 g/dL (12.9-16.9); White Blood Count 10.3 K/mcL (4.3-11.1)
[2021-01-28 21:04] LABS: Hematocrit 34.4 % (37.5-50.1); Immature Platelets 5.3 % (1.1-6.1); Mean Corpuscular HGB Conc 32.6 g/dL (31.6-35.5); Mean Corpuscular Hemoglobin 31.8 pg (28.0-33.3); Mean Corpuscular Volume 97.7 fL (83.0-100.0); Mean Platelet Volume 10.4 fL (9.4-12.4); Red Blood Count 3.52 M/mcL (4.19-5.50); Red Cell Distribution Width 16.2 % (11.5-14.5)
[2021-01-28 21:11] LABS: Heparin anti-factor XA UFH < 0.04 IU/mL (0.30-0.70)
[2021-01-28 21:12] LABS: INR 1.9; Prothrombin Time 21.4 Seconds (9.4-12.1)
[2021-01-28 22:22] LABS: Albumin 2.6 g/dL (3.5-5.7); Albumin/Globulin Ratio 0.5 (1.1-2.2); Bilirubin,Direct 1.6 mg/dL (0.0-0.2); Bilirubin,Indirect 1.1 mg/dL (0.0-1.0); Bilirubin,Total 2.7 mg/dL (0.3-1.0); Globulin 4.9 g/dL (2.4-3.5); Magnesium 1.6 mg/dL (1.6-2.6); Total Protein 7.5 g/dL (6.4-8.9)
[2021-01-28 22:34] LABS: Thyroid Stimulating Hormone 0.813 mcIU/mL (0.340-5.600)
[2021-01-28] MEDS: Levalbuterol Neb 1.25 MG/3 ML IH SCH (22:54)
[2021-01-29] MEDS: Heparin 25,000UNIT/250ML 1/2NS 25,000 UNIT/250 ML IV.SOLN IVC SCH ×2 (00:20→19:15)
[2021-01-29 00:32] LABS: Bilirubin,Urine Negative (Negative); Blood,Urine Large (Negative); Budding Yeast,Urine Many per hpf (None Seen); Clarity,Urine Ex.Turbid (Clear); Color,Urine Light-Orange (Yellow); Glucose,Urine (UA) Normal (Normal); Ketones,Urine Negative (Negative); Leukocyte Esterase,Urine Negative (Negative); Nitrite,Urine Negative (Negative); Protein,Urine 100 mg/dL (Neg-Trace); RBC,Urine TNTC per hpf (0-3); Specific Gravity,Urine 1.014 (1.010-1.025); Urobilinogen,Urine Normal (Normal); WBC,Urine 15-30 per hpf (0-3)
[2021-01-29 00:37] LABS: Sodium, Urine 61.1 mEq/L
[2021-01-29 00:38] LABS: Amphetamine Screen,Urine Positive ng/mL (Cutoff=1000); Barbiturate Screen,Urine Negative ng/mL (Cutoff=200); Benzodiazepines Screen,Urine Positive ng/mL (Cutoff=200); Cannabinoid Screen,Urine Negative ng/mL (Cutoff = 50); Cocaine Screen,Urine Negative ng/mL (Cutoff= 300); Opiate Screen,Urine Negative ng/mL (Cutoff=300); Phencyclidine Screen,Urine Negative ng/mL (Cutoff=25)
[2021-01-29 00:38] LABS: ABG Base Excess -2 mEq/L (-2 to 3); ABG HCO3 24 mEq/L (21-27); ABG Oxygen Saturation 93 % (95-98); ABG PCO2 43 mmHg (35-45); ABG PH 7.36 pH Units (7.32-7.45); ABG PO2 71 mmHg (85-104); ABG TCO2 25 mEq/L (20-26)
[2021-01-29 00:51] LABS: Mean Corpuscular Volume 99.1 fL (83.0-100.0); Mean Platelet Volume 10.4 fL (9.4-12.4)
[2021-01-29 00:53] LABS: Basophils # 0.1 K/mcL (0.0-0.2); Basophils % 0.6 %; Hematocrit 32.4 % (37.5-50.1); Hemoglobin 10.5 g/dL (12.9-16.9); Immature Granulocytes % 1.2 % (0-4); Immature Platelets 4.4 % (1.1-6.1); Lymphocytes # 0.5 K/mcL (0.6-4.6); Lymphocytes % 5.2 %; Mean Corpuscular HGB Conc 32.4 g/dL (31.6-35.5); Mean Corpuscular Hemoglobin 32.1 pg (28.0-33.3); Monocytes # 1.3 K/mcL (0.0-1.3); Monocytes % 14.1 %; Neutrophils # 7.3 K/mcL (1.6-8.9); Red Blood Count 3.27 M/mcL (4.19-5.50); Red Cell Distribution Width 16.3 % (11.5-14.5); Segmented Neutrophils % 78.9 %; White Blood Count 9.3 K/mcL (4.3-11.1)
[2021-01-29 00:56] LABS: Platelet Count 79 K/mcL (140-400)
[2021-01-29 01:08] LABS: Calcium 8.2 mg/dL (8.6-10.3); Magnesium 1.7 mg/dL (1.6-2.6); Potassium 4.1 mEq/L (3.5-5.1)
[2021-01-29 01:11] LABS: Platelet Estimate Decreased (Normal)
[2021-01-29] MEDS: Levalbuterol Neb 1.25 MG/3 ML IH SCH ×4 (03:53→22:27)
[2021-01-29] MEDS ORDERED: Vancomycin 1,500 MG/265 ML IV.SOLN IVPB SCH ×2 (06:00→23:00)
[2021-01-29] MEDS: Piperacillin/Tazobactam 3.375 GM in 0.9 % Sodium Chloride Mini Bag 100 ML IVPB SCH ×3 (07:19→22:02)
[2021-01-29] MEDS: Insulin LISPRO 300 UNITS/3 ML VIAL SUBQ SCH ×4 (10:25→22:00)
[2021-01-29] MEDS: Thiamine (B-1) 100 MG TABLET PO SCH (10:27)
[2021-01-29] MEDS: Folic Acid 1 MG TABLET PO SCH (10:27)
[2021-01-29] MEDS: Aspirin 81 MG TAB.CHEW PO SCH (10:27)
[2021-01-29] MEDS: Metoprolol XL (24 HR) Succ 50 MG TAB.ER.24H PO SCH (10:27)
[2021-01-29] MEDS: *HR* HYDROmorphone (PF) 1 MG/ML SYRINGE IVP PRN (13:30)
[2021-01-29] MEDS: *HR* Heparin 5,000 UNIT/ML VIAL IVP PRN (16:04)
[2021-01-29] MEDS ORDERED: methylPREDNISolone 125 MG/2 ML VIAL IVP ONE (16:48)
[2021-01-29] MEDS ORDERED: *HR* Metoprolol 5 MG/5 ML VIAL IVP PRN (17:13)
[2021-01-29] MEDS ORDERED: cefTRIAXone 1,000 MG in 0.9 % Sodium Chloride Mini Bag 100 ML IVPB SCH (21:49)
[2021-01-30] MEDS: *HR* Heparin 5,000 UNIT/ML VIAL IVP PRN (01:51)
[2021-01-30] MEDS: Levalbuterol Neb 1.25 MG/3 ML IH SCH ×4 (03:55→22:23)
[2021-01-30] MEDS: Piperacillin/Tazobactam 3.375 GM in 0.9 % Sodium Chloride Mini Bag 100 ML IVPB SCH ×3 (05:52→21:53)
[2021-01-30] MEDS ORDERED: MethylPREDNISolone 40 MG/ML VIAL IVP SCH (06:00)
[2021-01-30 08:06] LABS: Mean Platelet Volume 10.8 fL (9.4-12.4)
[2021-01-30 08:08] LABS: Hematocrit 30.4 % (37.5-50.1); Hemoglobin 9.9 g/dL (12.9-16.9); Immature Platelets 4.8 % (1.1-6.1); Mean Corpuscular HGB Conc 32.6 g/dL (31.6-35.5); Mean Corpuscular Volume 98.4 fL (83.0-100.0); Red Blood Count 3.09 M/mcL (4.19-5.50); Red Cell Distribution Width 16.4 % (11.5-14.5); White Blood Count 4.4 K/mcL (4.3-11.1)
[2021-01-30 08:24] LABS: Calcium 8.3 mg/dL (8.6-10.3); Potassium 4.2 mEq/L (3.5-5.1)
[2021-01-30 08:32] LABS: Platelet Count 59 K/mcL (140-400)
[2021-01-30 08:35] LABS: Lymphocytes # 0.5 K/mcL (0.6-4.6); Monocytes # 0.2 K/mcL (0.0-1.3); Neutrophils # 3.7 K/mcL (1.6-8.9); Platelet Estimate Decreased (Normal)
[2021-01-30] MEDS ORDERED: Thiamine (B-1) 100 MG in 0.9 % Sodium Chloride 50 ML IVPB SCH (09:00)
[2021-01-30] MEDS ORDERED: Folic Acid 1 MG in 0.9 % Sodium Chloride 50 ML IVPB SCH (09:00)
[2021-01-30] MEDS: Thiamine (B-1) 100 MG TABLET PO SCH (10:26)
[2021-01-30] MEDS: Metoprolol XL (24 HR) Succ 50 MG TAB.ER.24H PO SCH (10:26)
[2021-01-30] MEDS: Insulin LISPRO 300 UNITS/3 ML VIAL SUBQ SCH ×4 (10:27→21:54)
[2021-01-30] MEDS: Aspirin 81 MG TAB.CHEW PO SCH (10:27)
[2021-01-30] MEDS: *HR* HYDROmorphone (PF) 1 MG/ML SYRINGE IVP PRN (13:30)
[2021-01-30] MEDS ORDERED: *HR* HYDROmorphone (PF) 1 MG/ML SYRINGE IVP PRN (14:07)
[2021-01-30] MEDS ORDERED: Vancomycin 1,500 MG/265 ML IV.SOLN IVPB SCH (15:00)
[2021-01-31] MEDS: Levalbuterol Neb 1.25 MG/3 ML IH SCH ×4 (04:42→21:30)
[2021-01-31] MEDS: Piperacillin/Tazobactam 3.375 GM in 0.9 % Sodium Chloride Mini Bag 100 ML IVPB SCH ×3 (05:11→20:47)
[2021-01-31 07:12] LABS: Mean Platelet Volume 11.4 fL (9.4-12.4); Red Blood Count 3.24 M/mcL (4.19-5.50)
[2021-01-31 07:14] LABS: Basophils % 0.3 %; Hemoglobin 10.3 g/dL (12.9-16.9); Immature Granulocytes % 0.5 % (0-4); Immature Platelets 6.8 % (1.1-6.1); Lymphocytes # 0.6 K/mcL (0.6-4.6); Lymphocytes % 9.3 %; Mean Corpuscular HGB Conc 32.2 g/dL (31.6-35.5); Mean Corpuscular Hemoglobin 31.8 pg (28.0-33.3); Mean Corpuscular Volume 98.8 fL (83.0-100.0); Monocytes # 0.5 K/mcL (0.0-1.3); Monocytes % 7.1 %; Neutrophils # 5.4 K/mcL (1.6-8.9); Red Cell Distribution Width 16.3 % (11.5-14.5); Segmented Neutrophils % 82.8 %; White Blood Count 6.5 K/mcL (4.3-11.1)
[2021-01-31 07:19] LABS: Platelet Count 72 K/mcL (140-400)
[2021-01-31 07:27] LABS: BUN/Creatinine Ratio 30 (6-26); Blood Urea Nitrogen 40 mg/dL (6-20); Calcium 8.5 mg/dL (8.6-10.3); Carbon Dioxide 23 mEq/L (23-29); Chloride 103 mEq/L (98-107); Glucose 229 mg/dL (70-105); Osmolality,Calculated 289 (280-300); Potassium 4.2 mEq/L (3.5-5.1); Sodium 131 mEq/L (136-145); eGFR For African Americans > 60 (> 60); eGFR For Non-African Americans 56 (> 60)
[2021-01-31] MEDS: Insulin LISPRO 300 UNITS/3 ML VIAL SUBQ SCH ×4 (08:46→20:46)
[2021-01-31] MEDS: Thiamine (B-1) 100 MG TABLET PO SCH (08:46)
[2021-01-31] MEDS: Metoprolol XL (24 HR) Succ 50 MG TAB.ER.24H PO SCH (08:46)
[2021-01-31] MEDS: Aspirin 81 MG TAB.CHEW PO SCH (08:46)
[2021-01-31] MEDS ORDERED: predniSONE 20 MG TABLET PO SCH (09:00)
[2021-01-31 10:19] LABS: Acinetobacter baumannii by PCR Not Detected (Not Detect); Candida albicans by PCR Not Detected (Not Detect); Candida glabrata by PCR Not Detected (Not Detect); Candida krusei by PCR Not Detected (Not Detect); Candida parapsilosis by PCR Not Detected (Not Detect); Candida tropicalis by PCR Not Detected (Not Detect); Enterobacter cloacae Cmplx PCR Not Detected (Not Detect); Enterobacteriaceae by PCR Not Detected (Not Detect); Enterococcus by PCR Not Detected (Not Detect); Escherichia coli by PCR Not Detected (Not Detect); Klebsiella oxytoca by PCR Not Detected (Not Detect); Klebsiella pneumoniae by PCR Not Detected (Not Detect); Proteus by PCR Not Detected (Not Detect); Pseudomonas aeruginosa by PCR Not Detected (Not Detect); Serratia marcescens by PCR Not Detected (Not Detect); Staphylococcus aureus by PCR DETECTED (Not Detect); Streptococcus agalactiae(B)PCR Not Detected (Not Detect); Streptococcus by PCR Not Detected (Not Detect); Streptococcus pneumoniae PCR Not Detected (Not Detect); Streptococcus pyogenes (A) PCR Not Detected (Not Detect); mecA Methicillin-Resist Gene Not Detected (Not Detect)
[2021-01-31] MEDS ORDERED: Perflutren Lipid Microsphere 1.3 ML in 0.9 % Sodium Chloride 8.7 ML IVP PRN (11:22)
[2021-02-01] MEDS: Levalbuterol Neb 1.25 MG/3 ML IH SCH (03:54)
[2021-02-01] MEDS ORDERED: Piperacillin/Tazobactam 3.375 GM VIAL ONE (05:03)
[2021-02-01 06:10] VITALS: BP 132/70; PULSE 67; TEMP 98.4; O2SAT 99
[2021-02-01] MEDS: Piperacillin/Tazobactam 3.375 GM in 0.9 % Sodium Chloride Mini Bag 100 ML IVPB SCH (06:10)
[2021-02-01 06:29] LABS: Basophils % 0.1 %; Hematocrit 33.5 % (37.5-50.1); Hemoglobin 10.9 g/dL (12.9-16.9); Immature Granulocytes % 0.6 % (0-4); Mean Corpuscular HGB Conc 32.5 g/dL (31.6-35.5); Monocytes % 10.8 %
[2021-02-01 06:31] LABS: Immature Platelets 4.4 % (1.1-6.1); Lymphocytes % 13.5 %; Mean Corpuscular Hemoglobin 31.8 pg (28.0-33.3); Mean Corpuscular Volume 97.7 fL (83.0-100.0); Mean Platelet Volume 10.8 fL (9.4-12.4); Monocytes # 0.8 K/mcL (0.0-1.3); Neutrophils # 5.3 K/mcL (1.6-8.9); Red Blood Count 3.43 M/mcL (4.19-5.50); Red Cell Distribution Width 15.9 % (11.5-14.5); White Blood Count 7.1 K/mcL (4.3-11.1)
[2021-02-01 06:33] LABS: Platelet Count 92 K/mcL (140-400)
[2021-02-01 06:59] LABS: BUN/Creatinine Ratio 28 (6-26); Blood Urea Nitrogen 35 mg/dL (6-20); Calcium 8.8 mg/dL (8.6-10.3); Carbon Dioxide 24 mEq/L (23-29); Chloride 100 mEq/L (98-107); Glucose 192 mg/dL (70-105); Osmolality,Calculated 287 (280-300); Potassium 3.9 mEq/L (3.5-5.1); Sodium 132 mEq/L (136-145); eGFR For African Americans > 60 (> 60); eGFR For Non-African Americans > 60 (> 60)
[2021-02-01] MEDS: Insulin LISPRO 300 UNITS/3 ML VIAL SUBQ SCH (07:44)
== END 2021-02-01 08:42 | disposition left against medical advice (07) | DRG 720 ==
LOC: 3ANU 00:39 → EMEROOARM 00:39 → SUATTDRO 05:10 → 3ANU 06:37
PROVIDERS: ADMIT Internal Medicine; ATTEND Student in an Organized Health Care Education/Training Program

== ENCOUNTER 2021-03-23 12:46 | Inpatient (IN) ==
[2021-03-23] MEDS ORDERED: Piperacillin/Tazobactam 3.375 GM in Water for inj. (sterile) 20 ML IVP ONE (13:43)
[2021-03-23] MEDS: *HR* OxyCODONE Immed Rel 5 MG TABLET PO PRN (13:54)
[2021-03-23] MEDS ORDERED: Vancomycin 2,000 MG/520 ML IV.SOLN IVPB ONE (14:00)
[2021-03-23] MEDS ORDERED: Isovue-370 500 ML BOTTLE IVP ONE (14:04)
[2021-03-23 14:05] LABS: Basophils % 0.4 %; Eosinophils # 0.2 K/mcL (0.0-0.6); Eosinophils % 1.9 %; Hematocrit 26.9 % (37.5-50.1); Hemoglobin 8.6 g/dL (12.9-16.9); Immature Granulocytes % 0.5 % (0-4); Lymphocytes # 1.5 K/mcL (0.6-4.6); Lymphocytes % 17.8 %; Mean Corpuscular Hemoglobin 30.1 pg (28.0-33.3); Mean Corpuscular Volume 94.1 fL (83.0-100.0); Monocytes # 0.7 K/mcL (0.0-1.3); Monocytes % 8.6 %; Neutrophils # 5.9 K/mcL (1.6-8.9); Platelet Count 183 K/mcL (140-400); Red Blood Count 2.86 M/mcL (4.19-5.50); Red Cell Distribution Width 14.1 % (11.5-14.5); Segmented Neutrophils % 70.8 %; White Blood Count 8.3 K/mcL (4.3-11.1)
[2021-03-23 14:39] LABS: Alanine Aminotransferase 15 Units/L (7-52); Albumin/Globulin Ratio 0.3 (1.1-2.2); Alkaline Phosphatase 295 Units/L (34-104); Aspartate Amino Transferase 32 Units/L (13-39); BUN/Creatinine Ratio 9 (6-26); Bilirubin,Direct 0.2 mg/dL (0.0-0.2); Bilirubin,Indirect 0.9 mg/dL (0.0-1.0); Bilirubin,Total 1.1 mg/dL (0.3-1.0); Blood Urea Nitrogen 34 mg/dL (6-20); C-Reactive Protein 132 mg/L (Less than 10); Calcium 7.6 mg/dL (8.6-10.3); Carbon Dioxide 21 mEq/L (23-29); Chloride 101 mEq/L (98-107); Globulin 7.1 g/dL (2.4-3.5); Glucose 207 mg/dL (70-105); Osmolality,Calculated 284 (280-300); Potassium 4.7 mEq/L (3.5-5.1); Sodium 130 mEq/L (136-145); Total Protein 9.1 g/dL (6.4-8.9); Troponin I < 0.03 ng/mL (< 0.04); eGFR For African Americans 22 (> 60); eGFR For Non-African Americans 18 (> 60)
[2021-03-23] MEDS ORDERED: 0.9 % Sodium Chloride 1,000 ML IVC ONE ×2 (15:04→15:05)
[2021-03-23] MEDS ORDERED: *HR* Dextrose 50 % in Water (Syg) 50 ML SYRINGE IVP PRN (16:43)
[2021-03-23] MEDS ORDERED: Acetaminophen 325 MG TABLET PO PRN (16:43)
[2021-03-23] MEDS ORDERED: Mag Hydrox/Al Hydrox/Simeth 30 ML UDC PO PRN (16:43)
[2021-03-23] MEDS ORDERED: Dextrose Gel 15 GM/37.5 ML TUBE PO PRN ×2 (16:43)
[2021-03-23] MEDS ORDERED: Melatonin 3 MG TABLET PO PRN (16:43)
[2021-03-23] MEDS ORDERED: D5% in Water 1,000 ML IVC PRN (16:43)
[2021-03-23] MEDS ORDERED: MOM Conc 10 ML UD.LIQ PO PRN (16:43)
[2021-03-23] MEDS ORDERED: Naloxone 0.4 MG/ML INJ IVP PRN (16:43)
[2021-03-23] MEDS ORDERED: Ondansetron 4 MG/2 ML VIAL IVP PRN (16:43)
[2021-03-23] MEDS ORDERED: *HR* FentaNYL (PF) 100 MCG/2 ML VIAL IVP PRN (16:51)
[2021-03-23] MEDS ORDERED: *HR* LORazepam 2 MG/ML VIAL IVP PRN ×3 (16:58)
[2021-03-23 17:04] LABS: Estimated Average Glucose 111 mg/dl; Hemoglobin A1C 5.5 %
[2021-03-23] MEDS ORDERED: ALPRAZolam 0.5 MG TABLET PO PRN (17:04)
[2021-03-23] MEDS: Metoprolol XL (24 HR) Succ 50 MG TAB.ER.24H PO SCH (21:29)
[2021-03-23] MEDS: Pregabalin 75 MG CAPSULE PO SCH (21:29)
[2021-03-23] MEDS: *HR* Heparin 5,000 UNIT/ML VIAL SQ SCH ×2 (21:29→21:35)
[2021-03-23] MEDS: Insulin LISPRO 300 UNITS/3 ML VIAL SUBQ SCH (22:00)
[2021-03-23] MEDS ORDERED: *HR* LORazepam 2 MG/ML VIAL IVP ONE (23:09)
[2021-03-24] MEDS: risperiDONE 1 MG TABLET PO SCH ×2 (01:38→20:30)
[2021-03-24] MEDS: Piperacillin/Tazobactam 3.375 GM in 0.9 % Sodium Chloride Mini Bag 100 ML IVPB SCH ×2 (02:21→14:13)
[2021-03-24] MEDS: 0.9 % Sodium Chloride 1,000 ML IVC SCH ×2 (02:26→23:48)
[2021-03-24 03:29] LABS: Hematocrit 24.9 % (37.5-50.1); Hemoglobin 7.6 g/dL (12.9-16.9); Mean Corpuscular HGB Conc 30.5 g/dL (31.6-35.5); Mean Corpuscular Hemoglobin 29.5 pg (28.0-33.3); Mean Corpuscular Volume 96.5 fL (83.0-100.0); Mean Platelet Volume 9.7 fL (9.4-12.4); Platelet Count 162 K/mcL (140-400); Red Blood Count 2.58 M/mcL (4.19-5.50); Red Cell Distribution Width 14.2 % (11.5-14.5); White Blood Count 7.4 K/mcL (4.3-11.1)
[2021-03-24 03:53] LABS: Calcium 7.6 mg/dL (8.6-10.3); Magnesium 1.4 mg/dL (1.6-2.6); Potassium 4.3 mEq/L (3.5-5.1)
[2021-03-24] MEDS: *HR* Heparin 5,000 UNIT/ML VIAL SQ SCH ×3 (05:51→20:31)
[2021-03-24] MEDS: Folic Acid 1 MG TABLET PO SCH ×2 (07:23→08:06)
[2021-03-24] MEDS: Vitamin B Complex/Vit C/Vit E 1 EACH TABLET PO SCH ×2 (07:24→08:06)
[2021-03-24] MEDS: Thiamine (B-1) 100 MG TABLET PO SCH ×2 (07:25→08:06)
[2021-03-24] MEDS: Metoprolol XL (24 HR) Succ 50 MG TAB.ER.24H PO SCH ×2 (08:06→20:30)
[2021-03-24] MEDS: Loratadine 10 MG TABLET PO SCH (08:06)
[2021-03-24] MEDS: Nicotine 21 MG PATCH.TD24 TD SCH ×2 (08:06→22:27)
[2021-03-24] MEDS: Pregabalin 75 MG CAPSULE PO SCH ×3 (08:06→20:30)
[2021-03-24] MEDS: Insulin LISPRO 300 UNITS/3 ML VIAL SUBQ SCH ×4 (08:08→20:31)
[2021-03-24 09:01] LABS: Hematocrit 24.5 % (37.5-50.1); Hemoglobin 7.8 g/dL (12.9-16.9)
[2021-03-24 09:23] LABS: Calcium 7.7 mg/dL (8.6-10.3); Potassium 4.4 mEq/L (3.5-5.1)
[2021-03-24 09:52] LABS: Folate > 22.3 ng/mL (3.0-16.0); Vitamin B12 855 pg/mL (250-1100)
[2021-03-24 11:08] LABS: Thyroid Stimulating Hormone 9.608 mcIU/mL (0.340-5.600)
[2021-03-24 13:43] LABS: Sodium, Urine 68.2 mEq/L
[2021-03-24 14:47] LABS: Bilirubin,Urine Negative (Negative); Blood,Urine Large (Negative); Budding Yeast,Urine Moderate per hpf (None Seen); Clarity,Urine Turbid (Clear); Color,Urine Yellow (Yellow); Glucose,Urine (UA) 30 mg/dL (Normal); Ketones,Urine Negative (Negative); Leukocyte Esterase,Urine Negative (Negative); Nitrite,Urine Negative (Negative); PH,Urine 5.5 pH Units (5.0-8.0); Protein,Urine 50 mg/dL (Neg-Trace); RBC,Urine TNTC per hpf (0-3); Specific Gravity,Urine 1.012 (1.010-1.025); Squamous Epithelial Cell,Urine Few per hpf (None-Few); Transitional Epi Cells,Urine Few per hpf (None-Few); Urobilinogen,Urine Normal (Normal)
[2021-03-24 14:56] LABS: Uric Acid 10.2 mg/dL (2.3-7.6)
[2021-03-24 15:23] LABS: Hepatitis B Surface Antigen Nonreactive (Nonreactive)
[2021-03-24 15:52] LABS: Hepatitis C Virus Antibody Nonreactive (Nonreactive)
[2021-03-24 15:53] LABS: Hepatitis B Core IgM Nonreactive (Nonreactive)
[2021-03-24 15:55] LABS: Hepatitis A Antibody IgM Nonreactive (Nonreactive)
[2021-03-24 16:44] LABS: Triiodothyronine (T3) Free 3.61 pg/mL (2.50-3.90)
[2021-03-24] MEDS: *HR* OxyCODONE Immed Rel 5 MG TABLET PO PRN (22:28)
[2021-03-25] MEDS: Piperacillin/Tazobactam 3.375 GM in 0.9 % Sodium Chloride Mini Bag 100 ML IVPB SCH (02:01)
[2021-03-25 02:58] LABS: Basophils % 0.6 %; Eosinophils # 0.2 K/mcL (0.0-0.6); Eosinophils % 2.9 %; Hematocrit 21.8 % (37.5-50.1); Immature Granulocytes % 0.3 % (0-4); Lymphocytes # 1.8 K/mcL (0.6-4.6); Lymphocytes % 28.3 %; Mean Corpuscular HGB Conc 32.1 g/dL (31.6-35.5); Mean Corpuscular Hemoglobin 30.2 pg (28.0-33.3); Mean Platelet Volume 9.6 fL (9.4-12.4); Monocytes # 0.7 K/mcL (0.0-1.3); Neutrophils # 3.6 K/mcL (1.6-8.9); Platelet Count 151 K/mcL (140-400); Red Blood Count 2.32 M/mcL (4.19-5.50); Red Cell Distribution Width 14.3 % (11.5-14.5); Segmented Neutrophils % 56.9 %; White Blood Count 6.3 K/mcL (4.3-11.1)
[2021-03-25 03:20] LABS: Calcium 7.6 mg/dL (8.6-10.3); Potassium 4.3 mEq/L (3.5-5.1)
[2021-03-25] MEDS: *HR* Heparin 5,000 UNIT/ML VIAL SQ SCH ×3 (05:34→21:45)
[2021-03-25] MEDS: Loratadine 10 MG TABLET PO SCH (08:55)
[2021-03-25] MEDS: Folic Acid 1 MG TABLET PO SCH (08:55)
[2021-03-25] MEDS: Vitamin B Complex/Vit C/Vit E 1 EACH TABLET PO SCH (08:55)
[2021-03-25] MEDS: Thiamine (B-1) 100 MG TABLET PO SCH (08:55)
[2021-03-25] MEDS: Metoprolol XL (24 HR) Succ 50 MG TAB.ER.24H PO SCH ×2 (08:55→20:22)
[2021-03-25] MEDS: Pregabalin 75 MG CAPSULE PO SCH ×3 (08:55→20:22)
[2021-03-25] MEDS: Insulin LISPRO 300 UNITS/3 ML VIAL SUBQ SCH ×4 (08:55→20:10)
[2021-03-25] MEDS ORDERED: Iron Sucrose Complex 400 MG in 0.9 % Sodium Chloride 250 ML IVPB ONE (09:11)
[2021-03-25 09:15] LABS: Hematocrit 22.5 % (37.5-50.1); Hemoglobin 7.3 g/dL (12.9-16.9)
[2021-03-25] MEDS: 0.9 % Sodium Chloride 1,000 ML IVC SCH (12:16)
[2021-03-25] MEDS: *HR* OxyCODONE Immed Rel 5 MG TABLET PO PRN ×2 (12:26→20:22)
[2021-03-25] MEDS: Cefepime HCl 1,000 MG in 0.9 % Sodium Chloride Mini Bag 100 ML IVPB SCH (16:59)
[2021-03-25] MEDS ORDERED: Cefepime HCl 2,000 MG in 0.9 % Sodium Chloride Mini Bag 100 ML IVPB SCH (18:00)
[2021-03-25] MEDS: risperiDONE 1 MG TABLET PO SCH (20:21)
[2021-03-25] MEDS: Nicotine 21 MG PATCH.TD24 TD SCH (21:38)
[2021-03-25] MEDS ORDERED: Vancomycin 500 MG in 0.9 % Sodium Chloride Mini Bag 100 ML IVPB ONE (22:00)
[2021-03-26] MEDS: 0.9 % Sodium Chloride 1,000 ML IVC SCH ×2 (03:33→15:06)
[2021-03-26 03:49] LABS: Basophils % 0.5 %; Eosinophils # 0.2 K/mcL (0.0-0.6); Eosinophils % 2.7 %; Hematocrit 21.8 % (37.5-50.1); Immature Granulocytes % 0.2 % (0-4); Mean Corpuscular HGB Conc 32.1 g/dL (31.6-35.5); Mean Corpuscular Hemoglobin 30.6 pg (28.0-33.3); Mean Corpuscular Volume 95.2 fL (83.0-100.0); Mean Platelet Volume 9.7 fL (9.4-12.4); Monocytes # 0.7 K/mcL (0.0-1.3); Monocytes % 12.2 %; Platelet Count 142 K/mcL (140-400); Red Blood Count 2.29 M/mcL (4.19-5.50); Red Cell Distribution Width 14.3 % (11.5-14.5); Segmented Neutrophils % 50.4 %; White Blood Count 5.9 K/mcL (4.3-11.1)
[2021-03-26 03:56] LABS: Calcium 7.8 mg/dL (8.6-10.3); Potassium 4.4 mEq/L (3.5-5.1)
[2021-03-26] MEDS: Cefepime HCl 1,000 MG in 0.9 % Sodium Chloride Mini Bag 100 ML IVPB SCH ×2 (05:34→17:43)
[2021-03-26] MEDS: *HR* Heparin 5,000 UNIT/ML VIAL SQ SCH ×3 (05:35→20:59)
[2021-03-26] MEDS: Insulin LISPRO 300 UNITS/3 ML VIAL SUBQ SCH ×4 (07:21→21:00)
[2021-03-26] MEDS: Thiamine (B-1) 100 MG TABLET PO SCH (08:32)
[2021-03-26] MEDS: Pregabalin 75 MG CAPSULE PO SCH ×3 (08:32→21:00)
[2021-03-26] MEDS: Vitamin B Complex/Vit C/Vit E 1 EACH TABLET PO SCH (08:32)
[2021-03-26] MEDS: Metoprolol XL (24 HR) Succ 50 MG TAB.ER.24H PO SCH ×2 (08:32→21:00)
[2021-03-26] MEDS: Folic Acid 1 MG TABLET PO SCH (08:32)
[2021-03-26] MEDS: Loratadine 10 MG TABLET PO SCH (08:33)
[2021-03-26 10:23] LABS: Hematocrit 23.3 % (37.5-50.1); Hemoglobin 7.3 g/dL (12.9-16.9)
[2021-03-26] MEDS ORDERED: Sodium Bicarbonate 50 MEQ in 0.45 % Sodium Chloride 1,000 ML IVC SCH (12:30)
[2021-03-26] MEDS: Sodium Bicarbonate 50 MEQ in 0.45 % Sodium Chloride 1,000 ML IVC SCH (13:51)
[2021-03-26] MEDS: *HR* OxyCODONE Immed Rel 5 MG TABLET PO PRN ×2 (15:23→21:08)
[2021-03-26] MEDS: risperiDONE 1 MG TABLET PO SCH (20:59)
[2021-03-26] MEDS: Nicotine 21 MG PATCH.TD24 TD SCH (22:59)
[2021-03-27] MEDS: Sodium Bicarbonate 50 MEQ in 0.45 % Sodium Chloride 1,000 ML IVC SCH ×3 (02:49→21:31)
[2021-03-27 04:20] LABS: Basophils % 0.5 %; Eosinophils # 0.2 K/mcL (0.0-0.6); Eosinophils % 3.1 %; Immature Granulocytes % 0.4 % (0-4); Lymphocytes # 1.9 K/mcL (0.6-4.6); Lymphocytes % 34.7 %; Mean Corpuscular HGB Conc 31.8 g/dL (31.6-35.5); Mean Corpuscular Hemoglobin 30.3 pg (28.0-33.3); Mean Corpuscular Volume 95.2 fL (83.0-100.0); Mean Platelet Volume 9.8 fL (9.4-12.4); Monocytes # 0.8 K/mcL (0.0-1.3); Monocytes % 13.5 %; Neutrophils # 2.7 K/mcL (1.6-8.9); Platelet Count 129 K/mcL (140-400); Red Blood Count 2.31 M/mcL (4.19-5.50); Red Cell Distribution Width 14.4 % (11.5-14.5); Segmented Neutrophils % 47.8 %; White Blood Count 5.6 K/mcL (4.3-11.1)
[2021-03-27 04:30] LABS: Calcium 7.8 mg/dL (8.6-10.3); Potassium 4.5 mEq/L (3.5-5.1)
[2021-03-27] MEDS: Cefepime HCl 1,000 MG in 0.9 % Sodium Chloride Mini Bag 100 ML IVPB SCH ×2 (05:47→17:17)
[2021-03-27] MEDS: *HR* Heparin 5,000 UNIT/ML VIAL SQ SCH ×3 (05:48→21:32)
[2021-03-27] MEDS: Insulin LISPRO 300 UNITS/3 ML VIAL SUBQ SCH ×4 (07:29→21:32)
[2021-03-27] MEDS: Folic Acid 1 MG TABLET PO SCH (08:26)
[2021-03-27] MEDS: Loratadine 10 MG TABLET PO SCH (08:26)
[2021-03-27] MEDS: Metoprolol XL (24 HR) Succ 50 MG TAB.ER.24H PO SCH ×2 (08:26→21:31)
[2021-03-27] MEDS: Thiamine (B-1) 100 MG TABLET PO SCH (08:26)
[2021-03-27] MEDS: Vitamin B Complex/Vit C/Vit E 1 EACH TABLET PO SCH (08:26)
[2021-03-27] MEDS: Pregabalin 75 MG CAPSULE PO SCH ×3 (08:26→21:32)
[2021-03-27] MEDS: *HR* OxyCODONE Immed Rel 5 MG TABLET PO PRN ×2 (08:26→19:37)
[2021-03-27 10:28] LABS: Hematocrit 23.5 % (37.5-50.1); Hemoglobin 7.3 g/dL (12.9-16.9)
[2021-03-27] MEDS ORDERED: Sodium Bicarbonate 50 MEQ in 0.45 % Sodium Chloride 1,000 ML IVC SCH (11:00)
[2021-03-27] MEDS: risperiDONE 1 MG TABLET PO SCH (21:32)
[2021-03-27] MEDS: Nicotine 21 MG PATCH.TD24 TD SCH (23:01)
[2021-03-28] MEDS: Cefepime HCl 1,000 MG in 0.9 % Sodium Chloride Mini Bag 100 ML IVPB SCH ×2 (05:48→17:55)
[2021-03-28] MEDS: *HR* Heparin 5,000 UNIT/ML VIAL SQ SCH ×3 (05:49→20:52)
[2021-03-28 07:47] LABS: Basophils % 0.4 %; Immature Granulocytes % 0.2 % (0-4); Mean Platelet Volume 10.3 fL (9.4-12.4); Red Cell Distribution Width 14.6 % (11.5-14.5)
[2021-03-28 07:49] LABS: Eosinophils # 0.1 K/mcL (0.0-0.6); Eosinophils % 1.9 %; Hematocrit 21.9 % (37.5-50.1); Hemoglobin 6.8 g/dL (12.9-16.9); Immature Platelets 2.2 % (1.1-6.1); Lymphocytes # 1.9 K/mcL (0.6-4.6); Lymphocytes % 36.5 %; Mean Corpuscular HGB Conc 31.1 g/dL (31.6-35.5); Mean Corpuscular Hemoglobin 30.1 pg (28.0-33.3); Mean Corpuscular Volume 96.9 fL (83.0-100.0); Monocytes # 0.7 K/mcL (0.0-1.3); Monocytes % 13.3 %; Platelet Count 109 K/mcL (140-400); Red Blood Count 2.26 M/mcL (4.19-5.50); Segmented Neutrophils % 47.7 %; White Blood Count 5.1 K/mcL (4.3-11.1)
[2021-03-28] MEDS: Insulin LISPRO 300 UNITS/3 ML VIAL SUBQ SCH ×4 (08:01→19:23)
[2021-03-28] MEDS: *HR* OxyCODONE Immed Rel 5 MG TABLET PO PRN ×2 (08:20→20:52)
[2021-03-28] MEDS: Metoprolol XL (24 HR) Succ 50 MG TAB.ER.24H PO SCH ×2 (08:21→20:52)
[2021-03-28] MEDS: Thiamine (B-1) 100 MG TABLET PO SCH (08:21)
[2021-03-28] MEDS: Vitamin B Complex/Vit C/Vit E 1 EACH TABLET PO SCH (08:21)
[2021-03-28] MEDS: Folic Acid 1 MG TABLET PO SCH (08:21)
[2021-03-28] MEDS: Pregabalin 75 MG CAPSULE PO SCH ×3 (08:21→20:52)
[2021-03-28] MEDS: Loratadine 10 MG TABLET PO SCH (08:21)
[2021-03-28] MEDS: Sodium Bicarbonate 50 MEQ in 0.45 % Sodium Chloride 1,000 ML IVC SCH ×2 (08:22→14:37)
[2021-03-28 08:23] LABS: Neutrophils # 2.4 K/mcL (1.6-8.9)
[2021-03-28 08:37] LABS: Calcium 7.8 mg/dL (8.6-10.3); Potassium 4.4 mEq/L (3.5-5.1)
[2021-03-28 13:21] LABS: Hematocrit 21.9 % (37.5-50.1); Hemoglobin 7.1 g/dL (12.9-16.9)
[2021-03-28] MEDS: risperiDONE 1 MG TABLET PO SCH (20:52)
[2021-03-28] MEDS: Nicotine 21 MG PATCH.TD24 TD SCH (20:54)
[2021-03-29] MEDS: Sodium Bicarbonate 50 MEQ in 0.45 % Sodium Chloride 1,000 ML IVC SCH ×2 (00:50→15:31)
[2021-03-29 05:03] LABS: Basophils % 0.4 %; Eosinophils # 0.1 K/mcL (0.0-0.6); Eosinophils % 1.6 %; Hematocrit 20.8 % (37.5-50.1); Hemoglobin 6.6 g/dL (12.9-16.9); Immature Granulocytes % 0.2 % (0-4); Lymphocytes # 1.8 K/mcL (0.6-4.6); Lymphocytes % 34.1 %; Mean Corpuscular HGB Conc 31.7 g/dL (31.6-35.5); Mean Corpuscular Volume 94.5 fL (83.0-100.0); Monocytes # 0.7 K/mcL (0.0-1.3); Monocytes % 12.9 %; Neutrophils # 2.6 K/mcL (1.6-8.9); Platelet Count 105 K/mcL (140-400); Red Cell Distribution Width 14.6 % (11.5-14.5); Segmented Neutrophils % 50.8 %; White Blood Count 5.1 K/mcL (4.3-11.1)
[2021-03-29 05:22] LABS: Calcium 7.5 mg/dL (8.6-10.3); Potassium 4.3 mEq/L (3.5-5.1)
[2021-03-29] MEDS: *HR* Heparin 5,000 UNIT/ML VIAL SQ SCH ×3 (05:40→20:14)
[2021-03-29] MEDS: Cefepime HCl 1,000 MG in 0.9 % Sodium Chloride Mini Bag 100 ML IVPB SCH ×2 (05:42→17:27)
[2021-03-29] MEDS: Insulin LISPRO 300 UNITS/3 ML VIAL SUBQ SCH ×4 (07:44→20:15)
[2021-03-29] MEDS: Metoprolol XL (24 HR) Succ 50 MG TAB.ER.24H PO SCH ×2 (07:56→20:13)
[2021-03-29] MEDS: Folic Acid 1 MG TABLET PO SCH (07:56)
[2021-03-29] MEDS: Vitamin B Complex/Vit C/Vit E 1 EACH TABLET PO SCH (07:56)
[2021-03-29] MEDS: Thiamine (B-1) 100 MG TABLET PO SCH (07:56)
[2021-03-29] MEDS: Pregabalin 75 MG CAPSULE PO SCH ×3 (07:56→20:13)
[2021-03-29] MEDS: Loratadine 10 MG TABLET PO SCH (07:56)
[2021-03-29] MEDS ORDERED: 0.9 % Sodium Chloride 250 ML ONE (10:11)
[2021-03-29 12:20] LABS: Complement C3 85 mg/dL (87-200)
[2021-03-29 14:10] LABS: Hematocrit 24.7 % (37.5-50.1); Hemoglobin 8.1 g/dL (12.9-16.9)
[2021-03-29] MEDS: risperiDONE 1 MG TABLET PO SCH (20:13)
[2021-03-29] MEDS: Nicotine 21 MG PATCH.TD24 TD SCH (20:20)
[2021-03-30] MEDS: Sodium Bicarbonate 50 MEQ in 0.45 % Sodium Chloride 1,000 ML IVC SCH ×3 (01:46→20:56)
[2021-03-30 05:09] LABS: Basophils % 0.3 %; Eosinophils # 0.1 K/mcL (0.0-0.6); Eosinophils % 2.1 %; Hematocrit 22.1 % (37.5-50.1); Immature Granulocytes % 0.2 % (0-4); Mean Corpuscular HGB Conc 31.7 g/dL (31.6-35.5); Mean Corpuscular Hemoglobin 29.8 pg (28.0-33.3); Mean Platelet Volume 9.9 fL (9.4-12.4); Monocytes # 0.7 K/mcL (0.0-1.3); Monocytes % 11.9 %; Neutrophils # 3.3 K/mcL (1.6-8.9); Platelet Count 105 K/mcL (140-400); Red Blood Count 2.35 M/mcL (4.19-5.50); Segmented Neutrophils % 53.5 %; White Blood Count 6.2 K/mcL (4.3-11.1)
[2021-03-30 05:23] LABS: Calcium 7.4 mg/dL (8.6-10.3); Potassium 3.9 mEq/L (3.5-5.1)
[2021-03-30] MEDS: *HR* Heparin 5,000 UNIT/ML VIAL SQ SCH ×3 (05:49→20:18)
[2021-03-30] MEDS: Cefepime HCl 1,000 MG in 0.9 % Sodium Chloride Mini Bag 100 ML IVPB SCH ×2 (05:50→17:11)
[2021-03-30] MEDS: Insulin LISPRO 300 UNITS/3 ML VIAL SUBQ SCH ×4 (08:31→20:26)
[2021-03-30] MEDS: Vitamin B Complex/Vit C/Vit E 1 EACH TABLET PO SCH (09:47)
[2021-03-30] MEDS: Thiamine (B-1) 100 MG TABLET PO SCH (09:47)
[2021-03-30] MEDS: Metoprolol XL (24 HR) Succ 50 MG TAB.ER.24H PO SCH ×2 (09:48→20:18)
[2021-03-30] MEDS: Pregabalin 75 MG CAPSULE PO SCH ×3 (09:48→20:18)
[2021-03-30] MEDS: Folic Acid 1 MG TABLET PO SCH (09:48)
[2021-03-30] MEDS: Loratadine 10 MG TABLET PO SCH (09:48)
[2021-03-30] MEDS: *HR* OxyCODONE Immed Rel 5 MG TABLET PO PRN (17:11)
[2021-03-30] MEDS: Nicotine 21 MG PATCH.TD24 TD SCH (20:18)
[2021-03-30] MEDS: risperiDONE 1 MG TABLET PO SCH (20:18)
[2021-03-31 04:58] LABS: Hematocrit 22.4 % (37.5-50.1); Hemoglobin 6.8 g/dL (12.9-16.9); Mean Corpuscular HGB Conc 30.4 g/dL (31.6-35.5); Mean Corpuscular Hemoglobin 29.1 pg (28.0-33.3); Mean Corpuscular Volume 95.7 fL (83.0-100.0); Mean Platelet Volume 10.2 fL (9.4-12.4); Platelet Count 104 K/mcL (140-400); Red Blood Count 2.34 M/mcL (4.19-5.50); Red Cell Distribution Width 15.1 % (11.5-14.5); White Blood Count 6.5 K/mcL (4.3-11.1)
[2021-03-31 05:18] LABS: Calcium 7.3 mg/dL (8.6-10.3); Potassium 3.7 mEq/L (3.5-5.1)
[2021-03-31] MEDS: Cefepime HCl 1,000 MG in 0.9 % Sodium Chloride Mini Bag 100 ML IVPB SCH ×2 (06:15→18:00)
[2021-03-31] MEDS: *HR* Heparin 5,000 UNIT/ML VIAL SQ SCH ×3 (06:15→22:46)
[2021-03-31] MEDS: Insulin LISPRO 300 UNITS/3 ML VIAL SUBQ SCH ×4 (09:07→21:37)
[2021-03-31] MEDS: Thiamine (B-1) 100 MG TABLET PO SCH (09:20)
[2021-03-31] MEDS: Metoprolol XL (24 HR) Succ 50 MG TAB.ER.24H PO SCH ×2 (09:20→22:42)
[2021-03-31] MEDS: Folic Acid 1 MG TABLET PO SCH (09:20)
[2021-03-31] MEDS: Loratadine 10 MG TABLET PO SCH (09:21)
[2021-03-31] MEDS: Pregabalin 75 MG CAPSULE PO SCH ×3 (09:21→22:43)
[2021-03-31] MEDS: Vitamin B Complex/Vit C/Vit E 1 EACH TABLET PO SCH (09:21)
[2021-03-31] MEDS ORDERED: 0.9 % Sodium Chloride 1,000 ML ONE (09:27)
[2021-03-31] MEDS: *HR* OxyCODONE Immed Rel 5 MG TABLET PO PRN ×2 (09:48→22:43)
[2021-03-31] MEDS ORDERED: Iron Sucrose Complex 400 MG in 0.9 % Sodium Chloride 250 ML IVPB ONE (12:04)
[2021-03-31 12:15] LABS: ANA IgG by ELISA NONE DETECTED (None Detected)
[2021-03-31] MEDS ORDERED: SODIUM CHLORIDE/NAHCO3/KCL/PEG 4,000 ML SOLN.RECON PO ONE (17:00)
[2021-03-31] MEDS: Sodium Bicarbonate 50 MEQ in 0.45 % Sodium Chloride 1,000 ML IVC SCH ×2 (18:05→18:07)
[2021-03-31 21:37] LABS: Lambda Qnt Free Light Chains 386.96 mg/L (5.71-26.30)
[2021-03-31] MEDS: Nicotine 21 MG PATCH.TD24 TD SCH (22:43)
[2021-03-31] MEDS: risperiDONE 1 MG TABLET PO SCH (22:43)
[2021-04-01] MEDS: *HR* Heparin 5,000 UNIT/ML VIAL SQ SCH ×3 (03:43→21:25)
[2021-04-01 04:59] LABS: Basophils % 0.3 %; Eosinophils # 0.1 K/mcL (0.0-0.6); Eosinophils % 1.9 %; Hematocrit 24.3 % (37.5-50.1); Hemoglobin 7.8 g/dL (12.9-16.9); Immature Granulocytes % 0.3 % (0-4); Lymphocytes # 1.8 K/mcL (0.6-4.6); Lymphocytes % 26.1 %; Mean Corpuscular HGB Conc 32.1 g/dL (31.6-35.5); Mean Corpuscular Hemoglobin 30.2 pg (28.0-33.3); Mean Corpuscular Volume 94.2 fL (83.0-100.0); Mean Platelet Volume 9.8 fL (9.4-12.4); Monocytes # 0.7 K/mcL (0.0-1.3); Monocytes % 10.7 %; Neutrophils # 4.2 K/mcL (1.6-8.9); Platelet Count 108 K/mcL (140-400); Red Blood Count 2.58 M/mcL (4.19-5.50); Red Cell Distribution Width 15.1 % (11.5-14.5); Segmented Neutrophils % 60.7 %; White Blood Count 6.9 K/mcL (4.3-11.1)
[2021-04-01 05:06] LABS: INR 1.7; Prothrombin Time 18.9 Seconds (9.4-12.1)
[2021-04-01] MEDS: *HR* OxyCODONE Immed Rel 5 MG TABLET PO PRN ×2 (05:11→14:22)
[2021-04-01] MEDS: Cefepime HCl 1,000 MG in 0.9 % Sodium Chloride Mini Bag 100 ML IVPB SCH ×2 (05:12→18:12)
[2021-04-01] MEDS: Sodium Bicarbonate 50 MEQ in 0.45 % Sodium Chloride 1,000 ML IVC SCH ×2 (05:13→14:07)
[2021-04-01 05:18] LABS: Calcium 7.4 mg/dL (8.6-10.3); Potassium 4.2 mEq/L (3.5-5.1)
[2021-04-01 05:25] LABS: Albumin 1.8 g/dL (3.5-5.7); Albumin/Globulin Ratio 0.3 (1.1-2.2); Bilirubin,Indirect 0.9 mg/dL (0.0-1.0); Bilirubin,Total 0.9 mg/dL (0.3-1.0); Globulin 6.2 g/dL (2.4-3.5)
[2021-04-01] MEDS ORDERED: Lidocaine -MPF 2% 5 ML VIAL ONE (08:44)
[2021-04-01] MEDS: Folic Acid 1 MG TABLET PO SCH (10:48)
[2021-04-01] MEDS: Vitamin B Complex/Vit C/Vit E 1 EACH TABLET PO SCH (10:48)
[2021-04-01] MEDS: Thiamine (B-1) 100 MG TABLET PO SCH (10:48)
[2021-04-01] MEDS: Metoprolol XL (24 HR) Succ 50 MG TAB.ER.24H PO SCH ×2 (10:48→21:25)
[2021-04-01] MEDS: Loratadine 10 MG TABLET PO SCH (10:49)
[2021-04-01] MEDS: Pregabalin 75 MG CAPSULE PO SCH ×3 (10:49→21:25)
[2021-04-01] MEDS: Insulin LISPRO 300 UNITS/3 ML VIAL SUBQ SCH ×4 (10:49→21:21)
[2021-04-01 11:51] LABS: Kappa Qnt Free Light Chains 508.48 mg/L (3.30-19.40)
[2021-04-01] MEDS ORDERED: Albumin 25% 25gram/100mL 25 GM/100 ML IV.SOLN IVPB ONE (11:55)
[2021-04-01] MEDS: Nicotine 21 MG PATCH.TD24 TD SCH (21:24)
[2021-04-01] MEDS: risperiDONE 1 MG TABLET PO SCH (21:25)
[2021-04-02] MEDS: Sodium Bicarbonate 50 MEQ in 0.45 % Sodium Chloride 1,000 ML IVC SCH ×2 (02:24→14:28)
[2021-04-02 05:37] LABS: Hematocrit 23.6 % (37.5-50.1); Hemoglobin 7.4 g/dL (12.9-16.9); Mean Corpuscular HGB Conc 31.4 g/dL (31.6-35.5); Mean Corpuscular Hemoglobin 29.6 pg (28.0-33.3); Mean Corpuscular Volume 94.4 fL (83.0-100.0); Mean Platelet Volume 10.3 fL (9.4-12.4); Platelet Count 101 K/mcL (140-400); Red Cell Distribution Width 15.4 % (11.5-14.5); White Blood Count 6.2 K/mcL (4.3-11.1)
[2021-04-02 05:50] LABS: Albumin 1.8 g/dL (3.5-5.7); Albumin/Globulin Ratio 0.3 (1.1-2.2); Bilirubin,Direct 0.5 mg/dL (0.0-0.2); Bilirubin,Indirect 0.3 mg/dL (0.0-1.0); Bilirubin,Total 0.8 mg/dL (0.3-1.0); Calcium 7.1 mg/dL (8.6-10.3); Potassium 3.6 mEq/L (3.5-5.1); Total Protein 7.8 g/dL (6.4-8.9)
[2021-04-02] MEDS: *HR* Heparin 5,000 UNIT/ML VIAL SQ SCH ×3 (06:48→21:22)
[2021-04-02] MEDS: Cefepime HCl 1,000 MG in 0.9 % Sodium Chloride Mini Bag 100 ML IVPB SCH ×2 (06:48→17:46)
[2021-04-02] MEDS: Loratadine 10 MG TABLET PO SCH (07:41)
[2021-04-02] MEDS: Vitamin B Complex/Vit C/Vit E 1 EACH TABLET PO SCH (07:42)
[2021-04-02] MEDS: *HR* OxyCODONE Immed Rel 5 MG TABLET PO PRN ×3 (07:42→21:21)
[2021-04-02] MEDS: Metoprolol XL (24 HR) Succ 50 MG TAB.ER.24H PO SCH ×2 (07:43→21:22)
[2021-04-02] MEDS: Thiamine (B-1) 100 MG TABLET PO SCH (07:43)
[2021-04-02] MEDS: Folic Acid 1 MG TABLET PO SCH (07:43)
[2021-04-02] MEDS: Pregabalin 75 MG CAPSULE PO SCH ×3 (07:43→21:22)
[2021-04-02] MEDS: Insulin LISPRO 300 UNITS/3 ML VIAL SUBQ SCH ×4 (07:45→21:09)
[2021-04-02] MEDS: risperiDONE 1 MG TABLET PO SCH (21:21)
[2021-04-02] MEDS: Nicotine 21 MG PATCH.TD24 TD SCH (21:22)
[2021-04-03] MEDS: *HR* OxyCODONE Immed Rel 5 MG TABLET PO PRN ×3 (03:41→20:30)
[2021-04-03] MEDS: *HR* Heparin 5,000 UNIT/ML VIAL SQ SCH ×3 (05:47→20:31)
[2021-04-03] MEDS: Cefepime HCl 1,000 MG in 0.9 % Sodium Chloride Mini Bag 100 ML IVPB SCH ×2 (05:47→18:09)
[2021-04-03] MEDS: Sodium Bicarbonate 50 MEQ in 0.45 % Sodium Chloride 1,000 ML IVC SCH ×2 (05:47→18:19)
[2021-04-03 06:55] LABS: Hematocrit 24.8 % (37.5-50.1); Hemoglobin 8.1 g/dL (12.9-16.9); Mean Corpuscular HGB Conc 32.7 g/dL (31.6-35.5); Mean Corpuscular Hemoglobin 30.8 pg (28.0-33.3); Mean Corpuscular Volume 94.3 fL (83.0-100.0); Mean Platelet Volume 10.2 fL (9.4-12.4); Platelet Count 100 K/mcL (140-400); Red Blood Count 2.63 M/mcL (4.19-5.50); Red Cell Distribution Width 15.3 % (11.5-14.5); White Blood Count 5.2 K/mcL (4.3-11.1)
[2021-04-03 07:14] LABS: Calcium 7.4 mg/dL (8.6-10.3); Potassium 3.6 mEq/L (3.5-5.1)
[2021-04-03] MEDS: Metoprolol XL (24 HR) Succ 50 MG TAB.ER.24H PO SCH ×2 (08:45→20:30)
[2021-04-03] MEDS: Vitamin B Complex/Vit C/Vit E 1 EACH TABLET PO SCH (08:45)
[2021-04-03] MEDS: Loratadine 10 MG TABLET PO SCH (08:45)
[2021-04-03] MEDS: Pregabalin 75 MG CAPSULE PO SCH ×3 (08:45→20:30)
[2021-04-03] MEDS: Folic Acid 1 MG TABLET PO SCH (08:45)
[2021-04-03] MEDS: Thiamine (B-1) 100 MG TABLET PO SCH (08:45)
[2021-04-03] MEDS: Insulin LISPRO 300 UNITS/3 ML VIAL SUBQ SCH ×4 (08:46→20:23)
[2021-04-03 12:21] LABS: Total Volume 24 Hour,Urine 1.99 Liters (0.80-1.80)
[2021-04-03 13:10] LABS: Protein/Creatinine Ratio,Urine 4.58 mg/mg (0.00-0.20); Sodium, Urine 66.9 mEq/L
[2021-04-03] MEDS: risperiDONE 1 MG TABLET PO SCH (20:30)
[2021-04-03] MEDS: Nicotine 21 MG PATCH.TD24 TD SCH (20:37)
[2021-04-04] MEDS: Cefepime HCl 1,000 MG in 0.9 % Sodium Chloride Mini Bag 100 ML IVPB SCH (05:18)
[2021-04-04] MEDS: *HR* OxyCODONE Immed Rel 5 MG TABLET PO PRN ×2 (05:18→11:17)
[2021-04-04] MEDS: *HR* Heparin 5,000 UNIT/ML VIAL SQ SCH (05:19)
[2021-04-04] MEDS: Sodium Bicarbonate 50 MEQ in 0.45 % Sodium Chloride 1,000 ML IVC SCH (05:19)
[2021-04-04 06:04] LABS: Hematocrit 23.7 % (37.5-50.1); Hemoglobin 7.4 g/dL (12.9-16.9); Mean Corpuscular HGB Conc 31.2 g/dL (31.6-35.5); Mean Corpuscular Hemoglobin 29.4 pg (28.0-33.3); Mean Platelet Volume 10.3 fL (9.4-12.4); Platelet Count 100 K/mcL (140-400); Red Blood Count 2.52 M/mcL (4.19-5.50); White Blood Count 6.6 K/mcL (4.3-11.1)
[2021-04-04 06:30] LABS: Calcium 7.3 mg/dL (8.6-10.3); Potassium 3.6 mEq/L (3.5-5.1)
[2021-04-04 06:42] VITALS: PULSE 71
[2021-04-04] MEDS: Vitamin B Complex/Vit C/Vit E 1 EACH TABLET PO SCH (07:51)
[2021-04-04] MEDS: Metoprolol XL (24 HR) Succ 50 MG TAB.ER.24H PO SCH (07:51)
[2021-04-04] MEDS: Folic Acid 1 MG TABLET PO SCH (07:51)
[2021-04-04] MEDS: Thiamine (B-1) 100 MG TABLET PO SCH (07:51)
[2021-04-04] MEDS: Insulin LISPRO 300 UNITS/3 ML VIAL SUBQ SCH ×2 (07:51→12:14)
[2021-04-04] MEDS: Loratadine 10 MG TABLET PO SCH (07:51)
[2021-04-04] MEDS: Pregabalin 75 MG CAPSULE PO SCH (07:51)
[2021-04-04 10:34] VITALS: BP 132/68; TEMP 97.9; O2SAT 100
[2021-04-04] MEDS ORDERED: FLU Vac QV 21-22 (6Month+)/PF 0.5 ML SYRINGE IM ONE (11:48)
[2021-04-05 14:13] LABS: ANCA IFA Titer <1:20 (<1:20)
[2021-04-05 14:53] LABS: ANCA IFA Pattern NONE DETECTED (None Detected); Serine Protease-3 Antibody 15 AU/mL (0-19)
[2021-04-06 23:06] LABS: Urine Collection Volume 1990 mL
[2021-04-07 18:05] LABS: Alpha 2 Globulin (PEP) 0.45 g/dL (0.48-1.05); Beta Globulin (PEP) 1.15 g/dL (0.48-1.10)
[2021-04-08 10:26] LABS: IFE Reflexed IFE Done; Immunoglobulin A 1026 mg/dL (68-408); Immunoglobulin G 4347 mg/dL (768-1632); Immunoglobulin M 123 mg/dL (35-263)
== END 2021-04-04 14:39 | DRG 469 ==
LOC: 4WAOSI 12:46 → EMEROOARM 12:46 → SUATTDRO 17:16 → 4WAOSI 17:41 → SUATTDRO 03-25 16:14
PROVIDERS: ADMIT Internal Medicine; ATTEND Internal Medicine

== ENCOUNTER 2021-04-26 18:57 | Inpatient (IN) ==
[~2021-04-26 18:57] MED LIST: *HR* EPINEPHrine 1 MG/10 ML SYRINGE IVP ONE; Norepinephrine 4 MG/254 ML in 0.9% Sodium Chloride IVC ONE
[2021-04-26] MEDS ORDERED: 0.9 % Sodium Chloride 1,000 ML IV ONE (19:14)
[2021-04-26] MEDS: Norepinephrine 4 MG/254 ML IV.SOLN IVC SCH (19:17)
[2021-04-26 19:18] LABS: ABG Base Excess -11 mEq/L (-2 to 3); ABG HCO3 21 mEq/L (21-27); ABG Oxygen Saturation 84 % (95-98); ABG PCO2 90 mmHg (35-45); ABG PH 6.97 pH Units (7.32-7.45); ABG PO2 78 mmHg (85-104); ABG TCO2 23 mEq/L (20-26)
[2021-04-26] MEDS ORDERED: *HR* EPINEPHrine 100 MCG/10 ML SYRINGE IVP ONE (19:19)
[2021-04-26] MEDS ORDERED: Albumin 25% 25gram/100mL 25 GM/100 ML IV.SOLN IVPB ONE (19:30)
[2021-04-26 19:31] LABS: Hematocrit 24.8 % (37.5-50.1); Hemoglobin 7.3 g/dL (12.9-16.9); Mean Corpuscular HGB Conc 29.4 g/dL (31.6-35.5); Mean Corpuscular Hemoglobin 29.9 pg (28.0-33.3); Mean Platelet Volume 10.4 fL (9.4-12.4); Nucleated Red Blood Cells 0.4 /100 WBC (0); Platelet Count 167 K/mcL (140-400); Red Blood Count 2.44 M/mcL (4.19-5.50); Red Cell Distribution Width 15.1 % (11.5-14.5)
[2021-04-26 19:38] LABS: INR 1.6
[2021-04-26 19:40] LABS: Mean Corpuscular Volume 101.6 fL (83.0-100.0); White Blood Count 16.6 K/mcL (4.3-11.1)
[2021-04-26 19:41] LABS: Activated Partial Thrombo Time 57.1 Seconds (26.0-36.0)
[2021-04-26] MEDS: Vasopressin 40 UNIT in D5% in Water 100 ML IVC SCH (19:49)
[2021-04-26 19:52] LABS: Alanine Aminotransferase 14 Units/L (7-52); Albumin 1.8 g/dL (3.5-5.7); Albumin/Globulin Ratio 0.3 (1.1-2.2); Alkaline Phosphatase 161 Units/L (34-104); Aspartate Amino Transferase 32 Units/L (13-39); BUN/Creatinine Ratio 11 (6-26); Bilirubin,Direct 0.2 mg/dL (0.0-0.2); Bilirubin,Indirect 0.5 mg/dL (0.0-1.0); Bilirubin,Total 0.7 mg/dL (0.3-1.0); Blood Urea Nitrogen 33 mg/dL (6-20); Calcium 8.9 mg/dL (8.6-10.3); Carbon Dioxide 21 mEq/L (23-29); Chloride 105 mEq/L (98-107); Ethanol < 10 mg/dL (Less than 10); Globulin 5.9 g/dL (2.4-3.5); Glucose 193 mg/dL (70-105); Osmolality,Calculated 307 (280-300); Potassium 4.3 mEq/L (3.5-5.1); Sodium 142 mEq/L (136-145); Total Protein 7.7 g/dL (6.4-8.9); Troponin I < 0.03 ng/mL (< 0.04); eGFR For African Americans 27 (> 60); eGFR For Non-African Americans 22 (> 60)
[2021-04-26] MEDS ORDERED: Piperacillin/Tazobactam 3.375 GM in 0.9 % Sodium Chloride Mini Bag 100 ML IVPB ONE (20:32)
[2021-04-26 20:38] LABS: Eosinophils # 0.3 K/mcL (0.0-0.6); Large Platelets Present (Not Present); Lymphocytes # 9.3 K/mcL (0.6-4.6); Monocytes # 0.3 K/mcL (0.0-1.3); Platelet Estimate Normal (Normal)
[2021-04-26 20:39] LABS: Hypochromasia Present (Not Present); Reactive Lymphocytes Present (Not Present)
[2021-04-26 20:40] LABS: ABG Base Excess -3 mEq/L (-2 to 3); ABG HCO3 24 mEq/L (21-27); ABG Oxygen Saturation 98 % (95-98); ABG PCO2 50 mmHg (35-45); ABG PH 7.29 pH Units (7.32-7.45); ABG PO2 124 mmHg (85-104); ABG TCO2 25 mEq/L (20-26); Blood Gas Modality ASSIST CONTROL; Blood Gas VT 500 cc
[2021-04-26 21:22] LABS: Influenza A PCR Negative (Negative); Influenza B PCR Negative (Negative); Resp. Syncytial Virus PCR Negative (Negative)
[2021-04-26 21:26] LABS: SARS-CoV-2 by PCR (In House) Negative (Negative)
[2021-04-26 21:32] LABS: Bacteria,Urine Few per hpf (None-Few); Bilirubin,Urine Negative (Negative); Blood,Urine Large (Negative); Clarity,Urine Turbid (Clear); Color,Urine Yellow (Yellow); Glucose,Urine (UA) Normal (Normal); Ketones,Urine Negative (Negative); Leukocyte Esterase,Urine Large (Negative); Nitrite,Urine Negative (Negative); Protein,Urine 70 mg/dL (Neg-Trace); RBC,Urine TNTC per hpf (0-3); Specific Gravity,Urine 1.013 (1.010-1.025); Urobilinogen,Urine Normal (Normal); WBC,Urine TNTC per hpf (0-3)
[2021-04-26 21:40] LABS: Amphetamine Screen,Urine Negative ng/mL (Cutoff=1000); Barbiturate Screen,Urine Negative ng/mL (Cutoff=200); Benzodiazepines Screen,Urine Negative ng/mL (Cutoff=200); Cannabinoid Screen,Urine Negative ng/mL (Cutoff = 50); Cocaine Screen,Urine Negative ng/mL (Cutoff= 300); Opiate Screen,Urine Negative ng/mL (Cutoff=300); Phencyclidine Screen,Urine Negative ng/mL (Cutoff=25)
[2021-04-26] MEDS ORDERED: Naloxone 0.4 MG/ML INJ IVP PRN (23:14)
[2021-04-26] MEDS ORDERED: Artificial Tears SOLN 15 ML BOTTLE BOTH EYES PRN (23:30)
[2021-04-26 23:50] LABS: ABG Base Excess 1 mEq/L (-2 to 3); ABG HCO3 25 mEq/L (21-27); ABG Oxygen Saturation 98 % (95-98); ABG PCO2 37 mmHg (35-45); ABG PH 7.44 pH Units (7.32-7.45); ABG PO2 106 mmHg (85-104); ABG TCO2 26 mEq/L (20-26); Blood Gas Modality ASSIST CONTROL; Blood Gas VT 500 cc
[2021-04-27] MEDS ORDERED: *HR* Heparin 5,000 UNIT/ML VIAL SQ SCH
[2021-04-27] MEDS ORDERED: Vancomycin 2,000 MG/520 ML IV.SOLN IVPB ONE (00:03)
[2021-04-27] MEDS: Piperacillin/Tazobactam 3.375 GM in 0.9 % Sodium Chloride Mini Bag 100 ML IVPB SCH ×3 (00:14→16:34)
[2021-04-27] MEDS: FentaNYL (PF) 1,000 MCG/100 ML IV.SOLN IVC SCH (00:14)
[2021-04-27] MEDS: 0.9 % Sodium Chloride 1,000 ML IVC SCH ×4 (00:14→19:42)
[2021-04-27] MEDS: Artificial Tears SOLN 15 ML BOTTLE BOTH EYES SCH ×6 (00:15→19:43)
[2021-04-27] MEDS ORDERED: Lactulose Oral Soln 20 GM/30 ML UDC PO ONE (01:41)
[2021-04-27] MEDS ORDERED: Dextrose Gel 15 GM/37.5 ML TUBE PO PRN ×2 (01:42)
[2021-04-27] MEDS ORDERED: *HR* Dextrose 50 % in Water (Syg) 50 ML SYRINGE IVP PRN (01:42)
[2021-04-27] MEDS ORDERED: D5% in Water 1,000 ML IVC PRN (01:42)
[2021-04-27] MEDS: Thiamine (B-1) 100 MG, Folic Acid 1 MG, MVI, adult with vitamin K 10 ML in 0.9 % Sodi... IVPB SCH ×2 (02:06→17:18)
[2021-04-27] MEDS: Nystatin POWDER 30 GM BOTTLE TP SCH ×4 (02:07→19:54)
[2021-04-27] MEDS: Norepinephrine 4 MG/254 ML IV.SOLN IVC SCH ×4 (02:28→23:26)
[2021-04-27 04:03] LABS: ABG Base Excess 1 mEq/L (-2 to 3); ABG HCO3 26 mEq/L (21-27); ABG Oxygen Saturation 100 % (95-98); ABG PCO2 38 mmHg (35-45); ABG PH 7.44 pH Units (7.32-7.45); ABG PO2 212 mmHg (85-104); ABG TCO2 27 mEq/L (20-26); Blood Gas Modality ASSIST CONTROL; Blood Gas VT 500 cc
[2021-04-27] MEDS ORDERED: Perflutren Lipid Microsphere 1.3 ML in 0.9 % Sodium Chloride 8.7 ML IVP PRN (04:12)
[2021-04-27 05:04] LABS: Hematocrit 20.2 % (37.5-50.1); Hemoglobin 6.5 g/dL (12.9-16.9); Immature Granulocytes % 0.4 % (0-4); Lymphocytes # 0.7 K/mcL (0.6-4.6); Lymphocytes % 6.7 %; Mean Corpuscular HGB Conc 32.2 g/dL (31.6-35.5); Mean Corpuscular Hemoglobin 30.1 pg (28.0-33.3); Mean Platelet Volume 10.4 fL (9.4-12.4); Monocytes # 0.7 K/mcL (0.0-1.3); Monocytes % 6.8 %; Neutrophils # 8.8 K/mcL (1.6-8.9); Platelet Count 105 K/mcL (140-400); Red Blood Count 2.16 M/mcL (4.19-5.50); Red Cell Distribution Width 14.8 % (11.5-14.5); Segmented Neutrophils % 86.1 %; White Blood Count 10.2 K/mcL (4.3-11.1)
[2021-04-27 05:09] LABS: Mean Corpuscular Volume 93.5 fL (83.0-100.0)
[2021-04-27 05:26] LABS: Albumin/Globulin Ratio 0.4 (1.1-2.2); Bilirubin,Total 0.8 mg/dL (0.3-1.0); Calcium 7.5 mg/dL (8.6-10.3); Globulin 5.1 g/dL (2.4-3.5); Magnesium 1.3 mg/dL (1.6-2.6); Phosphorous 4.8 mg/dL (2.7-4.5); Total Protein 7.1 g/dL (6.4-8.9)
[2021-04-27] MEDS: Insulin LISPRO 300 UNITS/3 ML VIAL SUBQ SCH ×3 (05:54→17:15)
[2021-04-27] MEDS: Chlorhexidine Rinse 15 ML MOUTHWASH MM SCH ×2 (08:25→19:53)
[2021-04-27] MEDS: Pantoprazole 40 MG VIAL IVP SCH (08:29)
[2021-04-27] MEDS: ALPRAZolam 1 MG TABLET GTUBE SCH ×2 (11:44→19:43)
[2021-04-27 14:54] LABS: Hemoglobin 7.8 g/dL (12.9-16.9)
[2021-04-27 14:55] LABS: Calcium 7.7 mg/dL (8.6-10.3); Potassium 4.3 mEq/L (3.5-5.1)
[2021-04-27] MEDS: Vasopressin 40 UNIT in D5% in Water 100 ML IVC SCH (17:15)
[2021-04-28] MEDS: Artificial Tears SOLN 15 ML BOTTLE BOTH EYES SCH ×6 (00:03→20:52)
[2021-04-28] MEDS: Piperacillin/Tazobactam 3.375 GM in 0.9 % Sodium Chloride Mini Bag 100 ML IVPB SCH ×2 (00:03→08:22)
[2021-04-28] MEDS: Insulin LISPRO 300 UNITS/3 ML VIAL SUBQ SCH ×3 (00:04→12:55)
[2021-04-28] MEDS: FentaNYL (PF) 1,000 MCG/100 ML IV.SOLN IVC SCH ×2 (00:59→20:09)
[2021-04-28] MEDS: 0.9 % Sodium Chloride 1,000 ML IVC SCH (03:35)
[2021-04-28] MEDS: ALPRAZolam 1 MG TABLET GTUBE SCH (03:51)
[2021-04-28 03:58] LABS: ABG Base Excess 0 mEq/L (-2 to 3); ABG HCO3 25 mEq/L (21-27); ABG Oxygen Saturation 96 % (95-98); ABG PCO2 42 mmHg (35-45); ABG PH 7.39 pH Units (7.32-7.45); ABG PO2 85 mmHg (85-104); ABG TCO2 26 mEq/L (20-26); Blood Gas Modality ASSIST CONTROL; Blood Gas VT 500 cc
[2021-04-28] MEDS: Norepinephrine 4 MG/254 ML IV.SOLN IVC SCH (04:56)
[2021-04-28 05:18] LABS: Calcium 7.6 mg/dL (8.6-10.3); Magnesium 1.7 mg/dL (1.6-2.6); Phosphorous 5.2 mg/dL (2.7-4.5); Potassium 4.1 mEq/L (3.5-5.1)
[2021-04-28 05:26] LABS: Troponin I 0.04 ng/mL (< 0.04)
[2021-04-28 05:29] LABS: VBG Ionized Calcium 1.03 mmol/L (1.15-1.35)
[2021-04-28 05:29] LABS: Procalcitonin 8.55 ng/mL (0.00-0.15)
[2021-04-28 05:49] LABS: Folate > 22.3 ng/mL (3.0-16.0); Vitamin B12 > 1500 pg/mL (250-1100)
[2021-04-28] MEDS: Calcium Gluconate 1gm/50mL 1 GM/50 ML BAG IVPB SCH ×2 (05:51→06:50)
[2021-04-28 06:07] LABS: INR 1.4; Prothrombin Time 15.7 Seconds (9.4-12.1)
[2021-04-28] MEDS: Chlorhexidine Rinse 15 ML MOUTHWASH MM SCH ×2 (08:22→20:52)
[2021-04-28] MEDS: Pantoprazole 40 MG VIAL IVP SCH (08:22)
[2021-04-28] MEDS: Nystatin POWDER 30 GM BOTTLE TP SCH ×3 (08:23→21:37)
[2021-04-28] MEDS: Lacri-Lube 3.5 GM TUBE BOTH EYES SCH ×2 (11:00→16:24)
[2021-04-28] MEDS ORDERED: levETIRAcetam 1,000 MG in 0.9 % Sodium Chloride 100 ML IVPB ONE (13:39)
[2021-04-28] MEDS ORDERED: LEVETIRACETAM IVPB ONE (14:00)
[2021-04-28] MEDS ORDERED: SODIUM CHLORIDE 0.9% IVPB ONE ×2 (14:00→16:00)
[2021-04-28] MEDS ORDERED: PHENobarbital 65 MG/ML VIAL IVP ONE (14:30)
[2021-04-28] MEDS: Midazolam HCl 50 MG/100 ML IV.SOLN IVC SCH (14:55)
[2021-04-28] MEDS: *HR* Heparin 5,000 UNIT/ML VIAL SQ SCH ×3 (14:57→21:39)
[2021-04-28] MEDS ORDERED: Piperacillin/Tazobactam 3.375 GM in 0.9 % Sodium Chloride Mini Bag 100 ML IVPB SCH (16:00)
[2021-04-28] MEDS ORDERED: [UNRECOGNIZED DRUG - OTHER] IVPB ONE (16:00)
[2021-04-28] MEDS ORDERED: FOSPHENYTOIN SODIUM IVPB ONE (16:00)
[2021-04-28 20:27] VITALS: TEMP 96.3
[2021-04-28] MEDS ORDERED: Phenytoin 250 MG, 0.22 MICRON FILTER SET 1 EACH in 0.9 % Sodium Chloride 50 ML IVPB SCH (21:00)
[2021-04-28] MEDS ORDERED: levETIRAcetam 1,000 MG in 0.9 % Sodium Chloride 100 ML IVPB SCH (21:00)
[2021-04-28 21:50] VITALS: O2SAT 100
[2021-04-28 22:14] VITALS: PULSE 60
[2021-04-28] MEDS: Thiamine (B-1) 100 MG, Folic Acid 1 MG, MVI, adult with vitamin K 10 ML in 0.9 % Sodi... IVPB SCH (22:51)
[2021-04-29] MEDS: Midazolam HCl 50 MG/100 ML IV.SOLN IVC SCH (00:07)
[2021-04-29 00:22] VITALS: BP 109/57
== END 2021-04-29 00:06 | disposition short-term general hospital (02) | DRG 137 ==
LOC: ICNU 18:57 → EMEROOARM 18:57 → ICNU 22:54
PROVIDERS: ADMIT Internal Medicine; ATTEND Internal Medicine